=== PATIENT | female | born 1955 | race Caucasian/White ===

== ENCOUNTER 2018-12-08 20:03 | Inpatient (IN) | payer MEDICAID, OTHER | END 2018-12-11 13:30 | disposition home or self-care (01) | LOC: ER 20:03 → 4TH 21:00 ==

== ENCOUNTER 2019-01-10 07:44 | Outpatient (CLI) | payer MEDICAID ==
[~2019-01-10] VITALS: Ht 165.1 cm; Wt 74.7 kg
== END 2019-01-10 12:48 | disposition home or self-care (01) ==
LOC: PREOP 07:44
PROVIDERS: ATTEND Surgery
DX: Z01.818 Encounter for other preprocedural examination (principal)

== ENCOUNTER → 2019-01-11 | Day surgery (SDC) | payer MEDICAID ==
[2019-01-10] MEDS: MIDAZOLAM 2 MG/2 ML (VERSED) VIAL IVP ONE (13:54)
[~2019-01-11] VITALS: Ht 165.1 cm; Wt 74.7 kg
[~2019-01-11] MED LIST: ACET325T38 PO; ACETAMINOPHEN 325 MG TABLET PO PRN; AMLO10TA7 PO; ASCO-262 PO; ASPI-983 PO; ATOR80TA76 PO; BUDE10.2 INH; CALC300T4 PO; CARV3.122 PO; CLOP75TA69 PO; FERR-84 PO; GUAI120013 PO; HYDROcodone/APAP 5 MG/325 MG (LORTAB) TAB PO PRN; ISOS30TA3 PO; LIDOCAINE JELLY 2% 6 ML SYRINGE MM PRN; LIDOCAINE JELLY 2% 6 ML SYRINGE ONE; LOSA100T57 PO; MIDAZOLAM 2 MG/2 ML (VERSED) VIAL ONE; MULT-35 PO; MULT-351 PO; NITR0.4T42 SL; NS IV 500 ML 500 ML IV SCH; NS IV 500 ML 500 ML ONE; ONDANSETRON 4 MG/2 ML (SDV) Z0FRAN IV PRN; PANT40TA3 PO; SENN-36 PO; SUCR1TAB36 PO; ZINC50TA4 PO; fentaNYL INJECTION 100 MCG/2 ML AMP IVP ONE; fentaNYL INJECTION 100 MCG/2 ML AMP ONE; morphine INJ 10 MG/ML 1ML (SYR OR VIAL) IV PRN
--- NOTE | 2019-01-11 11:16 | Conscious Sedation/ASA ---
Conscious Sedation Pre-Proced Time 11:15 ASA Score 2 For ASA 3 and 4: Consider anesthesia and medical clearance. Also, for patients with a history of failed moderate sedation consider anesthesia. Airway Lungs Heart ASA score ASA 1: a normal healthy patient ASA 2: a patient with a mild systemic disease (mid diabetes, controlled hypertension, obesity ASA 3: a patient with a severe systemic disease that limits activity (angina , COPD, prior Myocardial infarction) ASA 4: a patient with an incapacitating disease that is a constant threat to life (CHF, renal failure) ASA 5: a moribund patient not expected to survive 24 hrs. (ruptured aneurysm) ASA 6: a declared brain- patient whose organs are being harvested. For emergent operations, add the letter E after the classification Mallampati Classification Grade 2 Sedation Plan Analgesia, Amnesia, Plan communicated to team members, Discussed options with patient/fam, Discussed risks with patient/fam The patient is an appropriate candidate to undergo the planned procedure, sedation, and anesthesia. The patient immediately re-assessed prior to indication. NED HICKMAN MD Jan 11, 2019 11:16
--- NOTE | 2019-01-11 11:18 | Progress Note-Pre Operative ---
Pre-Operative Progress Note H&P Reviewed The H&P was reviewed, patient examined and no changes noted. Date Seen by Provider: Jan 11, 2019 Time Seen by Provider: 11:15 Date H&P Reviewed: Jan 11, 2019 Time H&P Reviewed: 11:15 Pre-Operative Diagnosis: NED Jorge MD Jan 11, 2019 11:18
--- NOTE | 2019-01-11 11:22 | Discharge Inst-Surgical ---
D/C Lap Instructions-VICK Follow Up Appt 10 yrs Activity as tolerated High Fiber Diet 25g or more per day Avoid Alcohol, Caffeine, Spicy Argentine and Acid foods. Drink 64 fluid oz or more of fluids per day. Symptoms to Report: Fever over 101 degree F, Nausea/Vomiting If any problems/questions: Contact your physician or go to Emergency Room NED HICKMAN MD Jan 11, 2019 11:22
[2019-01-11 11:30] VITALS: BP 144/62
[2019-01-11] MEDS: MIDAZOLAM 2 MG/2 ML (VERSED) VIAL IVP ONE (13:54)
[2019-01-11 14:45] VITALS: BP 194/80
--- NOTE | 2019-01-11 14:55 | Progress Note-Post Operative ---
Post-Operative Progess Note Surgeon (s)/Welfare Investigator (s) Surgeon NED HICKMAN MD Welfare Investigator: none Pre-Operative Diagnosis screening Post-Operative Diagnosis chronic stage 2 ext and int hemorrhoids, mild stage 1 rectal prolapse. Procedure & Operative Findings Date of Procedure 01/11/19 Procedure Performed/Findings Colonoscopy. Anesthesia Type CS Estimated Blood Loss Estimated blood loss (mL): minimal Specimens/Packing Specimens Removed none NED HICKMAN MD Jan 11, 2019 14:55
[2019-01-11 15:15] VITALS: BP 191/69
[2019-01-11 15:25] VITALS: BP 191/69
--- NOTE | 2019-01-11 22:23 | OPERATIVE REPORT ---
DATE OF SERVICE: 01/11/2019 ATTENDING PRIMARY CARE PHYSICIAN: Dr. Villafana. PREOPERATIVE DIAGNOSIS: Anemia. POSTOPERATIVE DIAGNOSIS: Mild stage between stage I and II rectal prolapse with no active bleeding identified. There was also chronic stage II external and internal hemorrhoids. Remainder of the colon and rectum were normal. There were no bleeding sources identified. PROCEDURE: Colonoscopy. SURGEON: Ned Sanchez MD ANESTHESIA: Conscious sedation. ESTIMATED BLOOD LOSS: Minimal. FINDINGS: As above in the postoperative diagnosis. DISPOSITION: The patient tolerated the procedure well. INDICATIONS: The patient is a 63-year-old female with a history of coronary artery disease and myocardial infarction. She underwent a cardiac catheterization and two stents placed. She was on anticoagulation for this. She was seen by her elementary assistant principal at [facility] and she had blood work drawn due to a pale nature of her skin and found to be anemic with a hemoglobin of 5.3. She was admitted and given two units of blood, which increased appropriately. Upon further questioning, she had reported dark tarry stools and worsening shortness of breath as well as fatigue. On 12/09/2018, she underwent an EGD with biopsies. Findings included a reflux esophagitis between stage II and III small hiatal hernia 1.5 cm in size as well as a moderate gastritis and a formal ulcer of the antrum with an overlying fibrin clot, no active bleeding. The ulcer appeared small approximately 3 to 4 mm in diameter. Biopsies were negative for malignancy as well as negative for H. 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 Since that time, she has been on Protonix and Carafate as well as iron supplementation. She is referred again for a colonoscopy for she has not received a colonoscopy at this point in her life. She does not report any red blood per rectum. DESCRIPTION OF PROCEDURE: The patient was brought to the endoscopy suite, laid in left lateral decubitus position with head slightly elevated. After adequate IV pain and sedating medications and conscious sedation anesthesia, a digital rectal examination was performed. Mild chronic stage II external and internal hemorrhoids were identified, which were not actively edematous nor inflamed and no bleeding. Normal sphincter tone was felt and there were no palpable masses. There appeared to be an early stage I rectal prolapse with mild irritation of the rectal mucosa; however, no active bleeding. The endoscope was then intubated to the anus and rectum gently insufflated. A biopsy was taken of the area of irritation to rule out any other etiology. Endoscope was then advanced to the valves of Banuelos of the rectum with no polyps or any neoplasms identified. Through the sigmoid colon, there were no diverticulosis identified. The endoscope was then advanced to the remainder of the descending, transverse and ascending colon to the cecum. These segments were normal. There were no polyps or any neoplasms identified. The endoscope was then slowly withdrawn while taking a second look and suctioning of residual air with no additional findings. The patient tolerated the procedure well. We will recommend medical management with a high fiber diet with at least 30 grams of fiber per day as well as significant amounts of water to promote soft stools on a daily basis. She also needs defecography training with a pelvic positioning during defecation as well as no straining at any time. Job ID: [id number] DocumentID: [id number] Dictated Date: 01/11/2019 14:44:39 [place] [place]orker Date: 01/11/2019 22:23:16 Dictated By: NED SANCHEZ MD MTDD
== END | disposition home or self-care (01) ==
LOC: ENDO 10:42
PROVIDERS: ATTEND Surgery
DX: Z12.11 Encounter for screening for malignant neoplasm of colon (principal); D50.9 Iron deficiency anemia, unspecified; K62.3 Rectal prolapse; K64.1 Second degree hemorrhoids; K21.0 Gastro-esophageal reflux disease with esophagitis; K44.9 Diaphragmatic hernia without obstruction or gangrene; K29.70 Gastritis, unspecified, without bleeding; K25.9 Gastric ulcer, unspecified as acute or chronic, without hemorrhage or perforation; I25.10 Atherosclerotic heart disease of native coronary artery without angina pectoris; I25.2 Old myocardial infarction; I73.9 Peripheral vascular disease, unspecified; I10 Essential (primary) hypertension; E78.00 Pure hypercholesterolemia, unspecified; K70.30 Alcoholic cirrhosis of liver without ascites; Z79.82 Long term (current) use of aspirin; Z79.899 Other long term (current) drug therapy; Z79.02 Long term (current) use of antithrombotics/antiplatelets; Z87.891 Personal history of nicotine dependence

== ENCOUNTER 2019-03-21 17:03 | Inpatient (IN) | payer MEDICAID ==
[~2019-03-21] VITALS: Ht 165.1 cm; Wt 77.1 kg
[~2019-03-21 17:03] MED LIST changes: -ACETAMINOPHEN 325 MG TABLET PO PRN; -HYDROcodone/APAP 5 MG/325 MG (LORTAB) TAB PO PRN; -LIDOCAINE JELLY 2% 6 ML SYRINGE MM PRN; -LIDOCAINE JELLY 2% 6 ML SYRINGE ONE; -MIDAZOLAM 2 MG/2 ML (VERSED) VIAL ONE; -NS IV 500 ML 500 ML IV SCH; -NS IV 500 ML 500 ML ONE; -ONDANSETRON 4 MG/2 ML (SDV) Z0FRAN IV PRN; -fentaNYL INJECTION 100 MCG/2 ML AMP IVP ONE; -fentaNYL INJECTION 100 MCG/2 ML AMP ONE; -morphine INJ 10 MG/ML 1ML (SYR OR VIAL) IV PRN
[2019-03-21] MEDS ORDERED: FAMOTIDINE 20MG/2ML IV (PEPCID) IVP ONE (17:30)
[2019-03-21] MEDS ORDERED: ONDANSETRON 4 MG/2 ML (SDV) Z0FRAN IVP ONE (17:30)
--- NOTE | 2019-03-21 17:30 | ED Abdominal Pain ---
General Stated Complaint: NAUSEA,WEAK,HEADACHE,LEGS NUMB Source of Information: Patient Exam Limitations: No Limitations History of Present Illness Date Seen by Provider: Mar 21, 2019 Time Seen by Provider: 17:27 Initial Comments Patient is a 63-year-old female with history of peripheral vascular disease, peptic ulcer disease and chronic anemia requiring transfusion in November 2018who presents with generalized weakness fatigue and increased shortness of breath over the past 10 days. Patient also reports black tarry and intermittent upper abdominal pain. Reports nausea, denies vomiting, hematemesis or coffee- ground emesis. Denies chest pain and palpitations. Patient is currently on aspirin and Plavix for treatment of peripheral vascular disease. She states she ran out of iron pills one month ago and is currently between medical providers. No other acute symptoms or complaints. Timing/Duration: 1 Week Severity/Quality: Moderate Location: Epigastric Radiation: No Radiation Activities at Onset: None Modifying Factors: Improves With Eating Associated Symptoms: No Back Pain, No Chest Pain, No Fever/Chills; Fatigue, Heartburn, Nausea/Vomiting; No Syncope; Weakness Allergies and Home Medications Allergies Coded Allergies: No Known Drug Allergies (Unverified , 01/10/19) Home Medications Acetaminophen 325 Mg Tablet, 650 MG PO Q6H PRN for PAIN-MILD, (Reported) Amlodipine Besylate 10 Mg Tablet, 10 MG PO DAILY, (Reported) Ascorbate Calcium 500 Mg Tablet, 500 MG PO DAILY, (Reported) Aspirin 81 Mg Tablet.dr, 81 MG PO DAILY, (Reported) Atorvastatin Calcium 80 Mg Tablet, 80 MG PO DAILY, (Reported) Budesonide/Formoterol Fumarate 10.2 Gm Hfa.aer.ad, 2 PUFF INH BID PRN for SHORTNESS OF BREATH, (Reported) Calcium Carbonate 300 Mg Tab.chew, 500 MG PO DAILY, (Reported) Carvedilol 3.125 Mg Tablet, 3.125 MG PO BID, (Reported) Clopidogrel Bisulfate 75 Mg Tablet, 75 MG PO DAILY, (Reported) Ferrous Sulfate 325 Mg Tablet, 325 MG PO Q48H Prescribed by: RUSSELL EVANS on 12/11/18 1124 Guaifenesin 1,200 Mg Tab.er.12h, 1,200 MG PO BID, (Reported) Isosorbide Mononitrate 30 Mg Tab.er.24h, 30 MG PO DAILY, (Reported) Losartan Potassium 100 Mg Tablet, 100 MG PO DAILY, (Reported) Multivitamin 1 Each Tablet, 1 EACH PO DAILY, (Reported) Nitroglycerin 0.4 Mg Tab.subl, 0.4 MG SL UD PRN for CHEST PAIN, (Reported) Pantoprazole Sodium 40 Mg Tablet.dr, 40 MG PO DAILY@0700 Prescribed by: RUSSELL EVANS on 12/11/18 1112 Sennosides 8.6 Mg Tablet, 8.6 MG PO DAILY, (Reported) Sucralfate 1 Gm Tablet, 1 GM PO QID, (Reported) Zinc Gluconate 50 Mg Tablet, 50 MG PO DAILY, (Reported) Patient Home Medication List Home Medication List Reviewed: Yes Review of Systems Review of Systems Constitutional: see HPI EENTM: See HPI Respiratory: See HPI Gastrointestinal: See HPI Genitourinary: See HPI Musculoskeletal: see HPI Skin: see HPI Psychiatric/Neurological: See HPI Endocrine: See HPI Past Bwvozjl-Snnfqs-Gipkid Hx Past Med/Social Hx: Reviewed Nursing Past Med/Soc Hx Patient Social History Drug of Choice: HX ETOH ABUSE Type Used: Cigarettes Former Smoker, Quit: Nov 22, 2015 2nd Hand Smoke Exposure: No Recent Foreign Travel: No Contact w/Someone Who Travel: No Immunizations Up To Date Date of Pneumonia Vaccine: Nov 28, 2018 Date of Influenza Vaccine: Aug 22, 2018 Seasonal Allergies Seasonal Allergies: No Past Medical History Surgeries: Yes (CARDIAC CATH--STENTS X 2; CERVICAL CONIZATION) Cardiac, Coronary Stent, Gallbladder Respiratory: Yes COPD Cardiac: Yes Coronary Artery Disease, Heart Attack, High Cholesterol, Hypertension, Peripheral Vascular Neurological: Yes Headaches /Migraines Reproductive Disorders: Yes (CERVICAL DYSPLASIA. 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 9.6oz. 74.275287vl; 27.4 BMI Method:Stated General Appearance: WD/WN, no apparent distress HEENT: PERRL/EOMI, normal ENT inspection, pharynx normal, pale conjunctivae (R) , pale conjunctivae (L) Neck: full range of motion, supple Respiratory: chest non-tender, lungs clear Cardiovascular: regular rate, rhythm Gastrointestinal: soft, tenderness (mild epigastric pain, tenderness.) Extremities: normal range of motion, non-tender Back: normal inspection Skin: pallor Focused Exam Sepsis Stage: Ruled Out Progress/Results/Core Measures Results/Orders Lab Results Laboratory Tests Test 03/21/19 17:17 Range/Units White Blood Count 8.2 4.3-11.0 10^3/uL Red Blood Count 2.33 L 4.35-5.85 10^6/uL Hemoglobin 4.9 *L 11.5-16.0 G/DL Hematocrit 18 *L 35-52 % Mean Corpuscular Volume 79 L 80-99 FL Mean Corpuscular Hemoglobin 21 L 25-34 PG Mean Corpuscular Hemoglobin Concent 27 L 32-36 G/DL Red Cell Distribution Width 18.6 H 10.0-14.5 % Platelet Count 333 130-400 10^3/uL Mean Platelet Volume 10.8 H 7.4-10.4 FL Neutrophils (%) (Auto) 69 42-75 % Lymphocytes (%) (Auto) 23 12-44 % Monocytes (%) (Auto) 8 0-12 % Eosinophils (%) (Auto) 1 0-10 % Basophils (%) (Auto) 0 0-10 % Neutrophils # (Auto) 5.7 1.8-7.8 X 10^3 Lymphocytes # (Auto) 1.8 1.0-4.0 X 10^3 Monocytes # (Auto) 1.0 0.0-1.0 X 10^3 Eosinophils # (Auto) 0.0 0.0-0.3 10^3/uL Basophils # (Auto) 0.0 0.0-0.1 10^3/uL Sodium Level 141 135-145 MMOL/L Potassium Level 4.1 3.6-5.0 MMOL/L Chloride Level 105 98-107 MMOL/L Carbon Dioxide Level 16 L 21-32 MMOL/L Anion Gap 20 H 5-14 MMOL/L Blood Urea Nitrogen 19 H 7-18 MG/DL Creatinine 0.74 0.60-1.30 MG/DL Estimat Glomerular Filtration Rate > 60 BUN/Creatinine Ratio 26 Glucose Level 125 H 70-105 MG/DL Calcium Level 8.6 8.5-10.1 MG/DL Troponin T 74 H <=10 NG/L My Orders Orders - ALEJANDRA HUIZAR DO Ekg Tracing (03/21/19 17:25) Troponin T (03/21/19 17:25) Basic Metabolic Panel (03/21/19 17:25) Cbc With Automated Diff (03/21/19 17:25) Occult Blood Stool (03/21/19 17:25) Famotidine Injection (Pepcid Injection) (03/21/19 17:30) Ondansetron Injection (Zofran Injectio (03/21/19 17:30) Ua Culture If Indicated (03/21/19 17:31) Lipase (03/21/19 17:31) Type And Screen (03/21/19 17:31) Protime With Inr (03/21/19 17:43) Medications Given in ED Current Medications Medications Dose Ordered Sig/Zulma Route Start Time Stop Time Status Last Admin Dose Admin Famotidine 20 mg ONCE ONCE IVP 03/21/19 17:30 03/21/19 17:31 DC 03/21/19 17:36 20 MG Ondansetron HCl 4 mg ONCE ONCE IVP 03/21/19 17:30 03/21/19 17:31 DC 03/21/19 17:36 4 MG Initial ECG Impression: Normal Departure Communication (Admissions) Vital signs stable with exception of low O2 saturation. Patient has history of chronic lung disease placed on 2 L nasal cannula. IV Pepcid and Zofran given. The globe is 4.9, hematocrit 18. Type and cross ordered. No crossmatched blood available at this facility. Dr. Prince accepts patient for admission at [facility]. Patient stable at time of transfer. Impression Primary Impression: Symptomatic anemia Disposition: ADMITTED INPATIENT Condition: Stable Transfer Time Spoke to Accepting Phy: 17:58 Departure-Patient Inst. Referrals: CURLY FORREST DO (PCP/Family) Primary Care Physician ALEJANDRA HUIZAR DO Mar 21, 2019 17:30
[2019-03-21 17:40] LABS: HEMOGLOBIN 4.9 G/DL (11.5-16.0); MEAN CORPUSCULAR HEMOGLOBIN 21 PG (25-34); WHITE BLOOD COUNT 8.2 10^3/uL (4.3-11.0)
[2019-03-21 17:41] LABS: BASOPHILS % (AUTO) 0 % (0-10); EOSINOPHILS % (AUTO) 1 % (0-10); HEMATOCRIT 18 % (35-52); LYMPHOCYTES # (AUTO) 1.8 X 10^3 (1.0-4.0); LYMPHOCYTES % (AUTO) 23 % (12-44); MEAN CORPUSCULAR HGB CONC 27 G/DL (32-36); MEAN CORPUSCULAR VOLUME 79 FL (80-99); MEAN PLATELET VOLUME 10.8 FL (7.4-10.4); MONOCYTES % (AUTO) 8 % (0-12); NEUTROPHILS # (AUTO) 5.7 X 10^3 (1.8-7.8); NEUTROPHILS % (AUTO) 69 % (42-75); PLATELET COUNT 333 10^3/uL (130-400); RED CELL DISTRIBUTION WIDTH 18.6 % (10.0-14.5)
--- NOTE | 2019-03-21 17:45 | NUR ---
PT IS ACCEPTED AT [facility]. AWAIT ROOM NUMBER
[2019-03-21 17:51] LABS: SODIUM 141 MMOL/L (135-145)
[2019-03-21 17:52] LABS: BUN/CREATININE RATIO 26; CALCIUM 8.6 MG/DL (8.5-10.1); CARBON DIOXIDE 16 MMOL/L (21-32); CHLORIDE 105 MMOL/L (98-107); CREATININE SERUM 0.74 MG/DL (0.60-1.30); GFR ESTIMATED > 60; GLUCOSE 125 MG/DL (70-105); POTASSIUM 4.1 MMOL/L (3.6-5.0)
[2019-03-21 18:02] LABS: INR 1.1 (0.8-1.4); PROTHROMBIN TIME PATIENT 14.3 SEC (12.2-14.7)
--- NOTE | 2019-03-21 18:15 | NUR ---
CALLED GROUND SUPPORT EQUIPMENT ASSEMBLER AND NOTIFIED SHE GAVE ROOM NUMBER TO REGISTRATION EARLIER. WENT TO REGISTRATION TO RECEIVE ROOM NUMBER AND GIVE ORDERS FOR ADMIT.
--- NOTE | 2019-03-21 18:32 | NUR ---
ATTEMPT PT REPORT, DUE TO INCLEMENT WEATHER CONDITIONS WITH TORNADO WARNING/HIGH WINDS PT REMAINS IN [facility] [place] NURSING STAFF MOVING PTS TO SAFE LOCATIONS. WILL ATTEMPT REPORT AGAIN WEATHER MONITORED.
--- NOTE | 2019-03-21 18:40 | NUR ---
FAXED EMS REQUEST TO [facility]
--- NOTE | 2019-03-21 18:48 | NUR ---
EMS HERE READY FOR TRANSPORT.
--- NOTE | 2019-03-21 19:00 | NUR ---
UNABLE TO GIVE REPORT AT THIS TIME R/T SHIFT CHANGE.
--- NOTE | 2019-03-21 19:20 | NUR ---
CALL REC'D FROM MARIA ALEJANDRA LEIGH AND REPORT GIVEN.
[2019-03-21] MEDS ORDERED: NS IV 500 ML 500 ML IV ONE (20:00)
--- NOTE | 2019-03-21 20:00 | NUR ---
ILIR HOOK admitted to room 426-1, with an admitting diagnosis of BLOOD LOSS ANEMIA, on 03/21/19 from [facility] via EMS STRETCHER, accompanied by EMS STAFF.ILIR HOOK introduced to surroundings, call light, bed controls, phone, TV, temperature control, lights, meal times, smoking policy, visitor policy, side rail policy, bathrooms and showers. Patient Rights given to patient in the handbook.ILIR HOOK verbalizes understanding that [facility] is not responsible for the loss or damage to any personal effects or valuables that are kept in the patients posession during their hospitalization.
[2019-03-21 20:59] VITALS: BP 146/58
[2019-03-21 21:05] VITALS: BP 103/49
[2019-03-21 21:16] VITALS: BP 155/66
[2019-03-21 22:59] VITALS: BP 186/88
--- NOTE | 2019-03-21 23:15 | NUR ---
PT REPORTS AT THIS TIME THAT HER BLOOD PRESSURE READS HIGHER ON ONE SIDE THAN THE OTHER D/T BLOCKAGE IN HER NECK. BP HAS BEEN OBTAINED ON RT ARM DURING BLOOD TRANSFUSIONS CURRENT BP ON RT SIDE IS 214/88, BP OBTAINED ON LEFT SIDE AND IS 150/67 HR 70 RR 14 SPO2 98%/3LPM NC TEMP 97.7
[2019-03-21 23:16] VITALS: BP 150/67
[2019-03-22] VITALS (7 sets, daily range): BP systolic 103–162; BP diastolic 62–75
[2019-03-22] MEDS ORDERED: FUROSEMIDE 40 MG/4 ML INJ (LASIX) IVP ONE (01:30)
[2019-03-22 04:37] LABS: BASOPHILS % (AUTO) 0 % (0-10); EOSINOPHILS # (AUTO) 0.1 10^3/uL (0.0-0.3); EOSINOPHILS % (AUTO) 1 % (0-10); HEMATOCRIT 27 % (35-52); HEMOGLOBIN 8.1 G/DL (11.5-16.0); LYMPHOCYTES # (AUTO) 2.1 X 10^3 (1.0-4.0); LYMPHOCYTES % (AUTO) 26 % (12-44); MEAN CORPUSCULAR HEMOGLOBIN 24 PG (25-34); MEAN CORPUSCULAR HGB CONC 30 G/DL (32-36); MEAN CORPUSCULAR VOLUME 79 FL (80-99); MONOCYTES # (AUTO) 0.7 X 10^3 (0.0-1.0); MONOCYTES % (AUTO) 9 % (0-12); NEUTROPHILS % (AUTO) 63 % (42-75); PLATELET COUNT 265 10^3/uL (130-400); WHITE BLOOD COUNT 7.9 10^3/uL (4.3-11.0)
[2019-03-22 04:55] LABS: ALANINE AMINOTRANSFERASE 13 U/L (0-55); ALBUMIN 4.2 GM/DL (3.2-4.5); ALKALINE PHOSPHATASE 98 U/L (40-136); BILIRUBIN,TOTAL 1.6 MG/DL (0.1-1.0); BUN/CREATININE RATIO 20; CALCIUM 9.2 MG/DL (8.5-10.1); CARBON DIOXIDE 17 MMOL/L (21-32); CHLORIDE 111 MMOL/L (98-107); CREATININE SERUM 0.81 MG/DL (0.60-1.30); GFR ESTIMATED > 60; GLUCOSE 99 MG/DL (70-105); SODIUM 141 MMOL/L (135-145); TOTAL PROTEIN 6.8 GM/DL (6.4-8.2)
[2019-03-22] MEDS: FAMOTIDINE 20MG/2ML IV (PEPCID) IVP SCH ×2 (09:02→20:52)
[2019-03-22] MEDS ORDERED: ALBU6.7H8 INH (09:28)
[2019-03-22] MEDS ORDERED: PANT40TA2 PO (09:28)
[2019-03-22] MEDS ORDERED: CALC-654 PO (09:43)
[2019-03-22] MEDS ORDERED: ACET-168 PO (09:43)
[2019-03-22] MEDS ORDERED: FERR325T18 PO (09:43)
--- NOTE | 2019-03-22 09:45 | NUR ---
SPOKE WITH THE PATIENT ABOUT HER MEDICATIONS. SHE HAD A LIST WITH HER AND I COMPARED IT WITH THE EXT MED HX. HER LIST HAS AMLODIPINE AND PLAVIX ON IT HOWEVER [employer] HAS NEVER FILLED THIS FOR HER. SHE STATES SHE IS UNSURE IF SHE HAS THEM ON HAND AT HOME WITHOUT LOOKING AT HER BOTTLES BUT SHE DOES NOT FILL ANYTHING ANYWHERE OTHER THAN [facility] AND SHE DOES NOT RECEIVE SAMPLES OF ANYTHING. I REMOVED THEM FROM THE MED REC AT THIS TIME AND WROTE THEM DOWN FOR HER TO CHECK AT HOME AND WITH HER HEART DR. AT AFTER DISCHARGE. SHE STATES SHE IS CURRENTLY OUT OF HER IRON AND NEEDS TO GET IT REFILLED BUT DOES TAKE IT EVERY OTHER DAY WHEN SHE HAS IT. IT WAS LAST FILLED #15 01-23-19. SHE STATES HER SYMBICORT WHICH WAS FILLED LAST 11-02-18 WAS DISCONTINUED AND SHE IS TO USE THE PROVENTIL BID AND PRN. SHE STATES SHE DOES NOT NITROGLYCERIN ON HAND AT HOME IF NEEDED BUT IT WAS LAST FILLED IN 2016 WHEN HER STENTS WERE PLACED SO SHE MAY NEED TO GET A NEW SCRIPT THAT IS NOT . SHE TAKES THE FOLLOWING OTC: ZINC DAILY TYLENOL PRN VITAMIN C DAILY ASPIRIN 81MG DAILY CALCIUM +D DAILY MUCINEX PRN MTV DAILY SENNA PRN
--- NOTE | 2019-03-22 10:47 | History & Physical-Hospitalist ---
History of Present Illness HPI/Chief Complaint CC: Severe anemia HPI: This is a 63-year-old white female with Dr. VILLAFANA who presented to [facility] was found to have severe anemia with severe weakness requiring inpatient hospitalization with blood transfusions that were completed without complication last night. Dr. Sanchez is been consulted and will perform EGD tomorrow considering she had peptic ulcer disease diagnosed November 2018. Patient is with few details about her medical history so I obtained most of the information for this chart note with prior information in the chart. Currently patient feels much better and has no blood in the stool and no hematemesis. Source: patient Exam Limitations: no limitations Date Seen 03/22/19 Time Seen by a Provider: 09:45 Attending Physician Morgan Gorman MD PCP Junior Villafana DO Referring Physician Date of Admission Mar 21, 2019 at 17:15 Home Medications & Allergies Home Medications Reviewed patient Home Medication Reconciliation performed by pharmacy medication reconciliations cardiac cath technician and/or nursing. Patients Allergies have been reviewed. Allergies Allergies Coded Allergies No Known Drug Allergies (Unverified01/10/19) Past Ogdshay-Upsqup-Yzoimj Hx Past Med/Social Hx: Reviewed Nursing Past Med/Soc Hx, Reviewed and Corrections made Patient Social History Marrital Status: single Employed/Student: unemployed Alcohol Use: Past History Recreational Drug Use: No Drug of Choice: HX ETOH ABUSE Smoking Status: Former Smoker Former Smoker, Quit: Nov 22, 2015 Type Used: Cigarettes 2nd Hand Smoke Exposure: No Recent Foreign Travel: No Contact w/other who traveled: No Recent Hopitalizations: No Recent Infectious Disease Expo: No Immunizations Up To Date Date of Pneumonia Vaccine: Dec 11, 2018 Date of Influenza Vaccine: Aug 22, 2018 Seasonal Allergies Seasonal Allergies: No Past Medical History Surgeries: Cardiac, Coronary Stent, Gallbladder Cardiac: Coronary Artery Disease, Heart Attack, High Cholesterol, Hypertension , Peripheral Vascular Neurological: Headaches /Migraines Reproductive: Yes (CERVICAL DYSPLASIA. --S/P CRYOTHERAPY AND CONIZATION) Menopausal Genitourinary: Renal Failure Gastrointestinal: Gastroesophageal Reflux, Liver Disease/Jaundice, Cirrhosis Peptic ulcer disease November [address] Sanchez Musculoskeletal: Arthritis, Chronic Back Pain History of Blood Disorders: Yes (ANEMIA --CURRENT PROBLEM STARTING 12/08/18) Family History Heart Disease, Diabetes Review of Systems Constitutional: see HPI, weakness EENTM: no symptoms reported Respiratory: no symptoms reported Cardiovascular: no symptoms reported Gastrointestinal: no symptoms reported Genitourinary: no symptoms reported Musculoskeletal: no symptoms reported Skin: no symptoms reported Psychiatric/Neurological: No Symptoms Reported All Other Systems Reviewed Negative Unless Noted: Yes Physical Exam Physical Exam Vital Signs Vital Signs - First Documented 03/21/19 03/21/19 17:10 20:59 Temp 97.1 Pulse 87 Resp 24 B/P (MAP) 183/56 (98) Pulse Ox 99 O2 Delivery Room Air O2 Flow Rate 3.00 Capillary Refill : Less Than 3 Seconds Height, Weight, BMI Height: 5'5.00" Weight: 170lbs. 9.6oz. 77.405798yf; 27.4 BMI Method:Stated General Appearance: No Apparent Distress, WD/WN, Chronically ill Eyes: Right Eye Normal Inspection, Right Eye PERRL HEENT: PERRL/EOMI, Normal ENT Inspection, Pharynx Normal, Moist Mucous Membranes Neck: Full Range of Motion, Normal Inspection, Non Tender Respiratory: Chest Non Tender, Lungs Clear, Normal Breath Sounds, No Accessory Muscle Use, No Respiratory Distress Cardiovascular: Regular Rate, Rhythm, No Edema, No Gallop, No JVD, No Murmur, Normal Peripheral Pulses Gastrointestinal: Normal Bowel Sounds, No Organomegaly, No Pulsatile Mass, Non Tender, Soft Back: Normal Inspection, No CVA Tenderness, No Vertebral Tenderness Extremity: Normal Capillary Refill, Normal Inspection, Normal Range of Motion, Non Tender, No Calf Tenderness, No Pedal Edema Neurologic/Psychiatric: Alert, Oriented x3, No Motor/Sensory Deficits, Normal Mood/Affect Skin: Normal Color, Warm/Dry Lymphatic: No Adenopathy Results Results/Procedures Labs Laboratory Tests 03/21/19 17:17 03/22/19 04:25 Patient resulted labs reviewed. Assessment/Plan Admission Diagnosis Assessment: Severe anemia with symptoms requiring 2 units of blood transfusions Plan: Resume home meds EGD by Dr. Sanchez tomorrow Clear liquids Monitor closely Admission Status: Inpatient Order (span 2 midnights) Reason for Inpatient Admission: Severe anemia requiring transfusions and endoscopy Diagnosis/Problems Diagnosis/Problems (1) Symptomatic anemia Status: Acute (2) Peptic ulcer Status: Chronic (3) Blood loss anemia Status: Acute (4) CAD (coronary artery disease) Status: Chronic Qualifiers: Coronary Disease-Associated Artery/Lesion type: hughes artery [place] vs. transplanted heart: hughes heart Associated angina: without angina Qualified Codes: I25.10 - Atherosclerotic heart disease of hughes coronary artery without angina pectoris (5) COPD (chronic obstructive pulmonary disease) Status: Chronic Qualifiers: COPD type: unspecified COPD Qualified Codes: J44.9 - Chronic obstructive pulmonary disease, unspecified (6) PAD (peripheral artery disease) Status: Chronic (7) CHF (congestive heart failure) Status: Chronic Qualifiers: Heart failure type: unspecified Heart failure chronicity: unspecified Qualified Codes: I50.9 - Heart failure, unspecified (8) HTN (hypertension) Status: Chronic Qualifiers: Hypertension type: essential hypertension Qualified Codes: I10 - Essential (primary) hypertension (9) Transfusion of blood during current hospitalisation Status: Acute Clinical Quality Measures DVT/VTE Risk/Contraindication: Risk Factor Score Per Nursin RFS Level Per Nursing on Admit: 4+=Very High GLENROY MAXWELL DO March 22, 2019 10:47
[2019-03-22] MEDS: SUCRALFATE 1 GM (CARAFATE) TAB PO SCH ×3 (11:37→20:53)
[2019-03-22] MEDS ORDERED: ACETAMINOPHEN 325 MG TABLET PO PRN (13:00)
[2019-03-22] MEDS ORDERED: SENNOSIDES 8.6 MG PO PRN (14:00)
[2019-03-22] MEDS ORDERED: NITROGLYCERIN 0.4 MG SL TABS BTL 25'S SL PRN (14:00)
[2019-03-22] MEDS ORDERED: RT-ALBUTEROL SULF 2.5 MG/3 ML PRE-MIX VIAL INH PRN (14:00)
[2019-03-22] MEDS ORDERED: NON-FORMULARY MEDICATION 1 EA EA (Acetaminophen (Acetaminophen Extra Strength) 1,000 MG) PO PRN (14:00)
[2019-03-22] MEDS ORDERED: SENNOSIDES 8.6 MG (SENOKOT) TAB PO PRN (14:15)
--- NOTE | 2019-03-22 15:32 | Progress Note-Pre Operative ---
Pre-Operative Progress Note H&P Reviewed The H&P was reviewed, patient examined and no changes noted. Date Seen by Provider: March 22, 2019 Time Seen by Provider: 15:30 Date H&P Reviewed: March 22, 2019 Time H&P Reviewed: 15:30 Pre-Operative Diagnosis: upper GI bleed NED HICKMAN MD March 22, 2019 15:32
--- NOTE | 2019-03-22 15:32 | Conscious Sedation/ASA ---
Conscious Sedation Pre-Proced Time 15:30 ASA Score 2 For ASA 3 and 4: Consider anesthesia and medical clearance. Also, for patients with a history of failed moderate sedation consider anesthesia. Airway Lungs Heart ASA score ASA 1: a normal healthy patient ASA 2: a patient with a mild systemic disease (mid diabetes, controlled hypertension, obesity ASA 3: a patient with a severe systemic disease that limits activity (angina , COPD, prior Myocardial infarction) ASA 4: a patient with an incapacitating disease that is a constant threat to life (CHF, renal failure) ASA 5: a moribund patient not expected to survive 24 hrs. (ruptured aneurysm) ASA 6: a declared brain- patient whose organs are being harvested. For emergent operations, add the letter E after the classification Mallampati Classification Grade 2 Sedation Plan Analgesia, Amnesia, Plan communicated to team members, Discussed options with patient/fam, Discussed risks with patient/fam The patient is an appropriate candidate to undergo the planned procedure, sedation, and anesthesia. The patient immediately re-assessed prior to indication. NED HICKMAN MD March 22, 2019 15:32
--- NOTE | 2019-03-22 20:29 | HISTORY AND PHYSICAL ---
DATE OF SERVICE: 03/22/2019 ATTENDING PHYSICIAN: Junior Villafana DO HISTORY OF PRESENT ILLNESS: The patient is a 63-year-old female who is known to us. She was seen in consultation with Dr. Sanchez. She does have a history of coronary artery disease and myocardial infarction. She underwent cardiac catheterization and has had two stents placed. She has been on anticoagulation for this. She was seen by her outreach professional at [facility] where she did have lab work drawn due to pale nature of her skin and was found to be anemic with a hemoglobin of 5.3. She was then admitted at that time, given two units of blood which increased appropriately. She had also reported at that time that she has been having dark tarry stools with worsening shortness of breath and fatigue. On 12/09/2018, she did undergo an EGD with biopsies where she was found to have a reflux esophagitis between stage II and III as well as a small hiatal hernia that was 1.5 cm in size as well as a moderate gastritis and a formal ulcer of the antrum with overlying fibrin clot with no active bleeding. The ulcer appeared to be small and was approximately 3-4 mm in size. Biopsies were negative for malignancy as well as negative for H. pylori. However, she did have gastroesophageal biopsies which were positive for Bocanegra's esophagus. Since then, she has been on Protonix and Carafate as well as iron supplementation. She was then seen by us in the hospital on 01/11/2019 where she did undergo a colonoscopy. At that time, she was found to have between stage I and II external and internal hemorrhoids; however, there was no active bleeding identified. There did appear to be an early stage I-II rectal prolapse with no active bleeding identified. The remainder of the colon and rectum were normal with no bleeding sources identified. The patient reports today that she presented to the emergency room at [facility] last night with increased shortness of breath, weakness, fatigue as well as dark tarry looking stools. The patient reports that this has been going on for approximately the last 5-6 days, but has gradually become worse. She reports that while in the emergency room, she was found to have a hemoglobin of 4.9. She did receive 2 units of packed red cells upon her admission and this did come up to 8.1. Upon further questioning, the patient does report heartburn and reflux, but denies any vomiting or hematemesis. She does report nausea as well as epigastric pain and discomfort. She denies any bright red blood in her stool as well as no fever or chills. She reports that she has been taking aspirin as well as Plavix daily. PAST MEDICAL HISTORY: Coronary artery disease, peripheral vascular disease, hypertension, hypercholesterolemia, history of myocardial infarction, migraines, gastroesophageal reflux disease, peptic ulcer disease, alcoholic liver cirrhosis, degenerative joint disease. PAST SURGICAL HISTORY: Cardiac catheterization with stent placement, laparoscopic cholecystectomy. ALLERGIES: No known drug allergies. MEDICATIONS: Aspirin 81 mg daily, isosorbide 30 mg daily, losartan 100 mg daily, Protonix 40 mg daily, carvedilol 3.125 mg b.i.d., senna 8.6 mg daily p.r.n., albuterol sulfate 2.5 mg p.r.n., nitroglycerin 0.4 mg p.r.n., Plavix 75 mg daily, Tylenol 650 mg q.6 hours p.r.n., amlodipine 10 mg daily, vitamin C daily, budesonide and formoterol 10.2 grams 2 puffs b.i.d. p.r.n., ferrous sulfate 325 mg every other day, guaifenesin 1200 mg b.i.d., multivitamin daily, Carafate 1 gram q.i.d., Zinc 50 mg daily. SOCIAL HISTORY: Previous smoker, greater than 80 pack years, quit in 2016. History of alcohol abuse and liver cirrhosis. FAMILY HISTORY: Noncontributory. REVIEW OF SYSTEMS: This is a well-nourished female in no acute distress. She does report episodes of shortness of breath with chronic cough. No chest pain, palpitations or diaphoresis. She does report nausea, but no vomiting. She does report epigastric burning and discomfort. No diarrhea or constipation. No bright red blood per rectum, but does report dark tarry stools. No fever or chills. No recent inadvertent weight loss. She does report weakness as well as fatigue. All other review of systems is negative. PHYSICAL EXAMINATION: VITAL SIGNS: Blood pressure 162/74, respirations 20, pulse 81, temperature 98.5, pulse ox 95% on room air. CHEST: Scattered rales and rhonchi bilaterally. HEART: Regular. No murmurs. EXTREMITIES: No lower extremity edema. Negative Homans sign. HEENT: No scleral icterus. No cervical lymphadenopathy. ABDOMEN: Soft, nondistended. There is some mild tenderness and discomfort in the epigastric region upon deep palpation. SKIN: Warm, dry, pink. NEUROLOGIC: Awake, alert, oriented x3. ASSESSMENT AND PLAN: A 63-year-old female with anemia as well as upper gastrointestinal bleed that is most likely secondary to peptic ulcer disease. She was found upon admission to have a hemoglobin of 4.9 and was transfused 2 units and this did come up to 8.1. We will continue with transfusions as appropriate as well as peptic ulcer disease prophylaxis. We will also proceed with a clear liquid diet at this time and IV fluids as well as IV nausea medication. We will also proceed with a repeat EGD on this admission. Job ID: [id number] DocumentID: [id number] Dictated Date: 03/22/2019 15:19:13 Casing Puller Date: 03/22/2019 20:28:33 Dictated By: EMILY HEREDIA APRN MTDD
[2019-03-22] MEDS: CARVEDILOL 3.125 MG (COREG) TABLET PO SCH (20:53)
[2019-03-22] MEDS ORDERED: NON-FORMULARY MEDICATION 1 EA EA (Carvedilol 3.125 MG) PO SCH (21:00)
--- NOTE | 2019-03-22 21:52 | CONSULTATION REPORT ---
DATE OF SERVICE: 03/22/2019 The patient is admitted to room 426. REFERRING PHYSICIAN: Stephanie Dave DO IMPRESSION: 1. A 63-year-old female admitted to the hospital with symptomatic anemia and a hemoglobin level of 4.9. 2. Status post packed red blood cell transfusion. 3. Previous history of esophageal gastritis and gastric ulcer diagnosed in 11/2018. 4. History of coronary artery disease and IL status post two stent placements in 2016. Also has a history of peripheral arterial disease including carotid artery disease. 5. Remote history of alcoholic cirrhosis diagnosed . RECOMMENDATIONS: 1. Agree with PRBC transfusion because of symptomatic anemia. 2. Proceed with EGD to reevaluate gastritis and gastric ulcer. 3. The patient has documented iron deficiency from 11/2018. She has been on oral iron replacement without significant benefit. She may benefit from parenteral iron therapy. 4. If the EGD shows no active ulcers or bleeding, the patient may need capsule endoscopy to evaluate the small bowel for a bleeding source. 5. I will obtain an alpha fetoprotein level because of a previous history of cirrhosis for screening of hepatocellular cancer. 6. We will follow the patient with you. BRIEF HISTORY: The patient is a 63-year-old female who came to the emergency room with complaints of increasing shortness of breath. She was found to have significant anemia with a hemoglobin level of 4.9 and was admitted to the hospital for further evaluation and management. She had a similar admission in 11/2018, at which time, an EGD was done during hospitalization, which showed esophageal gastritis with a small gastric antral ulcer. She also had a colonoscopy on an outpatient basis, which was unremarkable except for external and internal hemorrhoids. She did well for a month and started feeling weaker until the past few days she was significantly short of breath as well as weak, came to the emergency room. Hematology consultation was requested for further evaluation and recommendations of anemia. PAST MEDICAL HISTORY: Significant for symptomatic anemia in 11/2018 as mentioned above. The patient continues to have melena, but denied any obvious hematochezia. This is in spite of stopping the oral iron replacement a few months ago. She has had occasional nosebleeds, which stops within a few minutes. Denied any other areas of obvious bleeding. She has coronary artery disease and an IL in the past requiring 2 stents placement in 2016. She has history of hypertension for a long time and has been on treatment. She was also diagnosed with carotid artery disease as well as peripheral arterial disease. She has history of COPD. She was diagnosed with cirrhosis of liver several years ago following a liver biopsy. The etiology was reported as alcoholic. SOCIAL HISTORY: The patient is and lives in [place], [place]. She has a daughter from the current marriage and two sons from a previous marriage. All of her children are adults and they all lives in [place]. She has extensive history of tobacco use starting at age 17 and quit in 2016. Before quitting, she was smoking up to 3 packs of cigarettes a day. She has a more than [id number] history of tobacco use in total. She also has extensive alcohol use. She was drinking a 6-pack of beer and a quart of hard liquor a day for 20 or more years. She quit drinking several years ago. Denied any other recreational drug use. FAMILY HISTORY: Unremarkable with no major medical problems in the family. No significant bleeding disorders in the family. The only malignancy in the family is head and neck cancer in her maternal grandfather. The patient has no knowledge or contact of her paternal side of family or medical history. PHYSICAL EXAMINATION: GENERAL: Today showed an elderly female, well developed, well nourished, awake and oriented, weak appearing, in no acute distress. VITAL SIGNS: Temperature was 98.5, pulse rate of 81, respirations 20, blood pressure 162/74, oxygen saturation of 95% on room air. HEENT: Normocephalic, extraocular muscles intact, conjunctivae pale, sclerae anicteric. oral mucosa moist. NECK: Supple, with no JVD. No cervical, supraclavicular or axillary lymphadenopathy palpable. CHEST: Symmetrical. LUNGS: Fairly clear to auscultation without wheezes or rales. CARDIOVASCULAR: Regular in rate and rhythm with occasional missed beats. No murmurs or gallops heard. ABDOMEN: Obese, soft, nontender with no hepatosplenomegaly or other masses palpable. EXTREMITIES: Showed no edema. NEUROLOGIC: Grossly intact without focal motor deficits. LABORATORY DATA: CBC done on 03/21/2019 at the time of admission showed WBC 8.2, hemoglobin 4.9, MCV 79, platelet count 333,000 with neutrophil count 5.7, lymphocyte count 1.8 and monocyte count 1.0. She received 2 units of packed red blood cell transfusion and follow up CBC done today showed white count 7.9, hemoglobin 8.1, MCV 79, platelet count 265,000 with normal differential count. Chemistry panel done at the time of admission showed relatively normal electrolytes except CO2 level of 16. BUN was 19 and creatinine 0.74 with GFR more than 60 mL per minute. A CMP done today showed total bilirubin elevated at 1.6 with rest of the liver function studies within normal limits including albumin level of 4.2. Protime was 14.3 with INR of 1.1. EGD done on 12/09/2018 showed reflux esophagitis stage II-III, small hiatal hernia measuring 1.5 cm in size, moderate gastritis with an antral ulcer with overlying fibrin clot. No active bleeding. The pylorus and duodenum appeared normal. Colonoscopy done on 01/12/2019 showed only external and internal hemorrhoids and small rectal polyp, which on pathology report turned out to be a hyperplastic polyp. Thank you for allowing me to participate in this patient's care. I will follow the patient with you and make appropriate recommendations. Job ID: [id number] DocumentID: [id number] Dictated Date: 03/22/2019 15:59:41 Sales Data Analyst Date: 03/22/2019 21:52:05 Dictated By: DO PEREZ MD
[2019-03-23 00:06] VITALS: BP 161/82
[2019-03-23 04:44] VITALS: BP 155/71
[2019-03-23] MEDS: PANTOPRAZOLE 40 MG (PROTONIX) TAB PO SCH (05:27)
[2019-03-23] MEDS: SUCRALFATE 1 GM (CARAFATE) TAB PO SCH ×4 (05:27→21:23)
[2019-03-23 06:17] LABS: BASOPHILS % (AUTO) 0 % (0-10); EOSINOPHILS # (AUTO) 0.2 10^3/uL (0.0-0.3); EOSINOPHILS % (AUTO) 3 % (0-10); HEMATOCRIT 27 % (35-52); HEMOGLOBIN 7.9 G/DL (11.5-16.0); LYMPHOCYTES # (AUTO) 2.2 X 10^3 (1.0-4.0); LYMPHOCYTES % (AUTO) 37 % (12-44); MEAN CORPUSCULAR HEMOGLOBIN 23 PG (25-34); MEAN CORPUSCULAR HGB CONC 29 G/DL (32-36); MEAN CORPUSCULAR VOLUME 79 FL (80-99); MEAN PLATELET VOLUME 11.2 FL (7.4-10.4); MONOCYTES # (AUTO) 0.7 X 10^3 (0.0-1.0); MONOCYTES % (AUTO) 11 % (0-12); NEUTROPHILS # (AUTO) 2.9 X 10^3 (1.8-7.8); NEUTROPHILS % (AUTO) 49 % (42-75); PLATELET COUNT 274 10^3/uL (130-400); RED CELL DISTRIBUTION WIDTH 18.2 % (10.0-14.5)
[2019-03-23 06:36] LABS: ALANINE AMINOTRANSFERASE 13 U/L (0-55); ALKALINE PHOSPHATASE 96 U/L (40-136); BILIRUBIN,TOTAL 0.9 MG/DL (0.1-1.0); BUN/CREATININE RATIO 21; CALCIUM 9.1 MG/DL (8.5-10.1); CARBON DIOXIDE 19 MMOL/L (21-32); CHLORIDE 109 MMOL/L (98-107); CREATININE SERUM 0.78 MG/DL (0.60-1.30); GFR ESTIMATED > 60; GLUCOSE 95 MG/DL (70-105); POTASSIUM 3.9 MMOL/L (3.6-5.0); SODIUM 140 MMOL/L (135-145); TOTAL PROTEIN 6.7 GM/DL (6.4-8.2)
[2019-03-23 08:00] VITALS: BP 162/79
[2019-03-23] MEDS: FAMOTIDINE 20MG/2ML IV (PEPCID) IVP SCH ×2 (08:47→21:23)
[2019-03-23] MEDS: ISOSORBIDE MONONITRATE 30 MG (IMDUR) TAB PO SCH (08:48)
[2019-03-23] MEDS: LOSARTAN 100 MG (COZAAR) TABLET PO SCH (08:48)
[2019-03-23] MEDS: CARVEDILOL 3.125 MG (COREG) TABLET PO SCH ×2 (08:48→21:23)
--- NOTE | 2019-03-23 09:07 | NUR ---
NOTE THAT PT WAS GIVEN AM PO MEDS - COREG 3.125 MG TAB, COZAAR 100 MG TAB, AND IMDUR 30 MG TAB -- WITH SIP OF WATER -- DR HICKMAN AWARE
[2019-03-23] MEDS ORDERED: NS IV 1000 ML 1,000 ML IV SCH (09:45)
--- NOTE | 2019-03-23 10:19 | Progress Note-Hospitalist ---
Subjective HPI/CC On Admission Date Seen by Provider: March 23, 2019 Time Seen by Provider: 09:45 CC: Severe anemia HPI: This is a 63-year-old white female with Dr. FORREST who presented to [facility] was found to have severe anemia with severe weakness requiring inpatient hospitalization with blood transfusions that were completed without complication last night. Dr. Sanchez is been consulted and will perform EGD tomorrow considering she had peptic ulcer disease diagnosed November 2018. Patient is with few details about her medical history so I obtained most of the information for this chart note with prior information in the chart. Currently patient feels much better and has no blood in the stool and no hematemesis. Subjective/Events-last exam Patient doing well No bowel movement yet No report of bloody stools Checked meds and labs Hemoglobin stable EGD today at [address] Sanchez Feels pretty good Normal saline at 60 mL an hour maintenance will be started since that such a late afternoon procedure and will prevent volume overload due to history of cardiac issues Review of Systems Pulmonary: Dyspnea Objective Exam Vital Signs Vital Signs Date Time Temp Pulse Resp B/P (MAP) Pulse Ox O2 Delivery O2 Flow Rate FiO2 03/23/19 08:00 97.1 64 18 162/79 (106) 94 Nasal Cannula 2.00 Capillary Refill : Less Than 3 Seconds General Appearance: No Apparent Distress, WD/WN, Chronically ill HEENT: PERRL/EOMI, Normal ENT Inspection, Pharynx Normal, Moist Mucous Membranes Neck: Full Range of Motion, Normal Inspection, Non Tender Respiratory: Chest Non Tender, Lungs Clear, Normal Breath Sounds, No Accessory Muscle Use, No Respiratory Distress Cardiovascular: Regular Rate, Rhythm, No Edema, No Gallop, No JVD, No Murmur, Normal Peripheral Pulses Gastrointestinal: Normal Bowel Sounds, No Organomegaly, No Pulsatile Mass, Non Tender, Soft Back: Normal Inspection, No CVA Tenderness, No Vertebral Tenderness Extremity: Normal Capillary Refill, Normal Inspection, Normal Range of Motion, Non Tender, No Calf Tenderness, No Pedal Edema Neurologic/Psychiatric: Alert, Oriented x3, No Motor/Sensory Deficits, Normal Mood/Affect Skin: Normal Color, Warm/Dry Lymphatic: No Adenopathy Results/Procedures Lab Laboratory Tests 03/23/19 05:45 Patient resulted labs reviewed. Assessment/Plan Assessment and Plan Assess & Plan/Chief Complaint Assessment: Severe anemia with symptoms requiring 2 units of blood transfusions Plan: Resumed home meds EGD by Dr. Sanchez today NPO Diagnosis/Problems Diagnosis/Problems (1) Symptomatic anemia Status: Acute (2) Peptic ulcer Status: Chronic (3) Blood loss anemia Status: Acute (4) CAD (coronary artery disease) Status: Chronic Qualifiers: Coronary Disease-Associated Artery/Lesion type: qu[place] artery Hoh vs. transplanted heart: qu[place] heart Associated angina: without angina Qualified Codes: I25.10 - Atherosclerotic heart disease of [place] coronary artery without angina pectoris (5) COPD (chronic obstructive pulmonary disease) Status: Chronic Qualifiers: COPD type: unspecified COPD Qualified Codes: J44.9 - Chronic obstructive pulmonary disease, unspecified (6) PAD (peripheral artery disease) Status: Chronic (7) CHF (congestive heart failure) Status: Chronic Qualifiers: Heart failure type: unspecified Heart failure chronicity: unspecified Qualified Codes: I50.9 - Heart failure, unspecified (8) HTN (hypertension) Status: Chronic Qualifiers: Hypertension type: essential hypertension Qualified Codes: I10 - Essential (primary) hypertension (9) Transfusion of blood during current hospitalisation Status: Acute Clinical Quality Measures DVT/VTE Risk/Contraindication: Risk Factor Score Per Nursin RFS Level Per Nursing on Admit: 4+=Very High GLENROY MAXWELL DO March 23, 2019 10:19
--- NOTE | 2019-03-23 10:53 | NUR ---
TAKEN DOWN FOR EGD PER ENDO STAFF
[2019-03-23] MEDS ORDERED: NS IV 500 ML 500 ML IV ONE (11:00)
[2019-03-23] MEDS ORDERED: NS IV 500 ML 500 ML ONE (11:01)
[2019-03-23] MEDS ORDERED: LIDOCAINE JELLY 2% 6 ML SYRINGE ONE (11:01)
[2019-03-23] MEDS ORDERED: fentaNYL INJECTION 100 MCG/2 ML AMP ONE (11:01)
[2019-03-23] MEDS ORDERED: MIDAZOLAM 2 MG/2 ML (VERSED) VIAL ONE ×3 (11:01)
[2019-03-23] MEDS ORDERED: HURRICAINE EXT TUBE (BENZOCAINE) ONE (11:01)
[2019-03-23] MEDS ORDERED: HURRICAINE EXT TUBE (BENZOCAINE) XX PRN (11:45)
[2019-03-23] MEDS ORDERED: MIDAZOLAM 2 MG/2 ML (VERSED) VIAL IVP ONE (11:45)
[2019-03-23] MEDS ORDERED: LIDOCAINE JELLY 2% 6 ML SYRINGE MM PRN (11:45)
[2019-03-23] MEDS ORDERED: fentaNYL INJECTION 100 MCG/2 ML AMP IVP ONE (11:45)
--- NOTE | 2019-03-23 11:48 | Progress Note-Post Operative ---
Post-Operative Progess Note Surgeon (s)/Field Research Associate (s) Surgeon NED HICKMAN MD Field Research Associate: none Pre-Operative Diagnosis upper GI bleed Post-Operative Diagnosis reflux esophagitis(stage 2), moderate sized hiatal hernia(3cm), mild-moderate gastritis. no ulcers/bleed Procedure & Operative Findings Date of Procedure 03/23/19 Procedure Performed/Findings EGD with bx. Anesthesia Type cs Estimated Blood Loss Estimated blood loss (mL): minimal Specimens/Packing Specimens Removed ge jxn, antrum NED HICKMAN MD March 23, 2019 11:48
[2019-03-23 12:00] VITALS: BP 149/73
[2019-03-23 15:30] VITALS: BP 164/72
--- NOTE | 2019-03-23 16:33 | OPERATIVE REPORT ---
DATE OF SERVICE: 03/23/2019 ATTENDING PRIMARY CARE PHYSICIAN: Dr. Villafana. ADMITTING PHYSICIAN: Dr. Dave. PREOPERATIVE DIAGNOSIS: Upper gastrointestinal bleed. POSTOPERATIVE DIAGNOSES: Reflux esophagitis stage II, moderate size hiatal hernia approximately 3 cm in size. Mild to moderate gastritis. No ulcers or any active bleeding source identified. PROCEDURE: EGD with biopsy. SURGEON: Ned Sanchez MD ANESTHESIA: Conscious sedation. ESTIMATED BLOOD LOSS: Minimal. FINDINGS: Reflux esophagitis stage II, moderate size hiatal hernia approximately 3 cm in size. There is mild to moderate gastritis; however, no stomach or antral ulcers as well as no Ike's ulcers. Pylorus and duodenum appeared normal with no distal obstructions as well as no duodenal ulcerations. DISPOSITION: The patient tolerated the procedure well. INDICATIONS: The patient is a 63-year-old female known to us. She has a history of coronary artery disease as well as myocardial infarction, underwent a cardiac catheterization and stent placement and is on anticoagulation for this. She was seen by her diet kitchen cook at [facility] and appeared anemic. Her hemoglobin was done and was found to be low at 5.3. She was given two units of blood, which increased appropriately. At that time, she had reported dark tarry stools and she underwent an EGD on 12/09/2018 and found to have a reflux esophagitis between stage II and III as well as a small hiatal hernia approximately 1.5 cm in size as well as a moderate gastritis and a formal ulcer of the antrum with an overlying fibrin clot, no active bleeding. The ulcer was small and approximately 4 mm in size. Biopsies were negative for malignancy as well as negative for H. pylori. She was found to have Bocanegra's esophagus as well. She was started on Protonix and Carafate as well as iron. She also underwent a colonoscopy on 01/11/2019 and she was found to have mild chronic stage between 1 and 2 external and internal hemorrhoids; however, no active bleeding. There is also an early stage rectal prolapse; however, no active bleeding. The remainder of the rectum and colon were normal. She was seen in the Emergency Department at [facility] for shortness of breath, weakness as well as fatigue and dark tarry stools again. She states that this had been going on for approximately one week. She had labs drawn, which was low at 4.9 and did receive 2 units of blood and her hemoglobin did come to 8.1. She again is on anticoagulation with aspirin and Plavix. DESCRIPTION OF PROCEDURE: The patient was brought to the endoscopy suite, laid in left lateral decubitus position. After adequate IV pain and sedative medications and conscious sedation anesthesia, the mouthpiece was applied. The endoscope was then placed in the mouth visualizing the pharynx and hypopharyngeal region. Vocal cords, epiglottis and vallecula identified and appeared to be normal. The endoscope was then gently intubated in the esophageal opening and esophagus insufflated. The endoscope was then advanced through the first, second and third portion of the esophagus at the level of GE junction, a reflux esophagitis stage II identified. GE junction was also intrathoracic consistent with a hiatal hernia. There was no Ike ulcer identified within the distal portion of the stomach. A biopsy was taken at the GE junction with forceps with visualization of good hemostasis. The endoscope was then advanced in the stomach and endoscope retroflexed, visualizing a hiatal hernia with now considered moderate in size, approximately 3 cm. There was a mild to moderate gastritis of the antrum. There were no formal ulcers, polyps or any neoplasms as well as no active bleeding sources. The pylorus and duodenum appeared normal as well with no duodenal ulcerations or any bleeding. A biopsy was taken of the antrum again with forceps. The endoscope was then slowly withdrawn while taking a second look and suctioning of residual air with no additional findings. The patient tolerated the procedure well. More than likely she does have mild intermittent bleeding from gastritis; however, at this time, there are no lesions of the stomach or esophagus as well as no active bleeding source identified. We will recommend continued medical management with Protonix as well as Carafate. She also needs to avoid caffeinated beverages, spicy, greasy and acidic foods. There is a remote chance that this is a small intestinal bleed and this could potentially be evaluated with a tagged RBC scan if significant bleeding is occurring; however, at this time, this does not. A capsule endoscopy is another option; however, we do not have this service at this institution and we would have to refer her. Job ID: [id number] DocumentID: [id number] Dictated Date: 03/23/2019 11:57:19 Manufacturing Controls Engineer Date: 03/23/2019 16:33:23 Dictated By: NED SANCHEZ MD
[2019-03-23 19:30] VITALS: BP 149/63
[2019-03-24 00:50] VITALS: BP 102/55
[2019-03-24 04:00] VITALS: BP 171/61
[2019-03-24 06:22] LABS: BASOPHILS % (AUTO) 0 % (0-10); EOSINOPHILS # (AUTO) 0.3 10^3/uL (0.0-0.3); EOSINOPHILS % (AUTO) 5 % (0-10); HEMATOCRIT 26 % (35-52); HEMOGLOBIN 7.6 G/DL (11.5-16.0); LYMPHOCYTES # (AUTO) 2.3 X 10^3 (1.0-4.0); LYMPHOCYTES % (AUTO) 33 % (12-44); MEAN CORPUSCULAR HEMOGLOBIN 24 PG (25-34); MEAN CORPUSCULAR HGB CONC 29 G/DL (32-36); MEAN CORPUSCULAR VOLUME 81 FL (80-99); MEAN PLATELET VOLUME 11.1 FL (7.4-10.4); MONOCYTES # (AUTO) 0.7 X 10^3 (0.0-1.0); MONOCYTES % (AUTO) 10 % (0-12); NEUTROPHILS # (AUTO) 3.7 X 10^3 (1.8-7.8); NEUTROPHILS % (AUTO) 53 % (42-75); PLATELET COUNT 229 10^3/uL (130-400); RED CELL DISTRIBUTION WIDTH 18.4 % (10.0-14.5); WHITE BLOOD COUNT 6.9 10^3/uL (4.3-11.0)
[2019-03-24] MEDS: SUCRALFATE 1 GM (CARAFATE) TAB PO SCH ×2 (06:31→11:11)
[2019-03-24] MEDS: PANTOPRAZOLE 40 MG (PROTONIX) TAB PO SCH (06:31)
[2019-03-24 06:35] LABS: ALBUMIN 3.6 GM/DL (3.2-4.5); BILIRUBIN,TOTAL 0.6 MG/DL (0.1-1.0); CALCIUM 8.5 MG/DL (8.5-10.1); CREATININE SERUM 1.03 MG/DL (0.60-1.30); POTASSIUM 3.9 MMOL/L (3.6-5.0); TOTAL PROTEIN 6.1 GM/DL (6.4-8.2)
[2019-03-24 08:00] VITALS: BP 144/73
[2019-03-24] MEDS: FAMOTIDINE 20MG/2ML IV (PEPCID) IVP SCH (09:31)
[2019-03-24] MEDS: LOSARTAN 100 MG (COZAAR) TABLET PO SCH (09:31)
[2019-03-24] MEDS: CARVEDILOL 3.125 MG (COREG) TABLET PO SCH (09:31)
[2019-03-24] MEDS: ISOSORBIDE MONONITRATE 30 MG (IMDUR) TAB PO SCH (09:31)
[2019-03-24] MEDS ORDERED: FERR325T18 PO (10:29)
[2019-03-24] MEDS ORDERED: SUCR1TAB PO (10:29)
--- NOTE | 2019-03-24 10:32 | Discharge Summary-Hospitalist ---
Diagnosis/Chief Complaint Date of Admission Mar 21, 2019 at 17:15 Date of Discharge Discharge Date: March 24, 2019 Admission Diagnosis Assessment: Severe anemia with symptoms requiring 2 units of blood transfusions Plan: Resume home meds EGD by Dr. Sanchez tomorrow Clear liquids Monitor closely Discharge Diagnosis (1) Symptomatic anemia Status: Acute (2) Peptic ulcer Status: Chronic (3) Blood loss anemia Status: Acute (4) CAD (coronary artery disease) Status: Chronic (5) COPD (chronic obstructive pulmonary disease) Status: Chronic (6) PAD (peripheral artery disease) Status: Chronic (7) CHF (congestive heart failure) Status: Chronic (8) HTN (hypertension) Status: Chronic (9) Transfusion of blood during current hospitalisation Status: Acute Discharge Summary Discharge Physical Exam Allergies: Coded Allergies: No Known Drug Allergies (Unverified , 01/10/19) Vitals & I&Os Vital Signs Date Time Temp Pulse Resp B/P (MAP) Pulse Ox O2 Delivery O2 Flow Rate FiO2 03/24/19 08:00 Room Air 03/24/19 08:00 98.4 60 18 144/73 (96) 95 2.00 General Appearance: No Apparent Distress, WD/WN, Chronically ill Respiratory: Chest Non Tender, Lungs Clear, Normal Breath Sounds, No Accessory Muscle Use, No Respiratory Distress Cardiovascular: Regular Rate, Rhythm, No Edema, No Gallop, No JVD, No Murmur, Normal Peripheral Pulses Neurologic/Psychiatric: Alert, Oriented x3, No Motor/Sensory Deficits, Normal Mood/Affect Hospital Course Was the Problem List Reviewed?: Yes Hospital course: Patient had an uneventful hospital course. She was admitted for symptomatic anemia and required 2 units of blood transfusions. EGD was performed by Dr. Sanchez. Gastritis and esophageal irritation noted. Patient placed on Carafate. Patient will be maintained on her proton pump inhibitor. Hematology consultation was appreciated also. Patient will resume iron therapy. Labs (last 24 hrs) Laboratory Tests 03/24/19 05:50: White Blood Count 6.9, Red Blood Count 3.21L, Hemoglobin 7.6L, Hematocrit 26L, Mean Corpuscular Volume 81, Mean Corpuscular Hemoglobin 24L, Mean Corpuscular Hemoglobin Concent 29L, Red Cell Distribution Width 18.4H, Platelet Count 229, Mean Platelet Volume 11.1H, Neutrophils (%) (Auto) 53, Lymphocytes (%) (Auto) 33 , Monocytes (%) (Auto) 10, Eosinophils (%) (Auto) 5, Basophils (%) (Auto) 0, Neutrophils # (Auto) 3.7, Lymphocytes # (Auto) 2.3, Monocytes # (Auto) 0.7, Eosinophils # (Auto) 0.3, Basophils # (Auto) 0.0, Sodium Level 137, Potassium Level 3.9, Chloride Level 110H, Carbon Dioxide Level 17L, Anion Gap 10, Blood Urea Nitrogen 16, Creatinine 1.03, Estimat Glomerular Filtration Rate 54, BUN/ Creatinine Ratio 16, Glucose Level 91, Calcium Level 8.5, Corrected Calcium 8.8 , Total Bilirubin 0.6, Aspartate Amino Transf (AST/SGOT) 21, Alanine Aminotransferase (ALT/SGPT) 15, Alkaline Phosphatase 96, Total Protein 6.1L, Albumin 3.6 Microbiology 03/22/19 MRSA Screen - Final, Complete MRSA not isolated Patient resulted labs reviewed. Pending Labs Laboratory Tests 03/24/19 05:50: White Blood Count 6.9, Red Blood Count 3.21, Hemoglobin 7.6, Hematocrit 26, Mean Corpuscular Volume 81, Mean Corpuscular Hemoglobin 24, Mean Corpuscular Hemoglobin Concent 29, Red Cell Distribution Width 18.4, Platelet Count 229, Mean Platelet Volume 11.1, Neutrophils (%) (Auto) 53, Lymphocytes (%) (Auto) 33 , Monocytes (%) (Auto) 10, Eosinophils (%) (Auto) 5, Basophils (%) (Auto) 0, Neutrophils # (Auto) 3.7, Lymphocytes # (Auto) 2.3, Monocytes # (Auto) 0.7, Eosinophils # (Auto) 0.3, Basophils # (Auto) 0.0, Sodium Level 137, Potassium Level 3.9, Chloride Level 110, Carbon Dioxide Level 17, Anion Gap 10, Blood Urea Nitrogen 16, Creatinine 1.03, Estimat Glomerular Filtration Rate 54, BUN/ Creatinine Ratio 16, Glucose Level 91, Calcium Level 8.5, Corrected Calcium 8.8 , Total Bilirubin 0.6, Aspartate Amino Transf (AST/SGOT) 21, Alanine Aminotransferase (ALT/SGPT) 15, Alkaline Phosphatase 96, Total Protein 6.1, Albumin 3.6 Discussion & Recommendations Discharge Planning: <30 minutes discharge planning Discharge Home Medications: Active Scripts Active Sucralfate 1 Gm Tablet 1 Gm PO ACHS Ferrous Sulfate 325 Mg Tablet 325 Mg PO Q48H LAST FILLED #15 01-23-19 Reported Calcium 500 + D Tablet (Calcium Carbonate/Vitamin D3) 1 Each Tablet 1 Tab PO DAILY Acetaminophen Extra Strength (Acetaminophen) 500 Mg Tablet 1,000 Mg PO Q4H PRN Proventil Hfa (Albuterol Sulfate) 6.7 Gm Hfa.aer.ad 2 Puff INH Q4H PRN Protonix (Pantoprazole Sodium) 40 Mg Tablet.dr 40 Mg PO DAILY Mucinex (Guaifenesin) 1,200 Mg Tab.er.12h 1,200 Mg PO BID PRN Senokot (Sennosides) 8.6 Mg Tablet 8.6 Mg PO DAILY PRN Daily Vitamin Formula (Multivitamin) 1 Each Tablet 1 Tab PO DAILY Vitamin C (Ascorbate Calcium) 500 Mg Tablet 500 Mg PO DAILY Zinc (Zinc Gluconate) 50 Mg Tablet 50 Mg PO DAILY Aspirin EC (Aspirin) 81 Mg Tablet.dr 81 Mg PO DAILY Nitroglycerin 0.4 Mg Tab.subl 0.4 Mg SL UD PRN Carvedilol 3.125 Mg Tablet 3.125 Mg PO BID Losartan Potassium 100 Mg Tablet 100 Mg PO DAILY Isosorbide Mononitrate ER (Isosorbide Mononitrate) 30 Mg Tab.er.24h 30 Mg PO DAILY Atorvastatin Calcium 80 Mg Tablet 80 Mg PO DAILY Instructions to patient/family Please see electronic discharge instructions given to patient. Clinical Quality Measures DVT/VTE Risk/Contraindication: Risk Factor Score Per Nursin RFS Level Per Nursing on Admit: 4+=Very High Problem Qualifiers (1) CAD (coronary artery disease): Coronary Disease-Associated Artery/Lesion type: [place] artery [place] vs. transplanted heart: [place] heart Associated angina: without angina Qualified Codes: I25.10 - Atherosclerotic heart disease of [place] coronary artery without angina pectoris (2) COPD (chronic obstructive pulmonary disease): COPD type: unspecified COPD Qualified Codes: J44.9 - Chronic obstructive pulmonary disease, unspecified (3) CHF (congestive heart failure): Heart failure type: unspecified Heart failure chronicity: unspecified Qualified Codes: I50.9 - Heart failure, unspecified (4) HTN (hypertension): Hypertension type: essential hypertension Qualified Codes: I10 - Essential ( primary) hypertension GLENROY MAXWELL DO March 24, 2019 10:32
[2019-03-24 11:35] VITALS: BP 144/73
== END 2019-03-24 11:35 | disposition home or self-care (01) | DRG 378 ==
LOC: EDUNIT# 17:03 → ER FS 17:06 → 4TH 17:15
PROVIDERS: ADMIT Internal Medicine; ATTEND Internal Medicine
PROC: 0DB78ZX Excision of Stomach, Pylorus, Via Natural or Artificial Opening Endoscopic, Diagnostic (ICD-10-PCS; 2019-03-23)
PROC: 0DB48ZX Excision of Esophagogastric Junction, Via Natural or Artificial Opening Endoscopic, Diagnostic (ICD-10-PCS; principal; 2019-03-23 14:15)
DX: K29.71 Gastritis, unspecified, with bleeding (principal); K27.4 Chronic or unspecified peptic ulcer, site unspecified, with hemorrhage; D62 Acute posthemorrhagic anemia; I25.10 Atherosclerotic heart disease of native coronary artery without angina pectoris; J44.9 Chronic obstructive pulmonary disease, unspecified; I11.0 Hypertensive heart disease with heart failure; I50.9 Heart failure, unspecified; I73.9 Peripheral vascular disease, unspecified; K22.70 Barrett's esophagus without dysplasia; K21.0 Gastro-esophageal reflux disease with esophagitis; K44.9 Diaphragmatic hernia without obstruction or gangrene; K64.1 Second degree hemorrhoids; K62.3 Rectal prolapse; K70.30 Alcoholic cirrhosis of liver without ascites; I25.2 Old myocardial infarction; E78.00 Pure hypercholesterolemia, unspecified; G43.909 Migraine, unspecified, not intractable, without status migrainosus; M17.0 Bilateral primary osteoarthritis of knee; M47.9 Spondylosis, unspecified; Z79.82 Long term (current) use of aspirin; Z79.02 Long term (current) use of antithrombotics/antiplatelets; Z87.891 Personal history of nicotine dependence; Z95.5 Presence of coronary angioplasty implant and graft; Z86.010 Personal history of colon polyps
CPT/HCPCS: 36415; 80048; 80053; 83690; 84484; 85025; 85610; 86850; 86900; 86901; 86920; 87081; 88305; 93005; 94760; 96374; 96375

== ENCOUNTER 2019-04-26 07:23 | Inpatient (IN) | payer MEDICAID ==
[~2019-04-26] VITALS: Ht 162.6 cm; Wt 68.6 kg
[2019-04-26] VITALS (21 sets, daily range): BP systolic 137–171; BP diastolic 58–106
[~2019-04-26 07:23] MED LIST changes: +ACET-168 PO; +ALBU6.7H8 INH; +CALC-654 PO; +FERR325T18 PO; +PANT40TA2 PO; +SUCR1TAB PO
--- OUTSIDE RECORDS SUMMARY | 2019-04-26 07:31 | XMS REPORT | Continuity of Care Document ---
Author Organization Unknown Address Unknown Allergies Active Description Code Type Severity Reaction Onset Reported/Identified Relationship to Patient Clinical Status Yes No Known Drug Allergies [id number] Drug Allergy Unknown N/A 01/10/2019 Medications There is no data. Problems Date Dx Coded Attending Type Code Diagnosis Diagnosed By 12/11/2018 DEON CURIEL MD, Ot D64.9 ANEMIA, UNSPECIFIED 12/11/2018 DEON CURIEL MD, Ot E78.00 PURE HYPERCHOLESTEROLEMIA, UNSPECIFIED 12/11/2018 DEON CURIEL MD, Ot F10.21 ALCOHOL DEPENDENCE, IN REMISSION 12/11/2018 DEON CURIEL MD Ot I10 ESSENTIAL (PRIMARY) HYPERTENSION 12/11/2018 DEON CURIEL MD Ot I25.10 ATHSCL HEART DISEASE OF [place] CORONARY 12/11/2018 DEON CURIEL MD, Ot I25.2 OLD MYOCARDIAL INFARCTION 12/11/2018 DEON CURIEL MD Ot I73.9 PERIPHERAL VASCULAR DISEASE, UNSPECIFIED 12/11/2018 DEON CURIEL MD Ot J44.9 CHRONIC OBSTRUCTIVE PULMONARY DISEASE, U 12/11/2018 DEON CURIEL MD Ot K21.0 GASTRO-ESOPHAGEAL REFLUX DISEASE WITH ES 12/11/2018 DEON CURIEL MD Ot K25.4 CHRONIC OR UNSPECIFIED GASTRIC ULCER WIT 12/11/2018 DEON CURIEL MD Ot K29.71 GASTRITIS, UNSPECIFIED, WITH BLEEDING 12/11/2018 DEON CURIEL MD Ot K44.9 DIAPHRAGMATIC HERNIA WITHOUT OBSTRUCTION 12/11/2018 DEON CURIEL MD, Ot K70.30 ALCOHOLIC CIRRHOSIS OF LIVER WITHOUT ASC 12/11/2018 DEON CURIEL MD Ot Z79.82 [facility] (CURRENT) USE OF ASPIRIN 12/11/2018 DEON CURIEL MD, Ot Z79.899 OTHER PHOSPHORIC ACID OPERATOR (CURRENT) DRUG THERAPY 12/11/2018 DEON CURIEL MD, Ot Z87.891 PERSONAL HISTORY OF NICOTINE DEPENDENCE 12/11/2018 DEON CURIEL MD Ot Z95.5 PRESENCE OF CORONARY ANGIOPLASTY IMPLANT 12/11/2018 DEON CURIEL MD, Ot D64.9 ANEMIA, UNSPECIFIED 12/11/2018 DEON CURIEL MD, Ot E78.00 PURE HYPERCHOLESTEROLEMIA, UNSPECIFIED 12/11/2018 DEON CURIEL MD Ot F10.21 ALCOHOL DEPENDENCE, IN REMISSION 12/11/2018 DEON CURIEL MD Ot I10 ESSENTIAL (PRIMARY) HYPERTENSION 12/11/2018 DEON CURIEL MD Ot I25.10 ATHSCL HEART DISEASE OF [place] CORONARY 12/11/2018 DEON CURIEL MD, Ot I25.2 OLD MYOCARDIAL INFARCTION 12/11/2018 DEON CURIEL MD Ot I73.9 PERIPHERAL VASCULAR DISEASE, UNSPECIFIED 12/11/2018 DEON CURIEL MD Ot J44.9 CHRONIC OBSTRUCTIVE PULMONARY DISEASE, U 12/11/2018 DEON CURIEL MD Ot K21.0 GASTRO-ESOPHAGEAL REFLUX DISEASE WITH ES 12/11/2018 DEON CURIEL MD Ot K21.9 GASTRO-ESOPHAGEAL REFLUX DISEASE WITHOUT 12/11/2018 DEON CURIEL MD Ot K25.4 CHRONIC OR UNSPECIFIED GASTRIC ULCER WIT 12/11/2018 DEON CURIEL MD Ot K29.71 GASTRITIS, UNSPECIFIED, WITH BLEEDING 12/11/2018 DEON CURIEL MD Ot K44.9 DIAPHRAGMATIC HERNIA WITHOUT OBSTRUCTION 12/11/2018 DEON CURIEL MD Ot K70.30 ALCOHOLIC CIRRHOSIS OF LIVER WITHOUT ASC 12/11/2018 DEON CURIEL MD Ot Z87.891 PERSONAL HISTORY OF NICOTINE DEPENDENCE 12/11/2018 DEON CURIEL MD Ot Z95.5 PRESENCE OF CORONARY ANGIOPLASTY IMPLANT 01/11/2019 NED HICKMAN MD, Ot Z01.818 ENCOUNTER FOR OTHER PREPROCEDURAL EXAMIN 01/12/2019 NED HICKMAN MD, Ot D50.9 IRON DEFICIENCY ANEMIA, UNSPECIFIED 01/12/2019 NED HICKMAN MD, Ot E78.00 PURE HYPERCHOLESTEROLEMIA, UNSPECIFIED 01/12/2019 NED HICKMAN MD Ot I10 ESSENTIAL (PRIMARY) HYPERTENSION 01/12/2019 NED HICKMAN MD, Ot I25.10 ATHSCL HEART DISEASE OF [place] CORONARY 01/12/2019 NED HICKMAN MD, Ot I25.2 OLD MYOCARDIAL INFARCTION 01/12/2019 NED HICKMAN MD, Ot I73.9 PERIPHERAL VASCULAR DISEASE, UNSPECIFIED 01/12/2019 NED HICKMAN MD, Ot K21.0 GASTRO-ESOPHAGEAL REFLUX DISEASE WITH ES 01/12/2019 NED HICKMAN MD, Ot K25.9 GASTRIC ULCER, UNSP ACUTE OR CHRONIC, 01/12/2019 NED HICKMAN MD, Ot K29.70 GASTRITIS, UNSPECIFIED, WITHOUT BLEEDING 01/12/2019 NED HICKMAN MD, Ot K44.9 DIAPHRAGMATIC HERNIA WITHOUT OBSTRUCTION 01/12/2019 NED HICKMAN MD, Ot K62.3 RECTAL PROLAPSE 01/12/2019 NED HICKMAN MD, Ot K64.1 SECOND DEGREE HEMORRHOIDS 01/12/2019 NED HICKMAN MD, Ot K70.30 ALCOHOLIC CIRRHOSIS OF LIVER WITHOUT ASC 01/12/2019 NED HICKMAN MD, Ot Z12.11 ENCOUNTER FOR SCREENING FOR MALIGNANT NE 01/12/2019 NED HICKMAN MD, Ot Z79.02 PHOSPHORIC ACID OPERATOR (CURRENT) USE OF 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 01/12/2019 NED HICKMAN MD, Ot Z79.82 [facility] (CURRENT) USE OF ASPIRIN 01/12/2019 NED HICKMAN MD, Ot Z79.899 OTHER PHOSPHORIC ACID OPERATOR (CURRENT) DRUG THERAPY 01/12/2019 NED HICKMAN MD, Ot Z87.891 PERSONAL HISTORY OF NICOTINE DEPENDENCE 01/13/2019 NED HICKMAN MD Ot D50.9 IRON DEFICIENCY ANEMIA, UNSPECIFIED 01/13/2019 NED HICKMAN MD, Ot E78.00 PURE HYPERCHOLESTEROLEMIA, UNSPECIFIED 01/13/2019 NED HICKMAN MD Ot I10 ESSENTIAL (PRIMARY) HYPERTENSION 01/13/2019 NED HICKMAN MD, Ot I25.10 ATHSCL HEART DISEASE OF [place] CORONARY 01/13/2019 NED HICKMAN MD, Ot I25.2 OLD MYOCARDIAL INFARCTION 01/13/2019 NED HICKMAN MD, Ot I73.9 PERIPHERAL VASCULAR DISEASE, UNSPECIFIED 01/13/2019 NED HICKMAN MD, Ot K21.0 GASTRO-ESOPHAGEAL REFLUX DISEASE WITH ES 01/13/2019 KIDO MD, TAKAAKI Ot K25.9 GASTRIC ULCER, UNSP ACUTE OR CHRONIC, 01/13/2019 NED HICKMAN MD, Ot K29.70 GASTRITIS, UNSPECIFIED, WITHOUT BLEEDING 01/13/2019 NED HICKMAN MD, Ot K44.9 DIAPHRAGMATIC HERNIA WITHOUT OBSTRUCTION 01/13/2019 NED HICKMAN MD, Ot K62.3 RECTAL PROLAPSE 01/13/2019 NED HICKMAN MD, Ot K64.1 SECOND DEGREE HEMORRHOIDS 01/13/2019 NED HICKMAN MD, Ot K70.30 ALCOHOLIC CIRRHOSIS OF LIVER WITHOUT ASC 01/13/2019 NED HICKMAN MD, Ot Z12.11 ENCOUNTER FOR SCREENING FOR MALIGNANT NE 01/13/2019 NED HICKMAN MD, Ot Z79.02 PHOSPHORIC ACID OPERATOR (CURRENT) USE OF 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 01/13/2019 NED HICKMAN MD, Ot Z79.82 PHOSPHORIC ACID OPERATOR (CURRENT) USE OF ASPIRIN 01/13/2019 NED HICKMAN MD, Ot Z79.899 OTHER PHOSPHORIC ACID OPERATOR (CURRENT) DRUG THERAPY 01/13/2019 NED HICKMAN MD, Ot Z87.891 PERSONAL HISTORY OF NICOTINE DEPENDENCE 01/19/2019 NED HICKMAN MD, Ot D50.9 IRON DEFICIENCY ANEMIA, UNSPECIFIED 01/19/2019 NED HICKMAN MD, Ot E78.00 PURE HYPERCHOLESTEROLEMIA, UNSPECIFIED 01/19/2019 NED HICKMAN MD Ot I10 ESSENTIAL (PRIMARY) HYPERTENSION 01/19/2019 NED HICKMAN MD, Ot I25.10 ATHSCL HEART DISEASE OF [place] CORONARY 01/19/2019 NED HICKMAN MD, Ot I25.2 OLD MYOCARDIAL INFARCTION 01/19/2019 NED HICKMAN MD, Ot I73.9 PERIPHERAL VASCULAR DISEASE, UNSPECIFIED 01/19/2019 NED HICKMAN MD, Ot K21.0 GASTRO-ESOPHAGEAL REFLUX DISEASE WITH ES 01/19/2019 NED HICKMAN MD, Ot K25.9 GASTRIC ULCER, UNSP ACUTE OR CHRONIC, 01/19/2019 NED HICKMAN MD, Ot K29.70 GASTRITIS, UNSPECIFIED, WITHOUT BLEEDING 01/19/2019 NED HICKMAN MD, Ot K44.9 DIAPHRAGMATIC HERNIA WITHOUT OBSTRUCTION 01/19/2019 NED HICKMAN MD, Ot K62.3 RECTAL PROLAPSE 01/19/2019 NED HICKMAN MD, Ot K64.1 SECOND DEGREE HEMORRHOIDS 01/19/2019 NED HICKMAN MD, Ot K70.30 ALCOHOLIC CIRRHOSIS OF LIVER WITHOUT ASC 01/19/2019 NED HICKMAN MD, Ot Z12.11 ENCOUNTER FOR SCREENING FOR MALIGNANT NE 01/19/2019 NED HICKMAN MD, Ot Z79.02 PHOSPHORIC ACID OPERATOR (CURRENT) USE OF 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 01/19/2019 NED HICKMAN MD, Ot Z79.82 [facility] (CURRENT) USE OF ASPIRIN 01/19/2019 NED HICKMAN MD, Ot Z79.899 OTHER PHOSPHORIC ACID OPERATOR (CURRENT) DRUG THERAPY 01/19/2019 NED HICKMAN MD, Ot Z87.891 PERSONAL HISTORY OF NICOTINE DEPENDENCE 01/19/2019 NED HICKMAN MD, Ot D50.9 IRON DEFICIENCY ANEMIA, UNSPECIFIED 01/19/2019 NED HICKMAN MD, Ot E78.00 PURE HYPERCHOLESTEROLEMIA, UNSPECIFIED 01/19/2019 NED HICKMAN MD, Ot I10 ESSENTIAL (PRIMARY) HYPERTENSION 01/19/2019 NED HICKMAN MD, Ot I25.10 ATHSCL HEART DISEASE OF [place] CORONARY 01/19/2019 NED HICKMAN MD, Ot I25.2 OLD MYOCARDIAL INFARCTION 01/19/2019 NED HICKMAN MD, Ot I73.9 PERIPHERAL VASCULAR DISEASE, UNSPECIFIED 01/19/2019 NED HICKMAN MD, Ot K21.0 GASTRO-ESOPHAGEAL REFLUX DISEASE WITH ES 01/19/2019 NED HICKMAN MD, Ot K25.9 GASTRIC ULCER, UNSP ACUTE OR CHRONIC, 01/19/2019 NED HICKMAN MD, Ot K29.70 GASTRITIS, UNSPECIFIED, WITHOUT BLEEDING 01/19/2019 NED HICKMAN MD, Ot K44.9 DIAPHRAGMATIC HERNIA WITHOUT OBSTRUCTION 01/19/2019 NED HICKMAN MD, Ot K62.3 RECTAL PROLAPSE 01/19/2019 NED HICKMAN MD, Ot K64.1 SECOND DEGREE HEMORRHOIDS 01/19/2019 NED HICKMAN MD, Ot K70.30 ALCOHOLIC CIRRHOSIS OF LIVER WITHOUT ASC 01/19/2019 NED HICKMAN MD, Ot Z12.11 ENCOUNTER FOR SCREENING FOR MALIGNANT NE 01/19/2019 NED HICKMAN MD, Ot Z79.02 PHOSPHORIC ACID OPERATOR (CURRENT) USE OF 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 01/19/2019 NED HICKMAN MD, Ot Z79.82 PHOSPHORIC ACID OPERATOR (CURRENT) USE OF ASPIRIN 01/19/2019 NED HICKMAN MD, Ot Z79.899 OTHER PHOSPHORIC ACID OPERATOR (CURRENT) DRUG THERAPY 01/19/2019 NED HICKMAN MD, Ot Z87.891 PERSONAL HISTORY OF NICOTINE DEPENDENCE 01/19/2019 NED HICKMAN MD, Ot D50.9 IRON DEFICIENCY ANEMIA, UNSPECIFIED 01/19/2019 NED HICKMAN MD, Ot E78.00 PURE HYPERCHOLESTEROLEMIA, UNSPECIFIED 01/19/2019 NED HICKMAN MD, Ot I10 ESSENTIAL (PRIMARY) HYPERTENSION 01/19/2019 NED HICKMAN MD, Ot I25.10 ATHSCL HEART DISEASE OF [place] CORONARY 01/19/2019 NED HICKMAN MD, Ot I25.2 OLD MYOCARDIAL INFARCTION 01/19/2019 NED HICKMAN MD, Ot I73.9 PERIPHERAL VASCULAR DISEASE, UNSPECIFIED 01/19/2019 NED HICKMAN MD, Ot K21.0 GASTRO-ESOPHAGEAL REFLUX DISEASE WITH ES 01/19/2019 NED HICKMAN MD, Ot 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 01/19/2019 NED HICKMAN MD, Ot K25.9 GASTRIC ULCER, UNSP ACUTE OR CHRONIC, 01/19/2019 NED HICKMAN MD, Ot K29.70 GASTRITIS, UNSPECIFIED, WITHOUT BLEEDING 01/19/2019 NED HICKMAN MD, Ot K44.9 DIAPHRAGMATIC HERNIA WITHOUT OBSTRUCTION 01/19/2019 NED HICKMAN MD Ot K62.1 RECTAL POLYP 01/19/2019 NED HICKMAN MD, Ot K62.3 RECTAL PROLAPSE 01/19/2019 NED HICKMAN MD, Ot K64.1 SECOND DEGREE HEMORRHOIDS 01/19/2019 NED HICKMAN MD, Ot K70.30 ALCOHOLIC CIRRHOSIS OF LIVER WITHOUT ASC 01/19/2019 NED HICKMAN MD, Ot Z12.11 ENCOUNTER FOR SCREENING FOR MALIGNANT NE 01/19/2019 NED HICKMAN MD, Ot Z79.02 PHOSPHORIC ACID OPERATOR (CURRENT) USE OF 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 01/19/2019 NED HICKMAN MD, Ot Z79.82 [facility] (CURRENT) USE OF ASPIRIN 01/19/2019 NED HICKMAN MD, Ot Z79.899 OTHER [facility] (CURRENT) DRUG THERAPY 01/19/2019 NED HICKMAN MD, Ot Z87.891 PERSONAL HISTORY OF NICOTINE DEPENDENCE 01/27/2019 NED HICKMAN MD, Ot D50.9 IRON DEFICIENCY ANEMIA, UNSPECIFIED 01/27/2019 NED HICKMAN MD, Ot E78.00 PURE HYPERCHOLESTEROLEMIA, UNSPECIFIED 01/27/2019 NED HICKMAN MD, Ot I10 ESSENTIAL (PRIMARY) HYPERTENSION 01/27/2019 NED HICKMAN MD, Ot I25.10 ATHSCL HEART DISEASE OF [place] CORONARY 01/27/2019 NED HICKMAN MD, Ot I25.2 OLD MYOCARDIAL INFARCTION 01/27/2019 NED HICKMAN MD, Ot I73.9 PERIPHERAL VASCULAR DISEASE, UNSPECIFIED 01/27/2019 NED HICKMAN MD, Ot K21.0 GASTRO-ESOPHAGEAL REFLUX DISEASE WITH ES 01/27/2019 NED HICKMAN MD, Ot 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 01/27/2019 NED HICKMAN MD, Ot K25.9 GASTRIC ULCER, UNSP ACUTE OR CHRONIC, 01/27/2019 NED HICKMAN MD, Ot K29.70 GASTRITIS, UNSPECIFIED, WITHOUT BLEEDING 01/27/2019 NED HICKMAN MD, Ot K44.9 DIAPHRAGMATIC HERNIA WITHOUT OBSTRUCTION 01/27/2019 NED HICKMAN MD, Ot K62.1 RECTAL POLYP 01/27/2019 NED HICKMAN MD, Ot K62.3 RECTAL PROLAPSE 01/27/2019 NED HICKMAN MD, Ot K64.1 SECOND DEGREE HEMORRHOIDS 01/27/2019 NED HICKMAN MD, Ot K70.30 ALCOHOLIC CIRRHOSIS OF LIVER WITHOUT ASC 01/27/2019 NED HICKMAN MD, Ot Z79.02 PHOSPHORIC ACID OPERATOR (CURRENT) USE OF 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 01/27/2019 NED HICKMAN MD, Ot Z79.82 PHOSPHORIC ACID OPERATOR (CURRENT) USE OF ASPIRIN 01/27/2019 NED HICKMAN MD, Ot Z79.899 OTHER [facility] (CURRENT) DRUG THERAPY 01/27/2019 NED HICKMAN MD, Ot Z87.891 PERSONAL HISTORY OF NICOTINE DEPENDENCE 03/24/2019 DEON CURIEL MD Ot D62 ACUTE POSTHEMORRHAGIC ANEMIA 03/24/2019 DEON CURIEL MD Ot E78.00 PURE HYPERCHOLESTEROLEMIA, UNSPECIFIED 03/24/2019 DEON CURIEL MD Ot G43.909 MIGRAINE, UNSP, NOT INTRACTABLE, WITHOUT 03/24/2019 DEON CURIEL MD Ot I11.0 HYPERTENSIVE HEART DISEASE WITH HEART FA 03/24/2019 DEON CURIEL MD Ot I25.10 ATHSCL HEART DISEASE OF [place] CORONARY 03/24/2019 DEON CURIEL MD, Ot I25.2 OLD MYOCARDIAL INFARCTION 03/24/2019 DEON CURIEL MD Ot I50.9 HEART FAILURE, UNSPECIFIED 03/24/2019 DEON CURIEL MD Ot I73.9 PERIPHERAL VASCULAR DISEASE, UNSPECIFIED 03/24/2019 DEON CURIEL MD, Ot J44.9 CHRONIC OBSTRUCTIVE PULMONARY DISEASE, U 03/24/2019 DEON CURIEL MD Ot K21.0 GASTRO-ESOPHAGEAL REFLUX DISEASE WITH ES 03/24/2019 DEON CURIEL MD Ot 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 03/24/2019 DEON CURIEL MD Ot K27.4 CHRONIC OR UNSP PEPTIC ULCER, SITE UNSP, 03/24/2019 DEON CURIEL MD Ot K29.71 GASTRITIS, UNSPECIFIED, WITH BLEEDING 03/24/2019 DEON CURIEL MD Ot K44.9 DIAPHRAGMATIC HERNIA WITHOUT OBSTRUCTION 03/24/2019 DEON CURIEL MD Ot K62.3 RECTAL PROLAPSE 03/24/2019 DEON CURIEL MD Ot K64.1 SECOND DEGREE HEMORRHOIDS 03/24/2019 DEON CURIEL MD Ot K70.30 ALCOHOLIC CIRRHOSIS OF LIVER WITHOUT ASC 03/24/2019 DEON CURIEL MD Ot M17.0 BILATERAL PRIMARY OSTEOARTHRITIS OF KNEE 03/24/2019 DEON CURIEL MD Ot M47.9 SPONDYLOSIS, UNSPECIFIED 03/24/2019 DEON CURIEL MD Ot Z79.02 [facility] (CURRENT) USE OF 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 03/24/2019 DEON CURIEL MD Ot Z79.82 PHOSPHORIC ACID OPERATOR (CURRENT) USE OF ASPIRIN 03/24/2019 DEON CURIEL MD Ot Z86.010 PERSONAL HISTORY OF COLONIC POLYPS 03/24/2019 DEON CURIEL MD Ot Z87.891 PERSONAL HISTORY OF NICOTINE DEPENDENCE 03/24/2019 DEON CURIEL MD Ot Z95.5 PRESENCE OF CORONARY ANGIOPLASTY IMPLANT 03/24/2019 DEON CURIEL MD Ot D62 ACUTE POSTHEMORRHAGIC ANEMIA 03/24/2019 DEON CURIEL MD Ot E78.00 PURE HYPERCHOLESTEROLEMIA, UNSPECIFIED 03/24/2019 DEON CURIEL MD Ot G43.909 MIGRAINE, UNSP, NOT INTRACTABLE, WITHOUT 03/24/2019 DEON CURIEL MD Ot I11.0 HYPERTENSIVE HEART DISEASE WITH HEART FA 03/24/2019 DEON CURIEL MD Ot I25.10 ATHSCL HEART DISEASE OF [place] CORONARY 03/24/2019 DEON CURIEL MD Ot I25.2 OLD MYOCARDIAL INFARCTION 03/24/2019 DEON CURIEL MD, Ot I50.9 HEART FAILURE, UNSPECIFIED 03/24/2019 DEON CURIEL MD Ot I73.9 PERIPHERAL VASCULAR DISEASE, UNSPECIFIED 03/24/2019 DEON CURIEL MD Ot J44.9 CHRONIC OBSTRUCTIVE PULMONARY DISEASE, U 03/24/2019 DEON CURIEL MD Ot K21.0 GASTRO-ESOPHAGEAL REFLUX DISEASE WITH ES 03/24/2019 DEON CURIEL MD Ot 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 03/24/2019 DEON CURIEL MD Ot K27.4 CHRONIC OR UNSP PEPTIC ULCER, SITE UNSP, 03/24/2019 DEON CURIEL MD Ot K29.70 GASTRITIS, UNSPECIFIED, WITHOUT BLEEDING 03/24/2019 DEON CURIEL MD Ot K29.71 GASTRITIS, UNSPECIFIED, WITH BLEEDING 03/24/2019 DEON CURIEL MD Ot K44.9 DIAPHRAGMATIC HERNIA WITHOUT OBSTRUCTION 03/24/2019 DEON CURIEL MD Ot K62.3 RECTAL PROLAPSE 03/24/2019 DEON CURIEL MD Ot K64.1 SECOND DEGREE HEMORRHOIDS 03/24/2019 DEON CURIEL MD Ot K70.30 ALCOHOLIC CIRRHOSIS OF LIVER WITHOUT ASC 03/24/2019 DEON CURIEL MD Ot M17.0 BILATERAL PRIMARY OSTEOARTHRITIS OF KNEE 03/24/2019 DEON CURIEL MD Ot M47.9 SPONDYLOSIS, UNSPECIFIED 03/24/2019 DEON CURIEL MD Ot Z79.02 [facility] (CURRENT) USE OF 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 03/24/2019 DEON CURIEL MD Ot Z79.82 PHOSPHORIC ACID OPERATOR (CURRENT) USE OF ASPIRIN 03/24/2019 DEON CURIEL MD Ot Z86.010 PERSONAL HISTORY OF COLONIC POLYPS 03/24/2019 DEON CURIEL MD Ot Z87.891 PERSONAL HISTORY OF NICOTINE DEPENDENCE 03/24/2019 DEON CURIEL MD Ot Z95.5 PRESENCE OF CORONARY ANGIOPLASTY IMPLANT Procedures Code Description Performed By Performed On [id number] EXCISION OF ESOPHAGOGASTRIC JUNCTION, EN 12/09/2018 [id number] EXCISION OF STOMACH, PYLORUS, ENDO, DIAG 12/09/2018 [id number] EXCISION OF ESOPHAGOGASTRIC JUNCTION, EN 03/23/2019 [id number] EXCISION OF STOMACH, PYLORUS, ENDO, DIAG 03/23/2019 Results Test Result Range Complete blood count (CBC) with automated white blood cell (WBC) differential - 12/08/18 20:14 Blood leukocytes automated count (number/volume) 5.7 10*3/uL 4.3-11.0 Blood erythrocytes automated count (number/volume) 2.83 10*6/uL 4.35-5.85 Venous blood hemoglobin measurement (mass/volume) 5.6 g/dL 11.5-16.0 Blood hematocrit (volume fraction) 22 % 35-52 Automated erythrocyte mean corpuscular volume 78 [foz_us] 80-99 Automated erythrocyte mean corpuscular hemoglobin (mass per erythrocyte) 20 pg 25-34 Automated erythrocyte mean corpuscular hemoglobin concentration measurement (mass/volume) 26 g/dL 32-36 Automated erythrocyte distribution width ratio 18.3 % 10.0- 14.5 Automated blood platelet count (count/volume) 278 10*3/uL 130-400 Automated blood platelet mean volume measurement 11.0 [foz_us] 7.4-10.4 Automated blood neutrophils/100 leukocytes 63 % 42-75 Automated blood lymphocytes/100 leukocytes 28 % 12-44 Blood monocytes/100 leukocytes 7 % 0-12 Automated blood eosinophils/100 leukocytes 1 % 0-10 Automated blood basophils/100 leukocytes 1 % 0-10 Blood neutrophils automated count (number/volume) 3.6 10*3 1.8-7.8 Blood lymphocytes automated count (number/volume) 1.6 10*3 1.0-4.0 Blood monocytes automated count (number/volume) 0.4 10*3 0.0- 1.0 Automated eosinophil count 0.1 10*3/uL 0.0-0.3 Automated blood basophil count (count/volume) 0.0 10*3/uL 0.0-0.1 PT panel in platelet poor plasma by coagulation assay - 12/08/18 20:14 Prothrombin time (PT) in platelet poor plasma by coagulation assay 14.8 s 12.2-14.7 INR in platelet poor plasma or blood by coagulation assay 1.2 0.8-1.4 Activated partial thromboplastin time (aPTT) in platelet poor plasma bycoagulation assay - 12/08/18 20:14 Activated partial thromboplastin time (aPTT) in platelet poor plasma bycoagulation assay 36 s 24-35 Comprehensive metabolic panel - 12/08/18 20:14 Serum or plasma sodium measurement (moles/volume) 142 mmol/L 135-145 Serum or plasma potassium measurement (moles/volume) 4.0 mmol/L 3.6-5.0 Serum or plasma chloride measurement (moles/volume) 114 mmol/L 98-107 Carbon dioxide 18 mmol/L 21-32 Serum or plasma anion gap determination (moles/volume) 10 mmol/L 5-14 Serum or plasma urea nitrogen measurement (mass/volume) 11 mg/dL 7-18 Serum or plasma creatinine measurement (mass/volume) 0.80 mg/dL 0.60-1.30 Serum or plasma urea nitrogen/creatinine mass ratio 14 NRG Serum or plasma creatinine measurement with calculation of estimated glomerular filtration rate > NRG Serum or plasma glucose measurement (mass/volume) 118 mg/dL 70-105 Serum or plasma calcium measurement (mass/volume) 9.1 mg/dL 8.5-10.1 Serum or plasma total bilirubin measurement (mass/volume) 0.5 mg/dL 0.1-1.0 Serum or plasma alkaline phosphatase measurement (enzymatic activity/volume) 82 U/L 40-136 Serum or plasma aspartate aminotransferase measurement (enzymatic activity/volume) 19 U/L 5-34 Serum or plasma alanine aminotransferase measurement (enzymatic activity/volume) 8 U/L 0-55 Serum or plasma protein measurement (mass/volume) 6.7 g/dL 6.4-8.2 Serum or plasma albumin measurement (mass/volume) 4.0 g/dL 3.2-4.5 CALCIUM CORRECTED 9.1 mg/dL 8.5-10.1 Magnesium - 12/08/18 20:14 Magnesium 2.1 mg/dL 1.8-2.4 Serum or plasma lithium measurement (moles/volume) - 12/08/18 20:14 BNP level 2158.1 pg/mL <100.0 RED CELLS LEUKO REDUCED AS1 - 12/08/18 20:14 RED CELLS LEUKO REDUCED AS1 NOT AVAILABLE NRG Blood type T Indirect antibody screen panel - 12/08/18 20:14 ABO+Rh group OP NRG Transfusion band number [id number] NRG Blood group antibody screen NEGATIVE NRG Serum or plasma troponin i.cardiac measurement (mass/volume) - 12/08/18 20:14 Serum or plasma troponin i.cardiac measurement (mass/volume) < ng/mL <0.028 ANEMIA ANALYZER - 12/08/18 21:16 Blood leukocytes automated count (number/volume) 5.2 10*3/uL 4.3-11.0 Blood erythrocytes automated count (number/volume) 2.69 10*6/uL 4.35-5.85 Venous blood hemoglobin measurement (mass/volume) 5.3 g/dL 11.5-16.0 Blood hematocrit (volume fraction) 21 % 35-52 Automated erythrocyte mean corpuscular volume 78 [foz_us] 80-99 Automated erythrocyte mean corpuscular hemoglobin (mass per erythrocyte) 20 pg 25-34 Automated erythrocyte mean corpuscular hemoglobin concentration measurement (mass/volume) 25 g/dL 32-36 Automated erythrocyte distribution width ratio 18.4 % 10.0- 14.5 Automated blood platelet count (count/volume) 283 10*3/uL 130-400 Automated blood platelet mean volume measurement 10.9 [foz_us] 7.4-10.4 Automated blood neutrophils/100 leukocytes 59 % 42-75 Automated blood lymphocytes/100 leukocytes 32 % 12-44 Blood monocytes/100 leukocytes 4 % NRG Automated blood eosinophils/100 leukocytes 1 % 0-10 Automated blood basophils/100 leukocytes 1 % 0-10 Blood neutrophils automated count (number/volume) 3.0 10*3 1.8-7.8 Blood lymphocytes automated count (number/volume) 1.6 10*3 1.0-4.0 Blood monocytes automated count (number/volume) 0.4 10*3 0.0- 1.0 Automated eosinophil count 0.1 10*3/uL 0.0-0.3 Automated blood basophil count (count/volume) 0.0 10*3/uL 0.0-0.1 Manual blood segmented neutrophils/100 leukocytes 61 % NRG Blood band neutrophils/100 leukocytes 1 % NRG Manual blood lymphocytes/100 leukocytes 32 % NRG Manual eosinophils/100 leukocytes in nose 1 % NRG Manual blood basophils/100 leukocytes 1 % NRG Blood polychromasia detection by light microscopy SLIGHT NRG Blood ovalocytes detection by light microscopy SLIGHT NRG Blood hypochromia detection by light microscopy MARKED NRG Blood microcytes detection by light microscopy SLIGHT NRG Blood reticulocytes count (number/volume) 69 10*9/L 24-90 Blood reticulocytes/100 erythrocytes 2.56 % 0.50-2.40 Serum or plasma ferritin measurement (mass/volume) - 12/08/18 21:16 Serum or plasma ferritin measurement (mass/volume) 18.9 L 20.0-177.0 Complete blood count (CBC) with automated white blood cell (WBC) differential - 12/09/18 06:00 Blood leukocytes automated count (number/volume) 6.3 10*3/uL 4.3-11.0 Blood erythrocytes automated count (number/volume) 3.55 10*6/uL 4.35-5.85 Venous blood hemoglobin measurement (mass/volume) 8.1 g/dL 11.5-16.0 Blood hematocrit (volume fraction) 28 % 35-52 Automated erythrocyte mean corpuscular volume 78 [foz_us] 80-99 Automated erythrocyte mean corpuscular hemoglobin (mass per erythrocyte) 23 pg 25-34 Automated erythrocyte mean corpuscular hemoglobin concentration measurement (mass/volume) 29 g/dL 32-36 Automated erythrocyte distribution width ratio 17.4 % 10.0- 14.5 Automated blood platelet count (count/volume) 255 10*3/uL 130-400 Automated blood platelet mean volume measurement 11.2 [foz_us] 7.4-10.4 Automated blood neutrophils/100 leukocytes 47 % 42-75 Automated blood lymphocytes/100 leukocytes 40 % 12-44 Blood monocytes/100 leukocytes 10 % 0-12 Automated blood eosinophils/100 leukocytes 3 % 0-10 Automated blood basophils/100 leukocytes 1 % 0-10 Blood neutrophils automated count (number/volume) 3.0 10*3 1.8-7.8 Blood lymphocytes automated count (number/volume) 2.5 10*3 1.0-4.0 Blood monocytes automated count (number/volume) 0.6 10*3 0.0- 1.0 Automated eosinophil count 0.2 10*3/uL 0.0-0.3 Automated blood basophil count (count/volume) 0.0 10*3/uL 0.0-0.1 Comprehensive metabolic panel - 12/09/18 06:00 Serum or plasma sodium measurement (moles/volume) 139 mmol/L 135-145 Serum or plasma potassium measurement (moles/volume) 3.7 mmol/L 3.6-5.0 Serum or plasma chloride measurement (moles/volume) 111 mmol/L 98-107 Carbon dioxide 17 mmol/L 21-32 Serum or plasma anion gap determination (moles/volume) 11 mmol/L 5-14 Serum or plasma urea nitrogen measurement (mass/volume) 12 mg/dL 7-18 Serum or plasma creatinine measurement (mass/volume) 0.70 mg/dL 0.60-1.30 Serum or plasma urea nitrogen/creatinine mass ratio 17 NRG Serum or plasma creatinine measurement with calculation of estimated glomerular filtration rate > NRG Serum or plasma glucose measurement (mass/volume) 92 mg/dL 70-105 Serum or plasma calcium measurement (mass/volume) 8.8 mg/dL 8.5-10.1 Serum or plasma total bilirubin measurement (mass/volume) 2.0 mg/dL 0.1-1.0 Serum or plasma alkaline phosphatase measurement (enzymatic activity/volume) 73 U/L 40-136 Serum or plasma aspartate aminotransferase measurement (enzymatic activity/volume) 21 U/L 5-34 Serum or plasma alanine aminotransferase measurement (enzymatic activity/volume) 10 U/L 0-55 Serum or plasma protein measurement (mass/volume) 6.4 g/dL 6.4-8.2 Serum or plasma albumin measurement (mass/volume) 4.0 g/dL 3.2-4.5 CALCIUM CORRECTED 8.8 mg/dL 8.5-10.1 Complete blood count (CBC) with automated white blood cell (WBC) differential - 12/10/18 04:58 Blood leukocytes automated count (number/volume) 7.8 10*3/uL 4.3-11.0 Blood erythrocytes automated count (number/volume) 3.58 10*6/uL 4.35-5.85 Venous blood hemoglobin measurement (mass/volume) 8.1 g/dL 11.5-16.0 Blood hematocrit (volume fraction) 28 % 35-52 Automated erythrocyte mean corpuscular volume 79 [foz_us] 80-99 Automated erythrocyte mean corpuscular hemoglobin (mass per erythrocyte) 23 pg 25-34 Automated erythrocyte mean corpuscular hemoglobin concentration measurement (mass/volume) 29 g/dL 32-36 Automated erythrocyte distribution width ratio 17.6 % 10.0- 14.5 Automated blood platelet count (count/volume) 209 10*3/uL 130-400 Automated blood platelet mean volume measurement 11.9 [foz_us] 7.4-10.4 Automated blood neutrophils/100 leukocytes 54 % 42-75 Automated blood lymphocytes/100 leukocytes 33 % 12-44 Blood monocytes/100 leukocytes 9 % 0-12 Automated blood eosinophils/100 leukocytes 3 % 0-10 Automated blood basophils/100 leukocytes 0 % 0-10 Blood neutrophils automated count (number/volume) 4.3 10*3 1.8-7.8 Blood lymphocytes automated count (number/volume) 2.6 10*3 1.0-4.0 Blood monocytes automated count (number/volume) 0.7 10*3 0.0- 1.0 Automated eosinophil count 0.3 10*3/uL 0.0-0.3 Automated blood basophil count (count/volume) 0.0 10*3/uL 0.0-0.1 Whole blood basic metabolic panel - 12/10/18 04:58 Serum or plasma sodium measurement (moles/volume) 138 mmol/L 135-145 Serum or plasma potassium measurement (moles/volume) 4.2 mmol/L 3.6-5.0 Serum or plasma chloride measurement (moles/volume) 111 mmol/L 98-107 Carbon dioxide 17 mmol/L 21-32 Serum or plasma anion gap determination (moles/volume) 10 mmol/L 5-14 Serum or plasma urea nitrogen measurement (mass/volume) 20 mg/dL 7-18 Serum or plasma creatinine measurement (mass/volume) 0.69 mg/dL 0.60-1.30 Serum or plasma urea nitrogen/creatinine mass ratio 29 NRG Serum or plasma creatinine measurement with calculation of estimated glomerular filtration rate > NRG Serum or plasma glucose measurement (mass/volume) 93 mg/dL 70-105 Serum or plasma calcium measurement (mass/volume) 8.6 mg/dL 8.5-10.1 Complete blood count (CBC) with automated white blood cell (WBC) differential - 12/11/18 09:45 Blood leukocytes automated count (number/volume) 7.0 10*3/uL 4.3-11.0 Blood erythrocytes automated count (number/volume) 3.41 10*6/uL 4.35-5.85 Venous blood hemoglobin measurement (mass/volume) 7.8 g/dL 11.5-16.0 Blood hematocrit (volume fraction) 27 % 35-52 Automated erythrocyte mean corpuscular volume 80 [foz_us] 80-99 Automated erythrocyte mean corpuscular hemoglobin (mass per erythrocyte) 23 pg 25-34 Automated erythrocyte mean corpuscular hemoglobin concentration measurement (mass/volume) 29 g/dL 32-36 Automated erythrocyte distribution width ratio 18.7 % 10.0- 14.5 Automated blood platelet count (count/volume) 225 10*3/uL 130-400 Automated blood platelet mean volume measurement 11.3 [foz_us] 7.4-10.4 Automated blood neutrophils/100 leukocytes 69 % 42-75 Automated blood lymphocytes/100 leukocytes 18 % 12-44 Blood monocytes/100 leukocytes 9 % 0-12 Automated blood eosinophils/100 leukocytes 4 % 0-10 Automated blood basophils/100 leukocytes 0 % 0-10 Blood neutrophils automated count (number/volume) 4.9 10*3 1.8-7.8 Blood lymphocytes automated count (number/volume) 1.3 10*3 1.0-4.0 Blood monocytes automated count (number/volume) 0.6 10*3 0.0- 1.0 Automated eosinophil count 0.3 10*3/uL 0.0-0.3 Automated blood basophil count (count/volume) 0.0 10*3/uL 0.0-0.1 Whole blood basic metabolic panel - 12/11/18 09:45 Serum or plasma sodium measurement (moles/volume) 141 mmol/L 135-145 Serum or plasma potassium measurement (moles/volume) 3.7 mmol/L 3.6-5.0 Serum or plasma chloride measurement (moles/volume) 113 mmol/L 98-107 Carbon dioxide 19 mmol/L 21-32 Serum or plasma anion gap determination (moles/volume) 9 mmol/L 5-14 Serum or plasma urea nitrogen measurement (mass/volume) 20 mg/dL 7-18 Serum or plasma creatinine measurement (mass/volume) 0.82 mg/dL 0.60-1.30 Serum or plasma urea nitrogen/creatinine mass ratio 24 NRG Serum or plasma creatinine measurement with calculation of estimated glomerular filtration rate > NRG Serum or plasma glucose measurement (mass/volume) 121 mg/dL 70-105 Serum or plasma calcium measurement (mass/volume) 8.7 mg/dL 8.5-10.1 Complete blood count (CBC) with automated white blood cell (WBC) differential - 03/21/19 17:17 Blood leukocytes automated count (number/volume) 8.2 10*3/uL 4.3-11.0 Blood erythrocytes automated count (number/volume) 2.33 10*6/uL 4.35-5.85 Venous blood hemoglobin measurement (mass/volume) 4.9 g/dL 11.5-16.0 Blood hematocrit (volume fraction) 18 % 35-52 Automated erythrocyte mean corpuscular volume 79 [foz_us] 80-99 Automated erythrocyte mean corpuscular hemoglobin (mass per erythrocyte) 21 pg 25-34 Automated erythrocyte mean corpuscular hemoglobin concentration measurement (mass/volume) 27 g/dL 32-36 Automated erythrocyte distribution width ratio 18.6 % 10.0- 14.5 Automated blood platelet count (count/volume) 333 10*3/uL 130-400 Automated blood platelet mean volume measurement 10.8 [foz_us] 7.4-10.4 Automated blood neutrophils/100 leukocytes 69 % 42-75 Automated blood lymphocytes/100 leukocytes 23 % 12-44 Blood monocytes/100 leukocytes 8 % 0-12 Automated blood eosinophils/100 leukocytes 1 % 0-10 Automated blood basophils/100 leukocytes 0 % 0-10 Blood neutrophils automated count (number/volume) 5.7 10*3 1.8-7.8 Blood lymphocytes automated count (number/volume) 1.8 10*3 1.0-4.0 Blood monocytes automated count (number/volume) 1.0 10*3 0.0- 1.0 Automated eosinophil count 0.0 10*3/uL 0.0-0.3 Automated blood basophil count (count/volume) 0.0 10*3/uL 0.0-0.1 Whole blood basic metabolic panel - 03/21/19 17:17 Serum or plasma sodium measurement (moles/volume) 141 mmol/L 135-145 Serum or plasma potassium measurement (moles/volume) 4.1 mmol/L 3.6-5.0 Serum or plasma chloride measurement (moles/volume) 105 mmol/L 98-107 Carbon dioxide 16 mmol/L 21-32 Serum or plasma anion gap determination (moles/volume) 20 mmol/L 5-14 Serum or plasma urea nitrogen measurement (mass/volume) 19 mg/dL 7-18 Serum or plasma creatinine measurement (mass/volume) 0.74 mg/dL 0.60-1.30 Serum or plasma urea nitrogen/creatinine mass ratio 26 NRG Serum or plasma creatinine measurement with calculation of estimated glomerular filtration rate > NRG Serum or plasma glucose measurement (mass/volume) 125 mg/dL 70-105 Serum or plasma calcium measurement (mass/volume) 8.6 mg/dL 8.5-10.1 TROPONIN T - 03/21/19 17:17 TROPONIN T 74 % <=10 PT panel in platelet poor plasma by coagulation assay - 03/21/19 17:17 Prothrombin time (PT) in platelet poor plasma by coagulation assay 14.3 s 12.2-14.7 INR in platelet poor plasma or blood by coagulation assay 1.1 0.8-1.4 RED CELLS LEUKO REDUCED AS1 - 03/21/19 17:17 RED CELLS LEUKO REDUCED AS1 READY NRG Blood type T Indirect antibody screen panel - 03/21/19 17:17 ABO+Rh group OP NRG Transfusion band number [id number] NRG Blood group antibody screen NEGATIVE NRG RED CELLS LEUKO REDUCED AS1 - 03/21/19 17:17 RED CELLS LEUKO REDUCED AS1 NOT AVAILABLE NRG Blood type T Indirect antibody screen panel - 03/21/19 17:17 ABO+Rh group OP NRG Transfusion band number [id number] NRG Blood group antibody screen NEGATIVE NRG Lipase - 03/21/19 17:31 Lipase 47 U/L 8-78 Complete blood count (CBC) with automated white blood cell (WBC) differential - 03/22/19 04:25 Blood leukocytes automated count (number/volume) 7.9 10*3/uL 4.3-11.0 Blood erythrocytes automated count (number/volume) 3.43 10*6/uL 4.35-5.85 Venous blood hemoglobin measurement (mass/volume) 8.1 g/dL 11.5-16.0 Blood hematocrit (volume fraction) 27 % 35-52 Automated erythrocyte mean corpuscular volume 79 [foz_us] 80-99 Automated erythrocyte mean corpuscular hemoglobin (mass per erythrocyte) 24 pg 25-34 Automated erythrocyte mean corpuscular hemoglobin concentration measurement (mass/volume) 30 g/dL 32-36 Automated erythrocyte distribution width ratio 18.0 % 10.0- 14.5 Automated blood platelet count (count/volume) 265 10*3/uL 130-400 Automated blood platelet mean volume measurement 11.0 [foz_us] 7.4-10.4 Automated blood neutrophils/100 leukocytes 63 % 42-75 Automated blood lymphocytes/100 leukocytes 26 % 12-44 Blood monocytes/100 leukocytes 9 % 0-12 Automated blood eosinophils/100 leukocytes 1 % 0-10 Automated blood basophils/100 leukocytes 0 % 0-10 Blood neutrophils automated count (number/volume) 5.0 10*3 1.8-7.8 Blood lymphocytes automated count (number/volume) 2.1 10*3 1.0-4.0 Blood monocytes automated count (number/volume) 0.7 10*3 0.0- 1.0 Automated eosinophil count 0.1 10*3/uL 0.0-0.3 Automated blood basophil count (count/volume) 0.0 10*3/uL 0.0-0.1 Comprehensive metabolic panel - 03/22/19 04:25 Serum or plasma sodium measurement (moles/volume) 141 mmol/L 135-145 Serum or plasma potassium measurement (moles/volume) 4.0 mmol/L 3.6-5.0 Serum or plasma chloride measurement (moles/volume) 111 mmol/L 98-107 Carbon dioxide 17 mmol/L 21-32 Serum or plasma anion gap determination (moles/volume) 13 mmol/L 5-14 Serum or plasma urea nitrogen measurement (mass/volume) 16 mg/dL 7-18 Serum or plasma creatinine measurement (mass/volume) 0.81 mg/dL 0.60-1.30 Serum or plasma urea nitrogen/creatinine mass ratio 20 NRG Serum or plasma creatinine measurement with calculation of estimated glomerular filtration rate > NRG Serum or plasma glucose measurement (mass/volume) 99 mg/dL 70-105 Serum or plasma calcium measurement (mass/volume) 9.2 mg/dL 8.5-10.1 Serum or plasma total bilirubin measurement (mass/volume) 1.6 mg/dL 0.1-1.0 Serum or plasma alkaline phosphatase measurement (enzymatic activity/volume) 98 U/L 40-136 Serum or plasma aspartate aminotransferase measurement (enzymatic activity/volume) 22 U/L 5-34 Serum or plasma alanine aminotransferase measurement (enzymatic activity/volume) 13 U/L 0-55 Serum or plasma protein measurement (mass/volume) 6.8 g/dL 6.4-8.2 Serum or plasma albumin measurement (mass/volume) 4.2 g/dL 3.2-4.5 CALCIUM CORRECTED 9.0 mg/dL 8.5-10.1 Methicillin resistant Staphylococcus aureus (MRSA) screening culture - 03/22/19 11:51 Methicillin resistant Staphylococcus aureus (MRSA) screening culture NEG NRG Complete blood count (CBC) with automated white blood cell (WBC) differential - 03/23/19 05:45 Blood leukocytes automated count (number/volume) 6.0 10*3/uL 4.3-11.0 Blood erythrocytes automated count (number/volume) 3.40 10*6/uL 4.35-5.85 Venous blood hemoglobin measurement (mass/volume) 7.9 g/dL 11.5-16.0 Blood hematocrit (volume fraction) 27 % 35-52 Automated erythrocyte mean corpuscular volume 79 [foz_us] 80-99 Automated erythrocyte mean corpuscular hemoglobin (mass per erythrocyte) 23 pg 25-34 Automated erythrocyte mean corpuscular hemoglobin concentration measurement (mass/volume) 29 g/dL 32-36 Automated erythrocyte distribution width ratio 18.2 % 10.0- 14.5 Automated blood platelet count (count/volume) 274 10*3/uL 130-400 Automated blood platelet mean volume measurement 11.2 [foz_us] 7.4-10.4 Automated blood neutrophils/100 leukocytes 49 % 42-75 Automated blood lymphocytes/100 leukocytes 37 % 12-44 Blood monocytes/100 leukocytes 11 % 0-12 Automated blood eosinophils/100 leukocytes 3 % 0-10 Automated blood basophils/100 leukocytes 0 % 0-10 Blood neutrophils automated count (number/volume) 2.9 10*3 1.8-7.8 Blood lymphocytes automated count (number/volume) 2.2 10*3 1.0-4.0 Blood monocytes automated count (number/volume) 0.7 10*3 0.0- 1.0 Automated eosinophil count 0.2 10*3/uL 0.0-0.3 Automated blood basophil count (count/volume) 0.0 10*3/uL 0.0-0.1 Comprehensive metabolic panel - 03/23/19 05:45 Serum or plasma sodium measurement (moles/volume) 140 mmol/L 135-145 Serum or plasma potassium measurement (moles/volume) 3.9 mmol/L 3.6-5.0 Serum or plasma chloride measurement (moles/volume) 109 mmol/L 98-107 Carbon dioxide 19 mmol/L 21-32 Serum or plasma anion gap determination (moles/volume) 12 mmol/L 5-14 Serum or plasma urea nitrogen measurement (mass/volume) 16 mg/dL 7-18 Serum or plasma creatinine measurement (mass/volume) 0.78 mg/dL 0.60-1.30 Serum or plasma urea nitrogen/creatinine mass ratio 21 NRG Serum or plasma creatinine measurement with calculation of estimated glomerular filtration rate > NRG Serum or plasma glucose measurement (mass/volume) 95 mg/dL 70-105 Serum or plasma calcium measurement (mass/volume) 9.1 mg/dL 8.5-10.1 Serum or plasma total bilirubin measurement (mass/volume) 0.9 mg/dL 0.1-1.0 Serum or plasma alkaline phosphatase measurement (enzymatic activity/volume) 96 U/L 40-136 Serum or plasma aspartate aminotransferase measurement (enzymatic activity/volume) 20 U/L 5-34 Serum or plasma alanine aminotransferase measurement (enzymatic activity/volume) 13 U/L 0-55 Serum or plasma protein measurement (mass/volume) 6.7 g/dL 6.4-8.2 Serum or plasma albumin measurement (mass/volume) 4.0 g/dL 3.2-4.5 CALCIUM CORRECTED 9.1 mg/dL 8.5-10.1 Complete blood count (CBC) with automated white blood cell (WBC) differential - 03/24/19 05:50 Blood leukocytes automated count (number/volume) 6.9 10*3/uL 4.3-11.0 Blood erythrocytes automated count (number/volume) 3.21 10*6/uL 4.35-5.85 Venous blood hemoglobin measurement (mass/volume) 7.6 g/dL 11.5-16.0 Blood hematocrit (volume fraction) 26 % 35-52 Automated erythrocyte mean corpuscular volume 81 [foz_us] 80-99 Automated erythrocyte mean corpuscular hemoglobin (mass per erythrocyte) 24 pg 25-34 Automated erythrocyte mean corpuscular hemoglobin concentration measurement (mass/volume) 29 g/dL 32-36 Automated erythrocyte distribution width ratio 18.4 % 10.0- 14.5 Automated blood platelet count (count/volume) 229 10*3/uL 130-400 Automated blood platelet mean volume measurement 11.1 [foz_us] 7.4-10.4 Automated blood neutrophils/100 leukocytes 53 % 42-75 Automated blood lymphocytes/100 leukocytes 33 % 12-44 Blood monocytes/100 leukocytes 10 % 0-12 Automated blood eosinophils/100 leukocytes 5 % 0-10 Automated blood basophils/100 leukocytes 0 % 0-10 Blood neutrophils automated count (number/volume) 3.7 10*3 1.8-7.8 Blood lymphocytes automated count (number/volume) 2.3 10*3 1.0-4.0 Blood monocytes automated count (number/volume) 0.7 10*3 0.0- 1.0 Automated eosinophil count 0.3 10*3/uL 0.0-0.3 Automated blood basophil count (count/volume) 0.0 10*3/uL 0.0-0.1 Comprehensive metabolic panel - 03/24/19 05:50 Serum or plasma sodium measurement (moles/volume) 137 mmol/L 135-145 Serum or plasma potassium measurement (moles/volume) 3.9 mmol/L 3.6-5.0 Serum or plasma chloride measurement (moles/volume) 110 mmol/L 98-107 Carbon dioxide 17 mmol/L 21-32 Serum or plasma anion gap determination (moles/volume) 10 mmol/L 5-14 Serum or plasma urea nitrogen measurement (mass/volume) 16 mg/dL 7-18 Serum or plasma creatinine measurement (mass/volume) 1.03 mg/dL 0.60-1.30 Serum or plasma urea nitrogen/creatinine mass ratio 16 NRG Serum or plasma creatinine measurement with calculation of estimated glomerular filtration rate 54 NRG Serum or plasma glucose measurement (mass/volume) 91 mg/dL 70-105 Serum or plasma calcium measurement (mass/volume) 8.5 mg/dL 8.5-10.1 Serum or plasma total bilirubin measurement (mass/volume) 0.6 mg/dL 0.1-1.0 Serum or plasma alkaline phosphatase measurement (enzymatic activity/volume) 96 U/L 40-136 Serum or plasma aspartate aminotransferase measurement (enzymatic activity/volume) 21 U/L 5-34 Serum or plasma alanine aminotransferase measurement (enzymatic activity/volume) 15 U/L 0-55 Serum or plasma protein measurement (mass/volume) 6.1 g/dL 6.4-8.2 Serum or plasma albumin measurement (mass/volume) 3.6 g/dL 3.2-4.5 CALCIUM CORRECTED 8.8 mg/dL 8.5-10.1 Encounters ACCT No. Visit Date/Time Discharge Status Pt. Type Provider Facility Loc./Unit Complaint [id number] 03/21/2019 16:40:00 03/21/2019 23:59:59 [facility] [id number] 03/21/2019 19:40:00 03/24/2019 10:30:00 DIS Inpatient DEON CURIEL MD [facility] 4TH BLOOD LOSS ANEMIA, SYMPTOMATIC [id number] 01/11/2019 10:42:00 01/11/2019 15:25:00 DIS Outpatient NED HICKMAN MD [facility] ENDO SCREENING [id number] 01/10/2019 07:44:00 01/10/2019 12:48:00 DIS Outpatient NED HICKMAN MD [facility] PREOP COLONOSCOPY [id number] 12/08/2018 22:55:00 12/11/2018 13:12:00 DIS Inpatient DEON CURIEL MD [facility] 4TH SEVERE ANEMIA;CHF;SEVERE ASVD
--- NOTE | 2019-04-26 07:34 | ED General ---
General Stated Complaint: GENERAL WEAKNESS/PAIN History of Present Illness Date Seen by Provider: Apr 26, 2019 Time Seen by Provider: 07:33 Initial Comments The patient is a 64-year-old female with a history of hypertension, hyperlipidemia, coronary artery disease, peripheral artery disease, COPD with 80py smoking hx (quit 2015), history of chronic anemia w/ GI bleeding requiring transfusions, last with GI bleeding in February and status post admission for blood transfusion at that time, h/o ulcer and most recently noted to have esophagitis and gastritis without formal ulcer on EGD in February 2019. The patient presents with concern for at least 2 weeks of intermittent and worsening black and tarry stools with associated gradually progressive fatigue and shortness of breath with exertion. She states she feels very similar to how she has in the past when she has required transfusion in the setting of GI ble eding. She denies any pain of any kind and specifically denies fevers, nausea or vomiting, hematemesis, hematochezia, focal weakness, numbness, tingling, neck stiffness, vision changes, chest pain, flank pain, back pain, abdominal pain of any kind, dysuria or hematuria (though she notes some mild oliguria), diarrhea or constipation. Patient appears pale but vital signs are generally appropriate aside from oxygen saturation in the low 90s in the setting of what is likely fairly advanced COPD. She is speaking comfortably in full sentences and is in no acute distress. Allergies and Home Medications Allergies Coded Allergies: No Known Drug Allergies (Unverified , 04/26/19) Home Medications Acetaminophen 500 Mg Tablet, 1,000 MG PO Q4H PRN for PAIN-MILD, (Reported) Albuterol Sulfate 6.7 Gm Hfa.aer.ad, 2 PUFF INH Q4H PRN for SHORTNESS OF BREATH, (Reported) Ascorbate Calcium 500 Mg Tablet, 500 MG PO DAILY, (Reported) Aspirin 81 Mg Tablet.dr, 81 MG PO DAILY, (Reported) Atorvastatin Calcium 80 Mg Tablet, 80 MG PO DAILY, (Reported) Calcium Carbonate/Vitamin D3 1 Each Tablet, 1 TAB PO DAILY, (Reported) Carvedilol 3.125 Mg Tablet, 3.125 MG PO BID, (Reported) Ferrous Sulfate 325 Mg Tablet, 325 MG PO Q48H LAST FILLED #15 01-23-19 Prescribed by: GLENROY MAXWELL on 03/24/19 1029 Guaifenesin 1,200 Mg Tab.er.12h, 1,200 MG PO BID PRN for CONGESTION, (Reported) Isosorbide Mononitrate 30 Mg Tab.er.24h, 30 MG PO DAILY, (Reported) Losartan Potassium 100 Mg Tablet, 100 MG PO DAILY, (Reported) Multivitamin 1 Each Tablet, 1 TAB PO DAILY, (Reported) Nitroglycerin 0.4 Mg Tab.subl, 0.4 MG SL UD PRN for CHEST PAIN, (Reported) Pantoprazole Sodium 40 Mg Tablet.dr, 40 MG PO DAILY, (Reported) Sennosides 8.6 Mg Tablet, 8.6 MG PO DAILY PRN for CONSTIPATION-5TH LINE, (Reported) Sucralfate 1 Gm Tablet, 1 GM PO ACHS Prescribed by: GLENROY MAXWELL on 03/24/19 1029 Zinc Gluconate 50 Mg Tablet, 50 MG PO DAILY, (Reported) Patient Home Medication List Home Medication List Reviewed: Yes Review of Systems Review of Systems Constitutional: see HPI All Other Systems Reviewed Negative Unless Noted: Yes Past Bikrtko-Xckhsg-Viejqm Hx Past Med/Social Hx: Reviewed Nursing Past Med/Soc Hx Patient Social History Drug of Choice: HX ETOH ABUSE Type Used: Cigarettes Former Smoker, Quit: Nov 22, 2015 2nd Hand Smoke Exposure: No Recent Hopitalizations: No Immunizations Up To Date Date of Pneumonia Vaccine: Dec 11, 2018 Date of Influenza Vaccine: Aug 22, 2018 Seasonal Allergies Seasonal Allergies: No Past Medical History Surgeries: Yes (CARDIAC CATH--STENTS X 2; CERVICAL CONIZATION) Cardiac, Coronary Stent, Gallbladder Respiratory: Yes (HX 2 PK A DAY SMOKER ENDING 2015) COPD Cardiac: Yes (CHF) Coronary Artery Disease, Heart Attack, High Cholesterol, Hypertension, Peripheral Vascular Neurological: Yes Headaches /Migraines Reproductive Disorders: Yes (CERVICAL DYSPLASIA. --S/P CRYOTHERAPY AND CONIZATION) DISH WASHER History: Menopausal Genitourinary: Yes Renal Failure Gastrointestinal: Yes Gastroesophageal Reflux, Liver Disease/Jaundice, Cirrhosis Musculoskeletal: Yes (ARTHRITIS --KNEES, BACK) Arthritis, Chronic Back Pain Endocrine: No HEENT: Yes Cancer: No Psychosocial: No Integumentary: No Blood Disorders: Yes (ANEMIA --CURRENT PROBLEM STARTING 12/08/18) Family Medical History Reviewed Nursing Family Hx Heart Disease, Diabetes Physical Exam Vital Signs Vital Signs - First Documented 04/26/19 07:31 Temp 97.5 Pulse 89 Resp 24 B/P (MAP) 103/91 (95) Pulse Ox 93 Capillary Refill : Height, Weight, BMI Height: 5'5.00" Weight: 170lbs. 9.6oz. 77.424956ts; 27.4 BMI Method:Stated General Appearance: No Apparent Distress Comments This is an older female appearing chronically ill but nontoxic and in no acute distress. She is quite pale and has pallor to her mucous membranes. Head is normocephalic and atraumatic. Neck is supple and nontender. Oropharynx is mildly tacky. Lungs are clear to auscultation at all stations. There is a normal S1 and S2 without rubs or gallops and capillary refill is appropriate, less than 2 seconds globally. There is a systolic murmur which the patient states is not new. Abdomen is soft, nontender and nondistended. Skin is warm and dry without cyanosis, clubbing or peripheral edema. Psychiatrically, the patient demonstrates appropriate mood and affect and is alert. From a neurologic standpoint, patient moves all extremities equally and there are no lateralizing deficits grossly noted and she is alert and oriented 4. Focused Exam Lactate Level 04/26/19 07:50: Lactic Acid Level 1.56 Lactic Acid Level Laboratory Tests Test 04/26/19 07:50 Lactic Acid Level 1.56 MMOL/L (0.50-2.00) Progress/Results/Core Measures Suspected Sepsis SIRS Temperature: Pulse: Respiratory Rate: Laboratory Tests 04/26/19 07:50: White Blood Count 11.8H Blood Pressure / Mean: 04/26/19 07:50: Lactic Acid Level 1.56 Laboratory Tests 04/26/19 07:50: Creatinine 1.05, INR Comment 1.0, Platelet Count 355, Total Bilirubin 0.9 Results/Orders Lab Results Laboratory Tests Test 04/26/19 07:50 04/26/19 08:00 Range/Units White Blood Count 11.8 H 4.3-11.0 10^3/uL Red Blood Count 2.38 L 4.35-5.85 10^6/uL Hemoglobin 5.1 *L 11.5-16.0 G/DL Hematocrit 19 *L 35-52 % Mean Corpuscular Volume 79 L 80-99 FL Mean Corpuscular Hemoglobin 21 L 25-34 PG Mean Corpuscular Hemoglobin Concent 27 L 32-36 G/DL Red Cell Distribution Width 18.7 H 10.0-14.5 % Platelet Count 355 130-400 10^3/uL Mean Platelet Volume 9.9 7.4-10.4 FL Neutrophils (%) (Auto) 86 H 42-75 % Lymphocytes (%) (Auto) 8 L 12-44 % Monocytes (%) (Auto) 5 0-12 % Eosinophils (%) (Auto) 1 0-10 % Basophils (%) (Auto) 0 0-10 % Neutrophils # (Auto) 10.1 H 1.8-7.8 X 10^3 Lymphocytes # (Auto) 1.0 1.0-4.0 X 10^3 Monocytes # (Auto) 0.6 0.0-1.0 X 10^3 Eosinophils # (Auto) 0.1 0.0-0.3 10^3/uL Basophils # (Auto) 0.0 0.0-0.1 10^3/uL Prothrombin Time 14.0 12.2-14.7 SEC INR Comment 1.0 0.8-1.4 Activated Partial Thromboplast Time 30 24-35 SEC Sodium Level 137 135-145 MMOL/L Potassium Level 3.7 3.6-5.0 MMOL/L Chloride Level 102 98-107 MMOL/L Carbon Dioxide Level 16 L 21-32 MMOL/L Anion Gap 19 H 5-14 MMOL/L Blood Urea Nitrogen 15 7-18 MG/DL Creatinine 1.05 0.60-1.30 MG/DL Estimat Glomerular Filtration Rate 53 BUN/Creatinine Ratio 14 Glucose Level 111 H 70-105 MG/DL Lactic Acid Level 1.56 0.50-2.00 MMOL/L Calcium Level 9.0 8.5-10.1 MG/DL Corrected Calcium 8.9 8.5-10.1 MG/DL Total Bilirubin 0.9 0.1-1.0 MG/DL Aspartate Amino Transf (AST/SGOT) 21 5-34 U/L Alanine Aminotransferase (ALT/SGPT) 10 0-55 U/L Alkaline Phosphatase 92 40-136 U/L Troponin T 25 H <=10 NG/L Pro-B-Type Natriuretic Peptide 39261.0 H <75.0 PG/ML Total Protein 6.5 6.4-8.2 GM/DL Albumin 4.1 3.2-4.5 GM/DL Stool Occult Blood Immunoassay POSITIVE H NEGATIVE My Orders Orders - EUFEMIA DAILY MD Cbc With Automated Diff (04/26/19 07:45) Comprehensive Metabolic Panel (04/26/19 07:45) Troponin T (04/26/19 07:45) Ekg Tracing (04/26/19 07:45) Chest Pa/Lat (2 View) (04/26/19 07:45) Ua Culture If Indicated (04/26/19 07:45) Probnp Fs (04/26/19 07:45) Protime With Inr (04/26/19 07:45) Partial Thromboplastin Time (04/26/19 07:45) Occult Blood Stool (04/26/19 07:45) Ed Iv/Invasive Line Start (04/26/19 07:45) Ns Iv 1000 Ml (Sodium Chloride 0.9%) (04/26/19 07:45) Lactic Acid Analyzer (04/26/19 07:45) Pantoprazole Injection (Protonix Injecti (04/26/19 07:45) Albuterol/Ipra Inhalation Soln (Duoneb I (04/26/19 08:00) Svn Small Volume Nebulizer (04/26/19 07:59) Manual Differential (04/26/19 07:50) Red Cells Leukocytes Reduced (04/26/19 08:31) Type And Screen (04/26/19 08:31) Ns (Ivpb) (Sodium C... W/Pantoprazole In (04/26/19 08:45) Iv/Invasive Line Insertion .IV start (04/26/19 08:33) Medications Given in ED Current Medications Medications Dose Ordered Sig/Zulma Route Start Time Stop Time Status Last Admin Dose Admin Albuterol/ Ipratropium 3 ml ONCE ONCE INH 04/26/19 08:00 04/26/19 08:01 DC 04/26/19 08:07 3 ML Pantoprazole 80 mg ONCE ONCE IV 04/26/19 07:45 04/26/19 07:49 DC 04/26/19 08:07 80 MG Vital Signs/I&O 04/26/19 07:31 Temp 97.5 Pulse 89 Resp 24 B/P (MAP) 103/91 (95) Pulse Ox 93 Capillary Refill : Progress Note : Time: 07:40 Progress Note Quite comorbid 64-year-old with a history of GI bleeding requiring repeated transfusions, most recently with findings of gastritis and esophagitis without formal ulcer in February at her last admission, who presents with 2 weeks of tarry stools and progressive fatigue and shortness of breath with ambulation. She is very pale. Will check labs and EKG and chest x-ray and urinalysis and give IV fluids and will check a Hemoccult, which I feel will likely be positive. We'll go ahead and give a Protonix bolus. Patient is a challenging IV stick but will attempt a second line for additional IV access. She will likely require admission. The patient understands and agrees with the plan of care. Update 0830: Hgb result is 5.1 with +hemoccult. Will initiate 2nd large-bore PIV, start Protonix gtt and transfuse with PRBCs. As we have only 4 units of Type O blood here at [place] and I would expect transfusion to take some time, will start with 1U to conserve our supplies as patient is stable and bleeding is quite indolent over about 2 weeks, with anticipation of further transfusion occurring at [place] when the patient arrives there. Update 0901: Patient is resting comfortably and vital signs remain stable and appropriate. Workup is as noted, with some evidence of fluid overload on chest x-ray and elevated BNP but not significantly hypoxic. We have placed her on 2 L of nasal cannula oxygen to reduce cardiorespiratory stress in the setting of severe anemia and chronic lung disease but her saturations remain about 92-93% on room air. She will need to be very carefully repleted with volume and may require some diuresis inpatient as well. Troponin very slightly elevated likely secondary to demand. No acute EKG changes today. Dr. Gorman graciously accepts for stepdown admission. ECG Comment Sinus rhythm, lateral ST depressions, slightly less pronounced than on most recent prior EKG of February 2019, mild septal ST elevation V1, also chronic and seen previously, rate 77, DE 154, QRS 94, QTc 463, EP interpretation. Diagnostic Imaging Diagonstic Imaging: Xray Comments EXAM: CHEST PA/LAT (2 VIEW). INDICATION: Chest pain. Congestion. Shortness of breath. COMPARISON: Chest radiograph of 12/09/2018. FINDINGS: The small right pleural effusion is new since the prior exam. Cardiomegaly. The prominent central pulmonary vascularity and interstitial opacities have progressed since the prior exam. No pneumothorax. No acute osseous findings. IMPRESSION: 1. Cardiomegaly as well as increased pulmonary vascularity and interstitial prominence have progressed since the prior exam, suspicious for interstitial edema. 2. New small right pleural effusion. Critical Care Note Critical Care Start Time: 07:45 Stop Time: 08:45 Total Time (minutes) 1 hour Progress Patient stable and resting comfortably in NAD, stable for transport to [facility]. Departure Impression Primary Impression: Blood loss anemia Additional Impressions: Acute upper GI bleeding Acute exacerbation of congestive heart failure Qualified Codes: I50.43 - Acute on chronic combined systolic (congestive) and diastolic (congestive) heart failure Elevated troponin level Disposition: ADMITTED INPATIENT Condition: Improved Admissions Decision to Admit Reason: Admit from ER (General) Departure-Patient Inst. Referrals: NO,LOCAL PHYSICIAN (PCP/Family) Primary Care Physician EUFEMIA DAILY MD Apr 26, 2019 07:33
[2019-04-26] MEDS ORDERED: PANTOPRAZOLE 40 MG (PROTONIX) VIAL IV ONE (07:45)
[2019-04-26] MEDS ORDERED: NS IV 1000 ML 1,000 ML IV SCH (07:45)
[2019-04-26] MEDS ORDERED: RT-ALBUTEROL/IPRATROPIUM 3 ML (DUONEB) VIAL INH ONE (08:00)
[2019-04-26 08:19] LABS: MEAN CORPUSCULAR HEMOGLOBIN 21 PG (25-34); MEAN CORPUSCULAR HGB CONC 27 G/DL (32-36); MEAN CORPUSCULAR VOLUME 79 FL (80-99); WHITE BLOOD COUNT 11.8 10^3/uL (4.3-11.0)
[2019-04-26 08:24] LABS: HEMOGLOBIN 5.1 G/DL (11.5-16.0)
[2019-04-26 08:25] LABS: HEMATOCRIT 19 % (35-52); MEAN PLATELET VOLUME 9.9 FL (7.4-10.4); NEUTROPHILS % (AUTO) 86 % (42-75); PLATELET COUNT 355 10^3/uL (130-400); RED CELL DISTRIBUTION WIDTH 18.7 % (10.0-14.5)
[2019-04-26 08:26] LABS: BASOPHILS % (AUTO) 0 % (0-10); EOSINOPHILS # (AUTO) 0.1 10^3/uL (0.0-0.3); EOSINOPHILS % (AUTO) 1 % (0-10); LYMPHOCYTES % (AUTO) 8 % (12-44); MONOCYTES # (AUTO) 0.6 X 10^3 (0.0-1.0); MONOCYTES % (AUTO) 5 % (0-12); NEUTROPHILS # (AUTO) 10.1 X 10^3 (1.8-7.8)
--- NOTE | 2019-04-26 08:36 | Diagnostic Imaging Report ---
EXAM: CHEST PA/LAT (2 VIEW). INDICATION: Chest pain. Congestion. Shortness of breath. COMPARISON: Chest radiograph of 12/09/2018. FINDINGS: The small right pleural effusion is new since the prior exam. Cardiomegaly. The prominent central pulmonary vascularity and interstitial opacities have progressed since the prior exam. No pneumothorax. No acute osseous findings. IMPRESSION: 1. Cardiomegaly as well as increased pulmonary vascularity and interstitial prominence have progressed since the prior exam, suspicious for interstitial edema. 2. New small right pleural effusion. Dictated by: Dictated on workstation # [id number]
[2019-04-26] MEDS ORDERED: PANTOPRAZOLE INJECTION 200 MG in NS (IVPB) 100 ML IV SCH (08:45)
[2019-04-26 08:47] LABS: BILIRUBIN,TOTAL 0.9 MG/DL (0.1-1.0); CREATININE SERUM 1.05 MG/DL (0.60-1.30); POTASSIUM 3.7 MMOL/L (3.6-5.0)
[2019-04-26 08:48] LABS: ALBUMIN 4.1 GM/DL (3.2-4.5); TOTAL PROTEIN 6.5 GM/DL (6.4-8.2)
[2019-04-26] MEDS ORDERED: NS IV 500 ML 0 ML ONE (09:09)
[2019-04-26] MEDS ORDERED: NS (IVPB) 250 ML ONE (09:11)
--- NOTE | 2019-04-26 09:25 | NUR ---
Blood transfusion started at this time.
[2019-04-26] MEDS ORDERED: PROCHLORPERAZINE 10 MG/2ML INJ (COMPAZINE) IV ONE (09:45)
[2019-04-26] MEDS ORDERED: diphenhydrAMINE 50 MG/ML INJ (BENADRYL) IVP ONE (09:45)
[2019-04-26] MEDS ORDERED: ACETAMINOPHEN 500 MG TAB (TYLENOL) PO ONE (09:45)
[2019-04-26 09:52] LABS: BILIRUBIN,URINE NEGATIVE (NEGATIVE); CLARITY,URINE SL CLOUDY; COLOR,URINE YELLOW; GLUCOSE, URINE (UA) NEGATIVE (NEGATIVE); KETONES,URINE TRACE (NEGATIVE); NITRITE,URINE POSITIVE (NEGATIVE); PROTEIN,URINE NEGATIVE (NEGATIVE)
--- NOTE | 2019-04-26 09:52 | NUR ---
Called ICU to give report. Nurse to call back when available.
[2019-04-26 09:53] LABS: BACTERIA,URINE LARGE /HPF; LEUKOCYTE ESTERASE ,URINE 1+ (NEGATIVE); UROBILINOGEN,URINE 0.2 MG/DL (NORMAL); WBC,URINE 25-50 /HPF
--- OUTSIDE RECORDS SUMMARY | 2019-04-26 09:53 | XMS REPORT | Continuity of Care Document ---
Author Organization Unknown Address Unknown Allergies Active Description Code Type Severity Reaction Onset Reported/Identified Relationship to Patient Clinical Status Yes No Known Drug Allergies [id number] Drug Allergy Unknown N/A 01/10/2019 Medications There [...] MD Ot I25.10 ATHSCL HEART DISEASE OF [place] CORONARY 12/11/2018 DEON CURIEL MD, Ot I25.2 [...] ASC 12/11/2018 DEON CURIEL MD Ot Z79.82 NURSING HOME (CURRENT) USE OF ASPIRIN 12/11/2018 DEON CURIEL MD, Ot Z79.899 OTHER RELAY SHOP TESTER (CURRENT) DRUG THERAPY 12/11/2018 DEON CURIEL MD, [...] MD Ot I25.10 ATHSCL HEART DISEASE OF [place] CORONARY 12/11/2018 DEON CURIEL MD, Ot I25.2 [...] K44.9 DIAPHRAGMATIC HERNIA WITHOUT OBSTRUCTION 12/11/2018 DEON CURILE MD Ot K70.30 ALCOHOLIC CIRRHOSIS OF LIVER [...] MD, Ot I25.10 ATHSCL HEART DISEASE OF [place] CORONARY 01/12/2019 NED HICKMAN MD, Ot I25.2 OLD MYOCARDIAL INFARCTION 01/12/2019 NED HICKMAN MD, Ot I73.9 PERIPHERAL VASCULAR DISEASE, UNSPECIFIED 01/12/2019 NED HICKMAN MD, Ot K21.0 GASTRO-ESOPHAGEAL REFLUX DISEASE WITH ES 01/12/2019 NED HICKMAN MD, Ot K25.9 GASTRIC ULCER, UNSP ACUTE OR CHRONIC, 01/12/2019 NED HICMKAN MD, Ot K29.70 GASTRITIS, UNSPECIFIED, WITHOUT BLEEDING [...] NE 01/12/2019 NED HICKMAN MD, Ot Z79.02 RELAY SHOP TESTER (CURRENT) USE OF 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 01/12/2019 NED HICKMAN MD, Ot Z79.82 NURSING HOME (CURRENT) USE OF ASPIRIN 01/12/2019 NED HICKMAN MD, Ot Z79.899 OTHER RELAY SHOP TESTER (CURRENT) DRUG THERAPY 01/12/2019 NED HICKMAN MD, Ot Z87.891 PERSONAL HISTORY OF NICOTINE DEPENDENCE 01/13/2019 NED HICKMAN MD Ot D50.9 IRON DEFICIENCY ANEMIA, UNSPECIFIED 01/13/2019 NED HICKMAN MD, Ot E78.00 PURE HYPERCHOLESTEROLEMIA, UNSPECIFIED 01/13/2019 NED HICKMAN MD Ot I10 ESSENTIAL (PRIMARY) HYPERTENSION 01/13/2019 NED HICKMAN MD, Ot I25.10 ATHSCL HEART DISEASE OF [place] CORONARY 01/13/2019 NED HICKMAN MD, Ot I25.2 [...] NE 01/13/2019 NED HICKMAN MD, Ot Z79.02 RELAY SHOP TESTER (CURRENT) USE OF 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 01/13/2019 NED HICKMAN MD, Ot Z79.82 RELAY SHOP TESTER (CURRENT) USE OF ASPIRIN 01/13/2019 NED HICKMAN MD, Ot Z79.899 OTHER RELAY SHOP TESTER (CURRENT) DRUG THERAPY 01/13/2019 NED HICKMAN MD, Ot Z87.891 PERSONAL HISTORY OF NICOTINE DEPENDENCE 01/19/2019 NED HICKMAN MD, Ot D50.9 IRON DEFICIENCY ANEMIA, UNSPECIFIED 01/19/2019 NED HICKMAN MD, Ot E78.00 PURE HYPERCHOLESTEROLEMIA, UNSPECIFIED 01/19/2019 NED HICKMAN MD Ot I10 ESSENTIAL (PRIMARY) HYPERTENSION 01/19/2019 NED HICKMAN MD, Ot I25.10 ATHSCL HEART DISEASE OF [place] CORONARY 01/19/2019 NED HICKMAN MD, Ot I25.2 [...] NE 01/19/2019 NED HICKMAN MD, Ot Z79.02 RELAY SHOP TESTER (CURRENT) USE OF 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 01/19/2019 NED HICKMAN MD, Ot Z79.82 NURSING HOME (CURRENT) USE OF ASPIRIN 01/19/2019 NED HICKMAN MD, Ot Z79.899 OTHER RELAY SHOP TESTER (CURRENT) DRUG THERAPY 01/19/2019 NED HICKMAN MD, Ot Z87.891 PERSONAL HISTORY OF NICOTINE DEPENDENCE 01/19/2019 NED HICKMAN MD, Ot D50.9 IRON DEFICIENCY ANEMIA, UNSPECIFIED 01/19/2019 NED HICKMAN MD, Ot E78.00 PURE HYPERCHOLESTEROLEMIA, UNSPECIFIED 01/19/2019 NED HICKMNA MD, Ot I10 ESSENTIAL (PRIMARY) HYPERTENSION 01/19/2019 NED HICKMAN MD, Ot I25.10 ATHSCL HEART DISEASE OF [place] CORONARY 01/19/2019 NED HICKMAN MD, Ot I25.2 [...] NE 01/19/2019 NED HICKMAN MD, Ot Z79.02 RELAY SHOP TESTER (CURRENT) USE OF 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 01/19/2019 NED HICKMAN MD, Ot Z79.82 RELAY SHOP TESTER (CURRENT) USE OF ASPIRIN 01/19/2019 NED HICKMAN MD, Ot Z79.899 OTHER RELAY SHOP TESTER (CURRENT) DRUG THERAPY 01/19/2019 NED HICKMAN MD, Ot Z87.891 PERSONAL HISTORY OF NICOTINE DEPENDENCE 01/19/2019 NED HICKMAN MD, Ot D50.9 IRON DEFICIENCY ANEMIA, UNSPECIFIED 01/19/2019 NED HICKMAN MD, Ot E78.00 PURE HYPERCHOLESTEROLEMIA, UNSPECIFIED 01/19/2019 NED HICKMAN MD, Ot I10 ESSENTIAL (PRIMARY) HYPERTENSION 01/19/2019 NED HICKMAN MD, Ot I25.10 ATHSCL HEART DISEASE OF [place] CORONARY 01/19/2019 NED HICKMAN MD, Ot I25.2 [...] NE 01/19/2019 NED HICKMAN MD, Ot Z79.02 RELAY SHOP TESTER (CURRENT) USE OF 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 01/19/2019 NED HICKMAN MD, Ot Z79.82 NURSING HOME (CURRENT) USE OF ASPIRIN 01/19/2019 NED HICKMAN MD, Ot Z79.899 OTHER NURSING HOME (CURRENT) DRUG THERAPY 01/19/2019 NED HICKMAN MD, Ot Z87.891 PERSONAL HISTORY OF NICOTINE DEPENDENCE 01/27/2019 NED HICKMAN MD, Ot D50.9 IRON DEFICIENCY ANEMIA, UNSPECIFIED 01/27/2019 NED HICKMAN MD, Ot E78.00 PURE HYPERCHOLESTEROLEMIA, UNSPECIFIED 01/27/2019 NED HICKMAN MD, Ot I10 ESSENTIAL (PRIMARY) HYPERTENSION 01/27/2019 NED HICKMAN MD, Ot I25.10 ATHSCL HEART DISEASE OF [place] CORONARY 01/27/2019 NED HICKMAN MD, Ot I25.2 [...] ASC 01/27/2019 NED HICKMAN MD, Ot Z79.02 RELAY SHOP TESTER (CURRENT) USE OF 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 01/27/2019 NED HICKMAN MD, Ot Z79.82 RELAY SHOP TESTER (CURRENT) USE OF ASPIRIN 01/27/2019 NED HICKMAN MD, Ot Z79.899 OTHER NURSING HOME (CURRENT) DRUG THERAPY 01/27/2019 NED HICKMAN MD, [...] MD Ot I25.10 ATHSCL HEART DISEASE OF [place] CORONARY 03/24/2019 DEON CURIEL MD, Ot I25.2 [...] UNSPECIFIED 03/24/2019 DEON CURIEL MD Ot Z79.02 NURSING HOME (CURRENT) USE OF 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 03/24/2019 DEON CURIEL MD Ot Z79.82 RELAY SHOP TESTER (CURRENT) USE OF ASPIRIN 03/24/2019 DEON CURIEL [...] MD Ot I25.10 ATHSCL HEART DISEASE OF [place] CORONARY 03/24/2019 DEON CURIEL MD Ot I25.2 [...] UNSPECIFIED 03/24/2019 DEON CURIEL MD Ot Z79.02 NURSING HOME (CURRENT) USE OF 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 03/24/2019 DEON CURIEL MD Ot Z79.82 RELAY SHOP TESTER (CURRENT) USE OF ASPIRIN 03/24/2019 DEON CURIEL MD Ot Z86.010 PERSONAL HISTORY OF COLONIC POLYPS 03/24/2019 DEON CURIEL MD Ot Z87.891 PERSONAL HISTORY OF NICOTINE DEPENDENCE 03/24/2019 DEON CURIEL MD Ot Z95.5 PRESENCE OF CORONARY ANGIOPLASTY IMPLANT Procedures Code Description Performed By Performed On [id number] EXCISION OF ESOPHAGOGASTRIC JUNCTION, EN 12/09/2018 [id number] EXCISION OF STOMACH, PYLORUS, ENDO, DIAG 12/09/2018 [id number] EXCISION OF ESOPHAGOGASTRIC JUNCTION, EN 03/23/2019 [id number] EXCISION OF STOMACH, PYLORUS, ENDO, DIAG 03/23/2019 [...] ABO+Rh group OP NRG Transfusion band number [id number] NRG Blood group antibody screen NEGATIVE NRG [...] automated white blood cell (WBC) differential - 04/26/19 07:50 Blood leukocytes automated count (number/volume) 11.8 10*3/uL 4.3-11.0 Blood erythrocytes automated count (number/volume) 2.38 10*6/uL 4.35-5.85 Venous blood hemoglobin measurement (mass/volume) 5.1 g/dL 11.5-16.0 Blood hematocrit (volume fraction) 19 % 35-52 Automated erythrocyte mean corpuscular volume 79 [foz_us] 80-99 Automated erythrocyte mean corpuscular hemoglobin (mass per erythrocyte) 21 pg 25-34 Automated erythrocyte mean corpuscular hemoglobin concentration measurement (mass/volume) 27 g/dL 32-36 Automated erythrocyte distribution width ratio 18.7 % 10.0- 14.5 Automated blood platelet count (count/volume) 355 10*3/uL 130-400 Automated blood platelet mean volume measurement 9.9 [foz_us] 7.4-10.4 Automated blood neutrophils/100 leukocytes 86 % 42-75 Automated blood lymphocytes/100 leukocytes 8 % 12-44 Blood monocytes/100 leukocytes 5 % 0-12 Automated blood eosinophils/100 leukocytes 1 % 0-10 Automated blood basophils/100 leukocytes 0 % 0-10 Blood neutrophils automated count (number/volume) 10.1 10*3 1.8-7.8 Blood lymphocytes automated count (number/volume) 1.0 10*3 1.0-4.0 Blood monocytes automated count (number/volume) 0.6 10*3 0.0- 1.0 Automated eosinophil count 0.1 10*3/uL 0.0-0.3 Automated blood basophil count (count/volume) 0.0 10*3/uL 0.0-0.1 PT panel in platelet poor plasma by coagulation assay - 04/26/19 07:50 Prothrombin time (PT) in platelet poor plasma by coagulation assay 14.0 s 12.2-14.7 INR in platelet poor plasma or blood by coagulation assay 1.0 0.8-1.4 Activated partial thromboplastin time (aPTT) in platelet poor plasma bycoagulation assay - 04/26/19 07:50 Activated partial thromboplastin time (aPTT) in platelet poor plasma bycoagulation assay 30 s 24-35 Blood lactic acid measurement (moles/volume) - 04/26/19 07:50 Blood lactic acid measurement (moles/volume) 1.56 mmol/L 0.50- 2.00 Comprehensive metabolic panel - 04/26/19 07:50 Serum or plasma sodium measurement (moles/volume) 137 mmol/L 135-145 Serum or plasma potassium measurement (moles/volume) 3.7 mmol/L 3.6-5.0 Serum or plasma chloride measurement (moles/volume) 102 mmol/L 98-107 Carbon dioxide 16 mmol/L 21-32 Serum or plasma anion gap determination (moles/volume) 19 mmol/L 5-14 Serum or plasma urea nitrogen measurement (mass/volume) 15 mg/dL 7-18 Serum or plasma creatinine measurement (mass/volume) 1.05 mg/dL 0.60-1.30 Serum or plasma urea nitrogen/creatinine mass ratio 14 NRG Serum or plasma creatinine measurement with calculation of estimated glomerular filtration rate 53 NRG Serum or plasma glucose measurement (mass/volume) 111 mg/dL 70-105 Serum or plasma calcium measurement (mass/volume) 9.0 mg/dL 8.5-10.1 Serum or plasma total bilirubin measurement (mass/volume) 0.9 mg/dL 0.1-1.0 Serum or plasma alkaline phosphatase measurement (enzymatic activity/volume) 92 U/L 40-136 Serum or plasma aspartate aminotransferase measurement (enzymatic activity/volume) 21 U/L 5-34 Serum or plasma alanine aminotransferase measurement (enzymatic activity/volume) 10 U/L 0-55 Serum or plasma protein measurement (mass/volume) 6.5 g/dL 6.4-8.2 Serum or plasma albumin measurement (mass/volume) 4.1 g/dL 3.2-4.5 CALCIUM CORRECTED 8.9 mg/dL 8.5-10.1 TROPONIN T - 04/26/19 07:50 TROPONIN T 25 % <=10 PROBNP FS - 04/26/19 07:50 [place] [address].0 pg/mL <75.0 Stool occult blood screen - 04/26/19 08:00 Stool gastrointestinal hemoglobin detection POSITIVE NEGATIVE Encounters ACCT No. Visit Date/Time Discharge Status Pt. Type Provider Facility Loc./Unit Complaint [id number] 03/21/2019 16:40:00 03/21/2019 23:59:59 [facility] Outpatient JJ SHAW [facility] [id number] 03/21/2019 19:40:00 03/24/2019 10:30:00 DIS Inpatient DEON CURIEL MD [facility] 4TH BLOOD LOSS ANEMIA, SYMPTOMATIC [id number] 01/11/2019 10:42:00 01/11/2019 15:25:00 DIS Outpatient NED HICKMAN MD [facility] ENDO SCREENING [id number] 01/10/2019 07:44:00 01/10/2019 12:48:00 DIS Outpatient NED HICKMAN MD [facility] PREOP COLONOSCOPY [id number] 12/08/2018 22:55:00 12/11/2018 13:12:00 DIS Inpatient DEON CURIEL MD [facility] 4TH SEVERE ANEMIA;CHF;SEVERE ASVD [id number] 04/26/2019 08:27:00 Document Registration
[2019-04-26 10:01] LABS: BAND NEUTROPHILS 4 %; HYPOCHROMASIA 3+; LYMPHOCYTES % (MANUAL) 9 %; MONOCYTES % (MANUAL) 5 %; NEUTROPHILS % (MANUAL) 82 %; POIKILOCYTOSIS 1+
[2019-04-26 10:02] LABS: ANISOCYTOSIS 3+; ELLIPT/OVALOCYTES SLIGHT; MICROCYTOSIS 2+; TARGET CELLS 1+
[2019-04-26] MEDS ORDERED: MAGNESIUM CITRATE 300 ML BTL PO NR (12:15)
[2019-04-26] MEDS ORDERED: PANT40TA3 PO (13:13)
[2019-04-26] MEDS ORDERED: FUROSEMIDE 40 MG/4 ML INJ (LASIX) IVP NR (13:13)
--- NOTE | 2019-04-26 13:13 | NUR ---
WENT OVER THE EXT MED HX WITH THE PATIENT, SHE VERIFIED HOW SHE TAKES EACH MEDICATION. SHE STATES NOTHING HAS CHANGED SINCE HER LAST VISIT EXCEPT SHE IS NO LONGER TAKING THE IRON SUPPLEMENT, SHE ONLY TAKES THE MTV DAILY THAT HAS SOME IRON IN IT. SHE STATES SHE IS OUT OF THE CARAFATE THAT WAS ORDERED WHEN SHE LEFT LAST TIME SO SHE IS NO LONGER TAKING THAT. SHE HAS HAD ALL OF HER AM MEDICATIONS TODAY.
[2019-04-26] MEDS ORDERED: NS IV 500 ML 500 ML IV SCH (13:30)
--- NOTE | 2019-04-26 14:03 | CONSULTATION REPORT ---
DATE OF SERVICE: 04/26/2019 HISTORY OF PRESENT ILLNESS: The patient is a 64-year-old female, who we have seen before in the past. She has a history of coronary artery disease as well as myocardial infarction and underwent a cardiac catheterization and stent placement and is on anticoagulation for this. She was seen by her educational interpreter at [facility] and physically appeared to be anemic and had underwent lab work, which did show a low hemoglobin of 5.3. She was given blood and admitted. Upon further questioning, she had reported dark tarry stools and underwent an EGD on 12/09/2018 and found to have a reflux esophagitis between stage II and III as well as a small hiatal hernia and a moderate gastritis. There was a small ulcer of the antrum with an overlying fibrin clot and no bleeding. The ulcer was small at 4 mm in size. Biopsies were negative for malignancy as well as negative for H. pylori. 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 She was again seen in the Emergency Department at [facility] for shortness of breath, weakness, fatigue and dark tarry stools. Again, she was found to be severely anemic with a hemoglobin of 4.9. She is again on anticoagulation with aspirin and Plavix. An EGD was performed on 03/21/2019, which showed a reflux esophagitis stage II, mild to moderate gastritis. There were no ulcers or any active bleeding sources identified at that time. She did well on that admission and was discharged home. She was again admitted for the same type of scenario with weakness, fatigue and hemoglobin of 5.1. We will proceed with an EGD and colonoscopy on this admission. PAST MEDICAL HISTORY: Coronary artery disease, peripheral vascular disease, hypertension, hypercholesterolemia, history of myocardial infarction, migraine headaches, gastroesophageal reflux disease, peptic ulcer disease, alcoholic liver cirrhosis, degenerative joint disease. PAST SURGICAL HISTORY: Cardiac catheterization, stent placement, laparoscopic cholecystectomy. ALLERGIES: No known drug allergies. MEDICATIONS: 1. Aspirin 81 mg daily. 2. Isosorbide 30 mg daily. 3. Losartan 100 mg daily. 4. Protonix 40 mg daily. 5. Carvedilol 3.125 mg b.i.d. 6. Senna 8.6 mg daily. 7. Albuterol 2.5 mg p.r.n. 8. Nitroglycerin 0.4 mg p.r.n. 9. Plavix 75 mg daily. 10. Amlodipine 10 mg daily. 11. Budesonide 10.2 grams 2 puffs b.i.d. p.r.n. 12. Iron 325 mg every other day. 13. Guaifenesin 1200 mg b.i.d. 14. Carafate 1 gram q.i.d. 15. Zinc 50 mg daily. SOCIAL HISTORY: Previous smoke, greater than 80 pack years, quit in 2016. History of alcohol abuse and liver cirrhosis. FAMILY HISTORY: Noncontributory. REVIEW OF SYSTEMS: This is a well-nourished female, currently in no acute distress. She is not experiencing any shortness of breath or difficulty breathing. No chest pain, palpitations or diaphoresis. Mild epigastric burning sensation. No hematemesis or coffee ground emesis. She did notice again dark stools; however, again she is on iron. No fever or chills. No recent inadvertent weight loss. All other review of systems negative. PHYSICAL EXAMINATION: VITAL SIGNS: Temperature 97.4, blood pressure 170/77, pulse 88, respirations 38, pulse ox 94% on room air CHEST: Distant breath sounds bilaterally. HEART: Regular, no murmurs. EXTREMITIES: No lower extremity edema, negative Homans sign. HEENT: No scleral icterus. NECK: No cervical lymphadenopathy. ABDOMEN: Soft, nontender, nondistended. SKIN: Warm, dry. LABORATORY DATA: WBC 11.8, hemoglobin 5.1, hematocrit 19, platelets 355, BUN 15, creatinine 1.05. Urinalysis positive for nitrite and leukocyte esterase. ASSESSMENT AND PLAN: A 64-year-old female with recurrent anemia. She does have a history of peptic ulcer disease; however, does also have a history of coronary artery disease and congestive heart failure and history of alcoholic liver cirrhosis. She was found to have an ulcer in 11/2018. However, more recent EGD did not show any ulcerations or any active bleeding sources. We will proceed with an EGD and colonoscopy upon this admission. If nothing is identified and she continues to bleed, we may proceed with a tagged RBC scan. Job ID: [id number] DocumentID: [id number] Dictated Date: 04/26/2019 13:47:22 Cyber Software Engineer Date: 04/26/2019 14:02:19 Dictated By: NED HICKMAN MD
--- NOTE | 2019-04-26 16:03 | History & Physical-Hospitalist ---
History of Present Illness HPI/Chief Complaint The patient is a 63-year-old white female from [place]. She is a patient of Dr. Oscar. She presented to the [facility] emergency room early this morning with complaints of weakness and shortness of breath. She has an ongoing past and present history of GI blood loss. She related that over the last 2 weeks her stools have become dark and then black. Her hemoglobin was found to be 5. She was given 1 unit of uncrossed matched type O blood and transferred here for further transfusion and diagnostic studies. She reports no abdominal pain. Source: patient Date Seen 04/26/19 Time Seen by a Provider: 16:00 Attending Physician Morgan Curiel MD PCP No,Local Physician Referring Physician Date of Admission Apr 26, 2019 at 09:47 Home Medications & Allergies Home Medications Reviewed patient Home Medication Reconciliation performed by pharmacy medication reconciliations instructional support technician and/or nursing. Patients Allergies have been reviewed. Allergies Allergies Coded Allergies No Known Drug Allergies (Unverified05/05/19) Past Odallop-Zzpsay-Dqetbe Hx Past Med/Social Hx: Reviewed Nursing Past Med/Soc Hx Patient Social History Alcohol Use: Denies Use Recreational Drug Use: No Drug of Choice: HX ETOH ABUSE Smoking Status: Former Smoker Former Smoker, Quit: Nov 22, 2015 Type Used: Cigarettes 2nd Hand Smoke Exposure: No Recent Foreign Travel: No Contact w/other who traveled: No Recent Hopitalizations: No Recent Infectious Disease Expo: No Immunizations Up To Date Date of Pneumonia Vaccine: Dec 11, 2018 Date of Influenza Vaccine: Aug 22, 2018 Seasonal Allergies Seasonal Allergies: No Past Medical History Surgeries: Cardiac, Coronary Stent, Gallbladder Cardiac: Coronary Artery Disease, Heart Attack, Heart Murmur, High Cholesterol, Hypertension, Peripheral Vascular Neurological: Headaches /Migraines Reproductive: Yes (CERVICAL DYSPLASIA. --S/P CRYOTHERAPY AND CONIZATION) Menopausal Genitourinary: Renal Failure Gastrointestinal: Gastroesophageal Reflux, Liver Disease/Jaundice, Cirrhosis Peptic ulcer disease November [address] Sanchez Musculoskeletal: Arthritis, Chronic Back Pain History of Blood Disorders: Yes (ANEMIA --CURRENT PROBLEM STARTING 12/08/18) Family History Reviewed Nursing Family Hx Heart Disease, Diabetes Review of Systems Constitutional: see HPI EENTM: no symptoms reported Respiratory: dyspnea on exertion, short of breath Cardiovascular: no symptoms reported Gastrointestinal: melena Genitourinary: no symptoms reported Musculoskeletal: muscle weakness Skin: no symptoms reported Psychiatric/Neurological: No Symptoms Reported Physical Exam Physical Exam Vital Signs Vital Signs - First Documented 05/01/19 00:10 Temp 98.3 Pulse 71 Resp 20 B/P (MAP) 164/74 (104) Pulse Ox 99 O2 Delivery Nasal Cannula O2 Flow Rate 3.00 Capillary Refill : Less Than 3 Seconds Height, Weight, BMI Height: 5'4.00" Weight: 160lbs. 2.0oz. 72.955856to; 27.5 BMI Method:Stated General Appearance: Mild Distress, Other (appears older than stated age) Eyes: Bilateral Eye Normal Inspection HEENT: Other (buccal mucosa pale) Neck: Full Range of Motion Respiratory: Chest Non Tender, Lungs Clear, Normal Breath Sounds, No Accessory Muscle Use, No Respiratory Distress Cardiovascular: Regular Rate, Rhythm Gastrointestinal: Normal Bowel Sounds, No Organomegaly, No Pulsatile Mass, Non Tender, Soft Back: Normal Inspection, No CVA Tenderness, No Vertebral Tenderness Extremity: Normal Capillary Refill, Normal Inspection, Normal Range of Motion Neurologic/Psychiatric: Alert, Oriented x3, No Motor/Sensory Deficits, Normal Mood/Affect Skin: Normal Color, Warm/Dry Lymphatic: No Adenopathy Results Results/Procedures Labs Patient resulted labs reviewed. Assessment/Plan Admission Diagnosis 1.acute on chronic anemia. 2.suspected GI blood loss. Admission Status: Observation Clinical Quality Measures DVT/VTE Risk/Contraindication: Risk Factor Score Per Nursin RFS Level Per Nursing on Admit: 4+=Very High MORGAN CURIEL MD Apr 26, 2019 16:03
[2019-04-26 18:49] LABS: HEMOGLOBIN 8.2 G/DL (11.5-16.0)
--- NOTE | 2019-04-26 21:24 | NUR ---
pt stating she is having lower back pain & is requesting pain medications this rn called dr. brambila & spoke with him about this pain new orders received-give other half (150ml) of mag citrate now, continue protonix drip as ordered, pt is be npo at 0200, normal saline iv, tylenol & lortab orders received.
[2019-04-26] MEDS: HYDROcodone/APAP 7.5 MG/325 MG (LORTAB, LORCET PLUS) TABLET PO PRN (21:34)
[2019-04-26] MEDS: CIPROFLOXACIN IV 400MG/200ML 200 ML IV SCH (21:36)
[2019-04-26] MEDS: NS IV 1000 ML 1,000 ML IV SCH (21:36)
[2019-04-27] VITALS (24 sets, daily range): BP systolic 97–184; BP diastolic 65–90
[2019-04-27] MEDS: HYDROcodone/APAP 7.5 MG/325 MG (LORTAB, LORCET PLUS) TABLET PO PRN ×2 (01:50→06:23)
[2019-04-27 03:45] LABS: BASOPHILS % (AUTO) 0 % (0-10); EOSINOPHILS # (AUTO) 0.1 10^3/uL (0.0-0.3); EOSINOPHILS % (AUTO) 1 % (0-10); HEMATOCRIT 28 % (35-52); HEMOGLOBIN 8.1 G/DL (11.5-16.0); LYMPHOCYTES # (AUTO) 1.7 X 10^3 (1.0-4.0); LYMPHOCYTES % (AUTO) 16 % (12-44); MEAN CORPUSCULAR HEMOGLOBIN 23 PG (25-34); MEAN CORPUSCULAR HGB CONC 29 G/DL (32-36); MEAN CORPUSCULAR VOLUME 79 FL (80-99); MEAN PLATELET VOLUME 10.6 FL (7.4-10.4); MONOCYTES # (AUTO) 0.5 X 10^3 (0.0-1.0); MONOCYTES % (AUTO) 5 % (0-12); NEUTROPHILS # (AUTO) 7.9 X 10^3 (1.8-7.8); NEUTROPHILS % (AUTO) 78 % (42-75); PLATELET COUNT 318 10^3/uL (130-400); WHITE BLOOD COUNT 10.2 10^3/uL (4.3-11.0)
[2019-04-27 04:06] LABS: CREATININE SERUM 0.96 MG/DL (0.60-1.30); MAGNESIUM 2.4 MG/DL (1.8-2.4); PHOSPHORUS 3.5 MG/DL (2.3-4.7); POTASSIUM 3.2 MMOL/L (3.6-5.0)
--- NOTE | 2019-04-27 07:35 | NUR ---
0619-pt continues to have dark liquid stools, pt is having slight crackles to auscultation of the lungs, requesting lortab for back pain this rn called dr. brambila-ordered to decrease iv fluids ns @ 30ml/hr, give 1 tap water enema, may have prn lortab 0645-this rn gave enema-pt tolerated well.
--- NOTE | 2019-04-27 07:49 | Diagnostic Imaging Report ---
INDICATION: Dyspnea. Comparison made with prior examination 04/26/2019 FINDINGS: There is cardiomegaly. There is venous congestion. Right base infiltrate and small right pleural effusion. There is no pneumothorax. Mediastinum is unremarkable. IMPRESSION: Persistent right basilar atelectasis and/or pneumonitis and small right pleural effusion. Cardiomegaly and some central pulmonary venous congestion. Dictated by: Dictated on workstation # [id number]
[2019-04-27] MEDS: CIPROFLOXACIN IV 400MG/200ML 200 ML IV SCH ×2 (09:15→19:51)
--- NOTE | 2019-04-27 10:00 | Conscious Sedation/ASA ---
Conscious Sedation Pre-Proced Time 09:00 ASA Score 3 For ASA 3 and 4: Consider anesthesia and medical clearance. Also, for patients with a history of failed moderate sedation consider anesthesia. Airway Lungs Heart ASA score ASA 1: a normal healthy patient ASA 2: a patient with a mild systemic disease (mid diabetes, controlled hypertension, obesity ASA 3: a patient with a severe systemic disease that limits activity (angina, COPD, prior Myocardial infarction) ASA 4: a patient with an incapacitating disease that is a constant threat to life (CHF, renal failure) ASA 5: a moribund patient not expected to survive 24 hrs. (ruptured aneurysm) ASA 6: a declared brain- patient whose organs are being harvested. For emergent operations, add the letter E after the classification Mallampati Classification Grade 2 Sedation Plan Analgesia, Amnesia, Plan communicated to team members, Discussed options with patient/fam, Discussed risks with patient/fam The patient is an appropriate candidate to undergo the planned procedure, sedation, and anesthesia. The patient immediately re-assessed prior to indication. NED HICKMAN MD Apr 27, 2019 10:00
--- NOTE | 2019-04-27 10:01 | Progress Note-Pre Operative ---
Pre-Operative Progress Note H&P Reviewed The H&P was reviewed, patient examined and no changes noted. Date Seen by Provider: Apr 27, 2019 Time Seen by Provider: 09:00 Date H&P Reviewed: Apr 27, 2019 Time H&P Reviewed: 09:00 Pre-Operative Diagnosis: anemia, hx GILDARDOD NED HICKMAN MD Apr 27, 2019 10:01
[2019-04-27] MEDS ORDERED: fentaNYL INJECTION 100 MCG/2 ML AMP ONE ×2 (14:24→14:25)
[2019-04-27] MEDS ORDERED: LIDOCAINE JELLY 2% 6 ML SYRINGE ONE (14:24)
[2019-04-27] MEDS ORDERED: HURRICAINE EXT TUBE (BENZOCAINE) ONE (14:25)
[2019-04-27] MEDS ORDERED: MIDAZOLAM 2 MG/2 ML (VERSED) VIAL ONE ×5 (14:25)
--- NOTE | 2019-04-27 16:13 | Progress Note-Post Operative ---
Post-Operative Progess Note Surgeon (s)/Financial Services Intern (s) Surgeon NED HICKMAN MD Financial Services Intern: young Pre-Operative Diagnosis anemia, hx PUD Post-Operative Diagnosis reflux esophagitis(stage 2), small HH(1.5cm), moderate gastritis, no active bleed. chronic stage 2 ext and int hemorrhoids, small sigmoid HP polyp. no active bleed. Procedure & Operative Findings Date of Procedure 04/27/19 Procedure Performed/Findings EGD with bx. Colonoscopy with bx. Anesthesia Type cs Estimated Blood Loss Estimated blood loss (mL): minimal Specimens/Packing Specimens Removed ge jxn, antrum, sigmoid polyp. NED HICKMAN MD Apr 27, 2019 16:13
[2019-04-27] MEDS ORDERED: fentaNYL INJECTION 100 MCG/2 ML AMP IVP ONE (17:00)
[2019-04-27] MEDS ORDERED: LIDOCAINE JELLY 2% 6 ML SYRINGE MM PRN (17:00)
[2019-04-27] MEDS ORDERED: HURRICAINE EXT TUBE (BENZOCAINE) XX PRN (17:00)
[2019-04-27] MEDS ORDERED: MIDAZOLAM 2 MG/2 ML (VERSED) VIAL IVP ONE (17:00)
[2019-04-28] VITALS (18 sets, daily range): BP systolic 126–190; BP diastolic 63–118
--- NOTE | 2019-04-28 00:26 | OPERATIVE REPORT ---
DATE OF SERVICE: 04/27/2019 ADMITTING PHYSICIAN: Morgan Gorman MD PREOPERATIVE DIAGNOSIS: Recurrent anemia with history of peptic ulcer disease. POSTOPERATIVE DIAGNOSES: Reflux esophagitis stage II, small hiatal hernia approximately 1.5 cm in size, moderate gastritis. Pylorus and duodenum appeared normal with no ulcerations as well as no active bleeding sources. Chronic stage II external and internal hemorrhoids, small hyperplastic polyp of the sigmoid colon. No active bleeding sources. PROCEDURE: EGD with biopsy, colonoscopy with biopsy. SURGEON: Ned Sanchez MD ANESTHESIA: Conscious sedation. ESTIMATED BLOOD LOSS: Minimal. FINDINGS: As above in the postop. DISPOSITION: The patient tolerated the procedure well. INDICATIONS: The patient is a 64-year-old female who we have seen before in the past. She has a history of coronary artery disease as well as a myocardial infarction and underwent cardiac catheterization and stent placement and is on anticoagulation for this. She was seen by her exhaust tender at [facility] and physically appeared anemic and underwent lab work, which did show a low hemoglobin of 5.3. She was admitted and given blood. Upon further questioning, she had reported dark tarry stools and underwent EGD on 12/09/2018 and found to have a reflux esophagitis between stage II and III, small hiatal hernia as well as a moderate gastritis. There was also a small ulcer of the antrum with an overlying fibrin clot and no active bleed. The ulcer was small and 4 mm in size. The biopsy was negative for malignancy as well as negative for H. pylori. Biopsies of the GE junction were positive for Bocanegra esophagus. She was seen in the Emergency Department at [place] for shortness of breath, fatigue and dark tarry stools again. She was found to be anemic with hemoglobin of 4.9. She again was on anticoagulation with aspirin and Plavix. An EGD was performed on 03/21/2019, which showed reflux esophagitis, moderate gastritis; however, no ulcers or any bleeding source identified on that admission and she was discharged home. She was admitted again with weakness, fatigue and found to be anemic with a hemoglobin of 5.1. It is unsure when her last colonoscopy was and we will proceed with an EGD and colonoscopy on this admission. DESCRIPTION OF PROCEDURE: The patient was maintained in the ICU under monitor. We then proceeded with conscious sedation anesthesia and the mouthpiece was applied. Endoscope was placed in the mouth, visualizing the pharynx and hypopharyngeal region. Vocal cords, epiglottis and vallecula identified and appeared to be normal. The endoscope was gently intubated at the esophageal opening and esophagus insufflated. The endoscope was then advanced to the first, second and third portion of the esophagus at the level of the GE junction, a reflux esophagitis stage II identified. There were no ulcers or strictures identified in this region. A biopsy was taken using forceps with visualization of good hemostasis. The endoscope was then advanced into the stomach and endoscope retroflexed, visualizing a small hiatal hernia approximately 1.5 cm in size. There was a moderate severity gastritis of the antrum. There were no formal ulcerations, polyps, or any neoplasms as well as no active bleeding sources. A biopsy was taken of the antrum with forceps with visualization of good hemostasis. The endoscope was then advanced to the pylorus and the first and second portion of the duodenum, which appeared normal with no ulcerations or any bleeding source identified. The endoscope was then slowly withdrawn while taking a second look and suctioning of residual air with no additional findings. The patient tolerated this portion of the procedure well. We will recommend continued medical management with the necessary lifestyle and diet accommodation including small and more frequent meals, avoidance of eating at night as well as head elevation while lying supine. We feel that at times she does become noncompliant with medications and we had started her on a PPI acid cake batter mixer; however, the medication reconciliation does not show any acid reducers at this time and she may have not filled the prescription or discontinue the medication. We feel that she does have peptic ulcer disease; however, she does lose blood, become anemic; however, by the time, she does present anything that was bleeding has healed. We will again start her on Protonix 40 mg daily. Under the same anesthesia, we then proceeded with colonoscopy portion of the procedure. A digital rectal examination was performed, which revealed mild chronic stage II external and internal hemorrhoids, not actively edematous nor inflamed and no bleeding. Normal sphincter tone was felt and there are no palpable masses. The endoscope was then intubated to the anus and rectum gently insufflated. The endoscope was then advanced through the valves of Banuelos into the rectum with no polyps or any neoplasms identified. The endoscope was then advanced through the sigmoid colon where a small hyperplastic polyp approximately 2 mm in size was identified. This was biopsied and destroyed using forceps and electrocautery with visualization of good hemostasis. The endoscope was then advanced through the remainder of the sigmoid colon, descending colon, transverse and ascending colon to the cecum. These segments were normal. There were no polyps or any neoplasms identified throughout the colon. There were no other lesions identified throughout the colon or rectum and there were no active bleeding sources identified. The endoscope was then slowly withdrawn while taking a second look and suctioning of residual air with no additional findings. The patient tolerated the procedure well. We will recommend conservative management with a high fiber diet with 25 grams of fiber per day as well as significant amounts of water daily to promote soft stools on a regular daily basis. It does not appear that she has a family history of colon cancer and also does not appear that she does have any lower gastrointestinal bleeding signs or symptoms and at this time, she may wait 10 years for next colonoscopy; however, sooner if she becomes symptomatic. Job ID: [id number] DocumentID: [id number] Dictated Date: 04/27/2019 16:54:44 Commodity Merchant Date: 04/28/2019 00:25:33 Dictated By: NED SANCHEZ MD
[2019-04-28] MEDS: HYDROcodone/APAP 7.5 MG/325 MG (LORTAB, LORCET PLUS) TABLET PO PRN (03:47)
[2019-04-28] MEDS: NS IV 1000 ML 1,000 ML IV SCH (03:48)
[2019-04-28 04:06] LABS: BASOPHILS % (AUTO) 0 % (0-10); EOSINOPHILS # (AUTO) 0.1 10^3/uL (0.0-0.3); EOSINOPHILS % (AUTO) 1 % (0-10); HEMATOCRIT 27 % (35-52); HEMOGLOBIN 7.9 G/DL (11.5-16.0); LYMPHOCYTES # (AUTO) 1.5 X 10^3 (1.0-4.0); LYMPHOCYTES % (AUTO) 14 % (12-44); MEAN CORPUSCULAR HEMOGLOBIN 23 PG (25-34); MEAN CORPUSCULAR HGB CONC 29 G/DL (32-36); MEAN CORPUSCULAR VOLUME 80 FL (80-99); MEAN PLATELET VOLUME 10.8 FL (7.4-10.4); MONOCYTES # (AUTO) 0.8 X 10^3 (0.0-1.0); MONOCYTES % (AUTO) 7 % (0-12); NEUTROPHILS # (AUTO) 8.1 X 10^3 (1.8-7.8); NEUTROPHILS % (AUTO) 77 % (42-75); PLATELET COUNT 283 10^3/uL (130-400); RED CELL DISTRIBUTION WIDTH 17.8 % (10.0-14.5); WHITE BLOOD COUNT 10.4 10^3/uL (4.3-11.0)
[2019-04-28 04:26] LABS: BUN/CREATININE RATIO 18; CALCIUM 8.5 MG/DL (8.5-10.1); CARBON DIOXIDE 19 MMOL/L (21-32); CHLORIDE 104 MMOL/L (98-107); CREATININE SERUM 0.93 MG/DL (0.60-1.30); GFR ESTIMATED > 60; GLUCOSE 119 MG/DL (70-105); MAGNESIUM 2.3 MG/DL (1.8-2.4); PHOSPHORUS 2.7 MG/DL (2.3-4.7); POTASSIUM 3.5 MMOL/L (3.6-5.0); SODIUM 135 MMOL/L (135-145)
--- NOTE | 2019-04-28 07:09 | Diagnostic Imaging Report ---
INDICATION: Shortness of air. Anemia. GI bleed. COMPARISON: 04/27/2019 FINDINGS: Single frontal radiographic view of the chest was obtained and shows stable [id number] cardiomegaly and moderate pulmonary vascular congestion. There is also diffuse stable prominence of the interstitium consistent with probable interstitial pulmonary edema. Mild right basilar effusion and associated right basilar atelectasis is also noted. Overall, aeration is stable compared to prior exam. There is no pneumothorax on either side. Bony structures show no adverse interval change. IMPRESSION: 1. Stable examination showing cardiomegaly with sequela of CHF including interstitial pulmonary edema and small right basilar effusion. Dictated by: Dictated on workstation # [id number]
[2019-04-28] MEDS: CIPROFLOXACIN IV 400MG/200ML 200 ML IV SCH (07:51)
[2019-04-28] MEDS ORDERED: cefTRIAXone FOR IV USE 1,000 MG in WATER (STERILE) FOR INJECTION 10 ML IV SCH (11:15)
--- NOTE | 2019-04-28 13:29 | Progress Note-Hospitalist ---
Progress Note Progress Notes/Assess & Plan Date Seen 04/28/19 Time Seen by Provider: 13:26 Assessment & Plan Upper and lower endoscopy from yesterday revealed only minor abnormalities and does not completely explain the degree of anemia. The patient reports that she has taken iron in the past. Her CBC with suggest that she has iron deficiency anemia in that she has hypochromia and microcytic RBCs. She will be moved to e floor to ambulate with a hoped to discharge soon. Physical exam: She looks a bit harried an older than stated age. Lungs show distant breath sounds. CV is regular. Abdomen soft. Impression: Severe anemia. 2.iron deficiency. 3.COPD. Plan: Transfer as above Focused Exam Lactate Level 04/26/19 07:50: Lactic Acid Level 1.56 DEON CURIEL MD Apr 28, 2019 13:29
[2019-04-28 13:49] LABS: ABSOLUTE RETIC # 112 10e9/L (24-90); BASOPHILS % (AUTO) 0 % (0-10); EOSINOPHILS % (AUTO) 0 % (0-10); HEMATOCRIT 27 % (35-52); HEMOGLOBIN 7.8 G/DL (11.5-16.0); LYMPHOCYTES # (AUTO) 1.4 X 10^3 (1.0-4.0); LYMPHOCYTES % (AUTO) 13 % (12-44); MEAN CORPUSCULAR HEMOGLOBIN 24 PG (25-34); MEAN CORPUSCULAR HGB CONC 29 G/DL (32-36); MEAN CORPUSCULAR VOLUME 80 FL (80-99); MONOCYTES # (AUTO) 0.6 X 10^3 (0.0-1.0); MONOCYTES % (AUTO) 6 % (0-12); NEUTROPHILS # (AUTO) 8.2 X 10^3 (1.8-7.8); NEUTROPHILS % (AUTO) 80 % (42-75); PLATELET COUNT 272 10^3/uL (130-400); RETICULOCYTE % 3.38 % (0.50-2.40); WHITE BLOOD COUNT 10.2 10^3/uL (4.3-11.0)
--- NOTE | 2019-04-28 14:20 | NUR ---
Pt transferred to [facility] at this time. Phone report called to LU Trevino who will assume pt care at this time. VSS upon transfer. Personal belongings with pt at time of transfer.
--- NOTE | 2019-04-28 14:25 | NUR ---
Pt to room 411. Report received from LU Conti. Agree with previous assessment.
[2019-04-28 14:43] LABS: LYMPHOCYTES % (MANUAL) 11 %; NEUTROPHILS % (MANUAL) 89 %
[2019-04-28 14:45] LABS: ANISOCYTOSIS SLIGHT; HYPERSEGMENTED NEUT MODERATE; HYPOCHROMASIA MODERATE; NUCLEATED RED BLOOD CELLS 2
[2019-04-28] MEDS: ACETAMINOPHEN 325 MG TABLET PO PRN ×2 (16:41→23:48)
[2019-04-29 04:00] VITALS: BP 149/75
[2019-04-29 08:00] VITALS: BP 150/75
--- NOTE | 2019-04-29 08:34 | NUR ---
DUE TO ABOVE O2 SAT O2 WAS DECREASED FROM 3 L TO 2 L NC, WILL INFORM RN OF THIS CHANGE AND LET THEM KNOW O2 CAN CONTINUE TO BE TITRATED DUE TO O2 ORDER IS TKS GREATER THAN 88% 0-4 L
--- NOTE | 2019-04-29 10:23 | Progress Note-Hospitalist ---
Subjective HPI/CC On Admission Date Seen by Provider: Apr 29, 2019 Time Seen by Provider: 10:00 The patient is a 63-year-old white female from [place]. She is a patient of Dr. Oscar. She presented to the [facility] emergency room early this morning with complaints of weakness and shortness of breath. She has an ongoing past and present history of GI blood loss. She related that over the last 2 weeks her stools have become dark and then black. Her hemoglobin was found to be 5. She was given 1 unit of uncrossed matched type O blood and transferred here for further transfusion and diagnostic studies. She reports no abdominal pain. Subjective/Events-last exam Patient denies having any pain. She has not been started on her home medications. She is day number 3 Rocephin for urinary tract infection. Labs have not been drawn yet this morning. She is on 3 L by nasal cannula but does not wear oxygen at home. EGD and colonoscopy were largely unrevealing except for some reflux esophagitis and some small hemorrhoids and a small polyp but no evidence of recent bleeding. Reticulocyte count is high reflecting active bone marrow. Review of Systems Neurological: Weakness Objective Exam Vital Signs Vital Signs Date Time Temp Pulse Resp B/P (MAP) Pulse Ox O2 Delivery O2 Flow Rate FiO2 04/30/19 18:26 Nasal Cannula 2.00 04/30/19 15:40 98.2 64 20 138/63 (88) 99 Capillary Refill : Less Than 3 Seconds General Appearance: No Apparent Distress HEENT: Normal ENT Inspection Neck: Normal Inspection, Supple Respiratory: Chest Non Tender, Lungs Clear, Normal Breath Sounds, No Accessory Muscle Use Cardiovascular: Regular Rate, Rhythm, Systolic Murmur Gastrointestinal: Normal Bowel Sounds, Non Tender, Soft Back: Normal Inspection Extremity: Pedal Edema Neurologic/Psychiatric: Alert, Oriented x3, No Motor/Sensory Deficits, Normal Mood/Affect Skin: Pallor Lymphatic: No Adenopathy Results/Procedures Lab Laboratory Tests 04/30/19 10:27 Patient resulted labs reviewed. Imaging: Reviewed Imaging Report Assessment/Plan Assessment and Plan Assess & Plan/Chief Complaint Severe anemia, status post EGD and colonoscopy that were largely unrevealing. Consider angiodysplasia of the small intestines. Elevated BNP will try and obtain echocardiogram. Urinary tract infection on Rocephin Hypokalemia Reflux esophagitis Diagnosis/Problems Diagnosis/Problems (1) Blood loss anemia Status: Acute (2) COPD (chronic obstructive pulmonary disease) Status: Chronic (3) Transfusion of blood during current hospitalisation Status: Acute (4) Acute exacerbation of congestive heart failure Status: Acute Qualifiers: Heart failure type: combined systolic and diastolic Qualified Codes: I50.43 - Acute on chronic combined systolic (congestive) and diastolic (congestive) heart failure Clinical Quality Measures DVT/VTE Risk/Contraindication: Risk Factor Score Per Nursin RFS Level Per Nursing on Admit: 4+=Very High CHRISTOS ETIENNE MD Apr 29, 2019 10:23
[2019-04-29] MEDS ORDERED: NITROGLYCERIN 0.4 MG SL TABS BTL 25'S SL PRN (10:30)
[2019-04-29] MEDS ORDERED: RT-ALBUTEROL SULF 2.5 MG/3 ML PRE-MIX VIAL INH PRN (10:30)
[2019-04-29] MEDS ORDERED: guaiFENesin (MUCINEX) 600 MG TAB PO PRN (11:00)
--- NOTE | 2019-04-29 11:14 | NUR ---
SpO2 91% on 2 lpm nasal cannula. Breath sounds clear. Addendum: 04/29/19 at 1115 by KE AVILA RT Amended: Links added.
[2019-04-29 11:48] LABS: BASOPHILS % (AUTO) 0 % (0-10); EOSINOPHILS # (AUTO) 0.1 10^3/uL (0.0-0.3); EOSINOPHILS % (AUTO) 0 % (0-10); HEMATOCRIT 27 % (35-52); HEMOGLOBIN 7.9 G/DL (11.5-16.0); LYMPHOCYTES # (AUTO) 1.6 X 10^3 (1.0-4.0); LYMPHOCYTES % (AUTO) 14 % (12-44); MEAN CORPUSCULAR HEMOGLOBIN 24 PG (25-34); MEAN CORPUSCULAR HGB CONC 30 G/DL (32-36); MEAN CORPUSCULAR VOLUME 79 FL (80-99); MEAN PLATELET VOLUME 10.7 FL (7.4-10.4); MONOCYTES # (AUTO) 0.9 X 10^3 (0.0-1.0); MONOCYTES % (AUTO) 8 % (0-12); NEUTROPHILS # (AUTO) 8.6 X 10^3 (1.8-7.8); NEUTROPHILS % (AUTO) 77 % (42-75); PLATELET COUNT 279 10^3/uL (130-400); RED CELL DISTRIBUTION WIDTH 18.7 % (10.0-14.5); WHITE BLOOD COUNT 11.2 10^3/uL (4.3-11.0)
[2019-04-29 12:00] VITALS: BP 162/78
[2019-04-29 12:16] LABS: ALBUMIN 3.8 GM/DL (3.2-4.5); BILIRUBIN,TOTAL 0.7 MG/DL (0.1-1.0); CALCIUM 9.1 MG/DL (8.5-10.1); CREATININE SERUM 1.16 MG/DL (0.60-1.30); POTASSIUM 3.4 MMOL/L (3.6-5.0); TOTAL PROTEIN 6.4 GM/DL (6.4-8.2)
[2019-04-29] MEDS: cefTRIAXone FOR IV USE 1,000 MG in WATER (STERILE) FOR INJECTION 10 ML IV SCH (12:45)
[2019-04-29 15:40] VITALS: BP 137/75
[2019-04-29] MEDS: ACETAMINOPHEN 325 MG TABLET PO PRN (15:50)
[2019-04-29] MEDS: HYDROcodone/APAP 7.5 MG/325 MG (LORTAB, LORCET PLUS) TABLET PO PRN (20:24)
[2019-04-29] MEDS: CARVEDILOL 3.125 MG (COREG) TABLET PO SCH (20:25)
[2019-04-29 23:55] VITALS: BP 129/58
[2019-04-30] MEDS: HYDROcodone/APAP 7.5 MG/325 MG (LORTAB, LORCET PLUS) TABLET PO PRN ×3 (03:17→20:57)
[2019-04-30 08:00] VITALS: BP 177/76
[2019-04-30] MEDS: ISOSORBIDE MONONITRATE 30 MG (IMDUR) TAB PO SCH (08:12)
[2019-04-30] MEDS: LOSARTAN 100 MG (COZAAR) TABLET PO SCH (08:12)
[2019-04-30] MEDS: CARVEDILOL 3.125 MG (COREG) TABLET PO SCH (08:12)
[2019-04-30] MEDS: PANTOPRAZOLE 40 MG (PROTONIX) TAB PO SCH (08:12)
[2019-04-30] MEDS: ATORVASTATIN 80 MG (LIPITOR) TABLET PO SCH (08:12)
[2019-04-30 10:35] LABS: BASOPHILS % (AUTO) 0 % (0-10); EOSINOPHILS # (AUTO) 0.1 10^3/uL (0.0-0.3); EOSINOPHILS % (AUTO) 1 % (0-10); HEMATOCRIT 25 % (35-52); HEMOGLOBIN 7.3 G/DL (11.5-16.0); LYMPHOCYTES # (AUTO) 1.1 X 10^3 (1.0-4.0); LYMPHOCYTES % (AUTO) 12 % (12-44); MEAN CORPUSCULAR HEMOGLOBIN 23 PG (25-34); MEAN CORPUSCULAR HGB CONC 29 G/DL (32-36); MEAN CORPUSCULAR VOLUME 80 FL (80-99); MEAN PLATELET VOLUME 10.2 FL (7.4-10.4); MONOCYTES % (AUTO) 10 % (0-12); NEUTROPHILS # (AUTO) 7.5 X 10^3 (1.8-7.8); NEUTROPHILS % (AUTO) 78 % (42-75); PLATELET COUNT 199 10^3/uL (130-400); RED CELL DISTRIBUTION WIDTH 18.6 % (10.0-14.5); WHITE BLOOD COUNT 9.6 10^3/uL (4.3-11.0)
[2019-04-30 11:07] LABS: CALCIUM 8.5 MG/DL (8.5-10.1); CREATININE SERUM 1.25 MG/DL (0.60-1.30); POTASSIUM 3.2 MMOL/L (3.6-5.0)
--- NOTE | 2019-04-30 11:25 | Progress Note-Hospitalist ---
Subjective HPI/CC On Admission Date Seen by Provider: Apr 30, 2019 Time Seen by Provider: 11:00 The patient is a 63-year-old white female from [place]. She is a patient of Dr. Oscar. She presented to the [facility] emergency room early this morning with complaints of weakness and shortness of breath. She has an ongoing past and present history of GI blood loss. She related that over the last 2 weeks her stools have become dark and then black. Her hemoglobin was found to be 5. She was given 1 unit of uncrossed matched type O blood and transferred here for further transfusion and diagnostic studies. She reports no abdominal pain. Subjective/Events-last exam Patient complains of dysuria and frequency. She had had an indwelling catheter. She does note that she is short of breath and somewhat weak and her oxygen saturations drop when she is off the oxygen. Her continuous conveyor screen drier is up at [facility]. She also has a lung doctor there as well. She has peripheral vascular disease and has 2 stents in the left iliac artery. BNP is down to 9000, blood pressure is up. Review of Systems Pulmonary: Dyspnea Neurological: Weakness Objective Exam Vital Signs Vital Signs Date Time Temp Pulse Resp B/P (MAP) Pulse Ox O2 Delivery O2 Flow Rate FiO2 04/30/19 18:26 Nasal Cannula 2.00 04/30/19 15:40 98.2 64 20 138/63 (88) 99 Capillary Refill : Less Than 3 SecondsLess Than 3 Seconds General Appearance: No Apparent Distress HEENT: Normal ENT Inspection Neck: Normal Inspection, Supple Respiratory: Chest Non Tender, Lungs Clear, Normal Breath Sounds, No Accessory Muscle Use Cardiovascular: Regular Rate, Rhythm, Systolic Murmur Gastrointestinal: Normal Bowel Sounds, Non Tender, Soft Back: Normal Inspection Extremity: Pedal Edema Neurologic/Psychiatric: Alert, Oriented x3, No Motor/Sensory Deficits, Normal Mood/Affect Skin: Pallor Lymphatic: No Adenopathy Results/Procedures Lab Laboratory Tests 04/30/19 10:27 Patient resulted labs reviewed. Imaging: Reviewed Imaging Report Assessment/Plan Assessment and Plan Assess & Plan/Chief Complaint Severe anemia, status post EGD and colonoscopy that were largely unrevealing. Consider angiodysplasia of the small intestines. Elevated BNP will try and obtain echocardiogram. We'll give 1 dose of Lasix today Urinary tract infection on Rocephin, currently symptomatic we'll recheck a UA Hypokalemia-replace Reflux esophagitis Hypoxia we'll check an O2 sat with exercise on room air, chest x-ray 2020: cxr shows increasing right pleural effusion. O2 sat on RA not recorded/or done. UA is negative. Diagnosis/Problems Diagnosis/Problems (1) Blood loss anemia Status: Acute (2) COPD (chronic obstructive pulmonary disease) Status: Chronic (3) Transfusion of blood during current hospitalisation Status: Acute (4) Acute exacerbation of congestive heart failure Status: Acute Qualifiers: Heart failure type: combined systolic and diastolic Qualified Codes: I50.43 - Acute on chronic combined systolic (congestive) and diastolic (congestive) heart failure Clinical Quality Measures DVT/VTE Risk/Contraindication: Risk Factor Score Per Nursin RFS Level Per Nursing on Admit: 4+=Very High CHRISTOS ETIENNE MD Apr 30, 2019 11:25
[2019-04-30] MEDS ORDERED: FUROSEMIDE 40 MG/4 ML INJ (LASIX) IVP NR (11:30)
[2019-04-30] MEDS ORDERED: KCL 20 MEQ TAB (K-DUR) PO NR (11:30)
[2019-04-30] MEDS: cefTRIAXone FOR IV USE 1,000 MG in WATER (STERILE) FOR INJECTION 10 ML IV SCH (11:56)
--- NOTE | 2019-04-30 13:30 | NUR ---
Patient was on 2 L NC and was satting 95%, O2 was removed for 51 mins and patient had desatted to 82%, so RT placed 2 L NC back on patient and O2 Sat came up to 91% and remained up. Patient is requiring 2 L NC at rest and on exertion at this time.
--- NOTE | 2019-04-30 13:47 | Diagnostic Imaging Report ---
EXAM: CHEST PA/LAT (2 VIEW) INDICATION: Shortness of air COMPARISON: Chest radiograph 04/28/2019. FINDINGS: Moderate, increasing right pleural effusion. Atelectasis in the right lung base. Cardiomegaly. Diffuse interstitial opacities suggesting a degree of interstitial edema. No pneumothorax. No acute osseous findings. IMPRESSION: 1. Increasing moderate right pleural effusion. 2. Cardiomegaly with interstitial opacities suggesting interstitial edema. Dictated by: Dictated on workstation # [id number]
[2019-04-30 15:38] LABS: BILIRUBIN,URINE NEGATIVE (NEGATIVE); CLARITY,URINE CLEAR; COLOR,URINE YELLOW; GLUCOSE, URINE (UA) NEGATIVE (NEGATIVE); KETONES,URINE NEGATIVE (NEGATIVE); LEUKOCYTE ESTERASE ,URINE NEGATIVE (NEGATIVE); NITRITE,URINE NEGATIVE (NEGATIVE); PH,URINE 7 (5-9); PROTEIN,URINE NEGATIVE (NEGATIVE); UROBILINOGEN,URINE NORMAL (NORMAL)
[2019-04-30 15:40] VITALS: BP 138/63
[2019-04-30 15:43] LABS: BACTERIA,URINE NEGATIVE /HPF
[2019-04-30] MEDS: CARVEDILOL 6.25 MG (COREG) TAB PO SCH (20:58)
[2019-05-01 00:10] VITALS: BP 164/74
[2019-05-01] MEDS: ACETAMINOPHEN 325 MG TABLET PO PRN ×2 (04:41→13:45)
[2019-05-01 06:18] LABS: BASOPHILS % (AUTO) 0 % (0-10); EOSINOPHILS # (AUTO) 0.2 10^3/uL (0.0-0.3); EOSINOPHILS % (AUTO) 2 % (0-10); HEMATOCRIT 26 % (35-52); HEMOGLOBIN 7.5 G/DL (11.5-16.0); LYMPHOCYTES % (AUTO) 10 % (12-44); MEAN CORPUSCULAR HEMOGLOBIN 23 PG (25-34); MEAN CORPUSCULAR HGB CONC 29 G/DL (32-36); MEAN CORPUSCULAR VOLUME 81 FL (80-99); MEAN PLATELET VOLUME 11.2 FL (7.4-10.4); MONOCYTES # (AUTO) 1.2 X 10^3 (0.0-1.0); MONOCYTES % (AUTO) 11 % (0-12); NEUTROPHILS # (AUTO) 7.7 X 10^3 (1.8-7.8); NEUTROPHILS % (AUTO) 76 % (42-75); PLATELET COUNT 189 10^3/uL (130-400); RED CELL DISTRIBUTION WIDTH 18.7 % (10.0-14.5); WHITE BLOOD COUNT 10.1 10^3/uL (4.3-11.0)
[2019-05-01 06:40] LABS: CALCIUM 9.2 MG/DL (8.5-10.1); CREATININE SERUM 1.06 MG/DL (0.60-1.30); POTASSIUM 3.7 MMOL/L (3.6-5.0)
[2019-05-01 08:00] VITALS: BP 181/76
--- NOTE | 2019-05-01 08:09 | Pulmonary Consultation ---
History of Present Illness History of Present Illness Date of Consultation 05/01/19 08:02 Time Seen by Provider: 08:02 Date of Admission History of Present Illness 64yo with hx of CAD, COPD (quit smoking 2015) , GIB requiring transfusions presented to ED secondary to 2 wks of worsening melena. She has had similar prior episodes. Allergies and Home Medications Allergies Coded Allergies: No Known Drug Allergies (Unverified , 04/26/19) Home Medications Acetaminophen 500 Mg Tablet, 1,000 MG PO Q4H PRN for PAIN-MILD, (Reported) Albuterol Sulfate 6.7 Gm Hfa.aer.ad, 2 PUFF INH Q4H PRN for SHORTNESS OF BREATH, (Reported) Ascorbate Calcium 500 Mg Tablet, 500 MG PO DAILY, (Reported) Atorvastatin Calcium 80 Mg Tablet, 80 MG PO DAILY, (Reported) Calcium Carbonate/Vitamin D3 1 Each Tablet, 1 TAB PO DAILY, (Reported) Carvedilol 3.125 Mg Tablet, 3.125 MG PO BID, (Reported) Guaifenesin 1,200 Mg Tab.er.12h, 1,200 MG PO BID PRN for CONGESTION, (Reported) Isosorbide Mononitrate 30 Mg Tab.er.24h, 30 MG PO DAILY, (Reported) Losartan Potassium 100 Mg Tablet, 100 MG PO DAILY, (Reported) Multivitamin 1 Each Tablet, 1 TAB PO DAILY, (Reported) Nitroglycerin 0.4 Mg Tab.subl, 0.4 MG SL UD PRN for CHEST PAIN, (Reported) Pantoprazole Sodium 40 Mg Tablet.dr, 40 MG PO DAILY, (Reported) Sennosides 8.6 Mg Tablet, 8.6 MG PO DAILY PRN for CONSTIPATION-5TH LINE, (Reported) Zinc Gluconate 50 Mg Tablet, 50 MG PO DAILY, (Reported) Past Owprqnw-Vwfpbm-Vzajeb Hx Past Med/Social Hx: Reviewed Nursing Past Med/Soc Hx Patient Social History Alcohol Use: Denies Use Recreational Drug Use: No Drug of Choice: HX ETOH ABUSE Smoking Status: Former Smoker Type Used: Cigarettes Former Smoker, Quit: Nov 22, 2015 2nd Hand Smoke Exposure: No Recent Foreign Travel: No Contact w/Someone Who Travel: No Recent Infectious Disease Expo: No Recent Hopitalizations: No Physical Abuse: No Sexual Abuse: No Mistreated: No Fear: No Immunizations Up To Date Date of Pneumonia Vaccine: Dec 11, 2018 Date of Influenza Vaccine: Aug 22, 2018 Seasonal Allergies Seasonal Allergies: No Past Medical History Surgeries: Yes (CARDIAC CATH--STENTS X 2; CERVICAL CONIZATION) Cardiac, Coronary Stent, Gallbladder Respiratory: Yes (HX 2 PK A DAY SMOKER ENDING 2015) COPD Cardiac: Yes (CHF) Coronary Artery Disease, Heart Attack, Heart Murmur, High Cholesterol, Hypertension, Peripheral Vascular Neurological: Yes Headaches /Migraines : No Reproductive Disorders: Yes (CERVICAL DYSPLASIA. --S/P CRYOTHERAPY AND CO NIZATION) SPINNER IRON History: Menopausal Genitourinary: Yes Renal Failure Gastrointestinal: Yes Gastroesophageal Reflux, Liver Disease/Jaundice, Cirrhosis Musculoskeletal: Yes (ARTHRITIS --KNEES, BACK) Arthritis, Chronic Back Pain Endocrine: No HEENT: Yes Cancer: No Psychosocial: No Integumentary: No Blood Disorders: Yes (ANEMIA --CURRENT PROBLEM STARTING 12/08/18) Family Medical History Reviewed Nursing Family Hx Heart Disease, Diabetes Review of Systems Time Seen by Provider: 12:31 Sepsis Event Evaluation Height, Weight, BMI Height: 5'4.00" Weight: 157lbs. 6.0oz. 71.264230bu; 27.5 BMI Method:Stated Exam Exam Vital Signs Date Time Temp Pulse Resp B/P (MAP) Pulse Ox O2 Delivery O2 Flow Rate FiO2 05/01/19 07:59 98 Nasal Cannula 2.00 05/01/19 00:10 98.3 71 20 164/74 (104) 99 Nasal Cannula 3.00 04/30/19 21:00 94 Nasal Cannula 2.00 04/30/19 18:26 Nasal Cannula 2.00 04/30/19 15:40 98.2 64 20 138/63 (88) 99 Nasal Cannula 3.00 04/30/19 13:30 95 2.00 I & O 05/01/19 07:00 Intake Total 1420 ml Output Total 1300 ml Balance 120 ml Height & Weight Height: 5'4.00" Weight: 157lbs. 6.0oz. 71.791811jn; 27.5 BMI Method:Stated General Appearance: No Apparent Distress HEENT: Normal ENT Inspection Neck: Normal Inspection, Supple Respiratory: Chest Non Tender, Lungs Clear, Normal Breath Sounds, No Accessory Muscle Use Cardiovascular: Regular Rate, Rhythm, Systolic Murmur Capillary Refill: Less Than 3 Seconds Extremity: Pedal Edema Neurologic/Psychiatric: Alert, Oriented x3, No Motor/Sensory Deficits, Normal Mood/Affect Skin: Pallor Lymphatic: No Adenopathy Results Lab Laboratory Tests 04/29/19 11:36 04/30/19 10:27 05/01/19 05:15 Assessment/Plan Assessment/Plan COPD -SVNS -Advair -Oxygen - titrate -Repeat CXR GIB s/p transfusion CHFAE - 40-45% with combined diastolic dysfunction -Repeat CXR -Lasix -Monitor UTI -Continue NOY Enrique DO May 01, 2019 08:09
[2019-05-01] MEDS: ATORVASTATIN 80 MG (LIPITOR) TABLET PO SCH (08:46)
[2019-05-01] MEDS: LOSARTAN 100 MG (COZAAR) TABLET PO SCH (08:46)
[2019-05-01] MEDS: ISOSORBIDE MONONITRATE 30 MG (IMDUR) TAB PO SCH (08:46)
[2019-05-01] MEDS: CARVEDILOL 6.25 MG (COREG) TAB PO SCH ×2 (08:46→20:59)
[2019-05-01] MEDS: PANTOPRAZOLE 40 MG (PROTONIX) TAB PO SCH (08:46)
--- NOTE | 2019-05-01 10:11 | Diagnostic Imaging Report ---
INDICATION: Shortness of breath. EXAMINATION: Portable chest at 9:34 AM. FINDINGS: There is a small right pleural effusion. There is some questionable infiltrate at the right lung base. The left lung is clear. IMPRESSION: No change in the chest since the previous day. There continues to be some effusion and consolidation at the right lung base. Dictated by: Dictated on workstation # [id number]
--- NOTE | 2019-05-01 11:11 | NUR ---
CM/SS met with the patient for discharge planning. She has qualified for home oxygen with exertion, would like for oxygen to be provided by [facility] as she is a [place] resident. Will continue to follow and set up oxygen at discharge.
[2019-05-01] MEDS: cefTRIAXone FOR IV USE 1,000 MG in WATER (STERILE) FOR INJECTION 10 ML IV SCH (12:17)
[2019-05-01 16:25] VITALS: BP 144/63
[2019-05-01] MEDS: HYDROcodone/APAP 7.5 MG/325 MG (LORTAB, LORCET PLUS) TABLET PO PRN (17:10)
[2019-05-02] VITALS: BP 129/59
[2019-05-02] MEDS: HYDROcodone/APAP 7.5 MG/325 MG (LORTAB, LORCET PLUS) TABLET PO PRN (02:01)
[2019-05-02] MEDS ORDERED: FUROSEMIDE 40 MG/4 ML INJ (LASIX) IVP NR (07:15)
[2019-05-02] MEDS ORDERED: KCL 20 MEQ TAB (K-DUR) PO NR (07:15)
--- NOTE | 2019-05-02 07:16 | Pulmonary Progress Note ---
Subjective Time Seen by a Provider: 12:40 Sepsis Event Evaluation Height, Weight, BMI Height: 5'4.00" Weight: 151lbs. 4.8oz. 68.497802sb; 27.5 BMI Method:Stated Exam Exam Vital Signs Date Time Temp Pulse Resp B/P (MAP) Pulse Ox O2 Delivery O2 Flow Rate FiO2 05/02/19 00:00 97.3 64 18 129/59 (82) 97 Nasal Cannula 3.00 05/01/19 21:00 98 Nasal Cannula 2.00 05/01/19 18:35 Nasal Cannula 2.00 05/01/19 16:25 97.4 62 20 144/63 (90) 98 Nasal Cannula 3.00 05/01/19 09:00 95 Nasal Cannula 2.00 05/01/19 08:00 97.5 71 18 181/76 (111) 95 Nasal Cannula 3.00 05/01/19 07:59 98 Nasal Cannula 2.00 I & O 05/02/19 07:00 Intake Total 1470 ml Output Total 440 ml Balance 1030 ml Height & Weight Height: 5'4.00" Weight: 151lbs. 4.8oz. 68.767187pk; 27.5 BMI Method:Stated General Appearance: No Apparent Distress HEENT: Normal ENT Inspection Neck: Normal Inspection, Supple Respiratory: Chest Non Tender, Lungs Clear, Normal Breath Sounds, No Accessory Muscle Use Cardiovascular: Regular Rate, Rhythm, Systolic Murmur Capillary Refill: Less Than 3 Seconds Extremity: Pedal Edema Neurologic/Psychiatric: Alert, Oriented x3, No Motor/Sensory Deficits, Normal Mood/Affect Skin: Pallor Lymphatic: No Adenopathy Results Lab Laboratory Tests 04/30/19 10:27 05/01/19 05:15 Assessment/Plan Assessment/Plan COPD -SVNS increase to QID -Advair -Oxygen - titrate -Repeat CXR GIB s/p transfusion CHFAE - 40-45% with combined diastolic dysfunction -Repeat CXR -Lasix will give 60mg IV X 1 -repeat CXR tomorrow morning -Monitor UTI -Continue NOY Enrique DO May 02, 2019 07:16
[2019-05-02] MEDS: ACETAMINOPHEN 325 MG TABLET PO PRN (07:49)
[2019-05-02 08:00] VITALS: BP 141/63
[2019-05-02] MEDS ORDERED: RT-ADVAIR HFA 115/21 MCG PER PUFF IH SCH (08:00)
[2019-05-02] MEDS: CARVEDILOL 6.25 MG (COREG) TAB PO SCH (08:34)
[2019-05-02] MEDS: ATORVASTATIN 80 MG (LIPITOR) TABLET PO SCH (08:34)
[2019-05-02] MEDS: LOSARTAN 100 MG (COZAAR) TABLET PO SCH (08:35)
[2019-05-02] MEDS: PANTOPRAZOLE 40 MG (PROTONIX) TAB PO SCH (08:35)
[2019-05-02] MEDS: ISOSORBIDE MONONITRATE 30 MG (IMDUR) TAB PO SCH (08:35)
--- NOTE | 2019-05-02 10:48 | NUR ---
1015 - PCT WAS CALLED INTO PATIENT'S ROOM. PCT MADE THIS BOOKSTORE MANAGER AWARE OR PATIENT'S INABILITY TO RAISE RIGHT ARM. THIS BOOKSTORE MANAGER WENT INTO ROOM AND PERFORMED A FULL NEURO EXAM. ONLY ABNORMALITY NOTICED WAS DRIFT OF THE RIGHT ARM. 1030 - NOTIFIED DR. CURIEL OF THIS INCIDENT. NO NEW ORDERS AT THIS TIME. 1040 - THIS BOOKSTORE MANAGER WENT BACK TO EXAMINE PATIENT AGAIN. NEUROLOGICAL EXAM PERFORMED AND SOME STRENGTH IS BACK IN THE RIGHT ARM BUT MILD DRIFT NOTICED. PATIENT STATES THAT IT IS GETTING BETTER BUT STILL FEELS HEAVY.
[2019-05-02] MEDS ORDERED: RT-ALBUTEROL/IPRATROPIUM 3 ML (DUONEB) VIAL INH SCH (11:00)
--- NOTE | 2019-05-02 11:42 | Progress Note-Hospitalist ---
Progress Note Progress Notes/Assess & Plan Date Seen 05/01/19 Time Seen by Provider: 10:30 Assessment & Plan The patient remains an enigma. The endoscopies yielded no clear site of blood loss. Stool exam for Hemoccult has been positive but does not quantitate the issue. Referring to Dr. Christianson 's H&P from November, hepatic cirrhosis was mentioned. Endoscopies have not spoken of varices. Hemoglobin remained stable at 7.5. Physical exam: Lungs are clear to auscultation. CV is regular. Impression: Anemia, recurrent. Given the microcytosis and the hypokalemia it appears that this is of blood loss. There has been and anemia analyzer ordered but not reported. Plan: Consult Dr. Aguayo for hematology suggestions. DEON CURIEL MD May 02, 2019 11:42
[2019-05-02] MEDS: cefTRIAXone FOR IV USE 1,000 MG in WATER (STERILE) FOR INJECTION 10 ML IV SCH (12:08)
--- NOTE | 2019-05-02 12:10 | Progress Note-Hospitalist ---
Progress Note Progress Notes/Assess & Plan Date Seen 05/02/19 Time Seen by Provider: 12:07 Assessment & Plan Dr. Rogel to see the patient today. One of the discussions will be about the use of intravenous iron replacement as the patient has had 3 admissions that she is here for what appears to be blood loss/iron deficiency anemia. She was asked about the reference Dr. Christianson it made to cirrhosis. She states that this was from 1998 when she had been drinking heavily. She stated that her doctors told her that it was really bad. She stopped drinking at that time. Physical exam: Breath sounds are distant but clear CV is regular. Ankles show no pedal edema. Impression: Iron deficiency anemia. This appears to be secondary to GI blood loss but no site has been clearly defined. Plan: Await Dr. Rogel consult. Then hoped to discharge with a plan. DEON CURIEL MD May 02, 2019 12:10
--- NOTE | 2019-05-02 13:30 | NUR ---
CM/SS patient will discharge this day. Oxygen sent to [facility], they will deliver this day by 1530. Choice form in patient chart.
--- NOTE | 2019-05-02 15:00 | NUR ---
[facility] HERE TO DELIVER HOME O2.
[2019-05-02 16:05] VITALS: BP 141/63
--- NOTE | 2019-05-02 16:05 | NUR ---
ILIR HOOK demonstrates understanding of discharge instructions and accurately returns instructions upon questioning. Copy of Post-Discharge Instructions and Medication Discharge Instructions given to PATIENT. ILIR HOOK is able to manage continuing needs after discharge. Patients belongings returned to [facility]. Skin dry and intact; no breakdown noted. Patient discharged from [facility] on at 1605. ILIR HOOK left floor via WHEELCHAIR, accompanied by STAFF AND SIGNIFICANT OTHER.
== END 2019-05-02 16:05 | disposition home or self-care (01) | DRG 377 ==
LOC: EDUNIT# 07:23 → ER FS 07:27 → ICU 09:47 → 4TH 04-28 14:20
PROVIDERS: ADMIT Internal Medicine; ATTEND Internal Medicine
PROC: 0DBE8ZX Excision of Large Intestine, Via Natural or Artificial Opening Endoscopic, Diagnostic (ICD-10-PCS; 2019-04-27)
PROC: 0DB48ZX Excision of Esophagogastric Junction, Via Natural or Artificial Opening Endoscopic, Diagnostic (ICD-10-PCS; principal; 2019-04-27 14:50)
PROC: 0DB78ZX Excision of Stomach, Pylorus, Via Natural or Artificial Opening Endoscopic, Diagnostic (ICD-10-PCS; 2019-04-27 14:50)
DX: K92.2 Gastrointestinal hemorrhage, unspecified (principal); D62 Acute posthemorrhagic anemia; D50.9 Iron deficiency anemia, unspecified; I11.0 Hypertensive heart disease with heart failure; I50.43 Acute on chronic combined systolic (congestive) and diastolic (congestive) heart failure; N39.0 Urinary tract infection, site not specified; K63.5 Polyp of colon; K21.0 Gastro-esophageal reflux disease with esophagitis; K64.1 Second degree hemorrhoids; K29.70 Gastritis, unspecified, without bleeding; K27.9 Peptic ulcer, site unspecified, unspecified as acute or chronic, without hemorrhage or perforation; R79.89 Other specified abnormal findings of blood chemistry; I25.10 Atherosclerotic heart disease of native coronary artery without angina pectoris; I25.2 Old myocardial infarction; Z87.11 Personal history of peptic ulcer disease; Z87.19 Personal history of other diseases of the digestive system; K70.30 Alcoholic cirrhosis of liver without ascites; K22.70 Barrett's esophagus without dysplasia; K44.9 Diaphragmatic hernia without obstruction or gangrene; E78.00 Pure hypercholesterolemia, unspecified; J44.9 Chronic obstructive pulmonary disease, unspecified; R01.1 Cardiac murmur, unspecified; E87.6 Hypokalemia; R09.02 Hypoxemia; I73.9 Peripheral vascular disease, unspecified; N19 Unspecified kidney failure; Z87.891 Personal history of nicotine dependence; Z95.5 Presence of coronary angioplasty implant and graft; Z91.14 Patient's other noncompliance with medication regimen
CPT/HCPCS: 36415; 36430; 71045; 71046; 80048; 80053; 81000; 82274; 82728; 83540; 83605; 83735; 83880; 84100; 84484; 85007; 85014; 85018; 85025; 85027; 85045; 85610; 85730; 86850; 86900; 86901; 86920; 87077; 87081; 87088; 87186; 88305; 93005; 93306; 94640; 94760; 94761; 96361; 96365; 96366; 96375

== ENCOUNTER 2019-05-05 16:10 | Emergency (ER) | payer MEDICAID ==
[~2019-05-05] VITALS: Ht 167.6 cm; Wt 68.0 kg
--- OUTSIDE RECORDS SUMMARY | 2019-05-05 16:16 | XMS REPORT | Continuity of Care Document ---
Author Organization Unknown Address Unknown Allergies Active Description Code Type Severity Reaction Onset Reported/Identified Relationship to Patient Clinical Status Yes No Known Drug Allergies [id number] Drug Allergy Unknown N/A 04/26/2019 Medications There is no data. 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 12/11/2018 DEON CURIEL MD, [...] MD Ot I25.10 ATHSCL HEART DISEASE OF [place] CORONARY 12/11/2018 DEON CURIEL MD, Ot I25.2 OLD MYOCARDIAL INFARCTION 12/11/2018 DEON CURIEL MD Ot I73.9 PERIPHERAL VASCULAR DISEASE, UNSPECIFIED 12/11/2018 EDON CURIEL MD Ot J44.9 CHRONIC OBSTRUCTIVE PULMONARY [...] MD, Ot I25.10 ATHSCL HEART DISEASE OF [place] CORONARY 01/12/2019 NED HICKMAN MD, Ot I25.2 [...] NE 01/12/2019 NED HICKMAN MD, Ot 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 01/12/2019 NED HICKMAN MD, Ot Z79.82 LONG-TERM (CURRENT) USE OF ASPIRIN 01/12/2019 NED HICKMAN MD, Ot 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.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 01/12/2019 NED HICKMAN MD, Ot Z87.891 PERSONAL HISTORY OF NICOTINE DEPENDENCE 01/13/2019 NED HICKMAN MD Ot D50.9 IRON DEFICIENCY ANEMIA, UNSPECIFIED 01/13/2019 NED HICKMAN MD, Ot E78.00 PURE HYPERCHOLESTEROLEMIA, UNSPECIFIED 01/13/2019 NED HICKMAN MD Ot I10 ESSENTIAL (PRIMARY) HYPERTENSION 01/13/2019 NED HICKMAN MD, Ot I25.10 ATHSCL HEART DISEASE OF [place] CORONARY 01/13/2019 NED HICKMAN MD, Ot I25.2 [...] NE 01/13/2019 NED HICKMAN MD, Ot 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 01/13/2019 NED HICKMAN MD, Ot 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 01/13/2019 NED HICKMAN MD, Ot Z79.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 01/13/2019 NED HICKMAN MD, Ot Z87.891 PERSONAL HISTORY OF NICOTINE DEPENDENCE 01/19/2019 NED HICKMAN MD, Ot D50.9 IRON DEFICIENCY ANEMIA, UNSPECIFIED 01/19/2019 NED HICKMAN MD, Ot E78.00 PURE HYPERCHOLESTEROLEMIA, UNSPECIFIED 01/19/2019 NED HICKMAN MD Ot I10 ESSENTIAL (PRIMARY) HYPERTENSION 01/19/2019 NED HICKMAN MD, Ot I25.10 ATHSCL HEART DISEASE OF [place] CORONARY 01/19/2019 NED HICKMAN MD, Ot I25.2 [...] NE 01/19/2019 NED HICKMAN MD, Ot 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 01/19/2019 NED HICKMAN MD, Ot Z79.82 LONG-TERM (CURRENT) USE OF ASPIRIN 01/19/2019 NED HICKMAN MD, Ot Z79.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 01/19/2019 NED HICKMAN MD, Ot Z87.891 PERSONAL HISTORY OF NICOTINE DEPENDENCE 01/19/2019 NED HICKMAN MD, Ot D50.9 IRON DEFICIENCY ANEMIA, UNSPECIFIED 01/19/2019 NED HICKMAN MD, Ot E78.00 PURE HYPERCHOLESTEROLEMIA, UNSPECIFIED 01/19/2019 NED HICKMAN MD, Ot I10 ESSENTIAL (PRIMARY) HYPERTENSION 01/19/2019 NED HICKMAN MD, Ot I25.10 ATHSCL HEART DISEASE OF [place] CORONARY 01/19/2019 NED HICKMAN MD, Ot I25.2 OLD MYOCARDIAL INFARCTION 01/19/2019 NED HICKMAN MD, Ot I73.9 PERIPHERAL VASCULAR DISEASE, UNSPECIFIED 01/19/2019 NED HICKMAN MD, Ot K21.0 GASTRO-ESOPHAGEAL REFLUX DISEASE WITH ES 01/19/2019 NDE HICKMAN MD, Ot K25.9 GASTRIC ULCER, UNSP [...] NE 01/19/2019 NED HICKMAN MD, Ot 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 01/19/2019 NED HICKMAN MD, Ot 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 01/19/2019 NED HICKMAN MD, Ot Z79.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 01/19/2019 NED HICKMAN MD, Ot Z87.891 PERSONAL HISTORY OF NICOTINE DEPENDENCE 01/19/2019 NED HICKMAN MD, Ot D50.9 IRON DEFICIENCY ANEMIA, UNSPECIFIED 01/19/2019 NED HICKMAN MD, Ot E78.00 PURE HYPERCHOLESTEROLEMIA, UNSPECIFIED 01/19/2019 NED HICKMAN MD, Ot I10 ESSENTIAL (PRIMARY) HYPERTENSION 01/19/2019 NED HICKMAN MD, Ot I25.10 ATHSCL HEART DISEASE OF [place] CORONARY 01/19/2019 NED HICKMAN MD, Ot I25.2 [...] NE 01/19/2019 NED HICKMAN MD, Ot 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 01/19/2019 NED HICKMAN MD, Ot Z79.82 LONG-TERM (CURRENT) USE OF ASPIRIN 01/19/2019 NED HICKMAN MD, Ot Z79.899 OTHER LONG-TERM (CURRENT) DRUG THERAPY 01/19/2019 NED HICKMAN MD, Ot Z87.891 PERSONAL HISTORY OF NICOTINE DEPENDENCE 01/27/2019 NED HICKMAN MD, Ot D50.9 IRON DEFICIENCY ANEMIA, UNSPECIFIED 01/27/2019 NED HICKMAN MD, Ot E78.00 PURE HYPERCHOLESTEROLEMIA, UNSPECIFIED 01/27/2019 NED HICKMAN MD, Ot I10 ESSENTIAL (PRIMARY) HYPERTENSION 01/27/2019 NED HICKMAN MD, Ot I25.10 ATHSCL HEART DISEASE OF [place] CORONARY 01/27/2019 NED HICKMAN MD, Ot I25.2 [...] ASC 01/27/2019 NED HICKMAN MD, Ot 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 01/27/2019 NED HICKMAN MD, Ot 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 01/27/2019 NED HICKMAN MD, Ot Z79.899 OTHER LONG-TERM (CURRENT) DRUG THERAPY 01/27/2019 NED HICKMAN MD, [...] MD Ot I25.10 ATHSCL HEART DISEASE OF [place] CORONARY 03/24/2019 DEON CURIEL MD, Ot I25.2 [...] UNSPECIFIED 03/24/2019 DEON CURIEL MD Ot Z79.02 LONG-TERM (CURRENT) USE OF 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 03/24/2019 DEON CURIEL MD Ot 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 03/24/2019 DEON CURIEL [...] MD Ot I25.10 ATHSCL HEART DISEASE OF [place] CORONARY 03/24/2019 DEON CURIEL MD Ot I25.2 [...] UNSPECIFIED 03/24/2019 DEON CURIEL MD Ot Z79.02 LONG-TERM (CURRENT) USE OF 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 03/24/2019 DEON CURIEL MD Ot 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 03/24/2019 DEON CURIEL MD Ot Z86.010 PERSONAL HISTORY OF COLONIC POLYPS 03/24/2019 DEON CURIEL MD Ot Z87.891 PERSONAL HISTORY OF NICOTINE DEPENDENCE 03/24/2019 DEON CURIEL MD Ot Z95.5 PRESENCE OF CORONARY ANGIOPLASTY IMPLANT 05/02/2019 DEON CURIEL MD Ot D62 ACUTE POSTHEMORRHAGIC ANEMIA 05/02/2019 DEON CURIEL MD Ot E78.00 PURE HYPERCHOLESTEROLEMIA, UNSPECIFIED 05/02/2019 DEON CURIEL MD Ot I11.0 HYPERTENSIVE HEART DISEASE WITH HEART FA 05/02/2019 DEON CURIEL MD Ot I25.10 ATHSCL HEART DISEASE OF [place] CORONARY 05/02/2019 DEON CURIEL MD Ot I25.2 OLD MYOCARDIAL INFARCTION 05/02/2019 DEON CURIEL MD Ot I50.43 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 05/02/2019 DEON CURIEL MD Ot J44.9 CHRONIC OBSTRUCTIVE PULMONARY DISEASE, U 05/02/2019 DEON CURIEL MD Ot K21.9 GASTRO-ESOPHAGEAL REFLUX DISEASE WITHOUT 05/02/2019 DEON CURIEL MD Ot 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 05/02/2019 DEON CURIEL MD Ot K44.9 DIAPHRAGMATIC HERNIA WITHOUT OBSTRUCTION 05/02/2019 DEON CURIEL MD Ot K70.30 ALCOHOLIC CIRRHOSIS OF LIVER WITHOUT ASC 05/02/2019 DEON CURIEL MD Ot K92.2 GASTROINTESTINAL HEMORRHAGE, UNSPECIFIED 05/02/2019 DEON CURIEL MD Ot R01.1 CARDIAC MURMUR, UNSPECIFIED 05/02/2019 DEON CURIEL MD Ot R79.89 OTHER SPECIFIED ABNORMAL FINDINGS OF BLO 05/02/2019 DEON CURIEL MD Ot Z87.11 PERSONAL HISTORY OF PEPTIC ULCER DISEASE 05/02/2019 DEON CURIEL MD Ot Z87.19 PERSONAL HISTORY OF OTHER DISEASES OF TH 05/02/2019 DEON CURIEL MD Ot Z87.891 PERSONAL HISTORY OF NICOTINE DEPENDENCE 05/02/2019 DEON CURIEL MD Ot Z95.5 PRESENCE OF CORONARY ANGIOPLASTY IMPLANT 05/02/2019 DEON CURIEL MD Ot D62 ACUTE POSTHEMORRHAGIC ANEMIA 05/02/2019 DEON CURIEL MD Ot E78.00 PURE HYPERCHOLESTEROLEMIA, UNSPECIFIED 05/02/2019 DEON CURIEL MD Ot I11.0 HYPERTENSIVE HEART DISEASE WITH HEART FA 05/02/2019 DEON CURIEL MD Ot I25.10 ATHSCL HEART DISEASE OF [place] CORONARY 05/02/2019 DEON CURIEL MD Ot I25.2 OLD MYOCARDIAL INFARCTION 05/02/2019 DEON CURIEL MD Ot I50.43 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 05/02/2019 DEON CURIEL MD Ot J44.9 CHRONIC OBSTRUCTIVE PULMONARY DISEASE, U 05/02/2019 DEON CURIEL MD, Ot K21.9 GASTRO-ESOPHAGEAL REFLUX DISEASE WITHOUT 05/02/2019 DEON CURIEL MD Ot 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 05/02/2019 DEON CURIEL MD Ot K44.9 DIAPHRAGMATIC HERNIA WITHOUT OBSTRUCTION 05/02/2019 DEON CURIEL MD, Ot K70.30 ALCOHOLIC CIRRHOSIS OF LIVER WITHOUT ASC 05/02/2019 DEON CURIEL MD, Ot K92.2 GASTROINTESTINAL HEMORRHAGE, UNSPECIFIED 05/02/2019 DEON CURIEL MD Ot R01.1 CARDIAC MURMUR, UNSPECIFIED 05/02/2019 DEON CURIEL MD Ot R79.89 OTHER SPECIFIED ABNORMAL FINDINGS OF BLO 05/02/2019 DEON CURIEL MD Ot Z87.11 PERSONAL HISTORY OF PEPTIC ULCER DISEASE 05/02/2019 DEON CURIEL MD Ot Z87.19 PERSONAL HISTORY OF OTHER DISEASES OF TH 05/02/2019 DEON CURIEL MD Ot Z87.891 PERSONAL HISTORY OF NICOTINE DEPENDENCE 05/02/2019 DEON CURIEL MD Ot Z95.5 PRESENCE OF CORONARY ANGIOPLASTY IMPLANT Procedures Code Description Performed By Performed On [id number] EXCISION OF ESOPHAGOGASTRIC JUNCTION, EN 12/09/2018 [id number] EXCISION OF STOMACH, PYLORUS, ENDO, DIAG 12/09/2018 [id number] EXCISION OF ESOPHAGOGASTRIC JUNCTION, EN 03/23/2019 [id number] EXCISION OF STOMACH, PYLORUS, ENDO, DIAG 03/23/2019 [...] panel - 12/08/18 20:14 ABO+Rh group OP NR Transfusion band number [id number] Blood group antibody screen NEGATIVE NR Serum or plasma troponin i.cardiac measurement (mass/volume) [...] PROBNP FS - 04/26/19 07:50 [place] [address].0 pg/mL <75.0 Manual absolute plasma cell count - 04/26/19 07:50 Blood monocytes/100 leukocytes 5 % NRG Manual blood segmented neutrophils/100 leukocytes 82 % NRG Blood band neutrophils/100 leukocytes 4 % NRG Manual blood lymphocytes/100 leukocytes 9 % NRG Blood anisocytosis detection by light microscopy 3+ NRG Blood macrocytes detection by light microscopy 1+ NRG Blood ovalocytes detection by light microscopy SLIGHT NRG Blood poikilocytosis detection by light microscopy 1+ NRG Blood hypochromia detection by light microscopy 3+ NRG Blood microcytes detection by light microscopy 2+ NRG Blood target cells detection by light microscopy 1+ NRG RED CELLS LEUKO REDUCED AS1 - 04/26/19 07:50 RED CELLS LEUKO REDUCED AS1 NOT AVAILABLE NRG Blood type T Indirect antibody screen panel - 04/26/19 07:50 ABO+Rh group OP NRG Transfusion band number [id number] NRG Blood group antibody screen NEGATIVE NRG Stool occult blood screen - 04/26/19 08:00 Stool gastrointestinal hemoglobin detection POSITIVE NEGATIVE Complete urinalysis with reflex to culture - 04/26/19 09:30 Urine color determination YELLOW NRG Urine clarity determination SL CLOUDY NRG Urine pH measurement by test strip 6.0 5-9 Specific gravity of urine by test strip 1.015 1.016-1.022 Urine protein assay by test strip, semi-quantitative NEGATIVE NEGATIVE Urine glucose detection by automated test strip NEGATIVE NEGATIVE Erythrocytes detection in urine sediment by light microscopy NEGATIVE NEGATIVE Urine ketones detection by automated test strip TRACE NEGATIVE Urine nitrite detection by test strip POSITIVE NEGATIVE Urine total bilirubin detection by test strip NEGATIVE NEGATIVE Urine urobilinogen measurement by automated test strip (mass/volume) 0.2 mg/dL NORMAL Urine leukocyte esterase detection by dipstick 1+ NEGATIVE Automated urine sediment erythrocyte count by microscopy (number/high power field) NONE NRG Automated urine sediment leukocyte count by microscopy (number/high power field) [HPF] NRG Bacteria detection in urine sediment by light microscopy LARGE NRG Squamous epithelial cells detection in urine sediment by light microscopy 2-5 NRG Crystals detection in urine sediment by light microscopy NONE NRG Casts detection in urine sediment by light microscopy NONE NRG Mucus detection in urine sediment by light microscopy MODERATE NRG Complete urinalysis with reflex to culture YES NRG Bacterial urine culture - 04/26/19 09:30 Bacterial urine culture [id number] NRG COLONY COUNT >100,000/ML NRG FTX;REPORTABLE SUSCEPTIBILITY REPORTED 04-29-19, 5. NRG FREE TEXT ENTRY 2 ID REPORTED 04/27/19 13:05 NRG Dirithromycin susceptibility test by disk diffusion - 04/26/19 09:30 Gentamicin susceptibility test by minimum inhibitory concentration <= NRG Trimethoprim/sulfamethoxazole susceptibility test by minimum inhibitoryconcentration <= NRG Levofloxacin susceptibility test by minimum inhibitory concentration <= NRG Ampicillin susceptibility test by minimum inhibitory concentration <= NRG Cefazolin susceptibility test by minimum inhibitory concentration 2 NRG Ceftriaxone susceptibility test by minimum inhibitory concentration <= NRG Ciprofloxacin susceptibility test by minimum inhibitory concentration <= NRG Meropenem susceptibility test by minimum inhibitory concentration <= NRG Nitrofurantoin susceptibility test by minimum inhibitory concentration <= NRG Amoxicillin and clavulanate potassium susc MIRZA <= NRG Dirithromycin susceptibility test by disk diffusion - 04/26/19 09:30 Gentamicin susceptibility test by minimum inhibitory concentration <= NRG Trimethoprim/sulfamethoxazole susceptibility test by minimum inhibitoryconcentration <= NRG Levofloxacin susceptibility test by minimum inhibitory concentration <= NRG Ampicillin susceptibility test by minimum inhibitory concentration > NRG Cefazolin susceptibility test by minimum inhibitory concentration > NRG Ceftriaxone susceptibility test by minimum inhibitory concentration <= NRG Ciprofloxacin susceptibility test by minimum inhibitory concentration <= NRG Meropenem susceptibility test by minimum inhibitory concentration <= NRG Nitrofurantoin susceptibility test by minimum inhibitory concentration 64 NRG Amoxicillin and clavulanate potassium susc MIRZA > NRG Methicillin resistant Staphylococcus aureus (MRSA) screening culture - 04/26/19 16:25 Methicillin resistant Staphylococcus aureus (MRSA) screening culture NEG NRG Whole blood hemoglobin and hematocrit panel - 04/26/19 18:40 Venous blood hemoglobin measurement (mass/volume) 8.2 g/dL 11.5-16.0 Blood hematocrit (volume fraction) 28 % 35-52 Complete blood count (CBC) with automated white blood cell (WBC) differential - 04/27/19 03:05 Blood leukocytes automated count (number/volume) 10.2 10*3/uL 4.3-11.0 Blood erythrocytes automated count (number/volume) 3.57 10*6/uL 4.35-5.85 Venous blood hemoglobin measurement (mass/volume) 8.1 g/dL 11.5-16.0 Blood hematocrit (volume fraction) 28 % 35-52 Automated erythrocyte mean corpuscular volume 79 [foz_us] 80-99 Automated erythrocyte mean corpuscular hemoglobin (mass per erythrocyte) 23 pg 25-34 Automated erythrocyte mean corpuscular hemoglobin concentration measurement (mass/volume) 29 g/dL 32-36 Automated erythrocyte distribution width ratio 18.0 % 10.0- 14.5 Automated blood platelet count (count/volume) 318 10*3/uL 130-400 Automated blood platelet mean volume measurement 10.6 [foz_us] 7.4-10.4 Automated blood neutrophils/100 leukocytes 78 % 42-75 Automated blood lymphocytes/100 leukocytes 16 % 12-44 Blood monocytes/100 leukocytes 5 % 0-12 Automated blood eosinophils/100 leukocytes 1 % 0-10 Automated blood basophils/100 leukocytes 0 % 0-10 Blood neutrophils automated count (number/volume) 7.9 10*3 1.8-7.8 Blood lymphocytes automated count (number/volume) 1.7 10*3 1.0-4.0 Blood monocytes automated count (number/volume) 0.5 10*3 0.0- 1.0 Automated eosinophil count 0.1 10*3/uL 0.0-0.3 Automated blood basophil count (count/volume) 0.0 10*3/uL 0.0-0.1 Whole blood basic metabolic panel - 04/27/19 03:05 Serum or plasma sodium measurement (moles/volume) 138 mmol/L 135-145 Serum or plasma potassium measurement (moles/volume) 3.2 mmol/L 3.6-5.0 Serum or plasma chloride measurement (moles/volume) 107 mmol/L 98-107 Carbon dioxide 16 mmol/L 21-32 Serum or plasma anion gap determination (moles/volume) 15 mmol/L 5-14 Serum or plasma urea nitrogen measurement (mass/volume) 13 mg/dL 7-18 Serum or plasma creatinine measurement (mass/volume) 0.96 mg/dL 0.60-1.30 Serum or plasma urea nitrogen/creatinine mass ratio 14 NRG Serum or plasma creatinine measurement with calculation of estimated glomerular filtration rate 59 NRG Serum or plasma glucose measurement (mass/volume) 110 mg/dL 70-105 Serum or plasma calcium measurement (mass/volume) 9.0 mg/dL 8.5-10.1 Serum or plasma phosphate measurement (mass/volume) - 04/27/19 03:05 Serum or plasma phosphate measurement (mass/volume) 3.5 mg/dL 2.3-4.7 Magnesium - 04/27/19 03:05 Magnesium 2.4 mg/dL 1.8-2.4 Complete blood count (CBC) with automated white blood cell (WBC) differential - 04/28/19 03:42 Blood leukocytes automated count (number/volume) 10.4 10*3/uL 4.3-11.0 Blood erythrocytes automated count (number/volume) 3.41 10*6/uL 4.35-5.85 Venous blood hemoglobin measurement (mass/volume) 7.9 g/dL 11.5-16.0 Blood hematocrit (volume fraction) 27 % 35-52 Automated erythrocyte mean corpuscular volume 80 [foz_us] 80-99 Automated erythrocyte mean corpuscular hemoglobin (mass per erythrocyte) 23 pg 25-34 Automated erythrocyte mean corpuscular hemoglobin concentration measurement (mass/volume) 29 g/dL 32-36 Automated erythrocyte distribution width ratio 17.8 % 10.0- 14.5 Automated blood platelet count (count/volume) 283 10*3/uL 130-400 Automated blood platelet mean volume measurement 10.8 [foz_us] 7.4-10.4 Automated blood neutrophils/100 leukocytes 77 % 42-75 Automated blood lymphocytes/100 leukocytes 14 % 12-44 Blood monocytes/100 leukocytes 7 % 0-12 Automated blood eosinophils/100 leukocytes 1 % 0-10 Automated blood basophils/100 leukocytes 0 % 0-10 Blood neutrophils automated count (number/volume) 8.1 10*3 1.8-7.8 Blood lymphocytes automated count (number/volume) 1.5 10*3 1.0-4.0 Blood monocytes automated count (number/volume) 0.8 10*3 0.0- 1.0 Automated eosinophil count 0.1 10*3/uL 0.0-0.3 Automated blood basophil count (count/volume) 0.0 10*3/uL 0.0-0.1 Whole blood basic metabolic panel - 04/28/19 03:42 Serum or plasma sodium measurement (moles/volume) 135 mmol/L 135-145 Serum or plasma potassium measurement (moles/volume) 3.5 mmol/L 3.6-5.0 Serum or plasma chloride measurement (moles/volume) 104 mmol/L 98-107 Carbon dioxide 19 mmol/L 21-32 Serum or plasma anion gap determination (moles/volume) 12 mmol/L 5-14 Serum or plasma urea nitrogen measurement (mass/volume) 17 mg/dL 7-18 Serum or plasma creatinine measurement (mass/volume) 0.93 mg/dL 0.60-1.30 Serum or plasma urea nitrogen/creatinine mass ratio 18 NRG Serum or plasma creatinine measurement with calculation of estimated glomerular filtration rate > NRG Serum or plasma glucose measurement (mass/volume) 119 mg/dL 70-105 Serum or plasma calcium measurement (mass/volume) 8.5 mg/dL 8.5-10.1 Serum or plasma phosphate measurement (mass/volume) - 04/28/19 03:42 Serum or plasma phosphate measurement (mass/volume) 2.7 mg/dL 2.3-4.7 Magnesium - 04/28/19 03:42 Magnesium 2.3 mg/dL 1.8-2.4 ANEMIA ANALYZER - 04/28/19 13:38 Blood leukocytes automated count (number/volume) 10.2 10*3/uL 4.3-11.0 Blood erythrocytes automated count (number/volume) 3.32 10*6/uL 4.35-5.85 Venous blood hemoglobin measurement (mass/volume) 7.8 g/dL 11.5-16.0 Blood hematocrit (volume fraction) 27 % 35-52 Automated erythrocyte mean corpuscular volume 80 [foz_us] 80-99 Automated erythrocyte mean corpuscular hemoglobin (mass per erythrocyte) 24 pg 25-34 Automated erythrocyte mean corpuscular hemoglobin concentration measurement (mass/volume) 29 g/dL 32-36 Automated erythrocyte distribution width ratio 18.0 % 10.0- 14.5 Automated blood platelet count (count/volume) 272 10*3/uL 130-400 Automated blood platelet mean volume measurement 11.0 [foz_us] 7.4-10.4 Automated blood neutrophils/100 leukocytes 80 % 42-75 Automated blood lymphocytes/100 leukocytes 13 % 12-44 Blood monocytes/100 leukocytes 6 % 0-12 Automated blood eosinophils/100 leukocytes 0 % 0-10 Automated blood basophils/100 leukocytes 0 % 0-10 Blood neutrophils automated count (number/volume) 8.2 10*3 1.8-7.8 Blood lymphocytes automated count (number/volume) 1.4 10*3 1.0-4.0 Blood monocytes automated count (number/volume) 0.6 10*3 0.0- 1.0 Automated eosinophil count 0.0 10*3/uL 0.0-0.3 Automated blood basophil count (count/volume) 0.0 10*3/uL 0.0-0.1 Manual blood segmented neutrophils/100 leukocytes 89 % NRG Manual blood lymphocytes/100 leukocytes 11 % NRG Blood anisocytosis detection by light microscopy SLIGHT NRG Blood macrocytes detection by light microscopy SLIGHT NRG Manual blood nucleated erythrocytes/100 leukocytes ratio 2 NRG Blood hypochromia detection by light microscopy MODERATE NRG Blood reticulocytes count (number/volume) 112 10*9/L 24-90 Blood reticulocytes/100 erythrocytes 3.38 % 0.50-2.40 Blood hypersegmented neutrophils detection by light microscopy MODERATE NRG Serum iron and total iron binding capacity panel - 04/28/19 13:38 TIBC 447 H 280-380 Serum or plasma iron measurement (mass/volume) 20 L 35-180 Total iron binding capacity and transferrin saturation measurement 4 L 15-50 UIBC (unsaturated iron binding capacity) 427 ug/dL 55-450 Serum or plasma ferritin measurement (mass/volume) 31.1 ng/mL 20.0-177.0 Complete blood count (CBC) with automated white blood cell (WBC) differential - 04/29/19 11:36 Blood leukocytes automated count (number/volume) 11.2 10*3/uL 4.3-11.0 Blood erythrocytes automated count (number/volume) 3.35 10*6/uL 4.35-5.85 Venous blood hemoglobin measurement (mass/volume) 7.9 g/dL 11.5-16.0 Blood hematocrit (volume fraction) 27 % 35-52 Automated erythrocyte mean corpuscular volume 79 [foz_us] 80-99 Automated erythrocyte mean corpuscular hemoglobin (mass per erythrocyte) 24 pg 25-34 Automated erythrocyte mean corpuscular hemoglobin concentration measurement (mass/volume) 30 g/dL 32-36 Automated erythrocyte distribution width ratio 18.7 % 10.0- 14.5 Automated blood platelet count (count/volume) 279 10*3/uL 130-400 Automated blood platelet mean volume measurement 10.7 [foz_us] 7.4-10.4 Automated blood neutrophils/100 leukocytes 77 % 42-75 Automated blood lymphocytes/100 leukocytes 14 % 12-44 Blood monocytes/100 leukocytes 8 % 0-12 Automated blood eosinophils/100 leukocytes 0 % 0-10 Automated blood basophils/100 leukocytes 0 % 0-10 Blood neutrophils automated count (number/volume) 8.6 10*3 1.8-7.8 Blood lymphocytes automated count (number/volume) 1.6 10*3 1.0-4.0 Blood monocytes automated count (number/volume) 0.9 10*3 0.0- 1.0 Automated eosinophil count 0.1 10*3/uL 0.0-0.3 Automated blood basophil count (count/volume) 0.0 10*3/uL 0.0-0.1 Comprehensive metabolic panel - 04/29/19 11:36 Serum or plasma sodium measurement (moles/volume) 139 mmol/L 135-145 Serum or plasma potassium measurement (moles/volume) 3.4 mmol/L 3.6-5.0 Serum or plasma chloride measurement (moles/volume) 105 mmol/L 98-107 Carbon dioxide 21 mmol/L 21-32 Serum or plasma anion gap determination (moles/volume) 13 mmol/L 5-14 Serum or plasma urea nitrogen measurement (mass/volume) 18 mg/dL 7-18 Serum or plasma creatinine measurement (mass/volume) 1.16 mg/dL 0.60-1.30 Serum or plasma urea nitrogen/creatinine mass ratio 16 NRG Serum or plasma creatinine measurement with calculation of estimated glomerular filtration rate 47 NRG Serum or plasma glucose measurement (mass/volume) 122 mg/dL 70-105 Serum or plasma calcium measurement (mass/volume) 9.1 mg/dL 8.5-10.1 Serum or plasma total bilirubin measurement (mass/volume) 0.7 mg/dL 0.1-1.0 Serum or plasma alkaline phosphatase measurement (enzymatic activity/volume) 89 U/L 40-136 Serum or plasma aspartate aminotransferase measurement (enzymatic activity/volume) 21 U/L 5-34 Serum or plasma alanine aminotransferase measurement (enzymatic activity/volume) 13 U/L 0-55 Serum or plasma protein measurement (mass/volume) 6.4 g/dL 6.4-8.2 Serum or plasma albumin measurement (mass/volume) 3.8 g/dL 3.2-4.5 CALCIUM CORRECTED 9.3 mg/dL 8.5-10.1 Serum or plasma lithium measurement (moles/volume) - 04/29/19 11:36 BNP level 9728.9 pg/mL <100.0 Complete blood count (CBC) with automated white blood cell (WBC) differential - 04/30/19 10:27 Blood leukocytes automated count (number/volume) 9.6 10*3/uL 4.3-11.0 Blood erythrocytes automated count (number/volume) 3.12 10*6/uL 4.35-5.85 Venous blood hemoglobin measurement (mass/volume) 7.3 g/dL 11.5-16.0 Blood hematocrit (volume fraction) 25 % 35-52 Automated erythrocyte mean corpuscular volume 80 [foz_us] 80-99 Automated erythrocyte mean corpuscular hemoglobin (mass per erythrocyte) 23 pg 25-34 Automated erythrocyte mean corpuscular hemoglobin concentration measurement (mass/volume) 29 g/dL 32-36 Automated erythrocyte distribution width ratio 18.6 % 10.0- 14.5 Automated blood platelet count (count/volume) 199 10*3/uL 130-400 Automated blood platelet mean volume measurement 10.2 [foz_us] 7.4-10.4 Automated blood neutrophils/100 leukocytes 78 % 42-75 Automated blood lymphocytes/100 leukocytes 12 % 12-44 Blood monocytes/100 leukocytes 10 % 0-12 Automated blood eosinophils/100 leukocytes 1 % 0-10 Automated blood basophils/100 leukocytes 0 % 0-10 Blood neutrophils automated count (number/volume) 7.5 10*3 1.8-7.8 Blood lymphocytes automated count (number/volume) 1.1 10*3 1.0-4.0 Blood monocytes automated count (number/volume) 1.0 10*3 0.0- 1.0 Automated eosinophil count 0.1 10*3/uL 0.0-0.3 Automated blood basophil count (count/volume) 0.0 10*3/uL 0.0-0.1 Whole blood basic metabolic panel - 04/30/19 10:27 Serum or plasma sodium measurement (moles/volume) 137 mmol/L 135-145 Serum or plasma potassium measurement (moles/volume) 3.2 mmol/L 3.6-5.0 Serum or plasma chloride measurement (moles/volume) 103 mmol/L 98-107 Carbon dioxide 24 mmol/L 21-32 Serum or plasma anion gap determination (moles/volume) 10 mmol/L 5-14 Serum or plasma urea nitrogen measurement (mass/volume) 22 mg/dL 7-18 Serum or plasma creatinine measurement (mass/volume) 1.25 mg/dL 0.60-1.30 Serum or plasma urea nitrogen/creatinine mass ratio 18 NRG Serum or plasma creatinine measurement with calculation of estimated glomerular filtration rate 43 NRG Serum or plasma glucose measurement (mass/volume) 134 mg/dL 70-105 Serum or plasma calcium measurement (mass/volume) 8.5 mg/dL 8.5-10.1 Complete urinalysis with reflex to culture - 04/30/19 15:00 Urine color determination YELLOW NRG Urine clarity determination CLEAR NRG Urine pH measurement by test strip 7 5-9 Specific gravity of urine by test strip 1.005 1.016-1.022 Urine protein assay by test strip, semi-quantitative NEGATIVE NEGATIVE Urine glucose detection by automated test strip NEGATIVE NEGATIVE Erythrocytes detection in urine sediment by light microscopy NEGATIVE NEGATIVE Urine ketones detection by automated test strip NEGATIVE NEGATIVE Urine nitrite detection by test strip NEGATIVE NEGATIVE Urine total bilirubin detection by test strip NEGATIVE NEGATIVE Urine urobilinogen measurement by automated test strip (mass/volume) NORMAL NORMAL Urine leukocyte esterase detection by dipstick NEGATIVE NEGATIVE Automated urine sediment erythrocyte count by microscopy (number/high power field) NONE NRG Automated urine sediment leukocyte count by microscopy (number/high power field) NONE NRG Bacteria detection in urine sediment by light microscopy NEGATIVE NRG Squamous epithelial cells detection in urine sediment by light microscopy NONE NRG Crystals detection in urine sediment by light microscopy NONE NRG Casts detection in urine sediment by light microscopy NONE NRG Mucus detection in urine sediment by light microscopy NEGATIVE NRG Complete urinalysis with reflex to culture NO NRG Complete blood count (CBC) with automated white blood cell (WBC) differential - 05/01/19 05:15 Blood leukocytes automated count (number/volume) 10.1 10*3/uL 4.3-11.0 Blood erythrocytes automated count (number/volume) 3.25 10*6/uL 4.35-5.85 Venous blood hemoglobin measurement (mass/volume) 7.5 g/dL 11.5-16.0 Blood hematocrit (volume fraction) 26 % 35-52 Automated erythrocyte mean corpuscular volume 81 [foz_us] 80-99 Automated erythrocyte mean corpuscular hemoglobin (mass per erythrocyte) 23 pg 25-34 Automated erythrocyte mean corpuscular hemoglobin concentration measurement (mass/volume) 29 g/dL 32-36 Automated erythrocyte distribution width ratio 18.7 % 10.0- 14.5 Automated blood platelet count (count/volume) 189 10*3/uL 130-400 Automated blood platelet mean volume measurement 11.2 [foz_us] 7.4-10.4 Automated blood neutrophils/100 leukocytes 76 % 42-75 Automated blood lymphocytes/100 leukocytes 10 % 12-44 Blood monocytes/100 leukocytes 11 % 0-12 Automated blood eosinophils/100 leukocytes 2 % 0-10 Automated blood basophils/100 leukocytes 0 % 0-10 Blood neutrophils automated count (number/volume) 7.7 10*3 1.8-7.8 Blood lymphocytes automated count (number/volume) 1.0 10*3 1.0-4.0 Blood monocytes automated count (number/volume) 1.2 10*3 0.0- 1.0 Automated eosinophil count 0.2 10*3/uL 0.0-0.3 Automated blood basophil count (count/volume) 0.0 10*3/uL 0.0-0.1 Whole blood basic metabolic panel - 05/01/19 05:15 Serum or plasma sodium measurement (moles/volume) 138 mmol/L 135-145 Serum or plasma potassium measurement (moles/volume) 3.7 mmol/L 3.6-5.0 Serum or plasma chloride measurement (moles/volume) 102 mmol/L 98-107 Carbon dioxide 23 mmol/L 21-32 Serum or plasma anion gap determination (moles/volume) 13 mmol/L 5-14 Serum or plasma urea nitrogen measurement (mass/volume) 22 mg/dL 7-18 Serum or plasma creatinine measurement (mass/volume) 1.06 mg/dL 0.60-1.30 Serum or plasma urea nitrogen/creatinine mass ratio 21 NRG Serum or plasma creatinine measurement with calculation of estimated glomerular filtration rate 52 NRG Serum or plasma glucose measurement (mass/volume) 108 mg/dL 70-105 Serum or plasma calcium measurement (mass/volume) 9.2 mg/dL 8.5-10.1 Serum or plasma lithium measurement (moles/volume) - 05/01/19 06:00 BNP level 3863.2 pg/mL <100.0 Encounters ACCT No. Visit Date/Time Discharge Status Pt. Type Provider Facility Loc./Unit Complaint [id number] 03/21/2019 16:40:00 03/21/2019 23:59:59 [facility] Outpatient [facility] [id number] 04/26/2019 09:47:00 05/02/2019 16:05:00 DIS Inpatient DEON CURIEL MD [facility] 4TH GI BLEEDING ANEMIA REQ TRANSFUSION [id number] 03/21/2019 19:40:00 03/24/2019 10:30:00 DIS Inpatient DEON CURIEL MD [facility] 4TH BLOOD LOSS ANEMIA, SYMPTOMATIC [id number] 01/11/2019 10:42:00 01/11/2019 15:25:00 DIS Outpatient NED HICKMAN MD [facility] ENDO SCREENING [id number] 01/10/2019 07:44:00 01/10/2019 12:48:00 DIS Outpatient NED HICKMAN MD [facility] PREOP COLONOSCOPY [id number] 12/08/2018 22:55:00 12/11/2018 13:12:00 DIS Inpatient DEON CURIEL MD [facility] 4TH SEVERE ANEMIA;CHF;SEVERE ASVD
[2019-05-05] MEDS ORDERED: RT-ALBUTEROL/IPRATROPIUM 3 ML (DUONEB) VIAL INH ONE (16:30)
--- NOTE | 2019-05-05 16:45 | ED Dyspnea ---
General Chief Complaint: Respiratory Problems Stated Complaint: SOB, UPPER BACK PAIN, DROWSY Nursing Triage Note: States she has been short of breath since Wednesday or Wednesday and has left sided back pain that started at the same time. Has also been a little nauseous and had some stomach pain. States she has a cough and is coughing up brown sputum. Is rating back pain at 10/10. Was just discharged from hospital on the after receiving blood transfusion for low hemoglobin. History of Present Illness Date Seen by Provider: May 05, 2019 Time Seen by Provider: 16:40 Initial Comments Patient presents with increased shortness of breath and weakness for the past 2- 3 days. She was recently hospitalized at [facility] for presumed GI bleed and iron deficiency anemia. She was transfused and had a colonoscopy and upper endoscopy. Bleeding was presumed to be from esophagitis gastritis. She was discharged with nasal cannula oxygen. She's wearing it but she is unable to do most of her ADLs without significant dyspnea. She states her stools have started to turn black again. Allergies and Home Medications Allergies Coded Allergies: No Known Drug Allergies (Unverified , 05/05/19) Home Medications Acetaminophen 500 Mg Tablet, 1,000 MG PO Q4H PRN for PAIN-MILD, (Reported) Albuterol Sulfate 6.7 Gm Hfa.aer.ad, 2 PUFF INH Q4H PRN for SHORTNESS OF BREATH, (Reported) Ascorbate Calcium 500 Mg Tablet, 500 MG PO DAILY, (Reported) Atorvastatin Calcium 80 Mg Tablet, 80 MG PO DAILY, (Reported) Calcium Carbonate/Vitamin D3 1 Each Tablet, 1 TAB PO DAILY, (Reported) Carvedilol 3.125 Mg Tablet, 3.125 MG PO BID, (Reported) Guaifenesin 1,200 Mg Tab.er.12h, 1,200 MG PO BID PRN for CONGESTION, (Reported) Isosorbide Mononitrate 30 Mg Tab.er.24h, 30 MG PO DAILY, (Reported) Losartan Potassium 100 Mg Tablet, 100 MG PO DAILY, (Reported) Multivitamin 1 Each Tablet, 1 TAB PO DAILY, (Reported) Nitroglycerin 0.4 Mg Tab.subl, 0.4 MG SL UD PRN for CHEST PAIN, (Reported) Pantoprazole Sodium 40 Mg Tablet.dr, 40 MG PO DAILY, (Reported) Sennosides 8.6 Mg Tablet, 8.6 MG PO DAILY PRN for CONSTIPATION-5TH LINE, (Reported) Zinc Gluconate 50 Mg Tablet, 50 MG PO DAILY, (Reported) Patient Home Medication List Home Medication List Reviewed: Yes Review of Systems Review of Systems Constitutional: No fever; malaise, weakness Respiratory: cough, short of breath Cardiovascular: no symptoms reported Gastrointestinal: see HPI Musculoskeletal: back pain Skin: no symptoms reported Psychiatric/Neurological: No Symptoms Reported All Other Systems Reviewed Negative Unless Noted: Yes Past Dpnafbe-Qalmfg-Rhayzg Hx Patient Social History Alcohol Use: Denies Use Recreational Drug Use: No Drug of Choice: HX ETOH ABUSE Smoking Status: Former Smoker Type Used: Cigarettes Former Smoker, Quit: Nov 22, 2015 2nd Hand Smoke Exposure: No Recent Foreign Travel: No Contact w/Someone Who Travel: No Recent Infectious Disease Expo: No Recent Hopitalizations: No Physical Abuse: No Sexual Abuse: No Mistreated: No Fear: No Immunizations Up To Date Date of Pneumonia Vaccine: Dec 11, 2018 Date of Influenza Vaccine: Aug 22, 2018 Seasonal Allergies Seasonal Allergies: No Past Medical History Surgeries: Yes (CARDIAC CATH--STENTS X 2; CERVICAL CONIZATION) Cardiac, Coronary Stent, Gallbladder Respiratory: Yes (HX 2 PK A DAY SMOKER ENDING 2015) COPD Cardiac: Yes (CHF) Coronary Artery Disease, Heart Attack, Heart Murmur, High Cholesterol, Hyper tension, Peripheral Vascular Neurological: Yes Headaches /Migraines Reproductive Disorders: Yes (CERVICAL DYSPLASIA. 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 4.8oz. [id number]; 27.5 BMI Method:Stated General Appearance: No Apparent Distress, Chronically ill, Other (very pale) HEENT: PERRL/EOMI, Pharynx Normal Neck: Full Range of Motion, Supple Respiratory: Decreased Breath Sounds; No Respiratory Distress; Wheezing Cardiovascular: Regular Rate, Rhythm, No Edema Gastrointestinal: Non Tender, Soft Extremity: Normal Inspection, Normal Range of Motion Neurologic/Psychiatric: Alert, No Motor/Sensory Deficits Skin: Cool, Pallor Focused Exam Lactate Level 05/05/19 16:43: Lactic Acid Level 2.04*H Lactic Acid Level Laboratory Tests Test 05/05/19 16:43 Lactic Acid Level 2.04 MMOL/L (0.50-2.00) *H Progress/Results/Core Measures Results/Orders Lab Results Laboratory Tests Test 05/05/19 16:33 05/05/19 16:43 Range/Units White Blood Count 6.9 4.3-11.0 10^3/uL Red Blood Count 3.37 L 4.35-5.85 10^6/uL Hemoglobin 7.6 L 11.5-16.0 G/DL Hematocrit 28 L 35-52 % Mean Corpuscular Volume 82 80-99 FL Mean Corpuscular Hemoglobin 23 L 25-34 PG Mean Corpuscular Hemoglobin Concent 28 L 32-36 G/DL Red Cell Distribution Width 18.6 H 10.0-14.5 % Platelet Count 172 130-400 10^3/uL Mean Platelet Volume 11.8 H 7.4-10.4 FL Neutrophils (%) (Auto) 67 42-75 % Lymphocytes (%) (Auto) 22 12-44 % Monocytes (%) (Auto) 9 0-12 % Eosinophils (%) (Auto) 1 0-10 % Basophils (%) (Auto) 1 0-10 % Neutrophils # (Auto) 4.6 1.8-7.8 X 10^3 Lymphocytes # (Auto) 1.5 1.0-4.0 X 10^3 Monocytes # (Auto) 0.6 0.0-1.0 X 10^3 Eosinophils # (Auto) 0.0 0.0-0.3 10^3/uL Basophils # (Auto) 0.1 0.0-0.1 10^3/uL Sodium Level 140 135-145 MMOL/L Potassium Level 4.4 3.6-5.0 MMOL/L Chloride Level 102 98-107 MMOL/L Carbon Dioxide Level 18 L 21-32 MMOL/L Anion Gap 20 H 5-14 MMOL/L Blood Urea Nitrogen 18 7-18 MG/DL Creatinine 1.04 0.60-1.30 MG/DL Estimat Glomerular Filtration Rate 53 BUN/Creatinine Ratio 17 Glucose Level 108 H 70-105 MG/DL Calcium Level 8.8 8.5-10.1 MG/DL Corrected Calcium 8.9 8.5-10.1 MG/DL Magnesium Level 2.1 1.8-2.4 MG/DL Total Bilirubin 0.7 0.1-1.0 MG/DL Aspartate Amino Transf (AST/SGOT) 39 H 5-34 U/L Alanine Aminotransferase (ALT/SGPT) 22 0-55 U/L Alkaline Phosphatase 106 40-136 U/L Troponin T 77 H <=10 NG/L Pro-B-Type Natriuretic Peptide 71044.0 H <75.0 PG/ML Total Protein 6.9 6.4-8.2 GM/DL Albumin 3.9 3.2-4.5 GM/DL Lactic Acid Level 2.04 *H 0.50-2.00 MMOL/L Micro Results Microbiology 05/05/19 Blood Culture - Final, Complete No growth 05/05/19 Blood Culture - Final, Complete No growth My Orders Orders - CRISTOPHER RAMOS MD Cbc With Automated Diff (05/05/19 16:30) Comprehensive Metabolic Panel (05/05/19 16:30) Chest 1 View Ap/Pa Only (05/05/19 16:30) Albuterol/Ipra Inhalation Soln (Duoneb I (05/05/19 16:30) Magnesium (05/05/19 16:30) Ekg Tracing (05/05/19 16:30) O2 (05/05/19 16:30) Ed Iv/Invasive Line Start (05/05/19 16:30) Monitor-Rhythm Ecg Trace Only (05/05/19 16:30) Svn Small Volume Nebulizer (05/05/19 16:30) Lactic Acid Analyzer (05/05/19 16:30) Troponin T (05/05/19 16:30) Probnp Fs (05/05/19 16:35) Labetalol Injection (Normodyne Injection (05/05/19 17:00) Medications Given in ED Vital Signs/I&O Blood Pressure Mean: 138 Initial ECG Impression Date: May 05, 2019 Initial ECG Impression Time: 16:45 Initial ECG Rate: 91 Initial ECG Rhythm: Normal Sinus Initial ECG Impression: Nonspecific Changes Transfer of Care Time: 16:53 Care transferred to: Dr Chandra Departure Impression Primary Impression: CHF exacerbation Disposition: 02 XFER SHT-TRM HOSP Condition: Stable Transfer Time Spoke to Accepting Phy: 19:00 Transfer Time: 19:10 Transfer Facility: [facility] Method of Transfer: EMS Departure-Patient Inst. Referrals: NO,LOCAL PHYSICIAN (PCP/Family) Primary Care Physician CRISTOPHER RAMOS MD May 05, 2019 16:44
[2019-05-05 16:50] LABS: HEMATOCRIT 28 % (35-52); HEMOGLOBIN 7.6 G/DL (11.5-16.0); MEAN CORPUSCULAR HEMOGLOBIN 23 PG (25-34); MEAN CORPUSCULAR HGB CONC 28 G/DL (32-36); MEAN CORPUSCULAR VOLUME 82 FL (80-99); MEAN PLATELET VOLUME 11.8 FL (7.4-10.4); NEUTROPHILS % (AUTO) 67 % (42-75); PLATELET COUNT 172 10^3/uL (130-400); RED CELL DISTRIBUTION WIDTH 18.6 % (10.0-14.5); WHITE BLOOD COUNT 6.9 10^3/uL (4.3-11.0)
[2019-05-05 16:51] LABS: BASOPHILS # (AUTO) 0.1 10^3/uL (0.0-0.1); BASOPHILS % (AUTO) 1 % (0-10); EOSINOPHILS % (AUTO) 1 % (0-10); LYMPHOCYTES # (AUTO) 1.5 X 10^3 (1.0-4.0); LYMPHOCYTES % (AUTO) 22 % (12-44); MONOCYTES # (AUTO) 0.6 X 10^3 (0.0-1.0); MONOCYTES % (AUTO) 9 % (0-12); NEUTROPHILS # (AUTO) 4.6 X 10^3 (1.8-7.8)
[2019-05-05] MEDS ORDERED: LABETALOL HCL 20 MG/4 ML VIAL IV ONE (17:00)
--- NOTE | 2019-05-05 17:04 | Diagnostic Imaging Report ---
INDICATION: Chest pain and shortness of breath. Frontal chest obtained at 4:37 p.m. and compared to 05/01/2019. FINDINGS: There is cardiomegaly and central vascular congestion with interstitial edema. There is some infiltrate in the right lung base with a [id number] right pleural effusion. IMPRESSION: Cardiomegaly and central vascular congestion with interstitial edema. There is some infiltrate in the right lung base with small right pleural effusion. Dictated by: Dictated on workstation # [id number]
[2019-05-05 17:16] LABS: CREATININE SERUM 1.04 MG/DL (0.60-1.30); POTASSIUM 4.4 MMOL/L (3.6-5.0)
[2019-05-05 17:17] LABS: ALBUMIN 3.9 GM/DL (3.2-4.5); BILIRUBIN,TOTAL 0.7 MG/DL (0.1-1.0); CALCIUM 8.8 MG/DL (8.5-10.1); MAGNESIUM 2.1 MG/DL (1.8-2.4); TOTAL PROTEIN 6.9 GM/DL (6.4-8.2)
[2019-05-05] MEDS ORDERED: cefTRIAXone FOR IV USE 1,000 MG in WATER (STERILE) FOR INJECTION 10 ML IV ONE (17:30)
[2019-05-05] MEDS ORDERED: AZITHROMYCIN INJECTION 500 MG in NS (IVPB) 250 ML IV ONE (17:30)
[2019-05-05] MEDS ORDERED: FUROSEMIDE 40 MG/4 ML INJ (LASIX) IVP ONE (19:00)
[2019-05-05] MEDS ORDERED: fentaNYL INJECTION 100 MCG/2 ML AMP IVP ONE (19:00)
[2019-05-05 19:12] VITALS: BP 86/60
== END 2019-05-05 19:12 | disposition short-term general hospital (02) ==
LOC: EDUNIT# 16:10 → ER FS 16:11
DX: I11.0 Hypertensive heart disease with heart failure (principal); I50.9 Heart failure, unspecified; J44.9 Chronic obstructive pulmonary disease, unspecified; E78.00 Pure hypercholesterolemia, unspecified; I25.2 Old myocardial infarction; I25.10 Atherosclerotic heart disease of native coronary artery without angina pectoris; G43.909 Migraine, unspecified, not intractable, without status migrainosus; K21.9 Gastro-esophageal reflux disease without esophagitis; K74.60 Unspecified cirrhosis of liver; M17.0 Bilateral primary osteoarthritis of knee; M47.896 Other spondylosis, lumbar region; I73.9 Peripheral vascular disease, unspecified; Z87.891 Personal history of nicotine dependence; Z95.5 Presence of coronary angioplasty implant and graft; Z82.49 Family history of ischemic heart disease and other diseases of the circulatory system
CPT/HCPCS: 36415; 71045; 80053; 83605; 83735; 83880; 84484; 85025; 87040; 93005; 93041; 94640; 96365; 96375

== ENCOUNTER → 2020-09-02 | Outpatient (CLI) | payer MEDICARE, MEDICAID ==
[~2020-09-02] MED LIST changes: +ASPI-1238 PO; -ASPI-983 PO; -PANT40TA3 PO; +PANT40TA52 PO; +ZINC50TA11 PO; -ZINC50TA4 PO
== END ==
LOC: CARD 10:30
PROVIDERS: ATTEND Internal Medicine Cardiovascular Disease
DX: I25.10 Atherosclerotic heart disease of native coronary artery without angina pectoris (principal); I34.0 Nonrheumatic mitral (valve) insufficiency; I10 Essential (primary) hypertension; I73.89 Other specified peripheral vascular diseases; I51.7 Cardiomegaly; E78.5 Hyperlipidemia, unspecified
CPT/HCPCS: 93306

== ENCOUNTER → 2020-09-03 | Outpatient (CLI) | payer MEDICARE, MEDICAID ==
[~2020-09-03] VITALS: Ht 170 cm; Wt 81.0 kg
[~2020-09-03] MED LIST changes: +REGADENOSON 0.4 MG/5 ML SYR (LEXISCAN) IV ONE
[2020-09-03] MEDS: CATHETER FLUSH 10 ML SYR IV PRN ×2 (08:23→09:27)
[2020-09-03 09:34] VITALS: BP 180/78
--- NOTE | 2020-09-03 20:40 | STRESS TEST ---
DATE OF SERVICE: 09/03/2020 RESTING AND POST REGADENOSON TECHNETIUM-99M TETROFOSMIN SPECT CT IMAGING PRIMARY PHYSICIAN: Dr. Ferreira. CLINICAL DIAGNOSES: Coronary artery disease. Baseline images were carried out after injection of 10.09 mCi of technetium-99m Tetrofosmin. This was followed by 0.4 mg regadenoson and 31.3 mCi of technetium-99m Tetrofosmin for stress imaging. The electrocardiogram showed sinus rhythm. The electrocardiogram is consistent with left ventricular hypertrophy. There is diffuse ST and T-wave abnormality consistent with repolarization abnormality. The electrocardiogram did not change significantly with regadenoson infusion. Review of images at rest and following stress indicates a small to moderate amount of basal lateral ischemia. Gated images show normal global left ventricular systolic murmur, normal regional wall motion. Left ventricular ejection fraction is calculated to be 50%. Left ventricular end diastolic volume is 63 mL. TID is absent (1). CONCLUSIONS: 1. This study is indicative of a small to moderate amount of basal lateral ischemia. 2. Normal regional wall motion. 3. Normal global left ventricular systolic function with a calculated ejection fraction of 50%. Job ID: [id number] DocumentID: [id number] Dictated Date: 09/03/2020 14:04:40 Graphotype Operator Date: 09/03/2020 20:38:32 Dictated By: VICTOR M FERREIRA MD, MA, FACP, FACC,
== END ==
LOC: CARD 07:44
PROVIDERS: ATTEND Internal Medicine Cardiovascular Disease
DX: I25.10 Atherosclerotic heart disease of native coronary artery without angina pectoris (principal); E78.5 Hyperlipidemia, unspecified; I10 Essential (primary) hypertension; I73.9 Peripheral vascular disease, unspecified
CPT/HCPCS: 78452; 93017; A9502

== ENCOUNTER → 2020-09-24 | Day surgery (SDC) | payer MEDICARE, MEDICAID ==
[~2020-09-24] VITALS: Ht 167 cm; Wt 82.0 kg
[~2020-09-24] MED LIST changes: +AMLO-251 PO; -AMLO10TA7 PO; +ASPI-999 PO; +CARV12.53 PO; +HEParin (CATH LAB) 0 ML IV ONE; +LIDOCAINE 1% INJ 20 ML 20 ML VIAL ONE; +NS IV 1000 ML 1,000 ML IV SCH; +NS IV 1000 ML 1,000 ML ONE; -REGADENOSON 0.4 MG/5 ML SYR (LEXISCAN) IV ONE
[2020-09-24 10:05] VITALS: BP 178/87
[2020-09-24 10:35] LABS: HEMOGLOBIN 12.6 g/dL (11.5-16.0); MEAN PLATELET VOLUME 10.1 fL (9.0-12.2); WHITE BLOOD COUNT 7.9 10^3/uL (4.3-11.0)
[2020-09-24 10:45] LABS: PROTHROMBIN TIME PATIENT 13.8 SEC (12.2-14.7)
[2020-09-24 10:52] LABS: ALBUMIN 4.3 GM/DL (3.2-4.5); BILIRUBIN,TOTAL 0.3 MG/DL (0.1-1.0); CALCIUM 9.4 MG/DL (8.5-10.1); CREATININE SERUM 1.49 MG/DL (0.60-1.30); POTASSIUM 4.7 MMOL/L (3.6-5.0); TOTAL PROTEIN 7.5 GM/DL (6.4-8.2)
--- NOTE | 2020-09-24 11:23 | NUR ---
PER DR. MONTALVO, CASE CANCELLED AND PATIENT TO SEE DR. MONTALVO IN OFFICE TO DISCUSS LAB RESULTS. PATIENT VERBALIZED UNDERSTANDING. APPOINTMENT MADE FOR OCTOBER 11 AT 1130AM, PATIENT VERBALIZED UNDERSTANDING.
== END ==
LOC: CATH 09:48
PROVIDERS: ATTEND Internal Medicine Cardiovascular Disease
DX: Z53.9 Procedure and treatment not carried out, unspecified reason (principal); I25.10 Atherosclerotic heart disease of native coronary artery without angina pectoris; I10 Essential (primary) hypertension; E78.5 Hyperlipidemia, unspecified; R94.39 Abnormal result of other cardiovascular function study; I73.9 Peripheral vascular disease, unspecified; Z79.82 Long term (current) use of aspirin; Z79.899 Other long term (current) drug therapy; Z90.49 Acquired absence of other specified parts of digestive tract; Z87.891 Personal history of nicotine dependence; Z83.3 Family history of diabetes mellitus
CPT/HCPCS: 36415; 80053; 80061; 85027; 85610; 85730; 87081

== ENCOUNTER 2021-04-18 23:50 | Emergency (ER) | payer MEDICAID, MEDICARE ==
[~2021-04-18] VITALS: Ht 167.7 cm; Wt 75.7 kg
[~2021-04-18 23:50] MED LIST changes: -HEParin (CATH LAB) 0 ML IV ONE; -ISOS30TA3 PO; +ISOS30TA82 PO; -LIDOCAINE 1% INJ 20 ML 20 ML VIAL ONE; -NS IV 1000 ML 1,000 ML IV SCH; -NS IV 1000 ML 1,000 ML ONE
--- NOTE | 2021-04-19 00:11 | ED Chest Pain ---
General Chief Complaint: Chest Wall Stated Complaint: TROUBLE BREATHING/CHEST PAIN History of Present Illness Date Seen by Provider: April 19, 2021 Time Seen by Provider: 00:06 Initial Comments 66-year-old female presents with left-sided chest pain since 1 hour prior to arrival. Patient has had a cough for the last week and is concerned she has a chest cold. Denies fever or chills. History of CAD with 2 stents, she did not take a nitroglycerin as she did not think it was "chest pain". Pain radiates to her left shoulder from her central chest. Associated cough with only mild shortness of air. No swelling of extremities, no irregularity of her heart beat. No abdominal pain, nausea vomiting or diaphoresis. Allergies and Home Medications Allergies Coded Allergies: No Known Drug Allergies (Unverified , 05/05/19) Home Medications Ascorbate Calcium 500 Mg Tablet, 500 MG PO DAILY, (Reported) Aspirin 81 Mg Tab.chew, 81 MG PO DAILY, (Reported) Atorvastatin Calcium 80 Mg Tablet, 80 MG PO DAILY, (Reported) Carvedilol 12.5 Mg Tablet, 12.5 MG PO BID, (Reported) Clopidogrel Bisulfate 75 Mg Tablet, 75 MG PO DAILY, (Reported) Isosorbide Mononitrate 30 Mg Tab.er.24h, 30 MG PO DAILY, (Reported) Losartan Potassium 100 Mg Tablet, 100 MG PO DAILY, (Reported) Multivitamin 1 Each Tablet, 1 TAB PO DAILY, (Reported) Nitroglycerin 0.4 Mg Tab.subl, 0.4 MG SL UD PRN for CHEST PAIN Prescribed by: ATTILA CRESPO on 04/19/21 0057 Pantoprazole Sodium 40 Mg Tablet.dr, 40 MG PO DAILY, (Reported) Patient Home Medication List Home Medication List Reviewed: Yes Review of Systems Review of Systems Constitutional: No fever, No malaise, No weakness EENTM: No Symptoms Reported Respiratory: Cough, Shortness of Air; Denies Stridor, Denies Wheezing Cardiovascular: See HPI, Chest Pain; Denies Edema, Denies Palpitations, Denies Syncope Gastrointestinal: Denies Abdominal Pain, Denies Diarrhea, Denies Nausea, Denies Poor Appetite, Denies Vomiting Musculoskeletal: No back pain, No joint pain Skin: No change in color, No rash Psychiatric/Neurological: Denies Anxiety, Denies Depressed Past Iflixcr-Hpbadm-Vpcdev Hx Past Med/Social Hx: Reviewed Nursing Past Med/Soc Hx Patient Social History Drug of Choice: HX ETOH ABUSE Smoking Status: Former Smoker Type Used: Cigarettes Former Smoker, Quit: Nov 22, 2015 2nd Hand Smoke Exposure: No Recent Hopitalizations: No Immunizations Up To Date Tetanus Booster (TDap): Unknown Date of Pneumonia Vaccine: Sep 22, 2018 Date of Influenza Vaccine: Jul 23, 2020 Seasonal Allergies Seasonal Allergies: No Past Medical History Surgeries: Yes (CARDIAC CATH--STENTS X 2; CERVICAL CONIZATION) Gallbladder Respiratory: Yes COPD Currently Using CPAP: No Cardiac: Yes Coronary Artery Disease, Heart Murmur, High Cholesterol, Hypertension Neurological: No Headaches /Migraines Reproductive Disorders: Yes (CERVICAL DYSPLASIA. 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 4.8oz. 68.592968nx; 29.40 BMI Method:Stated General Appearance: No Apparent Distress, WD/WN HEENT: PERRL/EOMI, Normal ENT Inspection Neck: Full Range of Motion, Non Tender, Supple Respiratory: Chest Non Tender, Lungs Clear, Normal Breath Sounds, No Accessory Muscle Use, No Respiratory Distress Cardiovascular: Regular Rate, Rhythm, No Edema, No JVD, Normal Peripheral Pulses Gastrointestinal: Non Tender, Soft Extremity: Normal Capillary Refill, Non Tender Neurologic/Psychiatric: Alert, Oriented x3, No Motor/Sensory Deficits, Normal Mood/Affect Skin: Normal Color, Warm/Dry Focused Exam Lactate Level 04/19/21 00:10: Lactic Acid Level 1.40 Lactic Acid Level Laboratory Tests Test 04/19/21 00:10 Lactic Acid Level 1.40 MMOL/L (0.50-2.00) Progress/Results/Core Measures Results/Orders Lab Results Laboratory Tests Test 04/19/21 00:00 04/19/21 00:10 Range/Units White Blood Count 7.5 4.3-11.0 10^3/uL Red Blood Count 3.13 L 4.35-5.85 10^6/uL Hemoglobin 8.0 L 11.5-16.0 G/DL Hematocrit 28 L 35-52 % Mean Corpuscular Volume 89 80-99 FL Mean Corpuscular Hemoglobin 26 25-34 PG Mean Corpuscular Hemoglobin Concent 29 L 32-36 G/DL Red Cell Distribution Width 15.5 H 10.0-14.5 % Platelet Count 235 130-400 10^3/uL Mean Platelet Volume 11.1 H 7.4-10.4 FL Immature Granulocyte % (Auto) 1 % Neutrophils (%) (Auto) 53 42-75 % Lymphocytes (%) (Auto) 32 12-44 % Monocytes (%) (Auto) 9 0-12 % Eosinophils (%) (Auto) 5 0-10 % Basophils (%) (Auto) 1 0-10 % Neutrophils # (Auto) 4.0 1.8-7.8 X 10^3 Lymphocytes # (Auto) 2.4 1.0-4.0 X 10^3 Monocytes # (Auto) 0.7 0.0-1.0 X 10^3 Eosinophils # (Auto) 0.3 0.0-0.3 10^3/uL Basophils # (Auto) 0.0 0.0-0.1 10^3/uL Immature Granulocyte # (Auto) 0.0 0.0-0.1 10^3/uL Sodium Level 137 135-145 MMOL/L Potassium Level 4.1 3.6-5.0 MMOL/L Chloride Level 108 H 98-107 MMOL/L Carbon Dioxide Level 16 L 21-32 MMOL/L Anion Gap 13 5-14 MMOL/L Blood Urea Nitrogen 15 7-18 MG/DL Creatinine 1.21 0.60-1.30 MG/DL Estimat Glomerular Filtration Rate 45 BUN/Creatinine Ratio 12 Glucose Level 108 H 70-105 MG/DL Lactic Acid Level 1.40 0.50-2.00 MMOL/L Calcium Level 8.8 8.5-10.1 MG/DL Corrected Calcium 8.9 8.5-10.1 MG/DL Total Bilirubin 0.2 0.1-1.0 MG/DL Aspartate Amino Transf (AST/SGOT) 25 5-34 U/L Alanine Aminotransferase (ALT/SGPT) 13 0-55 U/L Alkaline Phosphatase 113 40-136 U/L Troponin I < 0.30 <0.30 NG/ML Total Protein 6.3 L 6.4-8.2 GM/DL Albumin 3.9 3.2-4.5 GM/DL My Orders Orders - ATITLA CRESPO DO Chest 1 View Ap/Pa Only (04/18/21 23:56) Ekg Tracing (04/19/21 00:01) Cbc With Automated Diff (04/19/21 00:10) Comprehensive Metabolic Panel (04/19/21 00:10) Troponin I Fs (04/19/21 00:10) Lactic Acid Analyzer (04/19/21 00:10) Ed Iv/Invasive Line Start (04/19/21 00:10) Aspirin Chewable Tablet (Baby Aspirin Ch (04/19/21 00:15) Nitroglycerin 0.4 Mg Btl 25's (Nitrostat (04/19/21 00:15) Medications Given in ED Current Medications Medications Dose Ordered Sig/Zulma Route Start Time Stop Time Status Last Admin Dose Admin Aspirin 324 mg ONCE ONCE PO 04/19/21 00:15 04/19/21 00:16 DC 04/19/21 00:18 324 MG Nitroglycerin 0.4 mg NEEDED PRN SL 04/19/21 00:15 04/19/21 00:19 0.4 MG Vital Signs/I&O 04/19/21 00:02 Temp 36.2 Pulse 85 Resp 20 B/P (MAP) 164/68 (100) Pulse Ox 96 O2 Delivery Room Air Progress Progress Note : Time: 00:33 Progress Note chest pain resolved after 1 NTG 0053- remains free of CP since 1 NTG. Admits Hx of "low iron", but does not take her iron pills. Last checked by her PCP 1 month ago. Also, says she does not see Dr Ferreira anymore as she missed too many appt's. Advised she will need to establish another [employer] in [place], to take NTG as needed for further episodes of CP and to continue her other daily meds. pt admits her NTG Rx bottle is from 2015. Advised to get rid of it and she will have a new bottle tomorrow. Initial ECG Impression Date: April 19, 2021 Initial ECG Impression Time: 23:59 Initial ECG Rate: 83 Initial ECG Rhythm: Normal Sinus Initial ECG Comparisson: Changed (from ECG 05/05/2019 - now with lateral ST depression and early repol V4-6) Comment [facility] Diagnostic Imaging Diagonstic Imaging: Xray Plain Films/CT/US/NM/MRI: chest Comments no acute process. Lungs clear without infiltrate. Normal heart size Reviewed: Reviewed by Me Departure Impression Primary Impression: Chest pain Qualified Codes: R07.9 - Chest pain, unspecified Additional Impressions: Anemia Qualified Codes: D64.9 - Anemia, unspecified Acute angina Disposition: HOME, SELF-CARE Condition: Improved Departure-Patient Inst. Decision time for Depature: 00:55 Referrals: Jessica EMANUEL MD, BASHAR J MD NO,LOCAL PHYSICIAN (PCP) Primary Care Physician Patient Instructions: Angina (DC), Anemia, Possibly From Low Iron, Adult ED Add. Discharge Instructions: Call one of the [employer] listed above (on Wednesday) to schedule a follow up appointment. Take NTG for any further episodes of chest pain. You can take one NTG every 5 minutes as needed for chest pain. If you end up taking 3, call 911 or go to the nearest ER. Follow up with your PCP in 1 week regarding your low blood iron. All discharge instructions reviewed with patient and/or family. Voiced understanding. Scripts Nitroglycerin (Nitroglycerin) 0.4 Mg Tab.subl 0.4 MG SL UD PRN for CHEST PAIN, #20 TAB Prov: ATTILA CRESPO DO 04/19/21 ATTILA CRESPO DO April 19, 2021 00:11
[2021-04-19] MEDS ORDERED: ASPIRIN 81 MG CHEW (CHILDREN'S ASA) PO ONE (00:15)
[2021-04-19] MEDS ORDERED: NITROGLYCERIN 0.4 MG SL TABS BTL 25'S SL PRN (00:15)
[2021-04-19 00:25] LABS: BASOPHILS % (AUTO) 1 % (0-10); EOSINOPHILS # (AUTO) 0.3 10^3/uL (0.0-0.3); EOSINOPHILS % (AUTO) 5 % (0-10); HEMATOCRIT 28 % (35-52); LYMPHOCYTES # (AUTO) 2.4 X 10^3 (1.0-4.0); LYMPHOCYTES % (AUTO) 32 % (12-44); MEAN CORPUSCULAR HEMOGLOBIN 26 PG (25-34); MEAN CORPUSCULAR HGB CONC 29 G/DL (32-36); MEAN CORPUSCULAR VOLUME 89 FL (80-99); MEAN PLATELET VOLUME 11.1 FL (7.4-10.4); MONOCYTES # (AUTO) 0.7 X 10^3 (0.0-1.0); MONOCYTES % (AUTO) 9 % (0-12); NEUTROPHILS % (AUTO) 53 % (42-75); PLATELET COUNT 235 10^3/uL (130-400); WHITE BLOOD COUNT 7.5 10^3/uL (4.3-11.0)
[2021-04-19 00:45] LABS: ALANINE AMINOTRANSFERASE 13 U/L (0-55); ALKALINE PHOSPHATASE 113 U/L (40-136); BILIRUBIN,TOTAL 0.2 MG/DL (0.1-1.0); BUN/CREATININE RATIO 12; CALCIUM 8.8 MG/DL (8.5-10.1); CARBON DIOXIDE 16 MMOL/L (21-32); CHLORIDE 108 MMOL/L (98-107); CREATININE SERUM 1.21 MG/DL (0.60-1.30); GFR ESTIMATED 45; GLUCOSE 108 MG/DL (70-105); POTASSIUM 4.1 MMOL/L (3.6-5.0); SODIUM 137 MMOL/L (135-145)
[2021-04-19 00:46] LABS: ALBUMIN 3.9 GM/DL (3.2-4.5); TOTAL PROTEIN 6.3 GM/DL (6.4-8.2)
[2021-04-19] MEDS ORDERED: NITR0.4T39 SL (00:57)
[2021-04-19 01:01] VITALS: BP 162/51
--- NOTE | 2021-04-19 07:35 | Diagnostic Imaging Report ---
INDICATION: soa COMPARISON: 05/05/2019 FINDINGS: Single frontal view of the chest demonstrates normal heart size and pulmonary vascularity. The lungs are well aerated and clear. No large pleural effusion or pneumothorax is seen. Background moderate COPD changes are noted. The visualized osseous structures show no acute abnormalities. IMPRESSION: 1. No acute cardiopulmonary process. 2. Background COPD changes. Dictated by: Dictated on workstation # [id number]
== END 2021-04-19 01:01 | disposition home or self-care (01) ==
LOC: EDUNIT# 23:50 → ER FS 23:54
DX: I25.119 Atherosclerotic heart disease of native coronary artery with unspecified angina pectoris (principal); D64.9 Anemia, unspecified; J44.9 Chronic obstructive pulmonary disease, unspecified; I10 Essential (primary) hypertension; E78.00 Pure hypercholesterolemia, unspecified; K21.9 Gastro-esophageal reflux disease without esophagitis; G89.29 Other chronic pain; M54.9 Dorsalgia, unspecified; Z87.891 Personal history of nicotine dependence; Z95.5 Presence of coronary angioplasty implant and graft; Z79.82 Long term (current) use of aspirin; Z79.899 Other long term (current) drug therapy
CPT/HCPCS: 36415; 71045; 80053; 83605; 84484; 85025; 93005

== ENCOUNTER 2021-05-02 18:40 | Emergency (ER) | payer MEDICARE, MEDICAID ==
[~2021-05-02] VITALS: Ht 167 cm; Wt 73.2 kg
[~2021-05-02 18:40] MED LIST changes: +NITR0.4T39 SL
--- NOTE | 2021-05-02 19:15 | ED General ---
General Chief Complaint: General Problems/Pain Stated Complaint: TROUBLE WALKING History of Present Illness Date Seen by Provider: May 02, 2021 Time Seen by Provider: 18:45 Initial Comments 66-year-old female presents with generalized weakness, trouble walking, shortness of breath. Her symptoms are chronic and been going on for at least a month and longer for some of them. Patient has a history of low hemoglobin from what sounds like it ulcer and chronic illness. Patient is concerned that maybe her hemoglobin is got too low. Patient has no acute complaints. She denies chest pain, nausea, vomiting. Allergies and Home Medications Allergies Coded Allergies: No Known Drug Allergies (Unverified , 05/05/19) Home Medications Ascorbate Calcium 500 Mg Tablet, 500 MG PO DAILY, (Reported) Aspirin 81 Mg Tab.chew, 81 MG PO DAILY, (Reported) Atorvastatin Calcium 80 Mg Tablet, 80 MG PO DAILY, (Reported) Carvedilol 12.5 Mg Tablet, 12.5 MG PO BID, (Reported) Clopidogrel Bisulfate 75 Mg Tablet, 75 MG PO DAILY, (Reported) Isosorbide Mononitrate 30 Mg Tab.er.24h, 30 MG PO DAILY, (Reported) Losartan Potassium 100 Mg Tablet, 100 MG PO DAILY, (Reported) Multivitamin 1 Each Tablet, 1 TAB PO DAILY, (Reported) Nitroglycerin 0.4 Mg Tab.subl, 0.4 MG SL UD PRN for CHEST PAIN Prescribed by: ATTILA CRESPO on 04/19/21 0057 Pantoprazole Sodium 40 Mg Tablet.dr, 40 MG PO DAILY, (Reported) Patient Home Medication List Home Medication List Reviewed: Yes Review of Systems Review of Systems Constitutional: No chills, No fever; malaise, weakness EENTM: no symptoms reported Respiratory: dyspnea on exertion (Chronic), short of breath (Chronic) Cardiovascular: No chest pain, No palpitations Gastrointestinal: No abdominal pain, No nausea, No vomiting Genitourinary: no symptoms reported Musculoskeletal: see HPI Skin: no symptoms reported Psychiatric/Neurological: No Symptoms Reported Hematologic/Lymphatic: No Symptoms Reported Past Nyphcjh-Wfxirh-Hriipl Hx Past Med/Social Hx: Reviewed Nursing Past Med/Soc Hx Patient Social History Alcohol Use: Past History Drug of Choice: HX ETOH ABUSE Smoking Status: Current Someday Smoker Type Used: Cigarettes Former Smoker, Quit: Nov 22, 2015 2nd Hand Smoke Exposure: No Recent Hopitalizations: No Immunizations Up To Date Tetanus Booster (TDap): Unknown Date of Pneumonia Vaccine: Sep 22, 2018 Date of Influenza Vaccine: Jul 23, 2020 Seasonal Allergies Seasonal Allergies: No Past Medical History Surgeries: Yes (CARDIAC CATH--STENTS X 2; CERVICAL CONIZATION) Gallbladder Respiratory: Yes COPD Currently Using CPAP: No Cardiac: Yes Coronary Artery Disease, Heart Murmur, High Cholesterol, Hypertension Neurological: No Headaches /Migraines Reproductive Disorders: Yes (CERVICAL DYSPLASIA. 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 4.8oz. 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 Norm as Tested Skin: Pallor Lymphatic: No Adenopathy Progress/Results/Core Measures Suspected Sepsis SIRS Temperature: Pulse: Respiratory Rate: Laboratory Tests 05/02/21 19:00: White Blood Count 7.4 Blood Pressure / Mean: Laboratory Tests 05/02/21 19:00: Creatinine 1.19, Platelet Count 236, Total Bilirubin 0.5 Results/Orders Lab Results Laboratory Tests Test 05/02/21 19:00 05/02/21 19:08 05/02/21 19:25 Range/Units White Blood Count 7.4 4.3-11.0 10^3/uL Red Blood Count 3.13 L 4.35-5.85 10^6/uL Hemoglobin 7.6 L 11.5-16.0 G/DL Hematocrit 26 L 35-52 % Mean Corpuscular Volume 84 80-99 FL Mean Corpuscular Hemoglobin 24 L 25-34 PG Mean Corpuscular Hemoglobin Concent 29 L 32-36 G/DL Red Cell Distribution Width 16.3 H 10.0-14.5 % Platelet Count 236 130-400 10^3/uL Mean Platelet Volume 12.1 H 7.4-10.4 FL Immature Granulocyte % (Auto) 1 % Neutrophils (%) (Auto) 56 42-75 % Lymphocytes (%) (Auto) 33 12-44 % Monocytes (%) (Auto) 9 0-12 % Eosinophils (%) (Auto) 2 0-10 % Basophils (%) (Auto) 1 0-10 % Neutrophils # (Auto) 4.1 1.8-7.8 X 10^3 Lymphocytes # (Auto) 2.4 1.0-4.0 X 10^3 Monocytes # (Auto) 0.6 0.0-1.0 X 10^3 Eosinophils # (Auto) 0.1 0.0-0.3 10^3/uL Basophils # (Auto) 0.0 0.0-0.1 10^3/uL Immature Granulocyte # (Auto) 0.1 0.0-0.1 10^3/uL Sodium Level 138 135-145 MMOL/L Potassium Level 4.0 3.6-5.0 MMOL/L Chloride Level 108 H 98-107 MMOL/L Carbon Dioxide Level 14 L 21-32 MMOL/L Anion Gap 16 H 5-14 MMOL/L Blood Urea Nitrogen 15 7-18 MG/DL Creatinine 1.19 0.60-1.30 MG/DL Estimat Glomerular Filtration Rate 45 BUN/Creatinine Ratio 13 Glucose Level 122 H 70-105 MG/DL Calcium Level 9.2 8.5-10.1 MG/DL Corrected Calcium 9.0 8.5-10.1 MG/DL Magnesium Level 2.0 1.6-2.4 MG/DL Total Bilirubin 0.5 0.1-1.0 MG/DL Aspartate Amino Transf (AST/SGOT) 22 5-34 U/L Alanine Aminotransferase (ALT/SGPT) 11 0-55 U/L Alkaline Phosphatase 84 40-136 U/L Total Protein 6.8 6.4-8.2 GM/DL Albumin 4.3 3.2-4.5 GM/DL Glucometer 115 H 70-110 MG/DL Urine Color YELLOW Urine Clarity CLEAR Urine pH 6.0 5-9 Urine Specific [place] 1.020 1.016-1.022 Urine Protein NEGATIVE NEGATIVE Urine Glucose (UA) NEGATIVE NEGATIVE Urine Ketones NEGATIVE NEGATIVE Urine Nitrite NEGATIVE NEGATIVE Urine Bilirubin NEGATIVE NEGATIVE Urine Urobilinogen 0.2 < = 1.0 MG/DL Urine Leukocyte Esterase NEGATIVE NEGATIVE Urine RBC (Auto) TRACE-I NEGATIVE Urine RBC 5-10 H /HPF Urine WBC 0-2 /HPF Urine Squamous Epithelial Cells 5-10 /HPF Urine Crystals NONE /LPF Urine Bacteria TRACE /HPF Urine Casts PRESENT /LPF Urine Hyaline Casts 2-5 H /LPF Urine Mucus NEGATIVE /LPF Urine Culture Indicated NO My Orders Orders - AKILA ROSAS DO Cbc With Automated Diff (05/02/21 18:53) Comprehensive Metabolic Panel (05/02/21 18:53) Magnesium (05/02/21 18:53) Ua Culture If Indicated (05/02/21 18:53) Accucheck Stat ONCE (05/02/21 18:53) Chest 1 View Ap/Pa Only (05/02/21 19:46) Vital Signs/I&O 05/02/21 18:45 Temp 36.1 Pulse 98 Resp 22 B/P (MAP) 146/73 (97) O2 Delivery Room Air Capillary Refill : Point of Care Testing Finger Stick Blood Glucose: 105 Progress Note : Progress Note Patient's labs are near her baseline. There is no significant findings on physical exam. I recommend she follow-up with her primary care provider Wednesday or Wednesday of next week for continued care and further outpatient evaluation. Patient stable on discharge Departure Impression Primary Impression: Anemia Qualified Codes: D50.9 - Iron deficiency anemia, unspecified Additional Impression: COPD (chronic obstructive pulmonary disease) Qualified Codes: J42 - Unspecified chronic bronchitis Disposition: HOME, SELF-CARE Condition: Stable Departure-Patient Inst. Referrals: DOMINIC JONES APRN (PCP/Family) Primary Care Physician Patient Instructions: Anemia, Possibly From Low Iron, Adult ED, Risk Factors for COPD Add. Discharge Instructions: Follow-up with your primary care provider next week for recheck of your symptoms and continued work-up All discharge instructions reviewed with patient and/or family. Voiced understanding. AKILA ROSAS DO May 02, 2021 19:15
[2021-05-02 19:31] LABS: HEMOGLOBIN 7.6 G/DL (11.5-16.0); MEAN CORPUSCULAR HEMOGLOBIN 24 PG (25-34); WHITE BLOOD COUNT 7.4 10^3/uL (4.3-11.0)
[2021-05-02 19:32] LABS: BASOPHILS % (AUTO) 1 % (0-10); EOSINOPHILS # (AUTO) 0.1 10^3/uL (0.0-0.3); EOSINOPHILS % (AUTO) 2 % (0-10); HEMATOCRIT 26 % (35-52); LYMPHOCYTES # (AUTO) 2.4 X 10^3 (1.0-4.0); LYMPHOCYTES % (AUTO) 33 % (12-44); MEAN CORPUSCULAR HGB CONC 29 G/DL (32-36); MEAN CORPUSCULAR VOLUME 84 FL (80-99); MEAN PLATELET VOLUME 12.1 FL (7.4-10.4); MONOCYTES # (AUTO) 0.6 X 10^3 (0.0-1.0); MONOCYTES % (AUTO) 9 % (0-12); NEUTROPHILS # (AUTO) 4.1 X 10^3 (1.8-7.8); NEUTROPHILS % (AUTO) 56 % (42-75); PLATELET COUNT 236 10^3/uL (130-400)
[2021-05-02 19:36] LABS: BACTERIA,URINE TRACE /HPF; BILIRUBIN,URINE NEGATIVE (NEGATIVE); CLARITY,URINE CLEAR; COLOR,URINE YELLOW; GLUCOSE, URINE (UA) NEGATIVE (NEGATIVE); KETONES,URINE NEGATIVE (NEGATIVE); LEUKOCYTE ESTERASE ,URINE NEGATIVE (NEGATIVE); NITRITE,URINE NEGATIVE (NEGATIVE); PROTEIN,URINE NEGATIVE (NEGATIVE); WBC,URINE 0-2 /HPF
[2021-05-02 19:44] LABS: ALBUMIN 4.3 GM/DL (3.2-4.5); BILIRUBIN,TOTAL 0.5 MG/DL (0.1-1.0); CALCIUM 9.2 MG/DL (8.5-10.1); CREATININE SERUM 1.19 MG/DL (0.60-1.30); TOTAL PROTEIN 6.8 GM/DL (6.4-8.2)
--- NOTE | 2021-05-02 20:12 | Diagnostic Imaging Report ---
INDICATION: Shortness of breath with history of COPD. COMPARISON STUDY: Chest from 04/18/2021. FINDINGS: Frontal view of the chest demonstrates development of small pleural effusions. IMPRESSION: The heart size appears a little larger with development of small pleural effusions. Vascularity is mildly increased. Findings are consistent with congestive heart failure. Dictated by: Dictated on workstation # [id number]
[2021-05-02 20:21] VITALS: BP 122/62
[2021-05-07] MEDS ORDERED: CHOL10007 PO (10:53)
[2021-05-07] MEDS ORDERED: SENN-234 PO (10:53)
[2021-05-07] MEDS ORDERED: GUAI120013 PO (10:53)
[2021-05-07] MEDS ORDERED: CARV6.252 PO (10:53)
[2021-05-07] MEDS ORDERED: MULT-1067 PO (10:53)
[2021-05-07] MEDS ORDERED: NITR0.4T42 SL (10:53)
== END 2021-05-02 20:18 | disposition home or self-care (01) ==
LOC: EDUNIT# 18:40 → ER FS 18:42
DX: D64.9 Anemia, unspecified (principal); J44.9 Chronic obstructive pulmonary disease, unspecified; I10 Essential (primary) hypertension; K21.9 Gastro-esophageal reflux disease without esophagitis; E78.00 Pure hypercholesterolemia, unspecified; I25.10 Atherosclerotic heart disease of native coronary artery without angina pectoris; F17.210 Nicotine dependence, cigarettes, uncomplicated; Z79.82 Long term (current) use of aspirin; Z79.899 Other long term (current) drug therapy
CPT/HCPCS: 36415; 71045; 80053; 81000; 82947; 83735; 85025

== ENCOUNTER 2021-05-06 08:19 | Outpatient (CLI) | payer MEDICARE, MEDICAID ==
[~2021-05-06] VITALS: Wt 73.2 kg
[2021-05-06 09:00] VITALS: BP 124/77
[2021-05-06] MEDS ORDERED: NS IV 500 ML 500 ML IV SCH (09:30)
[2021-05-06 09:50] VITALS: BP 165/77
[2021-05-06 10:05] VITALS: BP 170/68
[2021-05-06 13:10] VITALS: BP 182/82
[2021-05-07] MEDS ORDERED: MULT-1067 PO (10:53)
[2021-05-07] MEDS ORDERED: NITR0.4T42 SL (10:53)
[2021-05-07] MEDS ORDERED: CARV6.252 PO (10:53)
[2021-05-07] MEDS ORDERED: CHOL10007 PO (10:53)
[2021-05-07] MEDS ORDERED: GUAI120013 PO (10:53)
[2021-05-07] MEDS ORDERED: SENN-234 PO (10:53)
[2021-05-08] MEDS ORDERED: CLOP75TA69 PO (11:04)
[2021-05-08] MEDS ORDERED: SUCR1TAB PO (11:04)
[2021-05-08] MEDS ORDERED: PANT40TA52 PO (11:04)
[2021-05-08] MEDS ORDERED: FURO-125 PO (12:59)
[2021-05-08] MEDS ORDERED: POTA10TA PO (12:59)
[2021-05-08] MEDS ORDERED: POTA20TA8 PO (12:59)
== END 2021-05-06 13:10 | disposition still patient (30) ==
LOC: SDC 08:19
PROVIDERS: ATTEND Nurse Practitioner Family
DX: D64.9 Anemia, unspecified (principal); Z86.79 Personal history of other diseases of the circulatory system
CPT/HCPCS: 36430; 86850; 86900; 86901; 86920; P9016

== ENCOUNTER 2021-05-06 13:26 | Inpatient (IN) | payer MEDICARE, MEDICAID ==
[~2021-05-06] VITALS: Ht 167 cm; Wt 72.0 kg
--- NOTE | 2021-05-06 13:41 | ED Respiratory ---
General Chief Complaint: Respiratory Problems Stated Complaint: SOB Source: patient Exam Limitations: no limitations History of Present Illness Date Seen by Provider: May 06, 2021 Time Seen by Provider: 13:41 Initial Comments To ER with shortness of breath ongoing for about 2 months. She is had some left-sided upper back pain that requires her to lay is in a certain position in bed at night for comfort. She has a history of COPD. She was a former smoker but does not smoke anymore. She does not wear oxygen at home but she used to. She has inhalers that she has used previously but they are empty and need to be refilled. Today she was receiving 1 unit of packed red cells in the outpatient department for anemia with hemoglobin of 7 when she brought these symptoms up with the nurse and was referred to the emergency room. Timing/Duration: constant Severity: moderate Prior Episodes/Possible Cause: no prior episodes Associated Symptoms: shortness of breath Allergies and Home Medications Allergies Coded Allergies: No Known Drug Allergies (Unverified , 05/05/19) Home Medications Ascorbate Calcium 500 Mg Tablet, 500 MG PO DAILY, (Reported) Aspirin 81 Mg Tab.chew, 81 MG PO DAILY, (Reported) Atorvastatin Calcium 80 Mg Tablet, 80 MG PO DAILY, (Reported) Carvedilol 12.5 Mg Tablet, 12.5 MG PO BID, (Reported) Clopidogrel Bisulfate 75 Mg Tablet, 75 MG PO DAILY, (Reported) Isosorbide Mononitrate 30 Mg Tab.er.24h, 30 MG PO DAILY, (Reported) Losartan Potassium 100 Mg Tablet, 100 MG PO DAILY, (Reported) Multivitamin 1 Each Tablet, 1 TAB PO DAILY, (Reported) Nitroglycerin 0.4 Mg Tab.subl, 0.4 MG SL UD PRN for CHEST PAIN Prescribed by: ATTILA CRESPO on 04/19/21 0057 Pantoprazole Sodium 40 Mg Tablet.dr, 40 MG PO DAILY, (Reported) Patient Home Medication List Home Medication List Reviewed: Yes Review of Systems Review of Systems Constitutional: see HPI EENTM: see HPI Respiratory: no symptoms reported Cardiovascular: no symptoms reported Genitourinary: no symptoms reported Musculoskeletal: no symptoms reported Skin: no symptoms reported Psychiatric/Neurological: No Symptoms Reported Hematologic/Lymphatic: No Symptoms Reported Past Imnvamf-Lqhmjw-Frcztk Hx Patient Social History Drug of Choice: HX ETOH ABUSE Type Used: Cigarettes Former Smoker, Quit: Nov 22, 2015 2nd Hand Smoke Exposure: No Recent Hopitalizations: No Immunizations Up To Date Tetanus Booster (TDap): Unknown Date of Pneumonia Vaccine: Sep 22, 2018 Date of Influenza Vaccine: Jul 23, 2020 Seasonal Allergies Seasonal Allergies: No Past Medical History Surgeries: Yes (CARDIAC CATH--STENTS X 2; CERVICAL CONIZATION) Gallbladder Respiratory: Yes COPD Currently Using CPAP: No Cardiac: Yes Coronary Artery Disease, Heart Murmur, High Cholesterol, Hypertension Neurological: No Headaches /Migraines Reproductive Disorders: Yes (CERVICAL DYSPLASIA. --S/P CRYOTHERAPY AND CONIZATION) [employer]OR [employer] History: Menopausal Genitourinary: Yes Kidney Infection Gastrointestinal: Yes Gastroesophageal Reflux Musculoskeletal: Yes (ARTHRITIS --KNEES, BACK) Arthritis, Chronic Back Pain Endocrine: No HEENT: Yes Cancer: No Psychosocial: No Integumentary: No Blood Disorders: Yes (ANEMIA --CURRENT PROBLEM STARTING 12/08/18) Family Medical History Heart Disease, Diabetes Physical Exam Vital Signs - First Documented 05/06/21 05/06/21 13:26 13:30 Temp 36.4 Pulse 95 Resp 19 B/P (MAP) 154/80 (104) Pulse Ox 92 O2 Delivery Room Air O2 Flow Rate 2.00 Capillary Refill : Height: 5'6.00" Weight: 150lbs. 4.8oz. [id number]; 26.00 BMI Method:Stated General Appearance: WD/WN, no apparent distress Eyes: Bilateral Eye Normal Inspection, Bilateral Eye PERRL, Bilateral Eye EOMI HEENT: PERRL/EOMI, normal ENT inspection Neck: non-tender, full range of motion Respiratory: normal breath sounds, no respiratory distress, no accessory muscle use, other (90 to 91% room air) Cardiovascular: regular rate, rhythm, no murmur Gastrointestinal: normal bowel sounds, non tender, soft Neurologic/Psychiatric: alert, normal mood/affect, oriented x 3 Skin: normal color, warm/dry Progress/Results/Core Measures Suspected Sepsis SIRS Temperature: Pulse: Respiratory Rate: Laboratory Tests 05/06/21 13:45: White Blood Count 9.0 Blood Pressure / Mean: Laboratory Tests 05/06/21 13:45: Creatinine 1.05, Platelet Count 239, Total Bilirubin 1.2H Results/Orders Lab Results Laboratory Tests Test 05/06/21 13:45 Range/Units White Blood Count 9.0 4.3-11.0 10^3/uL Red Blood Count 3.64 L 3.80-5.11 10^6/uL Hemoglobin 9.0 L 11.5-16.0 g/dL Hematocrit 31 L 35-52 % Mean Corpuscular Volume 84 80-99 fL Mean Corpuscular Hemoglobin 25 25-34 pg Mean Corpuscular Hemoglobin Concent 29 L 32-36 g/dL Red Cell Distribution Width 15.8 H 10.0-14.5 % Platelet Count 239 130-400 10^3/uL Mean Platelet Volume 11.9 9.0-12.2 fL Immature Granulocyte % (Auto) 1 % Neutrophils (%) (Auto) 82 H 42-75 % Lymphocytes (%) (Auto) 11 L 12-44 % Monocytes (%) (Auto) 6 0-12 % Eosinophils (%) (Auto) 0 0-10 % Basophils (%) (Auto) 0 0-10 % Neutrophils # (Auto) 7.3 1.8-7.8 10^3/uL Lymphocytes # (Auto) 1.0 1.0-4.0 10^3/uL Monocytes # (Auto) 0.5 0.0-1.0 10^3/uL Eosinophils # (Auto) 0.0 0.0-0.3 10^3/uL Basophils # (Auto) 0.0 0.0-0.1 10^3/uL Immature Granulocyte # (Auto) 0.1 0.0-0.1 10^3/uL Sodium Level 139 135-145 MMOL/L Potassium Level 4.1 3.6-5.0 MMOL/L Chloride Level 111 H 98-107 MMOL/L Carbon Dioxide Level 15 L 21-32 MMOL/L Anion Gap 13 5-14 MMOL/L Blood Urea Nitrogen 17 7-18 MG/DL Creatinine 1.05 0.60-1.30 MG/DL Estimat Glomerular Filtration Rate 52 BUN/Creatinine Ratio 16 Glucose Level 138 H 70-105 MG/DL Calcium Level 9.1 8.5-10.1 MG/DL Corrected Calcium 8.9 8.5-10.1 MG/DL Iron Level Total Bilirubin 1.2 H 0.1-1.0 MG/DL Aspartate Amino Transf (AST/SGOT) 26 5-34 U/L Alanine Aminotransferase (ALT/SGPT) 12 0-55 U/L Alkaline Phosphatase 68 40-136 U/L Troponin I 0.295 *H <0.028 NG/ML B-Type Natriuretic Peptide 2863.8 H <100.0 PG/ML Total Protein 7.1 6.4-8.2 GM/DL Albumin 4.3 3.2-4.5 GM/DL My Orders Orders - TYRA YANEZ APRN BNP (05/06/21 13:36) Ekg Tracing (05/06/21 13:36) O2 (05/06/21 13:36) Ed Iv/Invasive Line Start (05/06/21 13:36) Monitor-Rhythm Ecg Trace Only (05/06/21 13:36) Chest 1 View, Ap/Pa Only (05/06/21 13:36) Cbc With Automated Diff (05/06/21 13:36) Comprehensive Metabolic Panel (05/06/21 13:36) Albuterol/Ipra Inhalation Soln (Duoneb I (05/06/21 13:45) Svn Small Volume Nebulizer (05/06/21 13:36) Troponin I (05/06/21 14:27) Furosemide Injection (Lasix Injection) (05/06/21 15:00) Ldh,Body Fluid (05/06/21 14:58) Echo W Doppler/Color Flow (05/06/21 14:58) Iron Test (Fe) (05/06/21 15:00) Iron Tibc %Sat & Ferritin (05/06/21 15:00) Ketorolac Injection (Toradol Injection) (05/06/21 16:15) Medications Given in ED Current Medications Medications Dose Ordered Sig/Zulma Route Start Time Stop Time Status Last Admin Dose Admin Albuterol/ Ipratropium 3 ml ONCE ONCE INH 05/06/21 13:45 05/06/21 13:46 DC 05/06/21 13:45 3 ML Furosemide 40 mg ONCE ONCE IVP 05/06/21 15:00 05/06/21 15:01 DC 05/06/21 15:36 40 MG Vital Signs/I&O 05/06/21 05/06/21 13:26 13:30 Temp 36.4 Pulse 95 Resp 19 B/P (MAP) 154/80 (104) Pulse Ox 92 94 O2 Delivery Room Air Nasal Cannula O2 Flow Rate 2.00 Capillary Refill : ECG Initial ECG Impression Date: May 06, 2021 Initial ECG Impression Time: 14:06 Initial ECG Rate: 79 Initial ECG Rhythm: Normal Sinus Diagnostic Imaging Diagonstic Imaging: Xray Plain Films/CT/US/NM/MRI: chest Comments NAME: ILIR HOOK [facility] REC#: [id number] PT STATUS: REG ER : 1955 PHYSICIAN: TYRA YANEZ APRN ADMIT DATE: 05/06/21/ER Draft Date of Exam:05/06/21 CHEST 1 VIEW, AP/PA ONLY INDICATION: Shortness of air. TIME OF EXAM: 1:51 PM. COMPARISON: Correlation is made with the prior chest of 05/02/2021. FINDINGS: The heart size is stable. Small to moderate bilateral effusions persist. There are prominent interstitial markings in both bases, suggestive of mild congestive failure. The upper lung merrill are clear. There is no pneumothorax. IMPRESSION: Congestive changes with basilar interstitial changes and bilateral effusions. Dictated on workstation # [id number] Dict: 05/06/21 1412 Trans: 05/06/21 1415 [id number] Interpreted by: TEE BURCIAGA MD Electronically signed by: Departure Communication (Admissions) 1753-symptomatically improved after DuoNeb treatment. However her oxygen saturation dropped to 88% at rest with good waveform. 1505-spoke with Dr. Dave we will admit, iron studies, consult hematology and cardiology. Troponins a little bump to 0.295. Looks like she has a history of anemia and received an upper and lower GI scope in [address] Sanchez for history of peptic ulcer disease but no active bleeding was seen. Lab will run the reticulocyte count off of sample drawn this morning prior to her blood transfusion. I spoke with the cancer control center operator who will notify either Dr. Isidro or Dr. Plummer of the need for inpatient consult. 1611-she reports that it is her understanding that she receives the blood transfusions for anemia secondary to a bleeding stomach ulcer. She states "that is been several years ago though". She does report some intermittent dark stools. For this reason I will withhold Lovenox at this time. I did consult Dr Fabian. Impression Primary Impression: CHF exacerbation Additional Impressions: Anemia TACO (transfusion associated circulatory overload) Disposition: ADMITTED INPATIENT Condition: Stable Admissions Decision to Admit Reason: Admit from ER (General) Decision to Admit/Date: May 06, 2021 Time/Decision to Admit Time: 15:06 Departure-Patient Inst. Referrals: DOMINIC JONES APRN (PCP/Family) Primary Care Physician TYRA YANEZ APRN May 06, 2021 13:41
[2021-05-06] MEDS ORDERED: RT-ALBUTEROL/IPRATROPIUM 3 ML (DUONEB) VIAL INH ONE (13:45)
[2021-05-06 13:52] LABS: BASOPHILS % (AUTO) 0 % (0-10); EOSINOPHILS % (AUTO) 0 % (0-10); HEMATOCRIT 31 % (35-52); LYMPHOCYTES % (AUTO) 11 % (12-44); MEAN CORPUSCULAR HEMOGLOBIN 25 pg (25-34); MEAN CORPUSCULAR HGB CONC 29 g/dL (32-36); MEAN CORPUSCULAR VOLUME 84 fL (80-99); MEAN PLATELET VOLUME 11.9 fL (9.0-12.2); MONOCYTES # (AUTO) 0.5 10^3/uL (0.0-1.0); MONOCYTES % (AUTO) 6 % (0-12); NEUTROPHILS # (AUTO) 7.3 10^3/uL (1.8-7.8); NEUTROPHILS % (AUTO) 82 % (42-75); PLATELET COUNT 239 10^3/uL (130-400)
[2021-05-06 14:14] LABS: ALBUMIN 4.3 GM/DL (3.2-4.5); POTASSIUM 4.1 MMOL/L (3.6-5.0)
[2021-05-06 14:15] LABS: CALCIUM 9.1 MG/DL (8.5-10.1)
--- NOTE | 2021-05-06 14:15 | Diagnostic Imaging Report ---
INDICATION: Shortness of air. TIME OF EXAM: 1:51 PM. COMPARISON: Correlation is made with the prior chest of 05/02/2021. FINDINGS: The heart size is stable. Small to moderate bilateral effusions persist. There are prominent interstitial markings in both bases, suggestive of mild congestive failure. The upper lung merrill are clear. There is no pneumothorax. IMPRESSION: Congestive changes with basilar interstitial changes and bilateral effusions. Dictated by: Dictated on workstation # [id number]
[2021-05-06 14:16] LABS: TOTAL PROTEIN 7.1 GM/DL (6.4-8.2)
[2021-05-06 14:18] LABS: BILIRUBIN,TOTAL 1.2 MG/DL (0.1-1.0)
[2021-05-06 14:20] LABS: CREATININE SERUM 1.05 MG/DL (0.60-1.30)
[2021-05-06] MEDS ORDERED: FUROSEMIDE 40 MG/4 ML INJ (LASIX) IVP ONE (15:00)
[2021-05-06] MEDS ORDERED: KETOROLAC 30 MG/ML VIAL ONE (16:12)
[2021-05-06] MEDS ORDERED: KETOROLAC 30 MG/ML VIAL IVP ONE (16:15)
[2021-05-06 17:30] VITALS: BP 165/71
[2021-05-06] MEDS ORDERED: CATHETER FLUSH 10 ML SYR IV PRN (17:45)
--- NOTE | 2021-05-06 18:14 | Consultation - Surgery ---
History of Present Illness History of Present Illness Patient Consulted On(nancy/time) 05/06/21 17:45 Date Seen by Provider: May 06, 2021 Time Seen by Provider: 17:15 History of Present Illness Counts requested by Dr. Dave for anemia. Patient is a 66-year-old female who presented to emergency department with shortness of breath. Patient states that for last couple months she been having some epigastric abdominal pain. She is has a history of ulcers that she knew of approximately 2 years ago. The last couple of months has been having intermittent black tarry stools. She had received blood transfusion outpatient. Patient epigastric bowel pain is achy in the epigastric region no radiation of pain. Troponin elevated. Hemoglobin 9. Allergies and Home Medications Allergies Coded Allergies: No Known Drug Allergies (Unverified , 05/05/19) Home Medications Ascorbate Calcium 500 Mg Tablet, 500 MG PO DAILY, (Reported) Aspirin 81 Mg Tab.chew, 81 MG PO DAILY, (Reported) Atorvastatin Calcium 80 Mg Tablet, 80 MG PO DAILY, (Reported) Carvedilol 12.5 Mg Tablet, 12.5 MG PO BID, (Reported) Clopidogrel Bisulfate 75 Mg Tablet, 75 MG PO DAILY, (Reported) Isosorbide Mononitrate 30 Mg Tab.er.24h, 30 MG PO DAILY, (Reported) Losartan Potassium 100 Mg Tablet, 100 MG PO DAILY, (Reported) Multivitamin 1 Each Tablet, 1 TAB PO DAILY, (Reported) Nitroglycerin 0.4 Mg Tab.subl, 0.4 MG SL UD PRN for CHEST PAIN Prescribed by: ATTILA CRESPO on 04/19/21 0057 Pantoprazole Sodium 40 Mg Tablet.dr, 40 MG PO DAILY, (Reported) Patient Home Medication List Home Medication List Reviewed: Yes Past Besrmvv-Fabtec-Fkrudv Hx Patient Social History Drug of Choice: HX ETOH ABUSE Smoking Status: Former Smoker Former Smoker, Quit: Nov 22, 2015 Type Used: Cigarettes 2nd Hand Smoke Exposure: No Recent Hopitalizations: No Alcohol Use?: No Have you traveled recently?: No Immunizations Up To Date Tetanus Booster (TDap): Unknown Date of Pneumonia Vaccine: Sep 22, 2018 Date of Influenza Vaccine: Jul 23, 2020 Seasonal Allergies Seasonal Allergies: No Surgeries History of Surgeries: Yes (CARDIAC CATH--STENTS X 2; CERVICAL CONIZATION) Surgeries: Gallbladder Respiratory History of Respiratory Disorde: Yes Respiratory Disorders: COPD Cardiovascular History of Cardiac Disorders: Yes Cardiac Disorders: Coronary Artery Disease, Heart Murmur, High Cholesterol, Hypertension Neurological History of Neurological Disord: No Neurological Disorders: Headaches /Migraines Reproductive System Hx Reproductive Disorders: Yes (CERVICAL DYSPLASIA. 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 Genitourinary History of Genitourinary Disor: Yes Genitourinary Disorders: Kidney Infection Gastrointestinal History of Gastrointestinal Di: Yes Gastrointestinal Disorders: Gastroesophageal Reflux Musculoskeletal History of Musculoskeletal Dis: Yes (ARTHRITIS --KNEES, BACK) Musculoskeletal Disorders: Arthritis, Chronic Back Pain Endocrine History of Endocrine Disorders: No HEENT History of HEENT Disorders: Yes Cancer History of Cancer: No Psychosocial History of Psychiatric Problem: No Integumentary History of Skin or Integumenta: No Blood Transfusions History of Blood Disorders: Yes (ANEMIA --CURRENT PROBLEM STARTING 12/08/18) Reviewed Nursing Assessment Reviewed/Agree w Nursing PMH: Yes Family Medical History Significant Family History: Heart Disease, Diabetes Review of Systems-General Constitutional: No chills, No diaphoresis Respiratory: dyspnea on exertion, short of breath Cardiovascular: No chest pain Gastrointestinal: abdominal pain (Epigastric), melena; No nausea, No vomiting Musculoskeletal: No back pain, No joint pain Skin: change in color (Pale) Psychiatric/Neurological: Denies Anxiety, Denies Depressed, Denies Emotional Problems All Other Systems Reviewed Negative Unless Noted: Yes (Negative excepted noted.) Physical Exam-General Problems Physical Exam Vital Signs Vital Signs - First Documented 05/06/21 05/06/21 13:26 13:30 Temp 36.4 Pulse 95 Resp 19 B/P (MAP) 154/80 (104) Pulse Ox 92 O2 Delivery Room Air O2 Flow Rate 2.00 Capillary Refill : Less Than 3 Seconds General Appearance: no apparent distress, other (Chronically ill) HEENT: PERRL/EOMI, normal ENT inspection Neck: non-tender, supple Respiratory: chest non-tender, no respiratory distress, no accessory muscle use Cardiovascular: regular rate, rhythm, no edema Gastrointestinal: soft, tenderness (Slightly epigastric) Rectal: deferred Back: no CVA tenderness, no vertebral tenderness Extremities: non-tender, normal inspection Neurologic/Psychiatric: alert, normal mood/affect, oriented x 3 Skin: warm/dry, pallor Lymphatic: no adenopathy Data Review Labs Laboratory Tests 05/06/21 13:45: White Blood Count 9.0, Red Blood Count 3.64L, Hemoglobin 9.0L, Hematocrit 31L, Mean Corpuscular Volume 84, Mean Corpuscular Hemoglobin 25, Mean Corpuscular Hemoglobin Concent 29L, Red Cell Distribution Width 15.8H, Platelet Count 239, Mean Platelet Volume 11.9, Immature Granulocyte % (Auto) 1, Neutrophils (%) (Auto) 82H, Lymphocytes (%) (Auto) 11L, Monocytes (%) (Auto) 6, Eosinophils (%) (Auto) 0, Basophils (%) (Auto) 0, Neutrophils # (Auto) 7.3, Lymphocytes # (Auto) 1.0, Monocytes # (Auto) 0.5, Eosinophils # (Auto) 0.0, Basophils # (Auto) 0.0, Immature Granulocyte # (Auto) 0.1, Sodium Level 139, Potassium Level 4.1, Chloride Level 111H, Carbon Dioxide Level 15L, Anion Gap 13, Blood Urea Nitrogen 17, Creatinine 1.05, Estimat Glomerular Filtration Rate 52, BUN/Creatinine Ratio 16, Glucose Level 138H, Calcium Level 9.1, Corrected Calcium 8.9, Iron Level , Total Bilirubin 1.2H, Aspartate Amino Transf (AST/SGOT) 26, Alanine Aminotransferase (ALT/SGPT) 12, Alkaline Phosphatase 68, Troponin I 0.295*H, B- Type Natriuretic Peptide 2863.8H, Total Protein 7.1, Albumin 4.3 Assessment/Plan Assessment/Plan Assessment/Plan Epigastric abdominal pain Melena Anemia unlikely to possible upper GI ulcer Congestive heart failure Coronary artery disease on antiplatelet therapy Elevated troponin Patient 66-year-old female with anemia transfuse PRBC as needed continue to monitor hemoglobin. Patient placed on Protonix 40 mg twice daily. Elevated troponin cardiology consulted. Keep n.p.o. Would hold off on any antiplatelet anticoagulation if possible. May need EGD inpatient vs outpatient, would like antiplatelet off 5 days unless emergent YEISON SOLANO DO May 06, 2021 18:14
--- NOTE | 2021-05-06 18:30 | History & Physical-Hospitalist ---
History of Present Illness HPI/Chief Complaint Chief complaint: Shortness of breath History of present illness: This is a 66-year-old white female who has a past medical history of congestive heart failure and COPD who presented to the ER with shortness of breath after receiving 1 unit of blood for severe anemia ordered by primary care provider. She had previously had home oxygen 2 years ago but stopped using it since she did not need it. She stopped smoking in 2016. Cardiology has been consulted and patient will be monitor closely. She does have mild tachypnea but in no distress. Source: patient, RN/MD, old records Exam Limitations: no limitations Date Seen 05/06/21 Time Seen by a Provider: 18:00 Attending Physician Stephanei Dave Amanda S Aprn Referring Physician Date of Admission May 06, 2021 at 15:01 Home Medications & Allergies Home Medications Reviewed patient Home Medication Reconciliation performed by pharmacy medication reconciliations electrophysiology technician and/or nursing. Patients Allergies have been reviewed. Allergies Allergies Coded Allergies No Known Drug Allergies (Unverified05/05/19) Past Bfnpjpf-Xadylp-Vkxiql Hx Patient Social History Marrital Status: single Employed/Student: retired Tobacco Use?: No Tobacco type used: Cigarettes Smoking Status: Former Smoker Substance use?: No Alcohol Use?: No Pt feels they are or have been: No Immunizations Up To Date Date of Influenza Vaccine: Jul 23, 2020 First/Initial COVID19 Vaccinat: december Second COVID19 Vaccination Rom: january Tetanus Booster (TDap): Unknown Date of Pneumonia Vaccine: Sep 22, 2018 Seasonal Allergies Seasonal Allergies: No Current Status status: No status: No Advance Directives: No Communicates: Verbally Primary Language: Haitian Preferred Spoken Language: Haitian Is interpretation needed?: No Implanted or Applied Medical D: Stents Past Medical History Surgeries: Gallbladder COPD Currently Using CPAP: No Coronary Artery Disease, Heart Murmur, High Cholesterol, Hypertension 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 4.8oz. 68.682332fk; 25.99 BMI Method:Stated General Appearance: No Apparent Distress, Chronically ill Eyes: Right Eye Normal Inspection, Right Eye PERRL HEENT: PERRL/EOMI, Normal ENT Inspection, Pharynx Normal, Moist Mucous Membranes Neck: Full Range of Motion, Normal Inspection, Non Tender Respiratory: Chest Non Tender, Lungs Clear, No Respiratory Distress, Accessory Muscle Use, Decreased Breath Sounds Cardiovascular: Regular Rate, Rhythm, No Edema, No Gallop, No JVD, No Murmur, Normal Peripheral Pulses Gastrointestinal: Normal Bowel Sounds, No Organomegaly, No Pulsatile Mass, Non Tender, Soft Back: Normal Inspection, No CVA Tenderness, No Vertebral Tenderness Extremity: Normal Capillary Refill, Normal Inspection, Normal Range of Motion, Non Tender, No Calf Tenderness, No Pedal Edema Neurologic/Psychiatric: Alert, Oriented x3, No Motor/Sensory Deficits, Normal Mood/Affect Skin: Normal Color, Warm/Dry Lymphatic: No Adenopathy Results Results/Procedures Labs Laboratory Tests 05/06/21 13:45 05/07/21 00:45 Patient resulted labs reviewed. Assessment/Plan Admission Diagnosis Assessment: Dyspnea Severe anemia requiring transfusion Congestive heart failure exacerbation COPD former smoker Elevated troponin Plan: Oxygen Diuresis Echo Cardiology consult Anemia work-up Hematology consult Admission Status: Inpatient Order (span 2 midnights) Reason for Inpatient Admission: Shortness of breath with elevated troponin and heart failure Diagnosis/Problems Diagnosis/Problems (1) TACO (transfusion associated circulatory overload) Status: Acute (2) CHF exacerbation Status: Acute (3) Blood loss anemia Status: Acute (4) COPD STEPHANIE DAVE DO May 06, 2021 18:30
[2021-05-06 18:45] VITALS: BP 165/71
[2021-05-06 19:00] VITALS: BP 169/83
[2021-05-06] MEDS ORDERED: RT-ALBUTEROL/IPRATROPIUM 3 ML (DUONEB) VIAL INH PRN (19:00)
[2021-05-06 20:16] VITALS: BP 153/71
[2021-05-06 21:00] VITALS: BP 158/81
[2021-05-06] MEDS ORDERED: ACETAMINOPHEN 500 MG TAB (TYLENOL) PO PRN (21:30)
[2021-05-06] MEDS ORDERED: MELATONIN 3 MG TABLET PO PRN (21:30)
[2021-05-06] MEDS ORDERED: HYDROcodone/APAP 5 MG/325 MG (LORTAB) TAB PO PRN (21:30)
[2021-05-06] MEDS ORDERED: DOCUSATE SODIUM 100 MG (COLACE) CAP PO PRN (21:30)
[2021-05-06] MEDS ORDERED: diphenhydrAMINE 25 MG TAB (BENADRYL) PO PRN (21:30)
[2021-05-06] MEDS ORDERED: CALCIUM CARBONATE 500 MG (TUMS) TAB.CHEW PO PRN (21:30)
[2021-05-06] MEDS ORDERED: ALPRAZolam 0.25 MG (XANAX) TAB PO PRN (21:30)
[2021-05-06] MEDS ORDERED: ONDANSETRON 4 MG/2 ML (SDV) Z0FRAN IVP PRN (21:30)
[2021-05-06] MEDS ORDERED: amLODIPine 5 MG (NORVASC) TAB PO ONE (21:41)
[2021-05-06] MEDS: CATHETER FLUSH 10 ML SYR IV SCH (22:08)
[2021-05-06] MEDS: PANTOPRAZOLE 40 MG (PROTONIX) VIAL IV SCH (22:08)
[2021-05-06] MEDS: ENOXAPARIN 40 MG/0.4 ML (LOVENOX) SYR SC SCH (22:08)
[2021-05-07] VITALS (15 sets, daily range): BP systolic 124–154; BP diastolic 63–84
[2021-05-07 00:51] LABS: BASOPHILS % (AUTO) 0 % (0-10); EOSINOPHILS # (AUTO) 0.1 10^3/uL (0.0-0.3); EOSINOPHILS % (AUTO) 1 % (0-10); HEMATOCRIT 30 % (35-52); HEMOGLOBIN 8.8 g/dL (11.5-16.0); LYMPHOCYTES # (AUTO) 2.4 10^3/uL (1.0-4.0); LYMPHOCYTES % (AUTO) 24 % (12-44); MEAN CORPUSCULAR HEMOGLOBIN 25 pg (25-34); MEAN CORPUSCULAR HGB CONC 30 g/dL (32-36); MEAN CORPUSCULAR VOLUME 84 fL (80-99); MONOCYTES % (AUTO) 10 % (0-12); NEUTROPHILS # (AUTO) 6.4 10^3/uL (1.8-7.8); NEUTROPHILS % (AUTO) 65 % (42-75); PLATELET COUNT 201 10^3/uL (130-400)
[2021-05-07 01:03] LABS: CALCIUM 9.1 MG/DL (8.5-10.1)
[2021-05-07 01:08] LABS: CREATININE SERUM 1.24 MG/DL (0.60-1.30)
[2021-05-07 01:57] LABS: PHOSPHORUS 4.8 MG/DL (2.3-4.7)
[2021-05-07 01:59] LABS: MAGNESIUM 2.2 MG/DL (1.6-2.4)
[2021-05-07] MEDS ORDERED: HEParin DRIP 25000 UNIT/500ML 500 ML IV SCH (02:30)
[2021-05-07] MEDS ORDERED: HEParin 1000 UNIT/ML (10ML VIAL) FOR BOLUS IV ONE (02:30)
[2021-05-07] MEDS ORDERED: HEParin 1000 UNIT/ML (10ML VIAL) FOR BOLUS IV PRN (02:30)
[2021-05-07 03:10] LABS: INR 1.1 (0.8-1.4)
[2021-05-07] MEDS: CATHETER FLUSH 10 ML SYR IV SCH ×3 (06:04→22:00)
--- NOTE | 2021-05-07 06:09 | Progress Note - Hospitalist ---
Subjective HPI/CC On Admission Date Seen by Provider: May 07, 2021 Time Seen by Provider: 09:00 Chief complaint: Shortness of breath History of present illness: This is a 66-year-old white female who has a past medical history of congestive heart failure and COPD who presented to the ER with shortness of breath after receiving 1 unit of blood for severe anemia ordered by primary care provider. She had previously had home oxygen 2 years ago but stopped using it since she did not need it. She stopped smoking in 2016. Cardiology has been consulted and patient will be monitor closely. She does have mild tachypnea but in no distress. Subjective/Events-last exam Pt doing pretty well Getting ready for cardiac catheterization due to elevated Troponin Volume overload seems to be doing well Rojo catheter maintained Will have a scope also today Iron studies reviewed Appreciate all consultants Review of Systems General: Fatigue, Malaise Pulmonary: Dyspnea Objective Exam Vital Signs Vital Signs Date Time Temp Pulse Resp B/P (MAP) Pulse Ox O2 Delivery O2 Flow Rate FiO2 05/08/21 03:58 36.7 72 16 128/74 (92) 96 Nasal Cannula 3.00 Capillary Refill : Less Than 3 Seconds General Appearance: No Apparent Distress, WD/WN, Chronically ill Respiratory: Lungs Clear Cardiovascular: Regular Rate, Rhythm Neurologic/Psychiatric: Alert, Oriented x3, No Motor/Sensory Deficits, Normal Mood/Affect Results/Procedures Lab Patient resulted labs reviewed. Assessment/Plan Assessment and Plan Assess & Plan/Chief Complaint Assessment: Dyspnea Severe anemia requiring transfusion Congestive heart failure exacerbation COPD former smoker Elevated troponin Likely UGI ulcer Plan: Oxygen Diuresis Echo Cardiology consult Anemia work-up Hematology consult 05/07/21: Cath today EGD? Monitor hgb Diagnosis/Problems Diagnosis/Problems (1) TACO (transfusion associated circulatory overload) Status: Acute (2) CHF exacerbation Status: Acute (3) Blood loss anemia Status: Acute (4) COPD GLENROY MAXWELL DO May 07, 2021 06:09
[2021-05-07] MEDS: SENNA W/DOCUSATE (SENOKOT S) TABLET PO SCH ×2 (08:03→20:38)
[2021-05-07] MEDS: KCL 20 MEQ TAB (K-DUR) PO SCH (08:03)
[2021-05-07] MEDS: PANTOPRAZOLE 40 MG (PROTONIX) VIAL IV SCH ×2 (08:03→20:37)
[2021-05-07] MEDS: FUROSEMIDE 40 MG/4 ML INJ (LASIX) IVP SCH ×2 (08:03→16:31)
--- NOTE | 2021-05-07 08:19 | Consultation-Cardiology ---
HPI-Cardiology Cardiology Consultation: Date of Consultation 05/07/21 Date of Admission Attending Physician Stephanie Dave DO Admitting Physician Nereida Campbell Aprn Consulting Physician ELVIA OWENS JR, MD HPI: Time Seen by a Provider: 08:14 Chief Complaint: Reason for consultation: Heart failure and elevated troponin. I had the pleasure of seeing Mikki in the cardiac stepdown unit at [facility] in [place], [place] today.She has an extensive past cardiac history. She previously saw one of my partners, Dr. Umana but then was lost to follow-up. She has an appointment to see Dr. Antony in June. She tells me she has 2 previous coronary stents that were performed at [facility] years ago. She also follows with Dr. Lei in the same facility for her peripheral vascular disease. She has not had any peripheral vascular revascularization. She also has severe chronic obstructive pulmonary disease, hypertension and hyperlipidemia. She was in her usual state of poor health until last week when she started having intermittent abdominal discomfort. She is her primary care provider in [place] who ordered some blood test and she was found to have anemia.She was sent down here to our hospital for a blood transfusion on Wednesday and during the blood transfusion, she developed severe shortness of breath associated with chest tightness. She was admitted to the hospital for further evaluation. She was felt to be in heart failure and also had some troponin levels drawn which have gradually become more elevated. As such, a cardiology consultation was requested. She has also been seen by gastroenterology who was planning on doing endoscopy at some point in time. When I was first notified about her yesterday, her troponin was marginally elevated but overnight became much more elevated. At that time, I placed her on intravenous heparin. When I saw her this morning, she is tells me her breathing has improved. She did have more severe chest tightness while she was getting the blood transfusion but this is improved although not completely resolved. She does get some intermittent dark stools but the last one she recalls is from last week. She does not recall having chest discomfort at home. She has 2 pillow orthopnea. She has occasional palpitations with a sensation of skipped heartbeats without other associated complaints. She denies paroxysmal nocturnal dyspnea. She has occasional dizzy spells if she stands up too fast but denies syncope. She denies any lower extremity edema. She lives with her who has Alzheimer's disease. She quit smoking in 2016. Review of Systems-Cardiology Review of Systems Other comments Review of 10 organ systems is as per the history of present illness, otherwise negative. All Other Systems Reviewed Negative Unless Noted: Yes (Negative excepted noted.) ICE-Mbtonx-Pvikka Hx Patient Social History Marrital Status: single Employed/Student: retired Smoking Status: Former Smoker 2nd Hand Smoke Exposure: No Have you traveled recently?: No Alcohol Use?: No Pt feels they are or have been: No Tobacco type used: Cigarettes Immunizations Up To Date Tetanus Booster (TDap): Unknown Date of Pneumonia Vaccine: Sep 22, 2018 Date of Influenza Vaccine: Jul 23, 2020 Past Medical History PMH As described under Assessment. Family Medical History Family Medical History: She does not know of any family history of premature coronary artery disease Allergies and Home Medications Allergies Coded Allergies: No Known Drug Allergies (Unverified , 05/05/19) Home Medications Ascorbate Calcium 500 Mg Tablet, 500 MG PO DAILY, (Reported) Aspirin 81 Mg Tab.chew, 81 MG PO DAILY, (Reported) Last Action: Continued Atorvastatin Calcium 80 Mg Tablet, 80 MG PO DAILY, (Reported) Last Action: Continued Carvedilol 12.5 Mg Tablet, 12.5 MG PO BID, (Reported) Clopidogrel Bisulfate 75 Mg Tablet, 75 MG PO DAILY, (Reported) Last Action: Continued Isosorbide Mononitrate 30 Mg Tab.er.24h, 30 MG PO DAILY, (Reported) Losartan Potassium 100 Mg Tablet, 100 MG PO DAILY, (Reported) Multivitamin 1 Each Tablet, 1 TAB PO DAILY, (Reported) Nitroglycerin 0.4 Mg Tab.subl, 0.4 MG SL UD PRN for CHEST PAIN Prescribed by: ATTILA CRESPO on 04/19/21 0057 Pantoprazole Sodium 40 Mg Tablet.dr, 40 MG PO DAILY, (Reported) Patient Home Medication List Home Medication List Reviewed: Yes Physical Exam-Cardiology Physical Exam Vital Signs/I&O 05/06/21 05/06/21 05/07/21 05/07/21 21:00 21:00 00:00 00:40 Pulse 84 75 80 Resp 19 B/P (MAP) 158/81 (106) 151/68 (95) Pulse Ox 94 94 89 O2 Delivery Nasal Cannula Nasal Cannula Nasal Cannula Nasal Cannula O2 Flow Rate 3.00 4.00 3.00 5.00 05/07/21 05/07/21 05/07/21 05/07/21 01:00 04:00 06:04 07:00 Pulse 72 82 80 Resp 38 B/P (MAP) 133/74 (93) Pulse Ox 93 O2 Delivery Nasal Cannula Nasal Cannula O2 Flow Rate 5.00 4.50 05/07/21 07:17 Temp 36.5 Pulse 81 Resp 29 B/P (MAP) 128/81 (97) Pulse Ox 93 O2 Delivery Nasal Cannula O2 Flow Rate 4.00 05/07/21 00:00 Intake Total 0 ml Output Total 1100 ml Balance -1100 ml Capillary Refill : Less Than 3 Seconds Constitutional: other (She is alert and oriented x3. She appears chronically ill. She is in no acute distress.) HEENT: other (She is normocephalic and atraumatic. Extraocular movements are intact. There are no xanthelasma. Sclerae are clear.) Neck: non-tender, full range of motion, supple, carotid pulses are 2 + bilaterally, with good upstrokes Respiratory: other (There is good respiratory effort with symmetrical expansion bilaterally. The lungs are clear to auscultation bilaterally.) Cardiovascular: other (Regular rate and rhythm with a normal S1 and S2. No murmurs, rubs or gallops appreciated.) Gastrointestinal: other (The abdomen has normal bowel sounds. The abdomen is soft with some mild upper quadrant tenderness.) Rectal: deferred Extremities: normal range of motion, non-tender, normal inspection, other (Bilateral femoral pulses are palpable but diminished. Radial pulses are nonpalpable.), no lower extremity edema bilateral Neurologic/Psychiatric: other (She is alert and oriented x3. Cranial nerves III through XII appear grossly intact. She has good motor tone and strength in the upper and lower extremities bilaterally. She is pleasant and has normal affect.) Skin: normal color, warm/dry Lymphatic: no adenopathy Data Review Labs Laboratory Tests 05/06/21 13:45: White Blood Count 9.0, Red Blood Count 3.64L, Hemoglobin 9.0L, Hematocrit 31L, Mean Corpuscular Volume 84, Mean Corpuscular Hemoglobin 25, Mean Corpuscular Hem oglobin Concent 29L, Red Cell Distribution Width 15.8H, Platelet Count 239, Mean Platelet Volume 11.9, Immature Granulocyte % (Auto) 1, Neutrophils (%) (Auto) 82H, Lymphocytes (%) (Auto) 11L, Monocytes (%) (Auto) 6, Eosinophils (%) (Auto) 0, Basophils (%) (Auto) 0, Neutrophils # (Auto) 7.3, Lymphocytes # (Auto) 1.0, Monocytes # (Auto) 0.5, Eosinophils # (Auto) 0.0, Basophils # (Auto) 0.0, Immature Granulocyte # (Auto) 0.1, Sodium Level 139, Potassium Level 4.1, Chloride Level 111H, Carbon Dioxide Level 15L, Anion Gap 13, Blood Urea Nitrogen 17, Creatinine 1.05, Estimat Glomerular Filtration Rate 52, BUN/Creatinine Ratio 16, Glucose Level 138H, Calcium Level 9.1, Corrected Calcium 8.9, Iron Level 32L , Total Iron Binding Capacity 402H, Unsaturated Iron Binding Capacity 370, Transferrin % Saturation 8L, Ferritin 19.6L, Total Bilirubin 1.2H, Aspartate Amino Transf (AST/SGOT) 26, Alanine Aminotransferase (ALT/SGPT) 12, Alkaline Phosphatase 68, Lactate Dehydrogenase 476H, Troponin I 0.295*H, B-Type Natriuretic Peptide 2863.8H, Total Protein 7.1, Albumin 4.3 05/06/21 17:58: Troponin I 0.686*H 05/07/21 00:45: White Blood Count 10.0, Red Blood Count 3.54L, Hemoglobin 8.8L, Hematocrit 30L, Mean Corpuscular Volume 84, Mean Corpuscular Hemoglobin 25, Mean Corpuscular Hemoglobin Concent 30L, Red Cell Distribution Width 16.0H, Platelet Count 201, Mean Platelet Volume 12.0, Immature Granulocyte % (Auto) 1, Neutrophils (%) (Auto) 65, Lymphocytes (%) (Auto) 24, Monocytes (%) (Auto) 10, Eosinophils (%) (Auto) 1, Basophils (%) (Auto) 0, Neutrophils # (Auto) 6.4, Lymphocytes # (Auto) 2.4, Monocytes # (Auto) 1.0, Eosinophils # (Auto) 0.1, Basophils # (Auto) 0.0, Immature Granulocyte # (Auto) 0.1, Sodium Level 142, Potassium Level 4.0, Chloride Level 110H, Carbon Dioxide Level 15L, Anion Gap 17H, Blood Urea Nitrogen 19H, Creatinine 1.24, Estimat Glomerular Filtration Rate 43, BUN/Creatinine Ratio 15, Glucose Level 102, Calcium Level 9.1, Troponin I 1.859*H, Prothrombin Time 15.0H, INR Comment 1.1, Activated Partial Thromboplast Time 39H, Phosphorus Level 4.8H, Magnesium Level 2.2 05/07/21 08:22: Radiology ECHOCARDIOGRAM (05/06/2021): Moderate left ventricular dilatation with mild concentric left ventricular hypertrophy. There is moderate left ventricular systolic dysfunction with an estimated ejection fraction of 35-40% with global hypokinesis. There is grade 2 diastolic dysfunction. There is severe mitral and tricuspid regurgitation. The estimated pulmonary artery pressure is 61 mmHg. ECG Impression ECG Initial ECG Impression Date: May 07, 2021 Comment Sinus rhythm with left ventricular hypertrophy with strain pattern. A/P-Cardiology Assessment/Admission Diagnosis CHF, acute on chronic, combined type. She has had a gradually decreasing ejection fraction over the past 1-2 years. She now has moderate left vent ricular systolic dysfunction. This could be ischemic. She was on carvedilol and losartan at home. These will need to be resumed when her blood pressure will tolerate. Non-ST elevation myocardial infarction. She has had gradually increasing troponins accompanied by some chest discomfort. Unclear whether or not the ST depression on her electrocardiogram is due to ischemia versus left ventricular hypertrophy with strain pattern. Nonetheless, she will need further evaluation with a cardiac catheterization. In light of her anemia, we will have to proceed cautiously. We will continue aspirin, clopidogrel, and statin medication. Cardiomyopathy. Etiology unclear. However, given her history of coronary artery disease, coronary ischemia is certainly in the differential diagnosis. We will proceed as above. Mitral regurgitation. She had severe mitral and tricuspid regurgitation on her echocardiogram obtained on 05/06. Hopefully, with treatment of her heart failure and cardiomyopathy, at least the mitral regurgitation may improve.Graft pulmonary hypertension. Most likely multifactorial due to heart failure and her severe chronic obstructive pulmonary disease. We may want to consider a follow- up echocardiogram after she is euvolemic. Anemia. Etiology unclear. General surgery plans endoscopy at some point in time. Her hemoglobin appears to be stable after the blood transfusion. Mixed hyperlipidemia. Continue statin medication. Essential hypertension. Resume antihypertensive/heart failure medication when able. ELVIA OWENS JR, MD May 07, 2021 08:19
[2021-05-07] MEDS ORDERED: CLOPIDOGREL 75 MG (PLAVIX) TABLET PO SCH (09:00)
[2021-05-07] MEDS ORDERED: ASPIRIN 81 MG CHEW (CHILDREN'S ASA) PO SCH (09:00)
[2021-05-07] MEDS ORDERED: NITR0.4T42 SL ×2 (10:53)
[2021-05-07] MEDS ORDERED: MULT-1067 PO ×2 (10:53)
[2021-05-07] MEDS ORDERED: CARV6.252 PO ×2 (10:53)
[2021-05-07] MEDS ORDERED: SENN-234 PO ×2 (10:53)
[2021-05-07] MEDS ORDERED: CHOL10007 PO ×2 (10:53)
[2021-05-07] MEDS ORDERED: GUAI120013 PO ×2 (10:53)
--- NOTE | 2021-05-07 13:21 | Oncology Consultation ---
Visit Information Visit Information Date of Admission May 06, 2021 at 15:01 Attending Physician Stephanie Maxwell DO Admitting Physician Nereida Campbell Aprn Chief Complaint SOB after receiving one unit of the blood. h/o CHF, anemia and peptic ulcer Interval History Ms. Mcwilliams is a 66 year old female with h/o gastric ulcer, COPD and heavy smoker, who presented to her PCP with about 2-3 months of gastric pain and SOB and fatigue. She was found to have Hb 8, normal WBC and Plt on 04/19/2021. She had normal CBC 09/24/2021. Her Hb was dropped even further to 7.6 on 05-02-2021. So her PCP ordered one unit of RBC transfusion on 05/06/2021 and she got more SOB and sent to ER. She was found to have pulmonary edema/CHF as well as the elevated troponin level. Cardiology consultation was obtained. Also GI scope was arranged. We are called to manage the anemia, possible GI bleeding in the setting of anti-coagulation for the cardiac issue. Pt had cardiac cath today and just got back from the procedure. Iron study drawn on 05/02/2021 showed iron deficiency. I consulted the patient on: 05/07/21 13:20 Time Seen by Provider: 13:20 Review of Systems Constitutional: see HPI Respiratory: see HPI Cardiovascular: see HPI Health Status Allergies Coded Allergies: No Known Drug Allergies (Unverified , 05/05/19) Home Medications Ascorbate Calcium (Vitamin C) 500 Mg Tablet, 500 MG PO DAILY, (Reported) Aspirin (Aspirin) 81 Mg Tab.chew, 81 MG PO DAILY, (Reported) Atorvastatin Calcium (Atorvastatin Calcium) 80 Mg Tablet, 80 MG PO DAILY, (Reported) Carvedilol (Carvedilol) 6.25 Mg Tablet, 6.25 MG PO BID, (Reported) Cholecalciferol (Vitamin D3) (Vitamin D3) 25 Mcg Capsule, 25 MCG PO DAILY, (Reported) Clopidogrel Bisulfate (Plavix) 75 Mg Tablet, 75 MG PO DAILY for 7 Days Hold until scopes done on 05/13/21 Prescribed by: STEPHANIE MAXWELL on 05/08/21 1104 Furosemide (Lasix) 20 Mg Tablet, 20 MG PO DAILY, #30 Ref 4 Prescribed by: SUSAN LIM on 05/08/21 1259 Guaifenesin (Mucinex) 1,200 Mg Tab.er.12h, 1,200 MG PO Q12H PRN for CONGESTION, (Reported) Isosorbide Mononitrate (Isosorbide Mononitrate ER) 30 Mg Tab.er.24h, 30 MG PO DAILY, (Reported) Losartan Potassium (Losartan Potassium) 100 Mg Tablet, 100 MG PO DAILY, (Reported) Multivitamin/Iron/Folic Acid (Centrum Adults Tablet) 1 Each Tablet, 1 EACH PO DAILY, (Reported) Nitroglycerin (Nitroglycerin) 0.4 Mg Tab.subl, 0.4 MG SL UD PRN for CHEST PAIN (ANGINA), (Reported) Pantoprazole Sodium (Pantoprazole Sodium) 40 Mg Tablet.dr, 40 MG PO DAILY, #30 Prescribed by: STEPHANIE MAXWELL on 05/08/21 1104 Potassium Chloride (Klor-Con M20) 20 Meq Tab.er.prt, 10 MEQ PO DAILY@0700, #30 Ref 2 Prescribed by: SUSAN LIM on 05/08/21 1259 Potassium Chloride (K-Tab ER) 10 Meq Tablet.er, 10 MEQ PO DAILY, #30 Ref 4 Prescribed by: SUSAN LIM on 05/08/21 1259 Sennosides (Senna) 8.6 Mg Tablet, 8.6 MG PO QID PRN for CONSTIPATION-5TH LINE, (Reported) Sucralfate (Sucralfate) 1 Gm Tablet, 1 GM PO ACHS, #120 Prescribed by: STEPHANIE MAXWELL on 05/08/21 1104 FHM-Adynpn-Rlfukt Hx Patient Social History Marrital Status: single Employed/Student: retired Drug of Choice: HX ETOH ABUSE Smoking Status: Former Smoker Type Used: Cigarettes 2nd Hand Smoke Exposure: No Recent Hopitalizations: No Alcohol Use?: No Have you traveled recently?: No Immunizations Up To Date Tetanus Booster (TDap): Unknown Date of Pneumonia Vaccine: Sep 22, 2018 Date of Influenza Vaccine: Jul 23, 2020 Family Medical History Significant Family History: Heart Disease, Diabetes Physical Exam Vital Signs Vital Signs - First Documented 05/06/21 05/06/21 13:26 13:30 Temp 36.4 Pulse 95 Resp 19 B/P (MAP) 154/80 (104) Pulse Ox 92 O2 Delivery Room Air O2 Flow Rate 2.00 Capillary Refill : Less Than 3 Seconds Height, Weight, BMI Height: 5'6.00" Weight: 150lbs. 4.8oz. 68.212150fs; 25.99 BMI Method:Stated General Appearance: No Apparent Distress HEENT: PERRL/EOMI Respiratory: No Accessory Muscle Use, No Respiratory Distress Cardiovascular: Regular Rate, Rhythm Gastrointestinal: Soft Neurologic/Psychiatric: Alert, Oriented x3 Data Review Labs Laboratory Tests 05/06/21 17:58: Troponin I 0.686*H 05/07/21 00:45: Troponin I 1.859*H, Red Blood Count 3.54L, Hemoglobin 8.8L, Hematocrit 30L, Mean Corpuscular Hemoglobin Concent 30L, Red Cell Distribution Width 16.0H, Prothrombin Time 15.0H, Activated Partial Thromboplast Time 39H, Chloride Level 110H, Carbon Dioxide Level 15L, Anion Gap 17H, Blood Urea Nitrogen 19H, Phosphorus Level 4.8H 05/07/21 08:22: Activated Partial Thromboplast Time 128*H 05/07/21 12:00: Activated Partial Thromboplast Time 90H 05/08/21 05:22: Red Blood Count 3.52L, Hemoglobin 8.6L, Hematocrit 29L, Mean Corpuscular Hemoglobin 24L, Mean Corpuscular Hemoglobin Concent 30L, Red Cell Distribution Width 16.2H, Potassium Level 3.4L, Blood Urea Nitrogen 19H, Total Bilirubin 1.2H Impression & Plan Impression & Plan IMP: 1. GI bleeding, most likely upper GI on Protonix 40mg bid IV. 2. Iron deficiency anemia, s/p one unit RBC on 05/06/2021 complicated by pulmonary edema. Hb responded properly from 7.6 to 9 after one unit RBC. 3. COPD 4. Tobaccoism 5. CHF and mild cardiomegaly on CXR. Pt had cardiac cath this afternoon. Rec: 1. Stay on Protonix 40m bid. Add carafate 1g qid. She needs to be on carafate for 2-4 weeks and protonix for at least 3 months. 2. GI scope. 3. Wait for cardiology to clear her cardiac issue then decide the anticoagulation. 4. IV iron either Venofer or Injector pending pharmacy availability. The reason to use IV iron rather than oral iron is to replace iron without GI irritation from the oral iron. I anticipate that she will need to be on some kind of anticoagulation because of her cardiac stents. She will be high risk of GI bleeding and iron deficiency. ERIC CHOW MD May 07, 2021 13:21
[2021-05-07] MEDS ORDERED: LIDOCAINE 1% INJ 20 ML 20 ML VIAL ONE (14:14)
[2021-05-07] MEDS ORDERED: NS IV 1000 ML 1,000 ML ONE (14:15)
[2021-05-07] MEDS ORDERED: HEParin (CATH LAB) 2,000 ML IV ONE (14:15)
[2021-05-07] MEDS ORDERED: fentaNYL INJ 100 MCG/2 ML AMP ONE (14:16)
[2021-05-07] MEDS ORDERED: MIDAZOLAM 5 MG/5 ML (VERSED) VIAL ONE (14:16)
[2021-05-07] MEDS ORDERED: HEParin 1000 UNIT/ML (10ML VIAL) FOR BOLUS ONE (14:39)
[2021-05-07] MEDS ORDERED: VERAPAMIL 5 MG/2 ML (CALAN) VIAL IV ONE (14:39)
[2021-05-07] MEDS ORDERED: NITRO DRIP 25000 MCG/D5W 250 ML IV ONE (14:41)
--- NOTE | 2021-05-07 14:48 | Conscious Sedation/ASA ---
Conscious Sedation Pre-Proced Time 14:48 ASA Score 3 For ASA 3 and 4: Consider anesthesia and medical clearance. Also, for patients with a history of failed moderate sedation consider anesthesia. Airway Lungs Heart ASA score ASA 1: a normal healthy patient ASA 2: a patient with a mild systemic disease (mid diabetes, controlled hypertension, obesity x ASA 3: a patient with a severe systemic disease that limits activity (angina, COPD, prior Myocardial infarction) ASA 4: a patient with an incapacitating disease that is a constant threat to life (CHF, renal failure) ASA 5: a moribund patient not expected to survive 24 hrs. (ruptured aneurysm) ASA 6: a declared brain- patient whose organs are being harvested. For emergent operations, add the letter E after the classification Mallampati Classification Grade 3 Sedation Plan Analgesia, Amnesia, Plan communicated to team members, Discussed options with patient/fam, Discussed risks with patient/fam The patient is an appropriate candidate to undergo the planned procedure, sedation, and anesthesia. The patient immediately re-assessed prior to indication. SUSAN LIM MD May 07, 2021 14:48
--- NOTE | 2021-05-07 15:17 | Cardiac Cath Report ---
Cardiac Cath Report Physician (s)/[employer] Operator (s) Physician SUSAN LIM MD Pre-Procedure Diagnosis Pre-Procedure Diagnosis: Coronary artery disease, non-ST elevation myocardial infarction Post-Procedure Note Procedure Start Date: May 07, 2021 Name of Procedure: Left heart catheterization Left ventriculogram Aortic arch angiogram Findings/Procedure Note PROCEDURE NOTE: 66-year-old lady with coronary artery disease, admitted with severe anemia, noted to have elevation in troponin, did not have active chest pain, no acute EKG changes, scheduled for cardiac catheterization. After explaining the procedure to the patient, all pros and cons were explained, all questions were answered. The patient signed the consent and then she was placed on the cardiac catheterization laboratory. Groin was prepped SL fashion local anesthesia was used. Sheath placed in the right radial artery, Jasper catheter was advanced through the right radial artery to the left ventricular cavity, left ventriculogram was done, pullback LV to aorta was done, intubated the right and left coronary system and angiogram was done. Patient has heavy calcification in the aortic arch and the brachiocephalic artery I proceeded with aortic arch angiogram. At the end of the procedure the sheath was removed. Vascular band deployed FINDINGS: Hemodynamics LV 192/13, end-diastolic pressure of 13 Aorta 185/57 mean of 98 ANATOMY: Left Main is calcified with mild disease Left Anterior Descending calcified artery, tortuous artery with mild to moderate disease nonobstructive disease Left Circumflex is mildly calcified, the first obtuse marginal branch has 70 to 80% stenosis Right Coronary Artery is calcified artery with mild disease nonobstructive disease LV Gram was done showing diffuse left ventricular hypokinesia, ejection fraction estimated to be 40% Aorta evaluation done with aortic arch angiogram heavy calcification in the aortic arch and the brachiocephalic artery with mild to moderate stenosis, heavy calcification in the left carotid and left subclavian artery with moderate disease at the proximal left carotid artery CONCLUSION: 1. Severe stenosis in the first obtuse marginal branch, moderate size artery 2. Heavily calcified proximal LAD and tortuous LAD mild to moderate disease nonobstructive disease, calcified right coronary artery with mild to moderate disease 3. Prominent left ventricle with diffuse hypokinesia, estimated ejection fraction 40% 4. Heavily calcified aortic arch and brachiocephalic artery with moderate stenosis DISCUSSION AND RECOMMENDATION: Patient will need to have angioplasty and stenting of the first obtuse marginal branch, the lesion is significant but not unstable at this point. Due to her GI bleed and severe anemia I am hesitant to proceed with stenting that will require a minimum of 6 weeks uninterrupted dual antiplatelet treatment. Continue with conservative management for now once the work-up for her underlying bleed has resolved then we will consider proceeding with intervention on the circumflex artery, her elevated troponin is probably due to small vessel disease and severe anemia Anesthesia Type: Conscious Sedation Estimated blood loss (mL): 20 ml Contrast Amount: 50 ml Total Radiation Dose: 399 mGy Post-Procedure Diagnosis Post-operative diagnosis: Non-ST elevation myocardial infarction Coronary artery disease GI bleed Hypertension (1) TACO (transfusion associated circulatory overload) (2) CHF exacerbation (3) Blood loss anemia (4) COPD SUSAN LIM MD May 07, 2021 3:17 pm
[2021-05-07] MEDS: NS IV 1000 ML 1,000 ML IV SCH (15:37)
[2021-05-07] MEDS: SUCRALFATE 1 GM (CARAFATE) TAB PO SCH ×2 (16:31→20:37)
[2021-05-07] MEDS: ENOXAPARIN 40 MG/0.4 ML (LOVENOX) SYR SC SCH (20:37)
--- NOTE | 2021-05-07 20:48 | Progress Note - Surgery ---
Subjective Date Seen by a Provider: May 07, 2021 Time Seen by a Provider: 07:36 Subjective/Events-last exam Patient is fatigued. Patient denies any epigastric abdominal pain at this time. Patient hemoglobin went from 9 to 8.8. Still having some shortness of breath at times. Especially with activity. Patient troponin elevated and has been started on heparin drip. Patient to go to cardiac Clinical Trials Specialist later today. Denies any nausea vomiting fever sweats chills or chest pain at this time. Objective Exam Vital Signs Date Time Temp Pulse Resp B/P (MAP) Pulse Ox O2 Delivery O2 Flow Rate FiO2 05/07/21 20:39 Nasal Cannula 4.00 05/07/21 20:00 36.4 73 20 132/82 (99) 92 Nasal Cannula 4.00 05/07/21 19:00 75 05/07/21 18:30 77 19 136/68 (90) 96 Nasal Cannula 4.00 05/07/21 17:30 71 21 151/68 (95) 94 Nasal Cannula 4.00 05/07/21 17:00 66 20 151/82 (105) 94 Nasal Cannula 4.00 05/07/21 16:30 64 20 154/73 (100) 93 Nasal Cannula 4.00 05/07/21 16:15 65 20 131/63 (85) 93 Nasal Cannula 4.00 05/07/21 16:00 68 19 141/66 (91) 93 Nasal Cannula 4.00 05/07/21 15:45 68 18 138/70 (92) 95 Nasal Cannula 4.00 05/07/21 15:30 65 19 149/72 (97) 94 Nasal Cannula 4.00 05/07/21 12:26 80 05/07/21 12:03 36.6 70 30 137/75 (95) 97 Nasal Cannula 4.00 05/07/21 09:22 95 Nasal Cannula 4.00 05/07/21 08:26 Nasal Cannula 4.00 05/07/21 07:17 36.5 81 29 128/81 (97) 93 Nasal Cannula 4.00 05/07/21 07:00 80 05/07/21 06:04 Nasal Cannula 4.50 05/07/21 04:00 82 38 133/74 (93) 93 Nasal Cannula 5.00 05/07/21 01:00 72 05/07/21 00:40 80 89 Nasal Cannula 5.00 05/07/21 00:00 75 19 151/68 (95) 94 Nasal Cannula 3.00 05/06/21 21:00 Nasal Cannula 4.00 05/06/21 21:00 84 158/81 (106) 94 Nasal Cannula 3.00 I & O 05/07/21 07:00 Intake Total 0 ml Output Total 1275 ml Balance -1275 ml Capillary Refill : Less Than 3 Seconds General Appearance: No Apparent Distress HEENT: PERRL/EOMI Neck: Full Range of Motion, Normal Inspection, Non Tender Respiratory: No Accessory Muscle Use, No Respiratory Distress Cardiovascular: Regular Rate, Rhythm, No JVD Gastrointestinal: non tender, soft Extremity: Normal Inspection, Non Tender, No Calf Tenderness Neurologic/Psychiatric: Alert, Oriented x3, No Motor/Sensory Deficits Skin: Normal Color, Warm/Dry Lymphatic: No Adenopathy Results Lab Laboratory Tests 05/07/21 00:45: White Blood Count 10.0, Red Blood Count 3.54L, Hemoglobin 8.8L, Hematocrit 30L, Mean Corpuscular Volume 84, Mean Corpuscular Hemoglobin 25, Mean Corpuscular Hemoglobin Concent 30L, Red Cell Distribution Width 16.0H, Platelet Count 201, Mean Platelet Volume 12.0, Immature Granulocyte % (Auto) 1, Neutrophils (%) (Auto) 65, Lymphocytes (%) (Auto) 24, Monocytes (%) (Auto) 10, Eosinophils (%) (Auto) 1, Basophils (%) (Auto) 0, Neutrophils # (Auto) 6.4, Lymphocytes # (Auto) 2.4, Monocytes # (Auto) 1.0, Eosinophils # (Auto) 0.1, Basophils # (Auto) 0.0, Immature Granulocyte # (Auto) 0.1, Prothrombin Time 15.0H, INR Comment 1.1, Activated Partial Thromboplast Time 39H, Sodium Level 142, Potassium Level 4.0, Chloride Level 110H, Carbon Dioxide Level 15L, Anion Gap 17H, Blood Urea Nitrogen 19H, Creatinine 1.24, Estimat Glomerular Filtration Rate 43, BUN/Creatinine Ratio 15, Glucose Level 102, Calcium Level 9.1, Phosphorus Level 4.8H, Magnesium Level 2.2, Troponin I 1.859*H 05/07/21 08:22: Activated Partial Thromboplast Time 128*H 05/07/21 12:00: Activated Partial Thromboplast Time 90H Assessment/Plan Assessment/Plan Assessment/Plan Epigastric abdominal pain Melena Anemia likely do to possible upper GI ulcer Congestive heart failure Coronary artery disease on antiplatelet therapy Elevated troponin Patient 66-year-old female with anemia transfuse PRBC as needed continue to monitor hemoglobin. Patient placed on Protonix 40 mg twice daily. Elevated troponin cardiology consulted and planning cath today. Keep n.p.o. had to be started on heparin which may need to hold if continues to become more anemic.. May need EGD/colonoscopy inpatient vs outpatient, would like antiplatelet off 5 days unless emergent. YEISON SOLANO DO May 07, 2021 20:48
[2021-05-08] MEDS: NS IV 1000 ML 1,000 ML IV SCH ×2 (02:52→11:25)
[2021-05-08 03:58] VITALS: BP 128/74
[2021-05-08 05:43] LABS: BASOPHILS # (AUTO) 0.1 10^3/uL (0.0-0.1); BASOPHILS % (AUTO) 1 % (0-10); EOSINOPHILS # (AUTO) 0.3 10^3/uL (0.0-0.3); EOSINOPHILS % (AUTO) 4 % (0-10); HEMATOCRIT 29 % (35-52); HEMOGLOBIN 8.6 g/dL (11.5-16.0); LYMPHOCYTES # (AUTO) 1.5 10^3/uL (1.0-4.0); LYMPHOCYTES % (AUTO) 19 % (12-44); MEAN CORPUSCULAR HEMOGLOBIN 24 pg (25-34); MEAN CORPUSCULAR HGB CONC 30 g/dL (32-36); MEAN CORPUSCULAR VOLUME 83 fL (80-99); MEAN PLATELET VOLUME 11.2 fL (9.0-12.2); MONOCYTES # (AUTO) 0.9 10^3/uL (0.0-1.0); MONOCYTES % (AUTO) 11 % (0-12); NEUTROPHILS # (AUTO) 5.2 10^3/uL (1.8-7.8); NEUTROPHILS % (AUTO) 65 % (42-75); PLATELET COUNT 192 10^3/uL (130-400)
--- NOTE | 2021-05-08 05:48 | Progress Note - Hospitalist ---
Subjective HPI/CC On Admission Date Seen by Provider: May 08, 2021 Time Seen by Provider: 11:00 Chief complaint: Shortness of breath History of present illness: This is a 66-year-old white female who has a past medical history of congestive heart failure and COPD who presented to the ER with shortness of breath after receiving 1 unit of blood for severe anemia ordered by primary care provider. She had previously had home oxygen 2 years ago but stopped using it since she did not need it. She stopped smoking in 2016. Cardiology has been consulted and patient will be monitor closely. She does have mild tachypnea but in no distress. Subjective/Events-last exam Ready for discharge Home O2 revealed 3 L continuous Objective Exam Vital Signs Vital Signs Date Time Temp Pulse Resp B/P (MAP) Pulse Ox O2 Delivery O2 Flow Rate FiO2 05/08/21 18:00 05/08/21 15:51 36.3 86 18 96 Nasal Cannula 3.00 Capillary Refill : Less Than 3 Seconds General Appearance: No Apparent Distress, WD/WN, Chronically ill Results/Procedures Lab Laboratory Tests 05/08/21 05:22 Patient resulted labs reviewed. Assessment/Plan Assessment and Plan Assess & Plan/Chief Complaint Assessment: Dyspnea Severe anemia requiring transfusion Congestive heart failure exacerbation COPD former smoker Elevated troponin Likely UGI ulcer Plan: Oxygen Diuresis Echo Cardiology consult Anemia work-up Hematology consult 05/07/21: Cath today EGD? Monitor hgb 05/08/2021: Discharge home Diagnosis/Problems Diagnosis/Problems (1) TACO (transfusion associated circulatory overload) Status: Acute (2) CHF exacerbation Status: Acute (3) Blood loss anemia Status: Acute (4) COPD GLENROY MAXWELL DO May 08, 2021 05:48
[2021-05-08 06:09] LABS: POTASSIUM 3.4 MMOL/L (3.6-5.0)
[2021-05-08 06:10] LABS: CALCIUM 8.9 MG/DL (8.5-10.1)
[2021-05-08 06:11] LABS: TOTAL PROTEIN 6.5 GM/DL (6.4-8.2)
[2021-05-08 06:13] LABS: BILIRUBIN,TOTAL 1.2 MG/DL (0.1-1.0)
[2021-05-08 06:14] LABS: CREATININE SERUM 1.14 MG/DL (0.60-1.30)
[2021-05-08] MEDS: CATHETER FLUSH 10 ML SYR IV SCH ×2 (06:41→14:00)
[2021-05-08] MEDS: KCL 20 MEQ TAB (K-DUR) PO SCH (06:42)
[2021-05-08] MEDS: FUROSEMIDE 40 MG/4 ML INJ (LASIX) IVP SCH (06:42)
[2021-05-08] MEDS: SUCRALFATE 1 GM (CARAFATE) TAB PO SCH ×2 (06:42→11:08)
[2021-05-08 08:00] VITALS: BP 135/72
[2021-05-08] MEDS: PANTOPRAZOLE 40 MG (PROTONIX) VIAL IV SCH (08:05)
[2021-05-08] MEDS: SENNA W/DOCUSATE (SENOKOT S) TABLET PO SCH (08:05)
--- NOTE | 2021-05-08 10:50 | Cardiology Progress Note ---
Subjective Date Seen by Provider: May 08, 2021 Time Seen by Provider: 08:00 Subjective/Events-last exam Patient was seen at bedside, feeling better. No new complaint Review of Systems General: No Chills, No Night Sweats; Fatigue; No Malaise, No Appetite, No Other HEENT: No Head Aches, No Visual Changes, No Eye Pain, No Ear Pain, No Dysphasia, No Sinus Congestion, No Post Nasal Drip, No Sore Throat, No Other Pulmonary: No Dyspnea, No Cough, No Pleuritic Chest Pain, No Other Cardiovascular: No: Chest Pain, Palpitations, Orthopnea, Paroxysmal Noc. Dyspnea, Edema, Lt Headedness, Other Objective-Cardiology Exam Last Set of Vital Signs Vital Signs 05/08/21 05/08/21 08:00 09:47 Temp 36.8 Pulse 75 Resp 15 B/P (MAP) 135/72 (93) Pulse Ox 97 O2 Delivery Nasal Cannula O2 Flow Rate 3.00 Capillary Refill : Less Than 3 Seconds I&O Intake and Output 05/08/21 00:00 Intake Total 400 ml Output Total 1400 ml Balance -1000 ml Intake Oral 400 ml Output Urine Total 1400 ml General: Alert, Oriented X3, Cooperative HEENT: Atraumatic, PERRLA Neck: Supple, No JVD, No Thyromegaly Lungs: Clear to Auscultation, Normal Air Movement Heart: Regular Rate, Normal S1, Normal S2, No Murmurs Abdomen: Normal Bowel Sounds, Soft, No Tenderness, No Hepatosplenomegaly, No Masses Extremities: No Clubbing, No Cyanosis, No Edema, Normal Pulses, No Tenderness/Swelling Skin: No Rashes, No Breakdown, No Significant Lesion Neuro: Normal Gait, Normal Speech, Strength at 5/5 X4 Ext, Normal Tone, Sensation Intact Psych/Mental Status: Mental Status NL, Mood NL Results Lab Laboratory Tests 05/08/21 05:22 A/P-Cardiology Admission Diagnosis Coronary artery disease Congestive heart failure Hypertension Hyperlipidemia Assessment/Plan Coronary artery disease, cardiac catheterization was carried out on 08/07/2021 showing severe stenosis in the circumflex/obtuse marginal branch that required stenting, once the stent is deployed patient will need to be on dual antipla telet therapy for at least 3 months and possibly 1 year, had long discussion with the patient and her daughter recommended conservative management for now due to the stable lesion Non-ST elevation myocardial infarction, conservative management as described above, plan to do stenting to the circumflex artery once clinically more stable Congestive heart failure, chronic compensated left ventricular systolic dysfunction, conservative management is recommended. Continue to monitor Severe carotid artery stenosis, bilateral disease, ultrasound was done, official report is still pending. We will arrange for referral for vascular surgery evaluation Echocardiogram done on May 06, 2021 showing normal LV size, ejection fraction 35 to 40%, left atrium severely dilated, severe tricuspid regurgitation and mitral regurgitation, PA pressure 61 mmHg. Patient could benefit from referral for evaluation for mitral valve repair Anemia, GI bleed, requiring blood transfusion, discussed with Dr. Fabian who recommended stopping aspirin and Plavix for 5 to 7 days prior to proceeding with endoscopy Hyperlipidemia, monitor lipids SUSAN LIM MD May 08, 2021 10:50
[2021-05-08] MEDS ORDERED: SUCR1TAB PO ×2 (11:04)
[2021-05-08] MEDS ORDERED: CLOP75TA69 PO ×2 (11:04)
[2021-05-08] MEDS ORDERED: PANT40TA52 PO ×2 (11:04)
--- NOTE | 2021-05-08 11:19 | Diagnostic Imaging Report ---
PROCEDURE: US carotid duplex, bilateral. TECHNIQUE: Multiple real-time grayscale images were obtained over the carotid arteries in various projections, bilaterally. Additional spectral analysis and color Doppler duplex images were also obtained. INDICATION: Carotid stenosis. FINDINGS: There is a large amount of plaque identified in the mid right common carotid artery. There are dampened velocities in the right common carotid artery measuring 20 cm/s. The right internal carotid artery is occluded. There is large amount of plaque in the proximal right external carotid artery and accurate velocities are difficult to obtain in the right external carotid artery but there is likely a significant stenosis. Moderate plaque in the left carotid bulb is seen. There is a large amount of plaque in the proximal left ICA with velocities reaching 608 cm/s, consistent with greater than 90% diameter stenosis. There is also plaque in the proximal external carotid artery. Both vertebral arteries show antegrade flow. IMPRESSION: There is significant plaque in both carotid systems. The right internal carotid artery is occluded. There is a high-grade stenosis of the left internal carotid artery. CT angiography or conventional angiography may be useful for further characterization. Parameters based on the consensus panel Walker-Scale and Doppler ultrasound criteria published September 2003, Radiology, Volume 229. DOPPLER (peak systolic velocity M/S Right Left CCA .20 .68 ICA Proximal NA 6.1 ICA Mid NA 1.6 ICA Distal NA .98 RATIO NA 9.0 ECA .32 .71 VERT .98 1.2 Dictated by: Dictated on workstation # [id number]
--- NOTE | 2021-05-08 12:33 | D/C HH Face to Face Order ---
D/C Face to Face Orders Reconcile Patient Problems Problems Reviewed?: Yes Instructions for Patient Via [facility], Patient Instructions/FollowUp: [facility] 1 week Physician to follow Patient: [facility] Discharge Diet for Home: No Restrictions Patient Problems: Anemia CHF CAD Patient Data-Allergies,Ht & Wt Patient Allergies: Coded Allergies: No Known Drug Allergies (Unverified , 05/05/19) Height (Feet): 5 Height (Inches): 6.00 Weight (Pounds): 150 Weight (Ounces): 4.8 Home Health Need/Face to Face Date of Face to Face: May 08, 2021 Clinical Findings: Instability, Muscle weakness I have seen Pt [id number]: Yes Discharged To: Home Diagnosis/Conditions: Debility Patient is Homebound due to: Muscle weakness, Shortness of breath/distress Homebound Status Due to the above stated illness, injury or surgical procedure (medical condition or diagnosis) and associated clinical findings, the patient is homebound because of his/her inability to leave home except with aid of a supportive device and/or person AND leaving the home requires a considerable and taxing effort or is medically contraindicated. Pt req the following assistanc: Walker Home Health Nursing Orders Home Health Services Order: Nursing Services, Digital Forensic Analyst-Evaluate & Treat, Physical Therapy-Evaluate & Treat Certify Stmt I certify that this patient is under my care and that I, a nurse practitioner or a physician; a day care assistant working with me, had a face to face encounter that - meets the physician face to face encounter requirements with this patient as dated. GLENROY MAXWELL DO May 08, 2021 12:33
[2021-05-08] MEDS ORDERED: POTA10TA PO ×2 (12:59)
[2021-05-08] MEDS ORDERED: FURO-125 PO ×2 (12:59)
[2021-05-08] MEDS ORDERED: POTA20TA8 PO ×2 (12:59)
[2021-05-08 13:00] VITALS: BP 140/84
--- NOTE | 2021-05-08 13:24 | Occupational Therapy Eval ---
OT Evaluation-General/PLF Medical Diagnosis Admission Date May 06, 2021 at 15:01 Medical Diagnosis: Dyspnea, Anemia, CHF exacerbation Onset Date: May 06, 2021 Therapy Diagnosis Therapy Diagnosis: Weakness, Decreased ADL skills Height/Weight Height (Feet): 5 Height (Inches): 6.00 Weight (Pounds): 150 Weight (Ounces): 4.8 Precautions Precautions/Isolations: Fall Prevention, Standard Precautions Weight Bear Status Weight Bearing Restriction: Weight Bearing/Tolerated Referral Physician: Dr. Dave Referral Reason: Activity Tolerance, Self Care, Evaluation/Treatment, Strengthening/ROM Medical History Pertinent Medical History: COPD Current History Pt. came to ER with SOB after receiving blood for anemia. Was on home O2 but stopped using it because she did not need it. Reviewed History: Yes Social History Home: Single Level Current Living Status: Spouse (Spouse has dementia but is functional) Entry Into Home: Stairs With Railing Steps Into Home: 2 ADL-Prior Level of Function SCALE: Activities may be completed with or without assistive devices. 3-Hmayrlonfq-uvhfkwh completes the activity by him/herself with no assistance from a helper. 5-Set-up or Clean-up Assistance-helper sets up or cleans up; patient completes activity. Lillian assists only prior to or following the activity. 4-Supervision or Touching Assistance-helper provides verbal cues and/or touching/steadying and/or contact guard assistance as patient completes activity. Assistance may be provided throughout the activity or intermittently. 3-Partial/Moderate Assistance-helper does LESS THAN HALF the effort. Lillian lifts, holds or supports trunk or limbs, but provides less than half the effort. 2-Substantial/Maximal Assistance-helper does MORE THAN HALF the effort. Lillian lifts or holds trunk or limbs and provides more than half the effort. 8-Wgebqssda-lnckll does ALL the effort. Patient does none of the effort to complete the activity. Or, the assistance of 2 or more helpers is required for the patient to complete the activity. If activity was not attempted, code reason: 7-Patient Refused. 9-Not Applicable-not attempted and the patient did not perform the activity before the current illness, exacerbation or injury. 10-Not Attempted due to Environmental Limitations-(lack of equipment, weather restraints, etc.). 88-Not Attempted due to Medical Conditions or Safety Concerns. ADL PLOF Comments Pt. states that she was independent with ADL skills until recently, until she became ill. Was wearing home 02, but stopped due to not needing it. She lives in [facility]. Self Care: Independent Functional Cognition: Independent DME/Equipment: Bath Chair, Shower DME/Equipment Comments Pt. states that she has a 4 ww that she doesnt use, and a cane. OT Current Status Subjective Pt. does not report pain, but is tearful about having diarrhea. Mental Status/Objective Patient Orientation: Person, Place, Time, Situation Attachments: IV, Oxygen ADL-Treatment Eating (QC): 6 (per pt.) On/Off Footwear (QC): 5 (Slip on slippers.) Toileting Hygiene (QC): 3 (Please see note.) Other Treatments When OT entered room, pt. laying on side and tearful. States that she had been incontinent of stool in bed, because she had been given medication to make her "go." OT cleansed pt. quickly, as she was attempting to get off of her mess. Pt. continued to be tearful and impulsive while OT setting BSC up. Transferred supine-sit with SBA. OT looking for gait belt and had someone to find one when pt. wanted to stand quickly to get to BSC with walker. Transferred with CGA, but states that she hasn't been up for awhile, and doesn't know if she can do it. Pt. continued to have loose bowel on BSC. Encouraged to attempt cleansing herself, and she is able to do so by leaning on commode. Pt. worried about discharge, as she has drive to [facility] and worried about going again in car. Declines putting on her pajamas yet, and requests medication to "make it stop." Pt. transferred back to bed with SBA and all needs were met. Social work came in to talk with pt., and OT left message for nursing about request for medication. Goals will be written in the case of pt. not discharging home, as she would benefit from continued strengthening and training for independence with skilled tasks. Education OT Patient Education: Correct positioning, Modified ADL techniques, Progress toward Goal/Update tx plan, Purpose of tx/functional activities, Reviewed precautions, Rehab process, Transfer techniques Teaching Recipient: Patient Teaching Methods: Demonstration, Discussion Response to Teaching: Verbalize Understanding, Return Demonstration, Reinforcement Needed OT Assisted Goals Pipe Blanks Cut Off Saw Operator Goals Time Frame: May 15, 2021 Eating (QC): 6 Oral Hygiene (QC): 6 Toileting Hygiene (QC): 6 Shower/Bathe Self (QC): 4 Upper Body Dressing (QC): 6 Lower Body Dressing (QC): 6 On/Off Footwear (QC): 6 Additional Goals: 1-Demonstrate ADL Tasks, 2-Verbalize Understanding, 3-Improve Strength/Kwame 1=Demonstrate adherence to instructed precautions during ADL tasks. 2=Patient will verbalize/demonstrate understanding of assistive devices/modifications for ADL. 3=Patient will improve strength/tolerance for activity to enable patient to pe rform ADL's. OT Education/Plan Problem List/Assessment Assessment: Decreased Activ Tolerance, Impaired I ADL's, Impaired Self-Care Skills Discharge Recommendations Plan/Recommendations: Continue POC Therapy Discharge Recommendati: Post Acute OT Comment To be determined Treatment Plan/Plan of Care Treatment,Training & Education: Yes Patient would benefit from OT for education, treatment and training to promote independence in ADL's, mobility, safety and/or upper extremity function for ADL's. Plan of Care: ADL Retraining, Functional Mobility, UE Funct Exercise/Act Treatment Duration: May 15, 2021 Frequency: 5 times per week Estimated Hrs Per Day: .25 hour per day Agreement: Yes Rehab Potential: Good Time/GCodes Start Time: 12:55 Stop Time: 13:17 Total Time Billed (hr/min): 22 Billed Treatment Time 1, RIVKA PEDERSEN OT May 08, 2021 13:24
--- NOTE | 2021-05-08 15:16 | Physical Therapy Evaluation ---
PT Evaluation-General Medical Diagnosis Admission Date May 06, 2021 at 15:01 Medical Diagnosis: Dyspnea, Anemia, CHF exacerbation Onset Date: May 06, 2021 Therapy Diagnosis Therapy Diagnosis: impaired mobility, strength, endurance Height/Weight Height (Feet): 5 Height (Inches): 6.00 Weight (Pounds): 150 Weight (Ounces): 4.8 Precautions Precautions/Isolations: Fall Prevention, Standard Precautions Referral Physician: Dr. 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 3-Wmbznpbqde-iwiouef completes the activity by him/herself with no assistance from a helper. 5-Set-up or Clean-up Assistance-helper sets up or cleans up; patient completes activity. [place] assists only prior to or following the activity. 4-Supervision or Touching Assistance-helper provides verbal cues and/or touching/steadying and/or contact guard assistance as patient completes activi ty. Assistance may be provided throughout the activity or intermittently. 3-Partial/Moderate Assistance-helper does LESS THAN HALF the effort. [place] lifts, holds or supports trunk or limbs, but provides less than half the effort. 2-Substantial/Maximal Assistance-helper does MORE THAN HALF the effort. [place] lifts or holds trunk or limbs and provides more than half the effort. 7-Wdofcjbah-eazgyg does ALL the effort. Patient does none of the effort to complete the activity. Or, the assistance of 2 or more helpers is required for the patient to complete the activity. If activity was not attempted, code reason: 7-Patient Refused. 9-Not Applicable-not attempted and the patient did not perform the activity before the current illness, exacerbation or injury. 10-Not Attempted due to Environmental Limitations-(lack of equipment, weather restraints, etc.). 88-Not Attempted due to Medical Conditions or Safety Concerns. Bed Mobility: 6 Transfers (B,C,W/C): 6 Gait: 6 Stairs: 6 Indoor Mobility (Ambulation): Independent Stairs: Independent Prior Device Use: SPC PT Evaluation-Current Subjective Patient in bed pre tx, agrees to PT, has only some minor back pain. Pt/Family Goals to be independent at home Objective Patient Orientation: Person, Place, Situation Attachments: Oxygen ROM/Strength ROM Lower Extremities WNL Strength Lower Extremities LLE (hip flexin 3/5, knee flexion 4-/5, knee extension 4-/5, dorsiflexion 3+/5), RLE (hip flexin 3+/5, knee flexion 4/5, knee extension 4/5, dorsiflexion 3+/5) Sensory Vision: Functional Hearing: Functional Sensation Right Lower Extremit: Intact Sensation Left Lower Extremity: Intact Transfers Roll Left to Right (QC): 6 Sit to Lying (QC): 6 Lying to Sitting/Side of Bed(Q: 6 Sit to Stand (QC): 4 Chair/Tqw-cq-Yzivc Xfer(QC): 4 Gait Does the Patient Walk?: Yes Mode of Locomotion: Walk Anticipated Mode of Locomotion: Walk Walk 10 feet (QC): 4 Walk 50 ft with 2 Turns(QC): 4 Walk 150 ft (QC): 4 Distance: 150' Gait Assistive Device: FWW Comments/Gait Description Patient ambulated slow but steady, she was performing purse lip breathing, started getting very SOB and returned to her room. Balance Sitting Static: Normal Sitting Dynamic: Normal Standing Static: Good Standing Dynamic: Good Treatment BLE supine exercises x20 (AP, HS, QS) Assessment/Needs Patient has impaired mobility, strength, endurance. Patient in bed post tx with nurse call, phone, tray, all needs met. Patient's O2 was 97% after returning to bed. Rehab Potential: Fair PT Fdc Goals Men'S Garment Fitter Goals PT Fdc Goals Time Frame: May 15, 2021 Roll Left & Right (QC): 6 Sit to Lying (QC): 6 Lying-Sitting on Side/Bed(QC): 6 Sit to Stand (QC): 5 Chair/Bup-xn-Nofli Xfer(QC): 5 Toilet Transfer (QC): 5 Walk 10 feet (QC): 5 Walk 50ft with 2 Turns (QC): 5 Walk 150 ft (QC): 5 PT Plan Problem List Problem List: Activity Tolerance, Functional Strength, Safety, Balance, Gait, Transfer, ROM Treatment/Plan Treatment Plan: Continue Plan of Care Treatment Plan: Education, Functional Activity Kwame, Functional Strength, Gait, Safety, Therapeutic Exercise, Transfers Treatment Duration: May 15, 2021 Frequency: 6 times per week Estimated Hrs Per Day: .25 hour per day Patient and/or Family Agrees t: Yes Safety Risks/Education Patient Education: Gait Training, Transfer Techniques, Correct Positioning, Safety Issues Teaching Recipient: Patient Teaching Methods: Demonstration, Discussion Response to Teaching: Reinforcement Needed Discharge Recommendations Plan Patient will perform bed mobility and transfer training, balance and endurance training, functional strengthening, stair training, gait training, and education, to improve functional mobility and independence at home. Therapy Discharge Recommendati: Home & Family, Post Acute PT Time/GCodes Time In: 1432 Time Out: 1449 Total Billed Treatment Time: 17 Total Billed Treatment 1 visit JORDAN MARTINEZ PT May 08, 2021 15:15
[2021-05-08 15:51] VITALS: BP 139/82
--- NOTE | 2021-05-08 16:27 | Physician Query Clarification ---
Physician Query-General Query to Physician: The medical record reflects the following clinical scenario: The patient, in the setting of History/Risk factors, CAD, Severe Anemia, "Small vessel disease" Clinical Findings troponin I 0.295, 0.686 to 1.859, Chest pain, Dyspnea, Treatment Heparin gtt, Cardiology consult, Cardiac cath showing interventions needed when it is safe to give anticoags Question: Do you agree with the impression of NSTEMI per Dr. lEoy Antony and Dr. Madonna Holcomb? 1. Yes; will document NSTEMI in the setting of severe anemia, present on admission in the Progress Notes 2. No; will continue to document elevated Troponin in the Progress Notes 3. Other; will document explanation of clinical findings 4. Clinically undetermined; no explanation for clinical findings Please clarify and document your clinical opinion in the Progress Notes and Discharge Summary including the definitive and/or presumptive diagnosis, (suspected or probable), related to the above clinical findings. Please include clinical findings supporting your diagnosis. In responding to this query, please exercise your independent professional judgment. The purpose of this communication is to more accurately reflect the complexity of your patients condition. The fact that a question is asked does not imply that any particular answer is desired or expected. Please remember a lack of response to the above will prompt a phone page by CDI/coding staff Thank you for timely response to this clarification. Bety Stewart MSN, RN [phone] [email or web address] PHYSICIAN RESPONSE: Based on the clinical findings in the record, please respond to the query above on this document as an addendum. Physician Response: Physician Response 1 If you have questions please contact: Security Advisor: Ext: Thank you for your time and cooperation. Clinical Saw Grinder/Security Advisor This is a permanent part of the medical record BETY STEWART May 08, 2021 16:27 GLENROY MAXWELL DO May 08, 2021 19:46
--- NOTE | 2021-05-08 17:03 | Progress Note - Surgery ---
Subjective Date Seen by a Provider: May 08, 2021 Time Seen by a Provider: 16:01 Subjective/Events-last exam Patient doing well. Wanting to go home. Anemic. Planning for EGD/COlonoscopy as outpatient. Denies abdominal pain. N/v fever sweats chills shortness of breath or chest pain. Objective Exam Vital Signs Date Time Temp Pulse Resp B/P (MAP) Pulse Ox O2 Delivery O2 Flow Rate FiO2 05/08/21 15:51 36.3 86 18 139/82 (101) 96 Nasal Cannula 3.00 05/08/21 13:00 92 05/08/21 13:00 36.6 73 22 140/84 (102) 97 Nasal Cannula 3.00 05/08/21 09:47 Nasal Cannula 3.00 05/08/21 08:03 Nasal Cannula 3.00 05/08/21 08:00 36.8 75 15 135/72 (93) 97 Nasal Cannula 3.00 05/08/21 07:00 63 05/08/21 03:58 36.7 72 16 128/74 (92) 96 Nasal Cannula 3.00 05/08/21 01:00 65 05/07/21 23:24 36.4 71 21 153/76 (101) 98 Nasal Cannula 3.00 05/07/21 21:53 95 Nasal Cannula 4.00 05/07/21 20:39 Nasal Cannula 4.00 05/07/21 20:30 71 20 124/84 (97) 96 Nasal Cannula 4.00 05/07/21 20:00 36.4 73 20 132/82 (99) 92 Nasal Cannula 4.00 05/07/21 19:00 75 05/07/21 18:30 77 19 136/68 (90) 96 Nasal Cannula 4.00 05/07/21 17:30 71 21 151/68 (95) 94 Nasal Cannula 4.00 I & O 05/08/21 07:00 Intake Total 400 ml Output Total 1700 ml Balance -1300 ml Capillary Refill : Less Than 3 Seconds General Appearance: No Apparent Distress, WD/WN, Chronically ill HEENT: PERRL/EOMI Neck: Full Range of Motion, Normal Inspection, Non Tender Respiratory: Chest Non Tender, No Accessory Muscle Use, No Respiratory Distress Cardiovascular: Regular Rate, Rhythm, No JVD Gastrointestinal: non tender, soft Extremity: Normal Inspection, Non Tender, No Calf Tenderness Neurologic/Psychiatric: Alert, Oriented x3, No Motor/Sensory Deficits, Normal Mood/Affect Skin: Normal Color, Warm/Dry Lymphatic: No Adenopathy Results Lab Laboratory Tests 05/08/21 05:22: White Blood Count 8.0, Red Blood Count 3.52L, Hemoglobin 8.6L, Hematocrit 29L, Mean Corpuscular Volume 83, Mean Corpuscular Hemoglobin 24L, Mean Corpuscular Hemoglobin Concent 30L, Red Cell Distribution Width 16.2H, Platelet Count 192, Mean Platelet Volume 11.2, Immature Granulocyte % (Auto) 1, Neutrophils (%) (Auto) 65, Lymphocytes (%) (Auto) 19, Monocytes (%) (Auto) 11, Eosinophils (%) (Auto) 4, Basophils (%) (Auto) 1, Neutrophils # (Auto) 5.2, Lymphocytes # (Auto) 1.5, Monocytes # (Auto) 0.9, Eosinophils # (Auto) 0.3, Basophils # (Auto) 0.1, Immature Granulocyte # (Auto) 0.0, Sodium Level 141, Potassium Level 3.4L, Chloride Level 105, Carbon Dioxide Level 22, Anion Gap 14, Blood Urea Nitrogen 19H, Creatinine 1.14, Estimat Glomerular Filtration Rate 48, BUN/Creatinine Ratio 17, Glucose Level 95, Calcium Level 8.9, Corrected Calcium 8.9, Total Bilirubin 1.2H, Aspartate Amino Transf (AST/SGOT) 32, Alanine Aminotransferase (ALT/SGPT) 13, Alkaline Phosphatase 72, Total Protein 6.5, Albumin 4.0 Assessment/Plan Assessment/Plan Assessment/Plan Epigastric abdominal pain Melena Anemia likely do to possible upper GI ulcer Congestive heart failure Coronary artery disease on antiplatelet therapy Elevated troponin Patient 66-year-old female with anemia transfuse PRBC as needed continue to monitor hemoglobin. Protonix 40 mg twice daily. Plan EGD/colonoscopy outpatient, would like antiplatelet off 5 days. YEISON SOLANO DO May 08, 2021 17:03
[2021-05-09] MEDS ORDERED: IRON SUCROSE 200 MG/10 ML (VENOFER) VIAL IV SCH (09:00)
== END 2021-05-08 18:00 | disposition home health service (06) | DRG 280 ==
LOC: EDUNIT# 13:26 → ER 13:27 → CSD 15:01
PROVIDERS: ADMIT Internal Medicine; ATTEND Internal Medicine
PROC: 4A023N7 Measurement of Cardiac Sampling and Pressure, Left Heart, Percutaneous Approach (ICD-10-PCS; principal; 2021-05-07)
PROC: B2111ZZ Fluoroscopy of Multiple Coronary Arteries using Low Osmolar Contrast (ICD-10-PCS; 2021-05-07)
PROC: B2151ZZ Fluoroscopy of Left Heart using Low Osmolar Contrast (ICD-10-PCS; 2021-05-07)
PROC: B3101ZZ Fluoroscopy of Thoracic Aorta using Low Osmolar Contrast (ICD-10-PCS; 2021-05-07)
DX: I11.0 Hypertensive heart disease with heart failure (principal); I21.4 Non-ST elevation (NSTEMI) myocardial infarction; K25.4 Chronic or unspecified gastric ulcer with hemorrhage; I50.23 Acute on chronic systolic (congestive) heart failure; D50.0 Iron deficiency anemia secondary to blood loss (chronic); E87.71 Transfusion associated circulatory overload; I42.9 Cardiomyopathy, unspecified; I08.1 Rheumatic disorders of both mitral and tricuspid valves; I70.0 Atherosclerosis of aorta; J44.9 Chronic obstructive pulmonary disease, unspecified; I25.10 Atherosclerotic heart disease of native coronary artery without angina pectoris; E78.00 Pure hypercholesterolemia, unspecified; E78.2 Mixed hyperlipidemia; K21.9 Gastro-esophageal reflux disease without esophagitis; Z95.5 Presence of coronary angioplasty implant and graft; Z79.82 Long term (current) use of aspirin; M17.0 Bilateral primary osteoarthritis of knee; M47.9 Spondylosis, unspecified; Z87.891 Personal history of nicotine dependence
CPT/HCPCS: 36221; 36415; 51702; 71045; 80048; 80053; 82728; 83540; 83550; 83615; 83735; 83880; 84100; 84484; 85025; 85610; 85730; 93005; 93041; 93306; 93458; 93880; 94761

== ENCOUNTER → 2021-05-08 | Outpatient (CLI) | payer MEDICARE, MEDICAID ==
[~2021-05-08] MED LIST changes: +CARV6.252 PO; +CHOL10007 PO; +FURO-125 PO; +MULT-1067 PO; +POTA10TA PO; +POTA20TA8 PO; +SENN-234 PO
== END | disposition home or self-care (01) ==
LOC: PREOP 11:33
PROVIDERS: ATTEND Surgery
DX: Z01.818 Encounter for other preprocedural examination (principal)

== ENCOUNTER → 2021-05-12 | Outpatient (CLI) | payer MEDICARE, MEDICAID | LOC: LAB FS 10:30 | PROVIDERS: ATTEND Surgery | DX: Z01.812 Encounter for preprocedural laboratory examination (principal); D64.9 Anemia, unspecified; Z20.822 Contact with and (suspected) exposure to COVID-19 | CPT/HCPCS: 87635 ==

== ENCOUNTER 2021-05-13 12:08 | Day surgery (SDC) | payer MEDICARE, MEDICAID ==
[~2021-05-13] VITALS: Ht 167.6 cm; Wt 74.9 kg
[2021-05-13] VITALS (7 sets, daily range): BP systolic 105–154; BP diastolic 60–83
[2021-05-13] MEDS ORDERED: LACTATED RINGERS 1,000 ML IV STA (12:09)
[2021-05-13] MEDS ORDERED: HURRICAINE EXT TUBE (BENZOCAINE) XX PRN (12:15)
[2021-05-13] MEDS ORDERED: MIDAZOLAM 2 MG/2 ML (VERSED) VIAL ONE (12:59)
[2021-05-13] MEDS ORDERED: PROPOFOL INJECTION 50 ML IV ONE (13:00)
--- NOTE | 2021-05-13 13:07 | Progress Note-Pre Operative ---
Pre-Operative Progress Note H&P Reviewed The H&P was reviewed, patient examined and no changes noted. Date Seen by Provider: May 13, 2021 Time Seen by Provider: 13:07 Date H&P Reviewed: May 13, 2021 Time H&P Reviewed: 13:07 Pre-Operative Diagnosis: epigastric abd pain, melena, anemia YEISON SOLANO DO May 13, 2021 13:07
--- NOTE | 2021-05-13 14:00 | Discharge Inst-Simple/Standard ---
Discharge Inst-Standard Patient Instructions/Follow Up Plan of Care/Instructions/FU: 2 WEEKS RUSS Activity as Tolerated: Yes Discharge Diet: Regular Diet YEISON SOLANO DO May 13, 2021 14:00
--- NOTE | 2021-05-13 14:03 | Progress Note-Post Operative ---
Post-Operative Progess Note Surgeon (s)/Installer (s) Surgeon YEISON SOLANO DO Installer: NA Pre-Operative Diagnosis epigastric abd pain, melena, anemia Post-Operative Diagnosis avm duodenum, gastritis, small h/h, inflammation rectosigmoid and anorectal areas Procedure & Operative Findings Date of Procedure 05/13/21 Procedure Performed/Findings egd c biopsies, colonoscopy c cold biopsies Anesthesia Type per field interviewer Estimated Blood Loss Estimated blood loss (mL): scant Specimens/Packing Specimens Removed antrum, ge, rectosigmoid, anorectal YEISON SOLANO DO May 13, 2021 14:03
--- NOTE | 2021-05-13 14:18 | Anesthesia-General Post-Op ---
MAC Patient Condition Mental Status/LOC: Same as Preop Cardiovascular: Satisfactory Nausea/Vomiting: Absent Respiratory: Satisfactory Pain: Controlled Complications: Absent Post Op Complications Complications None Follow Up Care/Instructions Patient Instructions None needed. Anesthesiology Discharge Order Discharge Order Patient is doing well, no complaints, stable vital signs, no apparent adverse anesthesia problems. No complications reported per nursing. BOBBI VILLARREAL UTILIZATION SPECIALIST May 13, 2021 14:18
--- NOTE | 2021-05-14 00:58 | OPERATIVE REPORT ---
DATE OF SERVICE: 05/13/2021 PREOPERATIVE DIAGNOSIS: Anemia, epigastric abdominal pain and melena. POSTOPERATIVE DIAGNOSES: AVM duodenum, gastritis, small hiatal hernia, inflammation rectosigmoid and anorectal areas. ANESTHESIA: Per PSYCHOLOGY ASSOCIATE. SURGEON: Dennis Fabian DO PROCEDURE: EGD with biopsies, colonoscopy with cold biopsies. ESTIMATED BLOOD LOSS: Scant. COMPLICATIONS: None. INDICATIONS: The patient is a 66-year-old female with epigastric abdominal pain, melena and anemia. She understands risks and benefits of procedure for further evaluation. She understands and wishes to proceed. Consent was signed in the chart. DESCRIPTION OF PROCEDURE: The patient was taken to the endoscopy suite, placed in left lateral recumbent position. Timeout was performed. Scope was inserted in mouth, down the esophagus, stomach and into the duodenum. No polyps, masses or ulcerations. A nonbleeding AVM noted. Scope was then slowly retracted back to stomach where it was further insufflated. Areas of inflammation consistent with gastritis were present. A biopsy of the antrum was obtained. Scope was retroflexed noting a small hiatal hernia, no other pathology. Scope was returned to its normal position, slowly withdrawn to distal esophagus. Biopsy of the GE junction was obtained. Scope was then slowly retracted back until completely removed. A digital rectal exam was performed. There were no palpable polyps, masses or ulcerations. Scope was inserted in the rectum, advanced all the way to cecum with minimal difficulty. Prep was adequate with irrigation and suction. Scope was then slowly retracted back. No polyps, masses or ulcerations within the cecum, ascending, transverse and descending colon. In the sigmoid colon at the rectosigmoid region very difficult to visualize. There was a small segment of significant erythema. A cold biopsy was able to be obtained, but multiple different positions were attempted to visualize this area better, but due to the area difficult to completely visualize. Scope was then continuously slowly retracted back in the rectum, where it was also retroflexed and then returned to its normal position, slowly withdrawn and inserted multiple times at the anorectal area. Slight mucosal changes present. Slight inflammation. Biopsy of this anorectal region was performed as well. Scope was slowly retracted back until completely removed. RECOMMENDATIONS: The patient will continue on current medications. Follow up in 2 weeks to discuss pathology results. We would consider repeating a flexible sigmoidoscopy in 3 to 6 months to reevaluate the areas of the anorectal and rectosigmoid region. Job ID: [id number] DocumentID: [id number] Dictated Date: 05/13/2021 14:06:53 Home Care Aide Date: 05/13/2021 16:06:19 Dictated By: DO JABARI PIMENTEL
== END 2021-05-13 15:45 | disposition home or self-care (01) ==
LOC: ENDO 12:08
PROVIDERS: ATTEND Surgery
DX: K21.00 Gastro-esophageal reflux disease with esophagitis, without bleeding (principal); K52.831 Collagenous colitis; K29.70 Gastritis, unspecified, without bleeding; D64.9 Anemia, unspecified; J44.9 Chronic obstructive pulmonary disease, unspecified; Q27.33 Arteriovenous malformation of digestive system vessel; I25.10 Atherosclerotic heart disease of native coronary artery without angina pectoris; R51.9 Headache, unspecified; E78.00 Pure hypercholesterolemia, unspecified; M19.90 Unspecified osteoarthritis, unspecified site; I11.0 Hypertensive heart disease with heart failure; I50.9 Heart failure, unspecified; Z79.82 Long term (current) use of aspirin; Z79.899 Other long term (current) drug therapy; Z79.02 Long term (current) use of antithrombotics/antiplatelets; Z87.891 Personal history of nicotine dependence
CPT/HCPCS: 88305

== ENCOUNTER 2021-05-30 14:23 | Inpatient (IN) | payer MEDICARE, MEDICAID ==
[~2021-05-30] VITALS: Ht 167.6 cm; Wt 68.2 kg
[2021-05-30 15:22] LABS: HEMATOCRIT 25 % (35-52); LYMPHOCYTES % (AUTO) 14 % (12-44); MEAN CORPUSCULAR HEMOGLOBIN 23 PG (25-34); MEAN CORPUSCULAR HGB CONC 28 G/DL (32-36); MEAN CORPUSCULAR VOLUME 84 FL (80-99); MEAN PLATELET VOLUME 11.6 FL (7.4-10.4); NEUTROPHILS % (AUTO) 77 % (42-75); PLATELET COUNT 315 10^3/uL (130-400); WHITE BLOOD COUNT 10.1 10^3/uL (4.3-11.0)
[2021-05-30 15:23] LABS: BASOPHILS # (AUTO) 0.1 10^3/uL (0.0-0.1); BASOPHILS % (AUTO) 1 % (0-10); EOSINOPHILS # (AUTO) 0.1 10^3/uL (0.0-0.3); EOSINOPHILS % (AUTO) 1 % (0-10); LYMPHOCYTES # (AUTO) 1.4 X 10^3 (1.0-4.0); MONOCYTES # (AUTO) 0.7 X 10^3 (0.0-1.0); MONOCYTES % (AUTO) 7 % (0-12); NEUTROPHILS # (AUTO) 7.7 X 10^3 (1.8-7.8)
[2021-05-30 15:24] LABS: PROTHROMBIN TIME PATIENT 13.4 SEC (12.2-14.7)
--- NOTE | 2021-05-30 15:26 | ED General ---
General Chief Complaint: General Problems/Pain Stated Complaint: WEAKNESS Nursing Triage Note: Patient presents to the ED with c/o generalized weakness. She reports that she had labs drawn at her PCP's office yesterday and her hemoglobin level was 7.5. Today she started feeling weaker and was instructed to come to the ED by her PCP for further evaluation. Source of Information: Patient History of Present Illness Date Seen by Provider: May 30, 2021 Time Seen by Provider: 14:29 Initial Comments 66-year-old female presenting by private vehicle with complaints of generalized weakness and fatigue. She states that she had labs drawn with her primary care provider yesterday and was told that her hemoglobin was 7.5. Today she was feeling weaker and was advised to come to the emergency department. She recently had a GI bleed with scopes done at [facility] in [place]. She had recent transfusion due to anemia. She also recently was treated and evaluated for congestive heart failure and started on oxygen in April. She denies any fever but has been having chills. She has a chronic mild cough. She denies any pain with urination or diarrhea. She is anxious and worried about feeling so weak. Associated Systoms: No Chest Pain; Cough (Mild intermittent); No Diaphoresis, No Fever/Chills (No fever but is having chills), No Headaches; Malaise; No Nausea/Vomiting, No Rash, No Seizure; Shortness of Air (Chronic); No Syncope; Weakness (Generalized) Allergies and Home Medications Allergies Coded Allergies: No Known Drug Allergies (Verified , 05/13/21) Home Medications Ascorbate Calcium 500 Mg Tablet, 500 MG PO DAILY, (Reported) Aspirin 81 Mg Tab.chew, 81 MG PO DAILY, (Reported) Atorvastatin Calcium 80 Mg Tablet, 80 MG PO DAILY, (Reported) Carvedilol 6.25 Mg Tablet, 6.25 MG PO BID, (Reported) Cholecalciferol (Vitamin D3) 25 Mcg Capsule, 25 MCG PO DAILY, (Reported) Clopidogrel Bisulfate 75 Mg Tablet, 75 MG PO DAILY Hold until scopes done on 05/13/21 Prescribed by: GLENROY MAXWELL on 05/08/21 1104 Furosemide 20 Mg Tablet, 20 MG PO DAILY Prescribed by: SUSAN LIM on 05/08/21 1259 Guaifenesin 1,200 Mg Tab.er.12h, 1,200 MG PO Q12H PRN for CONGESTION, (Reported) Isosorbide Mononitrate 30 Mg Tab.er.24h, 30 MG PO DAILY, (Reported) Losartan Potassium 100 Mg Tablet, 100 MG PO DAILY, (Reported) Multivitamin/Iron/Folic Acid 1 Each Tablet, 1 EACH PO DAILY, (Reported) Nitroglycerin 0.4 Mg Tab.subl, 0.4 MG SL UD PRN for CHEST PAIN (ANGINA), (Reported) Pantoprazole Sodium 40 Mg Tablet.dr, 40 MG PO DAILY Prescribed by: GLENROY MAXWELL on 05/08/21 1104 Potassium Chloride 20 Meq Tab.er.prt, 10 MEQ PO DAILY@0700 Prescribed by: SUSAN LIM on 05/08/21 1259 Potassium Chloride 10 Meq Tablet.er, 10 MEQ PO DAILY Prescribed by: SUSAN LIM on 05/08/21 1259 Sennosides 8.6 Mg Tablet, 8.6 MG PO QID PRN for CONSTIPATION-5TH LINE, (Reported) Sucralfate 1 Gm Tablet, 1 GM PO ACHS Prescribed by: GLENROY MAXWELL on 05/08/21 1104 Patient Home Medication List Home Medication List Reviewed: Yes Review of Systems Review of Systems Constitutional: see HPI EENTM: no symptoms reported Respiratory: see HPI Cardiovascular: No chest pain Gastrointestinal: other (Dark-colored stools) Genitourinary: decreased output; No dysuria Musculoskeletal: no symptoms reported Skin: no symptoms reported Psychiatric/Neurological: Anxiety, Weakness (Generalized) Past Sehkgqb-Tlmarn-Xbqwyh Hx Patient Social History Tobacco Use?: No Substance use?: No Alcohol Use?: No Pt feels they are or have been: No Immunizations Up To Date Tetanus Booster (TDap): Unknown Seasonal Allergies Seasonal Allergies: No Past Medical History Surgeries: Yes (CARDIAC CATH--STENTS X 2; CERVICAL CONIZATION) Gallbladder Respiratory: Yes COPD Currently Using CPAP: No Cardiac: Yes Coronary Artery Disease, Heart Murmur, High Cholesterol, Hypertension Neurological: No Headaches /Migraines Reproductive Disorders: Yes (CERVICAL DYSPLASIA. 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 Genitourinary: Yes Kidney Infection Gastrointestinal: Yes Gastroesophageal Reflux Musculoskeletal: Yes (ARTHRITIS --KNEES, BACK) Arthritis, Chronic Back Pain Endocrine: No HEENT: Yes Cancer: No Psychosocial: No Integumentary: No Blood Disorders: Yes (ANEMIA --CURRENT PROBLEM STARTING 12/08/18) Family Medical History Heart Disease, Diabetes Physical Exam Vital Signs Vital Signs - First Documented 05/30/21 14:59 Temp 36.5 Pulse 68 Resp 18 B/P (MAP) 123/97 (106) Pulse Ox 90 O2 Delivery Nasal Cannula O2 Flow Rate 3.00 Capillary Refill : Less Than 3 Seconds Height, Weight, BMI Height: 5'6.00" Weight: 150lbs. 4.8oz. 68.600450av; 26.00 BMI Method:Stated General Appearance: Anxious, Chronically ill HEENT: PERRL/EOMI, Pharynx Normal Neck: Non Tender, Supple Respiratory: Chest Non Tender, No Accessory Muscle Use, No Respiratory Distress, Decreased Breath Sounds Cardiovascular: Regular Rate, Rhythm, Normal Peripheral Pulses Gastrointestinal: No Pulsatile Mass, Non Tender, Soft Extremity: Normal Capillary Refill, Non Tender, No Pedal Edema Neurologic/Psychiatric: Alert, Oriented x3, management intern II-XII Norm as Tested Skin: Warm/Dry, Pallor Progress/Results/Core Measures Suspected Sepsis SIRS Temperature: Pulse: 68 Respiratory Rate: 18 Laboratory Tests 05/30/21 15:00: White Blood Count 10.1 Blood Pressure 123 /97 Mean: 106 Laboratory Tests 05/30/21 15:00: Creatinine 1.25, INR Comment 1.0, Platelet Count 315, Total Bilirubin 1.1H Results/Orders Lab Results Laboratory Tests Test 05/30/21 15:00 05/30/21 17:01 Range/Units White Blood Count 10.1 4.3-11.0 10^3/uL Red Blood Count 2.99 L 4.35-5.85 10^6/uL Hemoglobin 7.0 L 11.5-16.0 G/DL Hematocrit 25 L 35-52 % Mean Corpuscular Volume 84 80-99 FL Mean Corpuscular Hemoglobin 23 L 25-34 PG Mean Corpuscular Hemoglobin Concent 28 L 32-36 G/DL Red Cell Distribution Width 17.2 H 10.0-14.5 % Platelet Count 315 130-400 10^3/uL Mean Platelet Volume 11.6 H 7.4-10.4 FL Immature Granulocyte % (Auto) 1 % Neutrophils (%) (Auto) 77 H 42-75 % Lymphocytes (%) (Auto) 14 12-44 % Monocytes (%) (Auto) 7 0-12 % Eosinophils (%) (Auto) 1 0-10 % Basophils (%) (Auto) 1 0-10 % Neutrophils # (Auto) 7.7 1.8-7.8 X 10^3 Lymphocytes # (Auto) 1.4 1.0-4.0 X 10^3 Monocytes # (Auto) 0.7 0.0-1.0 X 10^3 Eosinophils # (Auto) 0.1 0.0-0.3 10^3/uL Basophils # (Auto) 0.1 0.0-0.1 10^3/uL Immature Granulocyte # (Auto) 0.1 0.0-0.1 10^3/uL Prothrombin Time 13.4 12.2-14.7 SEC INR Comment 1.0 0.8-1.4 Activated Partial Thromboplast Time 28 24-35 SEC Sodium Level 140 135-145 MMOL/L Potassium Level 5.7 H 3.6-5.0 MMOL/L Chloride Level 105 98-107 MMOL/L Carbon Dioxide Level 18 L 21-32 MMOL/L Anion Gap 17 H 5-14 MMOL/L Blood Urea Nitrogen 22 H 7-18 MG/DL Creatinine 1.25 0.60-1.30 MG/DL Estimat Glomerular Filtration Rate 43 BUN/Creatinine Ratio 18 Glucose Level 142 H 70-105 MG/DL Calcium Level 9.7 8.5-10.1 MG/DL Corrected Calcium 9.7 8.5-10.1 MG/DL Magnesium Level 2.0 1.6-2.4 MG/DL Total Bilirubin 1.1 H 0.1-1.0 MG/DL Aspartate Amino Transf (AST/SGOT) 30 5-34 U/L Alanine Aminotransferase (ALT/SGPT) 14 0-55 U/L Alkaline Phosphatase 80 40-136 U/L Troponin I < 0.30 <0.30 NG/ML Pro-B-Type Natriuretic Peptide 53176.0 H <75.0 PG/ML Total Protein 6.2 L 6.4-8.2 GM/DL Albumin 4.0 3.2-4.5 GM/DL Urine Color YELLOW Urine Clarity SLIGHTLY CLOUDY Urine pH 6.0 5-9 Urine Specific [place] 1.015 L 1.016-1.022 Urine Protein NEGATIVE NEGATIVE Urine Glucose (UA) NEGATIVE NEGATIVE Urine Ketones NEGATIVE NEGATIVE Urine Nitrite NEGATIVE NEGATIVE Urine Bilirubin NEGATIVE NEGATIVE Urine Urobilinogen 1.0 < = 1.0 MG/DL Urine Leukocyte Esterase TRACE H NEGATIVE Urine RBC (Auto) TRACE-I NEGATIVE Urine RBC NONE /HPF Urine WBC 10-25 H /HPF Urine Squamous Epithelial Cells 10-25 H /HPF Urine Crystals NONE /LPF Urine Bacteria FEW H /HPF Urine Casts PRESENT /LPF Urine Coarse Granular Casts 2-5 H /LPF Urine Mucus NEGATIVE /LPF Urine Culture Indicated YES My Orders Orders - MICHAEL DIALLO MD Cbc With Automated Diff (05/30/21 15:08) Magnesium (05/30/21 15:08) Chest 1 View Ap/Pa Only (05/30/21 15:08) Ekg Tracing (05/30/21 15:08) Comprehensive Metabolic Panel (05/30/21 15:08) Protime With Inr (05/30/21 15:08) Partial Thromboplastin Time (05/30/21 15:08) O2 (05/30/21 15:08) Monitor-Rhythm Ecg Trace Only (05/30/21 15:08) Ed Iv/Invasive Line Start (05/30/21 15:08) Troponin I Fs (05/30/21 15:08) Probnp Fs (05/30/21 15:08) Ua Culture If Indicated (05/30/21 15:08) Furosemide Injection (Lasix Injection) (05/30/21 16:39) Rojo Cath (05/30/21 16:45) Urine Culture (05/30/21 17:01) Vital Signs/I&O 05/30/21 05/30/21 14:59 17:19 Temp 36.5 36.5 Pulse 68 72 Resp 18 18 B/P (MAP) 123/97 (106) 95/55 (106) Pulse Ox 90 93 O2 Delivery Nasal Cannula Nasal Cannula O2 Flow Rate 3.00 3.00 Capillary Refill : Less Than 3 Seconds Blood Pressure Mean: 106 Progress Note #1: Progress Note Obtain basic labs as well as electrocardiogram and chest x-ray. Progress Note #2: Progress Note Lab shows her hemoglobin is now down to 7. She was 8.6 earlier this week. She has increased effusion on the right side with possible infiltrate according to radiologist. She does not have an elevated white blood cell count or any increased cough. Her BUN and creatinine are slightly elevated compared to her baseline. Will discuss with Dr. Dolan for the [facility] service about admission for transfusion. Also treatment for her CHF. ECG Initial ECG Impression Date: May 30, 2021 Initial ECG Impression Time: 15:27 Initial ECG Rate: 61 Initial ECG Rhythm: Normal Sinus Initial ECG Comparisson: Unchanged Comment Normal sinus rhythm with a heart rate of 61 bpm. OK interval 174 ms. LVH with intraventricular conduction delay and repolarization changes. Baseline wander. QT interval 455 ms with a QTc interval 459 ms. Appears stable from prior tracings. No acute ST elevation. Diagnostic Imaging Diagonstic Imaging: Xray Plain Films/CT/US/NM/MRI: chest Comments NAME: ILIR HOOK [facility] REC#: [id number] PT STATUS: REG ER : 1955 PHYSICIAN: MICHAEL DIALLO MD ADMIT DATE: 05/30/21/ER FS Draft Date of Exam:05/30/21 CHEST 1 VIEW AP/PA ONLY INDICATION: Weakness. TIME OF EXAM: 3:09 p.m. COMPARISON: Correlation is made with prior chest from 05/06/2021. FINDINGS: Heart size is stable. There appears to be a small to moderate right pleural effusion with some associated infiltrate or atelectasis in the right base. Left lung appears clear. Mid and upper lung merrill are clear. There is no pneumothorax. IMPRESSION: Right basilar infiltrate/atelectasis and pleural effusion. Dictated on workstation # [id number] Dict: 05/30/21 1528 Trans: 05/30/21 1530 [facility] [id number] Interpreted by: TEE BURCIAGA MD Electronically signed by: Departure Communication (Admissions) Time/Spoke to Admitting Phy: 16:[address] Dolan for [facility] and he accepted patient for admission. She did request 40 mg of Lasix here in the ED and to have patient have a type and cross for 2 units with 1 unit transfused when available. Obtain a procalcitonin level. Impression Primary Impression: Blood loss anemia Additional Impressions: CHF exacerbation Qualified Codes: I50.9 - Heart failure, unspecified Hyperkalemia Disposition: 30 STILL A PATIENT Condition: Stable Admissions Decision to Admit Reason: Admit from ER (General) Decision to Admit/Date: May 30, 2021 Time/Decision to Admit Time: 16:39 Departure-Patient Inst. Referrals: NO,LOCAL PHYSICIAN (PCP) Primary Care Physician DOMINIC JONES APRN (Family) Primary Care Physician MICHAEL DIALLO MD May 30, 2021 15:26
--- NOTE | 2021-05-30 15:30 | Diagnostic Imaging Report ---
INDICATION: Weakness. TIME OF EXAM: 3:09 p.m. COMPARISON: Correlation is made with prior chest from 05/06/2021. FINDINGS: Heart size is stable. There appears to be a small to moderate right pleural effusion with some associated infiltrate or atelectasis in the right base. Left lung appears clear. Mid and upper lung merrill are clear. There is no pneumothorax. IMPRESSION: Right basilar infiltrate/atelectasis and pleural effusion. Dictated by: Dictated on workstation # [id number]
[2021-05-30 15:38] LABS: BILIRUBIN,TOTAL 1.1 MG/DL (0.1-1.0); CALCIUM 9.7 MG/DL (8.5-10.1); CREATININE SERUM 1.25 MG/DL (0.60-1.30); POTASSIUM 5.7 MMOL/L (3.6-5.0); TOTAL PROTEIN 6.2 GM/DL (6.4-8.2)
[2021-05-30] MEDS ORDERED: FUROSEMIDE 40 MG/4 ML INJ (LASIX) IVP STA (16:39)
[2021-05-30 17:09] LABS: BILIRUBIN,URINE NEGATIVE (NEGATIVE); CLARITY,URINE SLIGHTLY CLOUDY; COLOR,URINE YELLOW; GLUCOSE, URINE (UA) NEGATIVE (NEGATIVE); KETONES,URINE NEGATIVE (NEGATIVE); LEUKOCYTE ESTERASE ,URINE TRACE (NEGATIVE); NITRITE,URINE NEGATIVE (NEGATIVE); PROTEIN,URINE NEGATIVE (NEGATIVE)
[2021-05-30 17:10] LABS: BACTERIA,URINE FEW /HPF
[2021-05-30] MEDS ORDERED: NS IV 500 ML 500 ML IV SCH (18:30)
[2021-05-30] MEDS ORDERED: ACETAMINOPHEN 325 MG TABLET PO PRN (18:30)
[2021-05-30] MEDS ORDERED: CATHETER FLUSH 10 ML SYR IV PRN (18:30)
[2021-05-30] MEDS ORDERED: ONDANSETRON 4 MG/2 ML (SDV) Z0FRAN IV PRN (18:30)
[2021-05-30 19:47] VITALS: BP 123/97
[2021-05-30 20:00] VITALS: BP 111/58
[2021-05-30] MEDS ORDERED: RT-ALBUTEROL/IPRATROPIUM 3 ML (DUONEB) VIAL INH PRN (20:00)
[2021-05-30] MEDS: RT-ALBUTEROL/IPRATROPIUM 3 ML (DUONEB) VIAL INH SCH (20:08)
[2021-05-30] MEDS: CATHETER FLUSH 10 ML SYR IV SCH (21:45)
[2021-05-31] VITALS (13 sets, daily range): BP systolic 101–150; BP diastolic 55–92
[2021-05-31] MEDS: CATHETER FLUSH 10 ML SYR IV SCH ×3 (06:11→20:10)
[2021-05-31 06:36] LABS: BASOPHILS # (AUTO) 0.1 10^3/uL (0.0-0.1); BASOPHILS % (AUTO) 1 % (0-10); EOSINOPHILS # (AUTO) 0.1 10^3/uL (0.0-0.3); EOSINOPHILS % (AUTO) 0 % (0-10); HEMATOCRIT 30 % (35-52); HEMOGLOBIN 8.6 g/dL (11.5-16.0); LYMPHOCYTES # (AUTO) 2.2 10^3/uL (1.0-4.0); LYMPHOCYTES % (AUTO) 19 % (12-44); MEAN CORPUSCULAR HEMOGLOBIN 25 pg (25-34); MEAN CORPUSCULAR HGB CONC 29 g/dL (32-36); MEAN CORPUSCULAR VOLUME 85 fL (80-99); MEAN PLATELET VOLUME 11.6 fL (9.0-12.2); MONOCYTES % (AUTO) 9 % (0-12); NEUTROPHILS # (AUTO) 8.1 10^3/uL (1.8-7.8); NEUTROPHILS % (AUTO) 71 % (42-75); PLATELET COUNT 308 10^3/uL (130-400); WHITE BLOOD COUNT 11.5 10^3/uL (4.3-11.0)
[2021-05-31 06:41] LABS: ALBUMIN 3.9 GM/DL (3.2-4.5)
[2021-05-31 06:42] LABS: POTASSIUM 4.4 MMOL/L (3.6-5.0)
[2021-05-31 06:43] LABS: CALCIUM 9.4 MG/DL (8.5-10.1)
[2021-05-31 06:44] LABS: TOTAL PROTEIN 6.4 GM/DL (6.4-8.2)
[2021-05-31 06:46] LABS: BILIRUBIN,TOTAL 1.4 MG/DL (0.1-1.0)
[2021-05-31 06:48] LABS: CREATININE SERUM 1.65 MG/DL (0.60-1.30)
[2021-05-31] MEDS: RT-ALBUTEROL/IPRATROPIUM 3 ML (DUONEB) VIAL INH SCH ×2 (06:59→21:48)
[2021-05-31] MEDS ORDERED: FUROSEMIDE 40 MG/4 ML INJ (LASIX) IVP ONE (08:00)
[2021-05-31] MEDS ORDERED: NS IV 500 ML 500 ML IV SCH (08:00)
--- NOTE | 2021-05-31 11:53 | History & Physical-Hospitalist ---
History of Present Illness HPI/Chief Complaint 66-year-old female presenting by private vehicle with complaints of generalized weakness and fatigue. She states that she had labs drawn with her primary care provider yesterday and was told that her hemoglobin was 7.5. Today she was feeling weaker and was advised to come to the emergency department. She recently had a GI bleed with scopes done at [facility] in [place]. She had recent transfusion due to anemia. She also recently was treated and evaluated for congestive heart failure and started on oxygen in April. She denies any fever but has been having chills. She has a chronic mild cough. She denies any pain with urination or diarrhea. She is anxious and worried about feeling so weak. Associated Systoms: No Chest Pain; Cough (Mild intermittent); No Diaphoresis, No Fever/Chills (No fever but is having chills), No Headaches; Malaise; No Nausea/Vomiting, No Rash, No Seizure; Shortness of Air (Chronic); No Syncope; Weakness (Generalized Upon my arrival the patient while still fatigue stated that she felt better. She has had several melanotic stools since her arrival the last 1 was an hour ago. She denies bright red blood per rectum and has had no abdominal pain. In questioning her she has continued to take a baby aspirin daily due to her history of heart disease. 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 Fabian. She has had intermittent bleeding with anemia requiring transfusions over the past several years. CT scan of the abdomen and pelvis in the emergency room was unremarkable. Date Seen 05/31/21 Time Seen by a Provider: 06:30 Attending Physician Geni Bardales MD, Amanda S Aprn Referring Physician Date of Admission May 30, 2021 at 18:00 Home Medications & Allergies Home Medications Reviewed patient Home Medication Reconciliation performed by pharmacy medication reconciliations die cast technician and/or nursing. Patients Allergies have been reviewed. Allergies Allergies Coded Allergies No Known Drug Allergies (Verified05/13/21) Past Szmripn-Rqybrc-Jdiohv Hx Patient Social History Tobacco Use?: No Smoking Status: Former Smoker Use of E-Cig and/or Vaping dev: No Substance use?: No Alcohol Use?: No Pt feels they are or have been: No Immunizations Up To Date Date of Influenza Vaccine: Jul 23, 2020 Tetanus Booster (TDap): Unknown Date of Pneumonia Vaccine: Sep 22, 2018 Seasonal Allergies Seasonal Allergies: No Current Status status: No status: No Advance Directives: Yes Advance Directive Location: Unable to obtain copy Communicates: Verbally Primary Language: British Preferred Spoken Language: British Is interpretation needed?: No Sensory deficits: Vision impairment Implanted or Applied Medical D: None Past Medical History Surgeries: Gallbladder COPD Currently Using CPAP: No Coronary Artery Disease, Heart Murmur, High Cholesterol, Hypertension 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 4.8oz. 68.422082pc; 24.71 BMI Method:Stated General Appearance: No Apparent Distress, Chronically ill HEENT: Pale Conjunctivae (L), Pale Conjunctivae (R) Respiratory: Chest Non Tender, Lungs Clear, Normal Breath Sounds, No Accessory Muscle Use, No Respiratory Distress Cardiovascular: Regular Rate, Rhythm, No Edema, No Gallop, No JVD, No Murmur, Normal Peripheral Pulses Gastrointestinal: Normal Bowel Sounds, No Organomegaly, No Pulsatile Mass, Non Tender, Soft Extremity: Normal Capillary Refill, Normal Inspection, Normal Range of Motion, Non Tender, No Calf Tenderness, No Pedal Edema Results Results/Procedures Labs Laboratory Tests 05/30/21 15:00 05/31/21 06:20 Patient resulted labs reviewed. Assessment/Plan Admission Diagnosis 1. Significant anemia secondary to GI bleed. Suspect the etiology very well may be angiodysplasia from the small intestine considering endoscopic findings recently done per HPI notation. This is currently being aggravated by aspirin therapy and discussed that at this time with life-threatening GI bleed the risk of aspirin therapy significantly exceeds its benefit so we will have requested the patient discontinue. If this does not resolve bleeding will need to look into capsule endoscopy for further evaluation. Hemoglobin level is up to 8.8 after 1 unit however she is continuing to bleed so we will give 1 more unit considering that she is going to have poor reserve capacity for blood production. 2. Acute exacerbation of ischemic heart disease with known systolic heart failure and likely component of diastolic as well due to her underlying anemia this appears to be compensating after 1 dose of IV Lasix. We will give another dose of IV Lasix now considering that we will be giving her 1 more unit of packed cells. Repeat H&H 2 hours after this unit and again in the morning. Admission Status: Inpatient Order (span 2 midnights) Reason for Inpatient Admission: See admission diagnosis GENI BARDALES MD May 31, 2021 11:53
[2021-05-31 14:51] LABS: HEMOGLOBIN 10.8 g/dL (11.5-16.0)
[2021-06-01 04:06] VITALS: BP 136/80
[2021-06-01] MEDS: CATHETER FLUSH 10 ML SYR IV SCH ×3 (06:34→22:44)
[2021-06-01 06:43] LABS: BASOPHILS # (AUTO) 0.1 10^3/uL (0.0-0.1); BASOPHILS % (AUTO) 1 % (0-10); EOSINOPHILS # (AUTO) 0.2 10^3/uL (0.0-0.3); EOSINOPHILS % (AUTO) 2 % (0-10); HEMATOCRIT 36 % (35-52); HEMOGLOBIN 10.7 g/dL (11.5-16.0); LYMPHOCYTES # (AUTO) 2.2 10^3/uL (1.0-4.0); LYMPHOCYTES % (AUTO) 19 % (12-44); MEAN CORPUSCULAR HEMOGLOBIN 25 pg (25-34); MEAN CORPUSCULAR HGB CONC 30 g/dL (32-36); MEAN CORPUSCULAR VOLUME 83 fL (80-99); MEAN PLATELET VOLUME 11.2 fL (9.0-12.2); MONOCYTES # (AUTO) 0.9 10^3/uL (0.0-1.0); MONOCYTES % (AUTO) 7 % (0-12); NEUTROPHILS # (AUTO) 8.3 10^3/uL (1.8-7.8); NEUTROPHILS % (AUTO) 71 % (42-75); PLATELET COUNT 280 10^3/uL (130-400); WHITE BLOOD COUNT 11.7 10^3/uL (4.3-11.0)
[2021-06-01 06:48] LABS: POTASSIUM 3.7 MMOL/L (3.6-5.0)
[2021-06-01 06:49] LABS: CALCIUM 9.3 MG/DL (8.5-10.1)
[2021-06-01 06:53] LABS: CREATININE SERUM 1.32 MG/DL (0.60-1.30)
[2021-06-01] MEDS: RT-ALBUTEROL/IPRATROPIUM 3 ML (DUONEB) VIAL INH SCH ×2 (07:26→20:41)
[2021-06-01 08:02] VITALS: BP 127/79
[2021-06-01 12:00] VITALS: BP 162/76
--- NOTE | 2021-06-01 12:14 | Progress Note - Hospitalist ---
Subjective HPI/CC On Admission Date Seen by Provider: Jun 01, 2021 Time Seen by Provider: 10:00 66-year-old female presenting by private vehicle with complaints of generalized weakness and fatigue. She states that she had labs drawn with her primary care provider yesterday and was told that her hemoglobin was 7.5. Today she was f eeling weaker and was advised to come to the emergency department. She recently had a GI bleed with scopes done at [facility] in [place]. She had recent transfusion due to anemia. She also recently was treated and evaluated for congestive heart failure and started on oxygen in April. She denies any fever but has been having chills. She has a chronic mild cough. She denies any pain with urination or diarrhea. She is anxious and worried about feeling so weak. Associated Systoms: No Chest Pain; Cough (Mild intermittent); No Diaphoresis, No Fever/Chills (No fever but is having chills), No Headaches; Malaise; No Nausea/Vomiting, No Rash, No Seizure; Shortness of Air (Chronic); No Syncope; Weakness (Generalized Upon my arrival the patient while still fatigue stated that she felt better. She has had several melanotic stools since her arrival the last 1 was an hour ago. She denies bright red blood per rectum and has had no abdominal pain. In questioning her she has continued to take a baby aspirin daily due to her history of heart disease. 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 Fabian. She has had intermittent bleeding with anemia requiring transfusions over the past several years. CT scan of the abdomen and pelvis in the emergency room was unremarkable. Subjective/Events-last exam Patient feeling better eating little bit more. Staff report that she is unstable on her feet and needs standby assistance even with the use of her walker making her significant fall risk and frail elderly white female with reported known osteoporosis. Bowels have not moved this morning also an improvement. Objective Exam Vital Signs Vital Signs Date Time Temp Pulse Resp B/P (MAP) Pulse Ox O2 Delivery O2 Flow Rate FiO2 06/01/21 12:00 36.8 81 20 162/76 (104) 94 Nasal Cannula 5.00 Capillary Refill : Less Than 3 Seconds General Appearance: No Apparent Distress, Chronically ill Respiratory: Chest Non Tender, Lungs Clear, Normal Breath Sounds, No Accessory Muscle Use, No Respiratory Distress Cardiovascular: Regular Rate, Rhythm, No Edema, No Gallop, Systolic Murmur (2/6 heard best over the aortic outflow tract) Gastrointestinal: Normal Bowel Sounds, No Organomegaly, No Pulsatile Mass, Non Tender, Soft Results/Procedures Lab Laboratory Tests 05/31/21 14:45 06/01/21 06:30 Patient resulted labs reviewed. Assessment/Plan Assessment and Plan Assess & Plan/Chief Complaint 1. Significant anemia secondary to GI bleed. Suspect the etiology very well may be angiodysplasia from the small intestine considering endoscopic findings recently done per HPI notation. This is currently being aggravated by aspirin therapy and discussed that at this time with life-threatening GI bleed the risk of aspirin therapy significantly exceeds its benefit so we will have requested the patient discontinue. If this does not resolve bleeding will need to look in to capsule endoscopy for further evaluation. Hemoglobin level is up to The mid 10 range after a total of 2 units with decrease in melanotic stools indicative of no active ongoing bleeding. Patient still a significant fall risk see HPI we will consult physical therapy and may need short-term swing bed status until she regains strength continue to hold aspirin.. 2. Acute exacerbation of ischemic heart disease with known systolic heart failure and likely component of diastolic as well Appears to be compensating we will give another IV dose of Lasix. Blood pressure is up to 160 systolic at noon so will resume losartan. We will also be resuming atorvastatin at at bedtime. GENI BARDALES MD Jun 01, 2021 12:13
[2021-06-01] MEDS ORDERED: FUROSEMIDE 40 MG/4 ML INJ (LASIX) IVP ONE (12:30)
[2021-06-01] MEDS ORDERED: LOSARTAN 100 MG (COZAAR) TABLET PO ONE (12:30)
[2021-06-01 15:42] VITALS: BP 121/77
[2021-06-01 20:36] VITALS: BP 112/68
[2021-06-02] VITALS (7 sets, daily range): BP systolic 97–120; BP diastolic 53–69
[2021-06-02] MEDS: CATHETER FLUSH 10 ML SYR IV SCH (06:09)
[2021-06-02 06:11] LABS: BASOPHILS # (AUTO) 0.1 10^3/uL (0.0-0.1); BASOPHILS % (AUTO) 1 % (0-10); EOSINOPHILS # (AUTO) 0.3 10^3/uL (0.0-0.3); EOSINOPHILS % (AUTO) 2 % (0-10); HEMATOCRIT 35 % (35-52); HEMOGLOBIN 10.3 g/dL (11.5-16.0); LYMPHOCYTES # (AUTO) 1.8 10^3/uL (1.0-4.0); LYMPHOCYTES % (AUTO) 17 % (12-44); MEAN CORPUSCULAR HEMOGLOBIN 25 pg (25-34); MEAN CORPUSCULAR HGB CONC 30 g/dL (32-36); MEAN CORPUSCULAR VOLUME 84 fL (80-99); MEAN PLATELET VOLUME 11.5 fL (9.0-12.2); MONOCYTES # (AUTO) 1.1 10^3/uL (0.0-1.0); MONOCYTES % (AUTO) 11 % (0-12); NEUTROPHILS % (AUTO) 69 % (42-75); PLATELET COUNT 242 10^3/uL (130-400); WHITE BLOOD COUNT 10.2 10^3/uL (4.3-11.0)
[2021-06-02 06:25] LABS: POTASSIUM 3.3 MMOL/L (3.6-5.0)
[2021-06-02 06:26] LABS: CALCIUM 9.1 MG/DL (8.5-10.1)
[2021-06-02 06:31] LABS: CREATININE SERUM 1.27 MG/DL (0.60-1.30)
[2021-06-02 06:57] LABS: ANISOCYTOSIS SLIGHT; EOSINOPHILS % (MANUAL) 4 %; LYMPHOCYTES % (MANUAL) 21 %; MONOCYTES % (MANUAL) 5 %; NEUTROPHILS % (MANUAL) 70 %; POIKILOCYTOSIS SLIGHT
[2021-06-02] MEDS: RT-ALBUTEROL/IPRATROPIUM 3 ML (DUONEB) VIAL INH SCH (07:13)
[2021-06-02] MEDS ORDERED: FURO20TA4 PO (09:00)
[2021-06-02] MEDS ORDERED: POTA10TA36 PO (09:00)
[2021-06-02] MEDS ORDERED: CLOP75TA28 PO (09:00)
[2021-06-02] MEDS ORDERED: LOSARTAN 100 MG (COZAAR) TABLET PO SCH (09:00)
[2021-06-02] MEDS ORDERED: SUCR1TAB PO (09:00)
[2021-06-02] MEDS ORDERED: PANT40TA2 PO (09:00)
[2021-06-02] MEDS ORDERED: ACET-2267 PO (09:03)
--- NOTE | 2021-06-02 11:17 | Physical Therapy Evaluation ---
PT Evaluation-General Medical Diagnosis Admission Date May 30, 2021 at 18:00 Medical Diagnosis: anemia/CHF Onset Date: May 30, 2021 Therapy Diagnosis Therapy Diagnosis: debility/weakness Height/Weight Height (Feet): 5 Height (Inches): 6.00 Weight (Pounds): 150 Weight (Ounces): 4.8 Precautions Precautions/Isolations: Fall Prevention, Standard Precautions Referral Physician: Kelsi Reason for Referral: Evaluation/Treatment Medical History Pertinent Medical History: CAD, COPD, Heart Failure, HTN Current History ER secondary to weakness and fatigue Reviewed History: Yes Social History Home: Single Level Current Living Status: Spouse Prior Prior Level of Function SCALE: Activities may be completed with or without assistive devices. 4-Zhwkufkwij-yrsavgz completes the activity by him/herself with no assistance from a helper. 5-Set-up or Clean-up Assistance-helper sets up or cleans up; patient completes activity. [place] assists only prior to or following the activity. 4-Supervision or Touching Assistance-helper provides verbal cues and/or touching/steadying and/or contact guard assistance as patient completes activity. Assistance may be provided throughout the activity or intermittently. 3-Partial/Moderate Assistance-helper does LESS THAN HALF the effort. [place] lifts, holds or supports trunk or limbs, but provides less than half the effort. 2-Substantial/Maximal Assistance-helper does MORE THAN HALF the effort. [place] lifts or holds trunk or limbs and provides more than half the effort. 0-Iipknfgib-mfgrin does ALL the effort. Patient does none of the effort to complete the activity. Or, the assistance of 2 or more helpers is required for the patient to complete the activity. If activity was not attempted, code reason: 7-Patient Refused. 9-Not Applicable-not attempted and the patient did not perform the activity before the current illness, exacerbation or injury. 10-Not Attempted due to Environmental Limitations-(lack of equipment, weather restraints, etc.). 88-Not Attempted due to Medical Conditions or Safety Concerns. Bed Mobility: 6 Transfers (B,C,W/C): 6 Gait: 6 Indoor Mobility (Ambulation): Independent Stairs: Independent Prior Devices Use: Walker (4WW) PT Evaluation-Current Subjective Patient agrees to PT and states she hopes to go home today. Objective Patient Orientation: Normal For Age Attachments: Oxygen ROM/Strength ROM Lower Extremities bilateral LE WFL Strength Lower Extremities 4-/5 grossly bilateral LE Integumentary/Posture Integumentary refer to nursing notes Bowel Incontinence: No Bladder Incontinence: Rojo Cath Posture WFL Neuromuscular (Tone, Coordination, Reflexes) grossly intact Sensory Vision: Functional Hearing: Functional Transfers Sit to Lying (QC): 6 Lying to Sitting/Side of Bed(Q: 4 Sit to Stand (QC): 4 Gait Does the Patient Walk?: Yes Mode of Locomotion: Walk Anticipated Mode of Locomotion: Walk Walk 10 feet (QC): 4 (SBA) Walk 50 ft with 2 Turns(QC): 4 (SBA) Walk 150 ft (QC): 4 (SBA) Distance: 200' Gait Assistive Device: FWW Comments/Gait Description slightly unsteady with self correct Balance Sitting Static: Normal Sitting Dynamic: Normal Standing Static: Fair Standing Dynamic: Fair Picking up an Object (QC): 6 Assessment/Needs 66 y.o. female, will be seen short term by skilled PT to ensure safe return to home by addressing functional strength and mobility. Rehab Potential: Fair PT Blood Bank Laboratory Professional Goals Skilled Nursing Goals PT Blood Bank Laboratory Professional Goals Time Frame: Jun 06, 2021 Roll Left & Right (QC): 6 Sit to Lying (QC): 6 Lying-Sitting on Side/Bed(QC): 6 Sit to Stand (QC): 6 Chair/Bqc-fy-Fegdp Xfer(QC): 6 Toilet Transfer (QC): 6 Walk 10 feet (QC): 6 Walk 50ft with 2 Turns (QC): 6 Walk 150 ft (QC): 6 PT Plan Problem List Problem List: Activity Tolerance, Functional Strength, Balance, Gait Treatment/Plan Treatment Plan: Continue Plan of Care Treatment Plan: Bed Mobility, Education, Functional Activity Kwame, Functional Strength, Gait, Safety, Therapeutic Exercise, Transfers Treatment Duration: Jun 06, 2021 Frequency: 5 times per week Estimated Hrs Per Day: .25 hour per day Patient and/or Family Agrees t: Yes Discharge Recommendations Therapy Discharge Recommendati: Home & Family Time/GCodes Time In: 1037 Time Out: 1047 Total Billed Treatment Time: 10 Total Billed Treatment 1 visit EVModC 10 min MAIKEL LEDEZMA PT Jun 02, 2021 11:17
[2021-06-02] MEDS ORDERED: BUDE9TAB2 PO (12:58)
--- NOTE | 2021-06-02 13:10 | Discharge Summary ---
Discharge Summary Reconcile Patient Problems Problems Reviewed?: Yes Instructions for Patient Via [facility], Assessment/Instructions Take medications as prescribed. Follow up with your PCP. Have labs drawn to check your hemoglobin on or Wednesday. Begin taking Budesonide for collagenous colitis. Return with worsening bleeding, lightheadedness, or if you feel like you are getting worse. Physician to follow Patient: Shannan MICHEL Discharge Diet for Home: No Restrictions Hospital Course Date of Admission: May 30, 2021 at 18:00 Admission Diagnosis : Acute on chronic blood loss anemia Family Physician/Provider: Nereida Campbell Aprn Date of Discharge: 06/02/21 Discharge Diagnosis: Collagenous colitis, acute on chronic blood loss anemia Hospital Course: Mikki Mcwilliams is a 66 year old female with HTN, HLD, CHF, CAD, who presented with anemia due to recurrent GI bleeding. She recently underwent endoscopy which revealed an AVM in her duodenum. She was discharged home at that time, but her hemoglobin has continued to decrease. She had been having black, tarry stools prior to admission. She was transfused 2 units PRBC and her hemoglobin remained stable. Her melena resolved. Her aspirin was held. She was recently found to have severe coronary artery disease needing angioplasty, but due to her GI bleeding, this was deferred. She was started on aspirin and plavix. She will continue on plavix, but her aspirin was held at the time of discharge due to her recurrent bleeding. Her biopsies from her previous endoscopy showed collagenous colitis, a type of microscopic colitis/inflammatory bowel disease. She was started on budesonide and was given a two month supply. She should follow up with her primary care provider, Nereida Campbell APRN. She was discharged home in stable condition. She was set up with home health care. Labs and Pending Lab Test: Laboratory Tests 06/02/21 05:55: White Blood Count 10.2, Red Blood Count 4.12, Hemoglobin 10.3L, Hematocrit 35, Mean Corpuscular Volume 84, Mean Corpuscular Hemoglobin 25, Mean Corpuscular Hemoglobin Concent 30L, Red Cell Distribution Width 16.7H, Platelet Count 242, Mean Platelet Volume 11.5, Immature Granulocyte % (Auto) 1, Neutrophils (%) (Auto) 69, Lymphocytes (%) (Auto) 17, Monocytes (%) (Auto) 11, Eosinophils (%) (Auto) 2, Basophils (%) (Auto) 1, Neutrophils # (Auto) 7.0, Lymphocytes # (Auto) 1.8, Monocytes # (Auto) 1.1H, Eosinophils # (Auto) 0.3, Basophils # (Auto) 0.1, Immature Granulocyte # (Auto) 0.1, Neutrophils % (Manual) 70, Lymphocytes % (Manual) 21, Monocytes % (Manual) 5, Eosinophils % (Manual) 4, Poikilocytosis SLIGHT, Anisocytosis SLIGHT, Sodium Level 139, Potassium Level 3.3L, Chloride Level 101, Carbon Dioxide Level 24, Anion Gap 14, Blood Urea Nitrogen 26H, Creatinine 1.27, Estimat Glomerular Filtration Rate 42, BUN/Creatinine Ratio 20, Glucose Level 95, Calcium Level 9.1 Microbiology 05/30/21 Urine Culture - Preliminary, Resulted Escherichia coli Gram Pos Mixed Bacterial Shirin Home Meds Active Budesonide ER (Budesonide) 9 Mg Tabdr...er 9 Mg PO DAILY 60 Days Reported Tylenol Extra Strength (Acetaminophen) 500 Mg Tablet 1,000 Mg PO Q8H PRN TAKES 2 (500MG) TABLETS Clopidogrel (Clopidogrel Bisulfate) 75 Mg Tablet 75 Mg PO DAILY Protonix (Pantoprazole Sodium) 40 Mg Tablet.dr 40 Mg PO DAILY Potassium Chloride 10 Meq Tab.er.prt 10 Meq PO DAILY Furosemide 20 Mg Tablet 20 Mg PO DAILY Sucralfate 1 Gm Tablet 1 Gm PO ACHS Mucinex (Guaifenesin) 1,200 Mg Tab.er.12h 1,200 Mg PO Q12H PRN Vitamin D3 (Cholecalciferol (Vitamin D3)) 25 Mcg Capsule 25 Mcg PO DAILY Senna (Sennosides) 8.6 Mg Tablet 8.6 Mg PO QID PRN Nitroglycerin 0.4 Mg Tab.subl 0.4 Mg SL UD PRN Carvedilol 6.25 Mg Tablet 6.25 Mg PO BID Centrum Adults Tablet (Multivitamin/Iron/Folic Acid) 1 Each Tablet 1 Each PO DAILY Aspirin 81 Mg Tab.chew 81 Mg PO DAILY Vitamin C (Ascorbate Calcium) 500 Mg Tablet 500 Mg PO DAILY Losartan Potassium 100 Mg Tablet 100 Mg PO DAILY Isosorbide Mononitrate ER (Isosorbide Mononitrate) 30 Mg Tab.er.24h 30 Mg PO DAILY Atorvastatin Calcium 80 Mg Tablet 80 Mg PO DAILY Patient Allergies: Coded Allergies: No Known Drug Allergies (Verified , 05/13/21) Height (Feet): 5 Height (Inches): 6.00 Weight (Pounds): 150 Weight (Ounces): 4.8 Home Health Need/Face to Face Date of Face to Face: Jun 02, 2021 Clinical Findings: Generalized weakness and fatigue, Instability, Muscle weakness, Shortness of breath, Unsteady gait I have seen Pt dvwa-is-ichi: Yes Discharged To: Home Diagnosis/Conditions: Collagenous colitis Anemia GI bleeding Debility Problems/Diagnosis/Condition: (1) Collagenous colitis (2) Anemia (3) COPD (4) CAD (coronary artery disease) Patient is Homebound due to: Rob fall risk due to instabilty, Muscle weakness, Shortness of breath/distress Homebound Status Due to the above stated illness, injury or surgical procedure (medical condition or diagnosis) and associated clinical findings, the patient is homebound because of his/her inability to leave home except with aid of a supportive device and/or person AND leaving the home requires a considerable and taxing effort or is medically contraindicated. Pt req the following assistanc: Aid of another person Home Health Nursing Orders Home Health Services Order: Nursing Services, Reed Fixer-Evaluate & Treat, Physical Therapy-Evaluate & Treat Home Health Infusion Therapy Line Start Date: May 30, 2021 Therapy Orders Therapy Orders: OT (must have SN or PT order), Physical Therapy Therapy Specific Orders: Eval assistive deivces, Teach enviro modifications/safety, Gait training, Increase strength/endurance Certify Stmt I certify that this patient is under my care and that I, a nurse practitioner or a physician; a veterinary assistant working with me, had a face to face encounter that - meets the physician face to face encounter requirements with this patient as dated. Discharge Physical Exam General: Alert, Oriented X3, Cooperative, No Acute Distress, Other (wearing nasal cannula) HEENT: Atraumatic, EOMI, Mucous Memb Moist/[place] Lungs: Clear to Auscultation, Normal Air Movement Heart: Regular Rate, Normal S1, Normal S2, No Murmurs Abdomen: Normal Bowel Sounds, Soft, No Tenderness Extremities: No Edema, No Tenderness/Swelling Skin: No Rashes, No Significant Lesion Neuro: Normal Speech, Normal Tone Psych/Mental Status: Mental Status NL, Mood NL KIMI CLARK MD Jun 02, 2021 13:04
--- NOTE | 2021-06-02 14:19 | Occ Therapy Progress Note ---
Therapy Progress Note Pt present in bed. Pt agrees to OT eval/ treat, however, upon further discussion full evaluation not completed as pt expresses she is at PLOF and is increasing in abilities. Pt is d/c'ing today per pt and family, will be having HHOT at home for continued adaptations, UE strengthening, ADL training, and AE. Pt and family deny questions. D/c at this time. 1, Visit ([id number]) ESTHER LOZA OTR Jun 02, 2021 14:19
== END 2021-06-02 16:35 | disposition home health service (06) | DRG 391 ==
LOC: EDUNIT# 14:23 → ER FS 14:24 → CSD 18:00 → 4TH 05-31 19:28
PROVIDERS: ADMIT Internal Medicine; ATTEND Internal Medicine
DX: K52.831 Collagenous colitis (principal); I50.43 Acute on chronic combined systolic (congestive) and diastolic (congestive) heart failure; K92.1 Melena; D62 Acute posthemorrhagic anemia; Q27.33 Arteriovenous malformation of digestive system vessel; I11.0 Hypertensive heart disease with heart failure; I25.10 Atherosclerotic heart disease of native coronary artery without angina pectoris; J44.9 Chronic obstructive pulmonary disease, unspecified; E78.00 Pure hypercholesterolemia, unspecified; E78.5 Hyperlipidemia, unspecified; K21.9 Gastro-esophageal reflux disease without esophagitis; M17.0 Bilateral primary osteoarthritis of knee; M47.9 Spondylosis, unspecified; E87.5 Hyperkalemia; H54.7 Unspecified visual loss; R01.1 Cardiac murmur, unspecified; M81.0 Age-related osteoporosis without current pathological fracture; Z87.891 Personal history of nicotine dependence; Z79.82 Long term (current) use of aspirin; Z82.49 Family history of ischemic heart disease and other diseases of the circulatory system
CPT/HCPCS: 36415; 51702; 71045; 80048; 80053; 81000; 83735; 83880; 84145; 84484; 85007; 85014; 85018; 85025; 85027; 85610; 85730; 86850; 86900; 86901; 86920; 87088; 87186; 93005; 93041; 94640

== ENCOUNTER 2021-07-23 14:00 | Day surgery (SDC) | payer MEDICARE, MEDICAID ==
[2021-07-23] VITALS (8 sets, daily range): BP systolic 150–175; BP diastolic 65–99
[~2021-07-23] VITALS: Ht 167 cm; Wt 67.0 kg
--- OUTSIDE RECORDS SUMMARY | 2021-07-23 11:05 | XMS REPORT | Clinical Summary ---
Author Author [facility] Organization [facility] Address Unknown Phone Unavailable Care Team Providers Care Line Driver Name Role Phone No Pcp, Na PCP Unavailable Source Comments Some departments are not documenting in the electronic medical record. If you d o not see the information that you expected, contact Release of Information in [facility] [address] [employer] Organization Information Management department at [phone] for further assistan ce in locating additional records.[facility] Allergies No Known Active Allergies Medications End Date Status Medication Sig Dispensed Refills Start Date Active amLODIPine (NORVASC) 10 Take 10 mg by 0 mg tablet mouth daily. Active aspirin EC 81 mg tablet Take 81 mg by 0 mouth daily. Take with food. Active acetaminophen (TYLENOL) Take 325 mg 0 325 mg tablet by mouth every 4 hours as needed for Pain. Active calcium carbonate (TUMS) Chew 1 Tab by 30 Tab 4 500 mg (200 mg elemental mouth daily. 6 calcium) chewable tablet Active guaiFENesin LA (MUCINEX) Take 2 Tabs 180 Tab 0 1 600 mg tablet by mouth 6 twice daily. Additional Information Patient taking differently: 600 mg Oral DAILY, Informant: Self, Reported on 05/07/2019 Active senna (SENOKOT) 8.6 mg Take 1 Tab by 90 Tab 3 1 tablet mouth daily. 6 Active vitamins, multi Take 1 Tab by 30 Tab 3 09/21/20 1 w/minerals 27-0.4 mg tab mouth daily. 6 Active zinc sulfate 220 mg (50 Take 1 Cap by 60 Cap 4 mg elemental zinc) mouth daily. 6 capsule Active nitroglycerin (NITROSTAT) Place 1 Tab 25 Tab 3 0.4 mg tablet under tongue 6 every 5 minutes as needed for Chest Pain. Max of 3 tablets, call [address]. [address] Take 1 Tab by 180 Tab 3 10/30/20 1 (PROTONIX) 40 mg tablet mouth twice 6 daily. Active albuterol (PROAIR HFA, Inhale two 3 Inhaler 3 VENTOLIN HFA, OR puffs by 9 PROVENTIL HFA) 90 mouth into mcg/actuation inhaler the lungs every 4 hours as needed for Wheezing or Shortness of Breath. Shake well before use. Active carvedilol (COREG) 6.25 Take one 180 tablet 3 mg tablet tablet by 9 mouth twice daily with meals. Take with food. Active atorvastatin (LIPITOR) 80 TAKE 1 TABLET 90 tablet 3 mg tablet BY MOUTH 0 DAILY Active losartan (COZAAR) 100 mg TAKE 1 TABLET 90 tablet 1 tablet BY MOUTH 0 DAILY Active isosorbide mononitrate SR TAKE 1 TABLET 90 tablet 0 (IMDUR) 30 mg tablet BY MOUTH 0 DAILY Active clopiDOGrel (PLAVIX) 75 Take 75 mg by 0 mg tablet mouth daily. 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 Stable. Plan for annual scan. Due for r epeat 12/2019 Gastroesophageal reflux disease with esophagitis 07/2016 Last Assessment & Plan: Formatting of this note might be differ ent from the original. SHE WAS GIVEN A PRESCRIPTION FOR PROTON IX UPON DISCHARGE FROM THE HOSPITAL FOR GERD. UNFORTUNATELY, SHE WAS UNABLE TO GET IT FILLED. i HAVE RE-WRITTEN IT FOR HER. OTHER PPI'S CANNOT BE USED DUE TO THEIR POTENTIAL INTERACTION WITH CLOPIDOGREL - LEADING TO AN INCREASED R ISK OF STENT THROMBOSIS. Chest pain 10/07/2016 Chronic diastolic (congestive) heart failure 016 Overview: Formatting of this note might be differ ent from the original. 09-10-16-Echo-Overall LV systolic funct ion is normal. LVEF ~=55-60%, Grade II (moderate) left ventricular diastoli c dysfunction. Elevated left atrial pressure, Mild concentric LV hypertroph y, Moderately elevated central venous pressure, Moderate mitral regurg itation, Mild to moderate tricuspid regurgitation, Estimated Peak Systolic PA Pressure = 45 mmHg L ast Assessment & Plan: Formatting of this note might be differ ent from the original. Well compensated. Controlled on current regimen. No changes. COPD (chronic obstructive pulmonary disease) 016 Overview: Formatting of this note is different fr om the original. Emphysema noted on Chest CT. Inhalers albuterol Results for ILIR MCWILLIAMS ( 7) as of 01/16/2019 08:31 Ref. Range 10/30/2016 10:51 FVC-Pre Latest Units: L 3.03 FVC-%Pred-pre Latest Units: % 92 FEV1-Pre Latest Units: L 2.48 FEV1-%Pred-Pre Latest Units: % 98 [id number]-Pre Latest Units: % 112 RVPleth-Pre Latest Units: L 1.98 RVPleth-%Pred-Pre Latest Units: % 98 TLCPleth-Pre Latest Units: L 4.76 TLCPleth-%Pred-Pre Latest Units: % 94 DLCOunc-Pre Latest Units: ml/min/mmHg 1 3.26 DLCOunc-%Pred-Pre Latest Units: % 61 DLVA-Pred Latest Units: ml/min/mmHg/L 4 .42 DLVA-Pre Latest Units: ml/min/mmHg/L 2. 81 DLVA-%Pred-Pre Latest Units: % 63 DLVA-SD Latest Units: ml/min/mmHg/L 0.8 0 DLVA-LLN Latest Units: ml/min/mmHg/L 2. 82 DLVA-ULN Latest Units: ml/min/mmHg/L 6. 02 DLCOunc-LLN Latest Units: ml/min/mmHg 1 3.96 DLCOunc-Pred Latest Units: ml/min/mmHg 21.46 ERVSVC-Pre Latest Units: L 0.67 [id number] Latest Units: L/sec 2.58 ICSVC-Pre Latest Units: L 2.45 PEF-Pre Latest Units: L/min 337.5 TGVPleth-Pre Latest Units: L 2.70 VCSVC-Pre Latest Units: L 3.12 DLCOunc-SD Latest Units: ml/min/mmHg 3. 75 DLCOunc-ULN Latest Units: ml/min/mmHg 2 8.96 <=""> Immunizations Flu Vaccine =>65 YO High-Dose (PF) 09/22 Pneumococcal Vaccine (23-Sherri Adult) Pneumococcal Vaccine(13-Sherri Peds/immuno compromised adult) 10/05/2017 Former Smoker; Quit date: 09/03/2016; 2 packs/day for 44 years (88 pk-yrs); Types: Cigarettes Last Assessment & Plan: Formatting of this note might be differ ent from the original. Patient is using her Symbicort as a res cue inhaler. I am going to go ahead and discontinue it today and send her i n a new prescription for albuterol which she can use as needed. I correctional counselor/case manager ed her on annual flu vaccination. She is up-to-date on her pneumonia vacc swati. We are going to plan that she will have annual chest CTs. Essential hypertension 09/11/2016 Last Assessment & Plan: Formatting of this note might be differ ent from the original. Increase losartan to 100mg daily. Dietary sodium restriction to <1500mg d aily. Alcoholic cirrhosis 09/11/2016 Tobacco abuse 09/11/2016 Ulcer of left lower leg 09/11/2016 CAD (coronary artery disease), [place] coronary artery 09/10/2016 Overview: Formatting of this note might be differ ent from the original. 09/09/16: Cath by Dr. Foss: 70% left m ain, 40-50% CFX 09/18/16: PCI of the left main proximal & ostium with a 4.0 x 12 Xience stent. PCI of the mid LAD with a 2.5 x 23 Xience stent. 10-08-16-Cath-Stents widely patent in t he left main and mid LAD Last Assessment & Plan: Formatting of this note might be differ ent from the original. No current angina. Controlled on current regimen. No changes. NSTEMI (non-ST elevated myocardial infarction) 09/10 Hyperglycemia 09/10/2016 Chronic respiratory failure 09/10/2016 Carotid artery stenosis 09/10/2016 Overview: Formatting of this note might be differ ent from the original. 09/09/16: Carotid ultrasound shows crit ical right internal carotid stenosis 05-31-18-Carotid doppler-The right proxi mal and mid internal carotid artery has turbulent flow with elevated veloci ties suggesting a >70% stenosis. The left proximal and mid internal fofana tid artery has elevated velocities suggesting a 50-79% stenosis, less than 70% based on ratio criteria. The right and left subclavian arteries have elevated velocities suggesting a >50% stenosis. Mitral regurgitation 09/10/2016 Tricuspid regurgitation 09/10/2016 History of alcohol abuse 09/09/2016 C. difficile enteritis 09/08/2016 Rectal prolapse 09/08/2016 PAD (peripheral artery disease) 09/04/2016 Overview: Formatting of this note might be differ ent from the original. 09/09/16: Cath and AARO by Dr. Foss: AARO and renal angio: 50% ostial right renal artery, 80% ostial left renal; 90% left common femoral, 70% bilateral iliacs, 100% left internal iliac, 90% left external iliac, sub-total righ t external iliac, 40% mid-Right SFA, Last Assessment & Plan: Formatting of this note might be differ ent from the original. She continues to have leg pain - for [facility] she follows with Dr. Lei. Resolved Problems Problem Noted Date Resolved Date Hypokalemia 09/10/2016 09/11/2016 Immunizations Name Administration Dates Next Due Flu Vaccine =>65 YO 10/05/2017 High-Dose (PF) Pneumococcal Vaccine 10/08/2016 (23-Sherri Adult) Pneumococcal 10/05/2017 Vaccine(13-Sherri Peds/immunocompromised adult) Surgical History Surgery Date Site/Laterality Comments CHOLECYSTECTOMY UPPER GASTROINTESTINAL 05/10/2019 N/A ESOPHAG OGASTRODUODENOSCOPY WITH BIOPSY - FLEXIBLE ENDOSCOPY performed by Jazmín Church MD at ENDO/GI Medical History Medical History Date Comments HTN (hypertension) Cirrhosis of liver (HCC) 1997 Hepatitis A 1997 PAD (peripheral artery disease) (HCC) History of alcohol abuse CAD (coronary artery disease), [place] 09/10/2016 coronary artery Carotid artery stenosis 09/10/2016 Chronic diastolic (congestive) heart 09/11/2016 failure (HCC) Mitral regurgitation 09/10/2016 Tricuspid regurgitation 09/10/2016 COPD (chronic obstructive pulmonary 09/11/2016 disease) (HCC) Essential hypertension 09/11/2016 Alcoholic cirrhosis (HCC) 09/11/2016 Tobacco abuse 09/11/2016 Chronic respiratory failure (HCC) 09/10/2016 Gastroesophageal reflux disease with 10/30/2016 esophagitis Stroke (HCC) pt states she had a stroke in her Rt eye Family History Medical History Relation Name Comments Heart Failure Mother Relation Name Status Comments Mother Social History Date Tobacco Use Types Packs/Day Years Used Quit: 09/03/2016 Former Smoker Cigarettes 2 44 Smokeless Tobacco: Never Used Comments Alcohol Use Standard Drinks/Week No 0 (1 standard drink = 0.6 o z pure alcohol) Sex Assigned at Date Recorded Not on file Last Filed Vital Signs Reading Time Taken Comments Vital Sign 191/78 07/11/2020 1:03 PM CDT Blood Pressure 54 07/11/2020 1:03 PM CDT Pulse 36.7 C (98.1 F) 07/11/2020 1:02 PM CDT Temperature 14 07/20/2019 11:43 AM CDT Respiratory Rate 95% 05/16/2019 7:24 AM CDT Oxygen Saturation - - Inhaled Oxygen Concentration 81.2 kg (179 lb) 07/11/2020 1:02 PM CDT Weight 165.1 cm (5' 5") 07/11/2020 1:02 PM CDT Height 29.79 07/11/2020 1:02 PM CDT Body Mass Index Plan of Treatment Health Maintenance Due Date Last Done Comments MEDICARE ANNUAL WELLNESS 1955 VISIT DTAP/TDAP VACCINES (1 - 1973 Tdap) HEPATITIS C SCREENING 1973 PHYSICAL (COMPREHENSIVE) 1973 EXAM BREAST CANCER SCREENING 1995 COLORECTAL CANCER 2005 SCREENING SHINGLES RECOMBINANT 2005 VACCINE (1 of 2) OSTEOPOROSIS 2020 SCREENING/MONITORING INFLUENZA VACCINE 08/22/2021 10/05/2017 PNEUMONIA (PPSV23) 10/05/2022 10/05/2017, VACCINE (2 of 2 - PPSV23) 10/08/2016 Results Not on filefrom Last 3 Months Insurance Type Payer Benefit Subscriber ID Effective Phone Address Plan / Dates Group Medicare MEDICARE MEDICARE [id number] 2020-P PART A AND resent B Medicaid [facility] MEDICAID [facility] [id number] 2015-P [place] [id number] Advance Directives Patient Caser In Explanation Type Date Recorded Advance 09/04/2016 6:14 PM Directive/DPOA Date Inactivated Comments Code Status Date Activated 05/16/2019 3:59 PM Full Code 05/05/2019 11:49 PM Provider has discussed Code Status Yes w/Patient or Family? 10/09/2016 1:27 PM Full Code 10/07/2016 8:32 PM Provider has discussed Code Status Yes w/Patient or Family? 10/07/2016 8:32 PM Full Code 10/07/2016 7:03 PM Provider has discussed Code Status No, more discussi on w/Patient or Family? needed 09/21/2016 7:37 PM Full Code 09/04/2016 5:41 PM Provider has discussed Code Status No, discussion no t w/Patient or Family? necessary based on Dx
[2021-07-23 11:52] LABS: HEMATOCRIT 31 % (35-52); HEMOGLOBIN 9.2 g/dL (11.5-16.0); MEAN CORPUSCULAR HEMOGLOBIN 26 pg (25-34); MEAN CORPUSCULAR HGB CONC 30 g/dL (32-36); MEAN CORPUSCULAR VOLUME 86 fL (80-99); MEAN PLATELET VOLUME 10.7 fL (9.0-12.2); PLATELET COUNT 294 10^3/uL (130-400); WHITE BLOOD COUNT 7.9 10^3/uL (4.3-11.0)
[2021-07-23 12:03] LABS: PROTHROMBIN TIME PATIENT 13.2 SEC (12.2-14.7)
--- NOTE | 2021-07-23 12:08 | Diagnostic Imaging Report ---
INDICATION: Preop chest. History of coronary artery disease. COMPARISON: 05/30/2021 FINDINGS: Single frontal radiograph view of the chest was obtained and demonstrates moderate cardiomegaly and moderate prominence of pulmonary vasculature. Lungs also show diffuse prominence of the interstitium. This appears progressed when compared to prior exam. Small bibasilar effusions are also noted, right greater than left. There is no pneumothorax. Osseous structures show no gross acute abnormalities. IMPRESSION: 1. Cardiomegaly with sequela of CHF including interstitial pulmonary edema and small bibasilar effusions. Dictated by: Dictated on workstation # [id number]
[2021-07-23 12:18] LABS: ALBUMIN 4.1 GM/DL (3.2-4.5); BILIRUBIN,TOTAL 0.9 MG/DL (0.1-1.0); CALCIUM 9.8 MG/DL (8.5-10.1); CREATININE SERUM 0.86 MG/DL (0.60-1.30)
[~2021-07-23 14:00] MED LIST changes: +ACET-2267 PO; +BUDE9TAB2 PO; +CLOP75TA28 PO; +FLUT9.9S NS; +FURO20TA4 PO; +HEParin (CATH LAB) 2,000 ML IV ONE; +LIDOCAINE 1% INJ 20 ML 20 ML VIAL ONE; +NS IV 1000 ML 1,000 ML IV SCH; +NS IV 1000 ML 1,000 ML ONE; +POTA10TA36 PO
[2021-07-23] MEDS ORDERED: MIDAZOLAM 5 MG/5 ML (VERSED) VIAL ONE ×2 (14:03→15:19)
[2021-07-23] MEDS ORDERED: HEParin 1000 UNIT/ML (10ML VIAL) FOR BOLUS ONE (14:05)
[2021-07-23] MEDS ORDERED: fentaNYL INJ 100 MCG/2 ML AMP ONE (14:06)
[2021-07-23] MEDS ORDERED: NITRO DRIP 25000 MCG/D5W 250 ML IV ONE (14:29)
[2021-07-23] MEDS ORDERED: LIDOCAINE 1% INJ 20 ML 20 ML VIAL ONE (14:41)
[2021-07-23] MEDS ORDERED: VERAPAMIL 5 MG/2 ML (CALAN) VIAL IV ONE (14:49)
[2021-07-23] MEDS ORDERED: PATIENT MAY USE OWN MEDS, ALL PO SCH (15:45)
[2021-07-23] MEDS ORDERED: NS IV 1000 ML 1,000 ML IV SCH (15:45)
--- NOTE | 2021-07-23 15:50 | Cardiac Cath Report ---
Cardiac Cath Report Physician (s)/Brick Offbearer (s) Physician SUSAN LIM MD Pre-Procedure Diagnosis Pre-Procedure Diagnosis: cp Post-Procedure Note Procedure Start Date: Jul 23, 2021 Name of Procedure: Attempt for radial and femoral access for cardiac catheterization Findings/Procedure Note PROCEDURE NOTE: 66-year-old lady known to have severe lesion in the proximal obtuse marginal branch, she was scheduled for elective intervention today, procedure initially was canceled due to severe anemia. Had diagnostic catheterization done. After explaining the procedure to the patient and explaining the procedure, all pros and cons were explained, patient signed a consent then placed on the cardiac catheterization laboratory, multiple attempt to access the right femoral and left femoral and right radial artery without success, I was able to access the artery and the right femoral without ability to advance a wire due to occlusion in the artery. After multiple attempt procedure was aborted. 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
--- NOTE | 2021-07-23 15:51 | Discharge Inst-Post CATH ---
Discharge Inst-CATH/EP Problems Reviewed?: Yes Post Cardiac Cath/EP D/C Inst Follow Up/Plan Schedule appointment with Dr. Ascencio at <b>CARDIAC CATH/EP PROCEDURE DISCHARGE INSTRUCTIONS</b> ACTIVITY * Go Home directly and rest. * Limit activity of the leg (or wrist if it was used) for 7 days including aerobics, swimming, jogging, bicycling, etc. * Restrict stair-climbing for 7 days if possible, if not, climb up with your non-cath leg, then bring together on the same step. * Avoid lifting, pushing, pulling or excessive movement of the affected extremity for 7 days. * Customary sexual activity may be resumed after 2 days-use caution not to use a position that strains or causes pain to the affected extremity. * No driving for 24 hours. * NO SMOKING. * Avoid straining for bowel movements for 7 days. * Gentle walking on level ground is allowed. * Returning to work will depend on the type of procedure and the results. Your doctor will discuss this with you. CALL YOUR DOCTOR FOR ANY OF THE FOLLOWING: *If bleeding from the puncture site occurs- Apply gentle pressure to site with clean cloth and call your doctor or EMS. * If a knot or lump forms under the skin, increases in size, or causes pain. * If bruising appears to be worsening or moving further down your leg instead of disappearing. * Temperature above 101 F. CARE OF YOUR GROIN INCISION; * Bruising or purple discoloration of the skin near the puncture site is common. * You may shower only, no bathtub bathing for 5 days. Be careful to avoid slipping as your leg may feel stiff. * If a closure device was used on your femoral artery, please see the attached guide regarding care of the device and your leg. * Leave dressing on FOR 24 hours. CARE OF YOUR WRIST INCISION; * Bruising or purple discoloration of the skin near the puncture site is common. * You may shower. * DO NOT submerge wrist. * Leave dressing on FOR 24 hours. SUSAN LIM MD Jul 23, 2021 15:51
== END 2021-07-23 18:15 ==
LOC: SDC 16:00 → CATH 18:15
PROVIDERS: ATTEND Internal Medicine Cardiovascular Disease
DX: I25.10 Atherosclerotic heart disease of native coronary artery without angina pectoris (principal); I10 Essential (primary) hypertension; I73.9 Peripheral vascular disease, unspecified; I65.23 Occlusion and stenosis of bilateral carotid arteries; E78.5 Hyperlipidemia, unspecified; Z79.02 Long term (current) use of antithrombotics/antiplatelets; Z90.49 Acquired absence of other specified parts of digestive tract; Z79.899 Other long term (current) drug therapy; Z87.891 Personal history of nicotine dependence; Z83.3 Family history of diabetes mellitus
CPT/HCPCS: 36140; 71045; 80053; 80061; 85027; 85610; 85730; 92920; C1769; 36415

== ENCOUNTER → 2021-08-04 | Outpatient (CLI) | payer MEDICARE, MEDICAID ==
[~2021-08-04] MED LIST changes: -HEParin (CATH LAB) 2,000 ML IV ONE; -LIDOCAINE 1% INJ 20 ML 20 ML VIAL ONE; -NS IV 1000 ML 1,000 ML IV SCH; -NS IV 1000 ML 1,000 ML ONE
== END ==
LOC: LAB FS 10:04
PROVIDERS: ATTEND Internal Medicine Cardiovascular Disease
DX: Z20.822 Contact with and (suspected) exposure to COVID-19 (principal)
CPT/HCPCS: 87635

== ENCOUNTER 2021-08-15 11:37 | Inpatient (IN) | payer MEDICARE, MEDICAID ==
[~2021-08-15] VITALS: Ht 167.7 cm; Wt 55.0 kg
--- NOTE | 2021-08-15 11:39 | ED General ---
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 Patient states she cannot walk greater than 4 steps without stopping due to fatigue and shortness of breath. She reports 5-minute episode of chest pain this morning which was worse with deep breathing. She states this is different than her typical angina pattern. She denies headache, dizziness, lightheadedness, fever cough, sore throat. Denies abdominal pain. Reports black stools for the past several weeks. She last required transfusion this summer. No urinary frequency urgency or dysuria. No other acute symptoms or complaints. Patient lives by herself Timing/Duration: 12-24 Hours Severity: Moderate Modifying Factors: improves with Movement Associated Systoms: Other Allergies and Home Medications Allergies Coded Allergies: No Known Drug Allergies (Verified , 05/13/21) Patient Home Medication List Home Medication List Reviewed: Yes Acetaminophen (Tylenol Extra Strength) 500 Mg Tablet, 1,000 MG PO Q8H PRN for PAIN-MILD (1-4), (Reported) Entered as Reported by: OSBALDO CATHERINE on 06/02/21 0903 Atorvastatin Calcium (Atorvastatin Calcium) 80 Mg Tablet, 80 MG PO DAILY, (Reported) Entered as Reported by: DOMINIC CAMEJO on 12/09/18 0842 Budesonide (Budesonide ER) 9 Mg Tabdr...er, 9 MG PO DAILY, (Reported) Entered as Reported by: OSBALDO CATHERINE on 07/23/21 1220 Carvedilol (Carvedilol) 6.25 Mg Tablet, 6.25 MG PO BID, (Reported) Entered as Reported by: NADEEM BASHIR on 05/07/21 1053 Clopidogrel Bisulfate (Clopidogrel) 75 Mg Tablet, 75 MG PO DAILY, (Reported) Entered as Reported by: OSBALDO CATHERINE on 06/02/21 0900 Fluticasone Propionate (Flonase Allergy Relief) 9.9 Ml [place].susp, 1 SPRAY NS DAILY PRN for CONGESTION, (Reported) Entered as Reported by: OSBALDO CATHERINE on 07/23/21 1220 Furosemide (Furosemide) 20 Mg Tablet, 20 MG PO DAILY, (Reported) Entered as Reported by: OSBALDO CATHERINE on 06/02/21 09 Isosorbide Mononitrate (Isosorbide Mononitrate ER) 30 Mg Tab.er.24h, 30 MG PO DAILY, (Reported) Entered as Reported by: DOMINIC CAMEJO on 12/09/18 0842 Losartan Potassium (Losartan Potassium) 100 Mg Tablet, 100 MG PO DAILY, (R eported) Entered as Reported by: DOMINIC CAMEJO on 12/09/18 0842 Multivitamin/Iron/Folic Acid (Centrum Adults Tablet) 1 Each Tablet, 1 EACH PO DAILY, (Reported) Entered as Reported by: NADEEM BASHIR on 05/07/21 1053 Nitroglycerin (Nitroglycerin) 0.4 Mg Tab.subl, 0.4 MG SL UD PRN for CHEST PAIN (ANGINA), (Reported) Entered as Reported by: NADEEM BASHIR on 05/07/21 1053 Pantoprazole Sodium (Protonix) 40 Mg Tablet.dr, 40 MG PO DAILY, (Reported) Entered as Reported by: OSBALDO CATHERINE on 06/02/21 09 Potassium Chloride (Potassium Chloride) 10 Meq Tab.er.prt, 10 MEQ PO DAILY, (Reported) Entered as Reported by: OSBALDO CATHERINE on 06/02/21 09 Sucralfate (Sucralfate) 1 Gm Tablet, 1 GM PO WM, (Reported) Entered as Reported by: OSBALDO CATHERINE on 06/02/21 09 Review of Systems Review of Systems Constitutional: see HPI EENTM: see HPI Respiratory: see HPI Cardiovascular: see HPI Gastrointestinal: see HPI Genitourinary: see HPI Musculoskeletal: see HPI Skin: see HPI Psychiatric/Neurological: See HPI Hematologic/Lymphatic: See HPI Immunological/Allergic: see HPI All Other Systems Reviewed Negative Unless Noted: Yes Past Vpcdmif-Ysssqf-Avjjof Hx Patient Social History Tobacco Use?: No Immunizations Up To Date Tetanus Booster (TDap): Unknown Seasonal Allergies Seasonal Allergies: No Past Medical History Surgeries: Yes (CARDIAC CATH--STENTS X 2; CERVICAL CONIZATION) Gallbladder Respiratory: Yes COPD, Emphysema Currently Using CPAP: No Cardiac: Yes Coronary Artery Disease, Heart Murmur, High Cholesterol, Hypertension Neurological: No Headaches /Migraines Reproductive Disorders: Yes (CERVICAL DYSPLASIA. 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 4.8oz. [id number]; 24.02 BMI Method:Stated General Appearance: WD/WN, Other Eyes: Bilateral Eye Normal Inspection, Bilateral Eye PERRL, Bilateral Eye EOMI HEENT: PERRL/EOMI, Pharynx Normal, Moist Mucous Membranes Neck: Normal Inspection Respiratory: Lungs Clear, Normal Breath Sounds (Generalized weakness) Cardiovascular: Regular Rate, Rhythm Gastrointestinal: Non Tender, Soft Back: Normal Inspection Neurologic/Psychiatric: Alert, Oriented x3, cigarette filter inspector II-XII Norm as Tested Skin: Pallor Focused Exam Sepsis Stage: Ruled Out Progress/Results/Core Measures Suspected Sepsis SIRS Temperature: Pulse: Respiratory Rate: Laboratory Tests 08/15/21 11:43: White Blood Count 6.7 Blood Pressure / Mean: Laboratory Tests 08/15/21 11:43: Creatinine 0.90, Platelet Count 285, Total Bilirubin 0.6 Results/Orders Lab Results Laboratory Tests Test 08/15/21 11:43 Range/Units White Blood Count 6.7 4.3-11.0 10^3/uL Red Blood Count 3.28 L 3.80-5.11 10^6/uL Hemoglobin 8.0 L 11.5-16.0 g/dL Hematocrit 27 L 35-52 % Mean Corpuscular Volume 83 80-99 fL Mean Corpuscular Hemoglobin 24 L 25-34 pg Mean Corpuscular Hemoglobin Concent 29 L 32-36 g/dL Red Cell Distribution Width 17.4 H 10.0-14.5 % Platelet Count 285 130-400 10^3/uL Mean Platelet Volume 10.9 9.0-12.2 fL Immature Granulocyte % (Auto) 1 % Neutrophils (%) (Auto) 75 42-75 % Lymphocytes (%) (Auto) 12 12-44 % Monocytes (%) (Auto) 10 0-12 % Eosinophils (%) (Auto) 2 0-10 % Basophils (%) (Auto) 1 0-10 % Neutrophils # (Auto) 5.0 1.8-7.8 X 10^3 Lymphocytes # (Auto) 0.8 L 1.0-4.0 X 10^3 Monocytes # (Auto) 0.6 0.0-1.0 X 10^3 Eosinophils # (Auto) 0.2 0.0-0.3 10^3/uL Basophils # (Auto) 0.1 0.0-0.1 10^3/uL Immature Granulocyte # (Auto) 0.1 0.0-0.1 10^3/uL Sodium Level 137 135-145 MMOL/L Potassium Level 4.1 3.6-5.0 MMOL/L Chloride Level 103 98-107 MMOL/L Carbon Dioxide Level 19 L 21-32 MMOL/L Anion Gap 15 H 5-14 MMOL/L Blood Urea Nitrogen 14 7-18 MG/DL Creatinine 0.90 0.60-1.30 MG/DL Estimat Glomerular Filtration Rate 63 BUN/Creatinine Ratio 16 Glucose Level 92 70-105 MG/DL Calcium Level 9.1 8.5-10.1 MG/DL Corrected Calcium 9.3 8.5-10.1 MG/DL Total Bilirubin 0.6 0.1-1.0 MG/DL Aspartate Amino Transf (AST/SGOT) 34 5-34 U/L Alanine Aminotransferase (ALT/SGPT) 22 0-55 U/L Alkaline Phosphatase 91 40-136 U/L Troponin I < 0.30 <0.30 NG/ML Pro-B-Type Natriuretic Peptide 60134.0 H <75.0 PG/ML Total Protein 6.4 6.4-8.2 GM/DL Albumin 3.7 3.2-4.5 GM/DL My Orders Al - ALEJANDRA HUIZAR DO Cbc With Automated Diff (08/15/21 11:39) Comprehensive Metabolic Panel (08/15/21 11:39) Troponin I Fs (08/15/21 11:39) Chest 1 View Ap/Pa Only (08/15/21 11:39) Probnp Fs (08/15/21 11:39) Urinalysis (08/15/21 12:15) Furosemide Injection (Lasix Injection) (08/15/21 13:00) Medications Given in ED Current Medications Medications Dose Ordered Sig/Zulma Route Start Time Stop Time Status Last Admin Dose Admin Furosemide 40 mg ONCE ONCE IVP 08/15/21 13:00 08/15/21 13:01 DC 08/15/21 13:08 40 MG Vital Signs/I&O 08/15/21 11:38 Temp 37.0 Pulse 51 Resp 20 B/P (MAP) 121/52 (75) Pulse Ox 100 O2 Delivery Room Air Capillary Refill : Departure Communication (Admissions) Chest x-ray: No acute cardiopulmonary disease per Generalized weakness, fatigue, shortness of breath likely secondary to heart failure with dilutional anemia in the setting of chronic GI bleed. IV Lasix given. Dr. Dave accepts to [facility] at 1245 Impression Primary Impression: Generalized weakness Additional Impressions: Congestive heart failure Chronic anemia Disposition: ADMITTED INPATIENT Condition: Stable Admissions Decision to Admit Reason: Admit from ER (General) Decision to Admit/Date: Aug 15, 2021 Time/Decision to Admit Time: 12:45 Transfer Transfer Reason: Patient preference Method of Transfer: EMS Departure-Patient Inst. Referrals: DOMINIC JONES APRN (PCP/Family) Primary Care Physician ALEJANDRA HUIZAR DO Aug 15, 2021 11:39
--- OUTSIDE RECORDS SUMMARY | 2021-08-15 11:41 | XMS REPORT | Clinical Summary ---
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 If you d o not see the information that you expected, contact Release of Information in [facility] [employer] Information Management department at [phone] for further assistan ce in locating additional records.[facility] Allergies No Known Active Allergies Medications End Date Status Medication Sig Dispensed Refills Start Date Active amLODIPine (NORVASC) 10 Take 10 mg by 0 mg tablet mouth daily. Active acetaminophen (TYLENOL) Take 325 mg 0 325 mg tablet by mouth every 4 hours as needed for Pain. Active guaiFENesin LA (MUCINEX) Take 2 Tabs 180 Tab 0 1 600 mg tablet by mouth 6 twice daily. Additional Information Patient taking differently: 600 mg Oral DAILY, Informant: Self, Reported on 05/07/2019 Active vitamins, multi Take 1 Tab by 30 Tab 3 09/21/20 1 w/minerals 27-0.4 mg tab mouth daily. 6 Active nitroglycerin (NITROSTAT) Place 1 Tab 25 Tab 3 0.4 mg tablet under tongue 6 every 5 minutes as needed for Chest Pain. Max of 3 tablets, call 911. [address] Take 1 Tab by 180 Tab 3 12/09/20 1 (PROTONIX) 40 mg tablet mouth twice [...] by 0 mg tablet mouth daily. Active budesonide (UCERIS) 9 mg Take 9 mg by 0 06/03 ER tablet mouth daily. 1 Active ondansetron (ZOFRAN ODT) 0 4 mg rapid dissolve 1 tablet Active sucralfate (CARAFATE) 1 TAKE 1 TABLET 0 gram tablet BY MOUTH 1 BEFORE MEAL(S) AND AT BEDTIME Active potassium chloride Take 10 mEq 0 (KLOR-CON 10) 10 mEq by mouth 1 tablet daily. Active furosemide (LASIX) 20 mg Take 20 mg by 0 05/08 tablet mouth daily. 1 Active aspirin EC 81 mg tablet Take one 90 tablet 1 tablet by 1 mouth daily. Take with food. 07/31/2021 Discontinued (Patient's Gardner ce) aspirin EC 81 mg tablet Take 81 mg by 0 mouth daily. Take with food. 07/31/2021 Discontinued (Patient's Gardner ce) calcium carbonate (TUMS) Chew 1 Tab by 30 Tab 4 500 mg (200 mg elemental mouth daily. 6 calcium) chewable tablet 07/31/2021 Discontinued (Patient's Gardner ce) senna (SENOKOT) 8.6 mg Take 1 Tab by 90 Tab 3 1 tablet mouth daily. 6 07/31/2021 Discontinued (Patient's Gardner ce) zinc sulfate 220 mg (50 Take 1 Cap by 60 Cap 4 09/21/201 mg elemental zinc) mouth daily. 6 capsule Active Problems Problem Noted Date Chronic systolic heart failure 08/06/2021 Coronary artery disease due to lipid rich plaque Shortness of breath 05/05/2019 Age-related nuclear cataract [...] on Chest CT. Inhalers albuterol Results for MIKKI MCWILLIAMS ( 7) as of 01/16/2019 08:31 Ref. Range 10/30/2016 10:51 FVC-Pre Latest Units: L 3.03 FVC-%Pred-pre Latest Units: % 92 FEV1-Pre Latest Units: L 2.48 FEV1-%Pred-Pre Latest Units: % 98 [id number]-Pre Latest Units: % 112 RVPleth-Pre Latest Units: [...] ml/min/mmHg 21.46 ERVSVC-Pre Latest Units: L 0.67 [id number] Latest Units: L/sec 2.58 ICSVC-Pre Latest Units: [...] which she can use as needed. I apprise counselor ed her on annual flu vaccination. She [...] lower leg 09/11/2016 CAD (coronary artery disease), levelock coronary artery 09/10/2016 Overview: Formatting of this [...] to have leg pain - for wh ich she follows with Dr. Lei. Resolved Problems Problem Noted Date Resolved Date Hypokalemia 09/10/2016 09/11/2016 Encounters Care Team Description Date Type Specialty Tex Ascencio MD ANGIOGRAPHY CORONARY ARTERY WITH LEFT HE ART CATHETERIZATION 08/06/2021 Surgery Cardiology Tex Ascencio MD Coronary artery disease due to lipid grayson h plaque 08/06/2021 Hospital Cardiology - Encounter 08/07/2021 Tex Ascencio MD History And Physical (Stent inpalnt toda y) 08/06/2021 Office Visit Cardiology 08/06/2021 Travel Yenni Peguero RN Lab Results (COVID) 08/05/2021 Documentation Cardiology Cayla Olivas RN Patient Questions 08/04/2021 Telephone Cardiology Aaron Lei MD PAD (peripheral artery disease) ([facility]) (P rimary Dx); Bilateral carotid artery stenosis; History of TIA (transient ischemic attack); Essential hypertension; Hyperlipidemia, unspecified hyperlipidemia type 07/31/2021 Office Visit General Surgery Aaron Lei MD PAD (peripheral artery disease) ([facility]); Bilateral carotid artery stenosis 07/31/2021 Clinical General Surgery Support Aaron Lei MD Bilateral carotid artery stenosis 07/31/2021 Clinical General Surgery Support Yenni Peguero, LU Records Request 07/31/2021 Documentation Cardiology Blas Rebolledo RN Precertification (medicare) 07/31/2021 Documentation Cardiology Yenni Peguero, LU Coronary artery disease involving levelock coronary artery of levelock heart with angina pectoris ([facility]) (Primary Dx); Encounter for screening laboratory testing for COVID-19 virus in asymptomatic patient 07/31/2021 Prep for Case Cardiology 07/31/2021 Travel from Last 3 Months Immunizations Name Administration Dates Next Due Flu [...] of alcohol abuse CAD (coronary artery disease), levelock 09/10/2016 coronary artery Carotid artery stenosis 09/10/2016 [...] Assigned at Date Recorded Not on file Date Recorded COVID-19 Exposure Response 08/06/2021 6:54 AM CDT In the last month, have you been in contact with No / Unsure someone who was confirmed or suspected to have Coronavirus / COVID-19? Last Filed Vital Signs Reading Time Taken Comments Vital Sign 119/76 08/07/2021 9:42 AM CDT Blood Pressure 67 08/07/2021 9:42 AM CDT Pulse 36.8 C (98.3 F) 08/07/2021 8:04 AM CDT Temperature 14 07/20/2019 11:43 AM CDT Respiratory Rate 96% 08/07/2021 9:42 AM CDT Oxygen Saturation - - Inhaled Oxygen Concentration 59 kg (130 lb) 08/06/2021 7:12 AM CDT Weight 165.1 cm (5' 5") 08/06/2021 7:12 AM CDT Height 21.63 08/06/2021 7:12 AM CDT Body Mass Index Plan of Treatment Health Maintenance Due Date Last Done Comments MEDICARE ANNUAL WELLNESS 1955 VISIT DTAP/TDAP VACCINES (1 - 1973 Tdap) HEPATITIS C SCREENING 1973 PHYSICAL (COMPREHENSIVE) 1973 EXAM BREAST CANCER SCREENING 1995 COLORECTAL CANCER 2005 SCREENING OSTEOPOROSIS 2020 SCREENING/MONITORING INFLUENZA VACCINE 06/22/2021 10/05/2017 SHINGLES RECOMBINANT 08/05/2021 06/10/2021 VACCINE (2 of 2) PNEUMONIA (PPSV23) 10/05/2022 10/05/2017, VACCINE (2 of 2 - PPSV23) 10/08/2016 Procedures Comments Procedure Name Priority Date/Time Associated Diag nosis HC BASIC METABOLIC PANEL Routine 08/07/2021 3:48 AM CDT HC CBC,AUTOMATED Routine 08/07/2021 3:48 AM CDT CARDIAC CATH REPORT 08/06/2021 6:47 PM CDT HC ACTIVATED CLTG TIME-OR 08/06/2021 LAB 11:11 AM CDT HC ACTIVATED CLTG TIME-OR 08/06/2021 LAB 10:42 AM CDT HC ACTIVATED CLTG TIME-OR 08/06/2021 LAB 10:18 AM CDT HC CBC,AUTOMATED STAT 08/06/2021 9:20 AM CDT HC BASIC METABOLIC PANEL STAT 08/06/2021 9:20 AM CDT CONSULT IV THERAPY TEAM Routine 08/06/2021 9:01 AM CDT CARDIAC CATH REPORT Routine 08/06/2021 Coronary a rtery disease 8:27 AM CDT involving levelock coronary artery of levelock heart with angina pectoris (HCC) ECG-SCAN 08/06/2021 12:00 AM CDT ECG-SCAN 08/06/2021 12:00 AM CDT PROCEDURE RECORD-SCAN 08/06/2021 12:00 AM CDT TELEMETRY STRIPS-SCAN 08/06/2021 12:00 AM CDT COVID-19 (SARS-COV-2) PCR Routine 08/04/2021 Simeono reynold for screening laboratory testing for COVID-19 virus in asymptomatic patient CARDIAC CATH REPORT Routine 07/31/2021 Coronary a rtery disease 3:14 PM CDT involving levelock coronary artery of levelock heart with angina pectoris (HCC) VAS US DUPLEX SCAN Routine 07/31/2021 Bilateral c arotid artery CAROTID BILATERAL stenosis VAS US NONINVASIVE LOWER Routine 07/31/2021 PAD ( peripheral artery EXT PVR disease) (HCC) LIPID PROFILE Routine 07/23/2021 BASIC METABOLIC PANEL Routine 07/23/2021 CBC Routine 07/23/2021 from Last 3 Months Results * CBC (08/07/2021 3:48 AM CDT) Only the most recent of 3 results within the time period is included. White Blood 9.0 4.5 - 11.0 K/UL [facility] Cells RBC 3.29 (L) 4.0 - 5.0 M/UL [facility] Hemoglobin 8.3 (L) 12.0 - 15.0 GM/DL [facility] Hematocrit 26.5 (L) 36 - 45 % [facility] MCV 80.7 80 - 100 FL [facility] MCH 25.1 (L) 26 - 34 PG [facility] MCHC 31.1 (L) 32.0 - 36.0 G/DL [facility] RDW 19.2 (H) 11 - 15 % [facility] Platelet Count 208 150 - 400 K/UL [facility] MPV 9.3 7 - 11 FL [facility] Specimen Blood Performing Organization Address City/State/ZIP Code P stewart Number [facility] [address] [place] [address] * BASIC METABOLIC PANEL (08/07/2021 3:48 AM CDT) Only the most recent of 3 results within the time period is included. Sodium 138 137 - 147 MMOL/L [facility] Potassium 4.2 3.5 - 5.1 MMOL/L [facility] Chloride 107 98 - 110 MMOL/L [facility] CO2 19 (L) 21 - 30 MMOL/L [facility] Anion Gap 12 3 - 12 [facility] Glucose 95 70 - 100 MG/DL [facility] Blood Urea 14 7 - 25 MG/DL [facility] Nitrogen Creatinine 0.84 0.4 - 1.00 MG/DL [facility] Calcium 8.8 8.5 - 10.6 MG/DL [facility] eGFR Non >60 >60 mL/min [facility] Comment: Swiss The eGFR is not validated f or use in drug dosing adjustments. Continue to use estimated creatinine clearance per dosing reference text. Please contact the Clinical Pharmacist for questions. eGFR >60 >60 mL/min [facility] Swiss Comment: The eGFR is not validated for use in drug dosing adjustments. Continue to use estimated creatinine clearance per dosing reference text. Please contact the Clinical Pharmacist for questions. Specimen Blood Performing Organization Address City/State/ZIP Code P stewart Number [facility] [address] [facility] [place] [place] [address] * CARDIAC CATH REPORT (08/06/2021 6:47 PM CDT) Procedure Note Leora Nj MBBS - 08/06/2021 6:47 PM CDT [facility] at [facility] CARDIAC CATHETERIZATION REPORT Page 2 MIKKI Huynh : 1955 #: [id number] MR #/Billing ID #: [id number] / [id number] DATE: 08/06/2021 CHIP SEPARATOR: Tex Ascencio MD DICTATING PROVIDER: Leora Nj MD REFERRING PHYSICIAN: Tex Ascencio MD GARMENT INSPECTOR: Dr. Tex Ascencio INDICATION FOR PROCEDURE: Ms. Mcwilliams is a 66-year-old female with history of CAD, status post PCI of left main and mid LAD in 2016, peripheral vascular disease, severe mitral regurgitation, carotid artery disease, COPD, GERD, who was referred for cardiac catheterization with possible percutaneous coronary intervention due to recurrent exertional chest discomfort. PROCEDURES: 1. Left heart catheterization. 2. Coronary angiography. 3. Percutaneous coronary intervention of proximal and mid first obtuse marginal vessel with placement of drug-eluting stents. CONSENT: Informed consent was obtained from the patient after thorough discussion of risks, benefits, and potential complications. The patient verbalized understanding and agreed to undergo the procedure. PROCEDURE DETAILS: The patient was brought to the cardiac catheterization area in a fasting and nonsedated state. A total of 2 mg of Versed and 200 mcg of fentanyl were administered intravenously throughout the procedure. Moderate conscious sedation was maintained for 109 minutes, which was monitored throughout the procedure by me, my attending, and clinical laboratory medical director staff. Blood pressure, oxygen level, heart rate, and level of consciousness were assessed throughout the procedure and at its conclusion. LEFT HEART CATHETERIZATION VIA LEFT RADIAL ACCESS: The left wrist was draped and prepped in usual sterile fashion. After this, we utilized 3 mL of 1% lidocaine and a micro access kit to access left radial artery under direct ultrasound guidance. Over the wire, a 6-Ghanaian Slender sheath was introduced. 4000 units of heparin were administered intravenously, and then 200 mcg of nitroglycerin and 2.5 mg of verapamil were administered intra-arterially once access was obtained. Subsequently, we utilized TIG 4 catheter and performed left heart catheterization and selective right coronary angiography. A JL 3.5 catheter was used to perform selective angiography of the left system. A 6- Ghanaian EBU 3.5 guide was used for PCI of obtuse marginal vessel, the details of which are below. At the end of the procedure, all catheters and wires were removed. Patient received a TR Band in the right wrist area. Patient was transported back to [facility] area in hemodynamically stable and pain-free state. HEMODYNAMICS: 1. Central aortic pressure: 148/51 mmHg with a mean arterial pressure of 88 mmHg. 2. Left ventricular systolic pressure: 200 mmHg. 3. Left ventricular end-diastolic pressu re: 20 mmHg. SELECTIVE CORONARY ANGIOGRAPHY: 1. Left main coronary artery: Previousl y placed stent in left main coronary artery is patent without any significant in-stent restenosis. The left main coronary artery bifurcates into left anterior descending artery and left circumflex artery. 2. Left anterior descending artery: A l arge vessel which gives rise to 1 large diagonal vessel. The proximal LAD has a tubular segment of 30% to 40% stenosis just proximal to the takeoff of the first diagonal vessel. This is a type 2 LAD. 3. Left circumflex artery: A small-anthony yung vessel which gives rise to 1 large first obtuse marginal vessel. The proximal portion of the 1st obtuse marginal vessel has a heavily calcified eccentric subtotal occlusion with 99% stenosis. The mid first obtuse marginal vessel has another focal stenosis of 70% to 80% severity. The distal portion of the 2nd obtuse marginal vessel gives rise to 2 branches and is free of significant CAD. 4. Right coronary artery: A large, kendall nant vessel which arises normally from the right coronary sinus. The proximal and mid coronary artery have diffuse luminal irregularities with about 10% to 20% disease. The mid RCA, in addition, has a focal calcified stenosis of 80% severity. The RCA bifurcates into right posterior descending artery and right posterolateral ventricular branch, which are free of angiographic evidence of significant disease. PERCUTANEOUS CORONARY INTERVENTION OF FIRST OBTUSE MARGINAL VESSEL: For this purpose, a 6-Ghanaian EBU 3.5 guide was used to engage the ostium of left main coronary artery. A 0.014 x 182 cm Luge wire was then advanced into the obtuse marginal vessel and was placed in the distal obtuse marginal vessel. A 2.0 x 15 mm Takeru balloon was then attempted to be advanced across the target lesion, but there was difficulty in advancing the balloon all the way across the lesion. A Corsair microcatheter was then advanced over the Luge wire into the mid part of the obtuse marginal vessel. The Luge wire was then exchanged for a 0.014 x 300 cm Luge wire. The microcatheter was removed, and a 1.5 x 15 mm Trek balloon was inflated across the target lesion and proximal obtuse marginal vessel at 16 atmospheres. Due to difficulty in advancing the balloon, a 6-Ghanaian Teleflex GuideLiner was then advanced into the proximal left main for additional support. A 2.0 x 15 mm Takeru balloon was then inflated across the proximal obtuse marginal artery lesion at 14 atmospheres. This was followed by a 2.0 x 20 mm NC Bristol balloon, which was inflated in the proximal OM at 18 atmospheres. A 2.0 x 30 mm Brad drug-eluting stent was then attempted to be advanced across the target lesion, but there was difficulty in delivering the stent. A 0.014 [place]lam wire was then advanced into the midportion of the obtuse marginal vessel for additional support. A 2.25 x 20 mm NC Bristol balloon was then inflated at 6 atmospheres and deflated to help advancement of the GuideLiner into proximal portion of the obtuse marginal vessel. The lesion was predilated again with a 2.5 x 15 mm NC Bristol balloon at 16 atmospheres. A 2.0 x 30 mm [place] drug-eluting stent was then deployed across the culprit lesion and proximal obtuse marginal vessel at 18 atmospheres. The stent was post dilated with a 2.5 x 20 mm NC Bristol balloon at 20 atmospheres. The Grand Slam wire was removed prior to stent deployment. A 2.5 x 20 mm NC Bristol balloon was then used to predilate the mid obtuse marginal vessel lesion at 20 atmospheres. A 2.5 x 12 mm Brad drug- eluting stent then deployed across the mid obtuse marginal lesion at 14 atmospheres. A 3.0 x 12 mm Bristol balloon was then used to post dilate the proximal OM stent at 20 and 22 atmospheres. The wire and balloon were withdrawn into the guide. Post wire angiogram showed good stent apposition and expansion without evidence of distal wire perforation or coronary dissection. LESION CHARACTERISTICS: 1. Lesion #1: a. Lesion location: Proximal first obtuse marginal vessel. b. ACC/AHA type: C. c. Pre-intervention stenosis: Subtotal occlusion with heavily calcified lesion with distal DAVION-3 flow. d. Post intervention stenosis: 0% with distal DAVION-3 flow. 2. Lesion #2: a. Lesion location: Mid first obtuse marginal vessel. b. ACC/AHA type: A. c. Pre-intervention stenosis: 70% to 80% with DAVION-3 flow. d. Post intervention stenosis: 0% with distal DAVION-3 flow. CONTRAST: 240 mL. FLUOROSCOPY TIME: 38.8 minutes. AIR KERMA: 2063 mGy. ATTESTATION: My attending, Dr. Tex Ascencio, was present for the entire case, performing kraft portions of the procedure. FINAL IMPRESSION: 1. Subtotal occlusion of proximal first obtuse marginal vessel, status post percutaneous intervention with placement of a 2.0 x 30 mm Resolute [place] drug- eluting stent, which was post dilated with a 3.0 NC balloon. 2. 70% to 80% stenosis in mid first obtu se marginal vessel, status post percutaneous intervention with placement of a 2.5 x 12 mm Resolute [place] drug- eluting stent. 3. Residual 80% calcified stenosis in mi d right coronary artery, not intervened at this time due to contrast constraints. 4. Moderate nonobstructive disease in le ft anterior descending territory. RECOMMENDATIONS: 1. Dual antiplatelet therapy with aspiri n and Plavix. 2. If patient has recurrent chest discom fort, we will consider intervention of residual RCA stenosis. 3. Routine post PCI care. 4. Cardiac rehab evaluation prior to dis charge. Tex Ascencio MD ISMAEL/MedQ /[id number] cc: - Tex Ascencio MD Performing Organization Address City/State/ZIP Code P stewart Number OTHER OUTSIDE LAB * POC ACTIVATED CLOTTING TIME (08/06/2021 11:11 AM CDT) Only the most recent of 3 results within the time period is included. Activated 291 s [facility] Clotting Time Specimen Performing Organization Address [facility] Code P stewart Number [facility] [address] [place] [address] * TELEMETRY STRIPS-SCAN (08/06/2021 12:00 AM CDT) Narrative Performed At This result has an attachment that is n ot available. Ordered by an unspecified provider. * ECG-SCAN (08/06/2021 12:00 AM CDT) Narrative Performed At This result has an attachment that is n ot available. Ordered by an unspecified provider. * ECG-SCAN (08/06/2021 12:00 AM CDT) Narrative Performed At This result has an attachment that is n ot available. Ordered by an unspecified provider. * PROCEDURE RECORD-SCAN (08/06/2021 12:00 AM CDT) Narrative Performed At This result has an attachment that is n ot available. Ordered by an unspecified provider. * COVID-19 (SARS-COV-2) PCR (08/04/2021) COVID-19 Negative OTHER OUTSIDE (SARS-CoV-2) LAB PCR COVID-19 OTHER OUTSIDE (SARS-CoV-2) LAB PCR Source Specimen Flocked Swab - Nasopharyngeal Narrative Performed At This result has an attachment that is n ot available. Performing Organization Address [facility]/ZIP Code P stewart Number OTHER OUTSIDE LAB * VAS US DUPLEX SCAN CAROTID BILATERAL (07/31/2021) Specimen Narrative Performed At [facility] RESULTS GIVEN IN OFFICE BY DR. GENIE SHANNON 08/01/21 Performing Organization Address City/State/ZIP Code P stewart Number [facility] * VAS US NONINVASIVE LOWER EXT PVR (07/31/2021) Specimen Narrative Performed At [facility] RESULTS GIVEN IN OFFICE BY DR. GENIE SHANNON 08/01/21 Performing Organization Address City/State/ZIP Code P stewart Number [facility] * LIPID PROFILE (07/23/2021) Cholesterol 102 OTHER OUTSIDE LAB Triglycerides 76 OTHER OUTSIDE LAB HDL 41 OTHER OUTSIDE LAB LDL 39 OTHER OUTSIDE LAB VLDL 15 OTHER OUTSIDE LAB Non HDL OTHER OUTSIDE Cholesterol LAB Cholesterol/HDL OTHER OUTSIDE Ratio LAB Specimen Blood - Blood Performing Organization Address City/State/ZIP Code P stewart Number OTHER OUTSIDE LAB from Last 3 Months Insurance Type Payer Benefit Subscriber ID Effective Phone Address Plan / Dates Group Medicare MEDICARE MEDICARE [id number] 2020-P PART A AND resent B Medicaid [facility] MEDICAID [facility] [id number] 2015-P COMMUNITY resent PLAN [facility]/HO [id number] 05/22/2021- P [place] resent HEALTH/SNF /PENITENTIARY [id number] Advance Directives 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 necessary based on Dx 05/16/2019 3:59 PM Full Code 05/05/2019 11:49 [...]
--- OUTSIDE RECORDS SUMMARY | 2021-08-15 11:41 | XMS REPORT | Encounter Summary ---
Author Author [facility] Organization [facility] Address Unknown Phone Unavailable Care Team Providers Care Gravity Prospector Name Role Phone Aaron Lei MD Unavailable Cj Antony MD Unavailable Nereida Campbell NP PCP Reason for Referral * Consult, Test & Treat (Routine) Referred By Contact Referred To Contact Status Reason Specialty Diagnoses / Procedures Geni Ascencio MD [address] [place] [id number] [phone] [facility] [address] [place] [address] Closed Cardiac Procedures Rehabilitation APPOINTMENT RN / Cardiac REQUEST: CARDIAC Rehabilitation REHAB Electronically signed by Geni Ascencio MD at Reason for Visit * Auth/Cert Referred By Contact Referred To Contact Status Reason Specialty Diagnoses / Procedures Diagnoses Coronary artery disease involving sokaogon coronary artery of sokaogon heart with angina pectoris (HCC) P rocedures CA CATH PLMT L HRT & ARTS W/NJX & ANGIO IMG S&I CA PRQ TRLUML CORONARY STENT W/ANGIO ONE ART/BRNCH ANGIOGRAPHY CORONARY ARTERY WITH LEFT HEART CATHETERIZATION PERCUTANEOUS CORONARY STENT PLACEMENT WITH ANGIOPLASTY Encounter Details Care Team Description Date Type Department Geni Ascencio MD [address] [place] [phone] Coronary artery disease due to lipid grayson h plaque 08/06/2021 Hospital Laboratory: Center for - Encounter [facility] 08/07/2021 [address] [facility]. [address] 2, [address] [place] [address] Social History Date Tobacco Use Types Packs/Day [...] or suspected to have Coronavirus / COVID-19? documented as of this encounter Last Filed Vital Signs Reading Time Taken Comments Vital Sign 119/76 08/07/2021 9:42 AM CDT Blood Pressure 67 08/07/2021 9:42 AM CDT Pulse 36.8 C (98.3 F) 08/07/2021 8:04 AM CDT Temperature - - Respiratory Rate 96% 08/07/2021 9:42 AM CDT Oxygen Saturation - - Inhaled Oxygen Concentration - - Weight - - Height - - Body Mass Index documented in this encounter Functional Status Date of Assessment Functional Status Response 05/08/2019 Does the patient have a hearing impairment: No 06/23/2018 Does the patient have a visual impairment: Yes 06/23/2018 Does the patient have impaired ambulation: Yes 12/08/2018 Does the patient have an activity of daily living No (ADL) impairment: 12/08/2018 Does the patient have an instrumental activity of No daily living (IADL) impairment: Date of Assessment Cognitive Status Response 06/23/2018 Does the patient have a cognitive impairment: No documented as of this encounter Discharge Instructions * Patient Instructions* Brittni Acosta RN - 08/07/2021 7:58 AM CDT Images from the original note were not included. Post Procedure Radial Access Discharge Instructions-BELIA When you go home: You may shower 24 hours after your procedure. Keep your puncture sites clean. Do not submerge your arm in a hot tub, pool, strickland or tub for 1 week. Keep the area clean and dry for one week (except for daily showers). Be sure your hands are clean when touching near the site. If a band-aid or dressing is still in place remove it before showering. Wash and dry thoroughly but gently. If needed, for your comfort, you may place a clean band-aid over the puncture site after you are clean and dry. It is best to leave it open to air as soon as it is comfortable to do so. Do not use ointments, creams, or powders on puncture site. Inspect site daily. Activity: (Unless otherwise instructed or unable to perform) Avoid any exertion for one week. Exertion is lifting over 5 lbs, or pushing a nd pulling with the affected arm. Do not take blood pressure or have blood drawn from the affected arm for 3 da ys. No straining for one week. You may be up and about while relaxing at home as you recover. You may resume sexual activity in one week. You may begin driving 2 days after your procedure if you are otherwise able t o drive. ---It is common to have mild soreness and/or a small, soft bruise around the sit e that can take up to two weeks to go away. A small amount of blood (not more than a teaspoon) from the site is also common. WHEN TO CALL THE DOCTOR: Complications are rare but can happen. If you have significant bleeding (more than a teaspoon) sit down, apply firm pressure at the site and call 911. Bleeding from a large vessel needs profession al help. If you have a lump underneath the skin (more than a pea size) at the site. If you have signs of infection at the site such as: redness, warm to touch, d rainage, increasing soreness, a fever (100 degrees or more) and/or chills. Soreness that continues more than a week or unusual pain at the puncture site . Numbness, tingling, weakness in the affected arm. If your arm becomes cold and pale. If you have changes of vision, slurred speech or one-sided weakness. Who do I contact if I need to speak with someone? During Business Hours: [facility] Cardiology Office at the [facility]: [phone] (Wednesday-Wednesday) [place]:[phone] (Wednesday-Wednesday) [place]: [phone] (Wednesday-Wednesday) [place]: [phone] (Wednesday and ) [place]: [phone] (Wednesday-Wednesday) [facility] [address]: [phone] (Wednesday, Wednesday and Wednesday) [place]:[phone] (Wednesday, Wednesday and Wednesday) Nights and Weekends [facility] Cardiology Office at the [facility]: [phone] Thisinformation is meant to serve as a resource to you and your family. It i s not meant to be all inclusive. The members of the [facility]in [facility] at [facility] Cardiology, , will be glad to answe r any questions you may have about this booklet or your procedure. documented in this encounter Medications at Time of Discharge Start Date End Date Medication Sig Dispensed Refills acetaminophen (TYLENOL) Take 325 mg 0 325 mg tablet by mouth every 4 hours as needed for Pain. 01/16/2019 albuterol (PROAIR HFA, Inhale two 3 Inhaler 3 VENTOLIN HFA, OR puffs by PROVENTIL HFA) 90 mouth into mcg/actuation inhaler the lungs every 4 hours as needed for Wheezing or Shortness of Breath. Shake well before use. amLODIPine (NORVASC) 10 Take 10 mg by 0 mg tablet mouth daily. 08/07/2021 aspirin EC 81 mg tablet Take one 90 tablet 1 tablet by mouth daily. Take with food. 12/25/2019 atorvastatin (LIPITOR) 80 TAKE 1 TABLET 90 tablet 3 mg tablet BY MOUTH DAILY 06/03/2021 budesonide (UCERIS) 9 mg Take 9 mg by 0 ER tablet mouth daily. 05/16/2019 carvedilol (COREG) 6.25 Take one 180 tablet 3 mg tablet tablet by mouth twice daily with meals. Take with food. clopiDOGrel (PLAVIX) 75 Take 75 mg by 0 mg tablet mouth daily. 05/08/2021 furosemide (LASIX) 20 mg Take 20 mg by 0 tablet mouth daily. 09/21/2016 guaiFENesin LA (MUCINEX) Take 2 Tabs 180 Tab 0 600 mg tablet by mouth twice daily. 04/25/2020 isosorbide mononitrate SR TAKE 1 TABLET 90 tablet 0 (IMDUR) 30 mg tablet BY MOUTH DAILY 02/29/2020 losartan (COZAAR) 100 mg TAKE 1 TABLET 90 tablet 1 tablet BY MOUTH DAILY 09/21/2016 nitroglycerin (NITROSTAT) Place 1 Tab 25 Tab 3 0.4 mg tablet under tongue every 5 minutes as needed for Chest Pain. Max of 3 tablets, call 911. 07/30/2021 ondansetron (ZOFRAN ODT) 0 4 mg rapid dissolve tablet 10/30/[address] Take 1 Tab by 180 Tab 3 (PROTONIX) 40 mg tablet mouth twice daily. 05/08/2021 potassium chloride Take 10 mEq 0 (KLOR-CON 10) 10 mEq by mouth tablet daily. 06/05/2021 sucralfate (CARAFATE) 1 TAKE 1 TABLET 0 gram tablet BY MOUTH BEFORE MEAL(S) AND AT BEDTIME 09/21/2016 vitamins, multi Take 1 Tab by 30 Tab 3 w/minerals 27-0.4 mg tab mouth daily. documented as of this encounter Ordered Prescriptions Start Date End Date Prescription Sig Dispensed Refills 08/07/2021 aspirin EC 81 mg tablet Take one 90 tablet 1 tablet by mouth daily. Take with food. documented in this encounter Discharge Disposition Code Departure Means Destination Disposition Wheelchair Home or Self Care documented in this encounter Progress Notes * Brittni Acosta RN - 08/07/2021 10:07 AM CDT Patient discharged to home with all belongings. Discharge instructions, med rec onciliation and home wound care instructions given and explained to patient and family both verbally and written. No complaints of pain or discomfort. Left r adial puncture site remains clean, dry, and intact with no evidence of a hemato ma after ambulation. Patient escorted to lobby via RN. Patient to follow up [facility] ([facility]) or on-call physician with any additional questio ns or concerns. All contact numbers provided. Patient and family acceptant of DC instuctions and report understanding to all information. * Maryse Lin, SHIP SCALER-STUDENT SERVICES REP - 08/07/2021 7:51 AM CDT Post Cardiac Procedure Progress Note Name: Mikki Mcwilliams : 1955 Age: 66 y.o. Admit Date: 08/06/2021 Discharge Date: 08/07/21 Attending Physician: Dr. Geni Ascencio MD Service: Med-Cardiovascular Reason for hospitalization: cardiac catheterization Hospital Problems Principal Problem: Coronary artery disease due to lipid rich plaque Active Problems: PAD (peripheral artery disease) (HCC) CAD (coronary artery disease), sokaogon coronary artery Essential hypertension Admission Lab/Radiology studies notable for: Hematology: Lab Results Component Value Date HGB 8.3 08/07/2021 HCT 26.5 08/07/2021 PLTCT 208 08/07/2021 WBC 9.0 08/07/2021 NEUT 78 05/16/2019 ANC 6.40 05/16/2019 LYMPH 20 05/10/2019 ALC 1.10 05/16/2019 MAREK 7 05/16/2019 AMC 0.60 05/16/2019 ABC 0.00 05/16/2019 MCV 80.7 08/07/2021 MCHC 31.1 08/07/2021 MPV 9.3 08/07/2021 RDW 19.2 08/07/2021 , General Chemistry: Lab Results Component Value Date NA 138 08/07/2021 K 4.2 08/07/2021 CL 107 08/07/2021 GAP 12 08/07/2021 BUN 14 08/07/2021 CR 0.84 08/07/2021 GLU 95 08/07/2021 GLU 101 03/03/2004 CA 8.8 08/07/2021 ALBUMIN 3.9 05/10/2019 LACTIC 0.8 05/16/2019 MG 2.2 05/13/2019 TOTBILI 0.7 05/10/2019 and Lipid Profile: Lab Results Component Value Date CHOL 102 07/23/2021 TRIG 76 07/23/2021 HDL 41 07/23/2021 LDL 39 07/23/2021 VLDL 15 07/23/2021 Brief Hospital Course: Mikki Mcwilliams is a 66 y.o. with history of extensive vascular disease. She colby s a known history of an occluded right internal carotid artery with a severe madison nosis in the left carotid artery. Additionally, she has severely abnormal ankl e-brachial indices with exertional claudication. She has COPD and is currently on 3 L of oxygen at home. She has been having some exertional chest discomfort and has had to take nitroglycerin at home. This prompted her to be evaluated by her ad operations intern in [facility]. They attempted a cardiac catheteriz ation on July 23 and were unable to access either side. There were multipl e attempts at the right femoral left femoral and right radial artery without suc cess. After multiple attempts, it was elected to continue with medical therapy and referred here for possible cardiac catheterization. Cardiac catheterization was done on 08/06/21 and revealed subtotal occlusion of p roximal first obtuse marginal vessel, status post percutaneous intervention with placement of a 2.0 x 30 mm Resolute [place] drug-eluting stent, which was post dil ated with a 3.0 NC balloon. 70% to 80% stenosis in mid first obtuse marginal ve ssel, status post percutaneous intervention with placement of a 2.5 x 12 mm Reso lute Brad drug-eluting stent. Residual 80% calcified stenosis in mid right arlen nary artery, not intervened at this time due to contrast constraints. Moderate nonobstructive disease in left anterior descending territory. She was also noted to have significant RCA disease which will be medically manag ed. If she continues to have chest pain we will consider bringing her back at a later date for consideration of RCA intervention. She will follow up with her [facility] ad operations intern in one month. She was monitored overnight without left radi al access site complications. She was continued on Plavix and initiated on aspi rin 81mg daily. Her post procedure course was uncomplicated and she was discharged home in stabl e condition Upon discharge the patient and family were given post procedure instructions/res trictions as well as written instructions ( see Discharge instructions). _ Discharge Plan/Recommendations: Follow up: 1 month with her primary ad operations intern Dr. Cassia MD DAPT/Anticoagulation: Start Aspirin 81mg daily indefinitely and continue Plavix 75 mg daily for 6-12 months. We discussed the importance of dual antiplatelet therapy without interruption. A prescription was sent to the patient's pharmacy and the patient was counseled, if the medication is too expensive, to pay for at least 5 days worth of the medi cation and to call the MAC office immediately for further instructions. Cardiac Rehab: Patient was seen by the Cardiac Rehab team prior to discharge Disease Prevention: Lipid management: Fasting lipid profile as above showing and LDL of 39. She wi ll continue high intensity atorvastatin for LDL goal less than 70. Hypertension: BP controlled on current regimen Diabetes: Denies Tobacco: Social History Tobacco Use Smoking status: Former Smoker Packs/day: 2.00 Years: 44.00 Pack years: 88.00 Types: Cigarettes Quit date: 09/03/2016 Years since quittin.9 Smokeless tobacco: Never Used Substance Use Topics Alcohol use: No Alcohol/week: 0.0 standard drinks Drug use: No Obesity: There is no height or weight on file to calculate BMI. Heart healthy d iet, exercise and weight loss encouraged Physical Exam: left wrist puncture site D/I without bleeding or hematoma. Extre mity pink, warm and dry. There is no loss of pulse in affected extremity. Patien t ambulatory in the halls, without difficulty, prior to discharge. BP (!) 156/52 | Pulse 65 | Temp 36.6 C (97.8 F) | SpO2 100% Consult: None Significant Diagnostic Studies and Procedures: 08/06/2021 Coronary angiogram FINAL IMPRESSION: 1. Subtotal occlusion of proximal first obtuse marginal vessel, status post perc utaneous intervention with placement of a 2.0 x 30 mm Resolute [place] drug-eluting stent, which was post dilated with a 3.0 NC balloon. 2. 70% to 80% stenosis in mid first obtuse marginal vessel, status post percutan eous intervention with placement of a 2.5 x 12 mm Resolute [place] drug-eluting madison nt. 3. Residual 80% calcified stenosis in mid right coronary artery, not intervened at this time due to contrast constraints. 4. Moderate nonobstructive disease in left anterior descending territory. RECOMMENDATIONS: 1. Dual antiplatelet therapy with aspirin and Plavix. 2. If patient has recurrent chest discomfort, we will consider intervention of r esidual RCA stenosis. 3. Routine post PCI care. 4. Cardiac rehab evaluation prior to discharge. Patient instructions/medications: Cardiac Diet Limiting unhealthy fats and cholesterol is the most important step you can take in reducing your risk for cardiovascular disease. Unhealthy fats include satur ated and trans fats. Monitor your sodium and cholesterol intake. Restrict your sodium to 2g (grams) or 2000mg (milligrams) daily, and your cholesterol to 200mg daily. If you have questions regarding your diet at home, you may contact a dietitian crispin novoa . Report These Signs and Symptoms Please contact your doctor if you have any of the following symptoms: Chest adolph n, shortness of breath, lightheadedness, dizziness, near fainting, palpitations, abd pain, back pain, or bleeding or Arm or hand numbness, tingling, pain, bleed ing or loss of pulse. Risk Reduction Plan Cardiac Event Personal Risk Factor Reduction Plan Take this sheet to your physician to show treatment recommendations Mikki Mcwilliams Admission Date: 08/06/2021 LOS: @LOS@ Blood Pressure Risk Goal: Keep blood pressure below 130/80 Your Numbers: BP Readings from Last 1 Encounters: 08/07/21 : (!) 156/52 Plan: High blood pressure is the single most important risk factor for cardiac e vents because it's the #1 cause of cardiac events. Take medication as prescribe d and monitor your blood pressure. Abnormal lipids (fats in blood) Risk Goal: Total Cholesterol: <200 LDL (bad cholesterol): primary prevention <100 LDL (bad cholesterol): secondary prevention < 70 HDL ("good" cholesterol): >40 for men, >50 for women Triglycerides: <150 Your Numbers: Cholesterol Date Value Ref Range Status 07/23/2021 102 Final LDL Date Value Ref Range Status 07/23/2021 39 Final HDL Date Value Ref Range Status 07/23/2021 41 Final Triglycerides Date Value Ref Range Status 07/23/2021 76 Final Plan: Diets high in saturated fat, trans fat and cholesterol can raise blood cho lesterol levels increasing your risk of having a cardiac event. Take medication as prescribed and eat a heart healthy, low sodium diet. Smoking Risk Goals: If you smoke, STOP! Plan: Smoking DOUBLES your risk of having a cardiac event. Quitting can greatly reduce your risk. To register for smoking cessation program call [phone] or visit www.smokePidefarmaee.gov Diabetes Risk Goal: Non-diabetic: Below 5.7% Goal for diabetic: Less than 7% Your Numbers: Hemoglobin A1C Date Value Ref Range Status 09/11/2016 5.8 4.0 - 6.0 % Final Comment: The ADA recommends that most patients with type 1 and type 2 diabetes maintain an A1c level <7%. Plan: If you have diabetes, even if treated, you are at an increased risk of hav ing a cardiac event. Alcohol Use Risk Goal: Alcohol use can lead to a cardiac event. Plan: For men, limit intake to no more than 2 drinks per day. For women, limit intake to no more than one drink per day. Weight Management Risk Goal: Healthy: BMI is 18.5 to 24.9 Overweight: BMI is 25 to 29.9 Obese: BMI is 30 or higher Morbid Obesity: BMI [...] Your Numbers: Your Plan: If you have questions about your diet after you go home, you can call crispin dunham at [phone] Physical Activity Risk Goal: Patients should have approval by a physician prior to beginning an exercis e program. Plan: Try to get at least 30 minutes of moderate physical activity five days a w te-moak or 20 minutes of vigorous physical activity three days a week with your doct or's approval. To the Neurology and the NeuroSurg Discharge order sets set add a new order in t he education section titled "Risk Reduction Plan", in the comments section add t he following (default select this new order for neuro and neuro surg and ensure this information is added to the AVS). Questions About Your Stay For questions or concerns regarding your hospital stay: - DURING BUSINESS HOURS (8:00 AM - 4:30 PM): Call [phone] and asked to be transferred to your discharge attending michael narvaez. - AFTER BUSINESS HOURS (4:30 PM - 8:00 AM, on weekends, or holidays): Call [phone] and ask the stone spreader operator to page the on-call doctor for the discha rge attending physician. Discharging attending physician: GENI ASCENCIO [[id number]] Procedure Specific Activity *May return to work/school in 2 days. *May shower after discharge. *NO lifting, pushing or pulling more than 5 pounds for one week to affected hand . You may use your wrist splint for a reminder! *NO strenuous activity for 1 week. *NO driving for 2 days. *NO baths or swimming for 1 week. *NO sexual activity for 1 week. Incision Care *Call if there is an increase in pain, swelling, or redness. *DO NOT soak incision in water. *NO tub baths, hot tubs, or swimming. *You may shower after discharge. Cardiac Rehab Your physician has referred you to outpatient cardiac rehab. Contact [facility] Cardiac Rehab Department at [phone] to schedule an appointment. Current Discharge Medication List START taking these medications Details aspirin EC 81 mg tablet Take one tablet by mouth daily. Take with food. Qty: 90 tablet, Refills: 1 PRESCRIPTION TYPE: OTC CONTINUE these medications which have NOT CHANGED Details acetaminophen (TYLENOL) 325 mg tablet Take 325 mg by mouth every 4 hours as need ed for Pain. PRESCRIPTION TYPE: Historical Med albuterol (PROAIR HFA, VENTOLIN HFA, OR PROVENTIL HFA) 90 mcg/actuation inhaler Inhale two puffs by mouth into the lungs every 4 hours as needed for Wheezing or Shortness of Breath. Shake well before use. Qty: 3 Inhaler, Refills: 3 PRESCRIPTION TYPE: Normal amLODIPine (NORVASC) 10 mg tablet Take 10 mg by mouth daily. PRESCRIPTION TYPE: Historical Med atorvastatin (LIPITOR) 80 mg tablet TAKE 1 TABLET BY MOUTH DAILY Qty: 90 tablet, Refills: 3 PRESCRIPTION TYPE: Normal budesonide (UCERIS) 9 mg ER tablet Take 9 mg by mouth daily. PRESCRIPTION TYPE: Historical Med carvedilol (COREG) 6.25 mg tablet Take one tablet by mouth twice daily with meal s. Take with food. Qty: 180 tablet, Refills: 3 PRESCRIPTION TYPE: Normal clopiDOGrel (PLAVIX) 75 mg tablet Take 75 mg by mouth daily. PRESCRIPTION TYPE: Historical Med furosemide (LASIX) 20 mg tablet Take 20 mg by mouth daily. PRESCRIPTION TYPE: Historical Med guaiFENesin LA (MUCINEX) 600 mg tablet Take 2 Tabs by mouth twice daily. Qty: 180 Tab, Refills: 0 PRESCRIPTION TYPE: Normal isosorbide mononitrate SR (IMDUR) 30 mg tablet TAKE 1 TABLET BY MOUTH DAILY Qty: 90 tablet, Refills: 0 PRESCRIPTION TYPE: Normal losartan (COZAAR) 100 mg tablet TAKE 1 TABLET BY MOUTH DAILY Qty: 90 tablet, Refills: 1 PRESCRIPTION TYPE: Normal nitroglycerin (NITROSTAT) 0.[address] 1 Tab under tongue every 5 minutes as needed for Chest Pain. Max of 3 tablets, call 911. Qty: 25 Tab, Refills: 3 PRESCRIPTION TYPE: Normal ondansetron (ZOFRAN ODT) 4 mg rapid dissolve tablet PRESCRIPTION TYPE: Historical Med pantoprazole DR (PROTONIX) 40 mg tablet Take 1 Tab by mouth twice daily. Qty: 180 Tab, Refills: 3 PRESCRIPTION TYPE: Normal potassium chloride (KLOR-CON 10) 10 mEq tablet Take 10 mEq by mouth daily. PRESCRIPTION TYPE: Historical Med sucralfate (CARAFATE) 1 gram tablet TAKE 1 TABLET BY MOUTH BEFORE MEAL(S) AND AT BEDTIME PRESCRIPTION TYPE: Historical Med vitamins, multi w/minerals 27-0.4 mg tab Take 1 Tab by mouth daily. Qty: 30 Tab, Refills: 3 PRESCRIPTION TYPE: Normal Signed: ROYAL Mc 08/07/2021 cc: Primary Care Physician: Nereida Campbell Referring physicians: Additional provider(s): T * Alvin Coles RN - 08/07/2021 6:55 AM CDT The patient said that she would be unable to do Outpatient Cardiac Rehabilitatio n at this time. The only transportation that is available to her is her who has "slight dementia" and only drives her to the store. I gave her our contact phone number and asked her to call us to arrange it, if h er circumstances change. * Alvin Coles RN - 08/07/2021 6:53 AM CDT CARDIOPULMONARY REHABILITATION INPATIENT ASSESSMENT Cardiac Rehabilitation Staff: Ovidio Coles RN Discharge Date: Demographics Pre-admit Dx: Date of Admission: 08/06/2021 [facility] : 1955 Insurance: Primary: Medicare [employer] Secondary: [employer] Address: [address] [place] [id number] Patient (home) Marital Status: Occupation: Retired ED Contact: Alice Mcwilliams ED Phone #: [phone] CTS: ZENY Sizing Machine Operator: Sonu Cardiac Procedures and Events PCI: 08/06/21 Risk Factors BP: (!) 156/52 Medical History has a past medical history of Alcoholic cirrhosis (HCC) (09/11/2016), CAD (arlen nary artery disease), sokaogon coronary artery (09/10/2016), Carotid artery stenos is (09/10/2016), Chronic diastolic (congestive) heart failure (HCC) (09/11/2016) , Chronic respiratory failure (HCC) (09/10/2016), Cirrhosis of liver (HCC) (1997 ), COPD (chronic obstructive pulmonary disease) (HCC) (09/11/2016), Essential hy pertension (09/11/2016), Gastroesophageal reflux disease with esophagitis (2015), Hepatitis A (1997), History of alcohol abuse, HTN (hypertension), Mitral regurgitation (09/10/2016), PAD (peripheral artery disease) (HCC), Stroke (HCC), Tobacco abuse (09/11/2016), and Tricuspid regurgitation (09/10/2016). Labs Cholesterol Date Value Ref Range Status 07/23/2021 102 Final Triglycerides Date Value Ref Range Status 07/23/2021 76 Final HDL Date Value Ref Range Status 07/23/2021 41 Final LDL Date Value Ref Range Status 07/23/2021 39 Final Hemoglobin A1C Date Value Ref Range Status 09/11/2016 5.8 4.0 - 6.0 % Final Comment: The ADA recommends that most patients with type 1 and type 2 diabetes maintain an A1c level <7%. Troponin-I Date Value Ref Range Status 05/10/2019 0.08 (H) 0.0 - 0.05 NG/ML Final Heart Resource Manual Given: 08/07/21 Teaching Completed: 08/07/21 Outpatient Cardiopulmonary Rehabilitation Outpatient [facility] Rehab: No Referral Faxed to: Date Faxed: Location: If [facility], Sent to Staff: Why?: No Transportation (See Progress Note) Alvin Coles RN 08/07/2021 * Alvin Coles RN - 08/07/2021 6:53 AM CDT 08/07/21 0600 Current Cardiac Procedures/Events PCI 08/06/21 Education Person Instructed Patient Patient Barriers To Learning None Noted Interventions/Teaching Methods Verbal Instructions;Written Materials Provided Patient Response Verbalized Understanding Topics Angina and NTG use;Reinforcement of Medications - NTG;Reinforcement of Me dications - Anti-Platelet;Reasons to call your doctor;Risk Factor Management - B lood Pressure;Risk Factor Management - Diabetes;Risk Factor Management - Smoking ;Risk Factor Management - Cholesterol;Risk Factor Management - Stress;Risk Facto r Management - Physical Inactivity;Home Walking Guidelines;Outpatient Cardiac Re hab Referral Information Teaching Completed 08/07/21 Heart Resource Manual Given 08/07/21 Outpatient Cardiopulmonary Rehab OPCR No Why? No Transportation (See Progress Note) * Rambo Sharma RT - 08/06/2021 10:51 PM CDT RT Adult Assessment Note NAME:Mikki Mcwilliams :1955 AGE: 66 y.o. ADMISSION DATE: 08/06/2021 DAYS ADMITTED: LOS: 0 days RT Treatment Plan: Protocol Plan: Medications Albuterol: MDI PRN Protocol Plan: Procedures PAP: Place a nursing order for "IS Q1h While Awake" for any of Lung Expansion in dicators Oxygen/Humidity: O2 to keep SpO2 > 95%, if less than 24 hours post op, then keep SpO2 greater than 92% SpO2: BID & PRN Additional Comments: Impressions of the patient: Patient resting comfortably, no indication of increa sed work of breathing or shortness of breath. Intervention(s)/outcome(s): None at this time. Patient education that was completed: Importance of deep breathing and effective cough for prevention of acquired respiratory illness during admission. Recommendations to the care team: Promote ambulation. Vital Signs: Pulse: 70 RR: 14 PER MINUTE SpO2: 100 % O2 Device: High flow nasal cannula Liter Flow: 5 Lpm O2%: Breath Sounds: clear/dec Respiratory Effort: Non-Labored * Leora Nj MBBS - 08/06/2021 8:38 PM CDT Patient was seen and examined. Patient denies any chest pain and left radial acc ess site appears good without oozing or hematoma. Post procedure EKG shows NSR w ith ST changes secondary to LVH * Osmani Tovar RN - 08/06/2021 8:28 AM CDT Patient arrived on unit via wheelchair accompanied by RN. Patient transferred to the chair with assistance. Frailty score equals 8 Assessment completed, refer to flowsheet for details. Orders released, reviewed, and implemented as appropri ate. Oriented to surroundings, call light within reach. Plan of care reviewed. Will continue to monitor and assess. * Hallie Chou RN - 08/05/2021 9:14 AM CDT Cardiovascular Labs Scheduling Checklist 1. Date of procedure:08/06 2. Arrival time:0730 ov/cvm 3. Patient instructed NPO after MN; clear liquids until: 0700 4. Instructed to check-in at the [facility] registration desk and bring phot o id, insurance cards and a current list of home medications. Pack an overnight bag in the event you are admitted overnight:n 5. If you have a history of sleep apnea and use a C-Pap or Bi-Pap machine, pleas e bring it with you to the hospital:n 6. Have a local bulk driver available upon discharge as you may not be cleared to drive for 24 or 48 hours post procedure. (exception is RHC/biopsy patient with internal j ugular approach not receiving sedation): y 7. If the patient's language preference is other than Macedonian, please indicated [place] language and need for lay health advocate: n 8. Patient instructed to drink 64 oz water the day before their procedure if anahy licable and not contraindicated: y 9. Patient instructed no caffeine for 24 hours before procedure: y 10. Pre-procedure medications reviewed: y Hold the following Medications: Continue to take the followin. General Anesthesia/MAC and/or PVC ablations: Type and Cross required: 12. Contrast allergy with need for contrast allergy prophylaxis: 13. Patient instructed to bath with antibacterial soap or surgical scrub:y 14. List all same day pre-procedure requirements, i.e. Labs/H&P/EK. List any same day pre-procedure appointments:0730 ov/cvm 16. List any isolation precautions and organism:n 17. List any special considerations: n 18. Patient instructed to prepare for delays as there may be urgent or emergent cases: y 19. Updated visitor guidelines reviewed (1 visitor allowed in [facility]: must wear a mask, Not permitted to stay the night and must leave by 1800):y 20. Patient acknowledges understanding of pre-procedure instructions: y bruce piña [place] [facility] documented in this encounter H&P Notes * Maryse Lin APRN-PAULINO - 08/06/2021 9:10 AM CDT Images from the original note were not included. Patient presents for procedure. Please see History and Physical copied below fro m date of service Maryse Lin, ANAND Pager [phone] Geni Ascencio MD Interventional Cardiology Coronary artery disease of [place] artery of [place] he art with stable angina pectoris (HCC) +3 more Dx History And Physical ; Referred by Cj Antony MD Reason for Visit Progress Notes Geni Ascencio MD (Physician) Interventional Cardiology Creation Time: 08/06/21 0714 Signed Date of Service: 08/06/2021 Mikki Mcwilliams is a 66 y.o. female. IK Kaye is a 65-year-old female with a history of extensive vascular disease. She has a known history of an occluded right internal carotid artery with a severe s tenosis in the left carotid artery. Additionally, she has severely abnormal ank le-brachial indices with exertional claudication. She has COPD and is currently on 3 L of oxygen at home. She has been having some exertional chest discomfort and has had to take nitroglycerin at home. This prompted her to be evaluated b y her ad operations intern in [facility]. They attempted a cardiac catheterizati on on July 23 and were unable to access either side. There were multiple at tempts at the right femoral left femoral and right radial artery without success . After multiple attempts, it was elected to continue with medical therapy and referred here for possible cardiac catheterization. Today in the office, she st ates that she has been having some exertional symptoms and had to take nitroglyc iman over the weekend. These occur at intermittent times and are not necessaril y predictable but do respond to nitroglycerin. Her recent office visit with Dr. Lei has also led to recommendation of medical management. Given the extent o f her vascular disease and underlying comorbidities optimizing medical managemen t has been the primary recommendation. Given her more unstable sounding symptom s, I do agree with attempting repeat cardiac catheterization. On examination to day, she does have a faint left radial pulse but otherwise has nonpalpable pulse s in the common femoral and right radial distributions. We discussed the risks of the procedure which are most certainly increased from a typical diagnostic ca rdiac catheterization. She agrees to proceed with a repeat attempt. Vitals: 08/06/21 0712 BP: 124/72 BP Source: Arm, Left Upper Patient Position: Sitting Pulse: 59 Weight: 59 kg (130 lb) Height: 1.651 m (5' 5") PainSc: Zero Body mass index is 21.63 kg/m. 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 LVEF ~=55-60%, Grade II (moderate) left ventricular diastolic dysfunction. Elevated left atrial pres sure, Mild concentric LV hypertrophy, Moderately elevated central venous pressur e, Moderate mitral regurgitation, Mild to moderate tricuspid regurgitation, Phyllis mated Peak Systolic PA Pressure = 45 mmHg COPD (chronic obstructive pulmonary disease) ([facility]) 09/11/2016 Em[address]se[address] noted on Chest CT. Inhalers albuterol Results for MIKKI MCWILLIAMS ( ) as of 01/16/2019 08:31 Ref. Range 10/30/2016 10:51 FVC-Pre Latest Units: L 3.03 FVC-%Pred-pre Latest Units: % 92 FEV1-Pre Latest Units: L 2.48 FEV1-%Pred-Pre Latest Units: % 98 OCU2251-%Pred-Pre Latest Units: % 112 RVPleth-Pre Latest Units: L 1.98 RVPleth-%Pred-Pre Latest Units: % 98 TLCPleth-Pre Latest Units: L 4.76 TLCPleth-%Pred-Pre Latest Units: % 94 DLCOunc-Pre Latest Units: ml/min/mmHg 13.26 DLCOunc-%Pred-Pre Latest Units: % 61 DLVA-Pred Latest Units: ml/min/mmHg/L 4.42 DLVA-Pre Latest Units: ml/min/mmHg/L 2.81 DLVA-%Pred-Pre Latest Units: % 63 DLVA-SD Latest Units: ml/min/mmHg/L 0.80 DLVA-LLN Latest Units: ml/min/mmHg/L 2.82 DLVA-ULN Latest Units: ml/min/mmHg/L 6.02 DLCOunc-LLN Latest Units: ml/min/mmHg 13.96 DLCOunc-Pred Latest Units: ml/min/mmHg 21.46 ERVSVC-Pre Latest Units: L 0.67 [id number] Latest Units: L/sec 2.58 ICSVC-Pre Latest Units: L 2.45 PEF-Pre Latest Units: L/min 337.5 TGVPleth-Pre Latest Units: L 2.70 VCSVC-Pre Latest Units: L 3.12 DLCOunc-SD Latest Units: ml/min/mmHg 3.75 DLCOunc-ULN Latest Units: ml/min/mmHg 28.96 <=""> Immunizations Flu Vaccine =>65 YO High-Dose (PF) 10/05/2017 Pneumococcal Vaccine (23-Sherri Adult) 10/08/2016 Pneumococcal Vaccine(13-Sherri Peds/immunocompromised adult) 10/05/2017 Former Smoker; Quit date: 09/03/2016; 2 packs/day for 44 years (88 pk-yrs); Type s: Cigarettes Essential hypertension 09/11/2016 Alcoholic cirrhosis ([facility]) 09/11/2016 Tobacco abuse 09/11/2016 Ulcer of left lower leg ([facility]) 09/11/2016 CAD (coronary artery disease), [place] coronary artery 09/10/2016 09/09/16: Cath by Dr. Foss: 70% left main, 40-50% CFX 09/18/16: PCI of the left main proximal & ostium with a 4.0 x 12 Xience stent. PCI of the mid LAD with a 2.5 x 23 Xience stent. 10-08-16-Cath-Stents widely patent in the left main and mid LAD NSTEMI (non-ST elevated myocardial infarction) ([facility]) 09/10/2016 Hyperglycemia 09/10/2016 Chronic respiratory failure ([facility]) 09/10/2016 Carotid artery stenosis 09/10/2016 09/09/16: Carotid ultrasound shows critical right internal carotid stenosi s 05-31-18-Carotid doppler-The right proximal and mid internal carotid artery has t urbulent flow with elevated velocities suggesting a >70% stenosis. The left proximal and mid internal carotid artery has elevated velocities sugges ting a 50-79% stenosis, less than 70% based on ratio criteria. The right and left subclavian arteries have elevated velocities suggesting a > 50% stenosis. Mitral regurgitation 09/10/2016 Tricuspid regurgitation 09/10/2016 History of alcohol abuse 09/09/2016 C. difficile enteritis 09/08/2016 Rectal prolapse 09/08/2016 PAD (peripheral artery disease) ([facility]) 09/04/2016 09/09/16: Cath and AARO by Dr. Foss: AARO and renal angio: 50% ostial right renal artery, 80% ostial left renal; 90% left common femoral, 70% bilateral iliacs, 100% left internal iliac, 90% left ex ternal iliac, sub-total right external iliac, 40% mid-Right SFA, Review of Systems Constitutional: Positive for malaise/fatigue. HENT: Negative. Eyes: Negative. Cardiovascular: Positive for dyspnea on exertion. Respiratory: Positive for shortness of breath. Endocrine: Negative. Hematologic/Lymphatic: Negative. Skin: Negative. Musculoskeletal: Negative. Gastrointestinal: Negative. Genitourinary: Negative. Neurological: Negative. Psychiatric/Behavioral: Negative. Allergic/Immunologic: Negative. All other systems reviewed and are negative. Physical Exam Physical Exam GEN: alert and oriented, no acute distress HEENT: unremarkable, EOMI, PERRL CHEST: Clear to auscultation bilaterally without focal rales, wheezes or rhonchi CV: Reg rhythm, nml rate; nml S1 & S2, no S3 or S4; no rub; 3/6 REKHA LUSB ABD: soft, nontender, BS+, no masses or bruits, no organomegaly EXT: no c/c/e, no distal pulses in the right and left legs - faint left radial p ulse NEURO: nonfocal Mood and Affect: appropriate Cardiovascular Studies ECG - NSR, LVH with repol, ST/T changes Problems Addressed Today Encounter Diagnoses Name Primary? Coronary artery disease of [place] artery of [place] heart with stable angina pectoris ([facility]) Yes PAD (peripheral artery disease) ([facility]) Nonrheumatic mitral valve regurgitation Chronic systolic heart failure ([facility]) Assessment and Plan 1. Coronary artery disease-her last cardiac catheterization was in 2019 which re vealed diffuse disease involving the left anterior descending artery of 30 to 40 %. Her circumflex had a 75% stenosis in the proximal portion of the first obtus e marginal branch and there was diffuse calcification of the right coronary raciel ry. Given her symptoms, I suspect that she has had progression of her coronary artery disease. She has been managed very well and is currently on atorvastatin 80 mg daily. I will plan to add a LP(a) to her blood work today. I did have a chance to review her recent echocardiogram from May 062020. Her ejection fraction was 35 to 40% with moderate diffuse hypokinesis. She had severe mitral insufficiency which may be contributing to her symptoms as well. 2. Severe mitral insufficiency-I suspect this is functional in nature. I would like to review her echocardiographic images. I suspect if we are not able to pr oceed with coronary angiography and given her comorbidities she may not be a goo d candidate for options of her mitral valve. We will plan to repeat an attempt at her cardiac catheterization with primary ac cess route of the left radial artery. We will keep you informed this results fo r upcoming cardiac catheterization. If she does have significant coronary disea se, the plan would be to revascularize as possible. Thank you for allowing us t o participate in her care. Current Medications (including today's revisions) acetaminophen (TYLENOL) 325 mg tablet Take 325 mg by mouth every 4 hours as needed for Pain. albuterol (PROAIR HFA, VENTOLIN HFA, OR PROVENTIL HFA) 90 mcg/actuation inha ler Inhale two puffs by mouth into the lungs every 4 hours as needed for Wheezin g or Shortness of Breath. Shake well before use. amLODIPine (NORVASC) 10 mg tablet Take 10 mg by mouth daily. atorvastatin (LIPITOR) 80 mg tablet TAKE 1 TABLET BY MOUTH DAILY budesonide (UCERIS) 9 mg ER tablet Take 9 mg by mouth daily. carvedilol (COREG) 6.25 mg tablet Take one tablet by mouth twice daily with meals. Take with food. clopiDOGrel (PLAVIX) 75 mg tablet Take 75 mg by mouth daily. furosemide (LASIX) 20 mg tablet Take 20 mg by mouth daily. guaiFENesin LA (MUCINEX) 600 mg tablet Take 2 Tabs by mouth twice daily. (Oscar hahn taking differently: Take 600 mg by mouth daily.) isosorbide mononitrate SR (IMDUR) 30 mg tablet TAKE 1 TABLET BY MOUTH DAILY losartan (COZAAR) 100 mg tablet TAKE 1 TABLET BY MOUTH DAILY nitroglycerin (NITROSTAT) 0.[address] 1 Tab under tongue every 5 min utes as needed for Chest Pain. Max of 3 tablets, call 911. ondansetron (ZOFRAN ODT) 4 mg rapid dissolve tablet pantoprazole DR (PROTONIX) 40 mg tablet Take 1 Tab by mouth twice daily. potassium chloride (KLOR-CON 10) 10 mEq tablet Take 10 mEq by mouth daily. sucralfate (CARAFATE) 1 gram tablet TAKE 1 TABLET BY MOUTH BEFORE MEAL(S) AN D AT BEDTIME vitamins, multi w/minerals 27-0.4 mg tab Take 1 Tab by mouth daily. No Known Allergies Social History Socioeconomic History Marital status: Spouse name: Not on file Number of children: Not on file Years of education: Not on file Highest education level: Not on file Occupational History Not on file Tobacco Use Smoking status: Former Smoker Packs/day: 2.00 Years: 44.00 Pack years: 88.00 Types: Cigarettes Quit date: 09/03/2016 Years since quittin.9 Smokeless tobacco: Never Used Substance and Sexual Activity Alcohol use: No Alcohol/week: 0.0 standard drinks Drug use: No Sexual activity: Not on file Other Topics Concern Not on file Social History Narrative Not on file Surgical History: Procedure Laterality Date Coronary Angiography N/A 09/09/2016 Performed by Cath, Physician at [facility] Left Heart Catheterization Left 10/08/2016 Performed by Cath, Physician at [facility] Coronary Angiography N/A 10/08/2016 Performed by Cath, Physician at [facility] ESOPHAGOGASTRODUODENOSCOPY WITH BIOPSY - FLEXIBLE N/A 05/10/2019 Performed by Edwin Church MD at [facility] ENDO GASTROINTESTINAL TRACT IMAGING ESOPHAGUS THROUGH ILEUM - INTRALUMINAL N/A Performed by Edwin Church MD at [facility] ANGIOGRAPHY CORONARY ARTERY WITH RIGHT AND LEFT HEART CATHETERIZATION N/A Performed by Cath, Physician at [facility] POSSIBLE PERCUTANEOUS CORONARY STENT PLACEMENT WITH ANGIOPLASTY N/A 9 Performed by Cath, Physician at [facility] CHOLECYSTECTOMY Family History Problem Relation Age of Onset Heart Failure Mother documented in this encounter Procedure Notes * Leora Nj MBBS - 08/06/2021 6:47 PM CDT Associated Order(s): CARDIAC CATH REPORT [facility] CARDIAC CATHETERIZATION REPORT Page 2 MIKKI Huynh : 1955 #: [id number] MR #/Billing ID #: [id number] / [id number] DATE: 08/06/2021 ROUND KILN DRAWER: Geni Ascencio MD DICTATING PROVIDER: Leora Nj MD REFERRING PHYSICIAN: Geni Ascencio MD BOX CAR WASHER: Dr. Geni Ascencio INDICATION FOR PROCEDURE: Ms. Mcwilliams is a 66-year-old female with history of CAD , status post PCI of left main and mid LAD in 2016, peripheral vascular disease, severe mitral regurgitation, carotid artery disease, COPD, GERD, who was referr ed for cardiac catheterization with possible percutaneous coronary intervention due to recurrent exertional chest discomfort. PROCEDURES: 1. Left heart catheterization. 2. Coronary angiography. 3. Percutaneous coronary intervention of proximal and mid first obtuse marginal vessel with placement of drug-eluting stents. CONSENT: Informed consent was obtained from the patient after thorough discussi on of risks, benefits, and potential complications. The patient verbalized unde rstanding and agreed to undergo the procedure. PROCEDURE DETAILS: The patient was brought to the cardiac catheterization area in a fasting and nonsedated state. A total of 2 mg of Versed and 200 mcg of fen tanyl were administered intravenously throughout the procedure. Moderate consci ous sedation was maintained for 109 minutes, which was monitored throughout the procedure by me, my attending, and microbiology lab analyst staff. Blood pressure, oxygen level , heart rate, and level of consciousness were assessed throughout the procedure and at its conclusion. LEFT HEART CATHETERIZATION VIA LEFT RADIAL ACCESS: The left wrist was draped an d prepped in usual sterile fashion. After this, we utilized 3 mL of 1% lidocain e and a micro access kit to access left radial artery under direct ultrasound gu idance. Over the wire, a 6-Filipino Slender sheath was introduced. 4000 units of heparin were administered intravenously, and then 200 mcg of nitroglycerin and 2.5 mg of verapamil were administered intra-arterially once access was obtained. Subsequently, we utilized TIG 4 catheter and performed left heart catheterizat ion and selective right coronary angiography. A JL 3.5 catheter was used to per form selective angiography of the left system. A 6-Filipino EBU 3.5 guide was use d for PCI of obtuse marginal vessel, the details of which are below. At the end of the procedure, all catheters and wires were removed. Patient received a TR Band in the right wrist area. Patient was transported back to [facility] in h emodynamically stable and pain-free state. HEMODYNAMICS: 1. Central aortic pressure: 148/51 mmHg with a mean arterial pressure of 88 mmHg . 2. Left ventricular systolic pressure: 200 mmHg. 3. Left ventricular end-diastolic pressure: 20 mmHg. SELECTIVE CORONARY ANGIOGRAPHY: 1. Left main coronary artery: Previously placed stent in left main coronary art elyse is patent without any significant in-stent restenosis. The left main blanchard ry artery bifurcates into left anterior descending artery and left circumflex ar bassem. 2. Left anterior descending artery: A large vessel which gives rise to 1 large diagonal vessel. The proximal LAD has a tubular segment of 30% to 40% stenosis just proximal to the takeoff of the first diagonal vessel. This is a type 2 LAD . 3. Left circumflex artery: A small-caliber vessel which gives rise to 1 large f irst obtuse marginal vessel. The proximal portion of the 1st obtuse marginal ve ssel has a heavily calcified eccentric subtotal occlusion with 99% stenosis. Th e mid first obtuse marginal vessel has another focal stenosis of 70% to 80% ml rity. The distal portion of the 2nd obtuse marginal vessel gives rise to 2 bran ches and is free of significant CAD. 4. Right coronary artery: A large, dominant vessel which arises normally from t he right coronary sinus. The proximal and mid coronary artery have diffuse gabbie nal irregularities with about 10% to 20% disease. The mid RCA, in addition, has a focal calcified stenosis of 80% severity. The RCA bifurcates into right post erior descending artery and right posterolateral ventricular branch, which are f ree of angiographic evidence of significant disease. PERCUTANEOUS CORONARY INTERVENTION OF FIRST OBTUSE MARGINAL VESSEL: For this pu rpose, a 6-Filipino EBU 3.5 guide was used to engage the ostium of left main coron primo artery. A 0.014 x 182 cm Luge wire was then advanced into the obtuse margin al vessel and was placed in the distal obtuse marginal vessel. A 2.0 x 15 mm Ta keru balloon was then attempted to be advanced across the target lesion, but the re was difficulty in advancing the balloon all the way across the lesion. A Cor sair microcatheter was then advanced over the Luge wire into the mid part of the obtuse marginal vessel. The Luge wire was then exchanged for a 0.014 x 300 cm Luge wire. The microcatheter was removed, and a 1.5 x 15 mm Trek balloon was in flated across the target lesion and proximal obtuse marginal vessel at 16 atmosp heres. Due to difficulty in advancing the balloon, a 6-Filipino Teleflex GuideLin er was then advanced into the proximal left main for additional support. A 2.0 x 15 mm Takeru balloon was then inflated across the proximal obtuse marginal art elyse lesion at 14 atmospheres. This was followed by a 2.0 x 20 mm NC Viper balloo n, which was inflated in the proximal OM at 18 atmospheres. A 2.0 x 30 mm [place] drug-eluting stent was then attempted to be advanced across the target lesion, b ut there was difficulty in delivering the stent. A 0.014 [place] wire was th en advanced into the midportion of the obtuse marginal vessel for additional sup port. A 2.25 x 20 mm NC Viper balloon was then inflated at 6 atmospheres and def lated to help advancement of the GuideLiner into proximal portion of the obtuse marginal vessel. The lesion was predilated again with a 2.5 x 15 mm NC Viper bal loon at 16 atmospheres. A 2.0 x 30 mm Brad drug-eluting stent was then deployed across the culprit lesion and proximal obtuse marginal vessel at 18 atmospheres . The stent was post dilated with a 2.5 x 20 mm NC Viper balloon at 20 atmospher es. The Grand Slam wire was removed prior to stent deployment. A 2.5 x 20 mm N C Viper balloon was then used to predilate the mid obtuse marginal vessel lesion at 20 atmospheres. A 2.5 x 12 mm [place] drug-eluting stent then deployed across t he mid obtuse marginal lesion at 14 atmospheres. A 3.0 x 12 mm Viper balloon was then used to post dilate the proximal OM stent at 20 and 22 atmospheres. The w hattie and balloon were withdrawn into the guide. Post wire angiogram showed good stent apposition and expansion without evidence of distal wire perforation or co ronary dissection. LESION CHARACTERISTICS: 1. Lesion #1: a. [...] KERMA: 2063 mGy. ATTESTATION: My attending, Dr. Geni Ascencio, was present for the entire case, per forming kraft portions of the procedure. FINAL IMPRESSION: 1. Subtotal occlusion of proximal first obtuse marginal vessel, status post perc utaneous intervention with placement of a 2.0 x 30 mm Resolute [place] drug-eluting stent, which was post dilated with a 3.0 NC balloon. 2. 70% to 80% stenosis in mid first obtuse marginal vessel, status post percutan eous intervention with placement of a 2.5 x 12 mm Resolute [place] drug-eluting [place] nt. 3. Residual 80% calcified stenosis in mid right coronary artery, not intervened at this time due to contrast constraints. 4. Moderate nonobstructive disease in left anterior descending territory. RECOMMENDATIONS: 1. Dual antiplatelet therapy with aspirin and Plavix. 2. If patient has recurrent chest discomfort, we will consider intervention of r esidual RCA stenosis. 3. Routine post PCI care. 4. Cardiac rehab evaluation prior to discharge. Geni Ascencio MD ISMAEL/MedQ /[id number] cc: - Geni Ascencio MD documented in this encounter Plan of Treatment Not on filedocumented as of this encounter Procedures Comments Procedure Name Priority Date/Time Associated Diag nosis HC CBC,AUTOMATED Routine 08/07/2021 3:48 AM CDT HC BASIC METABOLIC PANEL Routine 08/07/2021 3:48 AM CDT CARDIAC CATH [...] a rtery disease 8:27 AM CDT involving sokaogon coronary artery of sokaogon heart with angina pectoris (HCC) TELEMETRY STRIPS-SCAN 08/06/2021 12:00 AM CDT ECG-SCAN 08/06/2021 12:00 AM CDT ECG-SCAN 08/06/2021 12:00 AM CDT PROCEDURE RECORD-SCAN 08/06/2021 12:00 AM CDT CARDIAC CATH REPORT Routine 07/31/2021 Coronary a rtery disease 3:14 PM CDT involving sokaogon coronary artery of sokaogon heart with angina pectoris (HCC) documented in this encounter Results * BASIC METABOLIC PANEL (08/07/2021 3:48 AM CDT) Sodium 138 137 - 147 MMOL/L [facility] [...] >60 >60 mL/min [facility] Comment: Italian The eGFR is not validated f or use in drug dosing adjustments. Continue to use estimated creatinine clearance per dosing reference text. Please contact the Clinical Pharmacist for questions. eGFR >60 >60 mL/min [facility] Italian Comment: The eGFR is not validated for use in drug dosing adjustments. Continue to use estimated creatinine clearance per dosing reference text. Please contact the Clinical Pharmacist for questions. Specimen Blood Performing Organization Address City/State/ZIP Code P stewart Number [facility] [address] [place] [address] * CBC (08/07/2021 3:48 AM CDT) White Blood 9.0 4.5 - 11.0 K/UL [...] MAIN LAB Specimen Blood Performing Organization Address City/[facility]/ZIP Code P stewart Number [facility] [address] [place] [address] * CARDIAC CATH REPORT (08/06/2021 6:47 PM CDT) Procedure Note Leora Nj MBBS - 08/06/2021 6:47 PM CDT [facility] CARDIAC CATHETERIZATION REPORT Page 2 MIKKI Huynh : 1955 [facility]#: [id number] MR #/Billing ID #: [id number] / [id number] DATE: 08/06/2021 ROUND KILN DRAWER: Geni Ascencio MD DICTATING PROVIDER: Leora Nj MD REFERRING PHYSICIAN: Geni Ascencio MD BOX CAR WASHER: Dr. Geni Ascencio INDICATION FOR PROCEDURE: Ms. Mcwilliams is [...] the procedure by me, my attending, and microbiology lab analyst staff. Blood pressure, oxygen level, heart rate, [...] direct ultrasound guidance. Over the wire, a 6-Filipino Slender sheath was introduced. 4000 units of heparin were administered intravenously, and then 200 mcg of nitroglycerin and 2.5 mg of verapamil were administered intra-arterially once access was obtained. Subsequently, we utilized TIG 4 catheter and performed left heart catheterization and selective right coronary angiography. A JL 3.5 catheter was used to perform selective angiography of the left system. A 6- Filipino EBU 3.5 guide was used for PCI of obtuse marginal vessel, the details of which are below. At the end of the procedure, all catheters and wires were removed. Patient received a TR Band in the right wrist area. Patient was transported back to [facility] area in hemodynamically stable and pain-free [...] OBTUSE MARGINAL VESSEL: For this purpose, a 6-Filipino EBU 3.5 guide was used to engage [...] to difficulty in advancing the balloon, a 6-Filipino Teleflex GuideLiner was then advanced into the proximal left main for additional support. A 2.0 x 15 mm Takeru balloon was then inflated across the proximal obtuse marginal artery lesion at 14 atmospheres. This was followed by a 2.0 x 20 mm NC Viper balloon, which was inflated in the proximal OM at 18 atmospheres. A 2.0 x 30 mm [place] drug-eluting stent was then attempted to be advanced across the target lesion, but there was difficulty in delivering the stent. A 0.014 Grand Slam wire was then advanced into the midportion of the obtuse marginal vessel for additional support. A 2.25 x 20 mm NC Viper balloon was then inflated at 6 atmospheres and deflated to help advancement of the GuideLiner into proximal portion of the obtuse marginal vessel. The lesion was predilated again with a 2.5 x 15 mm NC Viper balloon at 16 atmospheres. A 2.0 x 30 mm [place] drug-eluting stent was then deployed across the culprit lesion and proximal obtuse marginal vessel at 18 atmospheres. The stent was post dilated with a 2.5 x 20 mm NC Viper balloon at 20 atmospheres. The Grand Slam wire was removed prior to stent deployment. A 2.5 x 20 mm NC Viper balloon was then used to predilate the mid obtuse marginal vessel lesion at 20 atmospheres. A 2.5 x 12 mm Brad drug- eluting stent then deployed across the mid obtuse marginal lesion at 14 atmospheres. A 3.0 x 12 mm Viper balloon was then used to post dilate [...] KERMA: 2063 mGy. ATTESTATION: My attending, Dr. Geni Ascencio, was present for the entire case, performing kraft portions of the procedure. FINAL IMPRESSION: 1. Subtotal occlusion of proximal first obtuse marginal vessel, status post percutaneous intervention with placement of a 2.0 x 30 mm Resolute [place] drug- eluting stent, which was post dilated with a 3.0 NC balloon. 2. 70% to 80% stenosis in mid first obtu se marginal vessel, status post percutaneous intervention with placement of a 2.5 x 12 mm Resolute [place] drug- eluting stent. 3. Residual 80% calcified [...] Cardiac rehab evaluation prior to dis charge. Geni Ascencio MD ISMAEL/MedQ /[id number] cc: - Geni Ascencio MD Performing Organization Address City/[facility]/ZIP Code P stewart Number OTHER OUTSIDE LAB * POC ACTIVATED CLOTTING TIME (08/06/2021 11:11 AM CDT) Activated 291 s [facility] Clotting Time Specimen Performing Organization Address City/[facility]/ZIP Code P stewart Number MAIN LAB [address] [place] [address] * POC ACTIVATED CLOTTING TIME (08/06/2021 10:42 AM CDT) Activated 307 s [facility] Clotting Time Specimen Performing Organization Address City/[facility]/ZIP Code P stewart Number [facility] [address] [place] [address] * POC ACTIVATED CLOTTING TIME (08/06/2021 10:18 AM CDT) Activated 300 s [facility] Clotting Time Specimen Performing Organization Address [facility] Code P stewart Number [facility] [address] [place] [address] * CBC (08/06/2021 9:20 AM CDT) White Blood 6.1 4.5 - 11.0 K/UL [facility] Cells RBC 3.55 (L) 4.0 - 5.0 M/UL [facility] Hemoglobin 9.0 (L) 12.0 - 15.0 GM/DL [facility] Hematocrit 28.7 (L) 36 - 45 % [facility] MCV 80.6 80 - 100 FL [facility] MCH 25.2 (L) 26 - 34 PG [facility] MCHC 31.2 (L) 32.0 - 36.0 G/DL [facility] RDW 18.9 (H) 11 - 15 % [facility] Platelet Count 211 150 - 400 K/UL [facility] MPV 9.4 7 - 11 FL [facility] Specimen Blood Performing Organization Address City/State/ZIP Code P stewart Number MAIN LAB [address] [place] [address] * BASIC METABOLIC PANEL (08/06/2021 9:20 AM CDT) Pathologist [facility] Sodium 139 137 - 147 MMOL/L [facility] Potassium 4.1 3.5 - 5.1 MMOL/L [facility] Chloride 104 98 - 110 MMOL/L [facility] CO2 20 (L) 21 - 30 MMOL/L [facility] Anion Gap 15 (H) 3 - 12 [facility] Glucose 75 70 - 100 MG/DL [facility] Blood Urea 15 7 - 25 MG/DL [facility] Nitrogen Creatinine 0.99 0.4 - 1.00 MG/DL [facility] Calcium 9.6 8.5 - 10.6 MG/DL [facility] eGFR Non 56 (L) >60 mL/min [facility] Comment: Italian The eGFR is not validated f or use in drug dosing adjustments. Continue to use estimated creatinine clearance per dosing reference text. Please contact the Clinical Pharmacist for questions. eGFR >60 >60 mL/min [facility] Italian Comment: The eGFR is not validated for use in drug dosing adjustments. Continue to use estimated creatinine clearance per dosing reference text. Please contact the Clinical Pharmacist for questions. Specimen Blood Performing Organization Address City/State/ZIP Code P stewart Number MAIN LAB [address] [place] [address] * ECG-SCAN (08/06/2021 12:00 AM CDT) Narrative [...] available. Ordered by an unspecified provider. * TELEMETRY STRIPS-SCAN (08/06/2021 12:00 AM CDT) Narrative Performed At This result has an attachment that is n ot available. Ordered by an unspecified provider. 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) PAD (peripheral artery disease) (HCC) Peripheral vascular disease, unspecifie d Essential hypertension Unspecified essential hypertension documented in this encounter Admitting Diagnoses Diagnosis Coronary artery disease due to lipid ri ch plaque documented in this encounter Administered Medications Action Date Dose Rate Site Medication Order MAR Action acetaminophen (TYLENOL) tablet 650 mg 650 mg, Oral, EVERY 4 HOURS PRN, Starting on Wed08/06/21 at 0828, Until Alejandrina 08/07/21 at 1208, Pain non-opioid: may be used alone or in combination wit h opioid analgesia, TOTAL ACETAMINOPHEN DOSE NOT TO EXCEED 4GM DAILY, Pre-Op acetaminophen (TYLENOL) tablet 650 mg 650 mg, Oral, EVERY 4 HOURS PRN, Starting on Wed08/06/21 at 1150, Until Alejandrina 08/07/21 at 1208, Pain non-opioid: may be used alone or in combination wit h opioid analgesia, TOTAL ACETAMINOPHEN DOSE NOT TO EXCEED 4GM DAILY aluminum/magnesium hydroxide (MAALOX) oral suspension 30 mL 30 mL, Oral, EVERY 4 HOURS PRN, Starting on Wed08/06/21 at 0828, Until Alejandrina 08/07/21 at 1208, Indigestion/Heartburn, Pre-Op aluminum/magnesium hydroxide (MAALOX) oral suspension 30 mL 30 mL, Oral, EVERY 4 HOURS PRN, Starting on Wed08/06/21 at 1150, Until Alejandrina 08/07/21 at 1208, Indigestion/Heartburn 08/07/2021 8:06 AM CDT 10 mg amLODIPine (NORVASC) tablet 10 mg Given 10 mg, Oral, DAILY, First dose on Wed08/06/21 at 1500, Until Discontinued, NURSING: Please educate patient and document: Do not give with grapefruit juice., Admission/Obs/Extended Recovery 10 mg Given 08/06/2021 1:44 PM CDT 08/07/2021 8:05 AM CDT 80 mg atorvastatin (LIPITOR) tablet 80 mg Given 80 mg, Oral, DAILY, First dose on Wed08/06/21 at 2100, Until Discontinued, Admission/Obs/Extended Recovery 80 mg Given 08/06/2021 8:17 PM CDT 08/07/2021 8:05 AM CDT 9 mg budesonide (ENTOCORT EC) capsule 9 mg Given 9 mg, Oral, DAILY, First dose on Wed08/06/21 at 1700, Until Discontinued, Admission/Obs/Extended Recovery 9 mg Given 08/06/2021 4:08 PM CDT 08/07/2021 8:06 AM CDT 6.25 mg carvediloL (COREG) tablet 6.25 mg Given 6.25 mg, Oral, TWICE DAILY WITH MEALS, First dose (after last modification) on Wed08/06/21 at 1600, Until Discontinued , Hold for heart rate < 50 bpm or systoli c BP < 95, Admission/Obs/Extended Recover y 6.25 mg Given 08/06/2021 4:09 PM CDT 08/07/2021 8:05 AM CDT 75 mg clopiDOGrel (PLAVIX) tablet 75 mg Given 75 mg, Oral, DAILY, First dose on Alejandrina 08/07/21 at 0900, Until Discontinued, This Medication can increase the risk o f bleeding and may need to be held prior to surgery or invasive procedures. Consult physician in advance., Admission/Obs/Extended Recovery diphenhydrAMINE HCL (BENADRYL) capsule 25 mg 25 mg, Oral, EVERY 4 HOURS PRN, Starting on Wed08/06/21 at 1150, Until Alejandrina 08/07/21 at 1208, Rash diphenhydrAMINE HCL (BENADRYL) injectio n 25 mg 25 mg, Intravenous, EVERY 4 HOURS PRN, Starting on Wed08/06/21 at 1150, Until Alejandrina 08/07/21 at 1208, Rash docusate (COLACE) capsule 100 mg 100 mg, Oral, DAILY PRN, Starting on Wed08/06/21 at 0828, Until Alejandrina 08/07/21 at 1208, Constipation PO, Hold for loos e stools., Pre-Op 08/07/2021 8:06 AM CDT 20 mg furosemide (LASIX) tablet 20 mg Given 20 mg, Oral, DAILY, First dose on Wed08/07/21 at 0900, Until Discontinued, Admission/Obs/Extended Recovery 08/07/2021 8:06 AM CDT 600 mg guaiFENesin LA (MUCINEX) tablet 600 mg Given 600 mg, Oral, DAILY, First dose on Wed08/06/21 at 1700, Until Discontinued, Admission/Obs/Extended Recovery 600 mg Given 08/06/2021 4:09 PM CDT 08/07/2021 8:06 AM CDT 30 mg isosorbide mononitrate ER (IMDUR) tablet Given 30 mg 30 mg, Oral, DAILY, First dose on Wed08/06/21 at 1700, Until Discontinued, DO NOT Crush tablets (May be cut in half), Admission/Obs/Extended Recovery 30 mg Given 08/06/2021 4:09 PM CDT 08/07/2021 8:05 AM CDT 100 mg losartan (COZAAR) tablet 100 mg Given 100 mg, Oral, DAILY, First dose on Wed08/06/21 at 1700, Until Discontinued, Admission/Obs/Extended Recovery 100 mg Given 08/06/2021 4:09 PM CDT nitroglycerin (NITROSTAT) tablet 0.4 mg 0.4 mg, Sublingual, EVERY 5 MIN PRN, Starting on Wed08/06/21 at 0828, Until Alejandrina 08/07/21 at 1208, Chest Pain, Not to exceed 3 doses per incident of chest pain. Notify physician if chest pain persists after 3 doses., Pre-Op ondansetron (ZOFRAN) injection 4 mg 4 mg, Intravenous, EVERY 6 HOURS PRN, Starting on Wed08/06/21 at 1150, Until Wed08/07/21 at 1208, Nausea/Vomiting Injectable 08/07/2021 8:05 AM CDT [address] (PROTONIX) tablet 40 mg Given 40 mg, Oral, TWICE DAILY, First dose (after last modification) on Wed 1 at 1600, Until Discontinued, Do not crush or chew tablet., Admission/Obs/Extended Recovery 40 mg Given 08/06/2021 4:09 PM CDT 08/07/2021 8:06 AM CDT 10 mEq potassium chloride SR (K-DUR) tablet 10 Given mEq 10 mEq, Oral, DAILY WITH BREAKFAST, First dose on Wed08/07/21 at 0800, Unti l Discontinued, Give with meal or full glass of water, Admission/Obs/Extended Recovery 08/06/2021 9:38 AM CDT 500 mL 999 mL/hr sodium chloride 0.9 % infusion Given - New 500 mL, 500 mL, Intravenous, at 999 Bag mL/hr, BOLUS, 1 dose, On Wed08/06/21 at 0930 sodium chloride 0.9 % infusion 250 mL, 250 mL, Intravenous, at 250 mL/hr, CONTINUOUS, Starting on Wed08/06/21 at 0930, Until Alejandrina 08/07/21 at 1208 08/07/2021 8:05 AM CDT 1 g sucralfate (CARAFATE) tablet 1 g Given 1 g, Oral, BEFORE MEALS AND AT BEDTIME, First dose on Wed08/06/21 at 2100, Unti l Discontinued, Can be made into a slurry by placing 1 Sucralfate tablet i n 30 mL water and allow to stand for 5 minutes. , Admission/Obs/Extended Recovery 1 g Given 08/06/2021 8:17 PM CDT temazepam (RESTORIL) capsule 15 mg 15 mg, Oral, AT BEDTIME PRN, Starting o n Wed08/06/21 at 0828, Until Wed08/07/21 at 1208, Insomnia, Pre-Op documented in this encounter Active and Recently Administered Medications Times are shown in CDT. 08/06/2021 08/07/2021 Medication Order 08/05/2021 1344 (Given - Provider: Osmani Tovar RN)1500 (Canceled Entry - Provider: Osmani Tovar RN) 0806 (Given - Provider: Brittni cAosta RN) amLODIPine (NORVASC) tablet 10 mg 10 mg, Oral, DAILY, First dose on Wed08/06/21 at 1500, Until Discontinued, NURSING: Please educate patient and document: Do not give with grapefruit juice., Admission/Obs/Extended Recovery 2017 (Given - Provider: Trent Greene RN) 08 (Given - Provider: Brittni Acosta RN) atorvastatin (LIPITOR) tablet 80 mg 80 mg, Oral, DAILY, First dose on Wed08/06/21 at 2100, Until Discontinued, Admission/Obs/Extended Recovery 1608 (Given - Provider: Anne-Marie Palacios RN) 08 (Given - Provider: Brittni Acosta RN) budesonide (ENTOCORT EC) capsule 9 mg 9 mg, Oral, DAILY, First dose on Wed08/06/21 at 1700, Until Discontinued, Admission/Obs/Extended Recovery 160 (Given - Provider: Anne-Marie Palacios RN) 08 (Given - Provider: Brittni Acosta RN) carvediloL (COREG) tablet 6.25 mg 6.25 mg, Oral, TWICE DAILY WITH MEALS, First dose (after last modification) on Wed08/06/21 at 1600, Until Discontinued , Hold for heart rate < 50 bpm or systoli c BP < 95, Admission/Obs/Extended Recover y 08 (Given - Provider: Brittni Acosta RN) clopiDOGrel (PLAVIX) tablet 75 mg 75 mg, Oral, DAILY, First dose on Alejandrina 08/07/21 at 0900, Until Discontinued, This Medication can increase the risk o f bleeding and may need to be held prior to surgery or invasive procedures. Consult physician in advance., Admission/Obs/Extended Recovery 805 (Given - Provider: Brittni Acosta RN) furosemide (LASIX) tablet 20 mg 20 mg, Oral, DAILY, First dose on Alejandrina 08/07/21 at 0900, Until Discontinued, Admission/Obs/Extended Recovery 160 (Given - Provider: Anne-Marie Palacios RN) 08 (Given - Provider: Brittni Acosta RN) guaiFENesin LA (MUCINEX) tablet 600 mg 600 mg, Oral, DAILY, First dose on Wed08/06/21 at 1700, Until Discontinued, Admission/Obs/Extended Recovery 160 (Given - Provider: Anne-Marie Palacios RN) 08 (Given - Provider: Brittni Acosta RN) isosorbide mononitrate ER (IMDUR) table t 30 mg 30 mg, Oral, DAILY, First dose on Wed08/06/21 at 1700, Until Discontinued, DO NOT Crush tablets (May be cut in half), Admission/Obs/Extended Recovery 1609 (Given - Provider: Anne-Marie Palacios, RN) 0805 (Given - Provider: Brittni Acosta, LU) losartan (COZAAR) tablet 100 mg 100 mg, Oral, DAILY, First dose on Wed08/06/21 at 1700, Until Discontinued, Admission/Obs/Extended Recovery 1609 (Given - Provider: Anne-Marie Palacios, RN) 0805 (Given - Provider: Brittni Acosta, LU) pantoprazole DR (PROTONIX) tablet 40 mg 40 mg, Oral, TWICE DAILY, First dose (after last modification) on Wed 1 at 1600, Until Discontinued, Do not crush or chew tablet., Admission/Obs/Extended Recovery 0806 (Given - Provider: Brittni Acosta, LU) potassium chloride SR (K-DUR) tablet 10 mEq 10 mEq, Oral, DAILY WITH BREAKFAST, First dose on Alejandrina 08/07/21 at 0800, Unti l Discontinued, Give with meal or full glass of water, Admission/Obs/Extended Recovery 0938 (Given - New Bag - Provider: Nikko Tovar RN) sodium chloride 0.9 % infusion (COMPLETED) 500 mL, 500 mL, Intravenous, at 999 mL/hr, BOLUS, 1 dose, On Wed08/06/21 at 0930 2016 (Given - Provider: Trent Greene RN) 0805 (Given - Provider: Brittni Acosta RN) sucralfate (CARAFATE) tablet 1 g 1 g, Oral, BEFORE MEALS AND AT BEDTIME, First dose on Wed08/06/21 at 2100, Unti l Discontinued, Can be made into a slurry by placing 1 Sucralfate tablet i n 30 mL water and allow to stand for 5 minutes. , Admission/Obs/Extended Recovery 08/06/2021 08/07/2021 Medication Order 08/05/2021 1222 (Canceled Entry - Provider: Osmani Tovar RN) sodium chloride 0.9 % infusion 250 mL, 250 mL, Intravenous, at 250 mL/hr, CONTINUOUS, Starting on Wed08/06/21 at 0930, Until Wed08/07/21 at 1208 08/06/2021 08/07/2021 Medication Order 08/05/2021 acetaminophen (TYLENOL) tablet 650 mg 650 mg, Oral, EVERY 4 HOURS PRN, Starting on Wed08/06/21 at 0828, Until Alejandrina 08/07/21 at 1208, Pain non-opioid: may be used alone or in combination wit h opioid analgesia, TOTAL ACETAMINOPHEN DOSE NOT TO EXCEED 4GM DAILY, Pre-Op acetaminophen (TYLENOL) tablet 650 mg 650 mg, Oral, EVERY 4 HOURS PRN, Starting on Wed08/06/21 at 1150, Until Alejandrina 08/07/21 at 1208, Pain non-opioid: may be used alone or in combination wit h opioid analgesia, TOTAL ACETAMINOPHEN DOSE NOT TO EXCEED 4GM DAILY albuterol sulfate (PROAIR HFA) inhaler 2 puff 2 puff, Inhalation, RT EVERY 4 HOURS PRN, Starting on Wed08/06/21 at 1050, Until Alejandrina 08/07/21 at 1208, Shortness of Breath, Wheezing, When administered by RT, will be per RT policy., Admission/Obs/Extended Recovery aluminum/magnesium hydroxide (MAALOX) oral suspension 30 mL 30 mL, Oral, EVERY 4 HOURS PRN, Starting on Wed08/06/21 at 0828, Until Alejandrina 08/07/21 at 1208, Indigestion/Heartburn, Pre-Op aluminum/magnesium hydroxide (MAALOX) oral suspension 30 mL 30 mL, Oral, EVERY 4 HOURS PRN, Starting on Wed08/06/21 at 1150, Until Alejandrina 08/07/21 at 1208, Indigestion/Heartburn diphenhydrAMINE HCL (BENADRYL) capsule 25 mg(Linked Group 1) 25 mg, Oral, EVERY 4 HOURS PRN, Starting on Wed08/06/21 at 1150, Until Alejandrina 08/07/21 at 1208, Rash diphenhydrAMINE HCL (BENADRYL) injectio n 25 mg(Linked Group 1) 25 mg, Intravenous, EVERY 4 HOURS PRN, Starting on Wed08/06/21 at 1150, Until Alejandrina 08/07/21 at 1208, Rash docusate (COLACE) capsule 100 mg 100 mg, Oral, DAILY PRN, Starting on Wed08/06/21 at 0828, Until Alejandrina 08/07/21 at 1208, Constipation PO, Hold for loos e stools., Pre-Op nitroglycerin (NITROSTAT) tablet 0.4 mg 0.4 mg, Sublingual, EVERY 5 MIN PRN, Starting on Wed08/06/21 at 0828, Until Wed08/07/21 at 1208, Chest Pain, Not to exceed 3 doses per incident of chest pain. Notify physician if chest pain persists after 3 doses., Pre-Op ondansetron (ZOFRAN) injection 4 mg 4 mg, Intravenous, EVERY 6 HOURS PRN, Starting on Wed08/06/21 at 1150, Until Wed08/07/21 at 1208, Nausea/Vomiting Injectable temazepam (RESTORIL) capsule 15 mg 15 mg, Oral, AT BEDTIME PRN, Starting o n Wed08/06/21 at 0828, Until Wed08/07/21 at 1208, Insomnia, Pre-Op Order Group 1: diphenhydrAMINE HCL (BENADRYL) capsule 25 mgJump to med 25 mg, Oral, EVERY 4 HOURS PRN, Starti ng on Wed08/06/21 at 1150, Until Wed08/07/21 at 1208, Rash Or diphenhydrAMINE HCL (BENADRYL) injectio n 25 mgJump to med 25 mg, Intravenous, EVERY 4 HOURS PRN, Starting on Wed08/06/21 at 1150, Until Wed08/07/21 at 1208, Rash documented in this encounter Orders First Ordered Date Medications Ordered That Might Not Have Count Last Ordered Date Been Administered acetaminophen (TYLENOL) tablet 650 mg 2 08/06/2021 albuterol sulfate (PROAIR HFA) inhaler 2 1 08/06/2021 puff aluminum/magnesium hydroxide (MAALOX) 2 08/06/2021 oral suspension 30 mL aspirin tablet 325 mg 1 08/06/2021 carvediloL (COREG) tablet 6.25 mg 07/23 diphenhydrAMINE HCL (BENADRYL) capsule 1 08/06/2021 25 mg diphenhydrAMINE HCL (BENADRYL) injection 08/06/2021 25 mg docusate (COLACE) capsule 100 mg 1 08/06 nitroglycerin (NITROSTAT) tablet 0.4 mg 08/06/2021 ondansetron (ZOFRAN) injection [address] (PROTONIX) tablet 40 mg 1 08/06/2021 sodium chloride 0.9 % infusion 1 08/06 temazepam (RESTORIL) capsule 15 mg 1 First Ordered Date Procedures Count Last Ordered Date CONSULT IV THERAPY TEAM 1 08/06/2021 First Ordered Date Diet Count Last Ordered Date DISCHARGE DIET CARDIAC 1 08/07/2021 First Ordered Date Nursing Count Last Ordered Date CARDIAC REHAB 1 08/07/2021 DISCHARGE ACTIVITY OTHER 1 08/07/2021 DISCHARGE CONTACT 1 08/07/2021 DISCHARGE SIGNS/SYMPTOMS 1 08/07/2021 DISCHARGE WOUND CARE 1 08/07/2021 RISK REDUCTION PLAN 1 08/07/2021 First Ordered Date Admission Count Last Ordered Date PLACE PATIENT EXTENDED RECOVERY CLASS 1 08/06/2021 (NO BED REQUEST) First Ordered Date Discharge Count Last Ordered Date DISCHARGE PATIENT NOW 1 08/07/2021 First Ordered Date Vital Signs Count Last Ordered Date VITAL SIGNS 1 08/06/2021 First Ordered Date Cardiac Cath Count Last Ordered Date 07/31/2021 CARDIAC CATH REPORT 2 08/06/2021 First Ordered Date Appointment Request Count Last Ordered Date APPOINTMENT REQUEST: CARDIAC REHAB 1 First Ordered Date Intake & Output Count Last Ordered Date INTAKE AND OUTPUT 1 08/06/2021 documented in this encounter Additional Health Concerns Assessment Noted Time A fall risk assessment has been completed for the pat ient 08/07/2021 7:00 AM CDT PHQ-2 Depression Total Score: 0 08/06/2021 7:14 AM CDT documented as of this encounter
--- OUTSIDE RECORDS SUMMARY | 2021-08-15 11:42 | XMS REPORT | Encounter Summary ---
Author Author [facility] Organization [facility] Address Unknown Phone Unavailable Care Team Providers Care Filter Washer Name Role Phone Aaron Lei MD Unavailable Cj Antony MD Unavailable Nereida Campbell NP PCP Encounter Details Care Team Description Date Type Department 08/06/2021 Travel Social History Date Tobacco Use Types Packs/Day [...] / COVID-19? documented as of this encounter Functional Status Date of Assessment [...] impairment: No documented as of this encounter Plan of Treatment Not on filedocumented as of this encounter Visit Diagnoses Not on filedocumented in this encounter Additional Health Concerns Assessment Noted Time A fall risk assessment has been completed for the pat ient 08/06/2021 6:00 PM CDT PHQ-2 Depression Total Score: 0 08/06/2021 7:14 AM CDT documented as of this encounter
--- OUTSIDE RECORDS SUMMARY | 2021-08-15 11:43 | XMS REPORT | Encounter Summary ---
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); Encounter for screening laboratory testing for COVID-19 virus in asymptomatic patient 07/31/2021 Prep for Case Cardiology: [facility] [address] [place] [address], [address] [place] [address] Social History Date Tobacco Use Types Packs/Day Years Used Quit: 09/03/2016 Former Smoker Cigarettes 2 44 Smokeless Tobacco: Never Used Comments Alcohol Use Standard Drinks/Week No 0 (1 standard drink = 0.6 o z pure alcohol) Sex Assigned at Date Recorded Not on file Date Recorded COVID-19 Exposure Response 07/31/2021 8:59 AM CDT In the last month, have [...] Not on filedocumented as of this encounter Results * COVID-19 (SARS-COV-2) PCR (08/04/2021) COVID-19 Negative OTHER OUTSIDE (SARS-CoV-2) LAB PCR COVID-19 OTHER OUTSIDE (SARS-CoV-2) LAB PCR Source Specimen Flocked Swab - Nasopharyngeal Narrative Performed At This result has an attachment that is n ot available. 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
--- OUTSIDE RECORDS SUMMARY | 2021-08-15 11:43 | XMS REPORT | Encounter Summary ---
Author Author [facility] Organization [facility] Address Unknown Phone Unavailable Care Team Providers Care Trial Manager Name Role Phone No Pcp, Na PCP Unavailable Aaron Lei MD Unavailable Cj Antony MD Unavailable Reason for Referral * Radiology Services (Routine) Referred By Contact Referred To Contact Status Reason Specialty Diagnoses / Procedures Aaron Lei MD [address] [place] [address] New Request Radiology Diagnoses PAD (peripheral artery disease) (HCC) P rocedures VAS US NONINVASIVE LOWER EXT PVR Electronically signed by Aaron Lei MD at * Radiology Services (Routine) Referred By Contact Referred To Contact Status Reason Specialty Diagnoses / Procedures Aaron Lei MD [address] [place] [address] New Request Radiology Diagnoses Bilateral carotid artery stenosis P rocedures VAS US DUPLEX SCAN CAROTID BILATERAL Electronically signed by Aaron Lei MD at Reason for Visit * Reason Comments PVD CAROLE Encounter Details Care Team Description Date Type Department Aaron Lei MD [address] [place] [address] [phone] PAD (peripheral artery disease) (HCC) (P rimary Dx); Bilateral carotid artery stenosis; History of TIA (transient ischemic attack); Essential hypertension; Hyperlipidemia, unspecified hyperlipidemia type 07/31/2021 Office Visit Surgery: [facility] [address] [facility] [place] [address] Social History Date Tobacco Use Types Packs/Day [...] Signs Reading Time Taken Comments Vital Sign 121/52 07/31/2021 10:20 AM CDT Blood Pressure 57 07/31/2021 10:20 AM CDT Pulse 36.4 C (97.5 F) 07/31/2021 10:11 AM CDT Temperature - - Respiratory Rate - - Oxygen Saturation - - Inhaled Oxygen Concentration 61.2 kg (135 lb) 07/31/2021 10:11 AM CDT Weight 165.1 cm (5' 5") 07/31/2021 10:11 AM CDT Height 22.47 07/31/2021 10:11 AM CDT Body Mass Index documented in this encounter [...] impairment: No documented as of this encounter Patient Instructions * Patient Instructions* Barak Moreno RN - 07/31/2021 10:30 AM CDT Images from the original note were not included. Continue to take clopidogrel (Plavix), and atorvastatin (Lipitor) Continue to control and monitor blood pressure Carotid Artery Problems: Stroke The carotid arteries are large blood vessels that carry blood to the brain. When these arteries are healthy, the brain gets all the oxygen and nutrients it needs to function well. But if the carotid arteries are damaged, this can greatly in crease your risk ofa stroke.A stroke is a sudden loss of brain function caus ed by a lack of blood flowand oxygen. Small pieces of a blood clot called emboli break off and can enter the bloodstre am and travel to the brain. Brain tissue is damaged when emboli block arteries i n the brain. How artery damage can lead to a stroke A healthy carotid artery is smooth on the inside, like a tube. But health proble ms such as high blood pressure, diabetes, and smoking can damage the inside of t he artery wall and make it rough. This lets fatty deposits called plaque build u p on the artery wall. Blood clots called emboli may also form on the plaque. If pieces of plaque or emboli break off, they can flow in the blood and get stuck i n a small blood vessel in the brain. This blocks the blood flow to a part of the brain, and causes a stroke. Symptoms of a stroke Below are common symptoms of a stroke. Call 911 right awayif you have any of these symptoms. Fast medical treatment for a stroke is vital. The longer you wa it to get help, the more damage a stroke can do. Sudden numbness or weakness of the face, arm, or leg, especially on one side of the body Sudden confusion or trouble speaking or understanding other people Sudden trouble seeing in 1 or both eyes Sudden trouble walking, dizziness, or loss of balance or coordination Sudden, severe headache with no known cause Sudden new seizures Transient ischemic attack (TIA) A transient ischemic attack (TIA) is a mini-stroke. Its a warning sign that a larger stroke may happen in the near future. A TIA is when an artery to the bra in is blocked for a brief time. This will cause symptoms just like those that colby ppen with a stroke. But with a TIA, they last a short period of time, from a few seconds to a few hours. Never ignore any TIA or stroke symptoms. Call 911 rig ht away . F.A.S.T. F.A.S.T. is an easy way to remember the signs of a stroke or TIA. When you see t hese signs, call 911 fast. F.A.S.T. stands for: F is for face drooping. One side of the face is drooping or numb. When the pe rson smiles, the smile is uneven. A is for arm weakness. One arm is weak or numb. When the person lifts both ar ms at the same time, one arm may drift downward. S is for speech difficulty. You may notice slurred speech or trouble speaking . The person can't repeat a simple sentence correctly when asked. T is for time to call 911. If someone shows any of these symptoms, even if th e symptoms go away, call 911 right away. Make note of the time the symptoms firs t appeared. [employer] last reviewed this educational content on 01/21/202019994811-0559 The [employer]. All rights reserved. This information is not intended as a substitute for professional medical care. Always follow your healthcare professional's instructions. Leg Artery Emergencies: Critical Limb Ischemia (CLI) Critical limb ischemia (CLI)is a condition that can occur over time when your leg arteries are damaged. It's a severe form of peripheral arterial disease (PAD ). PAD is caused when leg arteries are narrowed, reducing blood flow. If blood f low to the toe, foot, or leg is completely blocked, the tissue starts to (liberty lynne). If this happens, you need medical care right away to restore blood flow and possibly save the leg. But even with the best medical care, it might not be possible to save a severely affected limb. When do you need emergency care? CLI can get worse and cause an urgent problem. For example, if you have a wound, it may not heal. This can lead to gangrene. Go to the emergency room right away if you have any of these symptoms: A wound that is foul smelling, draining pus, or discolored Severe foot or leg pain that occurs suddenly without injury, especially if th e foot or leg is cold or numb Call your healthcare provider if: You have a cut or pressure injury that does not heal You have foot or leg pain that happens when walking but goes away with rest. This may be a sign of blocked arteries. How is critical limb ischemia diagnosed? Certain tests may be done to find out if you have CLI. First your provider will carefully examine you, checking for pulses at several places. Other common tests include: Ankle-brachial index (ANDRES). The blood pressure in your ankle is compared with the blood pressure in your arm. Duplex ultrasound.Harmless sound waves are used to create images of blood f low in your legs. Arteriography.X-ray dye (contrast medium) is injected into the artery using a thin, flexible tube (catheter). This allows blood vessels to be seen easily on X-rays. How is critical limb ischemia treated? Possible treatments for CLI include: Dissolving or removing a blood clot.To dissolve a clot, a tube (catheter) i s put into an artery in your groin. Clot-busting medicine is put into the tube t o dissolve the clot. Or surgery may be done to remove the clot. A cut (incision) is made in the artery at the blocked area. The clot is then removed. Angioplasty.A tiny, uninflated balloon is sent to the narrowed area by a ca theter. It's then inflated to widen the artery. The balloon is deflated and bobo briana. Stenting.After angioplasty, atiny wire mesh tube (stent) may be put in th e artery to help hold it open. The stent is also put in using a catheter. Endarterectomy.An incision is made in the artery at the blocked area. The m aterial that blocks the artery is then removed from artery luevano. Peripheral bypass surgery.A natural or artificial graft is used to bypass t he blocked area. Amputation.If left untreated, the affected area may have to be removed (amp utated). How can critical limb ischemia emergencies be prevented? Know the signs and symptoms of a leg artery emergency. If you have diabetes or p oor blood circulation, check your feet daily for wounds, sores, blisters, and co thais changes. If you smoke, get help to stop. [employer] last reviewed this educational content on 09/22/201919991724-1566 The [employer]. All rights reserved. This information is not intended as a substitute for professional medical care. Always follow your healthcare professional's instructions. documented in this encounter Progress Notes * Aaron Lei MD - 07/31/2021 10:30 AM CDT Date of Service: 07/31/2021 Chief Complaint Patient presents with PVD CAROLE History of Present Illness This is a 66-year-old female vasculopath with a history of hypertension, hyperli pidemia, coronary artery disease, peripheral vascular disease and carotid artery stenosis. She returns today for follow-up with ABIs and a carotid ultrasound. Her ABIs are 0.35 on the right with a TBI of 0.28 and on the left she has an ANDRES of 0.19 with a TBI of 0.12. Her carotid ultrasound shows an occluded right internal carotid artery and a 70 to 99% left carotid stenosis with a ratio 14.9. She had a peak left proximal in ternal carotid velocity of 906/306. Dr. Lei has reviewed her test results. She does report that she had a "right eye stroke" a couple of years ago. She sa ys she was hospitalized in [facility] in May with an episode of left stephanie ed numbness of the arm and leg and she "could not talk" for about 15 minutes. S he says during that hospitalization, there was an attempt at a cardiac catheteri zation. After 2 hours of trying, they were unable to access her through either groin or through either wrist. She has not had another episode of TIA or stroke like symptoms since May. She has intermittent chest pain because she is "a little clogged". She denies s hortness of breath at rest. Again, following her May hospitalization in [facility], she was started on 3 L of nasal cannula oxygen. She was found to be anemi c and was diagnosed with microscopic colitis and had a blood transfusion. She says that she has been having abdominal pain, so much so that she is sometim es "scared to eat". She has " lots of diarrhea" and generalized weakness. She says it is intermittent. Sometimes she will have diarrhea for 2 or 3 days and t hen it subsides. She currently uses a cane at home and a wheelchair in public for ambulation. Hussain quintanilla says she can still walk pretty well but goes very slowly. She denies the pres ence of foot ulcerations. She has a history of heart attack and stent placement. She has never had blanchard ry artery bypass grafting and does not have a pacemaker or defibrillator implant ed. She is not diabetic. A recent creatinine was 0.86 with a GFR of 66. She is not smoking. Her aspirin was discontinued because of her anemia. She continues on Plavix and Lipitor daily. Medical History: Diagnosis Date Alcoholic cirrhosis (HCC) 09/11/2016 CAD (coronary artery disease), [place] coronary artery 09/10/2016 Carotid artery stenosis 09/10/2016 Chronic diastolic (congestive) heart failure (HCC) 09/11/2016 Chronic respiratory failure (HCC) 09/10/2016 Cirrhosis of liver (HCC) 1997 COPD (chronic obstructive pulmonary disease) (HCC) 09/11/2016 Essential hypertension 09/11/2016 Gastroesophageal reflux disease with esophagitis 10/30/2016 Hepatitis A 1997 History of alcohol abuse HTN (hypertension) Mitral regurgitation 09/10/2016 PAD (peripheral artery disease) (HCC) Stroke (HCC) pt states she had a stroke in her Rt eye Tobacco abuse 09/11/2016 Tricuspid regurgitation 09/10/2016 Surgical History: Procedure Laterality Date Coronary Angiography N/A 09/09/2016 Performed by Cath, Physician at [facility] Left Heart Catheterization Left 10/08/2016 Performed by Cath, Physician at [facility] Coronary Angiography N/A 10/08/2016 Performed by Cath, Physician at [facility] ESOPHAGOGASTRODUODENOSCOPY WITH BIOPSY - FLEXIBLE N/A 05/10/2019 Performed by Edwin Church MD at [facility] GASTROINTESTINAL TRACT IMAGING ESOPHAGUS THROUGH ILEUM - INTRALUMINAL N/A Performed by Edwin Church MD at [facility] ANGIOGRAPHY CORONARY ARTERY WITH RIGHT AND LEFT HEART CATHETERIZATION N/A Performed by Cath, Physician at [facility] POSSIBLE PERCUTANEOUS CORONARY STENT PLACEMENT WITH ANGIOPLASTY N/A 9 Performed by Cath, Physician at [facility] CHOLECYSTECTOMY Allergies: No Known Allergies Medication List: acetaminophen (TYLENOL) 325 mg tablet Take 325 [...] 2 Tabs by mouth twice daily. (Oscar oseijluis taking differently: Take 600 mg by mouth [...] tab Take 1 Tab by mouth daily. Social History: reports that she quit smoking about 4 years ago. Her smoking use included cigar ettes. She has a 88.00 pack-year smoking history. She has never used smokeless t obacco. She reports that she does not drink alcohol and does not use drugs. Family History Problem Relation Age of Onset Heart Failure Mother Review of Systems Constitutional: Positive for activity change, appetite change and fatigue. Negat daisy for chills, diaphoresis, fever and unexpected weight change. HENT: Positive for congestion and nosebleeds. Negative for hearing loss and tinn itus. Eyes: Negative for photophobia, itching and visual disturbance. Respiratory: Positive for apnea and shortness of breath. Negative for cough and chest tightness. Cardiovascular: Positive for chest pain. Negative for palpitations and leg swell ing. Gastrointestinal: Positive for abdominal pain, diarrhea and nausea. Negative for blood in stool, constipation and vomiting. Endocrine: Negative for cold intolerance and heat intolerance. Genitourinary: Positive for enuresis and frequency. Negative for dysuria, hematu nicole and urgency. Musculoskeletal: Negative for arthralgias, back pain, gait problem, joint swelli ng, myalgias, neck pain and neck stiffness. Skin: Positive for color change and pallor. Negative for rash and wound. Allergic/Immunologic: Negative for environmental allergies, food allergies and i mmunocompromised state. Neurological: Positive for tremors, weakness and headaches. Negative for dizzine ss, seizures, syncope, facial asymmetry, speech difficulty, light-headedness and numbness. Hematological: Negative for adenopathy. Bruises/bleeds easily. Psychiatric/Behavioral: Positive for sleep disturbance. Negative for behavioral problems, confusion and dysphoric mood. The patient is nervous/anxious. Vitals: 07/31/21 1011 07/31/21 1020 BP: 131/52 121/52 BP Source: Arm, Right Upper Arm, Left Upper Patient Position: Sitting Sitting Pulse: 64 57 Temp: 36.4 C (97.5 F) TempSrc: Oral Weight: 61.2 kg (135 lb) Height: 165.1 cm (65") PainSc: Seven Body mass index is 22.47 kg/m. Right Brachial Systolic: 186 Left Brachial Systolic: 139 Right ANDRES: 0.35 Left ANDRES: 0.19 Physical Exam Vitals and nursing note reviewed. Exam conducted with a machine cloth examiner present. Constitutional: General: She is not in acute distress. Appearance: Normal appearance. She is well-developed, well-groomed and normal weight. She is ill-appearing. She is not diaphoretic. HENT: Head: Normocephalic. Eyes: General: Right eye: No discharge. Left eye: No discharge. Neck: Vascular: Carotid bruit present. Trachea: Phonation normal. No tracheal tenderness. Cardiovascular: Rate and Rhythm: Normal rate and regular rhythm. Pulses: Carotid pulses are 2+ on the right side with bruit and 2+ on the left side with bruit. Dorsalis pedis pulses are detected w/ Doppler on the right side and detecte d w/ Doppler on the left side. Posterior tibial pulses are detected w/ Doppler on the right side and detec henny w/ Doppler on the left side. Heart sounds: Normal heart sounds. Comments: Her bilateral wrists have bruising related to attempts at radial ar bassem access for cardiac catheterization. She has a week right radial pulse. She has a good left ulnar pulse. She has absent femoral pulses bilaterally. Pulmonary: Effort: Pulmonary effort is normal. No respiratory distress. Breath sounds: Normal breath sounds. Abdominal: Palpations: Abdomen is soft. Tenderness: There is no abdominal tenderness. Comments: Her bilateral groins have resolving bruising from attempts at arter ial access for her cardiac cath. Musculoskeletal: General: Normal range of motion. Cervical back: Normal range of motion and neck supple. Right lower leg: No edema. Left lower leg: No edema. Right foot: Normal range of motion. No deformity. Left foot: Normal range of motion. No deformity. Feet: Right foot: Skin integrity: Skin integrity normal. No ulcer, blister, skin breakdown or e rythema. Toenail Condition: Fungal disease present. Left foot: Skin integrity: Skin integrity normal. No ulcer, blister, skin breakdown or e rythema. Toenail Condition: Fungal disease present. Comments: Her feet actually appear pretty healthy with no areas of breakdown, pressure wounds or calluses. Skin: General: Skin is warm and dry. Capillary Refill: Capillary refill takes 2 to 3 seconds. Coloration: Skin is not cyanotic or mottled. Neurological: General: No focal deficit present. Mental Status: She is alert. Motor: Motor function is intact. Coordination: Coordination is intact. Gait: Gait is intact. Comments: Her enterprise application administrator strength is equal bilaterally. Psychiatric: Attention and Perception: Attention normal. Mood and Affect: Mood normal. Speech: Speech normal. Behavior: Behavior normal. Behavior is cooperative. Thought Content: Thought content normal. Assessment and Plan: 1. PAD (peripheral artery disease) (HCC) VAS US NONINVASIVE LOWER EXT PVR 2. Bilateral carotid artery stenosis VAS US DUPLEX SCAN CAROTID BILATERAL 3. History of TIA (transient ischemic attack) 4. Essential hypertension 5. Hyperlipidemia, unspecified hyperlipidemia type She has severe peripheral vascular disease with history of an occluded aorta and severely diminished ABIs bilaterally. Fortunately, her feet remain healthy wit hout any areas of tissue breakdown or loss. She also has severe bilateral carot id disease with a history of TIA reportedly that occurred in May of this year w here she has had on and off left arm and leg numbness and she had an episode whe re she "could not talk". She has an occluded right internal carotid artery and 70 to 99% stenosis on the left with a ratio of 14.9. She has not had any additi onal TIA symptoms since May when she was also started on 3 L of oxygen by nasal cannula. Dr. Lei visited with her regarding her symptoms, test results and r ecommendations for care going forward. He discussed the risks to her heart and lungs and risk of with a surgical procedure. He discussed the increased r isk of stroke associated with a history of TIA. At this time, the recommendation is to continue medical management of her vascul ar disease. She should continue her Plavix and Lipitor daily. We can follow-up again in 1 year with ABIs, carotid ultrasound and office visit at that time. She is to monitor for TIA and strokelike symptoms and if she has any more sympto ms, she is supposed to go to the emergency room and notify us of the symptoms. W e will reconsider plan of care at that point in time. We gave her information on critical limb ischemia, TIA and stroke on her visit floyd sultana. Berta Williamson APRN-PAULINO ATTESTATION I personally performed the kraft portions of the E/M visit, discussed case with Nu rse Practitioner and concur with documentation of history, physical exam, assess ment, and treatment plan unless otherwise noted. She is a 66 yo female with severe COPD, cardiomyopathy, hypertension, peripheral artery disease, and carotid vascular disease returns for follow up. She had an episode of left arm and leg numbness as well as difficulty with speaking that l asted a few minutes. She has a long history of critical carotid stenosis as wel l as severe peripheral artery disease. She had carotid ultrasound that showed e vidence of occluded right internal carotid artery as well as critical left inter nal carotid stenosis. She has been on supplemental oxygen for the last few marilu hs. She denies any chest pain at this time. Would continue maximum medical management with clopidogrel as well as good blood pressure and cholesterol control. Would typically recommend CT angiogram and p ossible intervention for her critical carotid stenosis, but her severe COPD and other medical problems increase risk of any intervention. Would subsequently co ntinue with medical management alone. Staff name: Aaron Lei MD Date: 08/03/2021 documented in this encounter Plan of Treatment Not on filedocumented as of this encounter Results * VAS US NONINVASIVE LOWER EXT PVR (07/31/2021) Specimen Narrative Performed At [facility] RESULTS GIVEN IN OFFICE BY DR. GENIE SHANNON 08/01/21 Performing Organization Address City/State/ZIP Code P stewart Number [facility] * VAS US DUPLEX SCAN CAROTID BILATERAL (07/31/2021) Specimen Narrative Performed At [facility] RESULTS GIVEN IN OFFICE BY DR. GENIE SHANNON 08/01/21 Performing Organization Address City/State/ZIP Code P stewart Number [facility] documented in this encounter Visit Diagnoses Diagnosis PAD (peripheral artery disease) (HCC) - Primary Peripheral vascular disease, unspecifie d Bilateral carotid artery stenosis Occlusion and stenosis of multiple and bilateral precerebral arteries without mention of cerebral infarction History of TIA (transient ischemic christos ck) Transient ischemic attack (TIA), and ce rebral infarction without residual deficits Essential hypertension Unspecified essential hypertension Hyperlipidemia, unspecified hyperlipide genesis type documented in this encounter Discontinued Medications Start Date End Date Medication Sig Discontinue Reason 07/31/2021 aspirin EC 81 mg tablet Take 81 mg Patient's by mouth Choice daily. Take with food. 09/21/2016 07/31/2021 calcium carbonate (TUMS) Chew 1 Tab Patient's 500 mg (200 mg elemental by mouth Choice calcium) chewable tablet daily. 09/21/2016 07/31/2021 senna (SENOKOT) 8.6 mg Take 1 Tab Patient's tablet by mouth Choice daily. 09/21/2016 07/31/2021 zinc sulfate 220 mg (50 Take 1 Cap Patient's mg elemental zinc) by mouth Choice capsule daily. documented as of this encounter Historical Medications * This list may reflect changes made after this encounter. Start Date End Date Medication Sig Dispensed Refills 05/08/2021 furosemide (LASIX) 20 mg Take 20 mg by 0 tablet mouth daily. 05/08/2021 potassium chloride Take 10 mEq 0 (KLOR-CON 10) 10 mEq by mouth tablet daily. 06/05/2021 sucralfate (CARAFATE) 1 TAKE 1 TABLET 0 gram tablet BY MOUTH BEFORE MEAL(S) AND AT BEDTIME 07/30/2021 ondansetron (ZOFRAN ODT) 0 4 mg rapid dissolve tablet 06/03/2021 budesonide (UCERIS) 9 mg Take 9 mg by 0 ER tablet mouth daily. added in this encounter Additional Health Concerns Assessment Noted Time A fall risk assessment has been completed for the pat ient 07/31/2021 10:12 AM CDT PHQ-2 Depression Total Score: 0 07/31/2021 10:12 AM CDT documented as of this encounter
--- OUTSIDE RECORDS SUMMARY | 2021-08-15 11:43 | XMS REPORT | Encounter Summary ---
Author Author [facility] Organization [facility] Address Unknown Phone Unavailable Care Team Providers Care Seat Maker Name Role Phone No Pcp, Na PCP Unavailable Aaron Lei MD Unavailable Cj Antony MD Unavailable Reason for Visit * Reason Comments Precertification medicare Encounter Details Care Team Description Date Type Department Blas Rebolledo RN Precertification (medicare) 07/31/2021 Documentation Cardiology: [facility] [address] [place] [address] Social History Date Tobacco Use [...] impairment: No documented as of this encounter Progress Notes * Blas Rebolledo RN - 07/31/2021 3:20 PM CDT Medicare is listed as patient's primary insurance coverage. Pre-certification i s not required for hospitalizations. documented in this encounter Plan of Treatment [...]
--- OUTSIDE RECORDS SUMMARY | 2021-08-15 11:43 | XMS REPORT | Encounter Summary ---
Author Author [facility] Organization [facility] Address Unknown Phone Unavailable Care Team Providers Care Salesperson Trailers And Motor [employer] Name Role Phone No Pcp, Na PCP Unavailable Aaron Lei MD Unavailable Cj Antony MD Unavailable Encounter Details Care Team Description Date Type Department 07/31/2021 Travel Social History Date Tobacco Use Types [...]
--- OUTSIDE RECORDS SUMMARY | 2021-08-15 11:43 | XMS REPORT | Encounter Summary ---
Author Author [facility] Organization [facility] Address Unknown Phone Unavailable Care Team Providers Care Network And Threat Support Specialist Name Role Phone No Pcp, Na PCP Unavailable Aaron Lei MD Unavailable Cj Antony MD Unavailable Reason for Visit * Reason Comments Records Request Encounter Details Care Team Description Date Type Department Yenni Peguero, LU Records Request 07/31/2021 Documentation Cardiology: [facility] [address] [place] [address] Social History Date Tobacco Use [...] as of this encounter Progress Notes * Yenni Peguero RN - 07/31/2021 3:56 PM CDT Labs received, will enter and scan to chart * Yenni Peguero RN - 07/31/2021 3:56 PM CDT Please fax over the following for continuation of care: Faxed to Dr. Antony's off ice Recent Labs including CBC and BMP Patient has an upcoming appointment with Dr. Tex Ascencio. . ATTN: LU [facility]yman/Dr. Ascencio Please send records as soon as possible. Thanks! documented in this encounter Plan of Treatment Not on filedocumented as of this encounter Procedures Comments Procedure Name Priority Date/Time Associated Diag nosis CBC Routine 07/23/2021 LIPID PROFILE Routine 07/23/2021 BASIC METABOLIC PANEL Routine 07/23/2021 documented in this encounter Results * LIPID PROFILE (07/23/2021) Cholesterol 102 OTHER OUTSIDE LAB Triglycerides 76 OTHER OUTSIDE LAB HDL 41 OTHER OUTSIDE LAB LDL 39 OTHER OUTSIDE LAB VLDL 15 OTHER OUTSIDE LAB Non HDL OTHER OUTSIDE Cholesterol LAB Cholesterol/HDL OTHER OUTSIDE Ratio LAB Specimen Blood - Blood Performing Organization Address City/State/ZIP Code P [place] Number OTHER OUTSIDE LAB * BASIC METABOLIC PANEL (07/23/2021) Sodium 138 OTHER OUTSIDE LAB Potassium 4.0 OTHER OUTSIDE LAB Chloride 106 OTHER OUTSIDE LAB CO2 21 OTHER OUTSIDE LAB Blood Urea 14 OTHER OUTSIDE Nitrogen LAB Creatinine 0.86 OTHER OUTSIDE LAB Glucose 127 OTHER OUTSIDE LAB Calcium 9.8 OTHER OUTSIDE LAB eGFR Non >60 OTHER OUTSIDE LAB Mal[place]ian eGFR >60 OTHER OUTSIDE [place]ian LAB Anion Gap 11 OTHER OUTSIDE LAB Specimen Blood - Blood Performing Organization Address City/State/ZIP Code P [place] Number OTHER OUTSIDE LAB * CBC (07/23/2021) White Blood 7.9 OTHER OUTSIDE Cells LAB RBC 3.6 OTHER OUTSIDE LAB Hemoglobin 9.2 OTHER OUTSIDE LAB Hematocrit 31 OTHER OUTSIDE LAB MCV 85 OTHER OUTSIDE LAB MCH 26 OTHER OUTSIDE LAB MCHC 30 OTHER OUTSIDE LAB Platelet Count 294 OTHER OUTSIDE LAB MPV 10.7 OTHER OUTSIDE LAB RDW 17.8 OTHER OUTSIDE LAB Specimen Blood - Blood Narrative Performed At This result has an attachment that is n ot available. Performing Organization Address City/State/ZIP Code P stewart Number OTHER OUTSIDE LAB documented in this encounter Visit Diagnoses Not on filedocumented in this encounter Additional Health Concerns Assessment Noted Time A fall risk assessment has been completed for the pat ient 07/31/2021 10:12 AM CDT PHQ-2 Depression Total Score: 0 07/31/2021 10:12 AM CDT documented as of this encounter
--- OUTSIDE RECORDS SUMMARY | 2021-08-15 11:43 | XMS REPORT | Encounter Summary ---
Author Author [facility] Organization [facility] Address Unknown Phone Unavailable Care Team Providers Care Platform Worker Name Role Phone No Pcp, Na PCP Unavailable Aaron Lei MD Unavailable Cj Antony MD Unavailable Reason for Visit * Reason Comments Carotid Disease * Radiology Services (Routine) Referred By Contact Referred To Contact Status Reason Specialty Diagnoses / Procedures Aaron Lei MD [address] [place] [address] Closed Radiology Diagnoses Bilateral carotid artery stenosis P rocedures US DUPLEX SCAN CAROTID BILATERAL Encounter Details Care Team Description Date Type Department Aaron Lei MD [address] [place], [place] [id number] Bilateral carotid artery stenosis 07/31/2021 Clinical Surgery: [facility] [place] [facility] [address] [place] [address] Social History Date Tobacco Use [...] filedocumented as of this encounter Visit Diagnoses Diagnosis Bilateral carotid artery stenosis Occlusion and stenosis of multiple and bilateral precerebral arteries without mention of cerebral infarction documented in this encounter Orders First Ordered Date Imaging Orders Without Results Count Last Or dered Date US DUPLEX SCAN CAROTID BILATERAL 1 08/07 documented in this encounter Additional Health Concerns Assessment Noted Time A fall risk assessment has been completed for the pat ient 07/31/2021 10:12 AM CDT PHQ-2 Depression Total Score: 0 07/31/2021 10:12 AM CDT documented as of this encounter
--- OUTSIDE RECORDS SUMMARY | 2021-08-15 11:43 | XMS REPORT | Encounter Summary ---
Author Author [facility] Organization [facility] Address Unknown Phone Unavailable Care Team Providers Care Is Project Manager Name Role Phone No Pcp, Na PCP Unavailable Aaron Lei MD Unavailable Cj Antony MD Unavailable Reason for Visit * Reason Onset Date Comments Patient Questions 08/04/2021 Encounter Details Care Team Description Date Type Department Cayla Olivas RN Patient Questions 08/04/2021 Telephone Cardiology: [facility] [address] [place] [address] Social History Date Tobacco Use [...] impairment: No documented as of this encounter Miscellaneous Notes * Telephone Encounter - Cayla Olivas RN - 08/04/2021 9:04 AM CDT Patient was going to have COVID swab done locally and wanted us to fax order. [facility] in [facility]. . documented in this encounter Plan of Treatment [...]
--- OUTSIDE RECORDS SUMMARY | 2021-08-15 11:43 | XMS REPORT | Encounter Summary ---
Author Author [facility] Organization [facility] Address Unknown Phone Unavailable Care Team Providers Care Incident Response Engineer Name Role Phone Aaron Lei MD Unavailable Cj Antony MD Unavailable Nereida Campbell NP PCP Reason for Visit * Reason Comments History And Physical Stent inpalnt today * Consult, Test & Treat (Routine) Referred By Contact Referred To Contact Status Reason Specialty Diagnoses / Procedures Cj Antony MD [address] [place] [address] Pending Review Cardiology Diagnoses PAD (peripheral artery disease) (HCC) CAD (coronary artery disease) Encounter Details Care Team Description Date Type Department Tex Ascencio MD [address] [facility] [address] [place] [address] History And Physical (Stent inpalnt toda y) 08/06/2021 Office Visit Cardiology: [facility] [address] [facility] [place] [address] Social History Date Tobacco Use [...] Signs Reading Time Taken Comments Vital Sign 124/72 08/06/2021 7:12 AM CDT Blood Pressure 59 08/06/2021 7:12 AM CDT Pulse - - Temperature - - Respiratory Rate - - Oxygen Saturation - - Inhaled Oxygen Concentration 59 kg (130 lb) 08/06/2021 7:12 AM CDT Weight 165.1 cm (5' 5") 08/06/2021 7:12 AM CDT Height 21.63 08/06/2021 7:12 AM CDT Body Mass Index documented in [...] as of this encounter Progress Notes * Tex Ascencio MD - 08/06/2021 7:30 AM CDT Date of Service: 08/06/2021 Ilir Mcwilliams is a 66 y.o. female. KI Kaye is a 65-year-old female with a [...] prompted her to be evaluated by her wealth management consultant in [facility]. They attempted a cardiac catheterization on July 23 and were unable to [...] recommendation of medical management. Given the extent of her vascular disease and underlying comorbidities optimizing medical management has been the primary recommendation. Given her more unstable sounding symptoms, I do agree with attempting repeat cardiac [...] left ventricular diastolic dysfunction. Elevated left atrial pressure , Mild concentric LV hypertrophy, Moderately elevated central venous pressure, M oderate mitral regurgitation, Mild to moderate tricuspid regurgitation, Estimate d Peak Systolic PA Pressure = 45 mmHg COPD (chronic obstructive pulmonary disease) (HCC) 09/11/2016 [address] on [address]. Inhalers albuterol Results for ILIR MCWILLIAMS ( ) as of 01/16/2019 08:31 Ref. Range 10/30/2016 10:51 FVC-Pre Latest Units: L 3.03 FVC-%Pred-pre Latest Units: % 92 FEV1-Pre Latest Units: L 2.48 FEV1-%Pred-Pre Latest Units: % 98 [id number]-Pre Latest Units: % 112 RVPleth-Pre Latest Units: [...] ml/min/mmHg 21.46 ERVSVC-Pre Latest Units: L 0.67 [id number] Latest Units: L/sec 2.58 ICSVC-Pre Latest Units: [...] s: Cigarettes Essential hypertension 09/11/2016 Alcoholic cirrhosis (HCC) 09/11/2016 Tobacco abuse 09/11/2016 Ulcer of left lower leg (HCC) 09/11/2016 CAD (coronary artery disease), [place] coronary artery 09/10/2016 09/09/16: Cath by Dr. Foss: 70% left main, 40-50% CFX 09/18/16: PCI of the left main proximal & ostium with a 4.0 x 12 Xience stent. PCI of the mid LAD with a 2.5 x 23 Xience stent. 10-08-16-Cath-Stents widely patent in the left main and mid LAD NSTEMI (non-ST elevated myocardial infarction) ([facility]) 09/10/2016 Hyperglycemia 09/10/2016 Chronic respiratory failure ([facility]) 09/10/2016 Carotid artery stenosis 09/10/2016 09/09/16: Carotid ultrasound shows critical right internal carotid stenosis 05-31-18-Carotid doppler-The right proximal and mid internal [...] Rectal prolapse 09/08/2016 PAD (peripheral artery disease) ([facility]) 09/04/2016 09/09/16: Cath and AARO by Dr. [...] Diagnoses Name Primary? Coronary artery disease of [place] artery of [place] heart with stable angina pectoris ([facility]) Yes PAD (peripheral artery disease) ([facility]) Nonrheumatic mitral valve regurgitation Chronic systolic heart failure ([facility]) Assessment and Plan 1. Coronary artery disease-her last cardiac catheterization was in 2018 which re vealed diffuse disease involving the [...] tab Take 1 Tab by mouth daily. documented in this encounter Plan of Treatment Order Schedule Name Type Priority Associated Diag noses Ordered: 08/06/2021 ECG 12-LEAD ECG Routine Coronary artery disease of [place] artery of [place] heart with stable angina pectoris (HCC) PAD (peripheral artery disease) (HCC) Expected: 08/06/2021 (Approximate), Expi res: 08/06/2022 LIPOPROTEIN A Lab Routine Coronary artery disease of [place] artery of [place] heart with stable angina pectoris (HCC) PAD (peripheral artery disease) (HCC) documented as of this encounter Visit Diagnoses Diagnosis Coronary artery disease of [place] arter y of [place] heart with stable angina pectoris (HCC) - Primary PAD (peripheral artery disease) (HCC) Peripheral vascular disease, unspecifie d Nonrheumatic mitral valve regurgitation Chronic systolic heart failure (HCC) Chronic systolic heart failure documented in this encounter Additional Health Concerns Assessment Noted Time A fall risk assessment has been completed for the pat ient 08/06/2021 6:00 PM CDT PHQ-2 Depression Total Score: 0 08/06/2021 7:14 AM CDT documented as of this encounter
--- OUTSIDE RECORDS SUMMARY | 2021-08-15 11:43 | XMS REPORT | Encounter Summary ---
Author Author [facility] Organization [facility] Address Unknown Phone Unavailable Care Team Providers Care Saw Edge Fuser Circular Name Role Phone No Pcp, Na PCP Unavailable Aaron Lei MD Unavailable Cj Antony MD Unavailable Reason for Visit * Reason Comments Lab Results COVID Encounter Details Care Team Description Date Type Department Yenni Peguero, sole leveler machine Results (COVID) 08/05/2021 Documentation Cardiology: [facility] [address] [place] [address] Social History Date Tobacco Use [...] Procedure Name Priority Date/Time Associated Diag nosis COVID-19 (SARS-COV-2) PCR Routine 08/04/2021 [place] unter for screening laboratory testing for COVID-19 virus in asymptomatic patient documented in this encounter Results * COVID-19 (SARS-COV-2) PCR (08/04/2021) COVID-19 Negative OTHER OUTSIDE (SARS-CoV-2) LAB PCR COVID-19 OTHER OUTSIDE (SARS-CoV-2) LAB PCR Source Specimen Flocked Swab - Nasopharyngeal Narrative Performed At This result has an attachment that is n ot available. Performing Organization Address City/State/ZIP Code P stewart Number OTHER OUTSIDE LAB documented in this encounter Visit Diagnoses Diagnosis Encounter for screening laboratory test ing for COVID-19 virus in asymptomatic patient documented in this encounter Additional Health Concerns Assessment Noted Time A fall risk assessment has been completed for the pat ient 07/31/2021 10:12 AM CDT PHQ-2 Depression Total Score: 0 07/31/2021 10:12 AM CDT documented as of this encounter
--- OUTSIDE RECORDS SUMMARY | 2021-08-15 11:43 | XMS REPORT | Encounter Summary ---
Author Author [facility] Organization [facility] Address Unknown Phone Unavailable Care Team Providers Care Lithographic Press Operator Apprentice Name Role Phone No Pcp, Na PCP Unavailable Aaron Lei MD Unavailable Cj Antony MD Unavailable Reason for Visit * Reason Comments Peripheral Artery Disease * Radiology Services (Routine) Referred By Contact Referred To Contact Status Reason Specialty Diagnoses / Procedures Aaron Lei MD [address] [place] [address] Closed Radiology Diagnoses PAD (peripheral artery disease) (HCC) P rocedures US NONINVASIVE LOWER EXT PVR Encounter Details Care Team Description Date Type Department Aaron Lei MD [address] [place], [place] [phone] PAD (peripheral artery disease) (HCC); Bilateral carotid artery stenosis 07/31/2021 Clinical Surgery: [facility] [facility] [address] [place] [address] Social History Date Tobacco Use [...] Procedure Name Priority Date/Time Associated Diag nosis VAS US DUPLEX SCAN Routine 07/31/2021 Bilateral c arotid artery CAROTID BILATERAL stenosis VAS US NONINVASIVE LOWER Routine 07/31/2021 PAD ( peripheral artery EXT PVR disease) (HCC) documented in this encounter Results * VAS US DUPLEX SCAN CAROTID BILATERAL (07/31/2021) Specimen Narrative Performed At [facility] RESULTS GIVEN IN OFFICE BY DR. GENIE SHANNON 08/01/21 Performing Organization Address City/State/ZIP Code P stewart Number [facility] * VAS US NONINVASIVE LOWER EXT PVR (07/31/2021) Specimen Narrative Performed At [facility] RESULTS GIVEN IN OFFICE BY DR. GENIE SHANNON 08/01/21 Performing Organization Address City/State/ZIP Code P stewart Number [facility] documented in this encounter Visit Diagnoses Diagnosis PAD (peripheral artery disease) (HCC) Peripheral vascular disease, unspecifie d Bilateral carotid artery stenosis Occlusion and stenosis of multiple and bilateral precerebral arteries without mention of cerebral infarction documented in this encounter Orders First Ordered Date Imaging Orders Without Results Count Last Or dered Date US NONINVASIVE LOWER EXT PVR 1 1 documented in this encounter Additional Health Concerns Assessment Noted Time A fall risk assessment has been completed for the pat ient 07/31/2021 10:12 AM CDT PHQ-2 Depression Total Score: 0 07/31/2021 10:12 AM CDT documented as of this encounter
--- OUTSIDE RECORDS SUMMARY | 2021-08-15 11:43 | XMS REPORT | Encounter Summary ---
Author Author [facility] Organization 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 Date/Time Status Location OR Service Patient Class Case Class Case Type 08/06/21 Posted HC2 [facility] CV Lab 01 Interventi Planned El ective - 9:50 AM onal Extended Treating Cardiology Recovery conditions that are not life or limb threatenin g Panel 1 Procedure LRB Anes Op Region Wound Class Com ments ANGIOGRAPHY CORONARY N/A Sedation ARTERY WITH LEFT HEART CATHETERIZATION PERCUTANEOUS CORONARY N/A Sedation STENT PLACEMENT WITH ANGIOPLASTY Panel Surgeon Surgeon Role Service 1 Geni Ascencio MD Primary Interventional Card iology Social History Date Tobacco Use Types Packs/Day [...] Signs Reading Time Taken Comments Vital Sign 177/52 08/06/2021 9:00 AM CDT Blood Pressure 49 08/06/2021 9:00 AM CDT Pulse 36.9 C (98.5 F) 08/06/2021 9:00 AM CDT Temperature - - Respiratory Rate 100% 08/06/2021 9:00 AM CDT Oxygen Saturation - - Inhaled [...] to speak with someone? During Business Hours: [facility] Cardiology Office at the [facility]: (Wednesday-Wednesday) [place]:[phone] (Wednesday-Wednesday) [place]: [phone] (Wednesday-Wednesday) [place]: [phone] (Wednesday and ) [place]: [phone] (Wednesday-Wednesday) [facility] [address]: [phone] (Wednesday, Wednesday and Wednesday) [place]:[phone] (Wednesday, Wednesday and Wednesday) Nights and Weekends [facility] Cardiology Office at the [facility]: Thisinformation is meant to serve as a resource to you and your family. It i s not meant to be all inclusive. The members of the [facility] at [facility] Cardiology, , will be glad to answe [...] lobby via RN. Patient to follow up [facility][1] Cardiology ([facility]) or on-call physician with any additional questio ns or concerns. All contact numbers provided. Patient and family acceptant of DC instuctions and report understanding to all information. * Maryse Lin APRN-NP - 08/07/2021 7:51 AM CDT Post Cardiac Procedure Progress Note Name: Mikki Mcwilliams : 1955 Age: 66 y.o. Admit Date: 08/06/2021 Discharge Date: 08/07/21 Attending Physician: Dr. Geni Ascencio MD Service: Med-Cardiovascular Reason for hospitalization: cardiac catheterization Hospital Problems Principal Problem: Coronary artery disease due to lipid rich plaque Active Problems: PAD (peripheral artery disease) (HCC) CAD (coronary artery disease), hoopa coronary artery Essential hypertension Admission Lab/Radiology studies [...] prompted her to be evaluated by her podiatric medicine doctor in [facility]. They attempted a cardiac catheteriz ation on [...] of a 2.0 x 30 mm Resolute Eldora drug-eluting stent, which was post dil ated [...] intervention. She will follow up with her [facility] podiatric medicine doctor in one month. She was monitored overnight [...] Follow up: 1 month with her primary podiatric medicine doctor Dr. Cassia MD DAPT/Anticoagulation: Start Aspirin 81mg [...] Resolute Brad drug-eluting stent, which was post dilated with a 3.0 NC balloon. 2. 70% to 80% stenosis in mid first obtuse marginal vessel, status post percutan eous intervention with placement of a 2.5 x 12 mm Resolute Eldora drug-eluting madison nt. 3. Residual 80% calcified [...] recommendations Mikki Mcwilliams Admission Date: 08/06/2021 LOS: @CAROL@ Blood Pressure Risk Goal: Keep blood pressure [...] To register for smoking cessation program call [phone] or visit www.smokefree.gov Diabetes Risk Goal: Non-diabetic: Below 5.7% Goal [...] home, you can call crispin dunham at [phone] Physical Activity Risk Goal: Patients should have approval by a physician prior to beginning an exercis e program. Plan: Try to get at least 30 minutes of moderate physical activity five days a w [place] or 20 minutes of vigorous physical activity [...] HOURS (8:00 AM - 4:30 PM): Call [phone] and asked to be transferred to your discharge attending michael narvaez. - AFTER BUSINESS HOURS (4:30 PM - 8:00 AM, on weekends, or holidays): Call [phone] and ask the pulling machine operator to page the on-call doctor for the discha rge attending physician. Discharging attending physician: GENI ASCENCIO [[id number]] Procedure Specific Activity *May return to work/school [...] you to outpatient cardiac rehab. Contact [facility] Cardiac Rehab Department at [phone] to schedule an appointment. Current Discharge Medication [...] Pre-admit Dx: Date of Admission: 08/06/2021 Room: 2 CVLAB RM/2 CVLAB BD : 1955 Insurance: Primary: Medicare UHC Secondary: [facility] Address: [address] [place] [id number] Patient (home) Marital Status: Occupation: Retired ED Contact: Alice Mcwilliams ED Phone #: [phone] CTS: ZENY Audio Visual Technician: Sonu Cardiac Procedures and Events PCI: 08/06/21 Risk Factors BP: (!) 156/52 Medical History has a past medical history of Alcoholic cirrhosis (HCC) (09/11/2016), CAD (arlen nary artery disease), hoopa coronary artery (09/10/2016), Carotid artery stenos is (09/10/2016), Chronic diastolic (congestive) heart failure (HCC) (09/11/2016) , Chronic respiratory failure (HCC) (09/10/2016), Cirrhosis of liver (HCC) (1997 ), COPD (chronic obstructive pulmonary disease) (HCC) (09/11/2016), Essential hy pertension (09/11/2016), Gastroesophageal reflux disease with esophagitis (2015), Hepatitis A (1997), History of alcohol abuse, HTN (hypertension), Mitral regurgitation (09/10/2016), PAD (peripheral artery disease) ([facility]), Stroke (HCC), Tobacco abuse (09/11/2016), and Tricuspid [...] Teaching Completed: 08/07/21 Outpatient Cardiopulmonary Rehabilitation Outpatient [facility] Rehab: No Referral Faxed to: Date Faxed: [...] 0700 4. Instructed to check-in at the [facility] registration desk and bring phot o id, insurance cards and a current list of home medications. Pack an overnight bag in the event you are admitted overnight:n 5. If you have a history of sleep apnea and use a C-Pap or Bi-Pap machine, pleas e bring it with you to the hospital:n 6. Have a solo truck driver available upon discharge as you may not be cleared to drive for 24 or 48 hours post procedure. (exception is RHC/biopsy patient with internal j ugular approach not receiving sedation): y 7. If the patient's language preference is other than Sri Lankan, please indicated hoopa language and need for riprap placer: n 8. Patient instructed to drink 64 [...] acknowledges understanding of pre-procedure instructions: y bruce Pineda ED documented in this encounter H&P Notes * Maryse Lin APRN-ENVELOPE ADJUSTER - 08/06/2021 9:10 AM CDT Images from the original note were not included. Patient presents for procedure. Please see History and Physical copied below fro m date of service Maryse Lin APRN Pager [phone] Geni Ascencio MD Interventional Cardiology Coronary artery disease of hoopa artery of hoopa he art with stable angina pectoris (HCC) +3 more Dx History And Physical ; Referred by Cj Antony MD Reason for Visit Progress Notes Geni Ascencio MD (Physician) Interventional Cardiology Creation Time: 08/06/2114 Signed Date of Service: 08/06/2021 Mikki Mcwilliams is a 66 y.o. female. KI [...] her to be evaluated b y her podiatric medicine doctor in [facility]. They attempted a cardiac catheterizati on on [...] 45 mmHg COPD (chronic obstructive pulmonary disease) ([facility]) 09/11/[address]. Inhalers albuterol Results for MIKKI MCWILLIAMS ( ) as of 01/16/2019 08:31 Ref. Range 10/30/2016 10:51 FVC-Pre Latest Units: L 3.03 FVC-%Pred-pre Latest Units: % 92 FEV1-Pre Latest Units: L 2.48 FEV1-%Pred-Pre Latest Units: % 98 [id number]-%Pred-Pre Latest Units: % 112 RVPleth-Pre Latest Units: [...] ml/min/mmHg 21.46 ERVSVC-Pre Latest Units: L 0.67 [id number] Latest Units: L/sec 2.58 ICSVC-Pre Latest Units: [...] s: Cigarettes Essential hypertension 09/11/2016 Alcoholic cirrhosis ([facility]) 09/11/2016 Tobacco abuse 09/11/2016 Ulcer of left lower leg ([facility]) 09/11/2016 CAD (coronary artery disease), hoopa coronary artery 09/10/2016 09/09/16: Cath by Dr. Foss: 70% left main, 40-50% CFX 09/18/16: PCI of the left main proximal & ostium with a 4.0 x 12 Xience stent. PCI of the mid LAD with a 2.5 x 23 Xience stent. 10-08-16-Cath-Stents widely patent in the left main and mid LAD NSTEMI (non-ST elevated myocardial infarction) ([facility]) 09/10/2016 Hyperglycemia 09/10/2016 Chronic respiratory failure ([facility]) 09/10/2016 Carotid artery stenosis 09/10/2016 09/09/16: Carotid [...] Rectal prolapse 09/08/2016 PAD (peripheral artery disease) ([facility]) 09/04/2016 09/09/16: Cath and AARO by Dr. [...] Diagnoses Name Primary? Coronary artery disease of hoopa artery of hoopa heart with stable angina pectoris ([facility]) Yes PAD (peripheral artery disease) ([facility]) Nonrheumatic mitral valve regurgitation Chronic systolic heart failure ([facility]) Assessment and Plan 1. Coronary artery disease-her [...] Take 2 Tabs by mouth twice daily. (Oscra hahn taking differently: Take 600 mg by [...] N/A 09/09/2016 Performed by Cath, Physician at [facility]RA[facility] Left Heart Catheterization Left 10/08/2016 Performed by Cath, Physician at [facility] Coronary Angiography N/A 10/08/2016 Performed by Cath, Physician at [facility]RA[facility]ER ESOPHAGOGASTRODUODENOSCOPY WITH BIOPSY - FLEXIBLE N/A 05/10/2019 Performed by Edwin Church MD at [facility]O GASTROINTESTINAL TRACT IMAGING ESOPHAGUS THROUGH ILEUM - INTRALUMINAL N/A Performed by Edwin Church MD at [facility] ANGIOGRAPHY CORONARY ARTERY WITH RIGHT AND LEFT HEART CATHETERIZATION N/A Performed by Cath, Physician at [facility] WHEEL BRAIDER POSSIBLE PERCUTANEOUS CORONARY STENT PLACEMENT WITH ANGIOPLASTY N/A 9 Performed by Cath, Physician at [facility] WHEEL [facility]RA[facility]ER CHOLECYSTECTOMY Family History Problem Relation Age of Onset Heart Failure Mother documented in this encounter Procedure Notes * Leora Nj MBBS - 08/06/2021 6:47 PM CDT Associated Order(s): CARDIAC CATH REPORT [facility] at [facility] CARDIAC CATHETERIZATION REPORT Page 2 MIKKI Huynh : 1955 KU#: [id number] SIRISHA MR #/Billing ID #: [id number] / [id number] DATE: 08/06/2021 REPLANTING MACHINE CREW: Geni Ascencio MD DICTATING PROVIDER: Leora Nj MD REFERRING PHYSICIAN: Geni Ascencio MD MEDICAL DEVICE ASSEMBLER: Dr. Geni Ascencio INDICATION FOR PROCEDURE: Ms. [...] by me, my attending, and clinical laboratory assistant staff. Blood pressure, oxygen level , heart [...] ultrasound gu idance. Over the wire, a 6-New Zealander Slender sheath was introduced. 4000 units of heparin were administered intravenously, and then 200 mcg of nitroglycerin and 2.5 mg of verapamil were administered intra-arterially once access was obtained. Subsequently, we utilized TIG 4 catheter and performed left heart catheterizat ion and selective right coronary angiography. A JL 3.5 catheter was used to per form selective angiography of the left system. A 6-New Zealander EBU 3.5 guide was use d for PCI of obtuse marginal vessel, the details of which are below. At the end of the procedure, all catheters and wires were removed. Patient received a TR Band in the right wrist area. Patient was transported back to [facility] in h emodynamically stable and pain-free state. [...] MARGINAL VESSEL: For this pu rpose, a 6-New Zealander EBU 3.5 guide was used to engage [...] to difficulty in advancing the balloon, a 6-New Zealander Teleflex GuideLin er was then advanced into the proximal left main for additional support. A 2.0 x 15 mm Takeru balloon was then inflated across the proximal obtuse marginal art elyse lesion at 14 atmospheres. This was followed by a 2.0 x 20 mm NC [place] balloo n, which was inflated in the proximal OM at 18 atmospheres. A 2.0 x 30 mm Eldora drug-eluting stent was then attempted to be advanced across the target lesion, b ut there was difficulty in delivering the stent. A 0.014 Grand [place]lam wire was th en advanced into the midportion of the obtuse marginal vessel for additional sup port. A 2.25 x 20 mm NC [place] balloon was then inflated at 6 atmospheres and def lated to help advancement of the GuideLiner into proximal portion of the obtuse marginal vessel. The lesion was predilated again with a 2.5 x 15 mm NC [place] bal loon at 16 atmospheres. A 2.0 x 30 mm Brad drug-eluting stent was then deployed across the culprit lesion and proximal obtuse marginal vessel at 18 atmospheres . The stent was post dilated with a 2.5 x 20 mm NC [place] balloon at 20 atmospher es. The Grand Slam wire was removed prior to stent deployment. A 2.5 x 20 mm N C [place] balloon was then used to predilate the mid obtuse marginal vessel lesion at 20 atmospheres. A 2.5 x 12 mm Brad drug-eluting stent then deployed across t he mid obtuse marginal lesion at 14 atmospheres. A 3.0 x 12 mm [place] balloon was then used to post dilate [...] Resolute Brad drug-eluting stent, which was post dilated with a 3.0 NC balloon. 2. 70% to 80% stenosis in mid first obtuse marginal vessel, status post percutan eous intervention with placement of a 2.5 x 12 mm Resolute Brad drug-eluting madison nt. 3. Residual 80% calcified [...] prior to discharge. Geni Ascencio MD ISMAEL/MedQ /[id number] cc: - Geni Ascencio MD documented in [...] a rtery disease 8:27 AM CDT involving hoopa coronary artery of hoopa heart with angina pectoris (HCC) TELEMETRY STRIPS-SCAN 08/06/2021 12:00 AM CDT ECG-SCAN 08/06/2021 12:00 AM CDT ECG-SCAN 08/06/2021 12:00 AM CDT PROCEDURE RECORD-SCAN 08/06/2021 12:00 AM CDT CARDIAC CATH REPORT Routine 07/31/2021 Coronary a rtery disease 3:14 PM CDT involving hoopa coronary artery of hoopa heart with angina pectoris (HCC) documented in [...] >60 >60 mL/min [facility] Comment: [place] The eGFR is not validated f or use in drug dosing adjustments. Continue to use estimated creatinine clearance per dosing reference text. Please contact the Clinical Pharmacist for questions. eGFR >60 >60 mL/min [facility] [place] Comment: The eGFR is not validated for use in drug dosing adjustments. Continue to use estimated creatinine clearance per dosing reference text. Please contact the Clinical Pharmacist for questions. Specimen Blood Performing Organization Address City/State/ZIP Code P stewart Number [facility] [id number] [place] [id number] * CBC (08/07/2021 3:48 AM CDT) White [...] MAIN LAB Specimen Blood Performing Organization Address City/[facility]/ZIP Code P stewart Number [facility] [id number] [place] [id number] * CARDIAC CATH REPORT (08/06/2021 6:47 PM CDT) Procedure Note Leora Nj MBBS - 08/06/2021 6:47 PM CDT [facility] CARDIAC CATHETERIZATION REPORT Page 2 MIKKI Huynh : 1955 KU#: [id number] [facility] MR #/Billing ID #: [id number] / [id number] DATE: 08/06/2021 REPLANTING MACHINE CREW: Geni Ascencio MD DICTATING PROVIDER: Leora Nj MD REFERRING PHYSICIAN: Geni Ascencio MD MEDICAL DEVICE ASSEMBLER: Dr. Geni Ascencio INDICATION FOR PROCEDURE: Ms. [...] by me, my attending, and clinical laboratory assistant staff. Blood pressure, oxygen level, heart rate, [...] direct ultrasound guidance. Over the wire, a 6-New Zealander Slender sheath was introduced. 4000 units of heparin were administered intravenously, and then 200 mcg of nitroglycerin and 2.5 mg of verapamil were administered intra-arterially once access was obtained. Subsequently, we utilized TIG 4 catheter and performed left heart catheterization and selective right coronary angiography. A JL 3.5 catheter was used to perform selective angiography of the left system. A 6- [place] Ze[place]ander EBU 3.5 guide was used for PCI of obtuse marginal vessel, the details of which are below. At the end of the procedure, all catheters and wires were removed. Patient received a TR Band in the right wrist area. Patient was transported back to [facility] area in hemodynamically stable and pain-free [...] OBTUSE MARGINAL VESSEL: For this purpose, a 6-New Zealander EBU 3.5 guide was used to engage [...] to difficulty in advancing the balloon, a 6-New Zealander Teleflex GuideLiner was then advanced into the proximal left main for additional support. A 2.0 x 15 mm Takeru balloon was then inflated across the proximal obtuse marginal artery lesion at 14 atmospheres. This was followed by a 2.0 x 20 mm NC [place] balloon, which was inflated in the proximal OM at 18 atmospheres. A 2.0 x 30 mm Brad drug-eluting stent was then attempted to be advanced across the target lesion, but there was difficulty in delivering the stent. A 0.014 Grand Slam wire was then advanced into the midportion of the obtuse marginal vessel for additional support. A 2.25 x 20 mm NC [place] balloon was then inflated at 6 atmospheres and deflated to help advancement of the GuideLiner into proximal portion of the obtuse marginal vessel. The lesion was predilated again with a 2.5 x 15 mm NC [place] balloon at 16 atmospheres. A 2.0 x 30 mm Brad drug-eluting stent was then deployed across the culprit lesion and proximal obtuse marginal vessel at 18 atmospheres. The stent was post dilated with a 2.5 x 20 mm NC [place] balloon at 20 atmospheres. The Grand Slam wire was removed prior to stent deployment. A 2.5 x 20 mm NC [place] balloon was then used to predilate the mid obtuse marginal vessel lesion at 20 atmospheres. A 2.5 x 12 mm Brad drug- eluting stent then deployed across the mid obtuse marginal lesion at 14 atmospheres. A 3.0 x 12 mm [place] balloon was then used to post dilate [...] of a 2.0 x 30 mm Resolute Eldora drug- eluting stent, which was post dilated with a 3.0 NC balloon. 2. 70% to 80% stenosis in mid first obtu se marginal vessel, status post percutaneous intervention with placement of a 2.5 x 12 mm Resolute Brad drug- eluting stent. 3. Residual 80% calcified [...] to dis charge. Geni Ascencio MD ISMAEL/MedQ /[id number] cc: - Geni Ascencio MD Performing Organization Address City/[facility]/ZIP Code P stewart Number OTHER OUTSIDE LAB * POC ACTIVATED CLOTTING TIME (08/06/2021 11:11 AM CDT) Activated 291 s [facility] Clotting Time Specimen Performing Organization Address City/[facility]/ZIP Code P stewart Number [facility] [id number] [place] [id number] * POC ACTIVATED CLOTTING TIME (08/06/2021 10:42 AM CDT) Activated 307 s [facility] Clotting Time Specimen Performing Organization Address City/[facility]/ZIP Code P stewart Number [facility] [address] [place] [address] * POC ACTIVATED CLOTTING TIME (08/06/2021 10:18 AM CDT) Activated 300 s [facility] Clotting Time Specimen Performing Organization Address [facility] Code P stewart Number [facility] [address] [place] [address] * CBC (08/06/2021 9:20 AM CDT) White [...] P stewart Number [facility] [id number] [place] [id number] * BASIC METABOLIC PANEL (08/06/2021 9:20 AM CDT) Sodium 139 137 - 147 MMOL/L [facility] [...] (L) >60 mL/min [facility] Comment: [place] The eGFR is not validated f or use in drug dosing adjustments. Continue to use estimated creatinine clearance per dosing reference text. Please contact the Clinical Pharmacist for questions. eGFR >60 >60 mL/min [facility] [place] Comment: The eGFR is not validated for use in drug dosing adjustments. Continue to use estimated creatinine clearance per dosing reference text. Please contact the Clinical Pharmacist for questions. Specimen Blood Performing Organization Address City/State/ZIP Code P stewart Number [facility] [id number] [place] [id number] * ECG-SCAN (08/06/2021 12:00 AM CDT) Narrative [...] disease involving nativ e coronary artery of hoopa heart with angina pectoris (HCC) documented in this encounter Admitting Diagnoses Diagnosis [...] 75 mg, Oral, DAILY, First dose on Wed08/07/21 at 0900, Until Discontinued, This Medication can [...] 08/07/21 at 0900, Until Discontinued, Admission/Obs/Extended Recovery 08/07/2021 [...] at 1150, Until Alejandrina 08/07/21 at 1208, Nausea/Vomiting Injectable 08/07/2021 8:05 AM [...] Tovar RN) 0806 (Given - Provider: Brittni Acosta, LU) amLODIPine (NORVASC) tablet 10 mg 10 mg, Oral, DAILY, First dose on Wed08/06/21 at 1500, Until Discontinued, NURSING: Please educate patient and document: Do not give with grapefruit juice., Admission/Obs/Extended Recovery 2016 (Given - Provider: Trent Greene RN) 0805 (Given - Provider: Brittni Acosta, LU) atorvastatin (LIPITOR) tablet 80 mg 80 mg, Oral, DAILY, First dose on Wed08/06/21 at 2100, Until Discontinued, Admission/Obs/Extended Recovery 1608 (Given - Provider: Anne-Marie Palacios RN) 08 (Given - Provider: Brittni Acosta RN) budesonide (ENTOCORT EC) capsule 9 mg 9 mg, Oral, DAILY, First dose on Wed08/06/21 at 1700, Until Discontinued, Admission/Obs/Extended Recovery 1609 (Given - Provider: Anne-Marie Palacios RN) 08 (Given - Provider: Brittni Acosta RN) carvediloL (COREG) tablet 6.25 mg 6.25 mg, Oral, TWICE DAILY WITH MEALS, First dose (after last modification) on Wed08/06/21 at 1600, Until Discontinued , Hold for heart rate < 50 bpm or systoli c BP < 95, Admission/Obs/Extended Recover y 0805 (Given - Provider: Brittni Acosta RN) clopiDOGrel (PLAVIX) tablet 75 mg 75 mg, Oral, DAILY, First dose on Alejandrina 08/07/21 at 0900, Until Discontinued, This Medication can increase the risk o f bleeding and may need to be held prior to surgery or invasive procedures. Consult physician in advance., Admission/Obs/Extended Recovery 08 (Given - Provider: Brittni Acosta RN) furosemide (LASIX) tablet 20 mg 20 mg, Oral, DAILY, First dose on Alejandrina 08/07/21 at 0900, Until Discontinued, Admission/Obs/Extended Recovery 1609 (Given - Provider: Anne-Marie Palacios RN) 08 (Given - Provider: Brittni Acosta, LU) guaiFENesin LA (MUCINEX) tablet 600 mg 600 mg, Oral, DAILY, First dose on Wed08/06/21 at 1700, Until Discontinued, Admission/Obs/Extended Recovery 1609 (Given - Provider: Anne-Marie Palacios RN) 08 (Given - Provider: Brittni Aocsta RN) isosorbide mononitrate ER (IMDUR) table t 30 mg 30 mg, Oral, DAILY, First dose on Wed08/06/21 at 1700, Until Discontinued, DO NOT Crush tablets (May be cut in half), Admission/Obs/Extended Recovery 1609 (Given - Provider: Anne-Marie Palacios RN) 08 (Given - Provider: Brittni Acosta RN) losartan (COZAAR) tablet 100 mg 100 mg, Oral, DAILY, First dose on Wed08/06/21 at 1700, Until Discontinued, Admission/Obs/Extended Recovery 1609 (Given - Provider: Anne-Marie Palacios, LU) 08 (Given - Provider: Brittni Acosta, LU) pantoprazole DR (PROTONIX) tablet 40 mg 40 mg, Oral, TWICE DAILY, First dose (after last modification) on Wed 1 at 1600, Until Discontinued, Do not crush or chew tablet., Admission/Obs/Extended Recovery 08 (Given - Provider: Brittni Acosta, LU) potassium chloride SR (K-DUR) tablet 10 mEq 10 mEq, Oral, DAILY WITH BREAKFAST, First dose on Wed08/07/21 at 0800, Unti l Discontinued, Give with meal or full glass of water, Admission/Obs/Extended Recovery 09 (Given - New Bag - Provider: Nikko Tovar RN) sodium chloride 0.9 % infusion (COMPLETED) 500 mL, 500 mL, Intravenous, at 999 mL/hr, BOLUS, 1 dose, On Wed08/06/21 at 0930 2016 (Given - Provider: Trent Greene, LU) 804 (Given - Provider: Brittni Acosta, LU) sucralfate (CARAFATE) tablet 1 g 1 g, [...] Wed08/06/21 at 0828, Until Wed08/07/21 at 1208, Pain non-opioid: may be used [...] 25 mg docusate (COLACE) capsule 100 mg 08/06 nitroglycerin (NITROSTAT) tablet 0.4 mg 1 08/06/2021 ondansetron (ZOFRAN) injection [address] (PROTONIX) tablet 40 mg 08/06/2021 sodium chloride 0.9 % infusion 1 [...]
[2021-08-15 11:47] LABS: MEAN CORPUSCULAR HEMOGLOBIN 24 pg (25-34); WHITE BLOOD COUNT 6.7 10^3/uL (4.3-11.0)
[2021-08-15 11:48] LABS: BASOPHILS % (AUTO) 1 % (0-10); EOSINOPHILS % (AUTO) 2 % (0-10); HEMATOCRIT 27 % (35-52); LYMPHOCYTES # (AUTO) 0.8 X 10^3 (1.0-4.0); LYMPHOCYTES % (AUTO) 12 % (12-44); MEAN CORPUSCULAR HGB CONC 29 g/dL (32-36); MEAN CORPUSCULAR VOLUME 83 fL (80-99); MEAN PLATELET VOLUME 10.9 fL (9.0-12.2); MONOCYTES % (AUTO) 10 % (0-12); NEUTROPHILS % (AUTO) 75 % (42-75); PLATELET COUNT 285 10^3/uL (130-400)
[2021-08-15 11:49] LABS: BASOPHILS # (AUTO) 0.1 10^3/uL (0.0-0.1); EOSINOPHILS # (AUTO) 0.2 10^3/uL (0.0-0.3); MONOCYTES # (AUTO) 0.6 X 10^3 (0.0-1.0)
[2021-08-15 12:18] LABS: ALANINE AMINOTRANSFERASE 22 U/L (0-55); ALKALINE PHOSPHATASE 91 U/L (40-136); BILIRUBIN,TOTAL 0.6 MG/DL (0.1-1.0); BUN/CREATININE RATIO 16; CALCIUM 9.1 MG/DL (8.5-10.1); CARBON DIOXIDE 19 MMOL/L (21-32); CHLORIDE 103 MMOL/L (98-107); GFR ESTIMATED 63; GLUCOSE 92 MG/DL (70-105); POTASSIUM 4.1 MMOL/L (3.6-5.0); SODIUM 137 MMOL/L (135-145); TOTAL PROTEIN 6.4 GM/DL (6.4-8.2)
[2021-08-15 12:19] LABS: ALBUMIN 3.7 GM/DL (3.2-4.5)
--- NOTE | 2021-08-15 12:19 | Diagnostic Imaging Report ---
INDICATION: Weakness. EXAMINATION: Chest, 08/15/2021. COMPARISON: 07/23/2021. FINDINGS: There is cardiomegaly. Pulmonary vasculature is unremarkable. Lungs are hyperinflated with chronic findings seen bilaterally. No infiltrates or effusions. No pneumothorax. No acute osseous abnormality. IMPRESSION: 1. Chronic findings with no acute cardiopulmonary process. Dictated by: Dictated on workstation # [id number]
[2021-08-15] MEDS ORDERED: FUROSEMIDE 40 MG/4 ML INJ (LASIX) IVP ONE (13:00)
[2021-08-15 14:05] LABS: CLARITY,URINE CLEAR; COLOR,URINE YELLOW; GLUCOSE, URINE (UA) NEGATIVE (NEGATIVE); PH,URINE 5.5 (5-9); PROTEIN,URINE NEGATIVE (NEGATIVE)
[2021-08-15 14:06] LABS: BACTERIA,URINE NEGATIVE /HPF; BILIRUBIN,URINE NEGATIVE (NEGATIVE); KETONES,URINE TRACE (NEGATIVE); LEUKOCYTE ESTERASE ,URINE NEGATIVE (NEGATIVE); NITRITE,URINE NEGATIVE (NEGATIVE); SQUAMOUS EPITHELIAL CELL,UR 0-2 /HPF; WBC,URINE RARE /HPF
[2021-08-15] MEDS ORDERED: ACETAMINOPHEN 500 MG TAB (TYLENOL) PO PRN (19:00)
[2021-08-15 20:46] VITALS: BP 125/55
[2021-08-15] MEDS ORDERED: morphine INJ 10 MG/ML 1ML (SYR OR VIAL) IVP PRN (21:00)
[2021-08-15] MEDS ORDERED: MELATONIN 3 MG TABLET PO PRN (21:00)
[2021-08-15] MEDS ORDERED: guaiFENesin/CODEINE (ROBITUSSIN AC) 10ML UDC PO PRN (21:00)
[2021-08-15] MEDS ORDERED: ALPRAZolam 0.25 MG (XANAX) TAB PO PRN (21:00)
[2021-08-15] MEDS ORDERED: DOCUSATE SODIUM 100 MG (COLACE) CAP PO PRN (21:00)
[2021-08-15] MEDS ORDERED: CALCIUM CARBONATE 500 MG (TUMS) TAB.CHEW PO PRN (21:00)
[2021-08-15] MEDS ORDERED: diphenhydrAMINE 25 MG TAB (BENADRYL) PO PRN (21:00)
[2021-08-15] MEDS ORDERED: ONDANSETRON 4 MG (ZOFRAN) ORAL DISSOLVE TAB PO PRN (21:00)
[2021-08-15] MEDS: polyethylene glycoL POWDER 17 GM (MIRALAX) PACK PO SCH (21:35)
[2021-08-15] MEDS: SENNA W/DOCUSATE (SENOKOT S) TABLET PO SCH (21:35)
[2021-08-15] MEDS: ENOXAPARIN 40 MG/0.4 ML (LOVENOX) SYR SC SCH (21:47)
[2021-08-15 23:51] VITALS: BP 135/80
[2021-08-16] MEDS ORDERED: FUROSEMIDE 40 MG/4 ML INJ (LASIX) IVP SCH (01:00)
[2021-08-16 03:35] VITALS: BP 163/67
[2021-08-16 05:56] LABS: BASOPHILS # (AUTO) 0.1 10^3/uL (0.0-0.1); BASOPHILS % (AUTO) 1 % (0-10); EOSINOPHILS # (AUTO) 0.2 10^3/uL (0.0-0.3); EOSINOPHILS % (AUTO) 3 % (0-10); HEMATOCRIT 30 % (35-52); HEMOGLOBIN 8.7 g/dL (11.5-16.0); LYMPHOCYTES # (AUTO) 1.2 10^3/uL (1.0-4.0); LYMPHOCYTES % (AUTO) 20 % (12-44); MEAN CORPUSCULAR HEMOGLOBIN 25 pg (25-34); MEAN CORPUSCULAR HGB CONC 29 g/dL (32-36); MEAN CORPUSCULAR VOLUME 85 fL (80-99); MEAN PLATELET VOLUME 11.1 fL (9.0-12.2); MONOCYTES # (AUTO) 0.7 10^3/uL (0.0-1.0); MONOCYTES % (AUTO) 12 % (0-12); NEUTROPHILS # (AUTO) 3.9 10^3/uL (1.8-7.8); NEUTROPHILS % (AUTO) 63 % (42-75); PLATELET COUNT 289 10^3/uL (130-400); WHITE BLOOD COUNT 6.1 10^3/uL (4.3-11.0)
[2021-08-16] MEDS: FUROSEMIDE 40 MG/4 ML INJ (LASIX) IVP SCH ×2 (06:12→16:34)
[2021-08-16 06:20] LABS: CALCIUM 9.4 MG/DL (8.5-10.1)
[2021-08-16 06:32] LABS: ALBUMIN 3.7 GM/DL (3.2-4.5)
[2021-08-16 06:33] LABS: POTASSIUM 4.3 MMOL/L (3.6-5.0)
[2021-08-16 06:35] LABS: TOTAL PROTEIN 6.5 GM/DL (6.4-8.2)
[2021-08-16 06:37] LABS: BILIRUBIN,TOTAL 0.6 MG/DL (0.1-1.0)
[2021-08-16 07:13] VITALS: BP 156/68
--- NOTE | 2021-08-16 07:49 | History & Physical-Hospitalist ---
History of Present Illness HPI/Chief Complaint Chief complaint: Acute exacerbation of congestive heart failure with anemia History present illness: This is a 66-year-old white female who has a past medical history of heart failure and microscopic colitis with chronic GI bleed and anemia who presents to the ER with shortness of breath. Patient was found to have evidence of heart failure and in need of monitoring. She is very frail with a BMI of 19.7. Currently she is doing much better but short of breath when she is active. Her bowels did move today and no report of blood. Dr. Holcomb's been consulted. Source: patient Exam Limitations: no limitations Date Seen 08/16/21 Time Seen by a Provider: 11:00 Attending Physician Stephanie Dave Amanda S Aprn Referring Physician Date of Admission Aug 15, 2021 at 17:30 Home Medications & Allergies Home Medications Reviewed patient Home Medication Reconciliation performed by pharmacy medication reconciliations gallery or museum technician and/or nursing. Patients Allergies have been reviewed. Allergies Allergies Coded Allergies No Known Drug Allergies (Verified05/13/21) Past Htfkqmt-Hlvmmx-Hhfzar Hx Patient Social History Marrital Status: single Employed/Student: unemployed Tobacco Use?: No Tobacco type used: Cigarettes Smoking Status: Former Smoker Substance use?: No Alcohol Use?: No Pt feels they are or have been: No Immunizations Up To Date Date of Influenza Vaccine: Jul 23, 2020 First/Initial COVID19 Vaccinat: 2020 Second COVID19 Vaccination Rom: January 2021 Tetanus Booster (TDap): Unknown Date of Pneumonia Vaccine: Sep 22, 2018 Seasonal Allergies Seasonal Allergies: No Current Status status: No status: No Advance Directives: Yes Advance Directive Location: Home Communicates: Verbally Primary Language: Martiniquais Preferred Spoken Language: Martiniquais Is interpretation needed?: No Sensory deficits: Vision impairment Implanted or Applied Medical D: Stents Past Medical History Surgeries: Gallbladder COPD, Emphysema Currently Using CPAP: No Coronary Artery Disease, Heart Murmur, High Cholesterol, Hypertension Headaches /Migraines 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: Menopausal Kidney Infection Colitis, Gastroesophageal Reflux, Gastrointestinal Bleed Arthritis, Chronic Back Pain Blood Disorders: Yes (ANEMIA --CURRENT PROBLEM STARTING 12/08/18) Family Medical History Heart Disease, Diabetes Review of Systems Constitutional: see HPI, malaise, weakness EENTM: no symptoms reported Respiratory: dyspnea on exertion Cardiovascular: no symptoms reported Gastrointestinal: no symptoms reported Musculoskeletal: no symptoms reported Skin: no symptoms reported Psychiatric/Neurological: No Symptoms Reported All Other Systems Reviewed Negative Unless Noted: Yes Physical Exam Physical Exam Vital Signs Vital Signs - First Documented 08/15/21 08/15/21 11:38 16:40 Temp 37.0 Pulse 51 Resp 20 B/P (MAP) 121/52 (75) Pulse Ox 100 O2 Delivery Room Air O2 Flow Rate 3.00 Capillary Refill : Less Than 3 Seconds Height, Weight, BMI Height: 5'6.00" Weight: 150lbs. 4.8oz. [id number]; 19.73 BMI Method:Stated General Appearance: No Apparent Distress, Chronically ill, Thin Eyes: Right Eye Normal Inspection, Right Eye PERRL HEENT: PERRL/EOMI, Normal ENT Inspection, Pharynx Normal, Moist Mucous Membranes Neck: Full Range of Motion, Normal Inspection, Non Tender Respiratory: Chest Non Tender, Lungs Clear, Normal Breath Sounds, No Accessory Muscle Use, No Respiratory Distress Cardiovascular: Regular Rate, Rhythm, No Edema, No Gallop, No JVD, No Murmur, Normal Peripheral Pulses Gastrointestinal: Normal Bowel Sounds, No Organomegaly, No Pulsatile Mass, Non Tender, Soft Back: Normal Inspection, No CVA Tenderness, No Vertebral Tenderness Extremity: Normal Capillary Refill, Normal Inspection, Normal Range of Motion, Non Tender, No Calf Tenderness, No Pedal Edema Neurologic/Psychiatric: Alert, Oriented x3, No Motor/Sensory Deficits, Normal Mood/Affect Skin: Normal Color, Warm/Dry Lymphatic: No Adenopathy Results Results/Procedures Labs Laboratory Tests 08/15/21 11:43 08/16/21 05:45 Patient resulted labs reviewed. Assessment/Plan Admission Diagnosis Assessment: Acute exacerbation of congestive heart failure Anemia Microscopic colitis with history of GI bleeds Frail status Plan: Dr. Holcomb consult Monitor hemoglobin Diuresis Admission Status: Inpatient Order (span 2 midnights) Reason for Inpatient Admission: Acute exacerbation of congestive heart failure with anemia and history of GI bleeds STEPHANIE DAVE DO Aug 16, 2021 07:49
[2021-08-16] MEDS: polyethylene glycoL POWDER 17 GM (MIRALAX) PACK PO SCH ×2 (08:30→20:14)
[2021-08-16] MEDS: SENNA W/DOCUSATE (SENOKOT S) TABLET PO SCH ×2 (08:31→20:15)
[2021-08-16] MEDS: HYDROcodone/APAP 5 MG/325 MG (LORTAB) TAB PO PRN ×2 (09:13→21:12)
[2021-08-16] MEDS: LOPERAMIDE 2 MG (IMODIUM) TABLET PO PRN (09:13)
[2021-08-16 11:32] VITALS: BP 144/65
[2021-08-16] MEDS ORDERED: NITROGLYCERIN 0.4 MG SL TABS BTL 25'S SL PRN (12:15)
[2021-08-16] MEDS ORDERED: FLUTICASONE NASAL SPRAY (FLONASE) 16 GM BTL NS PRN (12:30)
[2021-08-16] MEDS: SUCRALFATE 1 GM (CARAFATE) TAB PO SCH ×2 (13:41→16:33)
[2021-08-16 14:09] VITALS: BP 144/65
--- NOTE | 2021-08-16 15:39 | Consultation-Cardiology ---
HPI-Cardiology Cardiology Consultation: Date of Consultation 08/16/2021 Date of Admission 08/15/2021 Attending Physician Stephanie Dave DO Admitting Physician Dominic Campbell Aprn Consulting Physician ELVIA OWENS JR, MD HPI: Time Seen by a Provider: 15:35 Chief Complaint: Risk for consultation: Heart failure. At the pleasure of seeing Mikki on the medical floor at [facility] in [place], [place] this afternoon. She normally follows with one of my partners. She has a history of coronary artery disease with previous stents, cardiomyopathy with chronic systolic and diastolic heart failure, severe peripheral vascular disease, hypertension, hyperlipidemia, chronic anemia, and chronic obstructive pulmonary disease among other things. Yesterday her home health aide stop by and told the patient she was concerned about her increasing fatigue. The patient did not really seem to notice this. She has chronic dyspnea which she felt was unchanged. However, at the urging of her home health aide, she went to [facility] emergency room. She was found to have slightly worsening anemia and also with an elevated BNP level. Therefore, she was sent to our hospital for further evaluation. She tells me that her shortness of breath has been about the same for months. She has had some dark stool off and on for about the past month. She was just at [facility] 10 days ago and had 2 coronary stents placed. Because of the possibly worsening heart failure, a cardiology consultation was requested. She denies any chest discomfort. She denies paroxysmal nocturnal dyspnea or orthopnea. She gets occasional lightheaded spells if she stands up too quickly but denies syncope. From time to time she has palpitations with a fluttering sensation in her chest but then denies associated symptoms. She denies lower extremity edema. She has chronic fatigue in her legs which she relates is due to the severe peripheral arterial disease. She quit smoking in 2016. Certain portions of this document may have been dictated utilizing voice recognition technology. Inherent to this technology, typographical and grammatical errors may exist. As much as I am diligent to identify and correct these mistakes, some errors may remain in the document. Review of Systems-Cardiology Review of Systems Other comments Review of 10 organ systems is as per the history of present illness, otherwise negative. All Other Systems Reviewed Negative Unless Noted: Yes FDZ-Ysrdrw-Xxrlgj Hx Patient Social History Smoking Status: Former Smoker 2nd Hand Smoke Exposure: No Have you traveled recently?: No Alcohol Use?: No Pt feels they are or have been: No Tobacco type used: Cigarettes Immunizations Up To Date Tetanus Booster (TDap): Unknown Date of Pneumonia Vaccine: Sep 22, 2018 Date of Influenza Vaccine: Jul 23, 2020 Past Medical History PMH As described under Assessment. Family Medical History Family Medical History: She does not know of any family history of premature coronary artery disease Allergies and Home Medications Allergies Coded Allergies: No Known Drug Allergies (Verified , 05/13/21) Patient Home Medication List Home Medication List Reviewed: Yes Acetaminophen (Tylenol Extra Strength) 500 Mg Tablet, 1,000 MG PO Q8H PRN for PAIN-MILD (1-4), (Reported) Entered as Reported by: OSBALDO CATHERINE on 06/02/21 0903 Last Action: Held Atorvastatin Calcium (Atorvastatin Calcium) 80 Mg Tablet, 80 MG PO DAILY, (Reported) Entered as Reported by: DOMINIC CAMEJO on 12/09/18 08 Last Action: Continued Budesonide (Budesonide ER) 9 Mg Tabdr...er, 9 MG PO DAILY, (Reported) Entered as Reported by: OSBALDO CATHERINE on 07/23/21 1220 Last Action: Converted Carvedilol (Carvedilol) 6.25 Mg Tablet, 6.25 MG PO BID, (Reported) Entered as Reported by: NADEEM BASHIR on 05/07/21 1053 Last Action: Continued Clopidogrel Bisulfate (Clopidogrel) 75 Mg Tablet, 75 MG PO DAILY, (Reported) Entered as Reported by: OSBALDO CATHERINE on 06/02/21 09 Last Action: Held Fluticasone Propionate (Flonase Allergy Relief) 9.9 Ml [place].susp, 1 SPRAY NS DAILY PRN for CONGESTION, (Reported) Entered as Reported by: OSBALDO CATHERINE on 07/23/21 1220 Last Action: Converted Furosemide (Furosemide) 20 Mg Tablet, 20 MG PO DAILY, (Reported) Entered as Reported by: OSBALDO CATHERINE on 06/02/21 09 Last Action: Held Isosorbide Mononitrate (Isosorbide Mononitrate ER) 30 Mg Tab.er.24h, 30 MG PO DAILY, (Reported) Entered as Reported by: DOMINIC CAMEJO on 12/09/18 0842 Last Action: Continued Losartan Potassium (Losartan Potassium) 100 Mg Tablet, 100 MG PO DAILY, (Reported) Entered as Reported by: DOMINIC CAMEJO on 12/09/18841 Last Action: Continued Multivitamin/Iron/Folic Acid (Centrum Adults Tablet) 1 Each Tablet, 1 EACH PO DAILY, (Reported) Entered as Reported by: NADEEM BASHIR on 05/07/21 1053 Last Action: Continued Nitroglycerin (Nitroglycerin) 0.4 Mg Tab.subl, 0.4 MG SL UD PRN for CHEST PAIN (ANGINA), (Reported) Entered as Reported by: NADEEM BASHIR on 05/07/21 105 Last Action: Continued Pantoprazole Sodium (Protonix) 40 Mg Tablet.dr, 40 MG PO DAILY, (Reported) Entered as Reported by: OSBALDO CATHERINE on 06/02/21899 Last Action: Continued Potassium Chloride (Potassium Chloride) 10 Meq Tab.er.prt, 10 MEQ PO DAILY, (Reported) Entered as Reported by: OSBALDO CATHERINE on 06/02/21899 Last Action: Converted Sucralfate (Sucralfate) 1 Gm Tablet, 1 GM PO WM, (Reported) Entered as Reported by: OSBALDO CATHERINE on 06/02/21899 Last Action: Continued Exam Vital Signs Vital Signs Date Time Temp Pulse Resp B/P (MAP) Pulse Ox O2 Delivery O2 Flow Rate FiO2 08/16/21 14:09 35.6 54 18 144/65 100 Room Air 08/16/21 11:32 2.00 Physical Exam General: Alert. No acute distress. She appears chronically ill and older than her stated age. Eye: Extraocular movements are intact. Conjunctivae are clear. There are no xanthelasma. HENT: Normocephalic. Atraumatic. Carotid pulsations 2/2 without bruits. Neck: Jugular venous pressure does not appear elevated. No thyromegaly appreciated. Respiratory: Lungs are clear to auscultation. Respirations are non-labored. Breath sounds are equal. Symmetrical chest wall expansion. Cardiovascular: Normal rate. Regular rhythm. 2/6 systolic ejection murmur. No gallop. Point of maximal impulse is not appear displaced. Diminished but palpable pulses in lower extremities. No edema. Gastrointestinal: Soft. Normal bowel sounds. Skin: Skin turgor is normal. There is no pallor. Musculoskeletal: No kyphosis or scoliosis appreciated. Neurologic: Alert and oriented to person, place, time. Cranial nerves 3-12 appear grossly intact. The patient has good motor tone strength in the upper and lower extremities bilaterally. Psychiatric: Cooperative. Appropriate mood & affect. Labs Laboratory Tests Test 08/16/21 05:45 Range/Units White Blood Count 6.1 4.3-11.0 10^3/uL Red Blood Count 3.54 L 3.80-5.11 10^6/uL Hemoglobin 8.7 L 11.5-16.0 g/dL Hematocrit 30 L 35-52 % Mean Corpuscular Volume 85 80-99 fL Mean Corpuscular Hemoglobin 25 25-34 pg Mean Corpuscular Hemoglobin Concent 29 L 32-36 g/dL Red Cell Distribution Width 17.2 H 10.0-14.5 % Platelet Count 289 130-400 10^3/uL Mean Platelet Volume 11.1 9.0-12.2 fL Immature Granulocyte % (Auto) 1 % Neutrophils (%) (Auto) 63 42-75 % Lymphocytes (%) (Auto) 20 12-44 % Monocytes (%) (Auto) 12 0-12 % Eosinophils (%) (Auto) 3 0-10 % Basophils (%) (Auto) 1 0-10 % Neutrophils # (Auto) 3.9 1.8-7.8 10^3/uL Lymphocytes # (Auto) 1.2 1.0-4.0 10^3/uL Monocytes # (Auto) 0.7 0.0-1.0 10^3/uL Eosinophils # (Auto) 0.2 0.0-0.3 10^3/uL Basophils # (Auto) 0.1 0.0-0.1 10^3/uL Immature Granulocyte # (Auto) 0.0 0.0-0.1 10^3/uL Sodium Level 139 135-145 MMOL/L Potassium Level 4.3 3.6-5.0 MMOL/L Chloride Level 105 98-107 MMOL/L Carbon Dioxide Level 17 L 21-32 MMOL/L Anion Gap 17 H 5-14 MMOL/L Blood Urea Nitrogen 18 7-18 MG/DL Creatinine 1.00 0.60-1.30 MG/DL Estimat Glomerular Filtration Rate 55 BUN/Creatinine Ratio 18 Glucose Level 69 L 70-105 MG/DL Calcium Level 9.4 8.5-10.1 MG/DL Corrected Calcium 9.6 8.5-10.1 MG/DL Total Bilirubin 0.6 0.1-1.0 MG/DL Aspartate Amino Transf (AST/SGOT) 37 H 5-34 U/L Alanine Aminotransferase (ALT/SGPT) 25 0-55 U/L Alkaline Phosphatase 80 40-136 U/L Total Protein 6.5 6.4-8.2 GM/DL Albumin 3.7 3.2-4.5 GM/DL ECG Impression ECG Comment Sinus bradycardia at 49 bpm with left ventricular hypertrophy with repolarization abnormality. Diagnosis/Problems Diagnosis/Problems (1) Acute on chronic combined systolic and diastolic congestive heart failure Status: Acute Assessment & Plan: She feels as though her breathing is unchanged. Her chest x-ray from [facility] reported chronic findings but did not show overt pulmonary edema or pulmonary congestion. Her BNP was elevated but she most likely has at least some degree of chronic elevation of the BNP. I suspect her fatigue may be related to the chronic anemia. It would not be unreasonable to keep her in the hospital for 1 additional night. I will obtain a follow-up chest x-ray in the morning. Given the recurrent hospitalizations for heart failure, she might benefit from Entresto. I would discontinue her losartan and start her on Entresto. Although the company recommends a 2-day washout for ARB use before changing to Entresto, she has adequate blood pressure to support this change after 1 day. (2) Cardiomyopathy Status: Chronic Assessment & Plan: She has moderate left ventricular systolic dysfunction. This is likely contributing to her chronic shortness of breath. She also has some degree of diastolic dysfunction. We will continue the carvedilol. I will change losartan to Entresto. Given that her ejection fraction seems to stay above 35%, I am inclined not to add an aldosterone antagonist. (3) Coronary artery disease without angina pectoris Assessment & Plan: She had recent stents to the left circumflex system at an outside facility. She will need to continue dual antiplatelet therapy for a minimum of 1 month. She has not been written for the aspirin or clopidogrel during this admission. I will take the liberty of resuming these. I will give her 1 dose of clopidogrel today and resume aspirin tomorrow. We will just need to watch her hemoglobin level closely in light of her chronic anemia when we resume these medications. After 30 days of dual antiplatelet therapy, she may be able to stop aspirin and just continue clopidogrel. She should continue on beta-derrick and statin medication. (4) Pulmonary hypertension Status: Chronic Assessment & Plan: Most likely related to the chronic heart failure, mitral regurgitation and underlying chronic obstructive pulmonary disease. She should continue with home oxygen. (5) Peripheral arterial disease Assessment & Plan: Continue with statin medication. We are in the process of trying to establish a peripheral vascular rehabilitation program with in our cardiac rehabilitation program. She would likely benefit from this program once we get it up and running. (6) Mitral regurgitation Status: Chronic Assessment & Plan: Her most recent echocardiogram showed severe mitral regurg itation. This is likely contributing to the heart failure. I am not sure if she had a discussion with the physician at [facility] about whether or not she might benefit from a MitraClip procedure. I will check with her regular real estate consultant on Wednesday. (7) Primary hypertension Assessment & Plan: Continue outpatient antihypertensive medication. (8) Mixed hyperlipidemia Status: Chronic Assessment & Plan: Continue statin medication. ELVIA OWENS JR, MD Aug 16, 2021 15:39
[2021-08-16 15:50] VITALS: BP 131/58
[2021-08-16] MEDS ORDERED: CLOPIDOGREL 75 MG (PLAVIX) TABLET PO ONE (16:00)
[2021-08-16 19:44] VITALS: BP 109/50
[2021-08-16] MEDS: ENOXAPARIN 40 MG/0.4 ML (LOVENOX) SYR SC SCH (21:11)
[2021-08-17] VITALS: BP 149/71
[2021-08-17 04:38] VITALS: BP 150/74
[2021-08-17 06:28] LABS: BASOPHILS # (AUTO) 0.1 10^3/uL (0.0-0.1); BASOPHILS % (AUTO) 1 % (0-10); EOSINOPHILS # (AUTO) 0.3 10^3/uL (0.0-0.3); EOSINOPHILS % (AUTO) 4 % (0-10); HEMATOCRIT 31 % (35-52); HEMOGLOBIN 8.9 g/dL (11.5-16.0); LYMPHOCYTES # (AUTO) 1.8 10^3/uL (1.0-4.0); LYMPHOCYTES % (AUTO) 29 % (12-44); MEAN CORPUSCULAR HEMOGLOBIN 24 pg (25-34); MEAN CORPUSCULAR HGB CONC 29 g/dL (32-36); MEAN CORPUSCULAR VOLUME 82 fL (80-99); MEAN PLATELET VOLUME 11.2 fL (9.0-12.2); MONOCYTES # (AUTO) 0.8 10^3/uL (0.0-1.0); MONOCYTES % (AUTO) 13 % (0-12); NEUTROPHILS # (AUTO) 3.3 10^3/uL (1.8-7.8); NEUTROPHILS % (AUTO) 53 % (42-75); PLATELET COUNT 314 10^3/uL (130-400); WHITE BLOOD COUNT 6.2 10^3/uL (4.3-11.0)
[2021-08-17] MEDS: FUROSEMIDE 40 MG/4 ML INJ (LASIX) IVP SCH ×2 (06:30→16:18)
--- NOTE | 2021-08-17 06:38 | Progress Note - Hospitalist ---
Subjective HPI/CC On Admission Date Seen by Provider: Aug 17, 2021 Time Seen by Provider: 11:30 Chief complaint: Acute exacerbation of congestive heart failure with anemia History present illness: This is a 66-year-old white female who has a past medical history of heart failure and microscopic colitis with chronic GI bleed and anemia who presents to the ER with shortness of breath. Patient was found to have evidence of heart failure and in need of monitoring. She is very frail with a BMI of 19.7. Currently she is doing much better but short of breath when she is active. Her bowels did move today and no report of blood. Dr. Holcomb's been consulted. Subjective/Events-last exam Patient doing really well PT and OT ordered Patient appears to be very weak Check meds and labs Objective Exam Vital Signs Vital Signs Date Time Temp Pulse Resp B/P (MAP) Pulse Ox O2 Delivery O2 Flow Rate FiO2 08/17/21 19:36 36.2 63 18 103/57 (72) 99 Nasal Cannula 2.00 Capillary Refill : Less Than 3 Seconds General Appearance: No Apparent Distress, WD/WN, Chronically ill Respiratory: Lungs Clear, Normal Breath Sounds Cardiovascular: Regular Rate, Rhythm Neurologic/Psychiatric: Alert, Oriented x3 Results/Procedures Lab Laboratory Tests 08/17/21 05:55 Patient resulted labs reviewed. Assessment/Plan Assessment and Plan Assess & Plan/Chief Complaint Assessment: Acute exacerbation of congestive heart failure Anemia Microscopic colitis with history of GI bleeds Frail status Plan: Dr. Holcomb consult Monitor hemoglobin Diuresis 08/17/2021: Supportive care Diuresis Monitor hemoglobin GLENORY MAXWELL DO Aug 17, 2021 06:38
[2021-08-17 06:40] LABS: ALBUMIN 3.7 GM/DL (3.2-4.5)
[2021-08-17 06:41] LABS: POTASSIUM 3.4 MMOL/L (3.6-5.0)
[2021-08-17 06:42] LABS: CALCIUM 9.4 MG/DL (8.5-10.1)
[2021-08-17 06:43] LABS: TOTAL PROTEIN 6.7 GM/DL (6.4-8.2)
[2021-08-17 06:45] LABS: BILIRUBIN,TOTAL 0.5 MG/DL (0.1-1.0)
[2021-08-17 06:47] LABS: CREATININE SERUM 1.01 MG/DL (0.60-1.30)
[2021-08-17 07:34] VITALS: BP 113/65
--- NOTE | 2021-08-17 08:46 | Diagnostic Imaging Report ---
HISTORY: Heart failure TECHNIQUE: 2 views of the chest COMPARISON: 08/15/2021 FINDINGS: Lung volumes are large and the cardiac silhouette is large. There is no pleural effusion or pneumothorax. No new consolidation is seen. There is scarring in the lung apices. There is extensive calcific atherosclerosis. There is diffuse osteopenia. IMPRESSION: 1. Stable chronic findings in the chest with no acute pulmonary abnormality seen. Dictated by: Dictated on workstation # [id number]
[2021-08-17] MEDS ORDERED: LOSARTAN 100 MG (COZAAR) TABLET PO SCH (09:00)
[2021-08-17] MEDS: ASPIRIN E.C. 81 MG (ECOTRIN) TAB PO SCH (09:20)
[2021-08-17] MEDS: KCL 10 MEQ TAB (MICRO K) PO SCH (09:20)
[2021-08-17] MEDS: SACUBITRIL/VALSARTAN 24/26 MG (ENTRESTO) TABLET PO SCH ×2 (09:20→21:43)
[2021-08-17] MEDS: MULTIVIT W/MINERALS TAB (THERAGRAN M) PO SCH (09:20)
[2021-08-17] MEDS: PANTOPRAZOLE 40 MG (PROTONIX) TAB PO SCH (09:20)
[2021-08-17] MEDS: CLOPIDOGREL 75 MG (PLAVIX) TABLET PO SCH (09:20)
[2021-08-17] MEDS: SUCRALFATE 1 GM (CARAFATE) TAB PO SCH ×3 (09:20→16:17)
[2021-08-17] MEDS: polyethylene glycoL POWDER 17 GM (MIRALAX) PACK PO SCH ×2 (09:21→21:43)
[2021-08-17] MEDS: ISOSORBIDE MONONITRATE 30 MG (IMDUR) TAB PO SCH (09:21)
[2021-08-17] MEDS: SENNA W/DOCUSATE (SENOKOT S) TABLET PO SCH ×2 (09:21→21:44)
[2021-08-17 11:24] VITALS: BP 102/61
[2021-08-17] MEDS ORDERED: KCL 20 MEQ TAB (K-DUR) PO ONE (12:30)
--- NOTE | 2021-08-17 15:24 | Cardiology Progress Note ---
Progress Note-Cardiology Events since last exam Date Seen by Provider: Aug 17, 2021 Time Seen by Provider: 15:19 Events since last exam We are following her due to heart failure among numerous other cardiac issues. Her breathing is better at rest. However, when she stands up she still gets fairly short of breath more than usual. She denies chest pain, palpitations, syncope, or ankle edema. Certain portions of this document may have been dictated utilizing voice recognition technology. Inherent to this technology, typographical and grammatical errors may exist. As much as I am diligent to identify and correct these mistakes, some errors may remain in the document. Vitals Last set of Vitals Signs Vital Signs 08/17/21 08/17/21 11:24 12:46 Temp 36.5 Pulse 83 Resp 18 B/P (MAP) 102/61 (75) Pulse Ox 98 O2 Delivery Nasal Cannula O2 Flow Rate 2.00 Labs Labs Laboratory Tests 08/17/21 05:55 Exam Vital Signs Vital Signs Date Time Temp Pulse Resp B/P (MAP) Pulse Ox O2 Delivery O2 Flow Rate FiO2 08/17/21 12:46 83 08/17/21 11:24 36.5 18 102/61 (75) 98 Nasal Cannula 2.00 Physical Exam General: Alert. No acute distress. She appears underweight and chronically ill. Eye: No xanthelasma. HENT: Normocephalic. Neck: Jugular venous pressure does not appear elevated. Respiratory: Lungs are clear to auscultation. Respirations are non-labored. Breath sounds are equal. Symmetrical chest wall expansion. Cardiovascular: Normal rate. Regular rhythm. 2/6 systolic ejection murmur. No gallop. No edema. Gastrointestinal: Soft. Normal bowel sounds. Skin: Warm. Dry. Neurologic: Alert and oriented to person, place, time. Cranial nerves 3-11 grossly intact. Psychiatric: Cooperative. Appropriate mood & affect. Labs Laboratory Tests Test 08/17/21 05:55 Range/Units White Blood Count 6.2 4.3-11.0 10^3/uL Red Blood Count 3.70 L 3.80-5.11 10^6/uL Hemoglobin 8.9 L 11.5-16.0 g/dL Hematocrit 31 L 35-52 % Mean Corpuscular Volume 82 80-99 fL Mean Corpuscular Hemoglobin 24 L 25-34 pg Mean Corpuscular Hemoglobin Concent 29 L 32-36 g/dL Red Cell Distribution Width 17.2 H 10.0-14.5 % Platelet Count 314 130-400 10^3/uL Mean Platelet Volume 11.2 9.0-12.2 fL Immature Granulocyte % (Auto) 1 % Neutrophils (%) (Auto) 53 42-75 % Lymphocytes (%) (Auto) 29 12-44 % Monocytes (%) (Auto) 13 H 0-12 % Eosinophils (%) (Auto) 4 0-10 % Basophils (%) (Auto) 1 0-10 % Neutrophils # (Auto) 3.3 1.8-7.8 10^3/uL Lymphocytes # (Auto) 1.8 1.0-4.0 10^3/uL Monocytes # (Auto) 0.8 0.0-1.0 10^3/uL Eosinophils # (Auto) 0.3 0.0-0.3 10^3/uL Basophils # (Auto) 0.1 0.0-0.1 10^3/uL Immature Granulocyte # (Auto) 0.0 0.0-0.1 10^3/uL Sodium Level 137 135-145 MMOL/L Potassium Level 3.4 L 3.6-5.0 MMOL/L Chloride Level 99 98-107 MMOL/L Carbon Dioxide Level 20 L 21-32 MMOL/L Anion Gap 18 H 5-14 MMOL/L Blood Urea Nitrogen 22 H 7-18 MG/DL Creatinine 1.01 0.60-1.30 MG/DL Estimat Glomerular Filtration Rate 55 BUN/Creatinine Ratio 22 Glucose Level 72 70-105 MG/DL Calcium Level 9.4 8.5-10.1 MG/DL Corrected Calcium 9.6 8.5-10.1 MG/DL Total Bilirubin 0.5 0.1-1.0 MG/DL Aspartate Amino Transf (AST/SGOT) 41 H 5-34 U/L Alanine Aminotransferase (ALT/SGPT) 26 0-55 U/L Alkaline Phosphatase 85 40-136 U/L Total Protein 6.7 6.4-8.2 GM/DL Albumin 3.7 3.2-4.5 GM/DL Diagnosis/Problems Diagnosis/Problems (1) Acute on chronic combined systolic and diastolic congestive heart failure Status: Acute Assessment & Plan: She is gradually improving although she did not have significant complaints of dyspnea on admission. Her main complaint was more of fatigue. Her chest x-ray from this morning shows chronic changes without overt pulmonary edema. Her BNP was elevated at the outside ER but she most likely has at least some degree of chronic elevation of the BNP. I suspect her fatigue may be related to the chronic anemia with some component due to chronic heart failure. The hospitalist plans to keep her in the hospital for 1 additional night. On 08/16 I discontinued her losartan and she was started on the lowest strength of Entresto with the first dose on 08/17. She may need to sign up for patient assistance with the franchise specialist if this medication is cost prohibitive. (2) Cardiomyopathy Status: Chronic Assessment & Plan: She has moderate left ventricular systolic dysfunction. This is likely contributing to her chronic shortness of breath. She also has some degree of diastolic dysfunction. We will continue the carvedilol and Entresto. Given that her ejection fraction seems to stay above 35%, I am inclined not to add an aldosterone antagonist. (3) Coronary artery disease without angina pectoris Assessment & Plan: She had recent stents to the left circumflex system at an outside facility. She will need to continue dual antiplatelet therapy for a minimum of 1 month. I resumed her clopidogrel on 08/16 and resumed her aspirin this morning. We will need to watch her hemoglobin level closely in light of her chronic anemia. After 30 days of dual antiplatelet therapy, it may not be unreasonable to stop aspirin and continue monotherapy with clopidogrel in light of the chronic anemia. She should continue on beta-derrick and statin medication. (4) Mitral regurgitation Status: Chronic Assessment & Plan: Her most recent echocardiogram showed severe mitral regurgitation. This is likely contributing to the heart failure. I am not sure if she had a discussion with the physician at [facility] about whether or not she might benefit from a MitraClip procedure. This will need some follow-up. (5) Pulmonary hypertension Status: Chronic Assessment & Plan: Most likely related to the chronic heart failure, mitral regurgitation and underlying chronic obstructive pulmonary disease. She should continue with home oxygen. (6) Peripheral arterial disease Assessment & Plan: Continue with clopidogrel and statin medication. We are in the process of trying to establish a peripheral vascular rehabilitation program with in our cardiac rehabilitation program. She would likely benefit from this program once we get it up and running. (7) Primary hypertension Assessment & Plan: Continue outpatient antihypertensive medication. (8) Mixed hyperlipidemia Status: Chronic Assessment & Plan: Continue statin medication. ELVIA OWENS JR, MD Aug 17, 2021 15:24
[2021-08-17 15:49] VITALS: BP 99/63
[2021-08-17] MEDS: HYDROcodone/APAP 5 MG/325 MG (LORTAB) TAB PO PRN ×2 (17:08→21:43)
[2021-08-17 19:36] VITALS: BP 103/57
[2021-08-17] MEDS: ENOXAPARIN 40 MG/0.4 ML (LOVENOX) SYR SC SCH (21:43)
[2021-08-18] VITALS: BP 108/67
[2021-08-18 03:57] VITALS: BP 112/62
[2021-08-18 06:16] LABS: BASOPHILS # (AUTO) 0.1 10^3/uL (0.0-0.1); BASOPHILS % (AUTO) 1 % (0-10); EOSINOPHILS # (AUTO) 0.2 10^3/uL (0.0-0.3); EOSINOPHILS % (AUTO) 3 % (0-10); HEMATOCRIT 31 % (35-52); HEMOGLOBIN 8.8 g/dL (11.5-16.0); LYMPHOCYTES # (AUTO) 1.4 10^3/uL (1.0-4.0); LYMPHOCYTES % (AUTO) 26 % (12-44); MEAN CORPUSCULAR HEMOGLOBIN 24 pg (25-34); MEAN CORPUSCULAR HGB CONC 29 g/dL (32-36); MEAN CORPUSCULAR VOLUME 82 fL (80-99); MEAN PLATELET VOLUME 10.9 fL (9.0-12.2); MONOCYTES # (AUTO) 0.7 10^3/uL (0.0-1.0); MONOCYTES % (AUTO) 13 % (0-12); NEUTROPHILS # (AUTO) 3.1 10^3/uL (1.8-7.8); NEUTROPHILS % (AUTO) 57 % (42-75); PLATELET COUNT 338 10^3/uL (130-400); WHITE BLOOD COUNT 5.5 10^3/uL (4.3-11.0)
[2021-08-18 06:36] LABS: ALBUMIN 3.7 GM/DL (3.2-4.5); BILIRUBIN,TOTAL 0.4 MG/DL (0.1-1.0); CALCIUM 9.5 MG/DL (8.5-10.1); CREATININE SERUM 1.29 MG/DL (0.60-1.30); POTASSIUM 3.6 MMOL/L (3.6-5.0); TOTAL PROTEIN 6.6 GM/DL (6.4-8.2)
[2021-08-18] MEDS: FUROSEMIDE 40 MG/4 ML INJ (LASIX) IVP SCH (06:43)
[2021-08-18 08:00] VITALS: BP 99/59
[2021-08-18] MEDS: SUCRALFATE 1 GM (CARAFATE) TAB PO SCH ×3 (08:42→18:19)
[2021-08-18] MEDS: polyethylene glycoL POWDER 17 GM (MIRALAX) PACK PO SCH ×2 (08:42→19:35)
[2021-08-18] MEDS: ASPIRIN E.C. 81 MG (ECOTRIN) TAB PO SCH (08:42)
[2021-08-18] MEDS: PANTOPRAZOLE 40 MG (PROTONIX) TAB PO SCH (08:42)
[2021-08-18] MEDS: KCL 10 MEQ TAB (MICRO K) PO SCH (08:42)
[2021-08-18] MEDS: ISOSORBIDE MONONITRATE 30 MG (IMDUR) TAB PO SCH (08:42)
[2021-08-18] MEDS: MULTIVIT W/MINERALS TAB (THERAGRAN M) PO SCH (08:42)
[2021-08-18] MEDS: CLOPIDOGREL 75 MG (PLAVIX) TABLET PO SCH (08:42)
[2021-08-18] MEDS: SACUBITRIL/VALSARTAN 24/26 MG (ENTRESTO) TABLET PO SCH ×2 (08:42→19:44)
[2021-08-18] MEDS: SENNA W/DOCUSATE (SENOKOT S) TABLET PO SCH ×2 (08:43→19:35)
--- NOTE | 2021-08-18 08:45 | Cardiology Progress Note ---
Subjective Date Seen by Provider: Aug 18, 2021 Time Seen by Provider: 08:37 Subjective/Events-last exam Patient is sitting at bedside, continues to complain of generalized weakness. Denies any chest pain or increased dyspnea. Review of Systems General: No Chills, No Night Sweats; Fatigue, Malaise; No Appetite, No Other HEENT: No Head Aches, No Visual Changes, No Eye Pain, No Ear Pain, No Dysphasia, No Sinus Congestion, No Post Nasal Drip, No Sore Throat, No Other Pulmonary: No Dyspnea, No Cough, No Pleuritic Chest Pain, No Other Cardiovascular: No: Chest Pain, Palpitations, Orthopnea, Paroxysmal Noc. Dyspnea, Edema, Lt Headedness, Other Objective-Cardiology Exam Last Set of Vital Signs Vital Signs 08/18/21 08:00 Temp 36.3 Pulse 59 Resp 16 B/P (MAP) 99/59 (72) Pulse Ox 100 O2 Delivery Nasal Cannula O2 Flow Rate 1.00 I&O Intake and Output 08/18/21 00:00 Intake Total 880 ml Output Total 1280 ml Balance -400 ml Intake Oral 880 ml Output Urine Total 1280 ml # Voids 1 # Bowel Movements 1 General: Alert, Oriented X3, Cooperative, No Acute Distress HEENT: Atraumatic Neck: Supple, +2 Carotid Pulse No Bruit Lungs: Clear to Auscultation Heart: Regular Rate, Normal S1, Normal S2 Abdomen: Soft, No Tenderness Extremities: No Clubbing, No Edema Skin: No Rashes, No Significant Lesion Neuro: Normal Speech, Cranial Nerves 3-12 NL Psych/Mental Status: Mental Status NL, Mood NL Results Lab Laboratory Tests 08/18/21 05:40 A/P-Cardiology Admission Diagnosis Acute on chronic CHF CAD HTN Anemia Assessment/Plan Acute on chronic combined systolic and diastolic CHF, maintained on Entresto, Coreg, Lasix. Echocardiogram done on August 18, 2021 showing normal LV size, EF 35 to 40%, grade 2 diastolic dysfunction, dilated left atrium, moderate mitral regurgitation, I am changing Lasix to 20 mg oral daily and monitor tolerance and response Generalized weakness, starting physical therapy, managed by primary care team Coronary artery disease, history of coronary stenting done in 2016 at [facility]. Cardiac catheterization done on 05/07/2021 showing severe stenosis at the first obtuse marginal branch, moderate size artery, heavily calcified proximal LAD and tortuous LAD mild to moderate disease nonobstructive disease, calcified artery with mild to moderate disease, prominent left ventricle with diffuse left ventricular hypokinesia ejection fraction 40%, heavily calcified aortic arch and brachiocephalic artery with moderate stenosis. on 07/23/21 had Aborted attempt for cardiac catheterization due to failure to establish access using both femoral artery and right radial artery with human resource assistant of ultrasound, and was referred to where she underwent stenting to the left circumflex system. She will need to continue dual antiplatelet therapy for a minimum of 1 month. Clopidogrel resumed on 08/16 and resumed her aspirin yesterday. We will need to watch her hemoglobin level closely in light of her chronic anemia. After 30 days of dual antiplatelet therapy, it may not be unreasonable to stop aspirin and continue monotherapy with clopidogrel in light of the chronic anemia. She should continue on beta-derrick and statin medication. Anemia, continue to monitor H/H. Hypertension, controlled, continue to monitor. Hyperlipidemia, maintained on statin. Peripheral arterial disease, reporting advanced disease, managed by Dr. Lei at [facility], scheduled an appointment on July 31 for follow-up visit History of tobaccoism, stopped in 2015 History of heavy alcohol use stopped in 2011 History of hepatic cirrhosis Carotid stenosis, last ultrasound was done in June 2020 and she was referred to Dr. Loco at [facility], recommended conservative management, following with Dr. Lei at this point Supervisory-Addendum Brief Supervisory Addendum Participated in pt care: history, MDM, physical Personally performed: exam, history, MDM Care discussed with: KERVIN Results interpretation: Verified all documentation Notes: Patient was seen and evaluated with Soledad, examination performed, management plan was discussed, agree with the current scribed note, I made few changes to the note using Italic font Patient was seen at bedside, laying down comfortably, no significant edema was noted Changing Lasix to oral Discussed the management plan with Dr. Constantino, she will stay for another day for physical therapy Continue to monitor blood pressure Repeat echo showed moderate mitral regurgitation, would not require mitral clip at this time, her pulmonary artery pressure is 35 to 40 mm SOLEDAD BARRIGA Aug 18, 2021 08:45 SUSAN LIM MD Aug 18, 2021 11:10
--- NOTE | 2021-08-18 09:38 | Occupational Therapy Eval ---
OT Evaluation-General/PLF Medical Diagnosis Admission Date Aug 15, 2021 at 17:30 Medical Diagnosis: CHF exacerbation, weakness Onset Date: Aug 29, 2021 Therapy Diagnosis Therapy Diagnosis: weakness, decreased ADL status Height/Weight Height (Feet): 5 Height (Inches): 6.00 Weight (Pounds): 150 Weight (Ounces): 4.8 Precautions Precautions/Isolations: Standard Precautions Referral Physician: Tenzin Referral Reason: Evaluation/Treatment Medical History Pertinent Medical History: CAD, COPD, Heart Failure, HTN Additional Medical History COPD, emphysema, CAD, heart murmur, HTN, kidney infection, colitis, anemia Current History ED due to SOB, found to have evidence of heart failure in need of monitoring Social History Home: Single Level Current Living Status: Spouse Entry Into Home: Stairs With Railing Steps Into Home: 2 ADL-Prior Level of Function SCALE: Activities may be completed with or without assistive devices. 9-Vbaehycihl-wbjlrkb completes the activity by him/herself with no assistance from a helper. 5-Set-up or Clean-up Assistance-helper sets up or cleans up; patient completes activity. [place] assists only prior to or following the activity. 4-Supervision or Touching Assistance-helper provides verbal cues and/or touching/steadying and/or contact guard assistance as patient completes activity. Assistance may be provided throughout the activity or intermittently. 3-Partial/Moderate Assistance-helper does LESS THAN HALF the effort. [place] lifts, holds or supports trunk or limbs, but provides less than half the effort. 2-Substantial/Maximal Assistance-helper does MORE THAN HALF the effort. [place] lifts or holds trunk or limbs and provides more than half the effort. 0-Klnmrvsfo-jlepyh does ALL the effort. Patient does none of the effort to com plete the activity. Or, the assistance of 2 or more helpers is required for the patient to complete the activity. If activity was not attempted, code reason: 7-Patient Refused. 9-Not Applicable-not attempted and the patient did not perform the activity before the current illness, exacerbation or injury. 10-Not Attempted due to Environmental Limitations-(lack of equipment, weather restraints, etc.). 88-Not Attempted due to Medical Conditions or Safety Concerns. ADL PLOF Comments Pt reports IND with ADLs and functional mobility using cane. She indicates she has a home health aide and therapy who come once a week each. Self Care: Independent Functional Cognition: Independent DME/Equipment: Bath Chair, Shower OT Current Status Subjective Pt seated in recliner, agreeable to OT Tx. Reports pain in her legs when she is up walking on them and she has a slight headache, does not verbalize pain rating. Mental Status/Objective Patient Orientation: Person, Place, Time, Situation Attachments: Oxygen Current Upper Extremity ROM WFL, BUE shoulder flexion to approx 120 degrees Upper Extremity Coordination WFL Upper Extremity Strength grossly 3/5 ADL-Treatment Eating (QC): 5 (Per pt report) Oral Hygiene (QC): 9 Other Treatments Pt seated in recliner, provides information about PLOF and home set up. Pt indicates she is a lot weaker than she normally is. OT educated pt on purpose and benefit of UE exercises, she verbalizes understanding. 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 Pt took rest break between each exercise, SOB noted after overhead movements. Pt declined getting out of chair at this time, as she just returned to the recliner after PT tx, where she ambulated in the hallway. Pt's nurse present providing pt with meds, pt able to take meds independently. Post tx, pt in recliner, call light in reach and all needs met. Education OT Patient Education: Correct positioning, Energy conservation, Exercise program, Home exercise program, Modified ADL techniques, Progress toward Goal/Update tx plan, Purpose of tx/functional activities, Rehab process Teaching Recipient: Patient Teaching Methods: Discussion Response to Teaching: Verbalize Understanding OT Long-Term Goals Tetryl Screen Operator Goals Time Frame: Aug 29, 2021 Eating (QC): 6 Oral Hygiene (QC): 6 Toileting Hygiene (QC): 6 Shower/Bathe Self (QC): 4 Upper Body Dressing (QC): 5 Lower Body Dressing (QC): 4 On/Off Footwear (QC): 4 Additional Goals: 1-Demonstrate ADL Tasks, 2-Verbalize Understanding, 3-Improv eStrength/Kwame 1=Demonstrate adherence to instructed precautions during ADL tasks. 2=Patient will verbalize/demonstrate understanding of assistive devices/modifications for ADL. 3=Patient will improve strength/tolerance for activity to enable patient to p erform ADL's. OT Education/Plan Problem List/Assessment Assessment: Decreased Activ Tolerance, Decreased UE Strength, Impaired Funct Balance, Impaired I ADL's, Impaired Self-Care Skills Discharge Recommendations Plan/Recommendations: Continue POC Treatment Plan/Plan of Care Patient would benefit from OT for education, treatment and training to promote independence in ADL's, mobility, safety and/or upper extremity function for ADL's. Plan of Care: ADL Retraining, Functional Mobility, UE Funct Exercise/Act Treatment Duration: Aug 29, 2021 Frequency: 5 times per week Estimated Hrs Per Day: .25 hour per day Time/GCodes Start Time: 08:35 Stop Time: 08:50 Total Time Billed (hr/min): 15 Billed Treatment Time 1, AVERY CORNEJO OT Aug 18, 2021 09:38
[2021-08-18] MEDS: HYDROcodone/APAP 5 MG/325 MG (LORTAB) TAB PO PRN (09:39)
--- NOTE | 2021-08-18 10:01 | Physical Therapy Evaluation ---
PT Evaluation-General Medical Diagnosis Admission Date Aug 15, 2021 at 17:30 Medical Diagnosis: CHF exacerbation, weakness Onset Date: Aug 29, 2021 Therapy Diagnosis Therapy Diagnosis: generalized weakness/debility Height/Weight Height (Feet): 5 Height (Inches): 6.00 Weight (Pounds): 150 Weight (Ounces): 4.8 Precautions Precautions/Isolations: Standard Precautions Referral Physician: Tenzin Reason for Referral: Evaluation/Treatment Medical History Pertinent Medical History: CAD, COPD, Heart Failure, HTN Current History EMS secondary to SOA Reviewed History: Yes Social History Home: Single Level Current Living Status: Spouse Entry Into Home: Stairs With Railing PT Steps Into Home: 2 Prior Prior Level of Function SCALE: Activities may be completed with or without assistive devices. 3-Wldncrxima-rwbubhu completes the activity by him/herself with no assistance from a helper. 5-Set-up or Clean-up Assistance-helper sets up or cleans up; patient completes activity. [place] assists only prior to or following the activity. 4-Supervision or Touching Assistance-helper provides verbal cues and/or touching/steadying and/or contact guard assistance as patient completes activity. Assistance may be provided throughout the activity or intermittently. 3-Partial/Moderate Assistance-helper does LESS THAN HALF the effort. [place] lifts, holds or supports trunk or limbs, but provides less than half the effort. 2-Substantial/Maximal Assistance-helper does MORE THAN HALF the effort. [place] lifts or holds trunk or limbs and provides more than half the effort. 0-Sdsavaurj-llxpnx does ALL the effort. Patient does none of the effort to complete the activity. Or, the assistance of 2 or more helpers is required for the patient to complete the activity. If activity was not attempted, code reason: 7-Patient Refused. 9-Not Applicable-not attempted and the patient did not perform the activity before the current illness, exacerbation or injury. 10-Not Attempted due to Environmental Limitations-(lack of equipment, weather restraints, etc.). 88-Not Attempted due to Medical Conditions or Safety Concerns. Bed Mobility: 6 Transfers (B,C,W/C): 6 Gait: 6 Indoor Mobility (Ambulation): Independent Prior Devices Use: Walker PT Evaluation-Current Subjective Patient agrees to PT. She reports she is very weak and tired. Objective Patient Orientation: Normal For Age Attachments: Oxygen ROM/Strength ROM Lower Extremities bilateral LE WFL Strength Lower Extremities 3/5 grossly bilateral LE Integumentary/Posture Integumentary refer to nursing notes Bowel Incontinence: No Bladder Incontinence: No Posture WFL Neuromuscular (Tone, Coordination, Reflexes) grossly intact Sensory Vision: Functional Hearing: Functional Sensation Right Lower Extremit: Impaired Sensation Left Lower Extremity: Impaired Transfers Roll Left to Right (QC): 6 Lying to Sitting/Side of Bed(Q: 6 Sit to Stand (QC): 4 Chair/Coh-qm-Flusc Xfer(QC): 4 Gait Does the Patient Walk?: Yes Mode of Locomotion: Walk Anticipated Mode of Locomotion: Walk Walk 10 feet (QC): 4 (CGA) Walk 50 ft with 2 Turns(QC): 4 (CGA) Walk 150 ft (QC): 88 Distance: 100' Gait Assistive Device: FWW Comments/Gait Description very slow, shuffle gait sequence Balance Sitting Static: Normal Sitting Dynamic: Normal Standing Static: Fair Standing Dynamic: Fair Assessment/Needs 66 y.o. female, will benefit from skilled PT to address functional strength and mobility to improve current LOF to safely return to home with spouse at maximum LOF. Rehab Potential: Fair PT Tube Lancer Goals Tube Lancer Goals PT Tube Lancer Goals Time Frame: Aug 30, 2021 Roll Left & Right (QC): 6 Sit to Lying (QC): 6 Lying-Sitting on Side/Bed(QC): 6 Sit to Stand (QC): 6 Chair/Pbr-dv-Tvyxu Xfer(QC): 6 Toilet Transfer (QC): 6 Walk 10 feet (QC): 6 Walk 50ft with 2 Turns (QC): 6 Walk 150 ft (QC): 6 PT Plan Problem List Problem List: Activity Tolerance, Functional Strength, Safety, Balance, Gait, Transfer Treatment/Plan Treatment Plan: Continue Plan of Care Treatment Plan: Education, Functional Activity Kwame, Functional Strength, Gait, Safety, Therapeutic Exercise, Transfers Treatment Duration: Aug 30, 2021 Frequency: 6 times per week Estimated Hrs Per Day: .25 hour per day Patient and/or Family Agrees t: Yes Time/GCodes Time In: 816 Time Out: 835 Total Billed Treatment Time: 19 Total Billed Treatment 1 visit EVModC 19 min MAIKEL LEDEZMA PT Aug 18, 2021 10:01
[2021-08-18] MEDS ORDERED: ONDA4TAB11 PO (10:02)
[2021-08-18] MEDS ORDERED: ASPI81TA16 PO (10:05)
[2021-08-18] MEDS ORDERED: GUAI600T43 PO (10:06)
[2021-08-18 12:00] VITALS: BP 87/49
[2021-08-18 16:00] VITALS: BP 91/53
--- NOTE | 2021-08-18 16:03 | Progress Note ---
Subjective Subjective/Events-last exam Patient feeling much better this AM. No acute concerns. + BM w/o noticeable blood. Tolerating PO diet. Review of Systems Pulmonary: No Dyspnea, No Cough Cardiovascular: Edema; No: Chest Pain, Palpitations Gastrointestinal: No: Nausea, Vomiting, Abdominal Pain, Diarrhea, Constipation Genitourinary: No Dysuria, No Frequency, No Incontinence Neurological: Weakness, Incoordination Objective Exam Last Set of Vital Signs Vital Signs Date Time Temp Pulse Resp B/P (MAP) Pulse Ox O2 Delivery O2 Flow Rate FiO2 08/18/21 14:30 Nasal Cannula 2.00 08/18/21 12:00 36.2 60 18 87/49 (62) 99 Capillary Refill : Less Than 3 Seconds I&O Intake and Output 08/18/21 00:00 Intake Total 880 ml Output Total 1280 ml Balance -400 ml Intake Oral 880 ml Output Urine Total 1280 ml # Voids 1 # Bowel Movements 1 General: Alert, Oriented X3, Cooperative, No Acute Distress Lungs: Clear to Auscultation, Normal Air Movement Heart: Regular Rate, No Murmurs Abdomen: Normal Bowel Sounds, Soft, No Tenderness, No Masses Extremities: Other (1+ pitting edema bilaterally) Skin: No Rashes, No Breakdown Neuro: Normal Speech, Sensation Intact, Cranial Nerves 3-12 NL Psych/Mental Status: Mental Status NL, Mood NL Results/Procedures Lab Laboratory Tests 08/18/21 05:40: White Blood Count 5.5, Red Blood Count 3.72L, Hemoglobin 8.8L, Hematocrit 31L, Mean Corpuscular Volume 82, Mean Corpuscular Hemoglobin 24L, Mean Corpuscular Hemoglobin Concent 29L, Red Cell Distribution Width 17.1H, Platelet Count 338, Mean Platelet Volume 10.9, Immature Granulocyte % (Auto) 0, Neutrophils (%) (Auto) 57, Lymphocytes (%) (Auto) 26, Monocytes (%) (Auto) 13H, Eosinophils (%) (Auto) 3, Basophils (%) (Auto) 1, Neutrophils # (Auto) 3.1, Lymphocytes # (Auto) 1.4, Monocytes # (Auto) 0.7, Eosinophils # (Auto) 0.2, Basophils # (Auto) 0.1, Immature Granulocyte # (Auto) 0.0, Sodium Level 134L, Potassium Level 3.6, Chloride Level 98, Carbon Dioxide Level 19L, Anion Gap 17H, Blood Urea Nitrogen 34H, Creatinine 1.29, Estimat Glomerular Filtration Rate 41, BUN/Creatinine Ratio 26, Glucose Level 95, Calcium Level 9.5, Corrected Calcium 9.7, Total Bilirubin 0.4, Aspartate Amino Transf (AST/SGOT) 37H, Alanine Aminotransferase (ALT/SGPT) 27, Alkaline Phosphatase 89, Total Protein 6.6, Albumin 3.7 Assessment/Plan Assessment/Plan (1) Acute combined systolic and diastolic heart failure Status: Acute Assessment & Plan: 08/18: Cardiology consulted, Appreciate recommendations, ok for discharge from cardiac standpoint (2) Normocytic anemia Status: Chronic Assessment & Plan: 08/18: Will get iron studies, patient has had multiple transfusions in the past (3) Chronic GI bleeding Status: Chronic Assessment & Plan: 08/18: Previous EGD/Colonoscopy in April (4) CAD (coronary artery disease) Status: Chronic Qualifiers: Qualified Codes: I25.10 - Atherosclerotic heart disease of [place] coronary artery without angina pectoris (5) HTN (hypertension) Status: Chronic Assessment & Plan: 08/18: Normotensive currently, will continue to monitor Qualifiers: Qualified Codes: I10 - Essential (primary) hypertension (6) HLD (hyperlipidemia) Status: Chronic Qualifiers: Qualified Codes: E78.5 - Hyperlipidemia, unspecified (7) Physical debility Status: Acute Assessment & Plan: 08/18: PT/OT, plan to d/c home tomorrow, uses walker at baseline LUIZ GORDILLO MD Aug 18, 2021 16:03
[2021-08-18] MEDS: ENOXAPARIN 40 MG/0.4 ML (LOVENOX) SYR SC SCH (19:36)
[2021-08-18 19:37] VITALS: BP 94/55
[2021-08-18] MEDS: ONDANSETRON 4 MG/2 ML (SDV) Z0FRAN IVP PRN (19:43)
[2021-08-19] VITALS: BP 129/63
[2021-08-19 04:00] VITALS: BP 134/76
[2021-08-19] MEDS: ONDANSETRON 4 MG/2 ML (SDV) Z0FRAN IVP PRN ×2 (04:37→20:40)
[2021-08-19] MEDS: LOPERAMIDE 2 MG (IMODIUM) TABLET PO PRN ×2 (04:43→10:11)
[2021-08-19] MEDS: HYDROcodone/APAP 5 MG/325 MG (LORTAB) TAB PO PRN (04:45)
[2021-08-19 05:58] LABS: BASOPHILS # (AUTO) 0.1 10^3/uL (0.0-0.1); BASOPHILS % (AUTO) 1 % (0-10); EOSINOPHILS # (AUTO) 0.2 10^3/uL (0.0-0.3); EOSINOPHILS % (AUTO) 2 % (0-10); HEMATOCRIT 34 % (35-52); LYMPHOCYTES # (AUTO) 1.1 10^3/uL (1.0-4.0); LYMPHOCYTES % (AUTO) 11 % (12-44); MEAN CORPUSCULAR HEMOGLOBIN 24 pg (25-34); MEAN CORPUSCULAR HGB CONC 30 g/dL (32-36); MEAN CORPUSCULAR VOLUME 83 fL (80-99); MEAN PLATELET VOLUME 10.9 fL (9.0-12.2); MONOCYTES # (AUTO) 0.9 10^3/uL (0.0-1.0); MONOCYTES % (AUTO) 8 % (0-12); NEUTROPHILS % (AUTO) 77 % (42-75); PLATELET COUNT 393 10^3/uL (130-400); WHITE BLOOD COUNT 10.3 10^3/uL (4.3-11.0)
[2021-08-19 06:20] LABS: CALCIUM 10.2 MG/DL (8.5-10.1); CREATININE SERUM 1.39 MG/DL (0.60-1.30); POTASSIUM 3.5 MMOL/L (3.6-5.0)
[2021-08-19 08:00] VITALS: BP 109/60
--- NOTE | 2021-08-19 08:16 | Cardiology Progress Note ---
Subjective Date Seen by Provider: Aug 19, 2021 Time Seen by Provider: 08:14 Subjective/Events-last exam Patient is in bed, c/o diarrhea, denies any blood in stool. Denies any chest pain or dyspnea. Review of Systems General: No Chills, No Night Sweats, No Fatigue, No Malaise, No Appetite, No Other HEENT: No Head Aches, No Visual Changes, No Eye Pain, No Ear Pain, No Dysphasia, No Sinus Congestion, No Post Nasal Drip, No Sore Throat, No Other Pulmonary: No Dyspnea, No Cough, No Pleuritic Chest Pain, No Other Cardiovascular: No: Chest Pain, Palpitations, Orthopnea, Paroxysmal Noc. Dyspnea, Edema, Lt Headedness, Other Objective-Cardiology Exam Last Set of Vital Signs Vital Signs 08/19/21 08:00 Temp 36.7 Pulse 56 Resp 16 B/P (MAP) 109/60 (76) Pulse Ox 100 O2 Delivery Nasal Cannula O2 Flow Rate 1.00 I&O Intake and Output 08/19/21 00:00 Intake Total 1150 ml Output Total 650 ml Balance 500 ml Intake Oral 1150 ml Output Urine Total 650 ml General: Alert, Oriented X3, Cooperative, No Acute Distress HEENT: Atraumatic Neck: Supple, +2 Carotid Pulse No Bruit Lungs: Clear to Auscultation, Normal Air Movement Heart: Regular Rate, No Murmurs Abdomen: Normal Bowel Sounds, Soft, No Tenderness, No Masses Extremities: No Edema Skin: No Rashes, No Breakdown Neuro: Normal Speech, Sensation Intact, Cranial Nerves 3-12 NL Psych/Mental Status: Mental Status NL, Mood NL Results Lab Laboratory Tests 08/19/21 05:30 A/P-Cardiology Admission Diagnosis Acute on chronic CHF CAD HTN Anemia Assessment/Plan Acute on chronic combined systolic and diastolic CHF, maintained on Entresto, Coreg, Lasix. Echocardiogram done on August 18, 2021 showing normal LV size, EF 35 to 40%, grade 2 diastolic dysfunction, dilated left atrium, moderate mitral regurgitation. Acute renal failure, diarrhea and dehydration, hold Lasix today, discontinue Entresto, I will consider restarting losartan at a low dose once she is more stable Diarrhea, worsening today, have persistent diarrhea, managed by primary care physician, consider starting if needed Generalized weakness, starting physical therapy, managed by primary care team Coronary artery disease, history of coronary stenting done in 2015 at [facility]. Cardiac catheterization done on 05/07/2021 showing severe stenosis at the first obtuse marginal branch, moderate size artery, heavily calcified proximal LAD and tortuous LAD mild to moderate disease nonobstructive disease, calcified artery with mild to moderate disease, prominent left ventricle with diffuse left ventricular hypokinesia ejection fraction 40%, heavily calcified aortic arch and brachiocephalic artery with moderate stenosis. on 07/23/21 had Aborted attempt for cardiac catheterization due to failure to establish access using both femoral artery and right radial artery with medical research assistant of ultrasound, and was referred to [facility] where she underwent stenting to the left circumflex system. She will need to continue dual antiplatelet therapy for a minimum of 1 month. Clopidogrel resumed on 08/16 and resumed her aspirin yesterday. We will need to watch her hemoglobin level closely in light of her chronic anemia. After 30 days of dual a ntiplatelet therapy, it may not be unreasonable to stop aspirin and continue monotherapy with clopidogrel in light of the chronic anemia. She should continue on beta-derrick and statin medication. Anemia, continue to monitor H/H. Hypertension, was borderline hypotensive, I will d/c Entresto and continue to monitor. Continue on beta derrick Acute renal insufficiency, having slightly worsening kidney function, c/o diarrhea, could be secondary to Entresto. I will hold Lasix and d/c Entresto at this time. Continue to monitor renal function. Hyperlipidemia, maintained on statin. Peripheral arterial disease, reporting advanced disease, managed by Dr. Lei at [facility], scheduled an appointment on July 31 for follow-up visit History of tobaccoism, stopped in 2015 History of heavy alcohol use stopped in 2011 History of hepatic cirrhosis Carotid stenosis, last ultrasound was done in June 2020 and she was referred to Dr. Loco at [facility], recommended conservative management, following with Dr. Lei at this point Supervisory-Addendum Brief Supervisory Addendum Participated in pt care: history, MDM, physical Personally performed: exam, history, MDM Care discussed with: KERVIN Results interpretation: Verified all documentation Notes: Patient was seen and evaluated with Soledad, examination performed, management plan was discussed, agree with the current scribed note, I made few changes to the note using Italic font SOLEDAD BARRIGA Aug 19, 2021 08:16 SUSAN LIM MD Aug 19, 2021 08:56
[2021-08-19] MEDS ORDERED: FUROSEMIDE 20 MG (LASIX) TAB PO SCH (09:00)
[2021-08-19] MEDS ORDERED: ACETAMINOPHEN 325 MG TABLET PO PRN (09:30)
[2021-08-19] MEDS: KCL 10 MEQ TAB (MICRO K) PO SCH (10:10)
[2021-08-19] MEDS: CLOPIDOGREL 75 MG (PLAVIX) TABLET PO SCH (10:11)
[2021-08-19] MEDS: PANTOPRAZOLE 40 MG (PROTONIX) TAB PO SCH (10:11)
[2021-08-19] MEDS: SUCRALFATE 1 GM (CARAFATE) TAB PO SCH ×3 (10:11→17:50)
[2021-08-19] MEDS: MULTIVIT W/MINERALS TAB (THERAGRAN M) PO SCH (10:11)
[2021-08-19] MEDS: ISOSORBIDE MONONITRATE 30 MG (IMDUR) TAB PO SCH (10:11)
[2021-08-19] MEDS: ASPIRIN E.C. 81 MG (ECOTRIN) TAB PO SCH (10:11)
[2021-08-19] MEDS: SENNA W/DOCUSATE (SENOKOT S) TABLET PO SCH ×2 (10:12→20:33)
[2021-08-19] MEDS: polyethylene glycoL POWDER 17 GM (MIRALAX) PACK PO SCH ×2 (10:12→19:53)
--- NOTE | 2021-08-19 10:13 | Physical Therapy Daily Note ---
PT Daily Note-Current Subjective Patient agrees to PT. C/o nausea and abdominal issues Mental Status Patient Orientation: Normal For Age Attachments: Oxygen Transfers SCALE: Activities may be completed with or without assistive devices. 6-Itecbgsunm-fbmcfgh completes the activity by him/herself with no assistance from a helper. 5-Set-up or Clean-up Assistance-helper sets up or cleans up; patient completes activity. [place] assists only prior to or following the activity. 4-Supervision or Touching Assistance-helper provides verbal cues and/or touching/steadying and/or contact guard assistance as patient completes activity. Assistance may be provided throughout the activity or intermittently. 3-Partial/Moderate Assistance-helper does LESS THAN HALF the effort. [place] lifts, holds or supports trunk or limbs, but provides less than half the effort. 2-Substantial/Maximal Assistance-helper does MORE THAN HALF the effort. [place] lifts or holds trunk or limbs and provides more than half the effort. 5-Ksoatyrrp-xqyakr does ALL the effort. Patient does none of the effort to complete the activity. Or, the assistance of 2 or more helpers is required for the patient to complete the activity. If activity was not attempted, code reason: 7-Patient Refused. 9-Not Applicable-not attempted and the patient did not perform the activity before the current illness, exacerbation or injury. 10-Not Attempted due to Environmental Limitations-(lack of equipment, weather restraints, etc.). 88-Not Attempted due to Medical Conditions or Safety Concerns. Sit to Lying (QC): 6 Lying to Sitting/Side of Bed(Q: 6 Sit to Stand (QC): 5 Gait Training Does the Patient Walk?: Yes Distance: 150' Walk 10 feet (QC): 4 (SBA) Walk 50 ft with 2 Turns(QC): 4 (SBA) Walk 150 ft (QC): 4 (SBA) Gait Assistive Device: FWW slow, steady, functional gait sequence Assessment Patient does fatigue with minimal activity and returned to bed sidelying right for comfort. Continue to increase activity as tolerated by patient. PT Halfway Goals Halfway Goals PT Potato Chip Cooker Machine Goals Time Frame: Aug 30, 2021 Roll Left & Right (QC): 6 Sit to Lying (QC): 6 Lying-Sitting on Side/Bed(QC): 6 Sit to Stand (QC): 6 Chair/Ena-sy-Emuar Xfer(QC): 6 Toilet Transfer (QC): 6 Walk 10 feet (QC): 6 Walk 50ft with 2 Turns (QC): 6 Walk 150 ft (QC): 6 PT Plan Treatment/Plan Treatment Plan: Continue Plan of Care Treatment Plan: Education, Functional Activity Kwame, Functional Strength, Gait, Safety, Therapeutic Exercise, Transfers Treatment Duration: Aug 30, 2021 Frequency: 6 times per week Estimated Hrs Per Day: .25 hour per day Patient and/or Family Agrees t: Yes Time/GCodes Time In: 936 Time Out: 947 Total Billed Treatment Time: 11 Total Billed Treatment 1 visit FA 11 min MAIKEL LEDEZMA PT Aug 19, 2021 10:13
[2021-08-19] MEDS: BUDESONIDE ER 3 MG CAP (ENTOCORT) PO SCH (10:14)
--- NOTE | 2021-08-19 11:48 | Progress Note ---
Subjective Subjective/Events-last exam States that she has been having diarrhea all night and has an upset stomach. Denies any fever or chills. Tolerating PO diet. Review of Systems Pulmonary: No Dyspnea, No Cough Cardiovascular: No: Chest Pain, Palpitations Gastrointestinal: Nausea, Diarrhea; No: Vomiting Neurological: Weakness Objective Exam Last Set of Vital Signs Vital Signs Date Time Temp Pulse Resp B/P (MAP) Pulse Ox O2 Delivery O2 Flow Rate FiO2 08/19/21 08:00 Nasal Cannula 1.00 08/19/21 08:00 36.7 56 16 109/60 (76) 100 Capillary Refill : Less Than 3 Seconds I&O Intake and Output 08/18/21 23:59 Intake Total 1150 ml Output Total 650 ml Balance 500 ml Intake Oral 1150 ml Output Urine Total 650 ml General: Alert, Oriented X3, Cooperative, No Acute Distress Lungs: Clear to Auscultation, Normal Air Movement Heart: Regular Rate, No Murmurs Abdomen: Normal Bowel Sounds, Soft, No Tenderness, No Masses Extremities: No Edema, No Tenderness/Swelling Neuro: Normal Speech, Sensation Intact Results/Procedures Lab Laboratory Tests 08/19/21 05:30: White Blood Count 10.3, Red Blood Count 4.11, Hemoglobin 10.0L, Hematocrit 34L, Mean Corpuscular Volume 83, Mean Corpuscular Hemoglobin 24L, Mean Corpuscular Hemoglobin Concent 30L, Red Cell Distribution Width 17.2H, Platelet Count 393, Mean Platelet Volume 10.9, Immature Granulocyte % (Auto) 1, Neutrophils (%) (Auto) 77H, Lymphocytes (%) (Auto) 11L, Monocytes (%) (Auto) 8, Eosinophils (%) (Auto) 2, Basophils (%) (Auto) 1, Neutrophils # (Auto) 8.0H, Lymphocytes # (Auto) 1.1, Monocytes # (Auto) 0.9, Eosinophils # (Auto) 0.2, Basophils # (Auto) 0.1, Immature Granulocyte # (Auto) 0.1, Sodium Level 136, Potassium Level 3.5L, Chloride Level 100, Carbon Dioxide Level 19L, Anion Gap 17H, Blood Urea Nitrogen 39H, Creatinine 1.39H, Estimat Glomerular Filtration Rate 38, BUN/Creatinine Rat io 28, Glucose Level 104, Calcium Level 10.2H Assessment/Plan Assessment/Plan (1) Acute diarrhea Status: Acute Assessment & Plan: 08/19: Will continue to monitor, Immodium ordered as it does not seem infectious (2) Acute renal insufficiency Status: Acute Assessment & Plan: 08/19: Likely combined from over diuresis and diarrhea, BMP in AM (3) Acute combined systolic and diastolic heart failure Status: Acute Assessment & Plan: 08/18: Cardiology consulted, Appreciate recommendations, ok for discharge from cardiac standpoint (4) Normocytic anemia Status: Chronic Assessment & Plan: 08/18: Will get iron studies, patient has had multiple transfusions in the past 08/19: Iron studies pending (5) Chronic GI bleeding Status: Chronic Assessment & Plan: 08/18: Previous EGD/Colonoscopy in April (6) CAD (coronary artery disease) Status: Chronic Qualifiers: Qualified Codes: I25.10 - Atherosclerotic heart disease of [place] coronary artery without angina pectoris (7) HTN (hypertension) Status: Chronic Assessment & Plan: 08/18: Normotensive currently, will continue to monitor Qualifiers: Qualified Codes: I10 - Essential (primary) hypertension (8) HLD (hyperlipidemia) Status: Chronic Qualifiers: Qualified Codes: E78.5 - Hyperlipidemia, unspecified (9) Physical debility Status: Acute Assessment & Plan: 08/18: PT/OT, plan to d/c home tomorrow, uses walker at baseline 08/19: Holding d/c today due to diarrhea and JANICE, will consider d/c in AM LUIZ GORDILLO MD Aug 19, 2021 11:48
[2021-08-19 11:54] VITALS: BP 114/54
--- NOTE | 2021-08-19 12:00 | Occupational Ther Daily Note ---
OT Current Status-Daily Note Subjective Pt laying in bed, states she doesn't feel well today and she has been having diarrhea ADL-Treatment Therapy Code Descriptions/Definitions Functional [facility] Measure: 0=Not Assessed/NA 4=Minimal Assistance 1=Total Assistance 5=Supervision or Setup 2=Maximal Assistance 6=Modified [facility] 3=Moderate Assistance 7=Complete IndependenceSCALE: Activities may be completed with or without assistive devices. 3-Zheanbsfce-sowzhxj completes the activity by him/herself with no assistance from a helper. 5-Set-up or Clean-up Assistance-helper sets up or cleans up; patient completes activity. [place] assists only prior to or following the activity. 4-Supervision or Touching Assistance-helper provides verbal cues and/or touching/steadying and/or contact guard assistance as patient completes activity. Assistance may be provided throughout the activity or intermittently. 3-Partial/Moderate Assistance-helper does LESS THAN HALF the effort. [place] lift s, holds or supports trunk or limbs, but provides less than half the effort. 2-Substantial/Maximal Assistance-helper does MORE THAN HALF the effort. [place] lifts or holds trunk or limbs and provides more than half the effort. 0-Wglnklipu-zelrli does ALL the effort. Patient does none of the effort to complete the activity. Or, the assistance of 2 or more helpers is required for the patient to complete the activity. If activity was not attempted, code reason: 7-Patient Refused. 9-Not Applicable-not attempted and the patient did not perform the activity before the current illness, exacerbation or injury. 10-Not Attempted due to Environmental Limitations-(lack of equipment, weather restraints, etc.). 88-Not Attempted due to Medical Conditions or Safety Concerns. Toileting Hygiene (QC): 6 (IND with hygiene per pt report.) Toilet Transfer (QC): 6 (IND transfer between bed and BSC per pt report.) Other Treatment Pt laying in bed, declined ADLs and OOB activities. Pt agreeable to OT tx with focus on increasing BUE strength and activity tolerance. Pt completed x5 reps each of the following BUE exercises: shoulder flexion, shoulder abduction, elbow flexion, elbow extension and finger flexion/extension. Pt indicates she has been transferring to/from BSC independently and completing toileting independently. Post tx, pt in bed, call light in reach and all needs met. Education OT Patient Education: Correct positioning, Energy conservation, Exercise program, Modified ADL techniques, Progress toward Goal/Update tx plan, Purpose of tx/functional activities Teaching Recipient: Patient Teaching Methods: Demonstration, Discussion Response to Teaching: Verbalize Understanding, Return Demonstration OT Watchmaking Teacher Goals Residential Goals Time Frame: Aug 29, 2021 Eating (QC): 6 Oral Hygiene (QC): 6 Toileting Hygiene (QC): 6 Shower/Bathe Self (QC): 4 Upper Body Dressing (QC): 5 Lower Body Dressing (QC): 4 On/Off Footwear (QC): 4 Additional Goals: 1-Demonstrate ADL Tasks, 2-Verbalize Understanding, 3- ImproveStrength/Kwame 1=Demonstrate adherence to instructed precautions during ADL tasks. 2=Patient will verbalize/demonstrate understanding of assistive devices /modifications for ADL. 3=Patient will improve strength/tolerance for activity to enable patient to perform ADL's. OT Education/Plan Problem List/Assessment Assessment: Decreased Activ Tolerance, Decreased UE Strength, Impaired Funct Balance, Impaired I ADL's, Impaired Self-Care Skills Discharge Recommendations Plan/Recommendations: Continue POC Treatment Plan/Plan of Care Patient would benefit from OT for education, treatment and training to promote independence in ADL's, mobility, safety and/or upper extremity function for ADL's. Plan of Care: ADL Retraining, Functional Mobility, UE Funct Exercise/Act Treatment Duration: Aug 29, 2021 Frequency: 5 times per week Estimated Hrs Per Day: .25 hour per day Rehab Potential: Fair Time/GCodes Start Time: 11:26 Stop Time: 11:36 Total Time Billed (hr/min): 10 Billed Treatment Time 1, EX AVERY QUARLES OT Aug 19, 2021 12:00
[2021-08-19 15:28] VITALS: BP 112/54
[2021-08-19 19:35] VITALS: BP 96/53
[2021-08-19] MEDS: ENOXAPARIN 40 MG/0.4 ML (LOVENOX) SYR SC SCH (20:34)
[2021-08-20 00:57] VITALS: BP 143/67
[2021-08-20 04:27] VITALS: BP 121/57
[2021-08-20 06:57] LABS: BASOPHILS % (AUTO) 0 % (0-10); EOSINOPHILS # (AUTO) 0.1 10^3/uL (0.0-0.3); EOSINOPHILS % (AUTO) 2 % (0-10); HEMATOCRIT 28 % (35-52); HEMOGLOBIN 8.3 g/dL (11.5-16.0); LYMPHOCYTES # (AUTO) 1.1 10^3/uL (1.0-4.0); LYMPHOCYTES % (AUTO) 12 % (12-44); MEAN CORPUSCULAR HEMOGLOBIN 24 pg (25-34); MEAN CORPUSCULAR HGB CONC 30 g/dL (32-36); MEAN CORPUSCULAR VOLUME 82 fL (80-99); MEAN PLATELET VOLUME 10.7 fL (9.0-12.2); MONOCYTES # (AUTO) 0.7 10^3/uL (0.0-1.0); MONOCYTES % (AUTO) 7 % (0-12); NEUTROPHILS # (AUTO) 7.1 10^3/uL (1.8-7.8); NEUTROPHILS % (AUTO) 78 % (42-75); PLATELET COUNT 316 10^3/uL (130-400); WHITE BLOOD COUNT 9.1 10^3/uL (4.3-11.0)
[2021-08-20 07:09] LABS: POTASSIUM 3.9 MMOL/L (3.6-5.0)
[2021-08-20 07:10] LABS: CALCIUM 9.3 MG/DL (8.5-10.1)
[2021-08-20 07:14] LABS: CREATININE SERUM 1.01 MG/DL (0.60-1.30)
[2021-08-20] MEDS: SENNA W/DOCUSATE (SENOKOT S) TABLET PO SCH (07:34)
[2021-08-20] MEDS: polyethylene glycoL POWDER 17 GM (MIRALAX) PACK PO SCH (07:34)
[2021-08-20 08:00] VITALS: BP 136/56
[2021-08-20] MEDS: CLOPIDOGREL 75 MG (PLAVIX) TABLET PO SCH (08:10)
[2021-08-20] MEDS: SUCRALFATE 1 GM (CARAFATE) TAB PO SCH ×2 (08:10→13:54)
[2021-08-20] MEDS: ASPIRIN E.C. 81 MG (ECOTRIN) TAB PO SCH (08:10)
[2021-08-20] MEDS: ISOSORBIDE MONONITRATE 30 MG (IMDUR) TAB PO SCH (08:10)
[2021-08-20] MEDS: KCL 10 MEQ TAB (MICRO K) PO SCH (08:10)
[2021-08-20] MEDS: MULTIVIT W/MINERALS TAB (THERAGRAN M) PO SCH (08:10)
[2021-08-20] MEDS: PANTOPRAZOLE 40 MG (PROTONIX) TAB PO SCH (08:10)
[2021-08-20] MEDS: BUDESONIDE ER 3 MG CAP (ENTOCORT) PO SCH (09:01)
--- NOTE | 2021-08-20 09:33 | Cardiology Progress Note ---
Subjective Date Seen by Provider: Aug 20, 2021 Time Seen by Provider: 08:40 Subjective/Events-last exam Patient is sitting up in bed, reports diarrhea has improved. Review of Systems General: No Chills, No Night Sweats, No Fatigue, No Malaise, No Appetite, No Other HEENT: No Head Aches, No Visual Changes, No Eye Pain, No Ear Pain, No Dysphasia, No Sinus Congestion, No Post Nasal Drip, No Sore Throat, No Other Pulmonary: No Dyspnea, No Cough, No Pleuritic Chest Pain, No Other Cardiovascular: No: Chest Pain, Palpitations, Orthopnea, Paroxysmal Noc. Dyspnea, Edema, Lt Headedness, Other Objective-Cardiology Exam Last Set of Vital Signs Vital Signs 08/20/21 08/20/21 08:00 08:39 Temp 36.4 Pulse 55 Resp 18 B/P (MAP) 136/56 (82) Pulse Ox 97 O2 Delivery Nasal Cannula O2 Flow Rate 2.00 I&O Intake and Output 08/20/21 00:00 Intake Total 1850 ml Output Total 650 ml Balance 1200 ml Intake Oral 1850 ml Output Urine Total 650 ml # Voids 3 # Bowel Movements 6 General: Alert, Oriented X3, Cooperative, No Acute Distress HEENT: Atraumatic Neck: Supple, +2 Carotid Pulse No Bruit Lungs: Clear to Auscultation, Normal Air Movement Heart: Regular Rate, Normal S1, Normal S2, No Murmurs Abdomen: Normal Bowel Sounds, Soft, No Tenderness, No Masses Extremities: No Clubbing, No Cyanosis, No Edema, No Tenderness/Swelling Skin: No Rashes, No Breakdown Neuro: Normal Speech, Sensation Intact Psych/Mental Status: Mental Status NL, Mood NL Results Lab Laboratory Tests 08/20/21 06:15 A/P-Cardiology Admission Diagnosis Acute on chronic CHF CAD HTN Anemia Assessment/Plan Acute on chronic combined systolic and diastolic CHF, maintained on Entresto, Coreg, Lasix. Echocardiogram done on August 18, 2021 showing normal LV size, EF 35 to 40%, grade 2 diastolic dysfunction, dilated left atrium, moderate mitral regurgitation. Acute renal failure, diarrhea and dehydration, Entresto was discontinued. Renal function and diarrhea improved. I will restart losartan prior to discharge Diarrhea, patient reporting improvement. Generalized weakness, starting physical therapy, managed by primary care team Coronary artery disease, history of coronary stenting done in 2016 at [facility]. Cardiac catheterization done on 05/07/2021 showing severe stenosis at the first obtuse marginal branch, moderate size artery, heavily calcified proximal LAD and tortuous LAD mild to moderate disease nonobstructive disease, calcified artery with mild to moderate disease, prominent left ventricle with diffuse left ventricular hypokinesia ejection fraction 40%, heavily calcified aortic arch and brachiocephalic artery with moderate stenosis. on 07/23/21 had Aborted attempt for cardiac catheterization due to failure to establish access using both femoral artery and right radial artery with insurance legal assistant of ultrasound, and was referred to where she underwent stenting to the left circumflex system. She will need to continue dual antiplatelet therapy for a minimum of 1 month. Clopidogrel resumed on 08/16 and resumed her aspirin yesterday. We will need to watch her hemoglobin level closely in light of her chronic anemia. After 30 days of dual antiplatelet therapy, it may not be unreasonable to stop aspirin and continue m onotherapy with clopidogrel in light of the chronic anemia. She should continue on beta-derrick and statin medication. Anemia, continue to monitor H/H. Hypertension, was borderline hypotensive, I will d/c Entresto and continue to monitor. Continue on beta derrick Hyperlipidemia, maintained on statin. Peripheral arterial disease, reporting advanced disease, managed by Dr. Lei at [facility], scheduled an appointment on July 31 for follow-up visit History of tobaccoism, stopped in 2015 History of heavy alcohol use stopped in 2011 History of hepatic cirrhosis Carotid stenosis, last ultrasound was done in June 2020 and she was referred to Dr. Loco at [facility], recommended conservative management, following with Dr. Lei at this point Supervisory-Addendum Brief Supervisory Addendum Participated in pt care: history, MDM, physical Personally performed: exam, history, MDM Care discussed with: KERVIN Results interpretation: Verified all documentation Notes: Patient was seen and evaluated with Soledad, examination performed, management plan was discussed, agree with the current scribed note, I made few changes to the note using Italic font Patient was seen at bedside, sitting comfortably Feeling better, possible discharge today I will restart losartan and monitor blood pressure, monitor renal function as an outpatient. SOLEDAD BARRIGA Aug 20, 2021 09:33 SUSAN LIM MD Aug 20, 2021 13:30
--- NOTE | 2021-08-20 09:51 | Physical Therapy Daily Note ---
PT Daily Note-Current Subjective Pt in bed upon arrival and agrees to tx. During gait, pt states pain in R LE. Mental Status Patient Orientation: Person, Place, Situation Transfers SCALE: Activities may be completed with or without assistive devices. 9-Qrvptdtolo-wnqggdj completes the activity by him/herself with no assistance from a helper. 5-Set-up or Clean-up Assistance-helper sets up or cleans up; patient completes activity. Warren assists only prior to or following the activity. 4-Supervision or Touching Assistance-helper provides verbal cues and/or touching/steadying and/or contact guard assistance as patient completes activity. Assistance may be provided throughout the activity or intermittently. 3-Partial/Moderate Assistance-helper does LESS THAN HALF the effort. Warren lifts, holds or supports trunk or limbs, but provides less than half the effort. 2-Substantial/Maximal Assistance-helper does MORE THAN HALF the effort. [place] lifts or holds trunk or limbs and provides more than half the effort. 8-Wxddhjwfl-wqscvq does ALL the effort. Patient does none of the effort to complete the activity. Or, the assistance of 2 or more helpers is required for the patient to complete the activity. If activity was not attempted, code reason: 7-Patient Refused. 9-Not Applicable-not attempted and the patient did not perform the activity before the current illness, exacerbation or injury. 10-Not Attempted due to Environmental Limitations-(lack of equipment, weather restraints, etc.). 88-Not Attempted due to Medical Conditions or Safety Concerns. Sit to Lying (QC): 6 Lying to Sitting/Side of Bed(Q: 6 Sit to Stand (QC): 5 Gait Training Does the Patient Walk?: Yes Distance: 200' Walk 10 feet (QC): 5 Walk 50 ft with 2 Turns(QC): 5 Walk 150 ft (QC): 5 Gait Assistive Device: FWW Pt has slow, shuffling, antalgic gait w/ flexed posture. Treatments Pt supine to sitting EOB and sit to stand. Pt adjusts brief and dons face mask in standing w/o UE support. Pt has slight unsteady balance, but able to hold CGA. Pt amb 200' in hallways and returns to bed. Pt sit EOB to supine and remains in bed. Pt states she will need to use BSC, but not yet. Pt left in bed with all needs met and call light in hand. Assessment Current Status: Good Progress Pt increasing endurance and strength PT Miniature Set Builder Goals Nursing Home Goals PT Nursing Home Goals Time Frame: Aug 30, 2021 Roll Left & Right (QC): 6 Sit to Lying (QC): 6 Lying-Sitting on Side/Bed(QC): 6 Sit to Stand (QC): 6 Chair/Byr-ts-Cnmge Xfer(QC): 6 Toilet Transfer (QC): 6 Walk 10 feet (QC): 6 Walk 50ft with 2 Turns (QC): 6 Walk 150 ft (QC): 6 PT Plan Treatment/Plan Treatment Plan: Continue Plan of Care Treatment Plan: Education, Functional Activity Kwame, Functional Strength, Gait, Safety, Therapeutic Exercise, Transfers Treatment Duration: Aug 30, 2021 Frequency: 6 times per week Estimated Hrs Per Day: .25 hour per day Patient and/or Family Agrees t: Yes Time/GCodes Time In: 928 Time Out: 943 Total Billed Treatment Time: 15 Total Billed Treatment 1, GT FABIOLA TAPIA [employer] STARCHER Aug 20, 2021 09:51
[2021-08-20] MEDS: HYDROcodone/APAP 5 MG/325 MG (LORTAB) TAB PO PRN (11:18)
--- NOTE | 2021-08-20 11:52 | Discharge Summary ---
Diagnosis/Chief Complaint Date of Admission Aug 15, 2021 at 17:30 Date of Discharge 08/20/2021 Admission Diagnosis Admission Diagnosis See problem list Discharge Diagnosis See below Problems/Diagnosis: (1) Acute diarrhea Assessment & Plan: 08/19: Will continue to monitor, Immodium ordered as it does not seem infectious 08/20: Resolved, likely medication induced, Continue to PO hydrate at home Status: Resolved Resolution Date/Time: 08/20/21 @ 11:49 (2) Acute renal insufficiency Assessment & Plan: 08/19: Likely combined from over diuresis and diarrhea, BMP in AM 08/20: Resolved Status: Resolved Resolution Date/Time: 08/20/21 @ 11:50 (3) Acute combined systolic and diastolic heart failure Assessment & Plan: 08/18: Cardiology consulted, Appreciate recommendations, ok for discharge from cardiac standpoint Status: Acute (4) Normocytic anemia Assessment & Plan: 08/18: Will get iron studies, patient has had multiple hoffman sfusions in the past 08/19: Iron studies pending Status: Chronic (5) Chronic GI bleeding Assessment & Plan: 08/18: Previous EGD/Colonoscopy in April Status: Chronic (6) CAD (coronary artery disease) Qualifiers: Qualified Codes: I25.10 - Atherosclerotic heart disease of [place] coronary artery without angina pectoris Status: Chronic (7) HTN (hypertension) Assessment & Plan: 08/18: Normotensive currently, will continue to monitor Qualifiers: Qualified Codes: I10 - Essential (primary) hypertension Status: Chronic (8) HLD (hyperlipidemia) Qualifiers: Qualified Codes: E78.5 - Hyperlipidemia, unspecified Status: Chronic (9) Physical debility Assessment & Plan: 08/18: PT/OT, plan to d/c home tomorrow, uses walker at [facility] 08/19: Holding d/c today due to diarrhea and JANICE, will consider d/c in AM Status: Acute Discharge Summary-Simple/Stand Consultations Dr Antony: Cardiology Discharge Physical Examination Allergies: Coded Allergies: No Known Drug Allergies (Verified , 05/13/21) Vitals & I&Os Vital Sign - Last 12Hours Date Time Temp Pulse Resp B/P (MAP) Pulse Ox O2 Delivery O2 Flow Rate FiO2 08/20/21 08:39 97 Nasal Cannula 2.00 08/20/21 08:00 36.4 55 18 136/56 (82) Intake and Output 08/20/21 00:00 Intake Total 1650 ml Output Total 400 ml Balance 1250 ml General Appearance: Alert, Oriented X3, Cooperative, No Acute Distress Respiratory: Clear to Auscultation, Normal Air Movement Cardiovascular: Regular Rate, No Murmurs Abdominal: Normal Bowel Sounds, Soft, No Tenderness, No Masses Extremities: No Edema, No Tenderness/Swelling Neuro: Normal Speech, Sensation Intact, Cranial Nerves 3-12 NL Psych/Mental Status: Mental Status NL, Mood NL Hospital Course See final discharge diagnosis. Discussion & Recommendations 66 yo F that presented in acute CHF. Patient was diuresed and shortness of breath greatly improved. She then started having diarrhea and had a bump in her Cr. Diarrhea was likely caused by medication and she was likely dehydrated. On day of discharge diarrhea and bump in Cr was resolved. Will have close f.u with PCP and Cardiology Discharge Condition at discharge stable Instructions to patient/family Please see electronic discharge instructions given to patient. Discharge Medications Reviewed and agree with Discharge Medication list on patient's Discharge Instr uction sheet LUIZ GORDILLO MD Aug 20, 2021 11:52
[2021-08-20] MEDS ORDERED: LOSA100T57 PO (11:55)
--- NOTE | 2021-08-20 11:55 | Discharge Summary ---
Discharge [facility] Reconcile Patient Problems Problems Reviewed?: Yes Discharge Medications New, Converted or Re-Newed RX: Transmitted to Pharmacy Changed Medications: Losartan Potassium (Losartan Potassium) 100 Mg Tablet 50 MG PO DAILY for 30 Days, TAB (Changed from: 100 MG) Continued Medications: Acetaminophen (Tylenol Extra Strength) 500 Mg Tablet 1000 MG PO Q8H PRN for PAIN-MILD (1-4), TAB TAKES 2 (500MG) TABLETS Aspirin (Low Dose Aspirin EC) 81 Mg Tablet.dr 81 MG PO DAILY, TAB Atorvastatin Calcium (Atorvastatin Calcium) 80 Mg Tablet 80 MG PO DAILY, TAB Budesonide (Budesonide ER) 9 Mg Tabdr...er 9 MG PO DAILY, TAB Carvedilol (Carvedilol) 6.25 Mg Tablet 6.25 MG PO BID, TAB Clopidogrel Bisulfate (Clopidogrel) 75 Mg Tablet 75 MG PO DAILY, TAB Fluticasone Propionate (Flonase Allergy Relief) 9.9 Ml [place].susp 1 SPRAY NS DAILY PRN for CONGESTION, EACH Furosemide (Furosemide) 20 Mg Tablet 20 MG PO DAILY, TAB Guaifenesin (Mucinex) 600 Mg Tab.er.12h 600 MG PO DAILY, TAB Isosorbide Mononitrate (Isosorbide Mononitrate ER) 30 Mg Tab.er.24h 30 MG PO DAILY, TAB Multivitamin/Iron/Folic Acid (Centrum Adults Tablet) 1 Each Tablet 1 EACH PO DAILY, TAB Nitroglycerin (Nitroglycerin) 0.4 Mg Tab.subl 0.4 MG SL UD PRN for CHEST PAIN (ANGINA), TAB Ondansetron (Ondansetron Odt) 4 Mg Tab.rapdis 4 MG PO Q8H PRN for NAUSEA/VOMITING-1ST LINE, TAB Pantoprazole Sodium (Protonix) 40 Mg Tablet.dr 40 MG PO DAILY, TAB Potassium Chloride (Potassium Chloride) 10 Meq Tab.er.prt 10 MEQ PO DAILY, TAB Sucralfate (Sucralfate) 1 Gm Tablet 1 GM PO WM, TAB Patient Instructions Goal/Follow Up Appt: Dhaval PCP in 1 week Activity & Diet Discharge Diet: Cardiac Diet Activity as Tolerated: Yes LUIZ GORDILLO MD Aug 20, 2021 11:55
[2021-08-20 12:00] VITALS: BP 111/57
--- NOTE | 2021-08-20 15:19 | Occ Therapy Progress Note ---
Therapy Progress Note OT visited with pt this afternoon. Pt indicates she has no concerns with her ability to complete ADLs, and plans on discharging as soon as family arrives. Pt indicates she has been independent with toileting and she dressed herself independently. No further skilled OT services indicated at this time as pt is at PLOF and IND with ADLs. d/c from OT 1, visit AVERY QUARLES OT Aug 20, 2021 15:19
== END 2021-08-20 14:46 | disposition home health service (06) | DRG 292 ==
LOC: ER FS 11:37 → EDUNIT# 11:37 → 4TH 17:30
PROVIDERS: ADMIT Internal Medicine; ATTEND Family Medicine
DX: I11.0 Hypertensive heart disease with heart failure (principal); K92.2 Gastrointestinal hemorrhage, unspecified; N17.9 Acute kidney failure, unspecified; I50.43 Acute on chronic combined systolic (congestive) and diastolic (congestive) heart failure; D64.9 Anemia, unspecified; K52.839 Microscopic colitis, unspecified; J43.9 Emphysema, unspecified; I25.10 Atherosclerotic heart disease of native coronary artery without angina pectoris; E78.00 Pure hypercholesterolemia, unspecified; K21.9 Gastro-esophageal reflux disease without esophagitis; R01.1 Cardiac murmur, unspecified; I73.9 Peripheral vascular disease, unspecified; I42.9 Cardiomyopathy, unspecified; I27.21 Secondary pulmonary arterial hypertension; I08.1 Rheumatic disorders of both mitral and tricuspid valves; E78.2 Mixed hyperlipidemia; I65.29 Occlusion and stenosis of unspecified carotid artery; E86.0 Dehydration; R53.1 Weakness; Z87.891 Personal history of nicotine dependence; Z79.899 Other long term (current) drug therapy; Z95.5 Presence of coronary angioplasty implant and graft
CPT/HCPCS: 36415; 71045; 71046; 80048; 80053; 81000; 82728; 83540; 83550; 83880; 84484; 85025; 93005; 93306; 94760

== ENCOUNTER 2021-11-05 09:19 | Outpatient (RCR) | payer MEDICARE, MEDICAID ==
[2021-10-24 14:31] LABS: ABSOLUTE RETIC # 76 10e9/uL (24-90); BASOPHILS # (AUTO) 0.1 10^3/uL (0.0-0.1); BASOPHILS % (AUTO) 1 % (0-10); EOSINOPHILS # (AUTO) 0.1 10^3/uL (0.0-0.3); EOSINOPHILS % (AUTO) 2 % (0-10); HEMATOCRIT 25 % (35-52); HEMOGLOBIN 7.2 g/dL (11.5-16.0); LYMPHOCYTES # (AUTO) 1.3 10^3/uL (1.0-4.0); LYMPHOCYTES % (AUTO) 19 % (12-44); MEAN CORPUSCULAR HEMOGLOBIN 22 pg (25-34); MEAN CORPUSCULAR HGB CONC 29 g/dL (32-36); MEAN CORPUSCULAR VOLUME 77 fL (80-99); MEAN PLATELET VOLUME 11.1 fL (9.0-12.2); MONOCYTES # (AUTO) 0.6 10^3/uL (0.0-1.0); MONOCYTES % (AUTO) 9 % (0-12); NEUTROPHILS # (AUTO) 4.6 10^3/uL (1.8-7.8); NEUTROPHILS % (AUTO) 69 % (42-75); PLATELET COUNT 243 10^3/uL (130-400); RETICULOCYTE % 2.34 % (0.50-2.40); WHITE BLOOD COUNT 6.7 10^3/uL (4.3-11.0)
[2021-10-24 14:51] LABS: ALBUMIN 3.9 GM/DL (3.2-4.5); BILIRUBIN,TOTAL 0.6 MG/DL (0.1-1.0); CALCIUM 9.3 MG/DL (8.5-10.1); CREATININE SERUM 0.85 MG/DL (0.60-1.30); POTASSIUM 4.2 MMOL/L (3.6-5.0); TOTAL PROTEIN 5.8 GM/DL (6.4-8.2)
[2021-10-24 23:22] LABS: HEPATITIS C ANTIBODY C Non-Reactive (Non-Reactive)
[~2021-11-05 09:19] MED LIST changes: +ASPI81TA16 PO; +FERRIC CARBOXYMALTOSE (CANCER) 750 MG in NS (IVPB) CANCER CENTER 250 ML IV SCH; +GUAI600T43 PO; +NS (IVPB) CANCER CENTER 250 ML ONE; +ONDA4TAB11 PO; +POTA-169 PO; -POTA10TA36 PO; +POTA10TA37 PO; -POTA20TA8 PO
== END 2021-11-21 | disposition home or self-care (01) ==
LOC: ONC 09:19
PROVIDERS: ATTEND Internal Medicine Hematology & Oncology
DX: D50.9 Iron deficiency anemia, unspecified (principal); J44.9 Chronic obstructive pulmonary disease, unspecified; I25.10 Atherosclerotic heart disease of native coronary artery without angina pectoris; I73.9 Peripheral vascular disease, unspecified; K74.60 Unspecified cirrhosis of liver; Z95.5 Presence of coronary angioplasty implant and graft
CPT/HCPCS: 80053; 80074; 82728; 83540; 83550; 85025; 85045; G0463; 36415; 36430; 86850; 86900; 86901; 86920; 96365; 99214

== ENCOUNTER 2022-01-06 10:03 | Outpatient (RCR) | payer MEDICARE, MEDICAID ==
[~2022-01-06 10:03] MED LIST changes: -FERRIC CARBOXYMALTOSE (CANCER) 750 MG in NS (IVPB) CANCER CENTER 250 ML IV SCH; -NS (IVPB) CANCER CENTER 250 ML ONE
[2022-01-06 10:36] LABS: BASOPHILS % (AUTO) 1 % (0-10); EOSINOPHILS # (AUTO) 0.1 10^3/uL (0.0-0.3); EOSINOPHILS % (AUTO) 3 % (0-10); HEMATOCRIT 37 % (35-52); LYMPHOCYTES # (AUTO) 0.8 10^3/uL (1.0-4.0); LYMPHOCYTES % (AUTO) 21 % (12-44); MEAN CORPUSCULAR HEMOGLOBIN 34 pg (25-34); MEAN CORPUSCULAR HGB CONC 33 g/dL (32-36); MEAN CORPUSCULAR VOLUME 104 fL (80-99); MEAN PLATELET VOLUME 10.5 fL (9.0-12.2); MONOCYTES # (AUTO) 0.4 10^3/uL (0.0-1.0); MONOCYTES % (AUTO) 10 % (0-12); NEUTROPHILS # (AUTO) 2.4 10^3/uL (1.8-7.8); NEUTROPHILS % (AUTO) 64 % (42-75); PLATELET COUNT 118 10^3/uL (130-400); WHITE BLOOD COUNT 3.8 10^3/uL (4.3-11.0)
[2022-01-06 11:00] LABS: ALBUMIN 3.8 GM/DL (3.2-4.5); BILIRUBIN,TOTAL 0.4 MG/DL (0.1-1.0); CREATININE SERUM 0.82 MG/DL (0.60-1.30); POTASSIUM 3.7 MMOL/L (3.6-5.0); TOTAL PROTEIN 6.6 GM/DL (6.4-8.2)
== END 2022-01-19 | disposition home or self-care (01) ==
LOC: ONC 10:03
PROVIDERS: ATTEND Internal Medicine Hematology & Oncology
DX: D50.9 Iron deficiency anemia, unspecified (principal)
CPT/HCPCS: 80053; 82728; 83540; 83550; 85025

== ENCOUNTER → 2022-01-14 | Outpatient (CLI) | payer MEDICARE, MEDICAID ==
--- NOTE | 2022-01-14 15:08 | Diagnostic Imaging Report ---
INDICATION: Left hip pain status post fall. COMPARISON: None. FINDINGS: AP view of the pelvis and two dedicated radiographic views of the left hip were obtained. There is no fracture, dislocation, bone destruction, or radiopaque foreign body. The visualized pelvic osseous structures and the SI joints demonstrate no acute fracture or dislocation. There is no bone destruction or radiopaque foreign body. The surrounding soft tissue structures are unremarkable. Advanced calcified arteriosclerosis is noted. IMPRESSION: No acute fracture or dislocation in the pelvis or left hip. Dictated by: Dictated on workstation # [id number]
== END ==
LOC: RAD FS 12:25
PROVIDERS: ATTEND Nurse Practitioner Family
DX: M25.552 Pain in left hip (principal); Z91.81 History of falling
CPT/HCPCS: 73502

== ENCOUNTER → 2022-02-16 | Outpatient (CLI) | payer MEDICARE, MEDICAID ==
--- NOTE | 2022-02-16 10:52 | Diagnostic Imaging Report ---
INDICATION: Mid back pain. Time Of Exam: 9:43 AM AP and lateral views of the thoracic spine were obtained. Curvature and alignment is normal. Vertebral body heights are well-maintained. No acute compression fracture seen. There is some generalized thoracic spondylosis. Thoracic aorta is heavily calcified. IMPRESSION: Thoracic spondylosis. No acute bony abnormality is detected. Dictated by: Dictated on workstation # [id number]
== END ==
LOC: RAD FS 09:21
PROVIDERS: ATTEND Nurse Practitioner
DX: M47.814 Spondylosis without myelopathy or radiculopathy, thoracic region (principal)
CPT/HCPCS: 72070

== ENCOUNTER 2022-04-10 15:25 | Emergency (ER) | payer MEDICARE, MEDICAID ==
[~2022-04-10] VITALS: Ht 165.1 cm; Wt 42.6 kg
[2022-04-10] MEDS ORDERED: NS IV 500 ML 500 ML IV STA (15:32)
[2022-04-10 15:42] LABS: BASOPHILS # (AUTO) 0.1 10^3/uL (0.0-0.1); BASOPHILS % (AUTO) 1 % (0-10); EOSINOPHILS % (AUTO) 1 % (0-10); HEMATOCRIT 34 % (35-52); HEMOGLOBIN 11.7 g/dL (11.5-16.0); LYMPHOCYTES # (AUTO) 0.7 10^3/uL (1.0-4.0); LYMPHOCYTES % (AUTO) 19 % (12-44); MEAN CORPUSCULAR HEMOGLOBIN 37 pg (25-34); MEAN CORPUSCULAR HGB CONC 34 g/dL (32-36); MEAN CORPUSCULAR VOLUME 107 fL (80-99); MEAN PLATELET VOLUME 10.2 fL (9.0-12.2); MONOCYTES # (AUTO) 0.4 10^3/uL (0.0-1.0); MONOCYTES % (AUTO) 11 % (0-12); NEUTROPHILS # (AUTO) 2.6 10^3/uL (1.8-7.8); NEUTROPHILS % (AUTO) 68 % (42-75); PLATELET COUNT 186 10^3/uL (130-400); WHITE BLOOD COUNT 3.8 10^3/uL (4.3-11.0)
--- NOTE | 2022-04-10 15:47 | ED General ---
General Chief Complaint: Chest Pain Stated Complaint: LOW BP/LOW PULSE Source of Information: Patient, EMS, Old Records History of Present Illness Date Seen by Provider: April 10, 2022 Time Seen by Provider: 15:25 Initial Comments 66-year-old female presenting with EMS from urgent care. She states that she has not felt well for the last several days. Her home health nurse today told her that her heart rate was going into the 30s and was dangerous so she went to the urgent care clinic. There she was found to have frequent PVCs and they were concerned about an irregular heartbeat. She also reportedly had a blood pressure of 88 systolic. She was having some intermittent left lateral chest pains. But denies having any pain currently. She states she recently had medication for some fluid on her lung but she was finishing that up now. Timing/Duration: 2-3 Days Severity: Moderate Modifying Factors: worse with Movement Associated Systoms: Chest Pain (Intermittent left lateral chest pain), Cough (Chronic and no worse than usual); No Diaphoresis, No Fever/Chills, No Headaches, No Loss of Appetite, No Malaise, No Nausea/Vomiting, No Seizure, No Shortness of Air, No Syncope; Weakness Allergies and Home Medications Allergies Coded Allergies: No Known Drug Allergies (Verified , 05/13/21) Patient Home Medication List Home Medication List Reviewed: Yes Acetaminophen (Tylenol Extra Strength) 500 Mg Tablet, 1,000 MG PO Q8H PRN for PA IN-MILD (1-4), (Reported) Entered as Reported by: OSBALDO CATHERINE on 06/02/21 0903 Aspirin (Low Dose Aspirin EC) 81 Mg Tablet.dr, 81 MG PO DAILY, (Reported) Entered as Reported by: CHEN CHARLES on 08/18/21 1005 Atorvastatin Calcium (Atorvastatin Calcium) 80 Mg Tablet, 80 MG PO DAILY, (Reported) Entered as Reported by: DOMINIC CAMEJO on 12/09/18 0842 Budesonide (Budesonide ER) 9 Mg Tabdr...er, 9 MG PO DAILY, (Reported) Entered as Reported by: OSBALDO CATHERINE on 07/23/21 1220 Carvedilol (Carvedilol) 6.25 Mg Tablet, 6.25 MG PO BID, (Reported) Entered as Reported by: NADEEM BASHIR on 05/07/21 1053 Clopidogrel Bisulfate (Clopidogrel) 75 Mg Tablet, 75 MG PO DAILY, (Reported) Entered as Reported by: OSBALDO CATHERINE on 06/02/21 0900 Fluticasone Propionate (Flonase Allergy Relief) 9.9 Ml [place].susp, 1 SPRAY NS DAILY PRN for CONGESTION, (Reported) Entered as Reported by: OSBALDO CATHERINE on 07/23/21 1220 Furosemide (Furosemide) 20 Mg Tablet, 20 MG PO DAILY, (Reported) Entered as Reported by: OSBALDO CATHERINE on 06/02/21 0900 Guaifenesin (Mucinex) 600 Mg Tab.er.12h, 600 MG PO DAILY, (Reported) Entered as Reported by: CHEN CHARLES on 08/18/21 1006 Isosorbide Mononitrate (Isosorbide Mononitrate ER) 30 Mg Tab.er.24h, 30 MG PO DAILY, (Reported) Entered as Reported by: DOMINIC CAMEJO on 12/09/18 0842 Losartan Potassium (Losartan Potassium) 100 Mg Tablet, 50 MG PO DAILY Prescribed by: LUIZ GORDILLO on 08/20/21 1155 Multivitamin/Iron/Folic Acid (Centrum Adults Tablet) 1 Each Tablet, 1 EACH PO DAILY, (Reported) Entered as Reported by: NADEEM BASHIR on 05/07/21 1053 Nitroglycerin (Nitroglycerin) 0.4 Mg Tab.subl, 0.4 MG SL UD PRN for CHEST PAIN (ANGINA), (Reported) Entered as Reported by: NADEEM BASHIR on 05/07/21 1053 Ondansetron (Ondansetron Odt) 4 Mg Tab.rapdis, 4 MG PO Q8H PRN for NAUSEA/VOMITING-1ST LINE, (Reported) Entered as Reported by: CHEN CHARLES on 08/18/21 1002 Pantoprazole Sodium (Protonix) 40 Mg Tablet.dr, 40 MG PO DAILY, (Reported) Entered as Reported by: OSBALDO CATHERINE on 06/02/21 0900 Potassium Chloride (Potassium Chloride) 10 Meq Tab.er.prt, 10 MEQ PO DAILY, (Reported) Entered as Reported by: OSBALDO CATHERINE on 06/02/21 0900 Sucralfate (Sucralfate) 1 Gm Tablet, 1 GM PO WM, (Reported) Entered as Reported by: OSBALDO CATHERINE on 06/02/21 0900 Review of Systems Review of Systems Constitutional: No chills, No fever; malaise EENTM: no symptoms reported Respiratory: see HPI Cardiovascular: see HPI Gastrointestinal: no symptoms reported Genitourinary: no symptoms reported Musculoskeletal: no symptoms reported Skin: no symptoms reported Psychiatric/Neurological: No Symptoms Reported Past Jozcunx-Zwjoyh-Hztefl Hx Immunizations Up To Date Tetanus Booster (TDap): Unknown First/Initial COVID19 Vaccinat: 2020 Second COVID19 Vaccination Rom: January 2021 Third COVID19 Vaccination Date: 2020 Seasonal Allergies Seasonal Allergies: No Past Medical History Surgery/Hospitalization HX: CAD, Anemia, microscopic colitis, COPD on home oxygen Surgeries: Yes (CARDIAC CATH--STENTS X 2; CERVICAL CONIZATION) Gallbladder Respiratory: Yes COPD, Emphysema Currently Using CPAP: No Cardiac: Yes Coronary Artery Disease, Heart Murmur, High Cholesterol, Hypertension Neurological: No Headaches /Migraines Reproductive Disorders: Yes (CERVICAL DYSPLASIA. 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 Genitourinary: Yes Kidney Infection Gastrointestinal: Yes Colitis, Gastroesophageal Reflux, Gastrointestinal Bleed Musculoskeletal: Yes (ARTHRITIS --KNEES, BACK) Arthritis, Chronic Back Pain Endocrine: No HEENT: Yes Cancer: No Psychosocial: No Integumentary: No Blood Disorders: Yes (ANEMIA --CURRENT PROBLEM STARTING 12/08/18) Family Medical History Heart Disease, Diabetes Physical Exam Vital Signs Vital Signs - First Documented 04/10/22 04/10/22 15:30 16:05 Temp 36.1 Pulse 58 Resp 16 B/P (MAP) 190/97 (128) Pulse Ox 99 O2 Delivery Room Air O2 Flow Rate 3.00 Capillary Refill : Height, Weight, BMI Height: 5'6.00" Weight: 150lbs. 4.8oz. 68.833861oi; 19.73 BMI Method:Stated General Appearance: No Apparent Distress, Chronically ill, Thin Eyes: Bilateral Eye PERRL, Bilateral Eye EOMI HEENT: Pharynx Normal Neck: Full Range of Motion, Normal Inspection, Non Tender, Supple Respiratory: Chest Non Tender, Lungs Clear, Normal Breath Sounds, No Accessory Muscle Use Cardiovascular: Regular Rate, Rhythm, Normal Peripheral Pulses, Extra Beats Gastrointestinal: Normal Bowel Sounds, No Pulsatile Mass, Non Tender, Soft Rectal: Deferred Back: No CVA Tenderness Extremity: Normal Capillary Refill, Normal Range of Motion, No Pedal Edema Neurologic/Psychiatric: Alert, Oriented x3, No Motor/Sensory Deficits, layboy tender II- XII Norm as Tested Skin: Normal Color, Warm/Dry Progress/Results/Core Measures Suspected Sepsis SIRS Temperature: Pulse: Respiratory Rate: Laboratory Tests 04/10/22 15:35: White Blood Count 3.8L Blood Pressure / Mean: Laboratory Tests 04/10/22 15:35: Creatinine 1.05, INR Comment 1.0, Platelet Count 186, Total Bilirubin 0.7 Results/Orders Lab Results Laboratory Tests Test 04/10/22 15:35 04/10/22 16:00 Range/Units White Blood Count 3.8 L 4.3-11.0 10^3/uL Red Blood Count 3.20 L 3.80-5.11 10^6/uL Hemoglobin 11.7 11.5-16.0 g/dL Hematocrit 34 L 35-52 % Mean Corpuscular Volume 107 H 80-99 fL Mean Corpuscular Hemoglobin 37 H 25-34 pg Mean Corpuscular Hemoglobin Concent 34 32-36 g/dL Red Cell Distribution Width 12.7 10.0-14.5 % Platelet Count 186 130-400 10^3/uL Mean Platelet Volume 10.2 9.0-12.2 fL Immature Granulocyte % (Auto) 0 % Neutrophils (%) (Auto) 68 42-75 % Lymphocytes (%) (Auto) 19 12-44 % Monocytes (%) (Auto) 11 0-12 % Eosinophils (%) (Auto) 1 0-10 % Basophils (%) (Auto) 1 0-10 % Neutrophils # (Auto) 2.6 1.8-7.8 10^3/uL Lymphocytes # (Auto) 0.7 L 1.0-4.0 10^3/uL Monocytes # (Auto) 0.4 0.0-1.0 10^3/uL Eosinophils # (Auto) 0.0 0.0-0.3 10^3/uL Basophils # (Auto) 0.1 0.0-0.1 10^3/uL Immature Granulocyte # (Auto) 0.0 0.0-0.1 10^3/uL Prothrombin Time 14.0 12.2-14.7 SEC INR Comment 1.0 0.8-1.4 Activated Partial Thromboplast Time 31 24-35 SEC Sodium Level 134 L 135-145 MMOL/L Potassium Level 3.9 3.6-5.0 MMOL/L Chloride Level 100 98-107 MMOL/L Carbon Dioxide Level 21 21-32 MMOL/L Anion Gap 13 5-14 MMOL/L Blood Urea Nitrogen 23 H 7-18 MG/DL Creatinine 1.05 0.60-1.30 MG/DL Estimat Glomerular Filtration Rate 59 BUN/Creatinine Ratio 22 Glucose Level 111 H 70-105 MG/DL Calcium Level 9.2 8.5-10.1 MG/DL Corrected Calcium 9.1 8.5-10.1 MG/DL Magnesium Level 1.9 1.6-2.4 MG/DL Total Bilirubin 0.7 0.1-1.0 MG/DL Aspartate Amino Transf (AST/SGOT) 20 5-34 U/L Alanine Aminotransferase (ALT/SGPT) 8 0-55 U/L Alkaline Phosphatase 85 40-136 U/L Myoglobin 37.8 10.0-92.0 NG/ML Troponin I < 0.30 <0.30 NG/ML Pro-B-Type Natriuretic Peptide 79130.0 H <75.0 PG/ML Total Protein 6.4 6.4-8.2 GM/DL Albumin 4.1 3.2-4.5 GM/DL Urine Color YELLOW Urine Clarity CLEAR Urine pH 6.5 5-9 Urine Specific [place] <=1.005 1.016-1.022 Urine Protein NEGATIVE NEGATIVE Urine Glucose (UA) NEGATIVE NEGATIVE Urine Ketones NEGATIVE NEGATIVE Urine Nitrite NEGATIVE NEGATIVE Urine Bilirubin NEGATIVE NEGATIVE Urine Urobilinogen 0.2 < = 1.0 MG/DL Urine Leukocyte Esterase NEGATIVE NEGATIVE Urine RBC (Auto) NEGATIVE NEGATIVE Urine RBC 0-2 /HPF Urine WBC NONE /HPF Urine Squamous Epithelial Cells 10-25 H /HPF Urine Crystals NONE /LPF Urine Bacteria FEW H /HPF Urine Casts NONE /LPF Urine Mucus NEGATIVE /LPF Urine Yeast FEW H /HPF Urine Culture Indicated NO My Orders Orders - MICHAEL DIALLO MD Cbc With Automated Diff (04/10/22 15:32) Magnesium (04/10/22 15:32) Chest 1 View Ap/Pa Only (04/10/22 15:32) Ekg Tracing (04/10/22 15:32) Comprehensive Metabolic Panel (04/10/22 15:32) Myoglobin Serum (04/10/22 15:32) Protime With Inr (04/10/22 15:32) Partial Thromboplastin Time (04/10/22 15:32) O2 (04/10/22 15:32) Monitor-Rhythm Ecg Trace Only (04/10/22 15:32) Ed Iv/Invasive Line Start (04/10/22 15:32) Troponin I Fs (04/10/22 15:32) Probnp Fs (04/10/22 15:32) Ns Iv 500 Ml (Sodium Chloride 0.9%) (04/10/22 15:32) Ua Culture If Indicated (04/10/22 15:32) Vital Signs/I&O 04/10/22 04/10/22 04/10/22 15:30 16:05 16:42 Temp 36.1 Pulse 58 68 Resp 16 16 B/P (MAP) 190/97 (128) 143/72 Pulse Ox 99 100 O2 Delivery Room Air Nasal Cannula Room Air O2 Flow Rate 3.00 Capillary Refill : Progress Note #1: Progress Note Check basic labs and urinalysis. Cardiac enzymes to look for signs of myocardial infarction or ischemia. Chest x-ray since she states that she was recently told she had fluid on her lung. She did a round of antibiotics with a Z-Suresh at the beginning of March and then that was followed with a 7-day course of doxycycline that she finished today. We will look for signs of a UTI or worsening pneumonia or electrolyte imbalance to cause her frequent PVCs. EMS was told by urgent care that her blood pressure was very low in addition to her oxygen saturation. She was also reportedly having irregular heartbeat. Here her blood pressure is high and her oxygen saturations are fine especially on her chronic O2. Her heart rhythm does have frequent PVCs. Progress Note #2: Progress Note Labs show stable CBC without acute significant abnormality. Her chemistry was also stable without acute significant abnormality. Her cardiac enzymes were negative. Her chest x-ray did not show any acute infiltrate or pneumonia. Her electrocardiogram as well as cardiac telemetry monitoring showed frequent PVCs. All of her labs and tests. In the get her baseline other than she was having more frequent PVCs. Her heart rate was staying in the 50 to 65 bpm range. As patient appears to be stable on her testing and feels improved after treatment here in the ED and she has no acute indication for admission will discharge patient home with a handout about frequent PVCs. Encouraged to check back through the clinic for continued concerns. She recently had a UTI and then that was followed up by pneumonia or some fluid in her lung. She is taking her last dose of antibiotics today. Encouraged to try drinking some nutritional shakes to help build up her energy and gain some weight. ECG Initial ECG Impression Date: April 10, 2022 Initial ECG Impression Time: 15:35 Initial ECG Rate: 58 Initial ECG Rhythm: Normal Sinus Initial ECG Comparisson: Unchanged Comment Sinus bradycardia with frequent ectopic premature complexes. Heart rate 58 bpm. Left ventricular hypertrophy. No acute ST elevation. QT interval 307 ms with a QTc interval 367 ms. UT interval 169 ms. Overall appears similar to prior tracings in the system. Diagnostic Imaging Diagonstic Imaging: Xray Plain Films/CT/US/NM/MRI: chest Comments NAME: ILIR HOOK [facility] REC#: [id number] PT STATUS: REG ER : 1955 PHYSICIAN: MICHAEL DIALLO MD ADMIT DATE: 04/10/22/ER FS Draft Date of Exam:04/10/22 CHEST 1 VIEW AP/PA ONLY INDICATION: Shortness of breath and chest pain. Frontal chest obtained at 3:40 p.m. Comparison made to 07/28/2021. FINDINGS: Heart is enlarged. There is central vascular congestion with borderline edema. There is hyperinflation compatible with COPD. There is no new infiltrate, pneumothorax, or pleural fluid. IMPRESSION: Cardiomegaly and central vascular congestion with borderline edema as well as COPD change. No consolidation or pleural fluid. Dictated on workstation # [id number] Dict: 04/10/22 1545 Trans: 04/10/22 1551 [id number] Interpreted by: ELIANE DARLING MD Electronically signed by: Reviewed: Reviewed by Me Departure Impression Primary Impression: Frequent PVCs Disposition: 01 HOME, SELF-CARE Condition: Stable Departure-Patient Inst. Decision time for Depature: 16:38 Referrals: DOMINIC JONES APRN (PCP) Primary Care Physician [facility] (Family) Primary Care Physician Patient Instructions: Ventricular Premature Beats Add. Discharge Instructions: Consider drinking some protein or nutrition shakes to help get some extra nutrition until your appetite comes back. Stay hydrated and drink fluids to help with hydration Check back with clinic if still not improving this next week All discharge instructions reviewed with patient and/or family. Voiced understanding. MICHAEL DIALLO MD April 10, 2022 15:47
--- NOTE | 2022-04-10 15:51 | Diagnostic Imaging Report ---
INDICATION: Shortness of breath and chest pain. Frontal chest obtained at 3:40 p.m. Comparison made to 07/28/2021. FINDINGS: Heart is enlarged. There is central vascular congestion with borderline edema. There is hyperinflation compatible with COPD. There is no new infiltrate, pneumothorax, or pleural fluid. IMPRESSION: Cardiomegaly and central vascular congestion with borderline edema as well as COPD change. No consolidation or pleural fluid. Dictated by: Dictated on workstation # [id number]
[2022-04-10 15:58] LABS: ALBUMIN 4.1 GM/DL (3.2-4.5); BILIRUBIN,TOTAL 0.7 MG/DL (0.1-1.0); CALCIUM 9.2 MG/DL (8.5-10.1); CREATININE SERUM 1.05 MG/DL (0.60-1.30); MAGNESIUM 1.9 MG/DL (1.6-2.4); POTASSIUM 3.9 MMOL/L (3.6-5.0); TOTAL PROTEIN 6.4 GM/DL (6.4-8.2)
[2022-04-10 16:06] LABS: BILIRUBIN,URINE NEGATIVE (NEGATIVE); CLARITY,URINE CLEAR; COLOR,URINE YELLOW; GLUCOSE, URINE (UA) NEGATIVE (NEGATIVE); KETONES,URINE NEGATIVE (NEGATIVE); LEUKOCYTE ESTERASE ,URINE NEGATIVE (NEGATIVE); NITRITE,URINE NEGATIVE (NEGATIVE); PH,URINE 6.5 (5-9); PROTEIN,URINE NEGATIVE (NEGATIVE)
[2022-04-10 16:10] LABS: BACTERIA,URINE FEW /HPF; RBC,URINE 0-2 /HPF; YEAST,URINE FEW /HPF
[2022-04-10 16:42] VITALS: BP 143/72
== END 2022-04-10 16:43 | disposition home or self-care (01) ==
LOC: EDUNIT# 15:25 → ER FS 15:26
DX: I49.3 Ventricular premature depolarization (principal)
CPT/HCPCS: 36415; 71045; 80053; 81000; 83735; 83874; 83880; 84484; 85025; 85610; 85730; 93005; 93041

== ENCOUNTER 2022-04-14 09:01 | Outpatient (RCR) | payer MEDICARE, MEDICAID ==
[2022-04-14 09:18] LABS: BASOPHILS % (AUTO) 1 % (0-10); EOSINOPHILS % (AUTO) 1 % (0-10); HEMATOCRIT 38 % (35-52); HEMOGLOBIN 12.6 g/dL (11.5-16.0); LYMPHOCYTES # (AUTO) 1.2 10^3/uL (1.0-4.0); LYMPHOCYTES % (AUTO) 29 % (12-44); MEAN CORPUSCULAR HEMOGLOBIN 36 pg (25-34); MEAN CORPUSCULAR HGB CONC 33 g/dL (32-36); MEAN CORPUSCULAR VOLUME 110 fL (80-99); MEAN PLATELET VOLUME 10.4 fL (9.0-12.2); MONOCYTES # (AUTO) 0.4 10^3/uL (0.0-1.0); MONOCYTES % (AUTO) 9 % (0-12); NEUTROPHILS # (AUTO) 2.5 10^3/uL (1.8-7.8); NEUTROPHILS % (AUTO) 60 % (42-75); PLATELET COUNT 170 10^3/uL (130-400); WHITE BLOOD COUNT 4.2 10^3/uL (4.3-11.0)
[2022-04-14 09:42] LABS: RETICULOCYTE % 1.54 % (0.50-2.40)
[2022-04-14 09:42] LABS: ALBUMIN 3.9 GM/DL (3.2-4.5); BILIRUBIN,TOTAL 0.7 MG/DL (0.1-1.0); CALCIUM 7.8 MG/DL (8.5-10.1); CREATININE SERUM 0.76 MG/DL (0.60-1.30); TOTAL PROTEIN 6.6 GM/DL (6.4-8.2)
== END 2022-04-21 | disposition home or self-care (01) ==
LOC: ONC 09:01
PROVIDERS: ATTEND Internal Medicine Hematology & Oncology
DX: D50.9 Iron deficiency anemia, unspecified (principal)
CPT/HCPCS: 80053; 82607; 82728; 82746; 83540; 83550; 83615; 85025; 85045; G0463; 36415; 99213

== ENCOUNTER 2022-07-21 09:05 | Outpatient (RCR) | payer MEDICARE, MEDICAID ==
[2022-07-21 09:32] LABS: BASOPHILS % (AUTO) 1 % (0-10); EOSINOPHILS % (AUTO) 1 % (0-10); HEMATOCRIT 38 % (35-52); HEMOGLOBIN 12.9 g/dL (11.5-16.0); LYMPHOCYTES % (AUTO) 19 % (12-44); MEAN CORPUSCULAR HEMOGLOBIN 36 pg (25-34); MEAN CORPUSCULAR HGB CONC 34 g/dL (32-36); MEAN CORPUSCULAR VOLUME 106 fL (80-99); MEAN PLATELET VOLUME 10.7 fL (9.0-12.2); MONOCYTES # (AUTO) 0.5 10^3/uL (0.0-1.0); MONOCYTES % (AUTO) 9 % (0-12); NEUTROPHILS # (AUTO) 3.9 10^3/uL (1.8-7.8); NEUTROPHILS % (AUTO) 71 % (42-75); PLATELET COUNT 164 10^3/uL (130-400); WHITE BLOOD COUNT 5.5 10^3/uL (4.3-11.0)
[2022-07-21 09:59] LABS: ALBUMIN 4.1 GM/DL (3.2-4.5); BILIRUBIN,TOTAL 1.1 MG/DL (0.1-1.0); CALCIUM 9.3 MG/DL (8.5-10.1); CREATININE SERUM 0.79 MG/DL (0.60-1.30); POTASSIUM 3.4 MMOL/L (3.6-5.0); TOTAL PROTEIN 6.6 GM/DL (6.4-8.2)
== END 2022-07-22 | disposition home or self-care (01) ==
LOC: ONC 09:05
PROVIDERS: ATTEND Internal Medicine Hematology & Oncology
DX: D50.9 Iron deficiency anemia, unspecified (principal); D75.89 Other specified diseases of blood and blood-forming organs
CPT/HCPCS: 36415; 80053; 85025

== ENCOUNTER 2022-11-17 08:56 | Outpatient (RCR) | payer MEDICARE, MEDICAID ==
[~2022-11-17 08:56] MED LIST changes: +ALBU6.7H13 INH; -ALBU6.7H8 INH; +CLOP-31 PO; -CLOP75TA69 PO; +POTA-177 PO; -POTA10TA37 PO
[2022-11-17 09:21] LABS: BASOPHILS % (AUTO) 0 % (0-10); EOSINOPHILS # (AUTO) 0.1 10^3/uL (0.0-0.3); EOSINOPHILS % (AUTO) 1 % (0-10); HEMATOCRIT 40 % (35-52); HEMOGLOBIN 13.6 g/dL (11.5-16.0); LYMPHOCYTES # (AUTO) 1.8 10^3/uL (1.0-4.0); LYMPHOCYTES % (AUTO) 25 % (12-44); MEAN CORPUSCULAR HEMOGLOBIN 35 pg (25-34); MEAN CORPUSCULAR HGB CONC 34 g/dL (32-36); MEAN CORPUSCULAR VOLUME 103 fL (80-99); MONOCYTES # (AUTO) 0.6 10^3/uL (0.0-1.0); MONOCYTES % (AUTO) 9 % (0-12); NEUTROPHILS # (AUTO) 4.6 10^3/uL (1.8-7.8); NEUTROPHILS % (AUTO) 65 % (42-75); PLATELET COUNT 176 10^3/uL (130-400); WHITE BLOOD COUNT 7.2 10^3/uL (4.3-11.0)
[2022-11-17 09:41] LABS: BILIRUBIN,TOTAL 0.5 MG/DL (0.1-1.0); CALCIUM 9.2 MG/DL (8.5-10.1); CREATININE SERUM 0.75 MG/DL (0.60-1.30); POTASSIUM 3.8 MMOL/L (3.6-5.0); TOTAL PROTEIN 6.7 GM/DL (6.4-8.2)
== END 2022-11-21 | disposition home or self-care (01) ==
LOC: ONC 08:56
PROVIDERS: ATTEND Internal Medicine Hematology & Oncology
DX: D50.9 Iron deficiency anemia, unspecified (principal)
CPT/HCPCS: 80053; 82728; 83540; 83550; 85025; G0463; 36415; 99213

== ENCOUNTER → 2022-11-19 | Outpatient (CLI) | payer MEDICARE, MEDICAID | LOC: CARDFS 14:51 | PROVIDERS: ATTEND Internal Medicine Cardiovascular Disease | DX: I08.3 Combined rheumatic disorders of mitral, aortic and tricuspid valves (principal); I11.9 Hypertensive heart disease without heart failure; I25.10 Atherosclerotic heart disease of native coronary artery without angina pectoris | CPT/HCPCS: 93306 ==

== ENCOUNTER 2023-03-15 12:10 | Emergency (ER) | payer MEDICARE, MEDICAID ==
[~2023-03-15] VITALS: Ht 165.1 cm; Wt 36.7 kg
[2023-03-15 12:25] LABS: BASOPHILS # (AUTO) 0.1 10^3/uL (0.0-0.1); BASOPHILS % (AUTO) 1 % (0-10); EOSINOPHILS # (AUTO) 0.1 10^3/uL (0.0-0.3); EOSINOPHILS % (AUTO) 1 % (0-10); HEMATOCRIT 44 % (35-52); HEMOGLOBIN 15.2 g/dL (11.5-16.0); LYMPHOCYTES % (AUTO) 15 % (12-44); MEAN CORPUSCULAR HEMOGLOBIN 34 pg (25-34); MEAN CORPUSCULAR HGB CONC 34 g/dL (32-36); MEAN CORPUSCULAR VOLUME 98 fL (80-99); MEAN PLATELET VOLUME 9.1 fL (9.0-12.2); MONOCYTES # (AUTO) 0.6 10^3/uL (0.0-1.0); MONOCYTES % (AUTO) 9 % (0-12); NEUTROPHILS # (AUTO) 4.8 10^3/uL (1.8-7.8); NEUTROPHILS % (AUTO) 73 % (42-75); PLATELET COUNT 296 10^3/uL (130-400); WHITE BLOOD COUNT 6.6 10^3/uL (4.3-11.0)
--- NOTE | 2023-03-15 12:25 | ED Abdominal Pain ---
General Chief Complaint: Abdominal/GI Problems Stated Complaint: ABD PAIN Nursing Triage Note: PT TO ROOM FS06 [facility]IA [facility] WITH C/O ABD PAIN STARTING THIS MORNING AFTER TAKING HER MEDS. Source of Information: Patient, EMS, Detention Records, Old Records History of Present Illness Date Seen by Provider: Mar 15, 2023 Time Seen by Provider: 12:17 Initial Comments 67 yo female presenting with complaint of abdominal pain since taking medicine this am. EMS transported her to the ED. she reports having a history of microscopic colitis. She has had pain like this previously but has been doing well on budesonide and oral medicines. They had recently stopped her budesonide as they wanted to have her not taking a steroid long-term. She called her GI doctor at [facility] last Wednesday but has not heard back from them about having recurrent pain and diarrhea. Today she had an episode of diarrhea and was having the severe cramping pain that was worse after she took her morning medications. She did not eat anything when she took her medicines. She was feeling weak overall and her pain seemed to be increasing her blood pressure. She denies having any fever, chills, blood in her stools, blood in her urine, painful urination. Timing/Duration: 1-3 Hours Severity/Quality: Severe, Cramping Location: Generalized Abdomen Activities at Onset: Other (Had just taken her morning medications but not eaten anything) Modifying Factors: Worsens With Eating Associated Symptoms: No Back Pain, No Chest Pain, No Diaphoresis, No Fever/Chills; Fatigue, Heartburn, Nausea/Vomiting, Shortness of Air (Chronic and no worse than usual); No Swelling/Mass in Abdomen, No Syncope; Weakness Allergies and Home Medications Allergies Coded Allergies: No Known Drug Allergies (Verified , 05/13/21) Patient Home Medication List Home Medication List Reviewed: Yes Acetaminophen (Tylenol Extra Strength) 500 Mg Tablet, 1,000 MG PO Q8H PRN for PAIN-MILD (1-4), (Reported) Entered as Reported by: OSBALDO CATHERINE on 06/02/21 0903 Aspirin (Low Dose Aspirin EC) 81 Mg Tablet.dr, 81 MG PO DAILY, (Reported) Entered as Reported by: CHEN CHARLES on 08/18/21 1005 Atorvastatin Calcium (Atorvastatin Calcium) 80 Mg Tablet, 80 MG PO DAILY, (Reported) Entered as Reported by: DOMINIC CAMEJO on 12/09/18 0842 Budesonide (Budesonide ER) 9 Mg Tabdr...er, 9 MG PO DAILY, (Reported) Entered as Reported by: OSBALDO CATHERINE on 07/23/21 1220 Budesonide (Budesonide EC) 3 Mg Capdr...er, 3 MG PO UD Prescribed by: MICHAEL DIALLO on 03/15/23 1637 Carvedilol (Carvedilol) 6.25 Mg Tablet, 6.25 MG PO BID, (Reported) Entered as Reported by: NADEEM BASHIR on 05/07/21 1053 Ciprofloxacin HCl (Ciprofloxacin HCl) 250 Mg Tablet, 250 MG PO BID Prescribed by: MCIHAEL DIALLO on 03/15/23 1637 Clopidogrel Bisulfate (Clopidogrel) 75 Mg Tablet, 75 MG PO DAILY, (Reported) Entered as Reported by: OSBALDO CATHERINE on 06/02/21 0900 Dicyclomine HCl (Dicyclomine HCl) 10 Mg Capsule, 10 MG PO TID PRN for ABDOMINAL PAIN Prescribed by: IMCHAEL DIALLO on 03/15/23 1637 Fluticasone Propionate (Flonase Allergy Relief) 9.9 Ml [place].susp, 1 SPRAY NS DAILY PRN for CONGESTION, (Reported) Entered as Reported by: OSBALDO CATHERINE on 07/23/21 1220 Furosemide (Furosemide) 20 Mg Tablet, 20 MG PO DAILY, (Reported) Entered as Reported by: OSBALDO CATHERINE on 06/02/21 0900 Guaifenesin (Mucinex) 600 Mg Tab.er.12h, 600 MG PO DAILY, (Reported) Entered as Reported by: CHEN CHARLES on 08/18/21 1006 Isosorbide Mononitrate (Isosorbide Mononitrate ER) 30 Mg Tab.er.24h, 30 MG PO DAILY, (Reported) Entered as Reported by: DOMINIC CAMEJO on 12/09/18 0842 Losartan Potassium (Losartan Potassium) 100 Mg Tablet, 50 MG PO DAILY Prescribed by: LUIZ GORDILLO on 08/20/21 1155 Metronidazole (Metronidazole) 500 Mg Tablet, 500 MG PO BID Prescribed by: MICHAEL DIALLO on 03/15/23 1637 Multivitamin/Iron/Folic Acid (Centrum Adults Tablet) 1 Each Tablet, 1 EACH PO DAILY, (Reported) Entered as Reported by: NADEEM BASHIR on 05/07/21 1053 Nitroglycerin (Nitroglycerin) 0.4 Mg Tab.subl, 0.4 MG SL UD PRN for CHEST PAIN (ANGINA), (Reported) Entered as Reported by: NADEEM BASHIR on 05/07/21 1053 Ondansetron (Ondansetron Odt) 4 Mg Tab.rapdis, 4 MG PO Q8H PRN for NAUSEA/VOMITING-1ST LINE, (Reported) Entered as Reported by: CHEN CHARLES on 08/18/21 1002 Ondansetron (Ondansetron Odt) 4 Mg Tab.rapdis, 4 MG PO Q8H PRN for NAUSEA/VOMITING Prescribed by: MICHAEL DIALLO on 03/15/23 1637 Pantoprazole Sodium (Protonix) 40 Mg Tablet.dr, 40 MG PO DAILY, (Reported) Entered as Reported by: OSBALDO CATHERINE on 06/02/21 0900 Potassium Chloride (Potassium Chloride) 10 Meq Tab.er.prt, 10 MEQ PO DAILY, (Reported) Entered as Reported by: OSBALDO CATHERINE on 06/02/21 0900 Sucralfate (Sucralfate) 1 Gm Tablet, 1 GM PO WM, (Reported) Entered as Reported by: OSBALDO CATHERINE on 06/02/21 09 Review of Systems Review of Systems Constitutional: No chills, No fever EENTM: No Symptoms Reported Respiratory: No Symptoms Reported Cardiovascular: No Symptoms Reported Gastrointestinal: See HPI Genitourinary: See HPI Musculoskeletal: no symptoms reported Skin: No rash Psychiatric/Neurological: See HPI Past Vfyyutg-Puggys-Trtgma Hx Patient Social History Tobacco Use?: No Smoking Status: Never a Smoker Smokeless Tobacco Frequency: Never a User Use of E-Cig and/or Vaping dev: No Use of E-Cig and/or Vaping Jose: Never a User Substance use?: No Alcohol Use?: No Pt feels they are or have been: No Immunizations Up To Date Tetanus Booster (TDap): Unknown First/Initial COVID19 Vaccinat: 2020 Second COVID19 Vaccination Rom: January 2021 Third COVID19 Vaccination Date: 2020 Seasonal Allergies Seasonal Allergies: No Past Medical History Surgery/Hospitalization HX: CAD, Anemia, microscopic colitis, COPD on home oxygen Surgeries: Yes (CARDIAC CATH--STENTS X 2; CERVICAL CONIZATION) Gallbladder Respiratory: Yes COPD, Emphysema Currently Using CPAP: No Cardiac: Yes Coronary Artery Disease, Heart Murmur, High Cholesterol, Hypertension Neurological: No Headaches /Migraines Reproductive Disorders: Yes (CERVICAL DYSPLASIA. 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 Genitourinary: Yes Kidney Infection Gastrointestinal: Yes Colitis, Gastroesophageal Reflux, Gastrointestinal Bleed Musculoskeletal: Yes (ARTHRITIS --KNEES, BACK) Arthritis, Chronic Back Pain Endocrine: No HEENT: Yes Cancer: No Psychosocial: No Integumentary: No Blood Disorders: Yes (ANEMIA --CURRENT PROBLEM STARTING 12/08/18) Family Medical History Heart Disease, Diabetes Physical Exam Vital Signs Vital Signs - First Documented 03/15/23 12:10 Temp 35.4 Pulse 104 Resp 14 B/P (MAP) 161/105 (123) Pulse Ox 94 O2 Delivery Room Air Capillary Refill : Less Than 3 Seconds Height/Weight/BMI Height: 5'6.00" Weight: 150lbs. 4.8oz. [id number]; 13.00 BMI Method:Stated General Appearance: other (Appears chronically ill with mild to moderate distress) HEENT: PERRL/EOMI, pharynx normal Neck: non-tender, full range of motion, supple, normal inspection Respiratory: chest non-tender, no respiratory distress, no accessory muscle use, decreased breath sounds Cardiovascular: normal peripheral pulses, tachycardia Gastrointestinal: normal bowel sounds, soft, no pulsatile mass; No distended, No guarding, No rebound; tenderness (Diffuse tenderness to palpation without rebound or guarding) Rectal: deferred Extremities: normal range of motion, non-tender, normal capillary refill 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 as tested, alert, oriented x 3 Skin: normal color, warm/dry Progress/Results/Core Measures Results/Orders Lab Results Laboratory Tests Test 03/15/23 12:12 03/15/23 14:14 Range/Units White Blood Count 6.6 4.3-11.0 10^3/uL Red Blood Count 4.50 3.80-5.11 10^6/uL Hemoglobin 15.2 11.5-16.0 g/dL Hematocrit 44 35-52 % Mean Corpuscular Volume 98 80-99 fL Mean Corpuscular Hemoglobin 34 25-34 pg Mean Corpuscular Hemoglobin Concent 34 32-36 g/dL Red Cell Distribution Width 12.5 10.0-14.5 % Platelet Count 296 130-400 10^3/uL Mean Platelet Volume 9.1 9.0-12.2 fL Immature Granulocyte % (Auto) 1 % Neutrophils (%) (Auto) 73 42-75 % Lymphocytes (%) (Auto) 15 12-44 % Monocytes (%) (Auto) 9 0-12 % Eosinophils (%) (Auto) 1 0-10 % Basophils (%) (Auto) 1 0-10 % Neutrophils # (Auto) 4.8 1.8-7.8 10^3/uL Lymphocytes # (Auto) 1.0 1.0-4.0 10^3/uL Monocytes # (Auto) 0.6 0.0-1.0 10^3/uL Eosinophils # (Auto) 0.1 0.0-0.3 10^3/uL Basophils # (Auto) 0.1 0.0-0.1 10^3/uL Immature Granulocyte # (Auto) 0.0 0.0-0.1 10^3/uL Prothrombin Time 13.0 12.2-14.7 SEC INR Comment 0.9 0.8-1.4 Activated Partial Thromboplast Time 31 24-35 SEC Sodium Level 136 135-145 MMOL/L Potassium Level 3.3 L 3.6-5.0 MMOL/L Chloride Level 98 98-107 MMOL/L Carbon Dioxide Level 20 L 21-32 MMOL/L Anion Gap 18 H 5-14 MMOL/L Blood Urea Nitrogen 11 7-18 MG/DL Creatinine 0.69 0.60-1.30 MG/DL Estimat Glomerular Filtration Rate 95 BUN/Creatinine Ratio 16 Glucose Level 231 H 70-105 MG/DL Calcium Level 9.8 8.5-10.1 MG/DL Corrected Calcium 9.8 8.5-10.1 MG/DL Total Bilirubin 0.6 0.1-1.0 MG/DL Aspartate Amino Transf (AST/SGOT) 24 5-34 U/L Alanine Aminotransferase (ALT/SGPT) 11 0-55 U/L Alkaline Phosphatase 101 40-136 U/L Troponin I < 0.30 <0.30 NG/ML Pro-B-Type Natriuretic Peptide 23251.0 H <125.0 PG/ML Total Protein 7.6 6.4-8.2 GM/DL Albumin 4.0 3.2-4.5 GM/DL Lipase 33 8-78 U/L Urine Color YELLOW Urine Clarity CLEAR Urine pH 6.5 5-9 Urine Specific Cascade 1.015 L 1.016-1.022 Urine Protein NEGATIVE NEGATIVE Urine Glucose (UA) NEGATIVE NEGATIVE Urine Ketones NEGATIVE NEGATIVE Urine Nitrite NEGATIVE NEGATIVE Urine Bilirubin NEGATIVE NEGATIVE Urine Urobilinogen 0.2 < = 1.0 MG/DL Urine Leukocyte Esterase NEGATIVE NEGATIVE Urine RBC (Auto) TRACE-I H NEGATIVE Urine RBC NONE /HPF Urine WBC NONE /HPF Urine Squamous Epithelial Cells 0-2 /HPF Urine Crystals NONE /LPF Urine Bacteria NEGATIVE /HPF Urine Casts PRESENT /LPF Urine Hyaline Casts 2-5 H /LPF Urine Mucus NEGATIVE /LPF Urine Culture Indicated NO My Orders Orders - MICHAEL DIALLO MD Comprehensive Metabolic Panel (03/15/23 12:15) Lipase (03/15/23 12:15) Ua Culture If Indicated (03/15/23 12:15) Ed Iv/Invasive Line Start (03/15/23 12:15) Cbc With Automated Diff (03/15/23 12:15) Ekg Tracing (03/15/23 12:15) Troponin I Fs (03/15/23 12:15) Probnp Fs (03/15/23 12:15) Protime With Inr (03/15/23 12:15) Partial Thromboplastin Time (03/15/23 12:15) Straight Cath For Spec.-Adult (03/15/23 12:40) Ct Abdomen/Pelvis W (03/15/23 12:40) Ns Iv 1000 Ml (Sodium Chloride 0.9%) (03/15/23 12:40) Pantoprazole Injection (Protonix Injecti (03/15/23 12:40) Fentanyl Inj (Sublimaze Injection) (03/15/23 12:40) Ondansetron Injection (Zofran Injectio (03/15/23 12:40) O2 (03/15/23 12:40) Iohexol Injection (Omnipaque 350 Mg/Ml 1 (03/15/23 13:30) Received Contrast (Hold Metformin- Contr (03/15/23 13:30) Ns (Ivpb) (Sodium Chloride 0.9% Ivpb Bag (03/15/23 13:30) Dexamethasone Injection (Decadron Inje (03/15/23 15:16) Fentanyl Inj (Sublimaze Injection) (03/15/23 15:16) Metronidazole 500mg/100ml Ivpb (Flagyl 5 (03/15/23 15:16) Ciprofloxacin Tablet (Cipro Tablet) (03/15/23 15:16) Medications Given in ED Current Medications Medications Dose Ordered Sig/Zulma Route Start Time Stop Time Status Last Admin Dose Admin Iohexol 100 ml ONCE ONCE IV 03/15/23 13:30 03/15/23 13:31 DC 03/15/23 13:43 60 ML Sodium Chloride 100 ml ONCE ONCE IV 03/15/23 13:30 03/15/23 13:31 DC 03/15/23 13:43 100 ML Vital Signs/I&O 03/15/23 03/15/23 03/15/23 12:10 12:10 16:43 Temp 35.4 35.4 Pulse 104 75 Resp 14 14 B/P (MAP) 161/105 (123) 177/93 Pulse Ox 94 95 O2 Delivery Room Air Room Air Room Air Blood Pressure Mean: 123 Progress Progress Note #1: Progress Note Potential diagnosis of ischemic colitis, colitis, diverticulitis, bowel obstruction, pyelonephritis, cystitis, gastroenteritis. Obtain urine complete blood count, comprehensive metabolic profile, lipase, urinalysis, CT scan of the abdomen pelvis with IV contrast. Administer normal saline 1 L IV fluid bolus for hydration. Fentanyl 25 mcg IV for pain, Zofran 4 mg IV for nausea, Pantoprazole 40 mg IV for epigastric pain/gastritis. Progress Note #2: Progress Note Patient's complete blood count showed a normal white blood cell count at 6.6 without elevation. Her hemoglobin was not showing anemia as it was at 15.2. Her comprehensive metabolic panel did not show any acute significant abnormality on her basic electrolytes. Her glucose was elevated to 231 which could be related to her pain and stress reaction. Her troponin was less than 0.3. Her proBNP was elevated at 12,134. Lipase was normal at 33. Coagulation factors were not elevated to indicate a coagulopathy. Urinalysis did not show any infection and had a specific gravity of 1.015. On my personal interpretation and review of her CT scan of the abdomen and pelvis I did not appreciate any acute mass or bowel obstruction. She had extensive atherosclerotic changes. Progress Note #3: Progress Note I reviewed the radiologist report on the CT scan of the abdomen and pelvis and the did not appreciate any ischemic bowel but did have extensive atherosclerotic changes. She had some inflammation of the intestine colon consistent with her history of colitis. There is no bowel obstruction or perforation or mass. When reviewing results with the patient she reports that she was feeling better with treatment and ED. She has been drinking some water without having increasing pain or having any vomiting. Her colitis could be related to inflammation or possible infection so will administer antibiotics in case there is a bacterial source as well as restart steroids to give her a chance to check back with her GI doctor through about how they want to manage her colitis. Since she has been doing well on the budesonide will restart that at 6 mg a day for 14 days and then 3 mg a day for 14 days. This should give her plenty of time to get with the GI doctors at to see how they want to manage her colitis and symptoms. Will give a 1 week course of Cipro and Flagyl. Administer Flagyl 500 mg IV x1 here in the ED as well as oral ciprofloxacin. Counseled patient that I could try using some dicyclomine or Bentyl at home for abdominal pain as needed. Will give a dose of dexamethasone 10 mg IV here in the ED to try and help with her colitis. Provided she is able to have pain staying at a tolerable level will discharge to home to continue the steroids and antibiotics in addition to her home medications. She should hold her Lipitor or atorvastatin for the next week while she is taking the antibiotics and could restart it the next day after finishing the antibiotics. If her pain was not tolerable then we will check with hospitalist about possible admission for IV fluids and IV steroid as well as pain control. Progress Note #4: Time: 16:22 Progress Note On recheck of the patient she was doing well after the antibiotics that infused. Her heart rate is improved to sinus rhythm in the 70s on her cardiac telemetry monitoring. She felt like the pain was at a tolerable level where she could go home. Will proceed with the plan as outlined above. Encouraged to check back with her GI doctor for continued direction on her care. Initial ECG Impression Date: Mar 15, 2023 Initial ECG Impression Time: 13:59 Initial ECG Rate: 92 Initial ECG Rhythm: A Fib/Flutter Initial ECG Comparisson: Changed (04/10/2022 sinus with frequent PVCs) Comment On my personal interpretation and review the electrocardiogram shows atrial fibrillation with a heart rate of 92 bpm. There is findings for left ventricular hypertrophy. No acute ST elevation. QT interval 389 ms with a QTc interval 439 ms. Tonight is a change compared to her prior electrocardiogram from April 10, 2022 where she had sinus rhythm with frequent PVCs Diagnostic Imaging Diagonstic Imaging: CT Plain Films/CT/US/NM/MRI: abdomen, pelvis Comments [facility], [place] NAME: ILIR HOOK [facility] REC#: [id number] PT STATUS: REG ER : 1955 PHYSICIAN: MICHAEL DIALLO MD ADMIT DATE: 03/15/23/ER FS Draft Date of Exam:03/15/23 CT ABDOMEN/PELVIS W PROCEDURE: CT abdomen and pelvis with contrast. TECHNIQUE: Multiple contiguous axial images were obtained through the abdomen and pelvis after administration of intravenous contrast. Auto Exposure Controls were utilized during the CT exam to meet ALARA standards for radiation dose reduction. All CT scans use one or more of the following dose optimizing techniques: automated exposure control, MA and/or KvP adjustment based on patient size and exam type or iterative reconstruction. INDICATION: Diffuse severe abdominal pain. FINDINGS: There is a severe aortoiliac atherosclerotic vascular disease. There is large bulky dense calcifications throughout the lumen of the abdominal aorta at and just above the level of the renal arteries. There is some flow in the vessel distal to that site however extensive mixed soft and hard plaque are present. The left common iliac is occluded. There is severe calcified plaque in the distal right common iliac. There is absence of detectable flow throughout the left external iliac and severe calcified plaque at the left common femoral, where there is at least partial intermittent reconstitution of the left upper SFA. Severe disease throughout the right common iliac but at least some flow in the right common iliac is present however the right external iliac is occluded with some reconstitution at the level of the severely diseased right common femoral artery. This calcified and soft plaque at the celiac takeoff however it was unobstructed, its primary branches are severely diseased. The SMA is occluded proximally but distally does show at least some reconstitution. I am unable to identify a patent AYAH. There is no pneumatosis. There is no free gas. There is some generalized thickening of the luevano of the small and large bowel diffusely which may be infectious or inflammatory. No findings of ravinder bowel necrosis. No obstruction or ileus. The right renal artery is presumed chronically occluded with a diminutive unobstructed right kidney. The left kidney is normal in volume and while there is severe disease of the left renal artery ostia, there is flow in its mid to distal 3rd however stenosis at its origin of at least 60% is suspected. There are some hilar vascular calcifications and likely nonobstructing stone within a lower pole calyx. No hydronephrosis. The urinary bladder is fluid-containing and nonfocal. There is no adnexal lesion. There were no findings of appendicitis or diverticulitis. Liver nonfocal and nonacute aside from some heterogeneous fatty infiltration. IMPRESSION: 1. Severe aortoiliac, femoral, renal and mesenteric atherosclerotic disease with proximal SMA occlusion, stenosis celiac origin and likely occluded AYAH with bilateral iliac occlusions. 2. No pneumatosis or free gas. No ileus or bowel obstruction. There is however some diffuse thickening of the small and large bowel luevano throughout the abdomen and pelvis which may be infectious or inflammatory. No perforation. No abscess, hemorrhage or fluid collection. 3. Probable nonobstructing left kidney stone with a chronic nonobstructive right renal atrophy on a chronic ischemic basis. Dictated on workstation # [id number] Dict: 03/15/23 1410 Trans: 03/15/23 1430 [facility] [id number] Interpreted by: TR BRUSH Electronically signed by: Reviewed: Reviewed by Me (I reviewed the radiologist report at 1440) Departure Impression Primary Impression: Microscopic colitis, unspecified Qualified Codes: K52.838 - Other microscopic colitis Additional Impression: Abdominal pain Qualified Codes: R10.84 - Generalized abdominal pain Disposition: 01 HOME, SELF-CARE Condition: Improved Departure-Patient Inst. Decision time for Depature: 16:28 Referrals: DOMINIC JONES APRN (PCP) Primary Care Physician [facility] (Family) Primary Care Physician Patient Instructions: Abdominal Pain, Adult ED, Microscopic Colitis Add. Discharge Instructions: Hold your atorvastatin or Lipitor for the next week while you are taking the antibiotics. The antibiotics will interact with your cholesterol medicine and can cause you to have your body attacking your muscles and breaking them down. You may restart the cholesterol medicine the day after you finish the antibiotics. Try to stay hydrated and make sure you have some food on your stomach when you take your medications. Try taking the dicyclomine or Bentyl as needed for abdominal pain and cramping. Check with your GI specialist over the phone at [facility]. See if they want to have you go back on a low dose steroid or how they want to manage your recurrent pain from your microscopic colitis. If you have worsening symptoms or are not improving then check back with clinic or return to ER for worsening symptoms. All discharge instructions reviewed with patient and/or family. Voiced understanding. Scripts Ondansetron (Ondansetron Odt) 4 Mg Tab.rapdis 4 MG PO Q8H PRN for NAUSEA/VOMITING for 5 Days, #15 TAB 0 Refills Prov: MICHAEL DIALLO MD 03/15/23 Budesonide (Budesonide EC) 3 Mg Capdr...er 3 MG PO UD for Colitis for 28 Days, #42 CAP 0 Refills 6 mg (2 pills) by mouth daily for 14 days, then 3 mg (1 pill) by mouth daily for 14 days Prov: MICHAEL DIALLO MD 03/15/23 Dicyclomine HCl (Dicyclomine HCl) 10 Mg Capsule 10 MG PO TID PRN for ABDOMINAL PAIN for 5 Days, #15 CAP 0 Refills Prov: MICHAEL DIALLO MD 03/15/23 Metronidazole (Metronidazole) 500 Mg Tablet 500 MG PO BID for colitis for 7 Days, #14 TAB 0 Refills Prov: MICHAEL DIALLO MD 03/15/23 Ciprofloxacin HCl (Ciprofloxacin HCl) 250 Mg Tablet 250 MG PO BID for Colitis for 7 Days, #14 TAB 0 Refills Prov: MICHAEL DIALLO MD 03/15/23 MICHAEL DIALLO MD Mar 15, 2023 12:25
[2023-03-15] MEDS ORDERED: fentaNYL INJ 100 MCG/2 ML AMP IVP STA ×2 (12:40→15:16)
[2023-03-15] MEDS ORDERED: PANTOPRAZOLE 40 MG (PROTONIX) VIAL IV STA (12:40)
[2023-03-15] MEDS ORDERED: ONDANSETRON 4 MG/2 ML (SDV) Z0FRAN IVP STA (12:40)
[2023-03-15] MEDS ORDERED: NS IV 1000 ML 1,000 ML IV STA (12:40)
[2023-03-15 12:59] LABS: ALKALINE PHOSPHATASE 101 U/L (40-136); BILIRUBIN,TOTAL 0.6 MG/DL (0.1-1.0); BUN/CREATININE RATIO 16; CALCIUM 9.8 MG/DL (8.5-10.1); CARBON DIOXIDE 20 MMOL/L (21-32); CHLORIDE 98 MMOL/L (98-107); CREATININE SERUM 0.69 MG/DL (0.60-1.30); GFR ESTIMATED 95; GLUCOSE 231 MG/DL (70-105); POTASSIUM 3.3 MMOL/L (3.6-5.0); SODIUM 136 MMOL/L (135-145)
[2023-03-15 13:00] LABS: ALANINE AMINOTRANSFERASE 11 U/L (0-55); LIPASE 33 U/L (8-78); TOTAL PROTEIN 7.6 GM/DL (6.4-8.2)
[2023-03-15 13:01] LABS: INR 0.9 (0.8-1.4)
[2023-03-15] MEDS ORDERED: NS 100 ML (IVPB) BAG IV ONE (13:30)
[2023-03-15] MEDS ORDERED: IOHEXOL 350 MG/ML 100 ML (OMNIPAQUE 350) VIAL IV ONE (13:30)
[2023-03-15] MEDS ORDERED: HOLD METFORMIN - RECEIVED CONTRAST 20 ML VIAL IV SCH (13:30)
[2023-03-15 14:19] LABS: BILIRUBIN,URINE NEGATIVE (NEGATIVE); CLARITY,URINE CLEAR; COLOR,URINE YELLOW; GLUCOSE, URINE (UA) NEGATIVE (NEGATIVE); KETONES,URINE NEGATIVE (NEGATIVE); LEUKOCYTE ESTERASE ,URINE NEGATIVE (NEGATIVE); NITRITE,URINE NEGATIVE (NEGATIVE); PH,URINE 6.5 (5-9); PROTEIN,URINE NEGATIVE (NEGATIVE)
[2023-03-15 14:26] LABS: BACTERIA,URINE NEGATIVE /HPF; SQUAMOUS EPITHELIAL CELL,UR 0-2 /HPF
--- NOTE | 2023-03-15 14:32 | Diagnostic Imaging Report ---
PROCEDURE: CT abdomen and pelvis with contrast. TECHNIQUE: Multiple contiguous axial images were obtained through the abdomen and pelvis after administration of intravenous contrast. Auto Exposure Controls were utilized during the CT exam to meet ALARA standards for radiation dose reduction. All CT scans use one or more of the following dose optimizing techniques: automated exposure control, MA and/or KvP adjustment based on patient size and exam type or iterative reconstruction. INDICATION: Diffuse severe abdominal pain. FINDINGS: There is a severe aortoiliac atherosclerotic vascular disease. There is large bulky dense calcifications throughout the lumen of the abdominal aorta at and just above the level of the renal arteries. There is some flow in the vessel distal to that site however extensive mixed soft and hard plaque are present. The left common iliac is occluded. There is severe calcified plaque in the distal right common iliac. There is absence of detectable flow throughout the left external iliac and severe calcified plaque at the left common femoral, where there is at least partial intermittent reconstitution of the left upper SFA. Severe disease throughout the right common iliac but at least some flow in the right common iliac is present however the right external iliac is occluded with some reconstitution at the level of the severely diseased right common femoral artery. This calcified and soft plaque at the celiac takeoff however it was unobstructed, its primary branches are severely diseased. The SMA is occluded proximally but distally does show at least some reconstitution. I am unable to identify a patent AYAH. There is no pneumatosis. There is no free gas. There is some generalized thickening of the [place] of the small and large bowel diffusely which may be infectious or inflammatory. No findings of ravinder bowel necrosis. No obstruction or ileus. The right renal artery is presumed chronically occluded with a diminutive unobstructed right kidney. The left kidney is normal in volume and while there is severe disease of the left renal artery ostia, there is flow in its mid to distal 3rd however stenosis at its origin of at least 60% is suspected. There are some hilar vascular calcifications and likely nonobstructing stone within a lower pole calyx. No hydronephrosis. The urinary bladder is fluid-containing and nonfocal. There is no adnexal lesion. There were no findings of appendicitis or diverticulitis. Liver nonfocal and nonacute aside from some heterogeneous fatty infiltration. IMPRESSION: 1. Severe aortoiliac, femoral, renal and mesenteric atherosclerotic disease with proximal SMA occlusion, stenosis celiac origin and likely occluded AYAH with bilateral iliac occlusions. 2. No pneumatosis or free gas. No ileus or bowel obstruction. There is however some diffuse thickening of the small and large bowel [place] throughout the abdomen and pelvis which may be infectious or inflammatory. No perforation. No abscess, hemorrhage or fluid collection. 3. Probable nonobstructing left kidney stone with a chronic nonobstructive right renal atrophy on a chronic ischemic basis. Dictated by: Dictated on workstation # [id number]
[2023-03-15] MEDS ORDERED: metroNIDAZOLE 500MG/100ML IVPB 100 ML IV STA (15:16)
[2023-03-15] MEDS ORDERED: CIPROFLOXACIN 500 MG (CIPRO) TABLET PO STA (15:16)
[2023-03-15] MEDS ORDERED: DICY10CA12 PO (16:37)
[2023-03-15] MEDS ORDERED: METR-145 PO (16:37)
[2023-03-15] MEDS ORDERED: ONDA4TAB11 PO (16:37)
[2023-03-15] MEDS ORDERED: BUDE3CAP5 PO (16:37)
[2023-03-15] MEDS ORDERED: CIPR250T3 PO (16:37)
[2023-03-15 16:43] VITALS: BP 177/93
== END 2023-03-15 16:43 | disposition home or self-care (01) ==
LOC: ER FS 12:10 → EDUNIT# 12:10 → ER FS 16:43
DX: K52.839 Microscopic colitis, unspecified (principal); R73.9 Hyperglycemia, unspecified
CPT/HCPCS: 36415; 51701; 74177; 80053; 81000; 83690; 83880; 84484; 85025; 85610; 85730; 93005; Q9967

== ENCOUNTER 2023-03-20 18:35 | Emergency (ER) | payer MEDICARE, MEDICAID ==
[~2023-03-20] VITALS: Ht 162 cm; Wt 34.5 kg
[~2023-03-20 18:35] MED LIST changes: +BUDE3CAP5 PO; +CIPR250T3 PO; +DICY10CA12 PO; +METR-145 PO
[2023-03-20] MEDS ORDERED: NS IV 500 ML 500 ML IV STA (18:51)
--- NOTE | 2023-03-20 18:57 | ED Abdominal Pain ---
General Chief Complaint: Abdominal/GI Problems Stated Complaint: DIARRHEA Source of Information: Patient Exam Limitations: No Limitations History of Present Illness Date Seen by Provider: Mar 20, 2023 Time Seen by Provider: 18:53 Initial Comments Patient is a 67-year-old female with a history of cirrhosis, microscopic colitis, CHF, coronary artery disease, peripheral vascular disease who was brought to ED by [id number] for generalized abdominal pain and diarrhea. She states she has had diarrhea over the past 2 weeks. 3-4 episodes daily. Initially diarrhea was yellow and now has turned into black stool. She is currently on Plavix. She states she was seen at [facility] this past Wednesday. Patient Was prescribed budesonide, Flagyl, Cipro, Bentyl. Patient stopped the Cipro and Flagyl on Wednesday secondary to the black stool. She is currently taking budesonide. Patient attempted to call her GI specialist at [facility] but was not able to get a hold of them. Patient is concerned for the continue worsening abdominal pain described as crampy located upper abdomen and right sided abdomen. She states she has had decreased appetite. Not eating or drinking. No vomiting. Normal urination. She states she feels extremely weak. She denies fever, chills, chest pain, cough or shortness of breath. Patient does wear oxygen. Patient wears 2 L oxygen daily Allergies and Home Medications Allergies Coded Allergies: No Known Drug Allergies (Verified , 05/13/21) Patient Home Medication List Home Medication List Reviewed: Yes Acetaminophen (Tylenol Extra Strength) 500 Mg Tablet, 1,000 MG PO Q8H PRN for PAIN-MILD (1-4), (Reported) Entered as Reported by: OSBALDO CATHERINE on 06/02/21 0903 Aspirin (Low Dose Aspirin EC) 81 Mg Tablet.dr, 81 MG PO DAILY, (Reported) Entered as Reported by: CHNE CHARLES on 08/18/21 1005 Atorvastatin Calcium (Atorvastatin Calcium) 80 Mg Tablet, 80 MG PO DAILY, (Reported) Entered as Reported by: DOMINIC CAMEJO on 12/09/18 0842 Budesonide (Budesonide ER) 9 Mg Tabdr...er, 9 MG PO DAILY, (Reported) Entered as Reported by: OSBALDO CATHERINE on 07/23/21 1220 Budesonide (Budesonide EC) 3 Mg Capdr...er, 3 MG PO UD Prescribed by: MICHAEL DIALLO on 03/15/23 1637 Carvedilol (Carvedilol) 6.25 Mg Tablet, 6.25 MG PO BID, (Reported) Entered as Reported by: NADEEM BASHIR on 05/07/21 1053 Ciprofloxacin HCl (Ciprofloxacin HCl) 250 Mg Tablet, 250 MG PO BID Prescribed by: MICHAEL DIALLO on 03/15/23 1637 Clopidogrel Bisulfate (Clopidogrel) 75 Mg Tablet, 75 MG PO DAILY, (Reported) Entered as Reported by: OSBALDO CATHERINE on 06/02/21 0900 Dicyclomine HCl (Dicyclomine HCl) 10 Mg Capsule, 10 MG PO TID PRN for ABDOMINAL PAIN Prescribed by: MICHAEL DIALLO on 03/15/23 163 Fluticasone Propionate (Flonase Allergy Relief) 9.9 Ml [place].susp, 1 SPRAY NS DAILY PRN for CONGESTION, (Reported) Entered as Reported by: OSBALDO CATHERINE on 07/23/21 1220 Furosemide (Furosemide) 20 Mg Tablet, 20 MG PO DAILY, (Reported) Entered as Reported by: OSBALDO CATHERINE on 06/02/21 0900 Guaifenesin (Mucinex) 600 Mg Tab.er.12h, 600 MG PO DAILY, (Reported) Entered as Reported by: CHEN CHARLES on 08/18/21 1006 Isosorbide Mononitrate (Isosorbide Mononitrate ER) 30 Mg Tab.er.24h, 30 MG PO DAILY, (Reported) Entered as Reported by: DOMINIC CAMEJO on 12/09/18 0842 Losartan Potassium (Losartan Potassium) 100 Mg Tablet, 50 MG PO DAILY Prescribed by: LUIZ GORDILLO on 08/20/21 1155 Metronidazole (Metronidazole) 500 Mg Tablet, 500 MG PO BID Prescribed by: MICHAEL DIALLO on 03/15/23 1637 Multivitamin/Iron/Folic Acid (Centrum Adults Tablet) 1 Each Tablet, 1 EACH PO DAILY, (Reported) Entered as Reported by: NADEEM BASHIR on 05/07/21 1053 Nitroglycerin (Nitroglycerin) 0.4 Mg Tab.subl, 0.4 MG SL UD PRN for CHEST PAIN (ANGINA), (Reported) Entered as Reported by: NADEEM BASHIR on 05/07/21 1053 Ondansetron (Ondansetron Odt) 4 Mg Tab.rapdis, 4 MG PO Q8H PRN for NAUSEA/VOMITING-1ST LINE, (Reported) Entered as Reported by: CHEN CHARLES on 08/18/21 1002 Ondansetron (Ondansetron Odt) 4 Mg Tab.rapdis, 4 MG PO Q8H PRN for NAUSEA/VOMITING Prescribed by: MICHAEL DIALLO on 03/15/23 1637 Pantoprazole Sodium (Protonix) 40 Mg Tablet.dr, 40 MG PO DAILY, (Reported) Entered as Reported by: OSBALDO CATHERINE on 06/02/21 0900 Potassium Chloride (Potassium Chloride) 10 Meq Tab.er.prt, 10 MEQ PO DAILY, (Reported) Entered as Reported by: OSBALDO CATHERINE on 06/02/21 0900 Potassium Chloride (Potassium Chloride) 20 Meq Tablet.er, 20 MEQ PO BID Prescribed by: KERVIN EASON on 03/20/23 2115 Sucralfate (Sucralfate) 1 Gm Tablet, 1 GM PO WM, (Reported) Entered as Reported by: OSBALDO CATHERINE on 06/02/21 0900 Review of Systems Review of Systems Constitutional: No chills, No diaphoresis, No fever; malaise, weakness EENTM: No Double Vision, No Eye Pain Respiratory: Denies Cough Cardiovascular: Denies Chest Pain, Denies Edema Gastrointestinal: Diarrhea; Denies Nausea; Rectal Bleeding; Denies Vomiting Genitourinary: Denies Burning, Denies Discharge, Denies Drainage Musculoskeletal: No back pain, No joint pain Skin: No change in color All Other Systems Reviewed Negative Unless Noted: Yes Past Skhhkmu-Mzsmwy-Pzqbll Hx Immunizations Up To Date Tetanus Booster (TDap): Unknown First/Initial COVID19 Vaccinat: 2020 Second COVID19 Vaccination Rom: January 2021 Third COVID19 Vaccination Date: 2020 Seasonal Allergies Seasonal Allergies: No Past Medical History Surgery/Hospitalization HX: CAD, Anemia, microscopic colitis, COPD on home oxygen Surgeries: Yes (CARDIAC CATH--STENTS X 2; CERVICAL CONIZATION) Gallbladder Respiratory: Yes COPD, Emphysema Currently Using CPAP: No Cardiac: Yes Coronary Artery Disease, Heart Murmur, High Cholesterol, Hypertension Neurological: No Headaches /Migraines Reproductive Disorders: Yes (CERVICAL DYSPLASIA. 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 Genitourinary: Yes Kidney Infection Gastrointestinal: Yes Colitis, Gastroesophageal Reflux, Gastrointestinal Bleed Musculoskeletal: Yes (ARTHRITIS --KNEES, BACK) Arthritis, Chronic Back Pain Endocrine: No HEENT: Yes Cancer: No Psychosocial: No Integumentary: No Blood Disorders: Yes (ANEMIA --CURRENT PROBLEM STARTING 12/08/18) Family Medical History Heart Disease, Diabetes Physical Exam Vital Signs Vital Signs - First Documented 03/20/23 18:43 Temp 36.6 Pulse 111 Resp 18 B/P (MAP) 196/142 (160) Pulse Ox 98 O2 Delivery Nasal Cannula O2 Flow Rate 2.00 Capillary Refill : Height/Weight/BMI Height: 5'6.00" Weight: 150lbs. 4.8oz. [id number]; 13.00 BMI Method:Stated General Appearance: WD/WN, no apparent distress HEENT: PERRL/EOMI, normal ENT inspection, TMs normal, pharynx normal Neck: non-tender, full range of motion, supple, normal inspection Respiratory: chest non-tender, lungs clear, normal breath sounds, no respiratory distress Cardiovascular: regular rate, rhythm, no edema, no gallop, no JVD Gastrointestinal: normal bowel sounds, soft, no organomegaly, tenderness (Right-sided and upper abdominal tenderness. 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, no motor/sensory deficits, alert, normal mood/affect, oriented x 3 Skin: normal color, warm/dry Focused Exam Lactate Level 03/20/23 19:00: Lactic Acid Level 1.43 Lactic Acid Level Laboratory Tests Test 03/20/23 19:00 Lactic Acid Level 1.43 MMOL/L (0.50-2.00) Progress/Results/Core Measures Results/Orders Lab Results Laboratory Tests Test 03/20/23 18:48 03/20/23 19:00 03/20/23 19:30 Range/Units White Blood Count 9.9 4.3-11.0 10^3/uL Red Blood Count 4.24 3.80-5.11 10^6/uL Hemoglobin 14.4 11.5-16.0 g/dL Hematocrit 41 35-52 % Mean Corpuscular Volume 97 80-99 fL Mean Corpuscular Hemoglobin 34 25-34 pg Mean Corpuscular Hemoglobin Concent 35 32-36 g/dL Red Cell Distribution Width 12.7 10.0-14.5 % Platelet Count 211 130-400 10^3/uL Mean Platelet Volume 9.6 9.0-12.2 fL Immature Granulocyte % (Auto) 1 % Neutrophils (%) (Auto) 78 H 42-75 % Lymphocytes (%) (Auto) 8 L 12-44 % Monocytes (%) (Auto) 10 0-12 % Eosinophils (%) (Auto) 2 0-10 % Basophils (%) (Auto) 0 0-10 % Neutrophils # (Auto) 7.8 1.8-7.8 10^3/uL Lymphocytes # (Auto) 0.8 L 1.0-4.0 10^3/uL Monocytes # (Auto) 1.0 0.0-1.0 10^3/uL Eosinophils # (Auto) 0.2 0.0-0.3 10^3/uL Basophils # (Auto) 0.0 0.0-0.1 10^3/uL Immature Granulocyte # (Auto) 0.1 0.0-0.1 10^3/uL Sodium Level 134 L 135-145 MMOL/L Potassium Level 2.7 L 3.6-5.0 MMOL/L Chloride Level 97 L 98-107 MMOL/L Carbon Dioxide Level 21 21-32 MMOL/L Anion Gap 16 H 5-14 MMOL/L Blood Urea Nitrogen 11 7-18 MG/DL Creatinine 0.66 0.60-1.30 MG/DL Estimat Glomerular Filtration Rate 96 BUN/Creatinine Ratio 17 Glucose Level 106 H 70-105 MG/DL Calcium Level 8.8 8.5-10.1 MG/DL Corrected Calcium 9.0 8.5-10.1 MG/DL Magnesium Level 2.0 1.6-2.4 MG/DL Total Bilirubin 0.9 0.1-1.0 MG/DL Aspartate Amino Transf (AST/SGOT) 28 5-34 U/L Alanine Aminotransferase (ALT/SGPT) 12 0-55 U/L Alkaline Phosphatase 85 40-136 U/L Total Protein 7.1 6.4-8.2 GM/DL Albumin 3.8 3.2-4.5 GM/DL Lipase 35 8-78 U/L Lactic Acid Level 1.43 0.50-2.00 MMOL/L Urine Color YELLOW Urine Clarity CLEAR Urine pH 7.5 5-9 Urine Specific [place] 1.015 L 1.016-1.022 Urine Protein 3+ H NEGATIVE Urine Glucose (UA) NEGATIVE NEGATIVE Urine Ketones NEGATIVE NEGATIVE Urine Nitrite NEGATIVE NEGATIVE Urine Bilirubin NEGATIVE NEGATIVE Urine Urobilinogen 0.2 < = 1.0 MG/DL Urine Leukocyte Esterase TRACE H NEGATIVE Urine RBC (Auto) 1+ H NEGATIVE Urine RBC 2-5 H /HPF Urine WBC 5-10 H /HPF Urine Squamous Epithelial Cells 5-10 /HPF Urine Crystals PRESENT H /LPF Urine Amorphous Sediment FEW GUERITA PHOSPHATE H /LPF Urine Bacteria FEW H /HPF Urine Casts NONE /LPF Urine Mucus NEGATIVE /LPF Urine Culture Indicated YES Micro Results Microbiology 03/20/23 Urine Culture - Final, Complete See Comments My Orders Orders - MIRIAM WHITEHEAD Lactic Acid Analyzer (03/20/23 18:51) Cbc With Automated Diff (03/20/23 18:51) Comprehensive Metabolic Panel (03/20/23 18:51) Lipase (03/20/23 18:51) Magnesium (03/20/23 18:51) Urinalysis (03/20/23 18:51) Ct Abdomen/Pelvis W (03/20/23 18:51) Ns Iv 500 Ml (Sodium Chloride 0.9%) (03/20/23 18:51) Iohexol Injection (Omnipaque 350 Mg/Ml 1 (03/20/23 19:00) Received Contrast (Hold Metformin- Contr (03/20/23 19:00) Ns (Ivpb) (Sodium Chloride 0.9% Ivpb Bag (03/20/23 19:00) Labetalol Injection (Normodyne Injection (03/20/23 19:00) Ekg Tracing (03/20/23 19:00) Fecal Occult Bedside (03/20/23 19:42) Urine Culture (03/20/23 19:30) Fecal Wbc (03/20/23 19:50) Isolation Central Supply Req (03/20/23 19:50) Hydralazine Injection (Apresoline Inject (03/20/23 20:30) Potassium Cl 10meq/50ml Ivpb (Kcl 10 Meq (03/20/23 20:30) Potassium Chloride (Tablet) (K Dur Table (03/20/23 20:30) Medications Given in ED Vital Signs/I&O 03/20/23 03/20/23 18:43 21:29 Temp 36.6 36.6 Pulse 111 92 Resp 18 16 B/P (MAP) 196/142 (160) 161/82 Pulse Ox 98 100 O2 Delivery Nasal Cannula Nasal Cannula O2 Flow Rate 2.00 3.00 Comment Atrial fibrillation with lateral inferior ischemia ST depression.. 94 bpm, QRS duration 118 MS, QTc 474 MS Departure Communication (PCP) Consulted Dr. Fabian regarding the colitis. Recommend continue with been budesonide, antibiotics, Imodium, Pedialyte. Follow-up with her GI specialist. Attempted to admit for dehydration but hospitalist did not feel comfortable keeping patient here secondary to her history of microscopic colitis. Impression Primary Impression: Diarrhea Disposition: HOME, SELF-CARE Condition: Stable Departure-Patient Inst. Decision time for Depature: 21:13 Referrals: DOMINIC JONES APRN (PCP) Primary Care Physician [facility] (Family) Primary Care Physician Patient Instructions: Diarrhea, Adult ED Add. Discharge Instructions: Continue taking your budesonide. Take it with Imodium. Finish your antibiotics. Recommend contacting your GI specialist on Wednesday. Recommend Pedialyte. Clear liquid diet for the next several days until diarrhea and abdominal pain improved and then may increase to more of a bland diet. If increased weakness, fever, abdominal pain to return back to ED. recommend follow-up your PCP in 2 days for recheck of your potassium All discharge instructions reviewed with patient and/or family. Voiced understanding. Scripts Potassium Chloride (Potassium Chloride) 20 Meq Tablet.er 20 MEQ PO BID for 2 Days, #4 TAB Prov: MIRIAM WHITEHEAD 03/20/23 MIRIAM WHITEHEAD Mar 20, 2023 18:57
[2023-03-20 19:00] LABS: BASOPHILS % (AUTO) 0 % (0-10); EOSINOPHILS # (AUTO) 0.2 10^3/uL (0.0-0.3); EOSINOPHILS % (AUTO) 2 % (0-10); HEMATOCRIT 41 % (35-52); HEMOGLOBIN 14.4 g/dL (11.5-16.0); LYMPHOCYTES # (AUTO) 0.8 10^3/uL (1.0-4.0); LYMPHOCYTES % (AUTO) 8 % (12-44); MEAN CORPUSCULAR HEMOGLOBIN 34 pg (25-34); MEAN CORPUSCULAR HGB CONC 35 g/dL (32-36); MEAN CORPUSCULAR VOLUME 97 fL (80-99); MEAN PLATELET VOLUME 9.6 fL (9.0-12.2); MONOCYTES % (AUTO) 10 % (0-12); NEUTROPHILS # (AUTO) 7.8 10^3/uL (1.8-7.8); NEUTROPHILS % (AUTO) 78 % (42-75); PLATELET COUNT 211 10^3/uL (130-400); WHITE BLOOD COUNT 9.9 10^3/uL (4.3-11.0)
[2023-03-20] MEDS ORDERED: LABETALOL HCL 20 MG/4 ML VIAL IV ONE (19:00)
[2023-03-20] MEDS ORDERED: NS 100 ML (IVPB) BAG IV ONE (19:00)
[2023-03-20] MEDS ORDERED: IOHEXOL 350 MG/ML 100 ML (OMNIPAQUE 350) VIAL IV ONE (19:00)
[2023-03-20] MEDS ORDERED: HOLD METFORMIN - RECEIVED CONTRAST 20 ML VIAL IV SCH (19:00)
[2023-03-20 19:04] LABS: ALBUMIN 3.8 GM/DL (3.2-4.5); POTASSIUM 2.7 MMOL/L (3.6-5.0)
[2023-03-20 19:06] LABS: CALCIUM 8.8 MG/DL (8.5-10.1)
[2023-03-20 19:07] LABS: TOTAL PROTEIN 7.1 GM/DL (6.4-8.2)
[2023-03-20 19:09] LABS: BILIRUBIN,TOTAL 0.9 MG/DL (0.1-1.0)
[2023-03-20 19:10] LABS: CREATININE SERUM 0.66 MG/DL (0.60-1.30)
--- NOTE | 2023-03-20 19:36 | Diagnostic Imaging Report ---
PROCEDURE: CT abdomen and pelvis with contrast. TECHNIQUE: Multiple contiguous axial images were obtained through the abdomen and pelvis after administration of intravenous contrast. Auto Exposure Controls were utilized during the CT exam to meet ALARA standards for radiation dose reduction. All CT scans use one or more of the following dose optimizing techniques: automated exposure control, MA and/or KvP adjustment based on patient size and exam type or iterative reconstruction. INDICATION: Diarrhea. COMPARISON: CT abdomen pelvis on 03/15/2023. FINDINGS: Redemonstration of severe aortoiliac, femoral, renal, mesenteric atherosclerotic disease with proximal SMA occlusion, aortic occlusion, and right renal artery occlusion. Severe right renal atrophy. The liver, spleen, adrenal glands, and left kidney are normal. The bowel is nondistended. No apparent pneumatosis or free intraperitoneal air. No abscess. Urinary bladder is normal. The liver is normal. There is similar ectasia of the common bile duct. The osseous structures demonstrate no lytic or sclerotic bone lesions. IMPRESSION: Redemonstration of severe aortoiliac, femoral, renal, mesenteric atherosclerotic disease with proximal SMA occlusion, short segment abdominal aortic occlusion, and right renal artery occlusion. Severe right renal atrophy. No free air, loculated fluid collections, or ascites. No bowel obstruction. Dictated by: Dictated on workstation # [id number]
[2023-03-20 19:37] LABS: BILIRUBIN,URINE NEGATIVE (NEGATIVE); CLARITY,URINE CLEAR; COLOR,URINE YELLOW; GLUCOSE, URINE (UA) NEGATIVE (NEGATIVE); KETONES,URINE NEGATIVE (NEGATIVE); LEUKOCYTE ESTERASE ,URINE TRACE (NEGATIVE); NITRITE,URINE NEGATIVE (NEGATIVE); PH,URINE 7.5 (5-9); PROTEIN,URINE 3+ (NEGATIVE)
[2023-03-20 19:49] LABS: AMORPHOUS SEDIMENT,UR FEW AMOR PHOSPHATE /LPF; BACTERIA,URINE FEW /HPF
[2023-03-20] MEDS ORDERED: hydrALAZINE (APESOLINE) 20 MG/ML VIAL IV ONE (20:30)
[2023-03-20] MEDS ORDERED: KCL 20 MEQ TAB (K-DUR) PO ONE (20:30)
[2023-03-20] MEDS ORDERED: POTASSIUM CL 10MEQ/50ML IVPB 50 ML IV ONE (20:30)
[2023-03-20] MEDS ORDERED: POTA-51 PO (21:15)
[2023-03-20 21:29] VITALS: BP 161/82
== END 2023-03-20 21:29 | disposition home or self-care (01) ==
LOC: EDUNIT# 18:35 → ER 18:38
DX: R19.7 Diarrhea, unspecified (principal); R10.84 Generalized abdominal pain; J44.9 Chronic obstructive pulmonary disease, unspecified; Z87.19 Personal history of other diseases of the digestive system; Z79.02 Long term (current) use of antithrombotics/antiplatelets; Z79.899 Other long term (current) drug therapy; Z99.81 Dependence on supplemental oxygen
CPT/HCPCS: 36415; 74177; 80053; 81000; 82274; 83605; 83690; 83735; 85025; 87088; 93005

== ENCOUNTER 2023-03-23 10:06 | Emergency (ER) | payer MEDICARE, MEDICAID ==
[~2023-03-23] VITALS: Ht 165 cm; Wt 32.0 kg
[~2023-03-23 10:06] MED LIST changes: +POTA-51 PO
[2023-03-23] MEDS ORDERED: ASPIRIN 81 MG CHEW (CHILDREN'S ASA) ONE (10:44)
[2023-03-23] MEDS ORDERED: NS IV 1000 ML 0 ML ONE (10:44)
[2023-03-23] MEDS: NS IV 1000 ML 1,000 ML IV SCH ×2 (10:45→12:15)
[2023-03-23] MEDS ORDERED: NS (IVPB) 250 ML ONE (11:46)
[2023-03-23] MEDS ORDERED: VANCOMYCIN 1000 MG/VIAL ONE (11:46)
[2023-03-23] MEDS ORDERED: PIPERACILLIN/TAZO 4.5 GM VIAL (ZOSYN) IV ONE (11:47)
[2023-03-23] MEDS ORDERED: NS (IVPB) 100 ML ONE (11:47)
[2023-03-23] MEDS ORDERED: IOHEXOL 350 MG/ML 100 ML (OMNIPAQUE 350) VIAL IV ONE (12:15)
[2023-03-23] MEDS ORDERED: HOLD METFORMIN - RECEIVED CONTRAST 20 ML VIAL IV SCH (12:15)
[2023-03-23] MEDS ORDERED: NS 100 ML (IVPB) BAG IV ONE (12:15)
[2023-03-23] MEDS: NS IV 1000 ML 1,000 ML ONE ×2 (12:15→12:42)
[2023-03-23] MEDS ORDERED: fentaNYL INJ 100 MCG/2 ML AMP ONE (12:39)
--- NOTE | 2023-03-23 14:40 | Diagnostic Imaging Report ---
EXAMINATION: Chest 1 view HISTORY: SOB COMPARISON: 04/10/2022. FINDINGS: Heart size and pulmonary vasculature are normal. Stable hyperinflation of the lungs. No consolidation, pleural effusion, or pneumothorax. The osseous structures are intact. IMPRESSION: 1. Stable findings, suggestive of COPD without other acute radiographic abnormality in the chest. Dictated by: Dictated on workstation # [id number]
[2023-03-23 14:45] VITALS: BP 133/81
--- NOTE | 2023-03-23 14:54 | ED Abdominal Pain ---
General Chief Complaint: Abdominal/GI Problems Stated Complaint: LOW BP Nursing Triage Note: ABD PAIN SINCE 2020, CHRONIC DIARRHEA. REPORTS THE PAIN IS WORSE TODAY. History of Present Illness Date Seen by Provider: March 23, 2023 Time Seen by Provider: 10:09 Initial Comments 67-year-old female with PMH of CHF/COPD/CAD with stents placed in 2015/A-fib on Plavix/on baseline home oxygen of 3 L, is brought in from EMS from urgent care for acute on chronic abdominal pain which has been worsening today. Urgent care reports that patient was hypotensive there and that is why they sent her to the ER. In the ER, patient's blood pressure has been grossly elevated. Patient states that she has had abdominal pain since 2020, and today morning has been acutely worsening. Patient states that she came in 2 times before to the ER with complaints of abdominal pain, and was treated for hypokalemia. Patient reports of having continuing abdominal pain without any relief, with worsening intensity today morning. Patient states that she has not been eating much due to the pain, which is present in the lower right and left quadrants. Patient reports that it is constant, and 10/10 in severity. Patient states that she has diarrhea for the past 2 to 3 years and has been chronic in nature. Denies fever and chills, chest pain, palpitations, shortness of breath, hematemesis, hemoptys is, melena, hematochezia. Allergies and Home Medications Allergies Coded Allergies: No Known Drug Allergies (Verified , 05/13/21) Patient Home Medication List Home Medication List Reviewed: Yes Acetaminophen (Tylenol Extra Strength) 500 Mg Tablet, 1,000 MG PO Q8H PRN for PAIN-MILD (1-4), (Reported) Entered as Reported by: OSBALDO CATHERINE on 06/02/21 0903 Aspirin (Low Dose Aspirin EC) 81 Mg Tablet.dr, 81 MG PO DAILY, (Reported) Entered as Reported by: CHEN CHARLES on 08/18/21 1005 Atorvastatin Calcium (Atorvastatin Calcium) 80 Mg Tablet, 80 MG PO DAILY, (Reported) Entered as Reported by: DOMINIC CAMEJO on 12/09/18 0842 Budesonide (Budesonide ER) 9 Mg Tabdr...er, 9 MG PO DAILY, (Reported) Entered as Reported by: OSBALDO CATHERINE on 07/23/21 1220 Budesonide (Budesonide EC) 3 Mg Capdr...er, 3 MG PO UD Prescribed by: MICHAEL DIALLO on 03/15/23 1637 Carvedilol (Carvedilol) 6.25 Mg Tablet, 6.25 MG PO BID, (Reported) Entered as Reported by: NADEEM BASHIR on 05/07/21 1053 Ciprofloxacin HCl (Ciprofloxacin HCl) 250 Mg Tablet, 250 MG PO BID Prescribed by: MICHAEL DIALLO on 03/15/23 1637 Clopidogrel Bisulfate (Clopidogrel) 75 Mg Tablet, 75 MG PO DAILY, (Reported) Entered as Reported by: OSBALDO CATHERINE on 06/02/21 0900 Dicyclomine HCl (Dicyclomine HCl) 10 Mg Capsule, 10 MG PO TID PRN for ABDOMINAL PAIN Prescribed by: MICHAEL DIALLO on 03/15/23 163 Fluticasone Propionate (Flonase Allergy Relief) 9.9 Ml [place].susp, 1 SPRAY NS DAILY PRN for CONGESTION, (Reported) Entered as Reported by: OSBALDO CATHERINE on 07/23/21 1220 Furosemide (Furosemide) 20 Mg Tablet, 20 MG PO DAILY, (Reported) Entered as Reported by: OSBALDO CATHERINE on 06/02/21 0900 Guaifenesin (Mucinex) 600 Mg Tab.er.12h, 600 MG PO DAILY, (Reported) Entered as Reported by: CHEN CHARLES on 08/18/21 1006 Isosorbide Mononitrate (Isosorbide Mononitrate ER) 30 Mg Tab.er.24h, 30 MG PO DAILY, (Reported) Entered as Reported by: DOMINIC CAMEJO on 12/09/18 0842 Losartan Potassium (Losartan Potassium) 100 Mg Tablet, 50 MG PO DAILY Prescribed by: LUIZ GORDILLO on 08/20/21 1155 Metronidazole (Metronidazole) 500 Mg Tablet, 500 MG PO BID Prescribed by: MICHAEL DIALLO on 03/15/23 1637 Multivitamin/Iron/Folic Acid (Centrum Adults Tablet) 1 Each Tablet, 1 EACH PO DAILY, (Reported) Entered as Reported by: NADEEM BASHIR on 05/07/21 1053 Nitroglycerin (Nitroglycerin) 0.4 Mg Tab.subl, 0.4 MG SL UD PRN for CHEST PAIN (ANGINA), (Reported) Entered as Reported by: NADEEM BASHIR on 05/07/21 1053 Ondansetron (Ondansetron Odt) 4 Mg Tab.rapdis, 4 MG PO Q8H PRN for NAUSEA/VOMITING-1ST LINE, (Reported) Entered as Reported by: CHEN CHARLES on 08/18/21 1002 Ondansetron (Ondansetron Odt) 4 Mg Tab.rapdis, 4 MG PO Q8H PRN for NAUSEA/VOMITING Prescribed by: MICHAEL DIALLO on 03/15/23 1637 Pantoprazole Sodium (Protonix) 40 Mg Tablet.dr, 40 MG PO DAILY, (Reported) Entered as Reported by: OSBALDO CATHERINE on 06/02/21 0900 Potassium Chloride (Potassium Chloride) 10 Meq Tab.er.prt, 10 MEQ PO DAILY, (Reported) Entered as Reported by: OSBALDO CATHERINE on 06/02/21 0900 Potassium Chloride (Potassium Chloride) 20 Meq Tablet.er, 20 MEQ PO BID Prescribed by: KERVIN EASON on 03/20/23 2115 Sucralfate (Sucralfate) 1 Gm Tablet, 1 GM PO WM, (Reported) Entered as Reported by: OSBALDO CATHERINE on 06/02/21 0900 Review of Systems Review of Systems Constitutional: see HPI EENTM: No Symptoms Reported Respiratory: No Symptoms Reported Cardiovascular: No Symptoms Reported Gastrointestinal: Abdominal Pain, Diarrhea, Poor Appetite Genitourinary: No Symptoms Reported Musculoskeletal: no symptoms reported Skin: no symptoms reported Psychiatric/Neurological: No Symptoms Reported Endocrine: No Symptoms Reported Hematologic/Lymphatic: No Symptoms Reported Past Disetbs-Nnrewu-Omtcvg Hx Patient Social History Tobacco Use?: Yes Tobacco type used: Cigarettes Smoking Status: Former Smoker Use of E-Cig and/or Vaping dev: No Substance use?: No Alcohol Use?: No Pt feels they are or have been: No Immunizations Up To Date Tetanus Booster (TDap): Unknown First/Initial COVID19 Vaccinat: 2020 Second COVID19 Vaccination Rom: January 2021 Third COVID19 Vaccination Date: 2020 Seasonal Allergies Seasonal Allergies: No Past Medical History Surgery/Hospitalization HX: PAD, CAD, Anemia, microscopic colitis, COPD on home oxygen, LIVER DISEASE, CHF, HTN Surgeries: Yes (CARDIAC CATH--STENTS X 2; CERVICAL CONIZATION) Gallbladder Respiratory: Yes COPD, Emphysema Currently Using CPAP: No Cardiac: Yes Coronary Artery Disease, Heart Murmur, High Cholesterol, Hypertension Neurological: No Headaches /Migraines Reproductive Disorders: Yes (CERVICAL DYSPLASIA. --S/P CRYOTHERAPY AND CONIZATION) SMOKE TESTER History: Menopausal Genitourinary: Yes Kidney Infection Gastrointestinal: Yes Colitis, Gastroesophageal Reflux, Gastrointestinal Bleed Musculoskeletal: Yes (ARTHRITIS --KNEES, BACK) Arthritis, Chronic Back Pain Endocrine: No HEENT: Yes Cancer: No Psychosocial: No Integumentary: No Blood Disorders: Yes (ANEMIA --CURRENT PROBLEM STARTING 12/08/18) Family Medical History Heart Disease, Diabetes Physical Exam Vital Signs Vital Signs - First Documented 03/23/23 10:10 Temp 36.3 Pulse 77 Resp 16 B/P (MAP) 182/91 (121) Pulse Ox 100 O2 Delivery Nasal Cannula O2 Flow Rate 3.00 Capillary Refill : Less Than 3 Seconds Height/Weight/BMI Height: 5'6.00" Weight: 150lbs. 4.8oz. 68.184200ln; 11.00 BMI Method:Stated General Appearance: WD/WN, moderate distress, cachetic, thin HEENT: PERRL/EOMI, normal ENT inspection Neck: full range of motion Respiratory: chest non-tender, lungs clear, normal breath sounds, no respiratory distress Cardiovascular: irregularly irregular Gastrointestinal: non tender, soft, guarding (Mild), tenderness (In right lower quadrant and left lower quadrant), other (Bowel sounds heard but distant) Extremities: normal range of motion Back: no CVA tenderness Neurologic/Psychiatric: alert, normal mood/affect, oriented x 3 Skin: pallor Progress/Results/Core Measures Results/Orders My Orders Orders - ELIAS HERNANDEZ MD Iv 1000 Ml (Sodium Chloride 0.9%) (03/23/23 10:44) Aspirin Chewable Tablet (Baby Aspirin Ch (03/23/23 10:44) Vancomycin Injection (Vancomycin Injecti (03/23/23 11:46) Ns (Ivpb) (Sodium Chloride 0.9%) (03/23/23 11:46) Piperacillin Sodium/Tazobactam (Zosyn Vi (03/23/23 11:47) Ns (Ivpb) (Sodium Chloride 0.9% Ivpb Bag (03/23/23 11:47) Ct Cheryl Chest/Noang Abd-Pelv W (03/23/23 ) Iohexol Injection (Omnipaque 350 Mg/Ml 1 (03/23/23 12:15) Received Contrast (Hold Metformin- Contr (03/23/23 12:15) Ns (Ivpb) (Sodium Chloride 0.9% Ivpb Bag (03/23/23 12:15) Fentanyl Inj (Sublimaze Injection) (03/23/23 12:39) Ns Iv 1000 Ml (Sodium Chloride 0.9%) (03/23/23 12:39) Chest 1 View Ap/Pa Only (03/23/23 ) Vital Signs/I&O 03/23/23 10:10 Temp 36.3 Pulse 77 Resp 16 B/P (MAP) 182/91 (121) Pulse Ox 100 O2 Delivery Nasal Cannula O2 Flow Rate 3.00 Blood Pressure Mean: 121 Progress Progress Note : Progress Note The Internet, EMR, phones, Wi-Fi, ability to transfer CT scan images, iCloud images, image reports, were all down and only came back at around 14: 45 today. Paper orders were given and it took time for reports to come back in for phone calls to be made. 1. 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 See report This report was given to me verbally by Dr. Horton, radiologist at [facility] because the Internet is not working, EMR is not working, unable to send radiology reports or review radiology images clearly, unable to iCloud images. Once the system was up, radiologist called me and relayed that there was a total occlusion of the distal abdominal aorta and patient will likely need intervention. CBC: Elevated WBC: 11.65 Lactic acid of 5.28 Blood culture sent NS IVF bolus x 2 Vanco & Zosyn iv STAT Fentanyl 50 mcg iv STAT Patient will be transferred to for vascular surgery consult and management 2. ELEVATED D-DIMER: D-dimer is 2.21 CTA CHEST: no PE 3. ELEVTAE BNP: CHRONIC CHF: BNP is 6,288 Although BNP is elevated, patient does not show any clinical signs of fluid overload. Patient is on Lasix at home and is compliant with management. Initial ECG Impression Date: March 23, 2023 Initial ECG Impression Time: 10:18 Initial ECG Rate: 78 Initial ECG Rhythm: A Fib/Flutter Initial ECG Impression: Atrial Fibrillation Diagnostic Imaging Diagonstic Imaging: Xray, CT Plain Films/CT/US/NM/MRI: chest, abdomen Comments [facility] [place], [place] NAME: ILIR HOOK [facility] REC#: [id number] PT STATUS: REG ER : 1955 PHYSICIAN: ELIAS HERNANDEZ MD ADMIT DATE: 03/23/23/ER FS Draft Date of Exam:03/23/23 CT CHERYL CHEST/NOANG ABD-PELV W INDICATION: HX OF BLOOD CLOTS IN VENA CAVA CTA chest, abdomen and pelvis Thin axial sections through the chest, abdomen and pelvis are obtained following intravenous contrast bolus. Multiplanar MIP images were reconstructed and reviewed. All CT scans use one or more of the following dose optimizing techniques: automated exposure control, MA and/or KvP adjustment based on patient size and exam type or iterative reconstruction. COMPARISON: Comparison is made with prior CT abdomen and pelvis study from 03/20/2023. FINDINGS: CT ANGIOGRAM CHEST: Evaluation of the pulmonary arterial system is without evidence of thromboembolism. No definite filling defects are seen within central, lobar or segmental branches. Thoracic aorta is heavily calcified but nonaneurysmal. No definite dissection is seen. There is no pericardial or pleural fluid identified. There is some scarring in the left lung apex. There are significant centrilobular emphysematous changes in both lungs. No infiltrates are seen. CT ABDOMEN AND PELVIS WITH CONTRAST: The abdominal aorta is heavily calcified. There is significant thrombus within the aorta as well. The amount of thrombus in the distal abdominal aorta does appear to be increased since the CT from several days earlier on March 20, 2023. There is near-total occlusion of the distal abdominal aorta. There is trace amount of contrast within the lumen of the distal abdominal aorta. There also appears to be probable occlusion of the left common iliac artery which is similar to prior exam. Both common and external iliac arteries are heavily calcified. Evaluation for patency is difficult due to significant calcification. The liver is unremarkable. Pancreas and spleen are unremarkable. No adrenal mass is identified. Right kidney is atrophic. Left kidney is unremarkable. Bowel loops appear nonobstructed. No definite bowel wall thickening or pneumatosis is seen. No portal venous gas is identified. No free fluid is identified. The uterus and bladder are unremarkable. IMPRESSION: 1. No evidence of pulmonary embolism or acute aortic disease. 2. Severe centrilobular emphysematous changes. 3. Significant increase in the amount of thrombus within the distal abdominal aorta when compared with CT study from three days earlier. There is subtotal occlusion of the distal abdominal aorta. 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 No definite secondary findings of mesenteric ischemia are identified. Dictated on workstation # [id number] Dict: 03/23/23 1438 Trans: 03/23/23 1502 [id number] [id number] Interpreted by: TEE HORTON MD Electronically signed by: [facility] [place] [place] NAME: ILIR HOOK [facility] REC#: [id number] PT STATUS: REG ER : 1955 PHYSICIAN: ELIAS HERNANDEZ MD ADMIT DATE: 03/23/23/ER FS Signed Date of Exam:03/23/23 CHEST 1 VIEW AP/PA ONLY EXAMINATION: Chest 1 view HISTORY: SOB COMPARISON: 04/10/2022. FINDINGS: Heart size and pulmonary vasculature are normal. Stable hyperinflation of the lungs. No consolidation, pleural effusion, or pneumothorax. The osseous structures are intact. IMPRESSION: 1. Stable findings, suggestive of COPD without other acute radiographic abnormality in the chest. Dictated by: Dictated on workstation # [id number] Dict: 03/23/23 1437 Trans: 03/23/23 1445 [id number] [id number] Interpreted by: PALOMO RUVALCABA DO Electronically signed by: PALOMO RUVALCABA DO 03/23/23 1445 Departure Impression Primary Impression: Sepsis Additional Impressions: Abdominal pain Elevated brain natriuretic peptide (BNP) level Elevated d-dimer Aortic occlusion Disposition: [facility]M HOSP Condition: Stable/Unchanged Admissions Decision to Admit Reason: Admit from ER (General) Decision to Admit/Date: March 23, 2023 Time/Decision to Admit Time: 10:30 Transfer Transfer Reason: Exceeds level of care Time Spoke to Accepting Phy: 13:50 Transfer Progress Notes Accpeted for transfer to by Dr Lei, vascular surgeon Transfer Facility: Method of Transfer: EMS Departure-Patient Inst. Referrals: DOMINIC JONES APRN (PCP) Primary Care Physician [facility] (Family) Primary Care Physician ELIAS HERNANDEZ MD March 23, 2023 14:54
--- NOTE | 2023-03-23 15:03 | Diagnostic Imaging Report ---
INDICATION: HX OF BLOOD CLOTS IN VENA CAVA CTA chest, abdomen and pelvis Thin axial sections through the chest, abdomen and pelvis are obtained following intravenous contrast bolus. Multiplanar MIP images were reconstructed and reviewed. All CT scans use one or more of the following dose optimizing techniques: automated exposure control, MA and/or KvP adjustment based on patient size and exam type or iterative reconstruction. COMPARISON: Comparison is made with prior CT abdomen and pelvis study from 03/20/2023. FINDINGS: CT ANGIOGRAM CHEST: Evaluation of the pulmonary arterial system is without evidence of thromboembolism. No definite filling defects are seen within central, lobar or segmental branches. Thoracic aorta is heavily calcified but nonaneurysmal. No definite dissection is seen. There is no pericardial or pleural fluid identified. There is some scarring in the left lung apex. There are significant centrilobular emphysematous changes in both lungs. No infiltrates are seen. CT ABDOMEN AND PELVIS WITH CONTRAST: The abdominal aorta is heavily calcified. There is significant thrombus within the aorta as well. The amount of thrombus in the distal abdominal aorta does appear to be increased since the CT from several days earlier on March 20, 2023. There is near-total occlusion of the distal abdominal aorta. There is trace amount of contrast within the lumen of the distal abdominal aorta. There also appears to be probable occlusion of the left common iliac artery which is similar to prior exam. Both common and external iliac arteries are heavily calcified. Evaluation for patency is difficult due to significant calcification. The liver is unremarkable. Pancreas and spleen are unremarkable. No adrenal mass is identified. Right kidney is atrophic. Left kidney is unremarkable. Bowel loops appear nonobstructed. No definite bowel wall thickening or pneumatosis is seen. No portal venous gas is identified. No free fluid is identified. The uterus and bladder are unremarkable. IMPRESSION: 1. No evidence of pulmonary embolism or acute aortic disease. 2. Severe centrilobular emphysematous changes. 3. Significant increase in the amount of thrombus within the distal abdominal aorta when compared with CT study from three days earlier. There is subtotal occlusion of the distal abdominal aorta. 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 No definite secondary findings of mesenteric ischemia are identified. Dictated by: Dictated on workstation # [id number]
[2023-03-23 15:37] LABS: BASOPHILS # (AUTO) 0.1 10^3/uL (0.0-0.1); BASOPHILS % (AUTO) 0 % (0-10); EOSINOPHILS # (AUTO) 0.2 10^3/uL (0.0-0.3); EOSINOPHILS % (AUTO) 1 % (0-10); HEMATOCRIT 40 % (35-52); HEMOGLOBIN 13.4 g/dL (11.5-16.0); LYMPHOCYTES # (AUTO) 0.9 10^3/uL (1.0-4.0); LYMPHOCYTES % (AUTO) 8 % (12-44); MEAN CORPUSCULAR HEMOGLOBIN 33 pg (25-34); MEAN CORPUSCULAR HGB CONC 33 g/dL (32-36); MEAN CORPUSCULAR VOLUME 100 fL (80-99); MEAN PLATELET VOLUME 9.7 fL (9.0-12.2); MONOCYTES # (AUTO) 0.9 10^3/uL (0.0-1.0); MONOCYTES % (AUTO) 7 % (0-12); NEUTROPHILS # (AUTO) 9.5 10^3/uL (1.8-7.8); NEUTROPHILS % (AUTO) 82 % (42-75); PLATELET COUNT 242 10^3/uL (130-400); WHITE BLOOD COUNT 11.7 10^3/uL (4.3-11.0)
[2023-03-23 15:46] LABS: FIBRIN DEGRADATION PRODUCTS 2.21 UG/ML (0.00-0.49); INR 1.1 (0.8-1.4); LYMPHOCYTES % (MANUAL) 3 %; NEUTROPHILS % (MANUAL) 88 %; PROTHROMBIN TIME PATIENT 14.6 SEC (12.2-14.7)
[2023-03-23 15:47] LABS: EOSINOPHILS % (MANUAL) 2 %; METAMYELOCYTES % 1 %; MONOCYTES % (MANUAL) 6 %; POIKILOCYTOSIS 1+
[2023-03-23 15:49] LABS: BILIRUBIN,URINE NEGATIVE (NEGATIVE); CLARITY,URINE CLEAR; COLOR,URINE YELLOW; GLUCOSE, URINE (UA) NEGATIVE (NEGATIVE); KETONES,URINE NEGATIVE (NEGATIVE); LEUKOCYTE ESTERASE ,URINE NEGATIVE (NEGATIVE); NITRITE,URINE NEGATIVE (NEGATIVE); PROTEIN,URINE NEGATIVE (NEGATIVE)
[2023-03-23 16:00] LABS: CHLORIDE 98 MMOL/L (98-107); POTASSIUM 3.5 MMOL/L (3.6-5.0); SODIUM 134 MMOL/L (135-145)
[2023-03-23 16:01] LABS: ALANINE AMINOTRANSFERASE 6 U/L (0-55); ALBUMIN 3.2 GM/DL (3.2-4.5); ALKALINE PHOSPHATASE 88 U/L (40-136); BILIRUBIN,TOTAL 0.6 MG/DL (0.1-1.0); BUN/CREATININE RATIO 14; CALCIUM 8.5 MG/DL (8.5-10.1); CARBON DIOXIDE 19 MMOL/L (21-32); CREATININE SERUM 0.74 MG/DL (0.60-1.30); GFR ESTIMATED 89; GLUCOSE 206 MG/DL (70-105); LIPASE 36 U/L (8-78); TOTAL PROTEIN 6.2 GM/DL (6.4-8.2)
[2023-03-23 16:13] LABS: BACTERIA,URINE NEGATIVE /HPF; SQUAMOUS EPITHELIAL CELL,UR RARE /HPF
[2023-03-23] MEDS ORDERED: ASPIRIN 81 MG CHEW (CHILDREN'S ASA) PO ONE (16:30)
[2023-03-23] MEDS ORDERED: VANCOMYCIN INJECTION 1,000 MG in NS (IVPB) 250 ML IV ONE (16:30)
[2023-03-23] MEDS ORDERED: PIPERACILLIN SODIUM/TAZOBACTAM 4.5 GM in NS (IVPB) 100 ML IV ONE (16:30)
[2023-03-23] MEDS ORDERED: fentaNYL INJ 100 MCG/2 ML AMP IVP ONE (16:30)
[2023-03-23] MEDS ORDERED: NS IV 1000 ML 1,000 ML IV SCH (17:00)
== END 2023-03-23 14:45 | disposition short-term general hospital (02) ==
LOC: EDUNIT# 10:06 → ER FS 10:07
DX: I74.09 Other arterial embolism and thrombosis of abdominal aorta (principal); A41.9 Sepsis, unspecified organism; R79.1 Abnormal coagulation profile; R79.89 Other specified abnormal findings of blood chemistry; I48.91 Unspecified atrial fibrillation; J44.9 Chronic obstructive pulmonary disease, unspecified; G89.29 Other chronic pain; I11.0 Hypertensive heart disease with heart failure; I50.9 Heart failure, unspecified; D72.829 Elevated white blood cell count, unspecified; F17.210 Nicotine dependence, cigarettes, uncomplicated; Z79.02 Long term (current) use of antithrombotics/antiplatelets; Z99.81 Dependence on supplemental oxygen; Z95.5 Presence of coronary angioplasty implant and graft; Z79.899 Other long term (current) drug therapy
CPT/HCPCS: 36415; 71045; 71275; 74177; 80053; 81000; 83605; 83690; 83880; 84484; 85007; 85027; 85379; 85610; 85730; 93005; Q9967